=== PATIENT | female | born 1935 | race Caucasian/White ===

== ENCOUNTER → 2017-03-19 | Outpatient (CLI) | payer OTHER, MEDICARE ==
[~2017-03-19] MED LIST: AMOX500C3 PO; CALC12502 PO; CHOL100027 PO; CMD2 PO; DRON400T PO; FURO20TA PO; HYDR12.55 PO; LISI10TA PO; METH10TA6; METO50TA7 PO; MULT-506 PO; NITR0.4S UT; WARF1TAB PO
== END | disposition home or self-care (01) ==
LOC: C.LABBC 13:13
PROVIDERS: ATTEND Internal Medicine Endocrinology, Diabetes & Metabolism
DX: E05.90 Thyrotoxicosis, unspecified without thyrotoxic crisis or storm (principal)

== ENCOUNTER 2017-08-06 06:01 | Day surgery (SDC) | payer OTHER, MEDICARE ==
[2017-07-23 16:18] LABS: HEMATOCRIT 39.1 % (37-47); MEAN CELL VOLUME 93.1 fL (80-100); MEAN CORPUSCULAR HEMOGLOBIN 29.5 pg (25-34); MEAN CORPUSCULAR HGB CONC 31.7 g/dl (32-36); MEAN PLATELET VOLUME 9.6 fL (7.4-10.4); PLATELET COUNT 167 K/uL (130-400); WHITE BLOOD COUNT 5.07 K/uL (4.8-10.8)
[2017-07-23 16:33] LABS: INR 1.7 (0.9-1.1); PARTIAL THROMBOPLASTIN RATIO 1.3; PROTHROMBIN TIME (PATIENT) 18.4 SECONDS (9.0-12.0)
[2017-07-23 16:52] LABS: BLOOD UREA NITROGEN 14 mg/dl (7-18); BUN/CREATININE RATIO 16.4 (10-20); CARBON DIOXIDE 29 mmol/L (21-32); CHLORIDE 104 mmol/L (98-107); CREATININE 0.85 mg/dl (0.60-1.20); GLUCOSE 138 mg/dl (70-99); POTASSIUM 3.9 mmol/L (3.5-5.1); SODIUM 140 mmol/L (136-145)
[~2017-08-06] VITALS: Ht 170.2 cm; Wt 82.0 kg
[~2017-08-06 06:01] MED LIST changes: -AMOX500C3 PO; -FURO20TA PO; -METH10TA6
[2017-08-06 06:26] VITALS: BP 156/69; PULSE 67; TEMP 36.6; O2SAT 97; Ht 170.2 cm; Wt 82.0 kg
[2017-08-06] MEDS ORDERED: NURSING VERBAL MED ORDER ONE (07:02)
[2017-08-06] MEDS ORDERED: SODIUM CHLORIDE 0.9% 1000ML 1,000 ML IV SCH (07:15)
[2017-08-06 07:29] LABS: INR 1.4 (0.9-1.1); PARTIAL THROMBOPLASTIN RATIO 1.2; PROTHROMBIN TIME (PATIENT) 15.3 SECONDS (9.0-12.0)
[2017-08-06] MEDS ORDERED: LIDOCAINE HCL 1% 20 ML VIAL ONE (07:47)
[2017-08-06] MEDS ORDERED: MIDAZOLAM HCL 1 MG/ML 2ML VIAL ONE (07:49)
[2017-08-06] MEDS ORDERED: FENTANYL CITRATE INJ 50 MCG/1 ML 2 ML VIAL ONE (07:49)
[2017-08-06] MEDS ORDERED: SODIUM BICARB 8.4% INJ 50 MEQ/50 ML SYR IV ONE (07:50)
[2017-08-06] MEDS ORDERED: LIDOCAINE/EPINEPHRINE 1% INJ 50 ML VIAL ONE (07:50)
[2017-08-06 07:54] VITALS: BP 156/69; PULSE 67; TEMP 36.6; O2SAT 97
--- NOTE | 2017-08-06 08:03 | History & Physical Bridge Note ---
H&P Re-Evaluation Bridge Note: I have examined the patient, reviewed the History & Physical and in the interval since the performance of the History & Physical I have noted the following changes of clinical significance: No changes noted
--- NOTE | 2017-08-06 08:04 | Procedure Note ---
Pre-Mod Sedation Assessment General Date of Moderate Sedation: Aug 06, 2017. Vital Signs: Vital Signs Past 12 Hours Date Time Temp Pulse Resp B/P (MAP) Pulse Ox O2 Delivery O2 Flow Rate FiO2 08/06/17 07:54 36.6 67 20 156/69 97 Room Air 08/06/17 06:26 36.6 67 20 156/69 (98) 97 Room Air Review Cardiovascular: regular rate, rhythm, no edema Abdomen: normal bowel sounds, non tender Lungs: chest non-tender, lungs clear Airway Class: III Pre-Sedation Airway Assessment Oral Cavity: Dentures Able to Visualize Vocal Cords: No Short Thick Neck: No Hx of Sleep Apnea: No Smoking Status: Never Smoker Mallampati Classification: Class III ASA Classification: Class II Procedure Planning Contraindications-for Mod Sed: None Yes Notes The planned sedation has been discussed with the patient and consent obtained. I have identified the patient, determined the appropriateness of sedation and have assessed the patient immediately prior to the procedure. All medicine(s) and interventions are by my order.
[2017-08-06] MEDS ORDERED: LIDOCAINE HCL 1% 20 ML VIAL INJ ONE ×2 (08:37→08:47)
[2017-08-06] MEDS ORDERED: ORM MISCELLANEOUS MED XX ONE (09:00)
--- NOTE | 2017-08-06 09:14 | Procedure Note ---
Post-Mod Sedation Assessment General Date of Moderate Sedation Aug 06, 2017. Vital Signs: Vital Signs Past 12 Hours Date Time Temp Pulse Resp B/P (MAP) Pulse Ox O2 Delivery O2 Flow Rate FiO2 08/06/17 07:54 36.6 67 20 156/69 97 Room Air 08/06/17 06:26 36.6 67 20 156/69 (98) 97 Room Air Review - Discharge Criteria Vital Signs Stable: Yes Alert/Oriented/Conversant: Yes Returned to Baseline Mental St: Yes Nausea Absent/Minimal: Yes Pain/Discomfort/Absent/Minimal: Yes Normal/Baseline Respirations: Yes Active Bleeding?: No Pt Received D/C Instructions: Yes Prescriptions Given: None Specific Proced. D/C Criteria Distal Pulses Present (Cardiac: N/A Groin site assessed-Card Cath: N/A Voided Prior To Discharge: N/A Discharged Patients Adult Escort/Transportation: Yes
--- NOTE | 2017-08-06 09:15 | [facility] Operative Report ---
Operative Report Operative Date Aug 06, 2017. Pre-Operative Diagnosis Chronic venous insufficiency Post-Operative Diagnosis Chronic venous Insufficiency Procedure(s) Performed Left GSV RFA Surgeon [employer] Surgeon(s) None Estimated Blood Loss 5 Findings Dilated left GSV Specimens None Drains None Anesthesia Local Complication(s) None Disposition Recovery Room / PACU Indications Venous ulcerations Description of Procedure US guided access Left GSV below the knee. Catheter inserted, 3cm from SFJ. Tumescent injected. US confirmed not in deep system. 3:20, 10 cycles of RFA left GSV. No complications. Patient tolerated well. US confirmed no DVT post procedure. I attest to the content of the Intraoperative Record and any orders documented therein. Any exceptions are noted below.
--- NOTE | 2017-08-06 09:16 | Discharge Instructions ---
Discharge Instructions Procedure Procedure Date: Aug 06, 2017. Reason for Visit: Chronic Venous Insufficiency,Z01.818. Discharge Discharge Date: Aug 06, 2017. Discharge Diagnosis: Chronic venous insufficiency Last Recorded Wt (Kilograms): 82 Anesthesia Post Anesthesia Instructions: * Call surgeon for: 1. Temperature elevations greater than 101 degrees F. 2. Uncontrollable pain. 3. Excessive bleeding. 4. Persistent nausea and vomiting. 5. Medication intolerance (nausea, vomiting or rash). * For nausea and vomiting use only clear liquids such as: tea, soda, bouillon until nausea subsides, then gradually increase diet as tolerated. * If you have any concerns or questions, call your surgeon's office. If physician is unavailable and it is an emergency, call 911 or go to the nearest emergency room. Instructions Activity Recommendations: limitations (Can resume normal activities today) Recommended Home Diet: resume previous diet Allergies: Coded Allergies: Sulfa Antibiotics (Verified Allergy, Severe, rash, 08/06/17) Latex1 -Allergic Contact Dermititis (Verified Allergy, Unknown, UNKNOWN, 08/06/17) Follow Up Additional Instructions: Follow instructions as outlined in paperwork from Dr. Garibay' office. Up walking today. Follow up Ultrasound as scheduled. IGOR wrap until scheduled ultrasound Post ultrasound wear compression stockings indefinitely. Any severe pain, present to the emergency room for evaluation for DVT. Follow-up with: As scheduled Shelly Orellana Recommendations: Call your doctor if: * Temperature above 101 degrees * Pain not relieved by pain medicine ordered * There is increased drainage or redness from any incision * You have any unanswered questions or concerns. Your Doctors Instructions noted above were prepared by provider Jose David Garibay. Patient Signature Section: Patient Instructions Signature Page Radha Everett Patient (or Guardian) Signature/Date: I have read and understand the instructions given to me by my caregivers. Caregiver/RN/Doctor Signature/Date: The above-named patient and/or guardian has received patient instructions on this date. + Original Patient Signature Page (only) stays with chart. Please make copy for patient.
[2017-08-06 09:35] VITALS: BP 137/53; PULSE 61; TEMP 36.7; O2SAT 94
[2017-08-06 10:05] VITALS: BP 129/45; PULSE 61; O2SAT 94
== END 2017-08-06 10:15 | disposition home or self-care (01) ==
LOC: C.ACU 06:01
PROVIDERS: ATTEND Internal Medicine Interventional Cardiology
DX: I87.2 Venous insufficiency (chronic) (peripheral) (principal); I48.91 Unspecified atrial fibrillation; I10 Essential (primary) hypertension; E03.9 Hypothyroidism, unspecified; M19.90 Unspecified osteoarthritis, unspecified site; F17.200 Nicotine dependence, unspecified, uncomplicated; Z88.2 Allergy status to sulfonamides; Z91.040 Latex allergy status; Z79.01 Long term (current) use of anticoagulants

== ENCOUNTER → 2017-11-21 | Outpatient (CLI) | payer OTHER, MEDICARE ==
[2017-11-21 19:29] LABS: BLOOD UREA NITROGEN 24 mg/dl (7-18); CALCIUM 8.9 mg/dl (8.5-10.1); CARBON DIOXIDE 28 mmol/L (21-32); CREATININE 0.95 mg/dl (0.60-1.20); GLUCOSE 89 mg/dl (70-99); POTASSIUM 3.9 mmol/L (3.5-5.1); SODIUM 139 mmol/L (136-145)
== END | disposition home or self-care (01) ==
LOC: C.LAB 18:10
PROVIDERS: ATTEND Nurse Practitioner Family
DX: E05.90 Thyrotoxicosis, unspecified without thyrotoxic crisis or storm (principal)

== ENCOUNTER 2018-06-01 19:30 | Emergency (ER) | payer OTHER, MEDICARE ==
[~2018-06-01] VITALS: Ht 170.2 cm; Wt 84.7 kg
[~2018-06-01 19:30] MED LIST changes: -METO50TA7 PO; +METO50TA8 PO
[2018-06-01 19:37] VITALS: TEMP 36.3; Ht 170.2 cm; Wt 84.7 kg
[2018-06-01] MEDS ORDERED: CEFTRIAXONE SOD INJ 1 GM ADDVIAL IV STA (20:02)
[2018-06-01 20:35] LABS: BASO % 0.8 %; BASO ABS # 0.04 K/uL (0-0.2); EOS % 6.8 %; EOS ABS # 0.34 K/uL (0-0.5); HEMATOCRIT 38.1 % (37-47); HEMOGLOBIN 12.5 g/dL (12.0-16.0); IG# 0.01 K/uL (0.00-0.02); LYMPH % 30.3 %; LYMPH ABS # 1.52 K/uL (1.2-3.4); MEAN CELL VOLUME 92.3 fL (80-100); MEAN CORPUSCULAR HEMOGLOBIN 30.3 pg (25-34); MEAN CORPUSCULAR HGB CONC 32.8 g/dl (32-36); MEAN PLATELET VOLUME 9.9 fL (7.4-10.4); MONO % 12.8 %; MONO ABS # 0.64 K/uL (0.11-0.59); NEUT % 49.1 %; NEUT ABS # 2.46 K/uL (1.4-6.5); PLATELET COUNT 174 K/uL (130-400); RED CELL DISTRIBUTION WIDTH CV 13.9 % (11.5-14.5); RED CELL DISTRIBUTION WIDTH SD 46.9 fL (36.4-46.3); WHITE BLOOD COUNT 5.01 K/uL (4.8-10.8)
[2018-06-01] MEDS ORDERED: CEPH500C PO (20:40)
[2018-06-01 20:53] LABS: CALCIUM 8.8 mg/dl (8.5-10.1); CREATININE 0.94 mg/dl (0.60-1.20)
[2018-06-01 21:05] LABS: INR 1.6 (0.9-1.1)
[2018-06-01 21:27] VITALS: BP 151/76; PULSE 62; O2SAT 98
--- NOTE | 2018-06-01 22:04 | EMERGENCY ROOM VISIT NOTE ---
History Report prepared by Gregorio: Alondra Saunders Under the Supervision of: Dr. Eagle Luna M.D. First contact with patient: 19:42 Chief Complaint: SKIN PROBLEM Stated Complaint: SKIN INFECTION ON LEFT ACEVEDO/ANKLE History of Present Illness The patient is an 83 year old female who presents to the Emergency Room with complaints of a persistent skin problem on her left lower leg for the past 3 weeks. She rates her discomfort as an 8/10 in severity. She states she experiences the same issue every summer and her left leg is "draining and hall and stings". She was placed on Augmentin by [facility] recently and states "a report came back that I have a staph infection, and the Augmentin may not help" . She believes she was treated for similar symptoms with Rocephin in the past. She notes [facility] told her "I don't have MRSA". Last night her pain worsened , so she tried to make an appointment with [facility], but was unable to get in until next Friday, which prompted her coming to the ED. The patient denies any recent falls, trauma or fever. She does take daily Coumadin and states her INR's have been good recently. Source of History: patient Onset: 3 weeks ALIGNING CHECKER Position: leg (left) Symptom Intensity: 8/10 Timing: other (persistent) Modifying Factors (Relieving): other (Augmentin) Associated Symptoms: No fevers Review of Systems See HPI for pertinent positives and negatives. A total of ten systems were reviewed and were otherwise negative. Past Medical & Surgical Medical Problems: (1) Atrial fibrillation (2) Benign hypertension (3) Cellulitis and abscess of leg (4) Heart disease (5) Implantation of cardiac pacemaker Family History FH: cancer FH: heart disease Hypertension Social History Smoking Status: Never Smoker Alcohol Use: none Drug Use: none Marital Status: single Housing Status: lives alone Occupation Status: employed Current/Historical Medications Scheduled Calcium Carbonate (Os-Chema 500), 500 MG PO DAILY Cephalexin Monohydrate (Keflex), 500 MG PO QID Cholecalciferol (Vitamin D 1000 Unit), 3,000 INTER.UNIT PO DAILY Dronedarone Hcl (Multaq), 400 MG PO BID Hydrochlorothiazide (Hydrochlorothiazide), 12.5 MG PO DAILY Lisinopril (Prinivil), 10 MG PO DAILY Metoprolol Succ (Toprol Xl) (Toprol-Xl), 50 MG PO DAILY Multivitamin (Multivitamin), 1 TAB PO DAILY Nitroglycerin (Nitrostat), 0.4 MG UT PRN Warfarin Sod (Coumadin), 2 MG PO 6XWK Warfarin Sodium (Coumadin), 1 MG PO THURSDAYS Allergies Coded Allergies: Sulfa Antibiotics (Verified Allergy, Severe, rash, 08/06/17) Latex1 -Allergic Contact Dermititis (Verified Allergy, Unknown, UNKNOWN, 08/06/17) Physical Exam Vital Signs Date Time Temp Pulse Resp B/P (MAP) Pulse Ox O2 Delivery O2 Flow Rate FiO2 06/01/18 21:27 62 151/76 98 06/01/18 19:37 36.3 78 18 177/79 97 Room Air Physical Exam GENERAL: Awake, alert, well-appearing, in no distress HENT: Normocephalic, atraumatic. Oropharynx unremarkable. EYES: Normal conjunctiva. Sclera non-icteric. NECK: Supple. No nuchal rigidity. RESPIRATORY: Clear to auscultation. No wheezes. Normal respiratory effort. CARDIAC: Normal rate. Normal rhythm. Extremities warm and well perfused. GI: Soft, non-distended. No tenderness to palpation. No rebound or guarding. No masses. RECTAL: Deferred. MUSCULOSKELETAL: Atraumatic. Chest examination reveals no tenderness. There is no CVA tenderness to palpation. LOWER EXTREMITIES: Lower extremities with chronic stasis changes, left calf and ankle swelling, some clear serous drainage, mild diffuse erythema without fluctuance or crepitus, intact ROM of left ankle. Calves are equal size bilaterally and non-tender. NEURO: Normal sensorium. No sensory or motor deficits noted. No facial droop. SKIN: Warm and dry. No rash or jaundice noted. Medical Decision & Procedures Laboratory Results 06/01/18 20:25 Red Blood Count 4.13, Mean Corpuscular Volume 92.3, Mean Corpuscular Hemoglobin 30.3, Mean Corpuscular Hemoglobin Concent 32.8, Mean Platelet Volume 9.9, Neutrophils (%) (Auto) 49.1, Lymphocytes (%) (Auto) 30.3, Monocytes (%) (Auto) 12.8, Eosinophils (%) (Auto) 6.8, Basophils (%) (Auto) 0.8, Neutrophils # (Auto ) 2.46, Lymphocytes # (Auto) 1.52, Monocytes # (Auto) 0.64, Eosinophils # (Auto ) 0.34, Basophils # (Auto) 0.04 06/01/18 20:25 Test 06/01/18 20:25 White Blood Count 5.01 K/uL (4.8-10.8) Red Blood Count 4.13 M/uL (4.2-5.4) Hemoglobin 12.5 g/dL (12.0-16.0) Hematocrit 38.1 % (37-47) Mean Corpuscular Volume 92.3 fL (80-100) Mean Corpuscular Hemoglobin 30.3 pg (25-34) Mean Corpuscular Hemoglobin Concent 32.8 g/dl (32-36) Platelet Count 174 K/uL (130-400) Mean Platelet Volume 9.9 fL (7.4-10.4) Neutrophils (%) (Auto) 49.1 % Lymphocytes (%) (Auto) 30.3 % Monocytes (%) (Auto) 12.8 % Eosinophils (%) (Auto) 6.8 % Basophils (%) (Auto) 0.8 % Neutrophils # (Auto) 2.46 K/uL (1.4-6.5) Lymphocytes # (Auto) 1.52 K/uL (1.2-3.4) Monocytes # (Auto) 0.64 K/uL (0.11-0.59) Eosinophils # (Auto) 0.34 K/uL (0-0.5) Basophils # (Auto) 0.04 K/uL (0-0.2) RDW Standard Deviation 46.9 fL (36.4-46.3) RDW Coefficient of Variation 13.9 % (11.5-14.5) Immature Granulocyte % (Auto) 0.2 % Immature Granulocyte # (Auto) 0.01 K/uL (0.00-0.02) Prothrombin Time 16.2 SECONDS (9.0-12.0) Prothromb Time International Ratio 1.6 (0.9-1.1) Anion Gap 6.0 mmol/L (3-11) Est Creatinine Clear Calc Drug Dose 51.6 ml/min Estimated GFR () 65.5 Estimated GFR (Non- 56.5 BUN/Creatinine Ratio 25.3 (10-20) Calcium Level 8.8 mg/dl (8.5-10.1) Laboratory results reviewed by me Medications Administered Medications (Trade) Dose Ordered Sig/Cynthia Route Start Time Stop Time Status Last Admin Dose Admin Ceftriaxone Sodium (Rocephin Inj) 1 gm NOW STAT IV 06/01/18 20:02 06/01/18 20:03 DC 06/01/18 20:32 1 GM ED Course 1943: The patient was evaluated in room B9. A complete history and physical exam was performed. 2001: Rocephin 1 gm IV. 2109: I reevaluated the patient. She is feeling well and is ready to go home. I discussed her results and discharge instructions and she verbalized complete understanding and agreement. Medical Decision Triage Nursing notes reviewed. The patient's presentation and history were concerning for swelling and redness of the skin. Differential diagnosis: Etiologies such as cellulitis, abscess, MRSA infection, DVT, necrotizing fasciitis, dermatitis, drug eruption, as well as others were entertained. Patient presents complaining of approximately 2 weeks of swelling of her left leg with some weeping clearish kind of drainage. No fevers. No trauma reported. Some burning and difficulty moving her foot. Seen in urgent care and on a course of Augmentin. Wound culture from there was reportedly staph but not MRSA. States that antibiotic has helped a little bit but still having issues. Normally gets this every year states she normally responds to a dose of ceftriaxone. Has a wound clinic appointment established for next week. On Coumadin and doubt acute DVT. No evidence of necrotizing fasciitis. Renal lateral and doubt this is CHF exacerbation. His evidence of chronic stasis here likely chronic edema component to it. Do not believe x-rays be helpful. Doubt gout. Does have some cellulitic changes but no evidence of abscess. We will give a dose of ceftriaxone and the patient home on Keflex for the next week ; she states that this has been very helpful in the past. Discussed return precautions which she is agreeable with. Will follow up with wound care. INR is low and advised to take 3 mg of Coumadin tonight and discuss with her doctor further testing by the end of the week and Coumadin dosing. Medication Reconcilliation Current Medication List: was personally reviewed by me Blood Pressure Screening Patient's blood pressure: Elevated blood pressure Blood pressure disposition: Referred to PCP Impression Primary Impression: Cellulitis of leg, left Additional Impressions: Leg edema, left Subtherapeutic international normalized ratio (INR) Scribe Attestation The scribe's documentation has been prepared under my direction and personally reviewed by me in its entirety. I confirm that the note above accurately reflects all work, treatment, procedures, and medical decision making performed by me. Departure Information Dispostion Home / Self-Care Prescriptions Cephalexin Monohydrate (Keflex) 500 Mg Cap 500 MG PO QID for 7 Days, #28 CAP Prov: Eagle Luna M.D. 06/01/18 Referrals No Doctor, Assigned (PCP) Patient Instructions My [facility] Additional Instructions Please utilize the prescribed antibiotic to help with your symptoms. Elevate yourr legs as possible. Change your bandages at least twice a day to help keep the area dry. If worsening of your symptoms or new symptoms occur please feel free to return here at any time. Follow-up with wound care as scheduled. Take 3mg of warfarin tonight and talk to your doctors office tomorrow for repetat INR testing in next 3-5 days and further coumadin instructions. Problem Qualifiers
== END 2018-06-01 21:27 | disposition home or self-care (01) ==
LOC: C.EDB 19:32
DX: L03.116 Cellulitis of left lower limb (principal); R60.0 Localized edema; R79.1 Abnormal coagulation profile; I48.91 Unspecified atrial fibrillation; I11.9 Hypertensive heart disease without heart failure; Z79.01 Long term (current) use of anticoagulants; Z79.899 Other long term (current) drug therapy; Z88.2 Allergy status to sulfonamides; Z91.040 Latex allergy status; Z82.49 Family history of ischemic heart disease and other diseases of the circulatory system

== ENCOUNTER 2020-06-24 08:03 | Inpatient (IN) ==
[2020-06-24] MEDS ORDERED: cefTRIAXone SODIUM 2,000 MG/70 ML BAG IV STA (08:31)
[2020-06-24 09:06] LABS: Basophils # (auto) 0.01 K/uL (0-0.2); Basophils % (auto) 0.1 %; Eosinophils # (auto) 0.04 K/uL (0-0.5); Eosinophils % (auto) 0.4 %; Hematocrit (blood only) 34.2 % (37-47); Hemoglobin 11.4 g/dL (12.0-16.0); Immature Granulocytes # (auto) 0.06 K/uL (0.00-0.02); Immature Granulocytes % (auto) 0.5 %; Lymphocytes # (auto) 0.48 K/uL (1.2-3.4); Lymphocytes % (auto) 4.3 %; Mean Corpuscular Hemoglobin 30.7 pg (25-34); Mean Corpuscular Hgb Conc 33.3 g/dL (32-36); Mean Corpuscular Volume 92.2 fL (80-100); Mean Platelet Volume 9.9 fL (7.4-10.4); Monocytes # (auto) 0.67 K/uL (0.11-0.59); Monocytes % (auto) 5.9 %; Neutrophils # (auto) 10.01 K/uL (1.4-6.5); Neutrophils % (auto) 88.8 %; Platelet Count 120 K/uL (130-400); RDW Coefficient of Variation 14.8 % (11.5-14.5); RDW Standard Deviation 50.1 fL (36.4-46.3); Red Blood Count 3.71 M/uL (4.2-5.4); White Blood Count 11.27 K/uL (4.8-10.8)
--- NOTE | 2020-06-24 09:11 | Emergency Department Note ---
History of Present Illness General Chief complaint: Leg Injury/Pain Stated complaint: CELLULITIS - LEFT LEG Time Seen by Provider: 06/24/20 08:15 Source: patient Mode of arrival: ambulatory Limitations: no limitations History of Present Illness Provider complaint: Cellulitis Maximum Pain Intensity: 3 This is an 85-year-old female who presents to the ED with a chief complaint of cellulitis of the left leg. The patient states that she noticed some redness in her left ankle a few days ago. She was seen at [facility] 2 days ago on . She started Keflex evening. The patient states that she has had increased swelling and redness to her leg despite the Keflex. She also reports that the Keflex is causing her significant diarrhea. She denies any fevers. No nausea or vomiting. Denies any other complaints. Nothing makes her symptoms better. Home Medications Home Medications Medication Instructions Recorded Confirmed Type calcium carbonate 500 mg calcium 500 mg PO BID tab 06/19/18 06/24/20 History (1,250 mg) tablet cholecalciferol (vitamin D3) 25 3,000 units PO DAILY cap 06/19/18 06/24/20 History mcg (1,000 unit) capsule dronedarone 400 mg tablet 400 mg PO BID 06/19/18 06/24/20 History metoprolol succinate 50 mg 50 mg PO DAILY 06/19/18 06/24/20 History tablet,extended release 24 hr multivitamin 1 tab PO DAILY 06/19/18 06/24/20 History nitroglycerin 0.4 mg sublingual 0.4 mg SL Q5M PRN 06/19/18 06/24/20 History tablet warfarin 1 mg tablet 1 mg PO UD 06/19/18 06/24/20 History biotin 10 mg tablet 10 mg PO DAILY tab 04/05/19 06/24/20 History hydrochlorothiazide 12.5 mg tablet 12.5 mg PO DAILY #90 tab 05/23/20 06/24/20 Rx lisinopril 10 mg tablet 10 mg PO DAILY #90 tab 05/23/20 06/24/20 Rx warfarin [Jantoven] 2 mg PO UD 06/24/20 06/24/20 History Allergies Allergy/AdvReac Type Severity Reaction Status Date / Time Sulfa (Sulfonamide Allergy Severe rash Verified 06/24/20 08:47 Antibiotics) latex Allergy Unknown UNKNOWN Verified 06/24/20 08:47 cephalexin Allergy Diarrhea Unverified 06/24/20 08:48 Past Med/Surg History Medical History Arthritis Atrial fibrillation Atrial fibrillation, chronic Benign hypertension Cellulitis of left lower extremity without foot Cellulitis of leg, except foot Cellulitis of right lower extremity Chronic venous insufficiency Edema of left lower extremity Heart disease 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 Hypertension Hyperthyroidism Multinodular goiter Osteomyelitis of toe of right foot Osteopenia Pacemaker (~09/2015) Venous ulcer Vitamin D deficiency Surgical History History of arthroscopy of knee History of cataract surgery History of tonsillectomy and adenoidectomy Family History Mother Cardiac disorder Father Hypertension Denies family history of Ovarian cancer Prostate cancer Myocardial infarction Breast cancer Colorectal cancer Social History Smoking Status: Never smoker Hx Alcohol Use: No Hx Substance Use: No Preferred Language: Urdu Visual Impairment: No Limitations Hearing Ability: Normal Cook Seafood Required: No Beliefs That Will Affect Care: None marital status: Single Current Living Situation: Alone current occupational status: employed current occupation: [employer] Feels Safe at Home: Yes Childhood Exposure to Second-Hand Smoke: No Physical Activity Frequency: Does not Exercise Seatbelt Use: always Review of Systems A total of 10 systems reviewed and were otherwise negative Physical Exam Vital Signs Vital Signs - 24 hr 06/24/20 08:08 Temperature 37.0 C Temperature Source Oral Pulse Rate 87 Respiratory Rate 16 Respiratory Effort / Characteristics Non-Labored Spontaneous Respiratory Depth Normal Blood Pressure 154/75 H Blood Pressure Mean 101 Blood Pressure Position Sitting Pulse Oximetry 96 Oxygen Delivery Method Room Air Sepsis Recent Fever Within 48 Hours No Sepsis New/Unexplained Change in Mental Status No Sepsis Action Taken by Nursing No Action Required CONSTITUTIONAL/VITAL SIGNS: Reviewed / noted above. GENERAL: Non-toxic in appearance. INTEGUMENTARY: Warm, dry, and [place]. HEAD: Normocephalic. EYES: without scleral icterus or trauma. ENT/OROPHARYNX: clear and moist. LYMPHADENOPATHY/NECK: Is supple without lymphadenopathy or meningismus. RESPIRATORY: Lungs clear and equal. CARDIOVASCULAR: Regular rate and rhythm. GI/ABDOMEN: Soft and nontender. No organomegaly or pulsatile mass. No rebound or guarding. Normal bowel sounds. EXTREMITIES: Warm and well perfused. There is erythema as well as edema to the left leg compared to the right. There are chronic venous stasis changes of both legs. There is also noted to be an ulcer on the lateral aspect of the leg near the lateral malleolus with no significant drainage. This is from an injury that occurred a couple weeks ago. BACK: No CVA tenderness. NEUROLOGICAL: Intact without focal deficits. PSYCHIATRIC: normal affect. MUSCULOSKELETAL: Normally developed with good muscle tone. TRIAGE NURSING DOCUMENTATION REVIEWED. Course Administered Medications Discontinued Medications Ceftriaxone Sodium (Rocephin) 2,000 mg in 70 mls @ 140 mls/hr IV NOW STA Stop: 06/24/20 09:00 Last Admin: 06/24/20 09:02 Dose: 140 mls/hr Documented by: [id number] Medical Decision Making Differential Diagnosis Cellulitis, abscess, MRSA infection, DVT, necrotizing fasciitis, dermatitis, drug eruption, allergic reaction, as well as other pathologies. Medical Records Attestation: I reviewed the patient's medical records. Home Medications Current Medication List: was personally reviewed by me Laboratory Data Attestation: I reviewed the patient's lab results. Result diagrams: 06/24/20 08:57 06/24/20 08:57 Lab Results 06/24/20 06/24/20 06/24/20 Range/Units 08:57 08:57 08:57 WBC 11.27 H (4.8-10.8) K/uL RBC 3.71 L (4.2-5.4) M/uL Hgb 11.4 L (12.0-16.0) g/dL Hct 34.2 L (37-47) % MCV 92.2 (80-100) fL MCH 30.7 (25-34) pg MCHC 33.3 (32-36) g/dL RDW Std Deviation 50.1 H (36.4-46.3) fL RDW Coeff of Caterina 14.8 H (11.5-14.5) % Plt Count 120 L (130-400) K/uL MPV 9.9 (7.4-10.4) fL Immature Gran % (Auto) 0.5 % Neut % (Auto) 88.8 % Lymph % (Auto) 4.3 % [place] % (Auto) 5.9 % Eos % (Auto) 0.4 % Baso % (Auto) 0.1 % Neut # (Auto) 10.01 H (1.4-6.5) K/uL Lymph # (Auto) 0.48 L (1.2-3.4) K/uL [place] # (Auto) 0.67 H (0.11-0.59) K/uL Eos # (Auto) 0.04 (0-0.5) K/uL Baso # (Auto) 0.01 (0-0.2) K/uL Immature Gran # (Auto) 0.06 H (0.00-0.02) K/uL PT 18.6 H (9.0-12.0) Seconds INR 1.8 H (0.9-1.1) Sodium 134 L (136-145) mmol/L Potassium 3.9 (3.5-5.1) mmol/L Chloride 102 (98-107) mmol/L Carbon Dioxide 24 (21-32) mmol/L Anion Gap 8.0 (3-11) BUN 43 H (7-18) mg/dl Creatinine 1.28 H (0.6-1.2) mg/dl Est Cr Clr Drug Dosing Not Reportable Est GFR ( Amer) 44.5 Est GFR (Non-Af Amer) 38.4 BUN/Creatinine Ratio 33.2 H (10-20) Glucose 147 H (70-99) mg/dl Calcium 9.2 (8.5-10.1) mg/dl MDM Narrative Patient presents with a left leg cellulitis and edema. She is not tolerating Keflex well and has been on the Keflex since with worsening. Her vital signs reveal hypertension. The patient blood work reveals a white blood cell count of 11.2. Her INR is 1.8. BUN is 43 and creatinine is 1.28. Glucose is 147. The patient was told the results of the test. She was given IV Rocephin 2 g. She will be seen by the hospitalist for further inpatient evaluation and care Impression & Plan Cellulitis of left leg Discharge Plan Visit Data Chief Complaint: Leg Injury/Pain Stated Complaint: CELLULITIS - LEFT LEG ED Provider: Hayden Moncada Discharge Problem: Cellulitis of left leg Patient Disposition: Being Evaluated by Hospitalist Forms Stand Alone Forms: My [facility] Prescriptions Prescriptions: No Action calcium carbonate 500 mg calcium (1,250 mg) tablet 500 mg PO BID RF: 0 cholecalciferol (vitamin D3) 1,000 unit capsule 3,000 units PO DAILY RF: 0 dronedarone [Multaq] 400 mg tablet 400 mg PO BID RF: 0 metoprolol succinate [Toprol XL] 50 mg tablet extended release 24 hr 50 mg PO DAILY RF: 0 multivitamin tablet 1 tab PO DAILY RF: 0 nitroglycerin [Nitrostat] 0.4 mg tablet, sublingual 0.4 mg SL Q5M PRN (Reason: Chest Pain) RF: 0 warfarin [Coumadin] 1 mg tablet 1 mg PO UD RF: 0 hydrochlorothiazide 12.5 mg tablet 12.5 mg PO DAILY Qty: 90 RF: 1 lisinopril [Prinivil] 10 mg tablet 10 mg PO DAILY Qty: 90 RF: 1 biotin 10 mg tablet 10 mg PO DAILY RF: 0 warfarin [Jantoven] 1 mg tablet 2 mg PO UD RF: 0 Referrals Referrals: Kelvin Vee DO [Primary Care Provider] -
[2020-06-24 09:16] LABS: INR 1.8 (0.9-1.1); Prothrombin Time 18.6 Seconds (9.0-12.0)
[2020-06-24 09:24] LABS: BUN Creatinine Ratio 33.2 (10-20); Blood Urea Nitrogen 43 mg/dl (7-18); Calcium 9.2 mg/dl (8.5-10.1); Carbon Dioxide 24 mmol/L (21-32); Chloride 102 mmol/L (98-107); Est GFR (African American) 44.5; Est GFR (Non-African American) 38.4; Glucose 147 mg/dl (70-99); Potassium 3.9 mmol/L (3.5-5.1); Sodium 134 mmol/L (136-145)
--- NOTE | 2020-06-24 10:54 | History & Physical Report ---
Date of Service June 24, 2020 Assessment & Plan (1) Cellulitis of left leg: Prior keflex use but caused diarrhea - cellulitis did not clearly fail to clear with cephalosporins Ceftriaxone 2g IV daily started on admission and with noted improvement (2) Venous ulcer: Wound nurse consult (3) Hypertension: Continue lisinopril 10mg PO daily, metoprolol succinate 50mg PO daily (4) Atrial fibrillation: Continue metoprolol for rate control, Multaq for rhythm control. Currently with RRR. Continue usual warfarin dosing Monitor INR with abx use (5) DVT prophylaxis: Coumadin Admission and Anticipated Discharge Date Admission Date: 06/23/2020 History of Present Illness Chief Complaint: Cellulitis Primary Care Provider: DO Radha Leggett is an 85 MWF 1mg, 2mg the rest of the time. Allergies Allergy/AdvReac Type Severity Reaction Status Date / Time Sulfa (Sulfonamide Allergy Severe rash Verified 06/24/20 08:47 Antibiotics) latex Allergy Unknown UNKNOWN Verified 06/24/20 08:47 cephalexin Allergy Diarrhea Unverified 06/24/20 08:48 Home Medications Home Medications Medication Instructions Recorded Confirmed Type calcium carbonate 500 mg calcium 500 mg PO BID tab 06/19/18 06/24/20 History (1,250 mg) tablet cholecalciferol (vitamin D3) 25 3,000 units PO DAILY cap 06/19/18 06/24/20 History mcg (1,000 unit) capsule dronedarone 400 mg tablet 400 mg PO BID 06/19/18 06/24/20 History metoprolol succinate 50 mg 50 mg PO DAILY 06/19/18 06/24/20 History tablet,extended release 24 hr multivitamin 1 tab PO DAILY 06/19/18 06/24/20 History nitroglycerin 0.4 mg sublingual 0.4 mg SL Q5M PRN 06/19/18 06/24/20 History tablet warfarin 1 mg tablet 1 mg PO UD 06/19/18 06/24/20 History biotin 10 mg tablet 10 mg PO DAILY tab 04/05/19 06/24/20 History hydrochlorothiazide 12.5 mg tablet 12.5 mg PO DAILY #90 tab 05/23/20 06/24/20 Rx lisinopril 10 mg tablet 10 mg PO DAILY #90 tab 05/23/20 06/24/20 Rx warfarin [Jantoven] 2 mg PO UD 06/24/20 06/24/20 History Past Med/Surg History Medical History Arthritis Atrial fibrillation Atrial fibrillation, chronic Benign hypertension Cellulitis of left lower extremity without foot Cellulitis of leg, except foot Cellulitis of right lower extremity Chronic venous insufficiency Edema of left lower extremity Heart disease 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 Hypertension Hyperthyroidism Multinodular goiter Osteomyelitis of toe of right foot Osteopenia Pacemaker (~09/2015) Venous ulcer Vitamin D deficiency Surgical History History of arthroscopy of knee History of cataract surgery History of tonsillectomy and adenoidectomy Family History Mother Cardiac disorder Father Hypertension Denies family history of Ovarian cancer Prostate cancer Myocardial infarction Breast cancer Colorectal cancer Social History Smoking Status: Never smoker Hx Alcohol Use: No Hx Substance Use: No Preferred Language: Thai Communication Ability: Effective Visual Impairment: No Limitations Hearing Ability: Normal 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 Beliefs That Will Affect Care: None marital status: / Current Living Situation: Alone current occupational status: employed 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 [employer] Other Information That Helps Us Care for You: No Feels Safe at Home: Yes Safety Concerns: Feels Safe At This Time Childhood Exposure to Second-Hand Smoke: No Physical Activity Frequency: Does not Exercise Seatbelt Use: always Physical Exam Constitutional: well developed and well nourished; no acute distress Eyes: + anicteric sclerae; normal pupil size Respiratory: normal respiratory effort, lungs clear to auscultation Cardiovascular: Rate/Rhythm: regular rate and regular rhythm Heart Sounds: no murmur Extremities: normal capillary refill Gastrointestinal (Abdomen): normal bowel sounds, soft, nontender, no hepatosplenomegaly Musculoskeletal: no cyanosis or clubbing, extremities motor strength 5/5 Skin: Erythema, swelling and warmth of LLE from ankle to knee, consistent with cellulitis. Neurologic: moves all extremities and awake; not confused Results & Data Results & Data ([facility]) Vital Signs (Past 12 Hours) Vital Signs Temp Pulse Pulse Resp BP BP Pulse Ox 06/24/20 10:00 78 20 146/70 H 99 06/24/20 08:08 37.0 C 87 16 154/75 H 96 Code Status & VTE Plan Code Status Full VTE Prophylaxis Plan VTE Prophylaxis will be ordered: Yes PG Care Time/CCT Total # of Minutes Spent Total Time Spent with Patient: Total time spent is greater than 50% in coordination of care (as documented) at patient's floor/unit and/or counseling patient: Coding Level of Care Code 59649 OBS Care - Level 2 Diagnoses Cellulitis of left leg L03.116 Venous ulcer I83.009; L97.909 Hypertension I10 Atrial fibrillation I48.91 DVT prophylaxis Z29.9
[2020-06-24] MEDS ORDERED: ALUMINUM/MAGNESIUM SUSP 30 ML UDC PO PRN (12:12)
[2020-06-24] MEDS ORDERED: ONDANSETRON INJ 2 MG/ML 2 ML VIAL IV PRN (12:12)
[2020-06-24] MEDS ORDERED: NITROGLYCERIN SL 0.4 MG/TAB TAB SL PRN (12:12)
[2020-06-24] MEDS ORDERED: POLYETHYLENE (MIRALAX) 17 GM PACK PO PRN (12:12)
[2020-06-24] MEDS: NSS + 20MEQ KCL 20 MEQ/1,000 ML BAG IV SCH ×2 (13:49→22:16)
[2020-06-24 15:05] LABS: Appearance Urine Cloudy (Clear); Bacteria Urine Automated Negative (Negative); Bilirubin Urine Negative (Negative); Blood Urine Trace (Negative); Color Urine Yellow; Epithelial Cell Urine Auto 20-30 /lpf (0-5); Glucose Urine UA Negative (Negative); Ketones Urine Negative (Negative); Leukocyte Esterase Urine Negative (Negative); Nitrite Urine Negative (Negative); Protein Urine Trace (Negative); RBC Urine Automated 0-4 /hpf (0-4); Urobilinogen Urine Negative (Negative)
[2020-06-24] MEDS: WARFARIN SOD 2 MG TAB PO SCH (17:13)
[2020-06-24] MEDS ORDERED: COUGH DROP (SUGAR FREE) LOZ 24 LOZ/1 BOX BUCCAL ONE (21:15)
[2020-06-24] MEDS: CALCIUM CARBONATE 1250MG TAB PO SCH (21:18)
[2020-06-24] MEDS: DRONEDARONE HCL 400 MG TAB PO SCH (21:19)
[2020-06-25] MEDS: ACETAMINOPHEN 325 MG TAB PO PRN ×3 (01:42→22:28)
[2020-06-25 05:47] LABS: Basophils # (auto) 0.01 K/uL (0-0.2); Basophils % (auto) 0.1 %; Eosinophils # (auto) 0.18 K/uL (0-0.5); Eosinophils % (auto) 2.4 %; Hemoglobin 9.3 g/dL (12.0-16.0); Immature Granulocytes # (auto) 0.03 K/uL (0.00-0.02); Immature Granulocytes % (auto) 0.4 %; Lymphocytes # (auto) 1.05 K/uL (1.2-3.4); Lymphocytes % (auto) 14.1 %; Mean Corpuscular Hemoglobin 30.1 pg (25-34); Mean Corpuscular Hgb Conc 32.1 g/dL (32-36); Mean Corpuscular Volume 93.9 fL (80-100); Mean Platelet Volume 9.8 fL (7.4-10.4); Monocytes # (auto) 0.74 K/uL (0.11-0.59); Monocytes % (auto) 9.9 %; Neutrophils # (auto) 5.46 K/uL (1.4-6.5); Neutrophils % (auto) 73.1 %; Platelet Count 110 K/uL (130-400); RDW Coefficient of Variation 14.9 % (11.5-14.5); RDW Standard Deviation 50.5 fL (36.4-46.3); Red Blood Count 3.09 M/uL (4.2-5.4); White Blood Count 7.47 K/uL (4.8-10.8)
[2020-06-25] MEDS: NSS + 20MEQ KCL 20 MEQ/1,000 ML BAG IV SCH ×3 (06:17→22:02)
[2020-06-25 06:22] LABS: INR 1.7 (0.9-1.1); Prothrombin Time 17.9 Seconds (9.0-12.0)
[2020-06-25 06:39] LABS: BUN Creatinine Ratio 32.3 (10-20); Calcium 8.2 mg/dl (8.5-10.1); Creatinine Clr Calc Pharmacy 55.8 ml/min; Est GFR (African American) 72.9; Est GFR (Non-African American) 62.9; Potassium 3.8 mmol/L (3.5-5.1)
[2020-06-25] MEDS: DRONEDARONE HCL 400 MG TAB PO SCH ×2 (08:06→20:21)
[2020-06-25] MEDS: CALCIUM CARBONATE 1250MG TAB PO SCH ×2 (08:06→20:21)
[2020-06-25] MEDS: CHOLECALCIFEROL 1,000 UNITS 25 MCG TAB PO SCH (08:07)
[2020-06-25] MEDS: METOPROLOL SUCC 50MG EXT REL TAB PO SCH (08:07)
[2020-06-25] MEDS: MULTIVITAMIN TAB PO SCH (08:07)
[2020-06-25] MEDS: lisinopriL 10 MG TAB PO SCH (08:07)
[2020-06-25] MEDS: cefTRIAXone SODIUM 2,000 MG in DEXTROSE 5% 50 ML IV SCH (08:13)
[2020-06-25] MEDS ORDERED: NON-FORMULARY MEDICATION (Biotin 10 MG) PO SCH (09:00)
--- NOTE | 2020-06-25 16:19 | Hospitalist Progress Note ---
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 2g IV daily started on admission and with noted improvement Transition to PO tomorrow if ongoing improvment WBC elevated on admission, WNL now Wound cx done on the RLE in the past show MDR staph, enterobacter No cx on the LLE done prior Loose stools, add probiotic (2) Venous ulcer: Wound nurse consult (3) Hyperthyroidism: (4) Hypertension: (5) Atrial fibrillation: continue home meds Coumadin as at home Monitor INR with abx use (6) Scalp lesion: Pt states hx of some sort of atypical scalp lesion findings in the past, but denies melanoma Has been putting off derm appt Advised to be seen ANISHA given concerning appearance on several lesions noted (7) Pacemaker: Noted, 09/2015 (8) DVT prophylaxis: Coumadin Admission and Anticipated Discharge Date Admission Date: June 24, 2020 Subjective Pt states she is feeling overall improved. She states her LLE is still tight, but the swelling is much better. No pain. Still with discoloration, but she states that she has baseline discoloration "so it always takes a while to look better". Tolerating PO without issue. Pt denies fever, SOB, chest pain, abd pain, n/v. No denia diarrhea, but did note loose stools starting today. Review of Systems Review of Systems: Pertinent positives and negatives reviewed in HPI--all others negative Physical Exam Constitutional: WD/WN, vitals as above Eyes: normal visual vicente by confrontation and + anicteric sclerae Neck: normal visual inspection and trachea midline Respiratory: normal respiratory effort, lungs clear to auscultation Cardiovascular: Rate/Rhythm: regular rate and regular rhythm Gastrointestinal (Abdomen): Inspection/Auscultation: abdomen not distended Percussion/Palpation: abdomen soft; abdomen nontender Musculoskeletal: Head/Neck/Chest: normocephalic and head atraumatic negative for edema, peripheral pulses intact Skin: no rashes, warm and dry + lesion (multiple lesions noted on scalp) and + erythema (regressing from marker lines, also noted for chronic discoloration) Neurologic: awake; not confused Speech / Cognition: normal speech Psychiatric: A+Ox3, euthymic affect Results & Data Results & Data ([facility]) Vital Signs (Past 12 Hours) Vital Signs Temp Pulse Resp BP Pulse Ox 06/25/20 15:32 36.6 C 75 17 138/77 95 06/25/20 07:22 36.5 C 64 16 108/61 95 PG Care Time/CCT Total # of Minutes Spent Total Time Spent with Patient: Total time spent is greater than 50% in coordination of care (as documented) at patient's floor/unit and/or counseling patient: Coding Level of Care Code 13913 Subseq Hosp Care Lvl 3 Diagnoses Cellulitis of left leg L03.116 Venous ulcer I83.009; L97.909 Hyperthyroidism E05.90 Hypertension I10 Atrial fibrillation I48.91 Scalp lesion L98.9 Pacemaker Z95.0 DVT prophylaxis Z29.9
[2020-06-25] MEDS: WARFARIN SOD 2 MG TAB PO SCH (17:02)
[2020-06-25] MEDS: LACTOBACILLUS ACIDOPHILUS (FLORANEX) TAB PO SCH ×2 (17:59→20:21)
[2020-06-26] MEDS: NSS + 20MEQ KCL 20 MEQ/1,000 ML BAG IV SCH ×3 (05:19→21:27)
[2020-06-26] MEDS: ACETAMINOPHEN 325 MG TAB PO PRN ×3 (06:04→21:44)
[2020-06-26 08:46] LABS: INR 1.8 (0.9-1.1); Prothrombin Time 18.7 Seconds (9.0-12.0)
[2020-06-26] MEDS: DRONEDARONE HCL 400 MG TAB PO SCH ×2 (09:07→20:30)
[2020-06-26] MEDS: LACTOBACILLUS ACIDOPHILUS (FLORANEX) TAB PO SCH ×4 (09:07→20:29)
[2020-06-26] MEDS: CALCIUM CARBONATE 1250MG TAB PO SCH ×2 (09:08→20:30)
[2020-06-26] MEDS: METOPROLOL SUCC 50MG EXT REL TAB PO SCH (09:08)
[2020-06-26] MEDS: lisinopriL 10 MG TAB PO SCH (09:08)
[2020-06-26] MEDS: CHOLECALCIFEROL 1,000 UNITS 25 MCG TAB PO SCH (09:09)
[2020-06-26] MEDS: MULTIVITAMIN TAB PO SCH (09:09)
[2020-06-26] MEDS: cefTRIAXone SODIUM 2,000 MG in DEXTROSE 5% 50 ML IV SCH (09:19)
--- NOTE | 2020-06-26 14:37 | Hospitalist Progress Note ---
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 Given that pt felt sx were worsening when she started keflex 500mg TID but much improved on ceftriaxone, will switch to cefdinir 300mg Q12 x 7 days total from 06/24 Pt already had today's dose of ceftriaxone, will switch to PO tomorrow Wound cx done on the RLE in the past show MDR staph, enterobacter No cx on the LLE done prior Loose stools resolved with probiotic (2) Venous ulcer: Wound nurse consult (3) Hyperthyroidism: (4) Hypertension: (5) Atrial fibrillation: continue home meds Coumadin as at home Monitor INR with abx use (6) Scalp lesion: Pt states hx of some sort of atypical scalp lesion findings in the past, but denies melanoma Has been putting off derm appt Advised to be seen ANISHA given concerning appearance on several lesions noted (7) Pacemaker: Noted, 09/2015 (8) DVT prophylaxis: Coumadin Admission and Anticipated Discharge Date Admission Date: June 26, 2020 Subjective Pt again notes feeling overall improved. She states her LLE is still tight, mostly around the ankle, but the swelling continues to improve. No pain. Still with discoloration, but she states that she has baseline discoloration "so it always takes a while to look better". Tolerating PO without issue. Pt denies fever, SOB, chest pain, abd pain, n/v. Pt started a probiotic yesterday and feels that the loose stools are resolved now. She did have a bowel movement that was formed today. Nursing addressed L lateral malleolus that appears to have become ulcerated. [facility] has not seen pt yet. Review of Systems Review of Systems: Pertinent positives and negatives reviewed in HPI--all others negative Physical Exam Constitutional: WD/WN, vitals as above Eyes: normal visual vicente by confrontation and + anicteric sclerae Neck: normal visual inspection and trachea midline Respiratory: normal respiratory effort, lungs clear to auscultation Cardiovascular: Rate/Rhythm: regular rate and regular rhythm Gastrointestinal (Abdomen): Inspection/Auscultation: abdomen not distended Percussion/Palpation: abdomen soft; abdomen nontender Musculoskeletal: Head/Neck/Chest: normocephalic and head atraumatic Skin: no rashes, warm and dry + lesion (multiple lesions noted on scalp), + erythema (regressing from marker lines, also noted for chronic discoloration) and + excoriations (clear yellow fluid drainage from multiple regions around ankle) Neurologic: awake; not confused Speech / Cognition: normal speech Psychiatric: A+Ox3, euthymic affect Results & Data Results & Data ([facility]) Vital Signs (Past 12 Hours) Vital Signs Temp Pulse Resp BP Pulse Ox 06/26/20 07:04 36.7 C 65 20 113/68 97 PG Care Time/CCT Total # of Minutes Spent Total Time Spent with Patient: Total time spent is greater than 50% in coordination of care (as documented) at patient's floor/unit and/or counseling patient: Coding Level of Care Code 01792 Subseq Hosp Care Lvl 2 Diagnoses Cellulitis of left leg L03.116 Venous ulcer I83.009; L97.909 Hyperthyroidism E05.90 Hypertension I10 Atrial fibrillation I48.91 Scalp lesion L98.9 Pacemaker Z95.0 DVT prophylaxis Z29.9
[2020-06-26] MEDS: WARFARIN SOD 1 MG TAB PO SCH (16:20)
[2020-06-26] MEDS: SIMETHICONE 80 MG CHEW PO PRN (21:26)
[2020-06-27] MEDS: NSS + 20MEQ KCL 20 MEQ/1,000 ML BAG IV SCH (04:13)
[2020-06-27 05:54] LABS: INR 2.2 (0.9-1.1); Prothrombin Time 21.9 Seconds (9.0-12.0)
[2020-06-27] MEDS: LACTOBACILLUS ACIDOPHILUS (FLORANEX) TAB PO SCH ×4 (08:42→20:44)
[2020-06-27] MEDS: CALCIUM CARBONATE 1250MG TAB PO SCH ×2 (08:42→20:44)
[2020-06-27] MEDS: DRONEDARONE HCL 400 MG TAB PO SCH ×2 (08:43→20:44)
[2020-06-27] MEDS: MULTIVITAMIN TAB PO SCH (08:43)
[2020-06-27] MEDS: lisinopriL 10 MG TAB PO SCH (08:43)
[2020-06-27] MEDS: CHOLECALCIFEROL 1,000 UNITS 25 MCG TAB PO SCH (08:43)
[2020-06-27] MEDS: ACETAMINOPHEN 325 MG TAB PO PRN ×2 (08:44→16:45)
[2020-06-27] MEDS: METOPROLOL SUCC 50MG EXT REL TAB PO SCH (08:44)
[2020-06-27] MEDS: CEFDINIR 300 MG CAP PO SCH ×2 (08:44→20:44)
--- NOTE | 2020-06-27 10:15 | Hospitalist Progress Note ---
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 Given that pt felt sx were worsening when she started keflex 500mg TID but much improved on ceftriaxone, change to cefdinir 300mg Q12 x 7 days total from 06/24 Cefdinir started 06/27 Wound cx done on the RLE in the past show MDR staph, enterobacter No cx on the LLE done prior Loose stools resolved with probiotic Add voltaren gel for ankle pain (2) Venous ulcer: Wound nurse consult (3) Hypertension: Continue lisinopril 10mg PO daily, metoprolol succinate 50mg PO daily (4) Atrial fibrillation: Continue metoprolol for rate control, Multaq for rhythm control. Currently with RRR. Continue usual warfarin dosing Monitor INR with abx use (5) Scalp lesion: Pt states hx of some sort of atypical scalp lesion findings in the past, but denies melanoma Has been putting off derm appt Advised to be seen ANISHA given concerning appearance on several lesions noted (6) Pacemaker: Noted, 09/2015 (7) DVT prophylaxis: Coumadin Admission and Anticipated Discharge Date Admission Date: June 26, 2020 Subjective Pt still feels that her LLE is tight around the ankle and is having difficulty ambulating due to this. She has pain due to the tightness. She does think that overall swelling continues to improve. Still with discoloration, but more to the chronic coloring that she usually has. Tolerating PO without issue. Pt denies fever, SOB, chest pain, abd pain, n/v. No diarrhea. Review of Systems Review of Systems: Pertinent positives and negatives reviewed in HPI--all others negative Physical Exam Constitutional: WD/WN, vitals as above Eyes: normal visual vicente by confrontation and + anicteric sclerae Neck: normal visual inspection and trachea midline Respiratory: normal respiratory effort, lungs clear to auscultation Cardiovascular: Rate/Rhythm: regular rate and regular rhythm Gastrointestinal (Abdomen): Inspection/Auscultation: abdomen not distended Percussion/Palpation: abdomen soft; abdomen nontender Musculoskeletal: Head/Neck/Chest: normocephalic and head atraumatic Skin: no rashes, warm and dry + lesion (multiple lesions noted on scalp), + erythema (regressing from marker lines, also noted for chronic discoloration) and + excoriations (clear yellow fluid drainage from multiple regions around an kle) Neurologic: awake; not confused Speech / Cognition: normal speech Psychiatric: A+Ox3, euthymic affect Results & Data Results & Data ([facility]) Vital Signs (Past 12 Hours) Vital Signs Temp Pulse Resp BP BP Pulse Ox 06/27/20 09:52 131/77 06/27/20 07:24 36.8 C 78 18 160/75 H 96 06/26/20 23:15 37.4 C 69 18 118/51 L 95 PG Care Time/CCT Total # of Minutes Spent Total Time Spent with Patient: Total time spent is greater than 50% in coordination of care (as documented) at patient's floor/unit and/or counseling patient: Coding Level of Care Code 21717 Subseq Hosp Care Lvl 3 Diagnoses Cellulitis of left leg L03.116 Venous ulcer I83.009; L97.909 Hypertension I10 Atrial fibrillation I48.91 Scalp lesion L98.9 Pacemaker Z95.0 DVT prophylaxis Z29.9
[2020-06-27] MEDS: DICLOFENAC SOD 1% GEL 100 GM TUBE EXT PRN (11:58)
[2020-06-27] MEDS: WARFARIN SOD 2 MG TAB PO SCH (16:47)
[2020-06-28] MEDS: ACETAMINOPHEN 325 MG TAB PO PRN ×4 (00:55→22:26)
[2020-06-28] MEDS: CEFDINIR 300 MG CAP PO SCH ×2 (08:00→20:49)
[2020-06-28] MEDS: CALCIUM CARBONATE 1250MG TAB PO SCH ×2 (08:00→20:49)
[2020-06-28] MEDS: MULTIVITAMIN TAB PO SCH (08:00)
[2020-06-28] MEDS: LACTOBACILLUS ACIDOPHILUS (FLORANEX) TAB PO SCH ×4 (08:00→20:49)
[2020-06-28] MEDS: METOPROLOL SUCC 50MG EXT REL TAB PO SCH (08:00)
[2020-06-28] MEDS: DRONEDARONE HCL 400 MG TAB PO SCH ×2 (08:00→20:49)
[2020-06-28] MEDS: lisinopriL 10 MG TAB PO SCH (08:00)
[2020-06-28] MEDS: CHOLECALCIFEROL 1,000 UNITS 25 MCG TAB PO SCH (08:00)
[2020-06-28 08:59] LABS: Basophils # (auto) 0.03 K/uL (0-0.2); Basophils % (auto) 0.4 %; Eosinophils # (auto) 0.23 K/uL (0-0.5); Eosinophils % (auto) 3.4 %; Hematocrit (blood only) 28.1 % (37-47); Hemoglobin 9.5 g/dL (12.0-16.0); Immature Granulocytes # (auto) 0.03 K/uL (0.00-0.02); Immature Granulocytes % (auto) 0.4 %; Lymphocytes # (auto) 0.94 K/uL (1.2-3.4); Lymphocytes % (auto) 13.8 %; Mean Corpuscular Hemoglobin 31.4 pg (25-34); Mean Corpuscular Hgb Conc 33.8 g/dL (32-36); Mean Corpuscular Volume 92.7 fL (80-100); Mean Platelet Volume 9.7 fL (7.4-10.4); Monocytes # (auto) 1.03 K/uL (0.11-0.59); Monocytes % (auto) 15.1 %; Neutrophils # (auto) 4.54 K/uL (1.4-6.5); Neutrophils % (auto) 66.9 %; Platelet Count 138 K/uL (130-400); RDW Coefficient of Variation 14.9 % (11.5-14.5); RDW Standard Deviation 50.4 fL (36.4-46.3); Red Blood Count 3.03 M/uL (4.2-5.4)
[2020-06-28 09:10] LABS: INR 2.4 (0.9-1.1); Prothrombin Time 23.7 Seconds (9.0-12.0)
[2020-06-28 09:32] LABS: BUN Creatinine Ratio 16.8 (10-20); Calcium 9.1 mg/dl (8.5-10.1); Creatinine Clr Calc Pharmacy 70.8 ml/min; Est GFR (African American) 93.6; Est GFR (Non-African American) 80.7; Potassium 3.8 mmol/L (3.5-5.1)
[2020-06-28 09:37] LABS: Folate (Folic Acid) > 24.00 ng/ml (>5.38); Vitamin B12 1045 pg/ml (211-911)
[2020-06-28] MEDS: DICLOFENAC SOD 1% GEL 100 GM TUBE EXT PRN (10:23)
[2020-06-28] MEDS ORDERED: VANCOMYCIN CONSULT ACTIVE PRN (13:04)
--- NOTE | 2020-06-28 13:05 | Hospitalist Progress Note ---
Date of Service June 28, 2020 Assessment & Plan (1) Cellulitis of left lend to venous ulcer, lateral aspect left distal leg. overall has improved per the patient but the distal portion near the foot/ankle is extending beyond the demarkation line in that region. will add MRSA coverage with vancomycin. cont omnicef; if any worsening overnight change back to rocephin. cont local wound care. (2) Venous ulcer: left distal leg - wound care nursing recs appreciated. consider lasix and mild compression (tubigrip). (3) Hyperthyroidism: no TSH since 2018 - check TSH am. (4) Hypertension: cont home meds (5) Pacemaker: noted (6) Chronic venous insufficiency: would benefit from chronic compression after infection is resolved (7) Atrial fibrillation: cont toprol xl cont dronedarone BID cont warfarin with daily INR Admission and Anticipated Discharge Date Admission Date: June 26, 2020 Subjective patient c/o mild left ankle pain overall feeling better than in comparison to admission mild erythema persists over LLE no diarrhea - had had such but now resolved no new complaints Review of Systems Constitutional: no fever and no chills Respiratory: no cough and no dyspnea Cardiovascular: no chest pain Gastrointestinal: no abdominal pain Physical Exam Constitutional: well developed and well nourished; no acute distress and no altered mental status ENMT: external ear and nose normal, oropharynx normal Respiratory: normal respiratory effort, lungs clear to auscultation Cardiovascular: Rate/Rhythm: regular rate and + irregularly irregular Heart Sounds: normal S1 and normal S2; no murmur Vessels: posterior tibial pulses present and dorsalis pedis pulses present; no JVD Extremities: + edema (1-2+ LLE; none on right ) Gastrointestinal (Abdomen): normal bowel sounds, soft, nontender, no hepatospl enomegaly Skin: severe venous stasis changes LLE with dry skin from foot to knee; hyperpigmentation; mild warm erythema extending from below the left knee down to just below ankle; the erythema now extends modestly beyond the demarkation line near the ankle; generalized edema about the ankle/foot. venous stasis ulcer lateral malleolar region. Psychiatric: A+Ox3, euthymic affect Results & Data Results & Data ([facility]) Vital Signs (Past 12 Hours) Vital Signs Temp Pulse Resp BP Pulse Ox 06/28/20 08:32 37.2 C 70 18 136/58 L 97 Laboratory Results Laboratory Results - last 24 hr 06/28/20 06/28/20 06/28/20 08:46 08:46 08:46 WBC 6.80 RBC 3.03 L Hgb 9.5 L Hct 28.1 L MCV 92.7 MCH 31.4 MCHC 33.8 RDW Std Deviation 50.4 H RDW Coeff of Caterina 14.9 H Plt Count 138 MPV 9.7 Immature Gran % (Auto) 0.4 Neut % (Auto) 66.9 Lymph % (Auto) 13.8 [place] % (Auto) 15.1 Eos % (Auto) 3.4 Baso % (Auto) 0.4 Neut # (Auto) 4.54 Lymph # (Auto) 0.94 L [place] # (Auto) 1.03 H Eos # (Auto) 0.23 Baso # (Auto) 0.03 Immature Gran # (Auto) 0.03 H PT 23.7 H INR 2.4 H Sodium 138 Potassium 3.8 Chloride 107 Carbon Dioxide 25 Anion Gap 6.0 BUN 11 Creatinine 0.67 Est Cr Clr Drug Dosing 70.8 Est GFR ( Amer) 93.6 Est GFR (Non-Af Amer) 80.7 BUN/Creatinine Ratio 16.8 Glucose 115 H Calcium 9.1 Vitamin B12 Folate 06/28/20 08:46 WBC RBC Hgb Hct MCV MCH MCHC RDW Std Deviation RDW Coeff of Caterina Plt Count MPV Immature Gran % (Auto) Neut % (Auto) Lymph % (Auto) [place] % (Auto) Eos % (Auto) Baso % (Auto) Neut # (Auto) Lymph # (Auto) [place] # (Auto) Eos # (Auto) Baso # (Auto) Immature Gran # (Auto) PT INR Sodium Potassium Chloride Carbon Dioxide Anion Gap BUN Creatinine Est Cr Clr Drug Dosing Est GFR ( Amer) Est GFR (Non-Af Amer) BUN/Creatinine Ratio Glucose Calcium Vitamin B12 1045 H Folate > 24.00 PG Care Time/CCT Total # of Minutes Spent Total Time Spent with Patient: Total time spent is greater than 50% in coordination of care (as documented) at patient's floor/unit and/or counseling patient: Coding Level of Care Code 86578 Subseq Hosp Care Lvl 2 Diagnoses Cellulitis of left leg L03.116 Venous ulcer I83.009; L97.909 Hyperthyroidism E05.90 Hypertension I10 Hypertension type: essential hypertension Pacemaker Z95.0 Chronic venous insufficiency I87.2 Atrial fibrillation I48.91 Atrial fibrillation type: unspecified (1) Hypertension Hypertension type: essential hypertension Qualified Code(s): I10 - Essential (primary) hypertension (2) Atrial fibrillation Atrial fibrillation type: unspecified Qualified Code(s): I48.91 - Unspecified atrial fibrillation
[2020-06-28] MEDS ORDERED: VANCOMYCIN HCL 2,250 MG in SODIUM CHLORIDE 0.9% 500 ML IV ONE (13:30)
--- NOTE | 2020-06-28 14:44 | Pharmacy Report ---
Pharmacy Abx Initial Consult - Date of Service June 28, 2020 - Pharmacy Dosing Scope Date of Consult: 06/28/20 Consultation requested by: Dr. Meléndez Pharmacy is consulted to initiate vancomycin IV dosing therapy, order appropriate labs and adjust drug dose/frequency. - Subjective The patient is a 85 year old F admitted on 06/26/20 11:53. - Objective Height: 5 ft 7 in Weight: 87 kg Vital Signs (Past 12hrs): Vital Signs Temp Pulse Resp BP Pulse Ox 06/28/20 08:32 37.2 C 70 18 136/58 L 97 Lab Results (24hrs): Laboratory Tests (24 Hours) 06/28/20 06/28/20 08:46 08:46 WBC 6.80 Neut # (Auto) 4.54 Creatinine 0.67 Est Cr Clr Drug Dosing 70.8 Micro Results: 06/24/20 Unknown Urine Culture - Final Urine,Clean Catch Three types of organisms present, all low counts probable skin sara. No further identifications or sensitivities to follow. - Assessment & Plan Assessment 85 year old F ordered empiric vancomycin for treatment of left leg cellulitis. Patient previously receiving ceftriaxone 2 g IV q24h, which was changed to cefdinir 300 mg PO BID yesterday. Multiple cultures available from [id number] of the right lower extremity (growing S. aureus and enterobacter cloacae). SCr has improved significantly since 06/24 (1.28 -> 0.85 -> 0.67 mg/dL), leukocytosis has improved as well (11 -> 7 -> 6.8K). Patient has been afebrile for duration of admission. Only available culture from this admission is a urine culture from growing likely skin sara. MRSA nasal swab ordered and pending. Plan Vancomycin IV * Estimated PK Parameters: Vd 0.6 L/kg, Bud 0.0625 hr-1, t1/2 11 hr * Loading dose: 2250 mg (26 mg/kg) * Maintenance dose: 1250 mg IV (14 mg/kg) every 14 hours * Goal trough level for cellulitis : 10 to 20 mcg/mL * Trough level ordered for 06/30/20 Cefdinir PO * 300 mg PO BID - appropriate Pharmacy will continue to follow and will adjust dose/frequency as necessary. Thank you.
[2020-06-28] MEDS: WARFARIN SOD 1 MG TAB PO SCH (15:43)
[2020-06-29] MEDS: DICLOFENAC SOD 1% GEL 100 GM TUBE EXT PRN ×3 (00:12→15:22)
[2020-06-29] MEDS: VANCOMYCIN HCL 1,250 MG in SODIUM CHLORIDE 0.9% 250 ML IV SCH ×2 (04:01→18:09)
[2020-06-29 06:22] LABS: INR 2.5 (0.9-1.1); Prothrombin Time 24.9 Seconds (9.0-12.0)
[2020-06-29 06:53] LABS: BUN Creatinine Ratio 17.4 (10-20); Calcium 8.3 mg/dl (8.5-10.1); Creatinine Clr Calc Pharmacy 77.8 ml/min; Est GFR (African American) 96.5; Est GFR (Non-African American) 83.2; Potassium 3.7 mmol/L (3.5-5.1)
[2020-06-29] MEDS: LACTOBACILLUS ACIDOPHILUS (FLORANEX) TAB PO SCH ×4 (09:19→20:40)
[2020-06-29] MEDS: CALCIUM CARBONATE 1250MG TAB PO SCH ×2 (09:20→20:41)
[2020-06-29] MEDS: lisinopriL 10 MG TAB PO SCH (09:20)
[2020-06-29] MEDS: METOPROLOL SUCC 50MG EXT REL TAB PO SCH (09:20)
[2020-06-29] MEDS: CEFDINIR 300 MG CAP PO SCH (09:20)
[2020-06-29] MEDS: MULTIVITAMIN TAB PO SCH (09:20)
[2020-06-29] MEDS: DRONEDARONE HCL 400 MG TAB PO SCH ×2 (09:20→20:42)
[2020-06-29] MEDS: CHOLECALCIFEROL 1,000 UNITS 25 MCG TAB PO SCH (09:20)
[2020-06-29 14:15] LABS: C Reactive Protein 16.9 mg/dl (0-0.29); Uric Acid 4.1 mg/dl (2.6-7.2)
--- NOTE | 2020-06-29 14:19 | XRay Report ---
XR ankle LT min 3V routine CLINICAL HISTORY: severe left medial ankle pain; eval CPPD, etc COMPARISON: Left ankle radiographs and CT of the left lower leg August 31, 2012. FINDINGS: Soft tissue calcifications within the left lower leg are incidentally noted. There is mode rate ankle and midfoot soft tissue swelling. No acute fracture is noted. There is no suspicious osseo us lesion. Talar dome is intact. There is extensive posterior and plantar calcaneal spurring. There i s mild osteoarthritis of the tibiotalar joint. IMPRESSION: 1. No acute fracture or dislocation within the left ankle. 2. Mild tibiotalar joint osteoarthritis. 3. Left ankle and hindfoot soft tissue swelling. ACT 112: Negative or not required by law. Electronically signed by: Coleman Gonzalez M.D. 06/29/2020 2:18 PM
[2020-06-29] MEDS: WARFARIN SOD 2 MG TAB PO SCH (15:20)
[2020-06-29] MEDS: ACETAMINOPHEN 325 MG TAB PO PRN (15:21)
[2020-06-29] MEDS ORDERED: KETOROLAC TROMETHAMINE 15 MG/ML VIAL IV ONE (15:22)
--- NOTE | 2020-06-29 17:22 | CT Scan Report ---
CT ankle LT wo con HISTORY: 85 years-old Female severe pain, cellulitis L ankle; eval joint etc acute severe left ankle pain with reported cellulitis COMPARISON: Left ankle radiographs of same day TECHNIQUE: Multiple axial CT images of the left ankle were obtained without the use of IV contrast. A dose lowering technique was used consistent with the principals of JESSIE. FINDINGS: Demineralized appearance of the bones limits evaluation for subtle acute nondisplaced fractures. Mild to moderate tibiotalar and subtalar osteoarthritis. Large enthesophyte of the calcaneus. Additional mild to moderate osteoarthritis is noted involving the imaged mid foot. No acute fracture, dislocatio n, osteochondral defect or osseous erosion. No intra-articular loose body. Moderate skin thickening with diffuse subcutaneous edema. Arterial calcifications. Moderate muscular atrophy. Tendons and ligaments are not well evaluated by CT technique. Moderate thickening of the dis keara Achilles tendon is suggestive of tendinosis. Thickening of the plantar fascia with adjacent calci fications suggest chronic plantar fasciitis. No drainable fluid collection. IMPRESSION: 1. Osteoarthritis as above without acute fracture, dislocation, osteochondral defect or intra-articul ar loose body. 2. Moderate diffuse subcutaneous edema and skin thickening is nonspecific. Differential consideration s would include cellulitis, venous stasis or lymphedema. 3. No drainable fluid collection. 4. Moderate tendinosis of the Achilles tendon with evidence of chronic plantar fasciitis. ACT 112: Negative or not required by law. The above report was generated using voice recognition software. It may contain grammatical, syntax o r spelling errors. Electronically signed by: He Meza M.D. 06/29/2020 5:20 PM
[2020-06-29] MEDS: CEFEPIME 2,000 MG in SYRINGE 7.5 ML IV SCH (18:09)
[2020-06-29] MEDS: ACETAMINOPHEN 500 MG TAB PO SCH (20:41)
--- NOTE | 2020-06-29 21:07 | Hospitalist Progress Note ---
Date of Service June 29, 2020 Assessment & Plan (1) Left ankle pain: the pt's main complaint is that of the L ankle, medial aspect. x-rays obtained -- no obvious effusion, CPPD changes, or bony changes. achilles tendonosis seen. uric acid level 4. sed rate and crp markedly elevated. elected to obtain left ankle CT. this did NOT show osteomyelitis, fracture, joint effusion, abscess, or any deeper infection. infection limited to skin and soft tissues only. pain could simply be from the cellulitis itself. cannot rule out inflammatory arthropathy (gout, etc) of ankle but less likely. will broaden IV abx. give toradol IV x [address] on tylenol 1gm TID for pain. follow. (2) Cellulitis of left lend to venous ulcer, lateral aspect left distal leg, in the setting of severe venous stasis. overall the top-most portion of the cellulitis is improved but the distal leg and ankle are still quite inflamed. day #2 of vanco for MRSA coverage. will stop omnicef and change to cefepime to add more gram neg coverage including pseudomonas. cont local wound care. (3) Venous ulcer: left distal leg - wound care nursing recs appreciated. consider lasix and mild compression (tubigrip). (4) Hyperthyroidism: TSH wnl today on no meds at this time (5) Hypertension: cont home meds (6) Pacemaker: noted (7) Chronic venous insufficiency: would benefit from chronic compression after infection is resolved (8) Atrial fibrillation: cont toprol xl cont dronedarone BID cont warfarin with daily INR INR therapeutic today (9) DVT prophylaxis: coumadin left message for daughter, Isabela, today on voicemail cont PT/OT Admission and Anticipated Discharge Date Admission Date: June 26, 2020 Subjective patient reports that her ambulation is limited due to left ankle pain. has mild pain with resting in bed but it gets much worse with weight bearing. hurts on medial aspect of left ankle the most. no calf pain. eating well. no new complaints. denies h/o gout or pseudogout. Review of Systems Constitutional: no chills and no fatigue Respiratory: no dyspnea Cardiovascular: no chest pain Gastrointestinal: no diarrhea/loose stools Physical Exam Constitutional: well developed and well nourished; no acute distress and no altered mental status ENMT: external ear and nose normal, oropharynx normal Respiratory: normal respiratory effort, lungs clear to auscultation Cardiovascular: Rate/Rhythm: regular rate and + irregularly irregular Heart Sounds: normal S1 and normal S2; no murmur Vessels: posterior tibial pulses present and dorsalis pedis pulses present; no JVD Extremities: + edema (1+ LLE jimenez, 2+ left ankle; none on right ) Gastrointestinal (Abdomen): normal bowel sounds, soft, nontender, no hepatosplenomegaly Skin: warm erythema much improved starting at superior most portion of jimenez and extending about 2/[address] down the jimenez. Above the ankle and over the ankle itself she has more significant erythema with warmth and swelling. There is severe venous stasis changes of the jimenez and also new blistering over the medial aspect of the distal jimenez - new from yesterday. the venous ulcer on the lateral aspect of distal leg is stable and not draining. left ankle, medial aspect, continues to have tenderness to minimal palpation. the erythema still extends BEYOND the distal most demarkation line extending onto dorsum of proximal foot. cap refill brisk , <2 sec Psychiatric: A+Ox3, euthymic affect Results & Data Results & Data ([facility]) Vital Signs (Past 12 Hours) Vital Signs Temp Pulse Resp BP Pulse Ox 06/29/20 14:54 37.5 C 73 17 137/79 96 Laboratory Results Laboratory Results - last 24 hr 06/29/20 06/29/20 06/29/20 05:01 05:04 05:04 ESR > 90 H PT 24.9 H INR 2.5 H Sodium 140 Potassium 3.7 Chloride 109 H Carbon Dioxide 24 Anion Gap 7.0 BUN 11 Creatinine 0.61 Est Cr Clr Drug Dosing 77.8 Est GFR ( Amer) 96.5 Est GFR (Non-Af Amer) 83.2 BUN/Creatinine Ratio 17.4 Glucose 92 Uric Acid Calcium 8.3 L C-Reactive Protein TSH 06/29/20 06/29/20 05:04 13:37 ESR PT INR Sodium Potassium Chloride Carbon Dioxide Anion Gap BUN Creatinine Est Cr Clr Drug Dosing Est GFR ( Amer) Est GFR (Non-Af Amer) BUN/Creatinine Ratio Glucose Uric Acid 4.1 Calcium C-Reactive Protein 16.90 H TSH 0.725 PG Care Time/CCT Total # of Minutes Spent Total Time Spent with Patient: Total time spent is greater than 50% in coordination of care (as documented) at patient's floor/unit and/or counseling patient: Coding Level of Care Code 85352 Subseq Hosp Care Lvl 3 Diagnoses Left ankle pain M25.572 Chronicity: acute Cellulitis of left leg L03.116 Venous ulcer I83.009; L97.909 Hyperthyroidism E05.90 Hypertension I10 Hypertension type: essential hypertension Pacemaker Z95.0 Chronic venous insufficiency I87.2 Atrial fibrillation I48.91 Atrial fibrillation type: unspecified DVT prophylaxis Z29.9 (1) Hypertension Hypertension type: essential hypertension Qualified Code(s): I10 - Essential (primary) hypertension (2) Atrial fibrillation Atrial fibrillation type: unspecified Qualified Code(s): I48.91 - Unspecified atrial fibrillation (3) Left ankle pain Chronicity: acute Qualified Code(s): M25.572 - Pain in left ankle and joints of left foot
[2020-06-30] MEDS: CEFEPIME 2,000 MG in SYRINGE 7.5 ML IV SCH ×3 (02:59→17:36)
[2020-06-30] MEDS ORDERED: VANCOMYCIN TROUGH ONE (07:30)
[2020-06-30 07:54] LABS: INR 2.3 (0.9-1.1); Prothrombin Time 23.6 Seconds (9.0-12.0)
[2020-06-30 08:17] LABS: BUN Creatinine Ratio 19.9 (10-20); Calcium 9.2 mg/dl (8.5-10.1); Creatinine Clr Calc Pharmacy 59.3 ml/min; Est GFR (African American) 78.5; Est GFR (Non-African American) 67.7
[2020-06-30] MEDS: MULTIVITAMIN TAB PO SCH (08:55)
[2020-06-30] MEDS: ACETAMINOPHEN 500 MG TAB PO SCH ×3 (08:55→21:57)
[2020-06-30] MEDS: lisinopriL 10 MG TAB PO SCH (08:55)
[2020-06-30] MEDS: CHOLECALCIFEROL 1,000 UNITS 25 MCG TAB PO SCH (08:55)
[2020-06-30] MEDS: METOPROLOL SUCC 50MG EXT REL TAB PO SCH (08:55)
[2020-06-30] MEDS: LACTOBACILLUS ACIDOPHILUS (FLORANEX) TAB PO SCH ×4 (08:56→21:57)
[2020-06-30] MEDS: CALCIUM CARBONATE 1250MG TAB PO SCH ×2 (08:56→21:56)
[2020-06-30] MEDS: DRONEDARONE HCL 400 MG TAB PO SCH ×2 (08:56→21:57)
[2020-06-30] MEDS: VANCOMYCIN HCL 1,250 MG in SODIUM CHLORIDE 0.9% 250 ML IV SCH ×2 (08:56→21:58)
[2020-06-30] MEDS ORDERED: FUROSEMIDE 20 MG TAB PO ONE (09:03)
--- NOTE | 2020-06-30 10:17 | Pharmacy Report ---
Pharmacy Abx Dose Short Note - Date of Service June 30, 2020 - Assessment & Plan Assessment 85 year old F receiving Vancomycin for treatment of left lower extremity cellulitis * Day #3 of antimicrobial therapy * Afebrile since admission. No leukocytosis. * Previously receiving ceftriaxone which was transitioned to cefdinir on 06/28. Therapy was escalated to cefepime on the evening of 06/29. * Urine culture from this admission grew skin sara and MRSA nasal swab was negative. Previous culture data from [id number] shows a history of E. cloacae and MSSA. * Renal function has worsened slightly today with SCr increasing from 0.61 to 0.80 mg/dL * Therapy was escalated secondary to worsening of cellulitis and pt's complaint of left ankle pain. Left ankle XR and CT showed skin and soft tissue swelling only. ESR and CRP were markedly elevated yesterday. Plan Vancomycin * Trough level of 14.5 mcg/mL is therapeutic (given cellulitis and no history of MRSA - if pt worsens, may need to target higher trough) * Continue dose of 1250 mg IV every 14 hours * Goal trough level: ~ 15 mcg/mL (given cellulitis and no history of MRSA - if pt worsens, may need to target higher trough) * Trough level ordered for 07/02/2020 @ 1530 Pharmacy will continue to follow and will adjust dose/frequency as necessary. Thank you.
[2020-06-30] MEDS ORDERED: KETOROLAC TROMETHAMINE 15 MG/ML VIAL IV ONE (12:40)
[2020-06-30] MEDS: WARFARIN SOD 1 MG TAB PO SCH (15:10)
--- NOTE | 2020-06-30 20:53 | Hospitalist Progress Note ---
Date of Service June 30, 2020 Assessment & Plan (1) Left ankle pain: medial malleolus. x-rays obtained -- no obvious effusion, CPPD changes, or bony changes. CT obtained - no joint fluid, no osteo, no fracture -- cellulitis only. achilles tendonosis seen. uric acid level 4. sed rate and crp markedly elevated. pain could simply be from the cellulitis itself. cannot rule out inflammatory arthropathy (gout, etc) of ankle but less likely. either way pain and swelling much improved today with toradol x 1 yesterday, scheduled tylenol TID, and ongoing IV abx. will give toradol 10mg IV again today. (2) Cellulitis of left lend to venous ulcer, lateral aspect left distal leg, in the setting of severe venous stasis. MUCH IMPROVED TODAY. day #3 of vanco for MRSA coverage. day #2 of cefepime (added for more gram neg coverage including pseudomonas - was not improving on rocephin/omnicef). cont local wound care. I think applying compression at this point will hasten recovery. Spoke with wound care - to apply 1 layer tubigrip stocking. (3) Venous ulcer: left distal leg - wound care nursing recs appreciated. lasix 20mg x 1 given today; mild compression (tubigrip) to be started today. (4) Hyperthyroidism: TSH wnl on no meds at this time (5) Hypertension: cont home meds (6) Pacemaker: noted (7) Chronic venous insufficiency: would benefit from chronic compression stockings defer to wound care center after discharge (8) Atrial fibrillation: cont toprol xl cont dronedarone BID cont warfarin with daily INR INR again therapeutic today (9) DVT prophylaxis: coumadin left message for daughter, Isabela - 06/29 cont PT/OT home this weekend? Admission and Anticipated Discharge Date Admission Date: June 26, 2020 Subjective patient's left ankle feels much better today. can weight-bear and ambulate much more comfortably today. she feels good overall. denies diarrhea. eating decently. no dyspnea. Review of Systems Constitutional: no fever and no chills Respiratory: no cough and no dyspnea Cardiovascular: no chest pain Gastrointestinal: no abdominal pain Physical Exam Constitutional: well developed and well nourished; no acute distress and no altered mental status ENMT: external ear and nose normal, oropharynx normal Respiratory: normal respiratory effort, lungs clear to auscultation Cardiovascular: Rate/Rhythm: regular rate and + irregularly irregular Heart Sounds: normal S1 and normal S2; no murmur Vessels: posterior tibial pulses present and dorsalis pedis pulses present; no JVD Extremities: + edema (none on right; trace left jimenez; 1+ ankle ) Gastrointestinal (Abdomen): normal bowel sounds, soft, nontender, no hepatosplenomegaly Musculoskeletal: left ankle - much less swelling today especially medially; much less tenderness to palpation over medial malleolus today Skin: left leg: erythema of left ankle much improved today; erythema is receding from the demarkation line over proximal foot; erythema is less intensely red today around the ankle; this region is NOT tender to palpation like yesterday; severe hyperpigmentation and stasis changes from tibial plateau area to the ankle; the previous erythema and warmth from cellulitis is markedly improved over the jimenez; she has numerous areas of blistering with serous fluid - especially medially - on the jimenez Psychiatric: A+Ox3, euthymic affect Results & Data Results & Data ([facility]) Vital Signs (Past 12 Hours) Vital Signs Temp Pulse Resp BP Pulse Ox 06/30/20 15:00 36.6 C 65 17 116/64 97 Laboratory Results Laboratory Results - last 24 hr 06/30/20 06/30/20 06/30/20 07:32 07:32 07:32 PT 23.6 H INR 2.3 H Sodium 140 Potassium 4.0 Chloride 107 Carbon Dioxide 26 Anion Gap 8.0 BUN 16 Creatinine 0.80 Est Cr Clr Drug Dosing 59.3 Est GFR ( Amer) 78.5 Est GFR (Non-Af Amer) 67.7 BUN/Creatinine Ratio 19.9 Glucose 99 Calcium 9.2 Vancomycin Trough 14.5 PG Care Time/CCT Total # of Minutes Spent Total Time Spent with Patient: Total time spent is greater than 50% in coordination of care (as documented) at patient's floor/unit and/or counseling patient: Coding Level of Care Code 53553 Subseq Hosp Care Lvl 3 Diagnoses Left ankle pain M25.572 Chronicity: acute Cellulitis of left leg L03.116 Venous ulcer I83.009; L97.909 Hyperthyroidism E05.90 Hypertension I10 Hypertension type: essential hypertension Pacemaker Z95.0 Chronic venous insufficiency I87.2 Atrial fibrillation I48.91 Atrial fibrillation type: unspecified DVT prophylaxis Z29.9 (1) Atrial fibrillation Atrial fibrillation type: unspecified Qualified Code(s): I48.91 - Unspecified atrial fibrillation (2) Left ankle pain Chronicity: acute Qualified Code(s): M25.572 - Pain in left ankle and joints of left foot (3) Hypertension Hypertension type: essential hypertension Qualified Code(s): I10 - Essential (primary) hypertension
[2020-06-30] MEDS: SIMETHICONE 80 MG CHEW PO PRN (22:50)
[2020-07-01] MEDS: CEFEPIME 2,000 MG in SYRINGE 7.5 ML IV SCH ×3 (02:26→18:51)
[2020-07-01 06:26] LABS: INR 2.5 (0.9-1.1); Prothrombin Time 25.1 Seconds (9.0-12.0)
[2020-07-01 06:44] LABS: Calcium 8.8 mg/dl (8.5-10.1); Creatinine Clr Calc Pharmacy 60.8 ml/min; Est GFR (African American) 80.9; Est GFR (Non-African American) 69.8; Potassium 3.7 mmol/L (3.5-5.1)
[2020-07-01] MEDS: ACETAMINOPHEN 500 MG TAB PO SCH ×3 (07:37→21:05)
[2020-07-01] MEDS: LACTOBACILLUS ACIDOPHILUS (FLORANEX) TAB PO SCH ×4 (08:51→21:03)
[2020-07-01] MEDS: CALCIUM CARBONATE 1250MG TAB PO SCH ×2 (08:51→21:05)
[2020-07-01] MEDS: CHOLECALCIFEROL 1,000 UNITS 25 MCG TAB PO SCH (08:51)
[2020-07-01] MEDS: METOPROLOL SUCC 50MG EXT REL TAB PO SCH (08:51)
[2020-07-01] MEDS: lisinopriL 10 MG TAB PO SCH (08:51)
[2020-07-01] MEDS: MULTIVITAMIN TAB PO SCH (08:51)
[2020-07-01] MEDS: KETOROLAC TROMETHAMINE 15 MG/ML VIAL IV PRN (08:52)
[2020-07-01] MEDS: DRONEDARONE HCL 400 MG TAB PO SCH ×2 (08:52→21:04)
[2020-07-01] MEDS: VANCOMYCIN HCL 1,250 MG in SODIUM CHLORIDE 0.9% 250 ML IV SCH (12:52)
[2020-07-01] MEDS: DICLOFENAC SOD 1% GEL 100 GM TUBE EXT PRN ×3 (12:55→23:41)
--- NOTE | 2020-07-01 14:09 | Hospitalist Progress Note ---
Date of Service July 01, 2020 Assessment & Plan (1) Cellulitis of left lend to venous ulcer, lateral aspect left distal leg, in the setting of severe venous stasis. - Waxing and waning course. Initially improved on just ceftriaxone, then prior provider felt it was worsening. - Presently on vanc/cefepime - Will consider switch to doxycycline/ciprofloxacin to try to cover MRSA & Psuedomonas - Continue local wound care both inpatient and outpatient. (2) Left ankle pain: Medial malleolus. CT ankle obtained on 06/29 showed no obvious effusion, CPPD changes, or bony changes. - Achilles tendonosis seen. (3) Venous ulcer: Left distal leg - wound care nursing recs appreciated. - Mild compression (tubigrip) started on 06/30; definitely improving the swelling; however, patient has tough time tolerating them. (4) Hyperthyroidism: TSH wnl. - On no meds at this time (5) Hypertension: BP is 150/70 today. - Continue home meds (6) Pacemaker: Noted. (7) Atrial fibrillation: Permenant. - Cont Toprol XL, dronedarone BID - Continue warfarin with daily INR (8) DVT prophylaxis: On warfarin Admission and Anticipated Discharge Date Admission Date: June 26, 2020 Subjective Doing better today. Left leg is much less sore with the compression wrap off. Reports no fevers/chills, chest pain, shortness of breath, abdominal pain, nausea, or vomiting. Physical Exam Constitutional: WD/WN, vitals as above Eyes: EOM intact bilaterally; no conjunctival abnormality ENMT: external ear and nose normal, oropharynx normal Neck: trachea midline, no thyromegaly normal visual inspection Respiratory: normal respiratory effort, lungs clear to auscultation no respiratory distress Cardiovascular: RRR, no murmur, no edema Gastrointestinal (Abdomen): Inspection/Auscultation: abdomen normal to inspec tion; abdomen not distended Musculoskeletal: no cyanosis or clubbing, extremities motor strength 5/5 Skin: + skin hypertrophy (Bilateral, but blisters on the left leg open.) Neurologic: moves all extremities and awake Psychiatric: Orientation: alert, oriented to person and cooperative Results & Data Results & Data ([facility]) Vital Signs (Past 12 Hours) Vital Signs Temp Pulse Resp BP Pulse Ox 07/01/20 07:41 36.8 C 75 18 151/72 H 95 PG Care Time/CCT Total # of Minutes Spent Total Time Spent with Patient: Total time spent is greater than 50% in coordination of care (as documented) at patient's floor/unit and/or counseling patient: Coding Level of Care Code 74366 Subseq Hosp Care Lvl 2 Diagnoses Cellulitis of left leg L03.116 Left ankle pain M25.572 Chronicity: acute Venous ulcer I83.009; L97.909 Hyperthyroidism E05.90 Hypertension I10 Hypertension type: essential hypertension Pacemaker Z95.0 Atrial fibrillation I48.91 Atrial fibrillation type: unspecified DVT prophylaxis Z29.9 (1) Left ankle pain Chronicity: acute Qualified Code(s): M25.572 - Pain in left ankle and joints of left foot (2) Hypertension Hypertension type: essential hypertension Qualified Code(s): I10 - Essential (primary) hypertension (3) Atrial fibrillation Atrial fibrillation type: unspecified Qualified Code(s): I48.91 - Unspecified atrial fibrillation
[2020-07-01] MEDS: WARFARIN SOD 2 MG TAB PO SCH (15:29)
[2020-07-02] MEDS: VANCOMYCIN HCL 1,250 MG in SODIUM CHLORIDE 0.9% 250 ML IV SCH ×2 (02:38→16:59)
[2020-07-02] MEDS: CEFEPIME 2,000 MG in SYRINGE 7.5 ML IV SCH ×3 (02:38→18:04)
[2020-07-02 07:06] LABS: Hematocrit (blood only) 30.3 % (37-47); Hemoglobin 9.6 g/dL (12.0-16.0); Mean Corpuscular Hemoglobin 29.4 pg (25-34); Mean Corpuscular Hgb Conc 31.7 g/dL (32-36); Mean Corpuscular Volume 92.9 fL (80-100); Mean Platelet Volume 9.5 fL (7.4-10.4); Platelet Count 228 K/uL (130-400); RDW Coefficient of Variation 14.6 % (11.5-14.5); RDW Standard Deviation 49.8 fL (36.4-46.3); Red Blood Count 3.26 M/uL (4.2-5.4); White Blood Count 9.04 K/uL (4.8-10.8)
[2020-07-02 07:28] LABS: INR 2.6 (0.9-1.1); Prothrombin Time 25.8 Seconds (9.0-12.0)
[2020-07-02 07:39] LABS: BUN Creatinine Ratio 18.6 (10-20); Calcium 9.2 mg/dl (8.5-10.1); Creatinine Clr Calc Pharmacy 58.6 ml/min; Est GFR (African American) 77.3; Est GFR (Non-African American) 66.7; Magnesium 2.1 mg/dl (1.8-2.4); Phosphorus 2.9 mg/dl (2.5-4.9); Potassium 3.8 mmol/L (3.5-5.1)
[2020-07-02] MEDS: lisinopriL 10 MG TAB PO SCH (08:34)
[2020-07-02] MEDS: DRONEDARONE HCL 400 MG TAB PO SCH ×2 (08:34→21:00)
[2020-07-02] MEDS: METOPROLOL SUCC 50MG EXT REL TAB PO SCH (08:34)
[2020-07-02] MEDS: LACTOBACILLUS ACIDOPHILUS (FLORANEX) TAB PO SCH ×4 (08:34→20:57)
[2020-07-02] MEDS: CHOLECALCIFEROL 1,000 UNITS 25 MCG TAB PO SCH (08:34)
[2020-07-02] MEDS: CALCIUM CARBONATE 1250MG TAB PO SCH ×2 (08:35→20:58)
[2020-07-02] MEDS: ACETAMINOPHEN 500 MG TAB PO SCH ×3 (08:35→20:58)
[2020-07-02] MEDS: MULTIVITAMIN TAB PO SCH (08:35)
[2020-07-02] MEDS: DICLOFENAC SOD 1% GEL 100 GM TUBE EXT PRN ×2 (11:36→21:03)
[2020-07-02] MEDS: KETOROLAC TROMETHAMINE 15 MG/ML VIAL IV PRN (11:42)
[2020-07-02] MEDS ORDERED: VANCOMYCIN TROUGH ONE (15:30)
[2020-07-02] MEDS: WARFARIN SOD 2 MG TAB PO SCH (16:17)
--- NOTE | 2020-07-02 16:22 | Hospitalist Progress Note ---
Date of Service July 02, 2020 Assessment & Plan (1) Cellulitis of left lend to venous ulcer, lateral aspect left distal leg, in the setting of severe venous stasis. - Waxing and waning course. Initially improved on just ceftriaxone, then prior provider felt it was worsening. - Presently on vanc/cefepime - Will consider switch to doxycycline/ciprofloxacin to try to cover MRSA & Psuedomonas. - Continue local wound care both inpatient and outpatient. - For left knee effusion, will get a few things done to ensure no issues. Will get Dopplers of left leg and also have orthopedics see her. (2) Left ankle pain: Medial malleolus. CT ankle obtained on 06/29 showed no obvious effusion, CPPD changes, or bony changes. - Achilles tendonosis seen. (3) Venous ulcer: Left distal leg - wound care nursing recs appreciated. - Mild compression (Tubigrip) started on 06/30; definitely improving the swelling; however, patient has tough time tolerating them. (4) Hyperthyroidism: TSH wnl. - On no meds at this time (5) Hypertension: BP is 150/70 today. - Continue home meds (6) Pacemaker: Noted. (7) Atrial fibrillation: Permenant. - Cont Toprol XL, dronedarone BID - Continue warfarin with daily INR (8) DVT prophylaxis: On warfarin Admission and Anticipated Discharge Date Admission Date: June 26, 2020 Subjective Feeling stable today. No major issues. Reports no fevers/chills, chest pain, shortness of breath, abdominal pain, nausea, or vomiting. Physical Exam Constitutional: WD/WN, vitals as above Eyes: EOM intact bilaterally; no conjunctival abnormality ENMT: external ear and nose normal, oropharynx normal Neck: trachea midline, no thyromegaly normal visual inspection Respiratory: normal respiratory effort, lungs clear to auscultation no respiratory distress Cardiovascular: RRR, no murmur, no edema Gastrointestinal (Abdomen): Inspection/Auscultation: abdomen normal to inspection; abdomen not distended Musculoskeletal: no cyanosis or clubbing, extremities motor strength 5/5 Skin: no rashes, warm and dry + skin hypertrophy (Bilateral, but blisters on the left leg open.) Neurologic: moves all extremities and awake Psychiatric: Orientation: alert, oriented to person and cooperative Results & Data Results & Data ([facility]) Vital Signs (Past 12 Hours) Vital Signs Temp Pulse Resp BP Pulse Ox 07/02/20 15:18 36.7 C 65 24 146/70 H 96 07/02/20 06:48 36.7 C 84 20 166/65 H 96 PG Care Time/CCT Total # of Minutes Spent Total Time Spent with Patient: Total time spent is greater than 50% in coordination of care (as documented) at patient's floor/unit and/or counseling patient: Coding Level of Care Code 88416 Subseq Hosp Care Lvl 2 Diagnoses Cellulitis of left leg L03.116 Left ankle pain M25.572 Chronicity: acute Venous ulcer I83.009; L97.909 Hyperthyroidism E05.90 Hypertension I10 Hypertension type: essential hypertension Pacemaker Z95.0 Atrial fibrillation I48.91 Atrial fibrillation type: unspecified DVT prophylaxis Z29.9 (1) Left ankle pain Chronicity: acute Qualified Code(s): M25.572 - Pain in left ankle and joints of left foot (2) Hypertension Hypertension type: essential hypertension Qualified Code(s): I10 - Essential (primary) hypertension (3) Atrial fibrillation Atrial fibrillation type: unspecified Qualified Code(s): I48.91 - Unspecified atrial fibrillation
--- NOTE | 2020-07-02 18:59 | Pharmacy Report ---
Pharmacy Abx Dose Short Note - Date of Service July 02, 2020 - Assessment & Plan Assessment 85 year old F receiving Vancomycin 1250 mg IV q14h for treatment of Cellulitis of L leg. Day #5 of antimicrobial therapy. Trough level obtained today to confirm adequate dosing. Laboratory Tests 07/02/20 15:29 Vancomycin Trough 17.1 Plan Vancomycin * Trough level of 17.1 mcg/mL is therapeutic. * Continue dose of Vancomycin 1250 mg IV every 14 hours. * Goal trough level for Cellulitis: ~15 mcg/mL * May re-check trough in around 5 days if patient continues on Vancomycin. Pharmacy will continue to follow and will adjust dose/frequency as necessary. Thank you.
--- NOTE | 2020-07-02 19:51 | Consultation Report ---
DATE OF CONSULTATION: 07/02/2020 Radha is known to me from outpatient treatment of her arthritis. She was admitted to the hospital for left lower extremity venous stasis ulcer. I was consulted to see her about left knee swelling. She notes that her knee does not hurt her at rest. She has increased stiffness in the knee over the past several days. She has been in the hospital since last week.. She is afebrile. White count normal. She is on cefepime and vancomycin. She is also on Coumadin. Her past medical history and medications are noted on her chart. She is able to stand with minimal difficulty. She has a pretty extensive swelling in the subcutaneous tissues more so to the back and sides of the thigh and knee. Previously, her wrap had ended just below her knee. She can do a straight leg raise and bend her knee from about 0-60 degrees. There is 1+ dorsalis pedis pulse. She has decreased dorsiflexion range of motion but intact strength and intact plantar flexion strength. I do not detect any significant fluid within her knee. I think what she has is a lot of subcutaneous swelling. There is no erythema around the front of her knee and her knee itself is not significantly tender. She is able to extend the knee against gravity. There are no current radiographs; however, previous radiographs demonstrated arthritis. I do not think that she has a knee effusion that would need to be aspirated and/or analyzed. I think that she has a lot of subcutaneous swelling related to her venous stasis disease, which has made her knee stiff and tight. This may have been brought on by the wrap ending just below her knee causing the fluid accumulation around the knee itself. She has told me that there were thoughts of switching her to an above-knee wrap, which I think is worth a try. Continue to elevate and continue to treatment for her venous stasis disease. We can follow up with her as an outpatient for her knee as necessary. At this time, I do not think there is any need for further intervention for her left knee. Thank you for the consultation. IAN
[2020-07-03] MEDS: CEFEPIME 2,000 MG in SYRINGE 7.5 ML IV SCH (02:17)
[2020-07-03] MEDS: ACETAMINOPHEN 325 MG TAB PO PRN (03:36)
[2020-07-03] MEDS: VANCOMYCIN HCL 1,250 MG in SODIUM CHLORIDE 0.9% 250 ML IV SCH (05:27)
[2020-07-03 06:13] LABS: Hematocrit (blood only) 26.1 % (37-47); Hemoglobin 8.9 g/dL (12.0-16.0); Mean Corpuscular Hemoglobin 31.9 pg (25-34); Mean Corpuscular Hgb Conc 34.1 g/dL (32-36); Mean Corpuscular Volume 93.5 fL (80-100); Mean Platelet Volume 9.7 fL (7.4-10.4); Platelet Count 212 K/uL (130-400); RDW Coefficient of Variation 14.6 % (11.5-14.5); Red Blood Count 2.79 M/uL (4.2-5.4); White Blood Count 8.61 K/uL (4.8-10.8)
[2020-07-03 06:26] LABS: INR 3.1 (0.9-1.1); Prothrombin Time 30.8 Seconds (9.0-12.0)
[2020-07-03 06:45] LABS: BUN Creatinine Ratio 20.5 (10-20); Creatinine Clr Calc Pharmacy 55.2 ml/min; Est GFR (African American) 71.9; Magnesium 2.1 mg/dl (1.8-2.4)
[2020-07-03] MEDS: CHOLECALCIFEROL 1,000 UNITS 25 MCG TAB PO SCH (09:08)
[2020-07-03] MEDS: ACETAMINOPHEN 500 MG TAB PO SCH ×2 (09:09→14:57)
[2020-07-03] MEDS: lisinopriL 10 MG TAB PO SCH (09:09)
[2020-07-03] MEDS: LACTOBACILLUS ACIDOPHILUS (FLORANEX) TAB PO SCH ×2 (09:10→13:42)
[2020-07-03] MEDS: MULTIVITAMIN TAB PO SCH (09:10)
[2020-07-03] MEDS: METOPROLOL SUCC 50MG EXT REL TAB PO SCH (09:10)
[2020-07-03] MEDS: DRONEDARONE HCL 400 MG TAB PO SCH (09:10)
[2020-07-03] MEDS: CALCIUM CARBONATE 1250MG TAB PO SCH (09:10)
[2020-07-03] MEDS ORDERED: CIPROFLOXACIN 500 MG TAB PO STA (11:31)
[2020-07-03] MEDS ORDERED: SULFAMETHOXAZOLE/TRIMETHOPRIM DS 800/160MG TAB PO ONE (11:31)
[2020-07-03] MEDS ORDERED: CEFDINIR 300 MG CAP PO SCH (12:00)
[2020-07-03] MEDS ORDERED: CEFEPIME 2,000 MG in SYRINGE 7.5 ML IV SCH (14:00)
[2020-07-03] MEDS: DICLOFENAC SOD 1% GEL 100 GM TUBE EXT PRN (14:58)
--- NOTE | 2020-07-03 18:42 | Discharge Summary ---
Date of Service July 03, 2020 Admission HPI Per Admitting Provider Radha Floyd is an 85 MWF 1mg, 2mg the rest of the time. Principal Diagnosis Cellulitis of the left leg Discharge Exam Constitutional WD/WN, vitals as above Eyes EOM intact bilaterally; no conjunctival abnormality ENMT external ear and nose normal, oropharynx normal Neck trachea midline, no thyromegaly normal visual inspection Respiratory normal respiratory effort, lungs clear to auscultation no respiratory distress Cardiovascular RRR, no murmur, no edema Gastrointestinal (Abdomen) Inspection/Auscultation: abdomen normal to inspection; abdomen not distended Musculoskeletal no cyanosis or clubbing, extremities motor strength 5/5 Skin no rashes, warm and dry + skin hypertrophy (Bilateral, but blisters on the left leg open.) Neurologic moves all extremities and awake Psychiatric Orientation: alert, oriented to person and cooperative Discharge Data Allergies Allergy/AdvReac Type Severity Reaction Status Date / Time Sulfa (Sulfonamide Allergy Severe rash Verified 06/24/20 08:47 Antibiotics) latex Allergy Unknown UNKNOWN Verified 06/24/20 08:47 cephalexin Allergy Diarrhea Unverified 06/24/20 08:48 Consultations 06/24/20 10:29 ED Decision to Admit Stat 07/02/20 16:22 Consult Orthopedic Surgery Routine Ordered Studies 06/29/20 15:22 CT ankle LT wo con Urgent Hospital Course (1) Cellulitis of left lend to venous ulcer, lateral aspect left distal leg, in the setting of severe venous stasis. - Waxing and waning course. Initially improved on just ceftriaxone, then prior provider felt it was worsening. - Presently on vanc/cefepime - Switched to doxycycline/cefdinir x 1 week each to cover most likely pathogens and in keeping with her prior cultures. Would have liked to use Bactrim for MRSA coverage, but she has allergy. Cipro contraindicated for QTc with her dronedarone, but she has no hx of Pseudomonas, so possibly less important. - Continue local wound care both inpatient and outpatient. - For left knee effusion, seen by Dr. Aguirre who didn't feel it was infected. Will follow with [facility] as outpatient. Anticoagulated with therapeutic INR, so DVT unlikely. (2) Left ankle pain: Medial malleolus. CT ankle obtained on 06/29 showed no obvious effusion, CPPD changes, or bony changes. - Achilles tendonosis seen. Mild off/on pain. Conservative care. Outpatient follow up. (3) Venous ulcer: Left distal leg - wound care nursing recs appreciated. - Mild compression (Tubigrip) started on 06/30; definitely improving the swelling; however, patient has tough time tolerating them. Was doing better by discharge. (4) Hyperthyroidism: TSH wnl. - On no meds at this time (5) Hypertension: BP is 150/70 today. - Continue home meds (6) Pacemaker: Noted. (7) Atrial fibrillation: Permenant. - Cont Toprol XL, dronedarone BID - Continue warfarin with daily INR -> INR was 3.1 today. Skipped today's dose. Will contact her AC providers tomorrow for INR check. (8) DVT prophylaxis: On warfarin Total Time Total Time Spent Total Time Spent (In Minutes): 35 Discharge Plan Discharge Items Patient Disposition: Home - Home Health Services Reason For Visit: CELLULITIS Discharge Diagnosis: Cellulitis Activity: Resume your previous activity Non-emergency contact: Primary Care Provider Call non-emergency contact if: your symptoms worsen and your temperature is above 101 Follow-up/Referrals: Kelvin Vee DO [Primary Care Provider] - Diet: Heart Healthy Addtl Attending Provider Instructions: Ms. Floyd, You were admitted to the hospital with leg cellulitis. We have treated you with a variety of medications, and the cellulitis has improved. We are sending you out on a pair of antibiotics to try to keep the leg healing appropriately. Please [facility] with the next scheduled appointment. We are sending you out on two antibiotics. You will take 1 tablet of each, 2 times per day for the next week, then stop. Because antibiotics can interact with your warfarin, please contact your Anticoagulation Clinic providers tomorrow to set up an INR check when they would like you to next. Pending Studies at Discharge: No Stand-Alone Forms: My [facility] [employer], Smoking Cessation Medications and DC Order Prescriptions: New cefdinir 300 mg Capsule 300 mg PO BID Qty: 14 RF: 0 doxycycline hyclate 100 mg tablet 100 mg PO BID 7 Days Qty: 14 RF: 0 Continued calcium carbonate 500 mg calcium (1,250 mg) tablet 500 mg PO BID RF: 0 cholecalciferol (vitamin D3) 1,000 unit capsule 3,000 units PO DAILY RF: 0 dronedarone [Multaq] 400 mg tablet 400 mg PO BID RF: 0 metoprolol succinate [Toprol XL] 50 mg tablet extended release 24 hr 50 mg PO DAILY RF: 0 multivitamin tablet 1 tab PO DAILY RF: 0 nitroglycerin [Nitrostat] 0.4 mg tablet, sublingual 0.4 mg SL Q5M PRN (Reason: Chest Pain) RF: 0 warfarin [Coumadin] 1 mg tablet 1 mg PO UD RF: 0 hydrochlorothiazide 12.5 mg tablet 12.5 mg PO DAILY Qty: 90 RF: 1 lisinopril [Prinivil] 10 mg tablet 10 mg PO DAILY Qty: 90 RF: 1 biotin 10 mg tablet 10 mg PO DAILY RF: 0 warfarin [Jantoven] 1 mg tablet 2 mg PO UD RF: 0 Discharge Orders: Discharge Order (Routine); Ordered 07/03/20 Ordered By: Erwin Tuttle/Other Patient Handouts: Discharge Instructions for Cellulitis Admission Data Admit Date/Time: 06/26/20 11:53 Attending Provider: Erwin Vee Admit Provider: Dandy Nava Primary Care Provider: Kelvin Vee Other Providers: [facility],Home Healthcare ; Erwin Vee ; Misha Aguirre Other Interventions: Discharge Summary Assessment (RN) Last Done: 07/03/20 15:36 Coding Level of Care Code D/C Day Management >30 mins Diagnoses Cellulitis of left leg L03.116 Left ankle pain M25.572 Chronicity: acute Venous ulcer I83.009; L97.909 Hyperthyroidism E05.90 Hypertension I10 Hypertension type: essential hypertension Pacemaker Z95.0 Atrial fibrillation I48.91 Atrial fibrillation type: unspecified DVT prophylaxis Z29.9
== END 2020-07-03 17:00 | disposition home health service (06) | DRG 300 ==
LOC: ED 08:03 → 3N 08:03 → SUATTDRO 10:33 → 3N 11:20 → SUATTDRO 06-26 11:53

== ENCOUNTER 2022-08-31 12:32 | Inpatient (IN) ==
--- NOTE | 2022-08-31 13:23 | Emergency Department Note ---
Impression & Plan Respiratory failure with hypoxia, COVID-19 ED Provider Note NAME: JOSE RAFAEL MEJIA AGE: 87 SEX: F : 1935 ARRIVES VIA: Walk-In INFORMANT: Patient ED PROVIDER(S): Anjel Gresham DO CHIEF COMPLAINT: SOB HPI: Patient is an 87-year-old female with a past medical history of cellulitis, venous stasis, osteomyelitis who presents to the ER for shortness of breath and a cough. Symptoms have been present for the past 2 weeks. She notes her shortness of breath has been getting worse. Is worse with up moving around. Denies any chest pain or belly pain. No nausea, vomiting, or diarrhea. She notes that she has 2 open wounds on her bilateral shins. She also notes that she has wounds on her buttocks is. She has follow-up with her PCP in regards to these wounds. She has recently lost her sense of taste and smell. ROS: See above HPI for pertinent positives & negatives. A total of 10 systems reviewed and were otherwise negative. PAST MEDICAL HISTORY:See Below PAST SURGICAL HISTORY:See Below FAMILY HISTORY:See Below SOCIAL HISTORY:See Below HOME MEDICATIONS:See Below ALLERGIES:See Below VITALS:See Below PHYSICAL EXAMINATION: GENERAL: Sitting up in bed, alert, slightly ill-appearing, persistent cough EYE EXAM: normal conjunctiva. OROPHARYNX: Dry mucous membrane NECK: supple, no nuchal rigidity, no adenopathy, non-tender LUNGS: Diminished bilaterally with wheezing. normal chest wall mechanics HEART: no murmurs, S1 normal and S2 normal ABDOMEN: abdomen soft, non-tender, normo-active bowel sounds, no masses, no rebound or guarding. UPPER EXTREMITIES: upper extremities are grossly normal. LOWER EXTREMITIES: No pitting edema. Ulcers on bilateral anterior shins without surrounding cellulitis. Calves are equal bilateral. NEURO EXAM: Normal sensorium, cranial nerves II-XII grossly intact, normal speech, no gross weakness of arms, no gross weakness of legs. MEDICAL DECISION MAKING: Patient is a 87-year-old female who presents ER for the above-stated complaint. Patient notes she is short of breath. IV was established and blood work was obtained. Labs show no significant leukocytosis or anemia. INR was therapeutic at 2.4. BMP along with LFTs bilirubin was unremarkable. Troponin was negative. Lipase was normal. COVID was positive. Chest x-ray with bilateral infiltrates. With walking pulse ox dropped to 73%. At rest patient still hypoxic in the mid 80s. Patient was given Decadron and remained on nasal cannula. Updated bedside and discussed with Dr. Culp for further evaluation Triage Nursing notes reviewed. Limited review of prior medical records performed Vital Signs: reviewed and remarkable for tachy Differential diagnosis: Differential diagnoses includes but is not limited to pneumonia, bronchitis, COPD/Asthma exacerbation, pneumothorax, pulmonary embolism, congestive heart failure, acute coronary syndrome ER treatment provided: See below Diagnostics interpreted by me: ECG: Sinus rhythm rate 78 Normal axis T wave inversion in the inferior leads QTC 435 Cardiac Monitoring: An order was placed for continuous cardiac monitoring. The monitor shows a rate of 80 with sinus rhythm. Laboratory studies: As stated above and show below. Imaging studies: Portable AP upright 1 view the chest shows bilateral infiltrate Consultation(s): Discussed with [facility] as described above Procedures: none Critical Care: I have personally spent 33 minutes of critical care time in the direct management of this patient. This includes bedside care, interpretation of diagnostic studies, and testing, discussion with consultants, patient, and family members, and other required patient management activities. This 33 minutes is in excess of all separately billable procedures. Past Med/Surg History Medical History Arthritis Atrial fibrillation Atrial fibrillation, chronic Benign hypertension Cellulitis of left lower extremity without foot Cellulitis of leg, except foot Cellulitis of right lower extremity Chronic venous insufficiency Edema of left lower extremity Heart disease 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 Hypertension Hyperthyroidism Multinodular goiter Osteomyelitis of toe of right foot Osteopenia Pacemaker (~09/2015) Venous ulcer Vitamin D deficiency Surgical History History of arthroscopy of knee History of cataract surgery History of tonsillectomy and adenoidectomy S/P Mohs surgery for basal cell carcinoma Family History Mother Cardiac disorder Father Hypertension Denies family history of Ovarian cancer Prostate cancer Myocardial infarction Breast cancer Colorectal cancer Social History Smoking Status: Never smoker Second Hand Exposure: No; Hx Alcohol Use: No Hx Substance Use: No Preferred Language: Norwegian Communication Ability: Effective Visual Impairment: No Limitations Hearing Ability: Normal Access Clinician Required: No Beliefs That Will Affect Care: None marital status: / Current Living Situation: Alone current occupational status: employed current occupation: [employer] Feels Safe at Home: Yes Childhood Exposure to Second-Hand Smoke: No Dental Care, Regularly: Yes Physical Activity Frequency: Does not Exercise Seatbelt Use: always Sunscreen Use: Yes Assistive Devices: Walker Allergies Allergies Allergy/AdvReac Type Severity Reaction Status Date / Time Sulfa (Sulfonamide Allergy Severe rash Verified 08/21/22 10:07 Antibiotics) latex Allergy Unknown UNKNOWN Verified 08/21/22 10:07 cephalexin Allergy Diarrhea Verified 08/21/22 10:07 Home Meds Home Medications Medication Instructions Recorded Confirmed calcium carbonate 500 mg calcium 500 mg PO BID 06/19/18 08/21/22 (1,250 mg) tablet cholecalciferol (vitamin D3) 25 3,000 units PO DAILY 06/19/18 08/21/22 mcg (1,000 unit) capsule dronedarone 400 mg tablet (Multaq) 400 mg PO BID 06/19/18 08/21/22 metoprolol succinate 50 mg 50 mg PO DAILY 06/19/18 08/21/22 tablet,extended release 24 hr (Toprol XL) multivitamin 1 tab PO DAILY 06/19/18 08/21/22 nitroglycerin 0.4 mg sublingual 0.4 mg sublingual Q5M PRN Chest 06/19/18 08/21/22 tablet (Nitrostat) Pain biotin 10 mg tablet 10 mg PO DAILY 04/05/19 08/21/22 warfarin 1 mg tablet (Jantoven) 2 mg PO UD 06/24/20 08/21/22 warfarin 1 mg tablet (Coumadin) 1 mg PO UD 07/10/20 08/21/22 Previous Rx's Medication Instructions Recorded ammonium lactate 5 % lotion 1 applic topical DAILY PRN dry 07/24/20 (Lac-Hydrin Five) skin #226 grams silver sulfadiazine 1 % topical 1 applic topical BID #50 grams 08/07/22 cream (Silvadene) hydrochlorothiazide 12.5 mg tablet See Rx Instructions .Route 08/14/22 .COMPLEX #90 tabs lisinopril 10 mg tablet See Rx Instructions .Route 08/14/22 .COMPLEX #90 tabs Results & Data (ED) Vital Signs Vital Signs - 24 hr 08/31/22 12:35 08/31/22 12:55 08/31/22 13:14 Temperature 36.6 C Temperature Source Temporal Artery Scan Pulse Rate 91 H Pulse Rate [Apical] 74 Pulse Rate [Recovery] 100 H Pulse Rhythm Pulse Rhythm [Apical] Regular Respiratory Rate 20 24 Respiratory Rate [Recovery] 24 Respiratory Effort / Characteristics Non-Labored Non-Labored Spontaneous Respiratory Depth Normal Normal Respiratory Pattern Regular Blood Pressure 159/68 H Blood Pressure [Right Arm] 164/73 H Blood Pressure Mean 98 Blood Pressure Mean [Right Arm] 103 Blood Pressure Position [Right Arm] Semi-fowlers Pulse Oximetry 87 L 97 Pulse Oximetry [Recovery] 75 L Oxygen Delivery Method Room Air Nasal Cannula Room Air Oxygen Flow Rate 4 Sepsis Recent Fever Within 48 Hours No Sepsis New/Unexplained Change in Mental Status N/A Sepsis Action Taken by Nursing No Action Required 08/31/22 13:15 Temperature Temperature Source Pulse Rate 73 Pulse Rate [Apical] Pulse Rate [Recovery] Pulse Rhythm Regular Pulse Rhythm [Apical] Respiratory Rate 20 Respiratory Rate [Recovery] Respiratory Effort / Characteristics Respiratory Depth Respiratory Pattern Blood Pressure Blood Pressure [Right Arm] Blood Pressure Mean Blood Pressure Mean [Right Arm] Blood Pressure Position [Right Arm] Pulse Oximetry 96 Pulse Oximetry [Recovery] Oxygen Delivery Method Nasal Cannula Oxygen Flow Rate 3 Sepsis Recent Fever Within 48 Hours Sepsis New/Unexplained Change in Mental Status Sepsis Action Taken by Nursing Laboratory Data Result diagrams: 08/31/22 13:26 08/31/22 13:26 Lab Results 08/31/22 08/31/22 08/31/22 Range/Units 13:15 13:26 13:26 WBC 4.82 (4.8-10.8) K/ul RBC 3.98 (3.93-5.22) M/uL Hgb 11.8 L (12.0-16.0) g/dl Hct 36.5 (34.1-44.9) % MCV 91.7 (80.0-100.0) fL MCH 29.6 (25.0-34.0) pg MCHC 32.3 (32.0-36.0) g/dL RDW Std Deviation 45.5 (36.4-46.3) fL RDW Coeff of Caterina 13.4 (11.5-14.5) % Plt Count 147 (130-400) K/uL MPV 10.0 (9.4-12.3) fL Immature Gran % (Auto) 0.6 % Neut % (Auto) 69.5 % Lymph % (Auto) 15.4 % [place] % (Auto) 13.7 % Eos % (Auto) 0.4 % Baso % (Auto) 0.4 % Neut # (Auto) 3.35 (1.4-6.5) K/uL Lymph # (Auto) 0.74 L (1.2-3.4) K/uL [place] # (Auto) 0.66 (0.24-0.82) K/uL Eos # (Auto) 0.02 (0-0.50) K/uL Baso # (Auto) 0.02 (0-0.2) K/uL Immature Gran # (Auto) 0.03 H (0.00-0.02) K/uL ESR 127 H (0-30) mm/hr PT (9.0-12.0) Seconds INR (0.9-1.1) Sodium 137 (136-145) mmol/L Potassium 3.7 (3.5-5.1) mmol/L Chloride 100 (98-107) mmol/L Carbon Dioxide 26 (21-32) mmol/L Anion Gap 11 (3-11) BUN 18 (6-23) mg/dl Creatinine 0.81 (0.6-1.2) mg/dl Est Cr Clr Drug Dosing 56.4 ml/min Est GFR ( Amer) 76.2 ml/min Est GFR (Non-Af Amer) 65.8 ml/min BUN/Creatinine Ratio 22.2 H (10-20) Glucose 127 H (70-99(Fasting)) mg/dl Calcium 8.7 (8.5-10.1) mg/dl Total Bilirubin 0.6 (0.2-1.0) mg/dl AST 19 (13-39) U/L ALT 13 (7-52) U/L Alkaline Phosphatase 62 (34-104) U/L Troponin I High Sens 9.0 (0-14) pg/ml C-Reactive Protein (0-0.5) mg/dl Total Protein 7.4 (6.0-8.3) gm/dl Albumin 3.6 (3.4-5.0) gm/dl Globulin 3.8 (2.5-4.0) gm/dl Albumin/Globulin Ratio 0.9 (0.9-2) Lipase 29 (11-82) U/L SARS-CoV-2 (PCR) (Negative) Influenza Type A (PCR) (Neg) Influenza Type B (PCR) (Neg) RSV (RT-PCR) (Neg) 08/31/22 08/31/22 08/31/22 Range/Units 13:26 13:26 13:39 WBC (4.8-10.8) K/ul RBC (3.93-5.22) M/uL Hgb (12.0-16.0) g/dl Hct (34.1-44.9) % MCV (80.0-100.0) fL MCH (25.0-34.0) pg MCHC (32.0-36.0) g/dL RDW Std Deviation (36.4-46.3) fL RDW Coeff of Caterina (11.5-14.5) % Plt Count (130-400) K/uL MPV (9.4-12.3) fL Immature Gran % (Auto) % Neut % (Auto) % Lymph % (Auto) % [place] % (Auto) % Eos % (Auto) % Baso % (Auto) % Neut # (Auto) (1.4-6.5) K/uL Lymph # (Auto) (1.2-3.4) K/uL [place] # (Auto) (0.24-0.82) K/uL Eos # (Auto) (0-0.50) K/uL Baso # (Auto) (0-0.2) K/uL Immature Gran # (Auto) (0.00-0.02) K/uL ESR (0-30) mm/hr PT 27.5 H (9.0-12.0) Seconds INR 2.7 H (0.9-1.1) Sodium (136-145) mmol/L Potassium (3.5-5.1) mmol/L Chloride (98-107) mmol/L Carbon Dioxide (21-32) mmol/L Anion Gap (3-11) BUN (6-23) mg/dl Creatinine (0.6-1.2) mg/dl Est Cr Clr Drug Dosing ml/min Est GFR ( Amer) ml/min Est GFR (Non-Af Amer) ml/min BUN/Creatinine Ratio (10-20) Glucose (70-99(Fasting)) mg/dl Calcium (8.5-10.1) mg/dl Total Bilirubin (0.2-1.0) mg/dl AST (13-39) U/L ALT (7-52) U/L Alkaline Phosphatase (34-104) U/L Troponin I High Sens (0-14) pg/ml C-Reactive Protein 15.92 H (0-0.5) mg/dl Total Protein (6.0-8.3) gm/dl Albumin (3.4-5.0) gm/dl Globulin (2.5-4.0) gm/dl Albumin/Globulin Ratio (0.9-2) Lipase (11-82) U/L SARS-CoV-2 (PCR) POSITIVE A* (Negative) Influenza Type A (PCR) Negative (Neg) Influenza Type B (PCR) Negative (Neg) RSV (RT-PCR) Negative (Neg) Administered Medications Discontinued Medications Levofloxacin/Dextrose (Levaquin/D5w) 750 mg in 150 mls @ 100 mls/hr IV NOW STA Stop: 08/31/22 15:24 Last Admin: 08/31/22 14:05 Dose: 100 mls/hr Documented By: NYDIA Dexamethasone 6 mg/ Syringe 1.5 mls @ 1 mls/min IV ONE ONE Stop: 08/31/22 14:46 Last Admin: 08/31/22 14:59 Dose: 1 mls/min Documented By: NYDIA Imaging Data Radiologist's Impression: Chest X-Ray 08/31/22 13:15 XR chest 1V portable HISTORY: Cough with atypical Chest Pain COMPARISON: Chest 02/06/2019. FINDINGS: No pneumothorax. No pleural effusions. Left-sided dual-chamber pacemaker. The heart is mildly enlarged. There are patchy bibasilar airspace opacities. No evidence for pulmonary edema. IMPRESSION: Interval development of patchy bibasilar airspace opacities consistent with a pneumonia. This may be secondary to a viral process. ACT 112: Negative or not required by law. Electronically signed by: Suman Balbuena M.D. 08/31/2022 1:37 PM Discharge Plan Visit Data Chief Complaint: Cough Stated Complaint: COUGH, SORES ON LEGS ED Provider: Anjel Gresham Discharge Problem: Respiratory failure with hypoxia, COVID-19 Forms Stand Alone Forms: My [facility] Prescriptions Prescriptions: No Action calcium carbonate 500 mg calcium (1,250 mg) tablet 500 mg PO BID cholecalciferol (vitamin D3) 1,000 unit capsule 3,000 units PO DAILY dronedarone [Multaq] 400 mg tablet 400 mg PO BID metoprolol succinate [Toprol XL] 50 mg tablet extended release 24 hr 50 mg PO DAILY multivitamin tablet 1 tab PO DAILY nitroglycerin [Nitrostat] 0.4 mg tablet, sublingual 0.4 mg SL Q5M PRN (Reason: Chest Pain) warfarin [Coumadin] 1 mg tablet 1 mg PO UD Label Comments: 1 mg PO ; Rx Instructions: PT TAKE Fri AND FRI Lac-Hydrin Five 5 % lotion 1 applic topical DAILY PRN (Reason: dry skin) Qty: 226 1RF hydrochlorothiazide 12.5 mg tablet See Rx Instructions .ROUTE .COMPLEX Qty: 90 3RF Dose Instruction: TAKE ONE TABLET BY MOUTH DAILY Rx Instructions: TAKE ONE TABLET BY MOUTH DAILY lisinopril 10 mg tablet See Rx Instructions .ROUTE .COMPLEX Qty: 90 3RF Dose Instruction: TAKE ONE TABLET BY MOUTH DAILY Rx Instructions: TAKE ONE TABLET BY MOUTH DAILY silver sulfadiazine [Silvadene] 1 % cream 1 applic topical BID Qty: 50 0RF Rx Instructions: apply a 1.5 mm thickness biotin 10 mg tablet 10 mg PO DAILY warfarin [Jantoven] 1 mg tablet 2 mg PO UD Rx Instructions: PT TAKE ON SAT AND SUN Referrals Referrals: Kelvin Vee DO [Primary Care Provider] -
--- NOTE | 2022-08-31 13:38 | XRay Report ---
XR chest 1V portable HISTORY: Cough with atypical Chest Pain COMPARISON: Chest 02/06/2019. FINDINGS: No pneumothorax. No pleural effusions. Left-sided dual-chamber pacemaker. The heart is mild ly enlarged. There are patchy bibasilar airspace opacities. No evidence for pulmonary edema. IMPRESSION: Interval development of patchy bibasilar airspace opacities consistent with a pneumonia. This may be secondary to a viral process. ACT 112: Negative or not required by law. Electronically signed by: Suman Balbuena M.D. 08/31/2022 1:37 PM
[2022-08-31 13:45] LABS: Basophils # (auto) 0.02 K/uL (0-0.2); Basophils % (auto) 0.4 %; Eosinophils # (auto) 0.02 K/uL (0-0.50); Eosinophils % (auto) 0.4 %; Hematocrit (blood only) 36.5 % (34.1-44.9); Hemoglobin 11.8 g/dl (12.0-16.0); Immature Granulocytes # (auto) 0.03 K/uL (0.00-0.02); Immature Granulocytes % (auto) 0.6 %; Lymphocytes # (auto) 0.74 K/uL (1.2-3.4); Lymphocytes % (auto) 15.4 %; Mean Corpuscular Hemoglobin 29.6 pg (25.0-34.0); Mean Corpuscular Hgb Conc 32.3 g/dL (32.0-36.0); Mean Corpuscular Volume 91.7 fL (80.0-100.0); Monocytes # (auto) 0.66 K/uL (0.24-0.82); Monocytes % (auto) 13.7 %; Neutrophils # (auto) 3.35 K/uL (1.4-6.5); Neutrophils % (auto) 69.5 %; Platelet Count 147 K/uL (130-400); RDW Coefficient of Variation 13.4 % (11.5-14.5); RDW Standard Deviation 45.5 fL (36.4-46.3); Red Blood Count 3.98 M/uL (3.93-5.22); White Blood Count 4.82 K/ul (4.8-10.8)
[2022-08-31] MEDS ORDERED: levoFLOXacin/D5W 750 MG/150 ML BAG IV STA (13:55)
[2022-08-31 14:07] LABS: Albumin Globulin Ratio 0.9 (0.9-2); Albumin Level 3.6 gm/dl (3.4-5.0); BUN Creatinine Ratio 22.2 (10-20); Bilirubin,Total 0.6 mg/dl (0.2-1.0); Calcium 8.7 mg/dl (8.5-10.1); Creatinine Clr Calc Pharmacy 56.4 ml/min; Est GFR (African American) 76.2 ml/min; Est GFR (Non-African American) 65.8 ml/min; Globulin 3.8 gm/dl (2.5-4.0); Potassium 3.7 mmol/L (3.5-5.1); Total Protein 7.4 gm/dl (6.0-8.3)
--- NOTE | 2022-08-31 14:09 | History & Physical Report ---
Date of Service August 31, 2022 Assessment & Plan (1) Pneumonia: Plan: - COVID-positive, CXR with bibasilar opacities, suspect COVID-pneumonia. - Did receive 1 dose of Levaquin in ED for atypical coverage. - As she is requiring oxygen, she does qualify for IV steroids. Since symptoms have been present for 2 weeks now, would not benefit for remdesivir. - Isolation precautions. - Supportive care. - ESR, CRP added onto labs. (2) Atrial fibrillation: Plan: - History of, NSR today. - Continue drain at her own, metoprolol, warfarin - Takes warfarin 1 mg , 2 mg all other days, . - INR pending. (3) Venous ulcer: Plan: - History of bilateral venous stasis, dorsalis pedis pulses strong bilaterally. - She does have 2 open wounds on her jimenez, has followed up with dermatology and wound care previously. Has been instructed to soak legs in Clorox/water mix daily for 30 minutes. - We will have wound care see her for this, as well as buttocks wound while she is here. (4) Hypertension: Plan: - Continue metoprolol, lisinopril, hydrochlorothiazide. (5) Pressure sore on buttocks: Plan: - Early stage, wound care consulted as above. - Reposition patient every 2 hours, offset pressure. (6) Pacemaker: Plan: - Pacemaker place s/p tachybradycardia syndrome. - Follows with [facility] cardiology. Plan - Admit to [facility] telemetry. - SCDs, continue warfarin. - Full code. History of Present Illness Chief Complaint: cough and SOB x 2 weeks Primary Care Provider: Kelvin Vee DO Radha Floyd is an 87-year-old female with past medical history significant for A. fib, hyperthyroidism, hypertension, tachybradycardia syndrome s/p pacemaker placement, CAD, osteoporosis, and venous stasis who presents today with URI symptoms. For 2 weeks she has had a cough sometimes productive of sputum and worsening shortness of breath with activities she could previously tolerate like walk around her home and daily chores. He has not had any fever chills or body aches. She did lose her taste and smell over the past 2 weeks, but has regained it back in the past day. He has not had any chest pain or palpitations. One of her children are sick, unknown if they are positive for COVID, she denies other known sick contacts. She is not vaccinated for COVID. Upon presentation to the ED, O2 saturations are above 90% at rest, however desat to 87% and below when walking around the room, now on 3 L NC. She is COVID- positive. Labs otherwise unrevealing, stable Hgb, no electrode abnormalities, renal function at baseline, without transaminitis, initial troponin checked, is 9.0. CXR shows patchy bibasilar airspace opacities consistent with a pneumonia, likely viral process. Allergies Allergy/AdvReac Type Severity Reaction Status Date / Time Sulfa (Sulfonamide Allergy Severe rash Verified 08/31/22 16:15 Antibiotics) latex Allergy Unknown UNKNOWN Verified 08/31/22 16:15 cephalexin Allergy Diarrhea Verified 08/31/22 16:15 Home Medications Medication Instructions Recorded Confirmed Type calcium carbonate 500 mg calcium 500 mg PO QAM 06/19/18 08/31/22 History (1,250 mg) tablet dronedarone 400 mg tablet (Multaq) 400 mg PO BID 06/19/18 08/31/22 History metoprolol succinate 50 mg 50 mg PO DAILY 06/19/18 08/31/22 History tablet,extended release 24 hr (Toprol XL) multivitamin 1 tab PO DAILY 06/19/18 08/31/22 History nitroglycerin 0.4 mg sublingual 0.4 mg sublingual Q5M PRN Chest 06/19/18 08/31/22 History tablet (Nitrostat) Pain biotin 10 mg tablet 10 mg PO DAILY 04/05/19 08/31/22 History warfarin 1 mg tablet (Jantoven) 2 mg PO UD 06/24/20 08/31/22 History warfarin 1 mg tablet (Coumadin) 1 mg PO UD 07/10/20 08/31/22 History ammonium lactate 5 % lotion 1 applic topical DAILY PRN dry 07/24/20 08/31/22 Rx (Lac-Hydrin Five) skin #226 grams silver sulfadiazine 1 % topical 1 applic topical BID #50 grams 08/07/22 08/31/22 Rx cream (Silvadene) acetaminophen 500 mg tablet 1,000 mg PO Q6H PRN Pain 08/31/22 08/31/22 History (Tylenol Extra Strength) cholecalciferol (vitamin D3) 125 125 mcg PO DAILY 08/31/22 08/31/22 History mcg (5,000 unit) tablet (Vitamin D3) hydrochlorothiazide 12.5 mg tablet 12.5 mg PO DAILY 08/31/22 08/31/22 History lisinopril 10 mg tablet 10 mg PO DAILY 08/31/22 08/31/22 History mupirocin 2 % topical ointment 1 applic topical DIRECTED 08/31/22 08/31/22 History Past Med/Surg History Medical History Arthritis Atrial fibrillation Atrial fibrillation, chronic Benign hypertension Cellulitis of left lower extremity without foot Cellulitis of leg, except foot Cellulitis of right lower extremity Chronic venous insufficiency Edema of left lower extremity Heart disease 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 Hypertension Hyperthyroidism Multinodular goiter Osteomyelitis of toe of right foot Osteopenia Pacemaker (~09/2015) Venous ulcer Vitamin D deficiency Surgical History History of arthroscopy of knee History of cataract surgery History of tonsillectomy and adenoidectomy S/P Mohs surgery for basal cell carcinoma Family History Mother Cardiac disorder Father Hypertension Denies family history of Ovarian cancer Prostate cancer Myocardial infarction Breast cancer Colorectal cancer Social History Smoking Status: Never smoker Second Hand Exposure: No; Hx Alcohol Use: No Hx Substance Use: No Preferred Language: Citizen Of [place] Communication Ability: Effective Visual Impairment: No Limitations Hearing Ability: Normal Director New Product Required: No Beliefs That Will Affect Care: None marital status: / Current Living Situation: Alone current occupational status: employed current occupation: [employer] Feels Safe at Home: Yes Childhood Exposure to Second-Hand Smoke: No Dental Care, Regularly: Yes Physical Activity Frequency: Does not Exercise Seatbelt Use: always Sunscreen Use: Yes Assistive Devices: Walker Review of Systems Review of Systems: Constitutional: No fever/chills, weakness, fatigue, myalgias, anorexia, night sweats Eyes: No diplopia, no worsening or blurred vision ENT: normal hearing, no trouble swallowing Respiratory: Progressive cough and shortness of breath x2 weeks Cardiovascular: No chest pain, tightness or palpitations Abdomen: No pain, nausea, vomiting, diarrhea or constipation : Denies dysuria, hematuria, increased urgency/frequency, urinary retention Musculoskeletal: No joint pain, calf pain, swelling Neurologic: No weakness, numbness/tingling, or balance problems Psychiatric: No anxiety or depression Skin: No rash or itch Physical Exam Physical Exam: General: awake, alert, no apparent distress Head: Normocephalic, atraumatic ENT: PERRL, EOMI, no pharyngeal exudate, mucous membranes moist Chest: Crackles heard at bilateral lung bases posteriorly, otherwise clear to auscultation, no adventitious breath sounds Cardiac: Regular rate and rhythm, no murmur, no JVD, normal peripheral pulses, good capillary refill Abdominal: NABS x 4 quadrants, soft, nontender to palpation, no rebound, guarding or tenderness Extremities: Normal inspection, no peripheral edema or erythema, calfs nontender to palpation Psych: Normal mood and affect Neuro: AAO x 3, strength intact bilaterally and rated 5/5, no motor deficits, speech is clear, no peripheral sensory deficits Skin: no rash or erythema Results & Data Results & Data ([facility]) Vital Signs (Past 12 Hours) Vital Signs Temp Pulse Pulse Pulse Resp Resp BP 08/31/22 13:15 73 20 08/31/22 13:14 100 H 24 08/31/22 12:55 74 24 08/31/22 12:35 36.6 C 91 H 20 159/68 H BP Pulse Ox Pulse Ox O2 Del Method O2 Flow Rate 08/31/22 13:15 96 Nasal Cannula 3 08/31/22 13:14 75 L Room Air 08/31/22 12:55 164/73 H 97 Nasal Cannula 4 08/31/22 12:35 87 L Room Air Laboratory Results Abnormal lab results 08/31/22 08/31/22 Range/Units 13:26 13:26 Hgb 11.8 L (12.0-16.0) g/dl Lymph # (Auto) 0.74 L (1.2-3.4) K/uL Immature Gran # (Auto) 0.03 H (0.00-0.02) K/uL BUN/Creatinine Ratio 22.2 H (10-20) Glucose 127 H (70-99(Fasting)) mg/dl Diagnostic Findings Chest X-Ray 08/31/22 13:15 XR chest 1V portable HISTORY: Cough with atypical Chest Pain COMPARISON: Chest 02/06/2019. FINDINGS: No pneumothorax. No pleural effusions. Left-sided dual-chamber pacemaker. The heart is mildly enlarged. There are patchy bibasilar airspace opacities. No evidence for pulmonary edema. IMPRESSION: Interval development of patchy bibasilar airspace opacities consistent with a pneumonia. This may be secondary to a viral process. ACT 112: Negative or not required by law. Electronically signed by: Suman Balbuena M.D. 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 Code Status & VTE Plan Code Status Full Code. Supervising Physician Co-Signing Physician Notes Patient seen and examined, chart reviewed, case discussed with Viktoria Amos PA-C and I agree with the assessment and plan as above except as otherwise noted Labs and images reviewed 87-year-old female with a past medical history of atrial fibrillation, pacemaker placement, hypothyroidism, osteomyelitis, chronic venous stasis who presents with shortness of breath and a cough over the prior 2 weeks and with progressive shortness of breath over that time. She does not have associated chest pain. Dyspnea is worse with exertion. Admitting EKG is NSR without ST segment changes, QTC 435, no T wave inversions. No leukocytosis, hemoglobin 11.8 with MCV of 91. Potassium 3.7, sodium 137. Creatinine is with normal baseline of less than 1, admitting creatinine 0.81. No transaminitis. CXR shows interval development of patchy bibasilar airspace opacity consistent with pneumonia. At bedside patient is no acute distress, he is on 3 L of oxygen and reports no home requirement. No fevers, chills, sweats, chest pain but had has a dry cough which started about 14 days ago. No abdominal pain. Does endorse a buttock pressure ulcer sore that she cannot see, and chronic jimenez venous stasis ulcers which are known to wound care but which she has not had follow-up for recently. Notes that she has chronic venous stasis and has had ablations before, and knows that is likely from bad circulation. On exam heart rate is irregularly irregular, breathing is unlabored. Dorsalis pedis pulses are intact and palpable bilaterally, somewhat delayed cap refill in the toes. Anterior stasis ulcers are present bilaterally Acute hypoxic respiratory failure 2/2 COVID-pneumonia: COVID-positive. Symptoms of approximately 2 weeks, CRP is elevated to 15.92. Received an empiric dose of Levaquin for atypical coverage, suspect symptoms are likely due to COVID. Patient is not vaccinated. Steroids started. Does not meet criteria for baricitinib at this time as is not on high flow oxygen. Does not meet criteria for remdesivir as is more than 10 days out from onset of symptoms. Continue management above. Lower extremity chronic venous stasis wounds: DP pulses are intact with somewhat sluggish cap refill 2-3 seconds. Anterior thighs with stasis wounds, wound care consulted. Patient also with buttock pressure ulcer. No surrounding warmth/erythema consistent with cellulitis PG Care Time/CCT Total # of Minutes Spent Total Time Spent with Patient: Total time spent is greater than 50% in coordination of care (as documented) at patient's floor/unit and/or counseling patient: Coding Level of Care Code 29861 Initial Inpt Care Lvl 3 Diagnoses Pneumonia J18.9 Atrial fibrillation I48.91 Atrial fibrillation type: unspecified Venous ulcer I83.009; L97.909 Hypertension I10 Hypertension type: essential hypertension Pressure sore on buttocks L89.309 Pacemaker Z95.0 (1) Atrial fibrillation Atrial fibrillation type: unspecified Qualified Code(s): I48.91 - Unspecified atrial fibrillation (2) Hypertension Hypertension type: essential hypertension Qualified Code(s): I10 - Essential (primary) hypertension
[2022-08-31 14:27] LABS: Influenza A virus by PCR Negative (Neg); Influenza B virus by PCR Negative (Neg); RSV by PCR Negative (Neg)
[2022-08-31 14:36] LABS: SARS CoV2 RNA(COVID-19)Cepheid POSITIVE (Negative)
[2022-08-31] MEDS ORDERED: dexAMETHasone 6 MG in SYRINGE 0 ML IV ONE (14:45)
[2022-08-31 15:28] LABS: INR 2.7 (0.9-1.1); Prothrombin Time 27.5 Seconds (9.0-12.0)
[2022-08-31] MEDS ORDERED: ONDANSETRON INJ 2 MG/ML 2 ML VIAL IV PRN (17:05)
[2022-08-31] MEDS ORDERED: AMMONIUM LACTATE 12% LOTION 225 GM BTL EXT PRN (17:05)
[2022-08-31] MEDS ORDERED: NITROGLYCERIN SL 0.4 MG/TAB TAB SL PRN (17:05)
[2022-08-31] MEDS ORDERED: WARFARIN SOD 1 MG TAB PO SCH (17:05)
[2022-08-31] MEDS ORDERED: POLYETHYLENE (MIRALAX) 17 GM PACK PO PRN (17:05)
[2022-08-31] MEDS ORDERED: ACETAMINOPHEN 325 MG TAB PO PRN (17:05)
[2022-08-31] MEDS ORDERED: ALUMINUM/MAGNESIUM SUSP 30 ML UDC PO PRN (17:05)
[2022-08-31] MEDS ORDERED: WARFARIN SOD 2 MG TAB PO SCH (18:00)
[2022-08-31] MEDS ORDERED: ALBUT/IPRATROP 3MG/0.5MG NEB 3 ML VIAL NEB PRN (20:01)
[2022-08-31] MEDS: WARFARIN SOD 2 MG TAB PO SCH (23:29)
[2022-08-31] MEDS: lisinopril 10 MG TAB PO SCH (23:31)
[2022-08-31] MEDS: hydroCHLOROthiazide 25 MG TAB PO SCH (23:31)
[2022-08-31] MEDS: CALCIUM CARBONATE 500 MG CHEWABLE TAB PO SCH (23:32)
[2022-08-31] MEDS: guaiFENesin 600 MG TABCR PO SCH (23:32)
[2022-08-31] MEDS: DRONEDARONE HCL 400 MG TAB PO SCH (23:33)
[2022-08-31] MEDS: SILVER SULFADIAZINE 1% CR 50 GM JAR TOP SCH (23:33)
[2022-09-01] MEDS: ALBUT/IPRATROP 3MG/0.5MG NEB 3 ML VIAL INH SCH ×2 (00:23→07:23)
[2022-09-01 06:36] LABS: Hematocrit (blood only) 34.4 % (34.1-44.9); Hemoglobin 11.4 g/dl (12.0-16.0); Mean Corpuscular Hemoglobin 29.9 pg (25.0-34.0); Mean Corpuscular Hgb Conc 33.1 g/dL (32.0-36.0); Mean Corpuscular Volume 90.3 fL (80.0-100.0); Mean Platelet Volume 9.8 fL (9.4-12.3); Platelet Count 144 K/uL (130-400); RDW Coefficient of Variation 13.2 % (11.5-14.5); RDW Standard Deviation 43.8 fL (36.4-46.3); Red Blood Count 3.81 M/uL (3.93-5.22); White Blood Count 1.83 K/ul (4.8-10.8)
[2022-09-01 07:02] LABS: Immature Granulocytes # (auto) 0.01 K/uL (0.00-0.02); Immature Granulocytes % (auto) 0.5 %; Lymphocytes % (auto) 21.9 %; Monocytes # (auto) 0.21 K/uL (0.24-0.82); Monocytes % (auto) 11.5 %; Neutrophils # (auto) 1.21 K/uL (1.4-6.5); Neutrophils % (auto) 66.1 %
[2022-09-01 07:36] LABS: BUN Creatinine Ratio 31.3 (10-20); C Reactive Protein 12.82 mg/dl (0-0.5); Calcium 8.7 mg/dl (8.5-10.1); Creatinine Clr Calc Pharmacy 69.9 ml/min; Est GFR (African American) 93.6 ml/min; Est GFR (Non-African American) 80.8 ml/min; Potassium 4.1 mmol/L (3.5-5.1)
[2022-09-01] MEDS: SILVER SULFADIAZINE 1% CR 50 GM JAR TOP SCH ×2 (08:00→21:13)
[2022-09-01] MEDS: METOPROLOL SUCC 50MG EXT REL TAB PO SCH (08:00)
[2022-09-01] MEDS: CHOLECALCIFEROL 1,000 UNITS 25 MCG TAB PO SCH (08:00)
[2022-09-01] MEDS: CALCIUM CARBONATE 500 MG CHEWABLE TAB PO SCH ×2 (08:01→21:13)
[2022-09-01] MEDS: DRONEDARONE HCL 400 MG TAB PO SCH ×2 (08:01→21:12)
[2022-09-01] MEDS: hydroCHLOROthiazide 25 MG TAB PO SCH (08:02)
[2022-09-01] MEDS: lisinopril 10 MG TAB PO SCH (08:02)
[2022-09-01] MEDS: guaiFENesin 600 MG TABCR PO SCH ×2 (08:03→21:13)
[2022-09-01] MEDS: dexAMETHasone 6 MG in SYRINGE 0 ML IV SCH (09:01)
--- NOTE | 2022-09-01 11:09 | Electrocardiogram Report ---
Test Reason : Blood Pressure : / mmHG Vent. 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
--- NOTE | 2022-09-01 13:03 | Hospitalist Progress Note ---
Date of Service September 01, 2022 Assessment & Plan (1) Pneumonia due to COVID-19 virus: Plan: 2+ weeks of COVID symptoms. Severe hypoxia at time of admission with documented sats in the 70s. Sats remain low 90s on 2 L NC O2. CXR with classic COVID pneumonia. No complicating acute CHF. Procal negative; doubt bacterial superinfection. Cont dexamethasone 6mg IV daily - day #2 today. Add incentive colt to her flutter valve. Cont mucinex. Side positioning discussed with patient. (2) Atrial fibrillation: Plan: Remains in NSR. Cont warfarin. Home regimen - warfarin 1 mg , 2 mg all other days, . INR daily. Cont dronedarone BID. (3) Venous ulcer: Plan: Venous insufficiency with b/l venous ulcers. Wound care consult placed. (4) Hypertension: Plan: Hold HCTZ. Cont IGOR Cont BB Controlled (5) Pressure sore on buttocks: Plan: Early stage, wound care consulted as above. Reposition patient every 2 hours, offset pressure. 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 Follows with [facility] cardiology. (7) Chronic venous insufficiency: (8) Hyperthyroidism: Plan: TSH 06/2022 wnl Not on meds for such (9) DVT prophylaxis: Plan: coumadin INR today at goal INR daily while here (10) Chronic renal failure, stage 3a: Plan: Creatinine stable today BMP am Plan PT, OT luis felipe requested daughter extensively updated at bedside Admission and Anticipated Discharge Date Admission Date: August 31, 2022 Subjective patient eating her lunch during the visit daughter at bedside visiting patient states "I feel much better than yesterday" still coughing still with NICHOLAS but no dyspnea at rest no chest pain or tightness continues with mild diarrhea but no N/V has been sick for 2+ weeks Review of Systems Review of Systems: gen - no fevers or chills, decent energy today cv - no orthopnea pulm - no wheezing; nurses report that with walking she will desat to low 80s GI - no pain Physical Exam Physical Exam: gen - looks good, NAD, no respiratory distress mouth - MMM neck - no JVD heart - RRR, s1 s2 lungs - diffuse crackles b/l extending 1/[address] up back, no wheeze, no increased work of breathing abd - soft NT ND BS+ ext - mild 1+ edema b/l, pulses 2+ b/l skin - dressings intact b/l shins (not removed - they were just placed in the last hour) psych - a/o x 3 Results & Data Results & Data ([facility]) Vital Signs (Past 12 Hours) Vital Signs Temp Pulse Pulse Resp BP Pulse Ox O2 Del Method 09/01/22 11:58 36.4 C L 66 14 123/68 92 Nasal Cannula 09/01/22 10:28 Nasal Cannula 09/01/22 07:58 36.2 C L 84 16 121/62 92 Nasal Cannula 09/01/22 07:32 66 09/01/22 07:23 79 18 91 Nasal Cannula 09/01/22 03:07 36.9 C 73 18 138/69 93 Nasal Cannula O2 Flow Rate 09/01/22 11:58 2 09/01/22 10:28 2 09/01/22 07:58 2 09/01/22 07:32 09/01/22 07:23 2 09/01/22 03:07 2 Laboratory Results Laboratory Results - last 24 hr 08/31/22 08/31/22 08/31/22 13:15 13:26 13:26 WBC 4.82 RBC 3.98 Hgb 11.8 L Hct 36.5 MCV 91.7 MCH 29.6 MCHC 32.3 RDW Std Deviation 45.5 RDW Coeff of Caterina 13.4 Plt Count 147 MPV 10.0 Immature Gran % (Auto) 0.6 Neut % (Auto) 69.5 Lymph % (Auto) 15.4 [place] % (Auto) 13.7 Eos % (Auto) 0.4 Baso % (Auto) 0.4 Neut # (Auto) 3.35 Lymph # (Auto) 0.74 L [place] # (Auto) 0.66 Eos # (Auto) 0.02 Baso # (Auto) 0.02 Immature Gran # (Auto) 0.03 H ESR 127 H PT INR Sodium 137 Potassium 3.7 Chloride 100 Carbon Dioxide 26 Anion Gap 11 BUN 18 Creatinine 0.81 Est Cr Clr Drug Dosing 56.4 Est GFR ( Amer) 76.2 Est GFR (Non-Af Amer) 65.8 BUN/Creatinine Ratio 22.2 H Glucose 127 H Calcium 8.7 Total Bilirubin 0.6 AST 19 ALT 13 Alkaline Phosphatase 62 Troponin I High Sens 9.0 C-Reactive Protein Total Protein 7.4 Albumin 3.6 Globulin 3.8 Albumin/Globulin Ratio 0.9 Lipase 29 Procalcitonin SARS-CoV-2 (PCR) Influenza Type A (PCR) Influenza Type B (PCR) RSV (RT-PCR) 08/31/22 08/31/22 08/31/22 13:26 13:26 13:39 WBC RBC Hgb Hct MCV MCH MCHC RDW Std Deviation RDW Coeff of Caterina Plt Count MPV Immature Gran % (Auto) Neut % (Auto) Lymph % (Auto) [place] % (Auto) Eos % (Auto) Baso % (Auto) Neut # (Auto) Lymph # (Auto) [place] # (Auto) Eos # (Auto) Baso # (Auto) Immature Gran # (Auto) ESR PT 27.5 H INR 2.7 H Sodium Potassium Chloride Carbon Dioxide Anion Gap BUN Creatinine Est Cr Clr Drug Dosing Est GFR ( Amer) Est GFR (Non-Af Amer) BUN/Creatinine Ratio Glucose Calcium Total Bilirubin AST ALT Alkaline Phosphatase Troponin I High Sens C-Reactive Protein 15.92 H Total Protein Albumin Globulin Albumin/Globulin Ratio Lipase Procalcitonin SARS-CoV-2 (PCR) POSITIVE A* Influenza Type A (PCR) Negative Influenza Type B (PCR) Negative RSV (RT-PCR) Negative 09/01/22 09/01/22 09/01/22 06:14 06:14 06:14 WBC 1.83 L RBC 3.81 L Hgb 11.4 L Hct 34.4 MCV 90.3 MCH 29.9 MCHC 33.1 RDW Std Deviation 43.8 RDW Coeff of Caterina 13.2 Plt Count 144 MPV 9.8 Immature Gran % (Auto) 0.5 Neut % (Auto) 66.1 Lymph % (Auto) 21.9 [place] % (Auto) 11.5 Eos % (Auto) 0.0 Baso % (Auto) 0.0 Neut # (Auto) 1.21 L Lymph # (Auto) 0.40 L [place] # (Auto) 0.21 L Eos # (Auto) 0.00 Baso # (Auto) 0.00 Immature Gran # (Auto) 0.01 ESR 122 H PT INR Sodium 134 L Potassium 4.1 Chloride 100 Carbon Dioxide 25 Anion Gap 9 BUN 20 Creatinine 0.64 Est Cr Clr Drug Dosing 69.9 Est GFR ( Amer) 93.6 Est GFR (Non-Af Amer) 80.8 BUN/Creatinine Ratio 31.3 H Glucose 157 H Calcium 8.7 Total Bilirubin AST ALT Alkaline Phosphatase Troponin I High Sens C-Reactive Protein 12.82 H Total Protein Albumin Globulin Albumin/Globulin Ratio Lipase Procalcitonin SARS-CoV-2 (PCR) Influenza Type A (PCR) Influenza Type B (PCR) RSV (RT-PCR) 09/01/22 08:27 WBC RBC Hgb Hct MCV MCH MCHC RDW Std Deviation RDW Coeff of Caterina Plt Count MPV Immature Gran % (Auto) Neut % (Auto) Lymph % (Auto) [place] % (Auto) Eos % (Auto) Baso % (Auto) Neut # (Auto) Lymph # (Auto) [place] # (Auto) Eos # (Auto) Baso # (Auto) Immature Gran # (Auto) ESR PT INR Sodium Potassium Chloride Carbon Dioxide Anion Gap BUN Creatinine Est Cr Clr Drug Dosing Est GFR ( Amer) Est GFR (Non-Af Amer) BUN/Creatinine Ratio Glucose Calcium Total Bilirubin AST ALT Alkaline Phosphatase Troponin I High Sens C-Reactive Protein Total Protein Albumin Globulin Albumin/Globulin Ratio Lipase Procalcitonin < 0.05 SARS-CoV-2 (PCR) Influenza Type A (PCR) Influenza Type B (PCR) RSV (RT-PCR) PG Care Time/CCT Total # of Minutes Spent Total Time Spent with Patient: Total time spent is greater than 50% in coordination of care (as documented) at patient's floor/unit and/or counseling patient: Coding Level of Care Code 54357 Subseq Hosp Care Lvl 2 Diagnoses Pneumonia due to COVID-19 virus U07.1; J12.82 Atrial fibrillation I48.91 Atrial fibrillation type: unspecified Venous ulcer I83.009; L97.909 Hypertension I10 Hypertension type: essential hypertension Pressure sore on buttocks L89.309 Pacemaker Z95.0 Chronic venous insufficiency I87.2 Hyperthyroidism E05.90 DVT prophylaxis Z29.9 Chronic renal failure, stage 3a N18.31 (1) Atrial fibrillation Atrial fibrillation type: unspecified Qualified Code(s): I48.91 - Unspecified atrial fibrillation (2) Hypertension Hypertension type: essential hypertension Qualified Code(s): I10 - Essential (primary) hypertension
[2022-09-01] MEDS: WARFARIN SOD 2 MG TAB PO SCH (17:29)
[2022-09-02] MEDS: CHOLECALCIFEROL 1,000 UNITS 25 MCG TAB PO SCH (08:30)
[2022-09-02] MEDS: lisinopril 10 MG TAB PO SCH (08:30)
[2022-09-02] MEDS: guaiFENesin 600 MG TABCR PO SCH ×2 (08:30→20:01)
[2022-09-02] MEDS: SILVER SULFADIAZINE 1% CR 50 GM JAR TOP SCH ×2 (08:31→20:03)
[2022-09-02] MEDS: DRONEDARONE HCL 400 MG TAB PO SCH ×2 (08:31→20:02)
[2022-09-02] MEDS: CALCIUM CARBONATE 500 MG CHEWABLE TAB PO SCH ×2 (08:31→20:01)
[2022-09-02] MEDS: METOPROLOL SUCC 50MG EXT REL TAB PO SCH (08:31)
[2022-09-02] MEDS: dexAMETHasone 6 MG in SYRINGE 0 ML IV SCH (08:31)
[2022-09-02 09:21] LABS: Hematocrit (blood only) 38.8 % (34.1-44.9); Hemoglobin 12.6 g/dl (12.0-16.0); Immature Granulocytes # (auto) 0.03 K/uL (0.00-0.02); Immature Granulocytes % (auto) 0.6 %; Mean Corpuscular Hemoglobin 29.5 pg (25.0-34.0); Mean Corpuscular Hgb Conc 32.5 g/dL (32.0-36.0); Mean Corpuscular Volume 90.9 fL (80.0-100.0); Mean Platelet Volume 9.6 fL (9.4-12.3); Monocytes # (auto) 0.74 K/uL (0.24-0.82); Monocytes % (auto) 13.7 %; Neutrophils # (auto) 3.92 K/uL (1.4-6.5); Neutrophils % (auto) 72.7 %; Platelet Count 199 K/uL (130-400); RDW Coefficient of Variation 13.4 % (11.5-14.5); RDW Standard Deviation 44.5 fL (36.4-46.3); Red Blood Count 4.27 M/uL (3.93-5.22); White Blood Count 5.39 K/ul (4.8-10.8)
[2022-09-02 09:40] LABS: INR 4.2 (0.9-1.1); Prothrombin Time 41.4 Seconds (9.0-12.0)
[2022-09-02 09:41] LABS: BUN Creatinine Ratio 42.5 (10-20); Calcium 9.3 mg/dl (8.5-10.1); Creatinine Clr Calc Pharmacy 51.4 ml/min; Est GFR (African American) 69.9 ml/min; Est GFR (Non-African American) 60.3 ml/min; Potassium 4.2 mmol/L (3.5-5.1)
[2022-09-02] MEDS ORDERED: FUROSEMIDE 20 MG TAB PO ONE (11:19)
--- NOTE | 2022-09-02 11:19 | Hospitalist Progress Note ---
Date of Service September 02, 2022 Assessment & Plan (1) Pneumonia due to COVID-19 virus: Plan: 2+ weeks of COVID symptoms. Severe hypoxia at time of admission with documented sats in the 70s. Sats remain low 90s on 2 L NC O2. CXR with classic COVID pneumonia. No complicating acute CHF but will give lasix 20mg po x 1 to keep I/O balance slightly negative. Procal negative; doubt bacterial superinfection. Cont dexamethasone 6mg IV daily - day #3 today. Cont incentive colt with flutter valve. Cont mucinex. She is overall very clinically stable. Given where she is in her illness course the worst is likely behind her. May be able to d/c tomorrow -- will need 2-step. PT, OT, however, recommending rehab or 24/7 supervision (currently lives alone). Will address with family. (2) Atrial fibrillation: Plan: Remains in NSR/pacing on tele. INR 4.2 today - hold coumadin today. Usual Home regimen - warfarin 1 mg , 2 mg all other days, . INR daily. Cont dronedarone BID. (3) Venous ulcer: Plan: Venous insufficiency with b/l venous ulcers. Wound care consult placed. (4) Hypertension: Plan: Hold HCTZ - lasix 20mg po x 1 in adelaida today. Cont IGOR Cont BB Controlled (5) Pressure sore on buttocks: Plan: Early stage, wound care consulted as above. Reposition patient every 2 hours, offset pressure. 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 Follows with [facility] cardiology. Pacing on monitor. (7) Chronic venous insufficiency: (8) Hyperthyroidism: Plan: TSH 06/2022 wnl Not on meds for such (9) DVT prophylaxis: Plan: coumadin INR today >4 - hold coumadin today INR daily while here (10) Chronic renal failure, stage 3a: Plan: Creatinine stable once again BMP am Plan PT, OT both suggest acute rehab vs 24/7 supervision at home patient adamantly opposed to rehab by report this will need to be discussed with patient directly daughter extensively updated at bedside yesterday called daughter this evening - was not home, but spoke to son-in-law, gave extensive update to him including recs from PT/OT - he will pass message on to progressing nicely Admission and Anticipated Discharge Date Admission Date: August 31, 2022 Subjective patient feeling good cough much improved denies dyspnea at rest minimal NICHOLAS staff cont to report desats to low 80s with walking in room eating well energy improved no new complaints tele - pacing Review of Systems Review of Systems: gen - no fevers or chills cv - no chest pain pulm - no sputum, no wheezing GI - no nausea or emesis; diarrhea improved Physical Exam Physical Exam: gen - looks good, NAD, no respiratory distress; sitting in chair comfortably mouth - MMM neck - no JVD heart - RRR, s1 s2, no murmur lungs - diffuse crackles b/l extending 1/[address] up back - perhaps mildly improved today, no wheeze, no increased work of breathing abd - soft NT ND BS+ ext - trace edema b/l, pulses 2+ b/l skin - dressings intact b/l shins; these were removed; venous stasis ulcer R jimenez - 3cm in diameter, 2mm deep down to adipose tissue; left jimenez - superficial venous ulcer, about 1mm in depth, about 1.5-2cm in diameter; significant venous stasis changes b/l legs psych - a/o x 3 Results & Data Results & Data ([facility]) Vital Signs (Past 12 Hours) Vital Signs Temp Pulse Pulse Resp BP Pulse Ox O2 Del Method 09/02/22 09:26 Nasal Cannula 09/02/22 07:17 61 09/02/22 03:55 36.6 C 62 18 137/70 91 Nasal Cannula 09/02/22 02:26 67 09/02/22 02:03 Nasal Cannula O2 Flow Rate 09/02/22 09:26 2 09/02/22 07:17 09/02/22 03:55 2 09/02/22 02:26 09/02/22 02:03 2 Laboratory Results Laboratory Results - last 24 hr 09/02/22 09/02/22 09/02/22 08:59 08:59 08:59 WBC 5.39 RBC 4.27 Hgb 12.6 Hct 38.8 MCV 90.9 MCH 29.5 MCHC 32.5 RDW Std Deviation 44.5 RDW Coeff of Caterina 13.4 Plt Count 199 MPV 9.6 Immature Gran % (Auto) 0.6 Neut % (Auto) 72.7 Lymph % (Auto) 13.0 [place] % (Auto) 13.7 Eos % (Auto) 0.0 Baso % (Auto) 0.0 Neut # (Auto) 3.92 Lymph # (Auto) 0.70 L [place] # (Auto) 0.74 Eos # (Auto) 0.00 Baso # (Auto) 0.00 Immature Gran # (Auto) 0.03 H PT 41.4 H INR 4.2 H Sodium 137 Potassium 4.2 Chloride 101 Carbon Dioxide 27 Anion Gap 9 BUN 37 H Creatinine 0.87 Est Cr Clr Drug Dosing 51.4 Est GFR ( Amer) 69.9 Est GFR (Non-Af Amer) 60.3 BUN/Creatinine Ratio 42.5 H Glucose 110 H Calcium 9.3 PG Care Time/CCT Total # of Minutes Spent Total Time Spent with Patient: Total time spent is greater than 50% in coordination of care (as documented) at patient's floor/unit and/or counseling patient: Coding Level of Care Code 34409 Subseq Hosp Care Lvl 2 Diagnoses Pneumonia due to COVID-19 virus U07.1; J12.82 Atrial fibrillation I48.91 Atrial fibrillation type: unspecified Venous ulcer I83.009; L97.909 Hypertension I10 Hypertension type: essential hypertension Pressure sore on buttocks L89.309 Pacemaker Z95.0 Chronic venous insufficiency I87.2 Hyperthyroidism E05.90 DVT prophylaxis Z29.9 Chronic renal failure, stage 3a N18.31 (1) Atrial fibrillation Atrial fibrillation type: unspecified Qualified Code(s): I48.91 - Unspecified atrial fibrillation (2) Hypertension Hypertension type: essential hypertension Qualified Code(s): I10 - Essential (primary) hypertension
[2022-09-02] MEDS ORDERED: WARFARIN SOD 1 MG TAB PO SCH (16:00)
[2022-09-03 07:14] LABS: Calcium 8.8 mg/dl (8.5-10.1); Creatinine Clr Calc Pharmacy 46.7 ml/min; Est GFR (African American) 62.1 ml/min; Est GFR (Non-African American) 53.6 ml/min
[2022-09-03 07:15] LABS: Prothrombin Time 57.1 Seconds (9.0-12.0)
[2022-09-03 07:30] LABS: INR 5.9 (0.9-1.1)
[2022-09-03] MEDS: guaiFENesin 600 MG TABCR PO SCH ×2 (08:07→20:59)
[2022-09-03] MEDS: CALCIUM CARBONATE 500 MG CHEWABLE TAB PO SCH ×2 (08:08→20:59)
[2022-09-03] MEDS: DRONEDARONE HCL 400 MG TAB PO SCH ×2 (08:08→20:59)
[2022-09-03] MEDS: CHOLECALCIFEROL 1,000 UNITS 25 MCG TAB PO SCH (08:09)
[2022-09-03] MEDS: METOPROLOL SUCC 50MG EXT REL TAB PO SCH (08:09)
[2022-09-03] MEDS: dexAMETHasone 6 MG in SYRINGE 0 ML IV SCH (08:09)
[2022-09-03] MEDS: lisinopril 10 MG TAB PO SCH (08:09)
[2022-09-03] MEDS: SILVER SULFADIAZINE 1% CR 50 GM JAR TOP SCH ×2 (08:10→20:59)
--- NOTE | 2022-09-03 18:34 | Hospitalist Progress Note ---
Date of Service September 03, 2022 Assessment & Plan (1) Pneumonia due to COVID-19 virus: Plan: 2+ weeks of COVID symptoms prior to arrival Severe hypoxia at time of admission with documented sats in the 70s. CXR with classic COVID pneumonia. No complicating acute CHF but ws given lasix 20mg po x 1 to keep I/O balance slightly negative. Procal negative; doubt bacterial superinfection. Cont dexamethasone 6mg IV daily - last day of tx will be 09/09 Cont incentive colt with flutter valve. Cont mucinex. She is overall much improved Passed a 2-step walk test today, not needing supplemental O2 If continues to do well, can dc to home tomorrow as she is now much stronger and doing better with PT, does not joshua erehab Needs f/u CXR in 4-6 weeks to ensure resolution of PNA (2) Atrial fibrillation: Plan: Remains in NSR/pacing on tele. INR up further to 5.9, no bleeding - continue to hold coumadin today. Usual Home regimen - warfarin 1 mg , 2 mg all other days, . INR daily. Cont dronedarone BID. (3) Venous ulcer: Plan: Venous insufficiency with b/l venous ulcers. Wound care consult placed. Desires outpt wound care clinic follow up (4) Hypertension: Plan: Hold HCTZ and was given lasix po x 1 on 09/02 Cont IGOR Cont BB Controlled (5) Pressure sore on buttocks: Plan: Early stage, wound care consulted as above. Reposition patient every 2 hours, offset pressure. 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 Follows with [facility] cardiology. Pacing on monitor. (7) Chronic venous insufficiency: (8) Hyperthyroidism: Plan: TSH 06/2022 wnl Not on meds for such (9) Chronic renal failure, stage 3a: Plan: renal function stable -Avoid nephrotoxins -renally dose meds when appropriate Plan DVT prophylaxis-coumadin Dispo-dc to home tomorrow possibly w/ HH, much improved Admission and Anticipated Discharge Date Admission Date: August 31, 2022 Subjective Pt feeling much better and stronger today. Is weaned off O2 and reports doing much better w/ PT today. Minimal cough, no SOB. No nausea, is eating well, moving bowels. No bleeding from anywhere Tele with paced rhythm in the 60s Review of Systems Review of Systems: All systems reviewed & are unremarkable except as noted in HPI & below Physical Exam Physical Exam: gen - looks good, NAD, no respiratory distress; sitting in chair comfortably mouth - MMM neck - no JVD heart - RRR, s1 s2, no murmur lungs -+crackles R>L in lower and middle lung vicente, no wheezing, breathing unlabored abd - soft NT ND BS+ ext - trace edema b/l, pulses 2+ b/l skin - dressings intact b/l shins not removed, pictures reviewed psych - a/o x 3 Results & Data Results & Data ([facility]) Vital Signs (Past 12 Hours) Vital Signs Temp Pulse Pulse Pulse Pulse Pulse Resp 09/03/22 15:23 60 09/03/22 11:42 36.3 C L 64 20 09/03/22 10:48 88 68 76 09/03/22 08:45 09/03/22 08:11 36.3 C L 64 16 09/03/22 07:09 60 Resp Resp Resp BP Pulse Ox Pulse Ox Pulse Ox 09/03/22 15:23 09/03/22 11:42 175/78 H 94 09/03/22 10:48 20 18 18 90 94 09/03/22 08:45 09/03/22 08:11 150/72 H 95 09/03/22 07:09 Pulse Ox O2 Del Method O2 Flow Rate 09/03/22 15:23 09/03/22 11:42 Room Air 09/03/22 10:48 92 09/03/22 08:45 Nasal Cannula 2 09/03/22 08:11 Nasal Cannula 2 09/03/22 07:09 Laboratory Results 09/03/22 09/03/22 Range/Units 06:11 06:11 PT 57.1 H (9.0-12.0) Seconds INR 5.9 H* (0.9-1.1) Sodium 137 (136-145) mmol/L Potassium 4.0 (3.5-5.1) mmol/L Chloride 103 (98-107) mmol/L Carbon Dioxide 27 (21-32) mmol/L Anion Gap 7 (3-11) BUN 49 H (6-23) mg/dl Creatinine 0.96 (0.6-1.2) mg/dl Est Cr Clr Drug Dosing 46.7 ml/min Est GFR ( Amer) 62.1 ml/min Est GFR (Non-Af Amer) 53.6 ml/min BUN/Creatinine Ratio 51.0 H (10-20) Glucose 121 H (70-99(Fasting)) mg/dl Calcium 8.8 (8.5-10.1) mg/dl PG Care Time/CCT Total # of Minutes Spent Total Time Spent with Patient: Total time spent is greater than 50% in coordination of care (as documented) at patient's floor/unit and/or counseling patient: Coding Level of Care Code 87805 Subseq Hosp Care Lvl 2 Diagnoses Pneumonia due to COVID-19 virus U07.1; J12.82 Atrial fibrillation I48.91 Atrial fibrillation type: unspecified Venous ulcer I83.009; L97.909 Hypertension I10 Hypertension type: essential hypertension Pressure sore on buttocks L89.309 Pacemaker Z95.0 Chronic venous insufficiency I87.2 Hyperthyroidism E05.90 Chronic renal failure, stage 3a N18.31 (1) Atrial fibrillation Atrial fibrillation type: unspecified Qualified Code(s): I48.91 - Unspecified atrial fibrillation (2) Hypertension Hypertension type: essential hypertension Qualified Code(s): I10 - Essential (primary) hypertension
[2022-09-04 06:49] LABS: Prothrombin Time 68.5 Seconds (9.0-12.0)
[2022-09-04 06:57] LABS: BUN Creatinine Ratio 61.7 (10-20); Calcium 8.6 mg/dl (8.5-10.1); Creatinine Clr Calc Pharmacy 55.3 ml/min; Est GFR (African American) 76.2 ml/min; Est GFR (Non-African American) 65.8 ml/min; Potassium 4.1 mmol/L (3.5-5.1)
[2022-09-04 07:02] LABS: INR 7.2 (0.9-1.1)
[2022-09-04] MEDS: CHOLECALCIFEROL 1,000 UNITS 25 MCG TAB PO SCH (08:32)
[2022-09-04] MEDS: lisinopril 10 MG TAB PO SCH (08:32)
[2022-09-04] MEDS: guaiFENesin 600 MG TABCR PO SCH ×2 (08:33→19:52)
[2022-09-04] MEDS: CALCIUM CARBONATE 500 MG CHEWABLE TAB PO SCH ×2 (08:34→19:50)
[2022-09-04] MEDS: METOPROLOL SUCC 50MG EXT REL TAB PO SCH (08:34)
[2022-09-04] MEDS: SILVER SULFADIAZINE 1% CR 50 GM JAR TOP SCH ×2 (08:35→19:52)
[2022-09-04] MEDS: DRONEDARONE HCL 400 MG TAB PO SCH ×2 (08:36→19:50)
[2022-09-04] MEDS: dexAMETHasone 6 MG in SYRINGE 0 ML IV SCH (08:46)
[2022-09-04] MEDS ORDERED: PHYTONADIONE 5 MG TAB PO STA (09:08)
--- NOTE | 2022-09-04 15:37 | Hospitalist Progress Note ---
Date of Service September 04, 2022 Assessment & Plan (1) Pneumonia due to COVID-19 virus: Plan: 2+ weeks of COVID symptoms prior to arrival Severe hypoxia at time of admission with documented sats in the 70s. CXR with classic COVID pneumonia. No complicating acute CHF but was given lasix 20mg po x 1 to keep I/O balance slightly negative. Procal negative; doubt bacterial superinfection. Cont dexamethasone 6mg IV daily - last day of tx will be 09/09 Cont incentive colt with flutter valve. Cont mucinex. She is overall much improved Passed a 2-step walk test, not needing supplemental O2 Needs f/u CXR in 4-6 weeks to ensure resolution of PNA -awaiting rehab placement due to general weakness (2) Atrial fibrillation: Plan: Remains in NSR/pacing on tele. INR up yet again today to 7.2 likely 2/2 steroid use-- no bleeding Usual Home regimen - warfarin 1 mg , 2 mg all other days, . - - continue to hold coumadin today -give vitamin K 1.25mg po x 1, repeat INR later down to 6.7 -check INR daily. -Cont dronedarone BID (3) Venous ulcer: Plan: Venous insufficiency with b/l venous ulcers. Wound care consult placed. Desires outpt wound care clinic follow up (4) Hypertension: Plan: restart HCTZ in the AM Cont ACEi Cont BB Controlled to mildly elevated BPs (5) Pressure sore on buttocks: Plan: Early stage, wound care consulted as above. Reposition patient every 2 hours, offset pressure. 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 Follows with [facility] cardiology. Pacing on monitor. (7) Chronic venous insufficiency: Plan: as above, with ulcers (8) Hyperthyroidism: Plan: TSH 06/2022 wnl Not on meds for such (9) Chronic renal failure, stage 3a: Plan: renal function stable -Avoid nephrotoxins -renally dose meds when appropriate Plan DVT prophylaxis-coumadin Dispo-dc to rehab at [facility] tomorrow Admission and Anticipated Discharge Date Admission Date: August 31, 2022 Subjective Denies SOB, CP. Had a normal BM today. No bleeding from anywhere despite INR continuing to rise. She feels she is a bit weak still and now is willing to go to rehab. Tele with NSR rate in the 70s Review of Systems Review of Systems: All systems reviewed & are unremarkable except as noted in HPI & below Physical Exam Physical Exam: gen - AAOx3, NAD, no respiratory distress heart - RRR, s1 s2, no murmur lungs -+crackles R>L in lower and middle lung vicente, no wheezing, breathing unlabored abd - soft NT ND BS+ ext - trace edema b/l, pulses 2+ b/l skin - dressings intact b/l shins not removed, pictures reviewed; with chronic venous stasis changes psych - a/o x 3 Results & Data Results & Data ([facility]) Vital Signs (Past 12 Hours) Vital Signs Temp Pulse Pulse Resp BP Pulse Ox O2 Del Method 09/04/22 15:20 61 09/04/22 12:05 36.7 C 62 20 163/74 H 95 Room Air 09/04/22 08:14 36.4 C L 64 20 171/73 H 93 Room Air 09/04/22 07:23 63 09/04/22 04:01 36.4 C L 63 20 150/78 H 91 Room Air Laboratory Results 09/04/22 09/04/22 09/04/22 Range/Units 15:34 05:36 05:36 PT 64.3 H 68.5 H (9.0-12.0) Seconds INR 6.7 H* 7.2 H* (0.9-1.1) Sodium 140 (136-145) mmol/L Potassium 4.1 (3.5-5.1) mmol/L Chloride 106 (98-107) mmol/L Carbon Dioxide 26 (21-32) mmol/L Anion Gap 8 (3-11) BUN 50 H (6-23) mg/dl Creatinine 0.81 (0.6-1.2) mg/dl Est Cr Clr Drug Dosing 55.3 ml/min Est GFR ( Amer) 76.2 ml/min Est GFR (Non-Af Amer) 65.8 ml/min BUN/Creatinine Ratio 61.7 H (10-20) Glucose 137 H (70-99(Fasting)) mg/dl Calcium 8.6 (8.5-10.1) mg/dl Magnesium 2.0 (1.7-2.4) mg/dl PG Care Time/CCT Total # of Minutes Spent Total Time Spent with Patient: Total time spent is greater than 50% in coordination of care (as documented) at patient's floor/unit and/or counseling patient: Coding Level of Care Code 73607 Subseq Hosp Care Lvl 2 Diagnoses Pneumonia due to COVID-19 virus U07.1; J12.82 Atrial fibrillation I48.91 Atrial fibrillation type: unspecified Venous ulcer I83.009; L97.909 Hypertension I10 Hypertension type: essential hypertension Pressure sore on buttocks L89.309 Pacemaker Z95.0 Chronic venous insufficiency I87.2 Hyperthyroidism E05.90 Chronic renal failure, stage 3a N18.31 (1) Atrial fibrillation Atrial fibrillation type: unspecified Qualified Code(s): I48.91 - Unspecified atrial fibrillation (2) Hypertension Hypertension type: essential hypertension Qualified Code(s): I10 - Essential (primary) hypertension
[2022-09-04 16:11] LABS: Prothrombin Time 64.3 Seconds (9.0-12.0)
[2022-09-04 16:20] LABS: INR 6.7 (0.9-1.1)
[2022-09-05 06:37] LABS: Basophils # (auto) 0.01 K/uL (0-0.2); Basophils % (auto) 0.2 %; Hematocrit (blood only) 37.3 % (34.1-44.9); Hemoglobin 12.1 g/dl (12.0-16.0); Immature Granulocytes # (auto) 0.04 K/uL (0.00-0.02); Immature Granulocytes % (auto) 0.7 %; Lymphocytes # (auto) 0.73 K/uL (1.2-3.4); Lymphocytes % (auto) 12.4 %; Mean Corpuscular Hemoglobin 29.7 pg (25.0-34.0); Mean Corpuscular Hgb Conc 32.4 g/dL (32.0-36.0); Mean Corpuscular Volume 91.4 fL (80.0-100.0); Mean Platelet Volume 9.3 fL (9.4-12.3); Monocytes # (auto) 0.84 K/uL (0.24-0.82); Monocytes % (auto) 14.2 %; Neutrophils # (auto) 4.28 K/uL (1.4-6.5); Neutrophils % (auto) 72.5 %; Platelet Count 187 K/uL (130-400); RDW Coefficient of Variation 13.4 % (11.5-14.5); RDW Standard Deviation 45.3 fL (36.4-46.3); Red Blood Count 4.08 M/uL (3.93-5.22)
[2022-09-05 07:05] LABS: BUN Creatinine Ratio 60.3 (10-20); Calcium 8.7 mg/dl (8.5-10.1); Creatinine Clr Calc Pharmacy 61.2 ml/min; Est GFR (African American) 86.4 ml/min; Est GFR (Non-African American) 74.6 ml/min; Potassium 4.4 mmol/L (3.5-5.1)
[2022-09-05 07:24] LABS: INR 3.4 (0.9-1.1)
[2022-09-05] MEDS: dexAMETHasone 6 MG in SYRINGE 0 ML IV SCH (08:48)
[2022-09-05] MEDS: lisinopril 10 MG TAB PO SCH (08:49)
[2022-09-05] MEDS: DRONEDARONE HCL 400 MG TAB PO SCH (08:49)
[2022-09-05] MEDS: CALCIUM CARBONATE 500 MG CHEWABLE TAB PO SCH (08:49)
[2022-09-05] MEDS: guaiFENesin 600 MG TABCR PO SCH (08:49)
[2022-09-05] MEDS: METOPROLOL SUCC 50MG EXT REL TAB PO SCH (08:49)
[2022-09-05] MEDS: CHOLECALCIFEROL 1,000 UNITS 25 MCG TAB PO SCH (08:49)
[2022-09-05] MEDS: SILVER SULFADIAZINE 1% CR 50 GM JAR TOP SCH (08:50)
[2022-09-05] MEDS ORDERED: MULTIVITAMIN TAB PO SCH (09:00)
[2022-09-05] MEDS: hydroCHLOROthiazide 25 MG TAB PO SCH (10:00)
--- NOTE | 2022-09-05 11:58 | Discharge Summary ---
Date of Service September 05, 2022 Admission HPI Per Admitting Provider Radha Floyd is an 87-year-old female with past medical history significant for A. fib, hyperthyroidism, hypertension, tachybradycardia syndrome s/p pacemaker placement, CAD, osteoporosis, and venous stasis who presents today with URI symptoms. For 2 weeks she has had a cough sometimes productive of sputum and worsening shortness of breath with activities she could previously tolerate like walk around her home and daily chores. He has not had any fever chills or body aches. She did lose her taste and smell over the past 2 weeks, but has regained it back in the past day. He has not had any chest pain or palpitations. One of her children are sick, unknown if they are positive for COVID, she denies other known sick contacts. She is not vaccinated for COVID. Upon presentation to the ED, O2 saturations are above 90% at rest, however desat to 87% and below when walking around the room, now on 3 L NC. She is COVID- positive. Labs otherwise unrevealing, stable Hgb, no electrode abnormalities, renal function at baseline, without transaminitis, initial troponin checked, is 9.0. CXR shows patchy bibasilar airspace opacities consistent with a pneumonia, likely viral process. Principal Diagnosis COVID-19, Pneumonia, Acute respiratory failure with hypoxia Discharge Exam gen - AAOx3, NAD, no respiratory distress heart - RRR, s1 s2, no murmur lungs -+crackles R>L in lower and middle lung vicente, no wheezing, breathing unlabored abd - soft NT ND BS+ ext - trace edema b/l, pulses 2+ b/l skin - dressings intact b/l shins not removed, pictures reviewed; with chronic venous stasis changes psych - a/o x 3 Discharge Data Allergies Allergy/AdvReac Type Severity Reaction Status Date / Time Sulfa (Sulfonamide Allergy Severe rash Verified 08/31/22 16:15 Antibiotics) latex Allergy Unknown UNKNOWN Verified 08/31/22 16:15 cephalexin Allergy Diarrhea Verified 08/31/22 16:15 Consultations 08/31/22 13:55 ED Decision to Admit Stat Hospital Course (1) Pneumonia due to COVID-19 virus: 2+ weeks of COVID symptoms prior to arrival Severe hypoxia at time of admission with documented sats in the 70s. CXR with classic COVID pneumonia. No complicating acute CHF but was given lasix 20mg po x 1 to keep I/O balance slightly negative. Procal negative; doubt bacterial superinfection. Cont dexamethasone 6mg daily - last day of tx will be 09/09 Cont incentive colt with flutter valve. Cont mucinex. She is overall much improved Passed a 2-step walk test, not needing supplemental O2 Needs f/u CXR in 4-6 weeks to ensure resolution of PNA (2) Atrial fibrillation: Remains in NSR/pacing on tele. INR up to 7.2 during hospitalization likely 2/2 steroid use-- no bleeding Was given 1.25mg po Vitamin K on 09/04 and coumadin was held for several days. INR on day of discharge down to 3.4 Usual Home regimen - warfarin 1 mg , 2 mg all other days, . -ok to restart coumadin at lower dose of 1 mg daily -repeat PT/INR with home health in 2 days -Cont dronedarone BID (3) Venous ulcer: Venous insufficiency with b/l venous ulcers. Wound care consult placed. Desires outpt wound care clinic follow up but can also get home health wound care initially while home bound (4) Hypertension: continue HCTZ Cont ACEi Cont BB (5) Pressure sore on buttocks: Early stage, wound care consulted as above. offset pressure. (6) Pacemaker: Pacemaker placed 2nd to tachybradycardia syndrome. Follows with [facility] cardiology. Pacing on monitor. (7) Chronic venous insufficiency: as above, with ulcers (8) Hyperthyroidism: TSH 06/2022 wnl Not on meds for such (9) Chronic renal failure, stage 3a: renal function stable -Avoid nephrotoxins -renally dose meds when appropriate Plan DVT prophylaxis-coumadin Dispo-dc to home with home health today. No bed available at acute rehab for last 2 days and patient does not want to wait. Medically stable for discharge to home Discussed her care with daughter on phone on day of discharge Total Time Total Time Spent Total Time Spent (In Minutes): 40 min Discharge Plan Discharge Items Patient Disposition: Home - Home Health Services Reason For Visit: COVID PNEUMONIA Discharge Diagnosis: COVID-19, Pneumonia, Acute respiratory failure with hypoxia Condition on Discharge: Good Activity: As commented below Bathing: No limitations Exercise/Sports: Gradually increase as tolerated Non-emergency contact: Primary Care Provider Call non-emergency contact if: you have any medication questions and your symptoms worsen Follow-up/Referrals: Kelvin Vee DO [Primary Care Provider] - 09/16/22 9:20 am Diet: Heart Healthy Ambulatory Orders: Prothrombin Time INR (Routine) Timeframe: 2 Days Location: Determined by Patient Ordered By: Liz Garcia Attending Provider Instructions: Please finish out 4 more days of dexamethasone. You will need to have a PT/INR drawn in 2 days as your INR was quite high and you were given vitamin K to lower it. Your coumadin was restarted on 09/05 at a lower dose of 1 mg daily. This was likely due to an interaction with the dexamethasone. Please have the home health nurse draw the blood work and send the results to your Coumadin Clinic at [facility]. You should have a chest xray in 4-6 weeks to ensure your pneumonia is completely resolved. Pending Studies at Discharge: No Stand-Alone Forms: My [facility], Smoking Cessation Medications and DC Order Prescriptions: New dexamethasone 6 mg tablet 6 mg PO DAILY Qty: 4 0RF Continued calcium carbonate 500 mg calcium (1,250 mg) tablet 500 mg PO QAM dronedarone [Multaq] 400 mg tablet 400 mg PO BID metoprolol succinate [Toprol XL] 50 mg tablet extended release 24 hr 50 mg PO DAILY multivitamin tablet 1 tab PO DAILY nitroglycerin [Nitrostat] 0.4 mg tablet, sublingual 0.4 mg SL Q5M PRN (Reason: Chest Pain) Lac-Hydrin Five 5 % lotion 1 applic topical DAILY PRN (Reason: dry skin) Qty: 226 1RF silver sulfadiazine [Silvadene] 1 % cream 1 applic topical BID Qty: 50 0RF Rx Instructions: apply a 1.5 mm thickness biotin 10 mg tablet 10 mg PO DAILY acetaminophen [Tylenol Extra Strength] 500 mg Tablet 1,000 mg PO Q6H PRN (Reason: Pain) mupirocin 2 % ointment 1 applic TOPICAL DIRECTED cholecalciferol (vitamin D3) [Vitamin D3] 125 mcg (5,000 unit) Tablet 125 mcg PO DAILY lisinopril 10 mg tablet 10 mg PO DAILY Rx Instructions: TAKE ONE TABLET BY MOUTH DAILY hydrochlorothiazide 12.5 mg tablet 12.5 mg PO DAILY Rx Instructions: TAKE ONE TABLET BY MOUTH DAILY Changed warfarin [Jantoven] 1 mg tablet 1 mg PO DAILY Qty: 30 0RF Rx Instructions: PT TAKE ON SAT AND SUN Discontinued warfarin [Coumadin] 1 mg tablet 1 mg PO UD Label Comments: 1 mg PO ; Rx Instructions: PT TAKE Fri AND FRI Discharge Orders: Discharge Order (Routine); Ordered 09/05/22 Ordered By: Liz Moreira Admission Data Admit Date/Time: 08/31/22 14:52 Attending Provider: Liz Moreira Admit Provider: Misha Ford Primary Care Provider: Kelvin Vee Other Providers: Misha Ford ; [facility] Coding Level of Care Code D/C DAY MANAGEMENT >30 MINS Diagnoses Pneumonia due to COVID-19 virus U07.1; J12.82 Atrial fibrillation I48.91 Atrial fibrillation type: unspecified Venous ulcer I83.009; L97.909 Hypertension I10 Hypertension type: essential hypertension Pressure sore on buttocks L89.309 Pacemaker Z95.0 Chronic venous insufficiency I87.2 Hyperthyroidism E05.90 Chronic renal failure, stage 3a N18.31
[2022-09-05] MEDS ORDERED: WARFARIN SOD 1 MG TAB PO SCH (16:00)
== END 2022-09-05 18:07 | disposition home health service (06) | DRG 177 ==
LOC: ED 12:32 → SUATTDRO 14:52 → 2W 14:52 → 2N 09-04 06:15

== ENCOUNTER 2023-12-01 17:59 | Inpatient (IN) ==
[2023-12-01] MEDS: SODIUM CHLORIDE 0.9% 1,000 ML IV ONE (19:12)
[2023-12-01 19:30] LABS: iSTAT Creatinine 1.2 mg/dl (0.6-1.3); iSTAT Hemoglobin 7.5 g/dl (12.0-16.0); iSTAT Ionized Calcium 1.18 mmol/l (1.12-1.32); iSTAT Potassium 5.8 mmol/L (3.3-5.0)
[2023-12-01 19:32] LABS: Basophils # (auto) 0.05 K/uL (0.00-0.20); Basophils % (auto) 0.7 %; Eosinophils # (auto) 0.06 K/uL (0.00-0.50); Eosinophils % (auto) 0.9 %; Hematocrit (blood only) 24.4 % (37.0-47.0); Hemoglobin 8.1 g/dl (12.0-16.0); Immature Granulocytes # (auto) 0.04 K/uL (0.01-0.20); Immature Granulocytes % (auto) 0.6 %; Lymphocytes # (auto) 1.06 K/uL (1.20-3.40); Lymphocytes % (auto) 15.6 %; Mean Corpuscular Hemoglobin 31.6 pg (25.0-34.0); Mean Corpuscular Hgb Conc 33.2 g/dL (32.0-36.0); Mean Corpuscular Volume 95.3 fL (80.0-100.0); Mean Platelet Volume 10.2 fL (9.4-12.4); Monocytes # (auto) 0.82 K/uL (0.11-0.59); Neutrophils # (auto) 4.78 K/uL (1.40-6.50); Neutrophils % (auto) 70.2 %; Platelet Count 168 K/uL (130-400); RDW Coefficient of Variation 15.3 % (11.5-14.5); RDW Standard Deviation 53.6 fL (36.4-46.3); Red Blood Count 2.56 M/uL (4.20-5.40); White Blood Count 6.81 K/ul (4.8-10.8)
[2023-12-01 19:39] LABS: Albumin Globulin Ratio 1.3 (0.9-2); Albumin Level 3.1 gm/dl (3.4-5.0); BUN Creatinine Ratio 86.7 (10-20); Bilirubin,Total 0.6 mg/dl (0.2-1.0); Calcium 8.1 mg/dl (8.6-10.3); Creatinine Clr Calc Pharmacy 40.4 ml/min; Est GFR (African American) 50.6 ml/min; Est GFR (Non-African American) 43.7 ml/min; Globulin 2.4 gm/dl (2.5-4.0); Magnesium 1.9 mg/dl (1.7-2.4); Potassium 5.7 mmol/L (3.5-5.1); Total Protein 5.5 gm/dl (6.0-8.3)
[2023-12-01 19:45] LABS: Troponin I High Sensitivity 5.1 pg/ml (0-14)
--- NOTE | 2023-12-01 19:54 | Emergency Department Note ---
Impression & Plan Generalized weakness, Anemia, Acute GI bleeding, Hypotension ED Provider Note ED Provider Note NAME: JOSE RAFAEL MEJIA AGE:88 SEX: Female : 1935 ARRIVES VIA: EMS INFORMANT: Patient ED PROVIDER(s): Isabela Latif DO CHIEF COMPLAINT: Black stools, fatigue HPI: This is an 88-year-old female presents emergency room due to concern for increased weakness and fatigue today as well as noting several episodes of black stools. Patient states her stools were loose but not fulminant diarrhea. She states stools yesterday were formed and regular. She denies any coming abdominal pain. She denies any history of stomach ulcers or increased reflux. She denies fevers, chills, or URI symptoms. She states she has been more fatigued and winded with any exertion but otherwise denies any chest pain or shortness of breath when at rest. No vomiting or nausea. Patient does have a history of atrial fibrillation and takes Coumadin daily. Patient has never had a prior colonoscopy. No prior history of GI bleed. Patient seen in conjunction with FP resident, Dr. Prakash. Patient found to be hypotensive on arrival here. Nursing staff started IV fluids when labs obtained and IV started. Patient's blood pressure did slowly improve with IV fluids. PAST MEDICAL HISTORY:See Below PAST SURGICAL HISTORY:See Below FAMILY HISTORY:See Below SOCIAL HISTORY:See Below HOME MEDICATIONS:See Below ALLERGIES:See Below VITALS:See Below PHYSICAL EXAMINATION: GENERAL: alert, well appearing, well nourished, no distress, non-toxic EYE EXAM: normal conjunctiva, PERRL and EOM's grossly intact OROPHARYNX: no exudate, no erythema, lips, buccal mucosa, and tongue normal and mucous membranes are moist NECK: supple, no nuchal rigidity, no adenopathy, non-tender LUNGS: Clear to auscultation. Normal chest wall mechanics, no w/r/r HEART: no murmurs, S1 normal and S2 normal ABDOMEN: abdomen soft, non-tender, normo-active bowel sounds, no masses, no rebound or guarding. RECTAL: Performed at bedside with FP resident accompanying, no obvious hemorrhoids or anal fissure, melanotic/maroon stools noted which were heme positive on guaiac test BACK: Back is symmetrical on inspection and there is no deformity, no midline tenderness, no CVA tenderness. SKIN: no rashes, petechiae, orbruising UPPER EXTREMITIES: upper extremities are grossly normal. FROM, nml pulses b/l. LOWER EXTREMITIES: No pitting edema. FROM, nml pulses b/l. NEURO EXAM: Normal sensorium, cranial nerves II-XII grossly intact, normal speech, no facial droop,nogross weakness of arms, no gross weakness of legs. Gross sensation intact. No ataxia. Vital Signs: reviewed and remarkable Differential Diagnosis: diverticulosis, AVM, coagulopathy, colitis, inflammatory bowel disease, malignancy, Nara-Crawley tear, esophagitis, peptic ulcer disease, variceal bleed, gastritis, epistaxis, fissure, hemorrhoids, as well as others were entertained. MEDICAL DECISION MAKING: This is an 88-year-old female who presents to the emergency room due to concern for weakness, fatigue, and melanotic stools at home. Patient noted to be hypotensive on arrival. Labs drawn and sent, IV established, EKG and chest ray performed bedside interpreted me and patient monitored in telemetry. She was started on IV fluids while being interviewed by the family practice resident at bedside. Patient denied any abdominal pain, chest pain, or palpitations. Her blood pressure did respond to IV fluid bolus and she was transition to maintenance fluids. After my evaluation we discussed additional CT imaging. Rectal exam at bedside was heme positive on guaiac testing. Patient noted to have significant drop in her H&H compared to prior. She does use Coumadin due to history of A-fib, and due to persistent episodes of intermittent hypotension, was given IV vitamin K for reversal. She was given IV Protonix additionally as a precaution. She was typed and crossed initially and after further intermittent episodes of hypotension I discussed with the hospitalist initiating a blood transfusion. While I was discussing this with the patient and family, the hospitalist did place this order. Patient continued to have slight episodes and was given an additional bolus of IV fluids while awaiting blood for transfusion. Patient did have a further episode of melanotic stool while in the emergency room. I did discuss all results with patient and family at bedside as well as possible differential diagnosis. CT did not reveal any additional acute pathology. Consultation(s): 2113: Discussed with Dr. Luu, [place] hospitalist team, for additional evaluation and management. ER Treatment Provided: See below 2034: Patient's blood pressure now downtrending again since she has returned to the room from CAT scan and has been off IV fluids. 2143: Patient's blood pressure dropping again. Patient had another BM. Hospitalist contacted and they had already obtained blood consent and will order 1 unit of packed RBCs. Additional IV fluids opened as a bolus in the interim due to the hypotension. Diagnostics Interpreted By Me: -ECG: Paced at 67, normal axis, normal intervals, nonspecific ST/T wave changes -Cardiac Monitoring: An order was placed for continuous cardiac monitoring. The monitor shows a rate of 64 with normal sinus rhythm. -Laboratory studies: As stated above and show below. -Imaging studies: X-ray Chest: A single view study of the chest was reviewed and was negative for cardiomegaly, focal infiltrate, effusion, pulmonary edema, or wide mediastinum. Pacer present. Triage Nursing Note Reviewed Prior/Outside Records Reviewed Critical Care: Critical care of 44 min performed to assess and manage high likelihood of life- threatening anemia and hypotension, involving labs and imaging performed with assessment to evaluate anemia and hypotension diagnosis with frequent reassessment. This time includes bedside time, treatment discussions with patient/family/consultants, documentation time and excludes procedure time. Past Med/Surg History Medical History (Updated 12/02/23 @ 19:17 by Dandy Meléndez MD) Pressure ulcer of left foot, stage 3 Encounter for pre-operative examination Venous stasis ulcer chronic BLLE. dressing changes at wound clinich on Tuesdays and home nursing on Fridays History of basal cell carcinoma HTN (hypertension) Pacemaker placed 2006 - .fib -- [employer] -- last check 10/2022 History of myocardial infarction 1990s Slow to wake up after anesthesia Osteoarthritis Osteopenia Multinodular goiter Hyperthyroidism Hypertension Atrial fibrillation, chronic on warfarin. Follows with René Block PA-C. 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 Dr. Farfan S/P Mohs surgery for basal cell carcinoma History of tonsillectomy and adenoidectomy History of arthroscopy of knee History of cataract surgery Family History Mother Cardiac disorder Father Hypertension Denies family history of Ovarian cancer Prostate cancer Myocardial infarction Breast cancer Colorectal cancer Social History Smoking Status: Never smoker Tobacco Type: Cigarettes Second Hand Exposure: No; Do You Dip or Chew Tobacco: No; Hx Alcohol Use: No Hx Substance Use: No Preferred Language: Japanese Communication Ability: Effective Visual Impairment: No Limitations Hearing Ability: Normal 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: No Beliefs That Will Affect Care: None marital status: / Current Living Situation: Alone current occupational status: employed current occupation: [id number] How many Children do You have: 3 Feels Safe at Home: Yes Childhood Exposure to Second-Hand Smoke: No Diet: regular Diet Comment: regular Dental Care, Regularly: Yes Physical Activity Frequency: Does not Exercise Seatbelt Use: always Sunscreen Use: Yes Assistive Devices: Walker Allergies Allergies Allergy/AdvReac Type Severity Reaction Status Date / Time Sulfa (Sulfonamide Allergy Severe rash Verified 12/01/23 21:29 Antibiotics) latex Allergy Intermediate Rash Verified 12/01/23 21:29 Penicillins Allergy Intermediate Rash, Verified 12/01/23 21:29 heart palpitations cephalexin AdvReac Intermediate Diarrhea Verified 12/01/23 21:29 Home Meds Home Medications Medication Instructions Recorded Confirmed dronedarone 400 mg tablet (Multaq) 400 mg PO BID 06/19/18 12/01/23 metoprolol succinate 50 mg 50 mg PO QAM 06/19/18 12/01/23 tablet,extended release 24 hr (Toprol XL) multivitamin 1 tab PO QAM 06/19/18 12/01/23 nitroglycerin 0.4 mg sublingual 0.4 mg sublingual Q5M PRN Chest 06/19/18 12/01/23 tablet (Nitrostat) Pain biotin 10 mg tablet 10 mg PO QAM 04/05/19 12/01/23 acetaminophen 500 mg tablet 1,000 mg PO Q6H PRN Pain 11/12/22 02/12/24 (Tylenol Extra Strength) cholecalciferol (vitamin D3) 125 125 mcg PO QAM 08/31/22 12/01/23 mcg (5,000 unit) tablet (Vitamin D3) iron,carbonyl 65 mg-vitamin C 125 1 tab PO QAM 05/05/23 12/01/23 mg tablet,delayed release (Vitron-C) warfarin 1 mg tablet (Jantoven) See Rx Instructions .Route .COMPLEX 05/05/23 12/01/23 Previous Rx's Medication Instructions Recorded Lift Chair #1 ea 09/27/22 furosemide 20 mg tablet 20 mg PO DAILY PRN edema #90 tabs 04/07/23 hydrochlorothiazide 12.5 mg tablet 12.5 mg PO QAM #90 tabs 06/16/23 lisinopril 10 mg tablet 10 mg PO QAM #90 tabs 08/14/23 Results & Data (ED) Vital Signs Vital Signs - 24 hr 12/01/23 18:29 12/01/23 18:57 12/01/23 18:57 Temperature 36.3 C L Temperature Source Oral Pulse Rate 68 60 61 Pulse Rate from SpO2 Sensor 60 Respiratory Rate 18 23 Respiratory Effort / Characteristics Non-Labored Spontaneous Respiratory Depth Normal Respiratory Pattern Regular Blood Pressure 115/56 L Blood Pressure Mean 75 Blood Pressure Position Lying Pulse Oximetry 98 98 Oxygen Delivery Method Room Air Sepsis Recent Fever Within 48 Hours No Sepsis New/Unexplained Change in Mental Status No Sepsis Action Taken by Nursing No Action Required 12/01/23 19:00 12/01/23 19:02 12/01/23 19:02 Temperature Temperature Source Pulse Rate 61 61 Pulse Rate from SpO2 Sensor 61 Respiratory Rate 24 24 Respiratory Effort / Characteristics Respiratory Depth Respiratory Pattern Blood Pressure 71/38 L Blood Pressure Mean 48 Blood Pressure Position Pulse Oximetry 91 Oxygen Delivery Method Sepsis Recent Fever Within 48 Hours Sepsis New/Unexplained Change in Mental Status Sepsis Action Taken by Nursing 12/01/23 19:05 12/01/23 19:05 12/01/23 19:07 Temperature Temperature Source Pulse Rate 60 Pulse Rate from SpO2 Sensor 60 Respiratory Rate 21 Respiratory Effort / Characteristics Respiratory Depth Respiratory Pattern Blood Pressure 70/39 L 87/39 L Blood Pressure Mean 45 50 Blood Pressure Position Pulse Oximetry 82 L Oxygen Delivery Method Sepsis Recent Fever Within 48 Hours Sepsis New/Unexplained Change in Mental Status Sepsis Action Taken by Nursing 12/01/23 19:07 12/01/23 19:08 12/01/23 19:08 Temperature Temperature Source Pulse Rate 60 60 Pulse Rate from SpO2 Sensor 60 60 Respiratory Rate 22 21 Respiratory Effort / Characteristics Respiratory Depth Respiratory Pattern Blood Pressure 74/46 L Blood Pressure Mean 51 Blood Pressure Position Pulse Oximetry 100 99 Oxygen Delivery Method Sepsis Recent Fever Within 48 Hours Sepsis New/Unexplained Change in Mental Status Sepsis Action Taken by Nursing 12/01/23 19:10 12/01/23 19:11 12/01/23 19:11 Temperature Temperature Source Pulse Rate 60 60 Pulse Rate from SpO2 Sensor 60 60 Respiratory Rate 22 22 Respiratory Effort / Characteristics Respiratory Depth Respiratory Pattern Blood Pressure 86/40 L Blood Pressure Mean 58 Blood Pressure Position Pulse Oximetry 100 97 Oxygen Delivery Method Sepsis Recent Fever Within 48 Hours Sepsis New/Unexplained Change in Mental Status Sepsis Action Taken by Nursing 12/01/23 19:15 12/01/23 19:15 12/01/23 19:17 Temperature Temperature Source Pulse Rate 60 60 Pulse Rate from SpO2 Sensor 60 60 Respiratory Rate 18 21 Respiratory Effort / Characteristics Respiratory Depth Respiratory Pattern Blood Pressure 80/39 L Blood Pressure Mean 50 Blood Pressure Position Pulse Oximetry 99 99 Oxygen Delivery Method Sepsis Recent Fever Within 48 Hours Sepsis New/Unexplained Change in Mental Status Sepsis Action Taken by Nursing 12/01/23 19:17 12/01/23 19:20 12/01/23 19:20 Temperature Temperature Source Pulse Rate 60 Pulse Rate from SpO2 Sensor 61 Respiratory Rate 26 H Respiratory Effort / Characteristics Respiratory Depth Respiratory Pattern Blood Pressure 99/45 L 93/45 L Blood Pressure Mean 56 67 Blood Pressure Position Pulse Oximetry 99 Oxygen Delivery Method Sepsis Recent Fever Within 48 Hours Sepsis New/Unexplained Change in Mental Status Sepsis Action Taken by Nursing 12/01/23 19:21 12/01/23 19:21 12/01/23 19:25 Temperature Temperature Source Pulse Rate 60 Pulse Rate from SpO2 Sensor 60 Respiratory Rate 20 Respiratory Effort / Characteristics Respiratory Depth Respiratory Pattern Blood Pressure 100/53 L 103/52 L Blood Pressure Mean 66 66 Blood Pressure Position Pulse Oximetry 98 Oxygen Delivery Method Sepsis Recent Fever Within 48 Hours Sepsis New/Unexplained Change in Mental Status Sepsis Action Taken by Nursing 12/01/23 19:25 12/01/23 19:30 12/01/23 19:30 Temperature Temperature Source Pulse Rate 60 66 Pulse Rate from SpO2 Sensor 60 63 Respiratory Rate 21 18 Respiratory Effort / Characteristics Respiratory Depth Respiratory Pattern Blood Pressure 106/68 Blood Pressure Mean 86 Blood Pressure Position Pulse Oximetry 99 99 Oxygen Delivery Method Sepsis Recent Fever Within 48 Hours Sepsis New/Unexplained Change in Mental Status Sepsis Action Taken by Nursing 12/01/23 19:35 12/01/23 19:35 12/01/23 19:50 Temperature Temperature Source Pulse Rate 66 Pulse Rate from SpO2 Sensor 64 Respiratory Rate 18 Respiratory Effort / Characteristics Respiratory Depth Respiratory Pattern Blood Pressure 117/56 L 110/48 L Blood Pressure Mean 84 88 Blood Pressure Position Pulse Oximetry 97 Oxygen Delivery Method Sepsis Recent Fever Within 48 Hours Sepsis New/Unexplained Change in Mental Status Sepsis Action Taken by Nursing 12/01/23 19:50 12/01/23 19:54 12/01/23 19:55 Temperature Temperature Source Pulse Rate 66 67 Pulse Rate from SpO2 Sensor 66 Respiratory Rate 20 20 Respiratory Effort / Characteristics Respiratory Depth Respiratory Pattern Blood Pressure 112/61 Blood Pressure Mean 95 Blood Pressure Position Pulse Oximetry 98 Oxygen Delivery Method Sepsis Recent Fever Within 48 Hours Sepsis New/Unexplained Change in Mental Status Sepsis Action Taken by Nursing 12/01/23 20:07 12/01/23 20:10 12/01/23 20:10 Temperature Temperature Source Pulse Rate 61 Pulse Rate from SpO2 Sensor 61 Respiratory Rate 18 Respiratory Effort / Characteristics Respiratory Depth Respiratory Pattern Blood Pressure 121/50 L 118/60 Blood Pressure Mean 85 80 Blood Pressure Position Pulse Oximetry 99 Oxygen Delivery Method Sepsis Recent Fever Within 48 Hours Sepsis New/Unexplained Change in Mental Status Sepsis Action Taken by Nursing 12/01/23 20:15 12/01/23 20:15 12/01/23 20:20 Temperature Temperature Source Pulse Rate 60 Pulse Rate from SpO2 Sensor 60 Respiratory Rate 18 Respiratory Effort / Characteristics Respiratory Depth Respiratory Pattern Blood Pressure 114/50 L 107/51 L Blood Pressure Mean 79 76 Blood Pressure Position Pulse Oximetry 98 Oxygen Delivery Method Sepsis Recent Fever Within 48 Hours Sepsis New/Unexplained Change in Mental Status Sepsis Action Taken by Nursing 12/01/23 20:20 12/01/23 20:25 12/01/23 20:25 Temperature Temperature Source Pulse Rate 61 62 Pulse Rate from SpO2 Sensor 63 62 Respiratory Rate 19 23 Respiratory Effort / Characteristics Respiratory Depth Respiratory Pattern Blood Pressure 106/52 L Blood Pressure Mean 71 Blood Pressure Position Pulse Oximetry 99 99 Oxygen Delivery Method Sepsis Recent Fever Within 48 Hours Sepsis New/Unexplained Change in Mental Status Sepsis Action Taken by Nursing 12/01/23 20:30 12/01/23 20:30 12/01/23 20:35 Temperature Temperature Source Pulse Rate 62 71 Pulse Rate from SpO2 Sensor 62 71 Respiratory Rate 24 20 Respiratory Effort / Characteristics Respiratory Depth Respiratory Pattern Blood Pressure 96/58 L Blood Pressure Mean 62 Blood Pressure Position Pulse Oximetry 99 99 Oxygen Delivery Method Sepsis Recent Fever Within 48 Hours Sepsis New/Unexplained Change in Mental Status Sepsis Action Taken by Nursing 12/01/23 20:35 12/01/23 20:40 12/01/23 20:40 Temperature Temperature Source Pulse Rate 68 Pulse Rate from SpO2 Sensor 71 Respiratory Rate 25 H Respiratory Effort / Characteristics Respiratory Depth Respiratory Pattern Blood Pressure 127/52 L 125/75 Blood Pressure Mean 84 88 Blood Pressure Position Pulse Oximetry 98 Oxygen Delivery Method Sepsis Recent Fever Within 48 Hours Sepsis New/Unexplained Change in Mental Status Sepsis Action Taken by Nursing 12/01/23 20:45 12/01/23 20:45 12/01/23 20:50 Temperature Temperature Source Pulse Rate 71 71 Pulse Rate from SpO2 Sensor 72 66 Respiratory Rate 21 16 Respiratory Effort / Characteristics Respiratory Depth Respiratory Pattern Blood Pressure 123/64 Blood Pressure Mean 90 Blood Pressure Position Pulse Oximetry 100 99 Oxygen Delivery Method Sepsis Recent Fever Within 48 Hours Sepsis New/Unexplained Change in Mental Status Sepsis Action Taken by Nursing 12/01/23 20:50 12/01/23 20:55 12/01/23 20:55 Temperature Temperature Source Pulse Rate 65 Pulse Rate from SpO2 Sensor 67 Respiratory Rate 27 H Respiratory Effort / Characteristics Respiratory Depth Respiratory Pattern Blood Pressure 118/49 L 99/56 L Blood Pressure Mean 72 67 Blood Pressure Position Pulse Oximetry 99 Oxygen Delivery Method Sepsis Recent Fever Within 48 Hours Sepsis New/Unexplained Change in Mental Status Sepsis Action Taken by Nursing 12/01/23 21:00 12/01/23 21:00 12/01/23 21:05 Temperature Temperature Source Pulse Rate 67 Pulse Rate from SpO2 Sensor 63 Respiratory Rate 9 L Respiratory Effort / Characteristics Respiratory Depth Respiratory Pattern Blood Pressure 110/50 L 105/47 L Blood Pressure Mean 69 62 Blood Pressure Position Pulse Oximetry 97 Oxygen Delivery Method Sepsis Recent Fever Within 48 Hours Sepsis New/Unexplained Change in Mental Status Sepsis Action Taken by Nursing 12/01/23 21:05 12/01/23 21:10 12/01/23 21:10 Temperature Temperature Source Pulse Rate 61 70 Pulse Rate from SpO2 Sensor 61 73 Respiratory Rate 19 19 Respiratory Effort / Characteristics Respiratory Depth Respiratory Pattern Blood Pressure 120/58 L Blood Pressure Mean 77 Blood Pressure Position Pulse Oximetry 100 100 Oxygen Delivery Method Sepsis Recent Fever Within 48 Hours Sepsis New/Unexplained Change in Mental Status Sepsis Action Taken by Nursing 12/01/23 21:15 12/01/23 21:15 12/01/23 21:20 Temperature Temperature Source Pulse Rate 73 Pulse Rate from SpO2 Sensor 74 Respiratory Rate 22 Respiratory Effort / Characteristics Respiratory Depth Respiratory Pattern Blood Pressure 112/60 101/66 Blood Pressure Mean 90 88 Blood Pressure Position Pulse Oximetry 97 Oxygen Delivery Method Sepsis Recent Fever Within 48 Hours Sepsis New/Unexplained Change in Mental Status Sepsis Action Taken by Nursing 12/01/23 21:20 12/01/23 21:25 12/01/23 21:25 Temperature Temperature Source Pulse Rate 75 73 Pulse Rate from SpO2 Sensor 74 74 Respiratory Rate 24 20 Respiratory Effort / Characteristics Respiratory Depth Respiratory Pattern Blood Pressure 127/70 Blood Pressure Mean 88 Blood Pressure Position Pulse Oximetry 99 99 Oxygen Delivery Method Sepsis Recent Fever Within 48 Hours Sepsis New/Unexplained Change in Mental Status Sepsis Action Taken by Nursing 12/01/23 21:30 12/01/23 21:30 12/01/23 21:35 Temperature Temperature Source Pulse Rate 67 Pulse Rate from SpO2 Sensor 73 Respiratory Rate 17 Respiratory Effort / Characteristics Respiratory Depth Respiratory Pattern Blood Pressure 115/52 L 104/49 L Blood Pressure Mean 67 60 Blood Pressure Position Pulse Oximetry 99 Oxygen Delivery Method Sepsis Recent Fever Within 48 Hours Sepsis New/Unexplained Change in Mental Status Sepsis Action Taken by Nursing 12/01/23 21:35 12/01/23 21:39 12/01/23 21:39 Temperature Temperature Source Pulse Rate 70 60 Pulse Rate from SpO2 Sensor 65 60 Respiratory Rate 17 18 Respiratory Effort / Characteristics Respiratory Depth Respiratory Pattern Blood Pressure 82/43 L Blood Pressure Mean 63 Blood Pressure Position Pulse Oximetry 99 100 Oxygen Delivery Method Sepsis Recent Fever Within 48 Hours Sepsis New/Unexplained Change in Mental Status Sepsis Action Taken by Nursing 12/01/23 21:40 12/01/23 21:40 12/01/23 21:45 Temperature Temperature Source Pulse Rate 60 Pulse Rate from SpO2 Sensor 60 Respiratory Rate 20 Respiratory Effort / Characteristics Respiratory Depth Respiratory Pattern Blood Pressure 97/43 L 86/41 L Blood Pressure Mean 71 61 Blood Pressure Position Pulse Oximetry 98 Oxygen Delivery Method Sepsis Recent Fever Within 48 Hours Sepsis New/Unexplained Change in Mental Status Sepsis Action Taken by Nursing 12/01/23 21:45 12/01/23 21:49 12/01/23 21:49 Temperature Temperature Source Pulse Rate 60 60 Pulse Rate from SpO2 Sensor 60 61 Respiratory Rate 24 19 Respiratory Effort / Characteristics Respiratory Depth Respiratory Pattern Blood Pressure 85/46 L Blood Pressure Mean 52 Blood Pressure Position Pulse Oximetry 99 99 Oxygen Delivery Method Sepsis Recent Fever Within 48 Hours Sepsis New/Unexplained Change in Mental Status Sepsis Action Taken by Nursing Laboratory Data 12/02/23 16:34 12/02/23 03:10 Lab Results 12/01/23 12/01/23 12/01/23 Range/Units 18:59 19:18 20:42 WBC 6.81 (4.8-10.8) K/ul RBC 2.56 L (4.20-5.40) M/uL Hgb 8.1 L (12.0-16.0) g/dl POC Hgb 7.5 L (12.0-16.0) g/dl Hct 24.4 L (37.0-47.0) % POC Hct 22 L (37-47) % MCV 95.3 (80.0-100.0) fL MCH 31.6 (25.0-34.0) pg MCHC 33.2 (32.0-36.0) g/dL RDW Std Deviation 53.6 H (36.4-46.3) fL RDW Coeff of Caterina 15.3 H (11.5-14.5) % Plt Count 168 (130-400) K/uL MPV 10.2 (9.4-12.4) fL Immature Gran % (Auto) 0.6 % Neut % (Auto) 70.2 % Lymph % (Auto) 15.6 % [place] % (Auto) 12.0 % Eos % (Auto) 0.9 % Baso % (Auto) 0.7 % Neut # (Auto) 4.78 (1.40-6.50) K/uL Lymph # (Auto) 1.06 L (1.20-3.40) K/uL [place] # (Auto) 0.82 H (0.11-0.59) K/uL Eos # (Auto) 0.06 (0.00-0.50) K/uL Baso # (Auto) 0.05 (0.00-0.20) K/uL Immature Gran # (Auto) 0.04 (0.01-0.20) K/uL PT 25.1 H (9.0-12.0) Seconds INR 2.4 H (0.9-1.1) POC Sodium 138 (135-144) mmol/L Sodium 137 (136-145) mmol/L POC Potassium 5.8 H (3.3-5.0) mmol/L Potassium 5.7 H (3.5-5.1) mmol/L POC Chloride 108 (101-112) mmol/L Chloride 110 H (98-107) mmol/L Carbon Dioxide 21 (21-32) mmol/L POC Total CO2 20 L (24-31) mmol/L Anion Gap 6 (3-11) POC Anion Gap 17.0 (16-25) mmol/L POC BUN 107 H* (7-18) mg/dl BUN 98 H (6-23) mg/dl Creatinine 1.13 (0.6-1.2) mg/dl POC Creatinine 1.2 (0.6-1.3) mg/dl Est Cr Clr Drug Dosing 40.4 ml/min Est GFR ( Amer) 50.6 ml/min Est GFR (Non-Af Amer) 43.7 ml/min BUN/Creatinine Ratio 86.7 H (10-20) Glucose 116 H (70-99(Fasting)) mg/dl POC Glucose (other) 117 H (70-99) mg/dl Calcium 8.1 L (8.6-10.3) mg/dl POC Ioniz Calcium Mary Grace 1.18 (1.12-1.32) mmol/l Magnesium 1.9 (1.7-2.4) mg/dl Total Bilirubin 0.6 (0.2-1.0) mg/dl AST 13 (13-39) U/L ALT 14 (7-52) U/L Alkaline Phosphatase 64 (34-104) U/L Troponin I High Sens 5.1 (0-14) pg/ml Total Protein 5.5 L (6.0-8.3) gm/dl Albumin 3.1 L (3.4-5.0) gm/dl Globulin 2.4 L (2.5-4.0) gm/dl Albumin/Globulin Ratio 1.3 (0.9-2) Lipase 26 (11-82) U/L TSH 0.918 (0.300-4.500) uIu/ml Blood Type O Positive Blood Type Recheck Antibody Screen NEGATIVE Crossmatch See Detail 12/01/23 Range/Units 20:55 WBC (4.8-10.8) K/ul RBC (4.20-5.40) M/uL Hgb (12.0-16.0) g/dl POC Hgb (12.0-16.0) g/dl Hct (37.0-47.0) % POC Hct (37-47) % MCV (80.0-100.0) fL MCH (25.0-34.0) pg MCHC (32.0-36.0) g/dL RDW Std Deviation (36.4-46.3) fL RDW Coeff of Caterina (11.5-14.5) % Plt Count (130-400) K/uL MPV (9.4-12.4) fL Immature Gran % (Auto) % Neut % (Auto) % Lymph % (Auto) % [place] % (Auto) % Eos % (Auto) % Baso % (Auto) % Neut # (Auto) (1.40-6.50) K/uL Lymph # (Auto) (1.20-3.40) K/uL [place] # (Auto) (0.11-0.59) K/uL Eos # (Auto) (0.00-0.50) K/uL Baso # (Auto) (0.00-0.20) K/uL Immature Gran # (Auto) (0.01-0.20) K/uL PT (9.0-12.0) Seconds INR (0.9-1.1) POC Sodium (135-144) mmol/L Sodium (136-145) mmol/L POC Potassium (3.3-5.0) mmol/L Potassium (3.5-5.1) mmol/L POC Chloride (101-112) mmol/L Chloride (98-107) mmol/L Carbon Dioxide (21-32) mmol/L POC Total CO2 (24-31) mmol/L Anion Gap (3-11) POC Anion Gap (16-25) mmol/L POC BUN (7-18) mg/dl BUN (6-23) mg/dl Creatinine (0.6-1.2) mg/dl POC Creatinine (0.6-1.3) mg/dl Est Cr Clr Drug Dosing ml/min Est GFR ( Amer) ml/min Est GFR (Non-Af Amer) ml/min BUN/Creatinine Ratio (10-20) Glucose (70-99(Fasting)) mg/dl POC Glucose (other) (70-99) mg/dl Calcium (8.6-10.3) mg/dl POC Ioniz Calcium Mary Grace (1.12-1.32) mmol/l Magnesium (1.7-2.4) mg/dl Total Bilirubin (0.2-1.0) mg/dl AST (13-39) U/L ALT (7-52) U/L Alkaline Phosphatase (34-104) U/L Troponin I High Sens (0-14) pg/ml Total Protein (6.0-8.3) gm/dl Albumin (3.4-5.0) gm/dl Globulin (2.5-4.0) gm/dl Albumin/Globulin Ratio (0.9-2) Lipase (11-82) U/L TSH (0.300-4.500) uIu/ml Blood Type Blood Type Recheck O Positive Antibody Screen Crossmatch Administered Medications Dronedarone (Dronedarone Hcl 400 Mg Tab) 400 mg PO BID [facility] Stop: 01/01/24 08:59 Last Admin: 12/02/23 19:48 Dose: 400 mg Documented By: Admin: 12/02/23 08:50 Dose: 400 mg Documented By: DORCAS Pantoprazole Sodium 40 mg/ (Dextrose) 100 mls @ 20 mls/hr IV Q5H SHAHENE Stop: 12/31/23 23:16 Last Admin: 12/02/23 22:17 Dose: 8 mg/hr, 20 mls/hr Documented By: Infusion: 12/02/23 19:04 Dose: Infused Documented By: Admin: 12/02/23 14:04 Dose: 8 mg/hr, 20 mls/hr Documented By: Infusion: 12/02/23 13:51 Dose: Infused Documented By: Admin: 12/02/23 08:51 Dose: 8 mg/hr, 20 mls/hr Documented By: Infusion: 12/02/23 08:51 Dose: Infused Documented By: Admin: 12/02/23 05:36 Dose: 8 mg/hr, 20 mls/hr Documented By: [id number] Infusion: 12/02/23 05:36 Dose: Infused Documented By: [id number] Admin: 12/02/23 01:36 Dose: 8 mg/hr, 20 mls/hr Documented By: TU Acetaminophen (Ofirmev) 1,000 mg in 100 mls @ 400 mls/hr IV Q8H PRN PRN Reason: Pain Stop: 12/05/23 03:19 Last Infusion: 12/02/23 22:49 Dose: Infused Documented By: Admin: 12/02/23 22:16 Dose: 400 mls/hr Documented By: Infusion: 12/02/23 04:26 Dose: Infused Documented By: [id number] Admin: 12/02/23 04:10 Dose: 400 mls/hr Documented By: [id number] Parenteral Electrolytes (Plasma-Lyte A Ph 7.4) 1,000 mls @ 80 mls/hr IV .[id number] SHAHEEN Stop: 01/01/24 05:14 Last Admin: 12/02/23 18:46 Dose: 80 mls/hr Documented By: Infusion: 12/02/23 18:46 Dose: Infused Documented By: Admin: 12/02/23 06:35 Dose: 80 mls/hr Documented By: [id number] Discontinued Medications Ephedrine Sulfate (Ephedrine Sulfate 50 Mg/5 Ml Syr) Confirm Administered Dose 50 mg .ROUTE .STK-MED ONE Stop: 12/02/23 13:35 Last Admin: 12/02/23 14:06 Dose: Not Given Documented By: DORCAS Glycopyrrolate (Glycopyrrolate 0.2 Mg/Ml Vial) Confirm Administered Dose 0.4 mg .ROUTE .STK-MED ONE Stop: 12/02/23 12:56 Last Admin: 12/02/23 14:05 Dose: Not Given Documented By: DORCAS Sodium Chloride (Nss) 1,000 mls @ 999 mls/hr IV .Q1H1M ONE Stop: 12/01/23 20:15 Last Infusion: 12/01/23 21:30 Dose: Infused Documented By: Admin: 12/01/23 19:12 Dose: 999 mls/hr Documented By: EMILIANO Pantoprazole Sodium 40 mg/ (Syringe) 10 mls @ 5 mls/min IV NOW ONE Stop: 12/01/23 19:51 Last Admin: 12/01/23 20:44 Dose: 5 mls/min Documented By: JOSIE Sodium Chloride (Nss) 1,000 mls @ 125 mls/hr IV .Q8H SHAHEEN Stop: 12/31/23 20:29 Last Infusion: 12/01/23 22:48 Dose: Infused Documented By: Admin: 12/01/23 20:48 Dose: 125 mls/hr Documented By: JOSIE Phytonadione 5 mg/ Dextrose 50.5 mls @ 101 mls/hr IV ONE ONE Stop: 12/01/23 20:48 Last Infusion: 12/01/23 21:30 Dose: Infused Documented By: Admin: 12/01/23 20:48 Dose: 101 mls/hr Documented By: JOSIE Pantoprazole Sodium 80 mg/ (Dextrose) 120 mls @ 480 mls/hr IV NOW ONE Stop: 12/01/23 23:31 Last Infusion: 12/02/23 01:46 Dose: Infused Documented By: Admin: 12/02/23 00:42 Dose: 480 mls/hr Documented By: TU Octreotide Acetate 50 mcg/ (Syringe) 10 mls @ 3 mls/min IV ONE STA Stop: 12/01/23 23:20 Last Admin: 12/02/23 01:37 Dose: 3 mls/min Documented By: TU Octreotide Acetate 500 mcg/ (Sodium Chloride) 100.5 mls @ 10.05 mls/hr IV .Q10H SHAHEEN Stop: 12/31/23 23:16 Last Infusion: 12/02/23 03:11 Dose: Infused Documented By: [id number] Infusion: 12/02/23 02:30 Dose: 0 mcg/hr, 0 mls/hr Documented By: [id number] Admin: 12/02/23 01:37 Dose: 50 mcg/hr, 10.1 mls/hr Documented By: TU Ioversol (Optiray 320 500ml) 85 ml IV ONCE ONE Stop: 12/01/23 20:03 Last Admin: 12/01/23 20:02 Dose: 85 ml Documented By: DARIEL Lidocaine HCl (Lidocaine 2% 2 Ml Vial/Amp(20mg/Ml)) Confirm Administered Dose 4 ml INFIL .STK-MED ONE Stop: 12/02/23 12:56 Last Admin: 12/02/23 14:05 Dose: Not Given Documented By: DORCAS Ondansetron HCl (Ondansetron Inj 2 Mg/Ml 2 Ml Vial) Confirm Administered Dose 4 mg .ROUTE .Electronic Brailler-JRapid ONE Stop: 12/02/23 12:56 Last Admin: 12/02/23 14:05 Dose: Not Given Documented By: DORCAS Propofol (Propofol Iv Emulsion 10 Mg/Ml 20 Ml Vial) Confirm Administered Dose 200 mg IV .STK-MED ONE Stop: 12/02/23 12:56 Last Admin: 12/02/23 14:05 Dose: Not Given Documented By: DORCAS Imaging Data Radiologist's Impression: Abdomen/Pelvis CT 12/01/23 19:41 Exam(s): CT ABDOMEN + PELVIS With Contrast IV Amt: cc EXAM: CT Abdomen and Pelvis With Intravenous Contrast CLINICAL HISTORY: Reason for exam: gi bleed. TECHNIQUE: Axial computed tomography images of the abdomen and pelvis with intravenous contrast. CTDI is 27.65 mGy and DLP is 1259.84 mGy-cm. Automated exposure control was utilized for the study. A dose lowering technique was utilized adhering to the principles of ALARA. CONTRAST: Patient received cc of IV contrast COMPARISON: No relevant prior studies available. FINDINGS: Lung bases: Unremarkable. No mass. No consolidation. ABDOMEN: Liver: Hepatic steatosis. Gallbladder and bile ducts: Cholecystectomy. No ductal dilation. Pancreas: Unremarkable. No mass. No ductal dilation. Spleen: Unremarkable. No splenomegaly. Adrenals: Unremarkable. No mass. Kidneys and ureters: Multiple stones in the RIGHT renal pelvis, which measure approximately 2.3 x 1.0 cm in aggregate size. No hydronephrosis. Stomach and bowel: Diverticulosis, without acute diverticulitis. No small bowel obstruction. No free intraperitoneal air. PELVIS: Appendix: No findings to suggest acute appendicitis. Bladder: Unremarkable. Normal urinary bladder. Reproductive: Unremarkable as visualized. ABDOMEN and PELVIS: Intraperitoneal space: Unremarkable. No free air. No significant fluid collection. Bones/joints: Degenerative changes of the spine. No acute fracture. No dislocation. Soft tissues: Unremarkable. Vasculature: Atherosclerotic changes of the aorta. No abdominal aortic aneurysm. Lymph nodes: Unremarkable. No enlarged lymph nodes. IMPRESSION: 1. Hepatic steatosis. 2. Cholecystectomy. 3. Multiple stones in the RIGHT renal pelvis, which measure approximately 2.3 x 1.0 cm in aggregate size. 4. Diverticulosis, without acute diverticulitis. No small bowel obstruction. No free intraperitoneal air. Electronically signed by: Homar Pereira MD 12/01/23 20:27 PM Discharge Plan Visit Data Chief Complaint: Weakness Stated Complaint: WEAKNESS/BLOODY STOOL ED Provider: Isabela Latif Discharge Problem: Generalized weakness, Anemia, Acute GI bleeding, Hypotension Patient Disposition: Admitted As Inpatient Discharge Instructions Interventions: ED Discharge Assessment Last Done: 12/01/23 23:17
[2023-12-01 19:55] LABS: Thyroid Stimulating Hormone 0.918 uIu/ml (0.300-4.500)
[2023-12-01 20:01] LABS: INR 2.4 (0.9-1.1); Prothrombin Time 25.1 Seconds (9.0-12.0)
[2023-12-01] MEDS: OPTIRAY 320 500ml IV ONE (20:02)
--- NOTE | 2023-12-01 20:23 | Communication Note ---
Date of Service: December 01, 2023 I personally obtained a history from and examined the patient. Refer to Dr. Latif's note for further details. Resident Activity Tracking Resident Involvement: Resident Care Provided Care Provided: Adult ED
--- NOTE | 2023-12-01 20:28 | CT Scan Report ---
Exam(s): CT ABDOMEN + PELVIS With Contrast IV Amt: cc EXAM: CT Abdomen and Pelvis With Intravenous Contrast CLINICAL HISTORY: Reason for exam: gi bleed. TECHNIQUE: Axial computed tomography images of the abdomen and pelvis with intravenous contrast. CTDI is 27.65 mGy and DLP is 1259.84 mGy-cm. Automated exposure control was utilized for the study. A dose lowering technique was utilized adhering to the principles of ALARA. CONTRAST: Patient received cc of IV contrast COMPARISON: No relevant prior studies available. FINDINGS: Lung bases: Unremarkable. No mass. No consolidation. ABDOMEN: Liver: Hepatic steatosis. Gallbladder and bile ducts: Cholecystectomy. No ductal dilation. Pancreas: Unremarkable. No mass. No ductal dilation. Spleen: Unremarkable. No splenomegaly. Adrenals: Unremarkable. No mass. Kidneys and ureters: Multiple stones in the RIGHT renal pelvis, which measure approximately 2.3 x 1.0 cm in aggregate size. No hydronephrosis. Stomach and bowel: Diverticulosis, without acute diverticulitis. No small bowel obstruction. No free intraperitoneal air. PELVIS: Appendix: No findings to suggest acute appendicitis. Bladder: Unremarkable. Normal urinary bladder. Reproductive: Unremarkable as visualized. ABDOMEN and PELVIS: Intraperitoneal space: Unremarkable. No free air. No significant fluid collection. Bones/joints: Degenerative changes of the spine. No acute fracture. No dislocation. Soft tissues: Unremarkable. Vasculature: Atherosclerotic changes of the aorta. No abdominal aortic aneurysm. Lymph nodes: Unremarkable. No enlarged lymph nodes. IMPRESSION: 1. Hepatic steatosis. 2. Cholecystectomy. 3. Multiple stones in the RIGHT renal pelvis, which measure approximately 2.3 x 1.0 cm in aggregate size. 4. Diverticulosis, without acute diverticulitis. No small bowel obstruction. No free intraperitoneal air. Electronically signed by: Homar Pereira MD 12/01/23 20:27 PM
[2023-12-01] MEDS: PANTOprazole 40 MG in SYRINGE 0 ML IV ONE (20:44)
[2023-12-01] MEDS: PHYTONADIONE 5 MG in DEXTROSE 5% 50 ML IV ONE (20:48)
[2023-12-01] MEDS: SODIUM CHLORIDE 0.9% 1,000 ML IV SCH (20:48)
[2023-12-01] MEDS ORDERED: SODIUM CHLORIDE 0.9% 250 ML IV PRN (21:48)
--- NOTE | 2023-12-01 21:58 | History & Physical Report ---
Date of Service December 01, 2023 Assessment & Plan (1) Acute GI bleeding: Plan: 88yo female with atrial fibrillation on Coumadin anticoagulation presenting with multiple episodes of melena starting this AM 12/01/23. Patient with hypotension in the ER, improved briefly with IV NSS. Continue to have melena with drops in blood pressure to the 70's and near syncope. Suspect UGI source given elevation in BUN, presence of melena. Also with diverticulosis noted on CT imaging. Patient reassessed multiple times during her time in the ER. -Admit to MICU -Keep NPO -Maintain 2 large bore PIVs -Protonix bolus and gtt -Octreotide bolus and gtt for now/short term - patient with no underlying liver disease known -CBC q 6 hours - transfuse for ongoing blood loss, symptomatic anemia or Hgb <7 -Zofran PRN nausea -Vitamin K 5mg IV given in ER -Will give FFP x 1u -Continue to hold Coumadin -Hold home antihypertensives - HCTZ, Lisinopril, Metoprolol and Nitro -GI consult appreciated (2) Atrial fibrillation: Plan: Patient with pacer in place. Anticoagulated on Coumadin - INR=2.4. Vitamin K 5mg IV given in setting of acute GIB -Hold Coumadin -Continue Dronedarone -FFP x 1u -Repeat INR in AM (3) Hypertension: Plan: Hypotensive in setting of acute GIB, hemorrhagic shock. Improving with administration of IVF and PRBcs -Hold antihypertensives -Continue resuscitation with blood products, crystalloid as needed -Monitor BP F/E/N - Transfusion as needed. Electrolytes WNL. NPO for now Ppx - SCDs Code- Full code per discussion with patient and daughter Dispo - Admit to MICU POC - Isabela Floyd - daughter - [phone] History of Present Illness Chief Complaint: melena Primary Care Provider: Kelvin Vee DO Radha Floyd is a pleasant 88yo female with history of atrial fibrillation with pacer in place, anticoagulated on Coumadin (INR=2.4), HTN presenting with melena. Patient was in her usual state of health yesterday. This AM 12/01/23 she woke up with a tingling sensation in her legs. She then proceeded to have 4 loose, black bowel movements throughout the day. Her daughter reports that the BM was black and maroon in color and possibly with some clots in the bowl. Patient hypotensive on arrival with BP of 80/39. She was given NSS with improvement. She had several episodes of melena in the ER accompanied by drop in BP to the 70's, pallor, near syncope. ER Course: NSS x 2L Vitamin K 5mg IV Protonix 40mg IV PRBC x 1u Allergies Allergy/AdvReac Type Severity Reaction Status Date / Time Sulfa (Sulfonamide Allergy Severe rash Verified 12/01/23 21:29 Antibiotics) latex Allergy Intermediate Rash Verified 12/01/23 21:29 Penicillins Allergy Intermediate Rash, Verified 12/01/23 21:29 heart palpitations cephalexin AdvReac Intermediate Diarrhea Verified 12/01/23 21:29 Home Medications Medication Instructions Recorded Confirmed Type dronedarone 400 mg tablet (Multaq) 400 mg PO BID 06/19/18 12/01/23 History metoprolol succinate 50 mg 50 mg PO QAM 06/19/18 12/01/23 History tablet,extended release 24 hr (Toprol XL) multivitamin 1 tab PO QAM 06/19/18 12/01/23 History nitroglycerin 0.4 mg sublingual 0.4 mg sublingual Q5M PRN Chest 06/19/18 12/01/23 History tablet (Nitrostat) Pain biotin 10 mg tablet 10 mg PO QAM 04/05/19 12/01/23 History acetaminophen 500 mg tablet 1,000 mg PO Q6H PRN Pain 08/31/22 12/01/23 History (Tylenol Extra Strength) cholecalciferol (vitamin D3) 125 125 mcg PO QAM 08/31/22 12/01/23 History mcg (5,000 unit) tablet (Vitamin D3) Lift Chair #1 ea 09/27/22 12/01/23 Rx furosemide 20 mg tablet 20 mg PO DAILY PRN edema #90 tabs 04/07/23 12/01/23 Rx iron,carbonyl 65 mg-vitamin C 125 1 tab PO QAM 05/05/23 12/01/23 History mg tablet,delayed release (Vitron-C) warfarin 1 mg tablet (Jantoven) See Rx Instructions .Route .COMPLEX 05/05/23 12/01/23 History hydrochlorothiazide 12.5 mg tablet 12.5 mg PO QAM #90 tabs 06/16/23 12/01/23 Rx lisinopril 10 mg tablet 10 mg PO QAM #90 tabs 08/14/23 12/01/23 Rx Past Med/Surg History Medical History Pressure ulcer of left foot, stage 3 Encounter for pre-operative examination Venous stasis ulcer chronic BLLE. 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 Follows with René Bolck PA-C. Chronic venous insufficiency Surgical History H/O excision of mass (01/29/23) Scalp Mass Excision(Right) - Red Farfan MD, FACS Status post ablation of incompetent vein using laser History of excision of lesion (01/23/11) Wide excision lesion left lower extremity with full thickness skin graft. Dr. Farfan S/P Mohs surgery for basal cell carcinoma History of tonsillectomy and adenoidectomy History of arthroscopy of knee History of cataract surgery Family History Mother Cardiac disorder Father Hypertension Denies family history of Ovarian cancer Prostate cancer Myocardial infarction Breast cancer Colorectal cancer Social History Smoking Status: Never smoker Tobacco Type: Cigarettes Second Hand Exposure: No; Do You Dip or Chew Tobacco: No; Hx Alcohol Use: No Hx Substance Use: No Preferred Language: Mosotho Communication Ability: Effective Visual Impairment: No Limitations Hearing Ability: Normal Environmental Lead Required: No Beliefs That Will Affect Care: None marital status: / Current Living Situation: Alone current occupational status: employed current occupation: [employer] How many Children do You have: 3 Feels Safe at Home: Yes Childhood Exposure to Second-Hand Smoke: No Diet: regular Diet Comment: regular Dental Care, Regularly: Yes Physical Activity Frequency: Does not Exercise Seatbelt Use: always Sunscreen Use: Yes Assistive Devices: Denture - Upper and Walker Review of Systems Review of Systems: All systems reviewed & are unremarkable except as noted in HPI & below Physical Exam Physical Exam: General: patient resting comfortably, NAD, non-toxic in appearance, AA&O x 4 Skin: warm, dry, intact, no rashes or lesions HEENT: NC/AT, PERRL, EOMI, anicteric sclera, conjunctiva without injection, external ear normal to inspection and nontender, nares patent, moist mucus membranes, dentition intact, no oropharyngeal lesions, neck supple, trachea midline, no LAD, no thyromegaly, no JVD Heart: +S1/S2, regular, no m/r/g Lungs: equal air entry bilaterally, no rales/rhonchi/wheezes Abd: +BS, soft, NT/ND, no masses/organomegaly/ascites Ext: warm, 2+ pulses in UE/LE bilaterally, no clubbing/cyanosis or edema Neuro: nonfocal, patient AA&O x 4, speech intact, no facial droop, moving all extremities on command with equal strength 5/5 Results & Data Results & Data Vital Signs (Past 12 Hours) Vital Signs Temp Pulse Resp BP Pulse Ox O2 Del Method 12/01/23 21:49 60 19 99 12/01/23 21:49 85/46 L 12/01/23 21:45 60 24 99 12/01/23 21:45 86/41 L 12/01/23 21:40 60 20 98 12/01/23 21:40 97/43 L 12/01/23 21:39 82/43 L 12/01/23 21:39 60 18 100 12/01/23 21:35 70 17 99 12/01/23 21:35 104/49 L 12/01/23 21:30 67 17 99 12/01/23 21:30 115/52 L 12/01/23 21:25 73 20 99 12/01/23 21:25 127/70 12/01/23 21:20 75 24 99 12/01/23 21:20 101/66 12/01/23 21:15 73 22 97 02/12/24 21:15 112/60 12/01/23 21:10 70 19 100 12/01/23 21:10 120/58 L 12/01/23 21:05 61 19 100 12/01/23 21:05 105/47 L 12/01/23 21:00 67 9 L 97 12/01/23 21:00 110/50 L 12/01/23 20:55 99/56 L 12/01/23 20:55 65 27 H 99 12/01/23 20:50 118/49 L 12/01/23 20:50 71 16 99 12/01/23 20:45 71 21 100 12/01/23 20:45 123/64 12/01/23 20:40 68 25 H 98 12/01/23 20:40 125/75 12/01/23 20:35 127/52 L 12/01/23 20:35 71 20 99 12/01/23 20:30 62 24 99 12/01/23 20:30 96/58 L 12/01/23 20:25 62 23 99 12/01/23 20:25 106/52 L 12/01/23 20:20 61 19 99 12/01/23 20:20 107/51 L 12/01/23 20:15 60 18 98 12/01/23 20:15 114/50 L 12/01/23 20:10 118/60 12/01/23 20:10 61 18 99 12/01/23 20:07 121/50 L 12/01/23 19:55 112/61 12/01/23 19:54 67 20 12/01/23 19:50 66 20 98 12/01/23 19:50 110/48 L 12/01/23 19:35 117/56 L 12/01/23 19:35 66 18 97 12/01/23 19:30 66 18 99 12/01/23 19:30 106/68 12/01/23 19:25 60 21 99 12/01/23 19:25 103/52 L 12/01/23 19:21 60 20 98 12/01/23 19:21 100/53 L 12/01/23 19:20 60 26 H 99 12/01/23 19:20 93/45 L 12/01/23 19:17 99/45 L 12/01/23 19:17 60 21 99 12/01/23 19:15 60 18 99 12/01/23 19:15 80/39 L 12/01/23 19:11 86/40 L 12/01/23 19:11 60 22 97 12/01/23 19:10 60 22 100 12/01/23 19:08 74/46 L 12/01/23 19:08 60 21 99 12/01/23 19:07 60 22 100 12/01/23 19:07 87/39 L 12/01/23 19:05 60 21 82 L 12/01/23 19:05 70/39 L 12/01/23 19:02 61 24 91 12/01/23 19:02 71/38 L 12/01/23 19:00 61 24 12/01/23 18:57 61 12/01/23 18:57 60 23 98 12/01/23 18:29 36.3 C L 68 18 115/56 L 98 Room Air Laboratory Results Laboratory Results WBC 6.81 K/ul (4.8-10.8) 12/01/23 18:59 RBC 2.56 M/uL (4.20-5.40) L 12/01/23 18:59 Hgb 8.1 g/dl (12.0-16.0) L 12/01/23 18:59 POC Hgb 7.5 g/dl (12.0-16.0) L 12/01/23 19:18 Hct 24.4 % (37.0-47.0) L 12/01/23 18:59 POC Hct 22 % (37-47) L 12/01/23 19:18 MCV 95.3 fL (80.0-100.0) 12/01/23 18:59 MCH 31.6 pg (25.0-34.0) 12/01/23 18:59 MCHC 33.2 g/dL (32.0-36.0) 12/01/23 18:59 RDW Std Deviation 53.6 fL (36.4-46.3) H 12/01/23 18:59 RDW Coeff of Caterina 15.3 % (11.5-14.5) H 12/01/23 18:59 Plt Count 168 K/uL (130-400) 12/01/23 18:59 MPV 10.2 fL (9.4-12.4) 12/01/23 18:59 Immature Gran % (Auto) 0.6 % 12/01/23 18:59 Neut % (Auto) 70.2 % 12/01/23 18:59 Lymph % (Auto) 15.6 % 12/01/23 18:59 Nuckolls % (Auto) 12.0 % 12/01/23 18:59 Eos % (Auto) 0.9 % 12/01/23 18:59 Baso % (Auto) 0.7 % 12/01/23 18:59 Neut # (Auto) 4.78 K/uL (1.40-6.50) 12/01/23 18:59 Lymph # (Auto) 1.06 K/uL (1.20-3.40) L 12/01/23 18:59 Nuckolls # (Auto) 0.82 K/uL (0.11-0.59) H 12/01/23 18:59 Eos # (Auto) 0.06 K/uL (0.00-0.50) 12/01/23 18:59 Baso # (Auto) 0.05 K/uL (0.00-0.20) 12/01/23 18:59 Immature Gran # (Auto) 0.04 K/uL (0.01-0.20) 12/01/23 18:59 PT 25.1 Seconds (9.0-12.0) H 12/01/23 18:59 INR 2.4 (0.9-1.1) H 12/01/23 18:59 POC Sodium 138 mmol/L (135-144) 12/01/23 19:18 Sodium 137 mmol/L (136-145) 12/01/23 18:59 POC Potassium 5.8 mmol/L (3.3-5.0) H 12/01/23 19:18 Potassium 5.7 mmol/L (3.5-5.1) H 12/01/23 18:59 POC Chloride 108 mmol/L (101-112) 12/01/23 19:18 Chloride 110 mmol/L (98-107) H 12/01/23 18:59 Carbon Dioxide 21 mmol/L (21-32) 12/01/23 18:59 POC Total CO2 20 mmol/L (24-31) L 12/01/23 19:18 Anion Gap 6 (3-11) 02/12/24 18:59 POC Anion Gap 17.0 mmol/L (16-25) 12/01/23 19:18 POC BUN 107 mg/dl (7-18) H* 12/01/23 19:18 BUN 98 mg/dl (6-23) H 12/01/23 18:59 Creatinine 1.13 mg/dl (0.6-1.2) 12/01/23 18:59 POC Creatinine 1.2 mg/dl (0.6-1.3) 12/01/23 19:18 Est Cr Clr Drug Dosing 40.4 ml/min 12/01/23 18:59 Est GFR ( Amer) 50.6 ml/min 12/01/23 18:59 Est GFR (Non-Af Amer) 43.7 ml/min 12/01/23 18:59 BUN/Creatinine Ratio 86.7 (10-20) H 12/01/23 18:59 Glucose 116 mg/dl (70-99(Fasting)) H 12/01/23 18:59 POC Glucose (other) 117 mg/dl (70-99) H 12/01/23 19:18 Calcium 8.1 mg/dl (8.6-10.3) L 12/01/23 18:59 POC Ioniz Calcium Mary Grace 1.18 mmol/l (1.12-1.32) 12/01/23 19:18 Magnesium 1.9 mg/dl (1.7-2.4) 12/01/23 18:59 Total Bilirubin 0.6 mg/dl (0.2-1.0) 12/01/23 18:59 AST 13 U/L (13-39) 12/01/23 18:59 ALT 14 U/L (7-52) 12/01/23 18:59 Alkaline Phosphatase 64 U/L (34-104) 12/01/23 18:59 Troponin I High Sens 5.1 pg/ml (0-14) 12/01/23 18:59 Total Protein 5.5 gm/dl (6.0-8.3) L 12/01/23 18:59 Albumin 3.1 gm/dl (3.4-5.0) L 12/01/23 18:59 Globulin 2.4 gm/dl (2.5-4.0) L 12/01/23 18:59 Albumin/Globulin Ratio 1.3 (0.9-2) 12/01/23 18:59 Lipase 26 U/L (11-82) 12/01/23 18:59 TSH 0.918 uIu/ml (0.300-4.500) 12/01/23 18:59 Blood Type O Positive 12/01/23 20:42 Blood Type Recheck O Positive 12/01/23 20:55 Antibody Screen NEGATIVE 12/01/23 20:42 Crossmatch See Detail 12/01/23 20:42 Impressions Abdomen/Pelvis CT 12/01/23 19:41 Exam(s): CT ABDOMEN + PELVIS With Contrast IV Amt: cc EXAM: CT Abdomen and Pelvis With Intravenous Contrast CLINICAL HISTORY: Reason for exam: gi bleed. TECHNIQUE: Axial computed tomography images of the abdomen and pelvis with intravenous contrast. CTDI is 27.65 mGy and DLP is 1259.84 mGy-cm. Automated exposure control was utilized for the study. A dose lowering technique was utilized adhering to the principles of ALARA. CONTRAST: Patient received cc of IV contrast COMPARISON: No relevant prior studies available. FINDINGS: Lung bases: Unremarkable. No mass. No consolidation. ABDOMEN: Liver: Hepatic steatosis. Gallbladder and bile ducts: Cholecystectomy. No ductal dilation. Pancreas: Unremarkable. No mass. No ductal dilation. Spleen: Unremarkable. No splenomegaly. Adrenals: Unremarkable. No mass. Kidneys and ureters: Multiple stones in the RIGHT renal pelvis, which measure approximately 2.3 x 1.0 cm in aggregate size. No hydronephrosis. Stomach and bowel: Diverticulosis, without acute diverticulitis. No small bowel obstruction. No free intraperitoneal air. PELVIS: Appendix: No findings to suggest acute appendicitis. Bladder: Unremarkable. Normal urinary bladder. Reproductive: Unremarkable as visualized. ABDOMEN and PELVIS: Intraperitoneal space: Unremarkable. No free air. No significant fluid collection. Bones/joints: Degenerative changes of the spine. No acute fracture. No dislocation. Soft tissues: Unremarkable. Vasculature: Atherosclerotic changes of the aorta. No abdominal aortic aneurysm. Lymph nodes: Unremarkable. No enlarged lymph nodes. IMPRESSION: 1. Hepatic steatosis. 2. Cholecystectomy. 3. Multiple stones in the RIGHT renal pelvis, which measure approximately 2.3 x 1.0 cm in aggregate size. 4. Diverticulosis, without acute diverticulitis. No small bowel obstruction. No free intraperitoneal air. Electronically signed by: Homar Pereira MD 12/01/23 20:27 PM PG Care Time/CCT Total # of Minutes Spent Total Time Spent with Patient: Total time spent is greater than 50% in coordination of care (as documented) at patient's floor/unit and/or counseling patient: Coding Level of Care Code 34531 INT INP/OBS CARE 3/75MIN Diagnoses Acute GI bleeding K92.2 Atrial fibrillation, unspecified type I48.91 Atrial fibrillation type: unspecified Essential hypertension I10 Hypertension type: essential hypertension (2) Atrial fibrillation Atrial fibrillation type: unspecified Qualified Code(s): I48.91 - Unspecified atrial fibrillation (3) Hypertension Hypertension type: essential hypertension Qualified Code(s): I10 - Essential (primary) hypertension
[2023-12-01] MEDS ORDERED: ONDANSETRON INJ 2 MG/ML 2 ML VIAL IV PRN (23:17)
[2023-12-01] MEDS ORDERED: PANTOPRAZOLE BOLUS/DRIP IV STA (23:17)
[2023-12-01] MEDS ORDERED: STAT IV/IM STA (23:17)
[2023-12-02] MEDS: PANTOprazole 80 MG in DEXTROSE 5% 100 ML IV ONE (00:42)
[2023-12-02] MEDS: PANTOprazole 40 MG in DEXTROSE 5% MINI-B 100 ML IV SCH (01:36)
[2023-12-02] MEDS: OCTREOTIDE ACETATE 500 MCG in 0.9 % SODIUM CHLORIDE 100 ML IV SCH (01:37)
[2023-12-02] MEDS: OCTREOTIDE ACETATE 50 MCG in SYRINGE 9.5 ML IV STA (01:37)
[2023-12-02] MEDS ORDERED: SODIUM CHLORIDE 0.9% 250 ML IV PRN ×2 (01:49→04:09)
--- NOTE | 2023-12-02 03:05 | Critical Care Consultation ---
Date of Consultation December 02, 2023 Assessment & Plan (1) Acute GI bleeding: Impression: 88-year-old female presents to the ICU with acute GI bleed, was previously having hypotensive episodes in the emergency department with large amounts of melena. Currently she appears hemodynamically stable and is currently on Protonix drip, received 1 unit RBCs, and IV vitamin K. Plan for scope in a.m. per GI. Neuro - [facility] ICU: Negative Cardiac - Hypotensionsecondary to acute blood loss anemia. Appears to be improved following blood transfusion. No indication for vasopressor administration at this time. Will continue to hold antihypertensives and transfuse as indicated. Proximal A-fibgiven on hold due to GI bleeding. Currently sinus rhythm on monitor. She does have history of SSS status post pacemaker. Continuous monitor on telemetry for now Respiratory - No history of pulmonary disease, currently maintaining oxygen saturations on room air without respiratory distress. Will continue to monitor on pulse ox. GI - Acute GI bleedpatient with multiple episodes of melena, anticoagulation on Coumadin likely contributing. Patient did receive IV vitamin K in the emergency department. -Repeat CBC, INR and fibrinogen currently pending following 1 unit RBC transfusion. Previous hemoglobin 8.5. -Consider FFP, cryo pending result - GI consulted and plan to undergo scope this a.m. -N.p.o. - Continue Protonix drip RENAL/LYTES - Creatinine within normal limits, monitor routine BMPs and replete electrolytes as indicated - Strict I's and O's ENDO - No history of diabetes, ICU hyperglycemic protocol HEME - Acute blood loss anemiasee treatment above ID - No indication for infectious process at this time Bilateral lower extremity woundswound consult pending LINES/IV ACCESS - Bilateral large-bore peripheral IVs DVT PROPHYLAXIS - SCDs, hold anticoagulation in the setting of GI bleed Thank you for allowing us to participate in the care of this patient. Please refer to my attending physician's documentation for any further recommendations. (2) Hypotension: (3) Anemia: (4) Traumatic open wound of great toe with delayed healing: (5) Pressure ulcer of left foot, stage 3: (6) Venous ulcer of left leg: (7) Venous ulcer of right leg: (8) Hypertension: (9) Atrial fibrillation: (10) Hyperthyroidism: (11) Squamous cell carcinoma of right lower leg: Supervising Physician Co-Signing Physician Notes I saw and evaluated the patient with LORNA Jett, and agree with findings and plan as documented in the note. 88-year-old female on warfarin for A-fib who presented to hospital with hypotension and melanotic stools. Admitted to the ICU for monitoring. At the time of examination patient's map was in the 73. She was not on any vasopressors She denied any chest pain, no nausea, no vomiting, no abdominal discomfort. Last bowel movement was melanotic approximately 2-3 hours prior to me seeing her She was on pantoprazole drip Denies taking any NSAIDs. The only medication she takes for pain is Tylenol Constitutional: No acute distress HEENT: EOMI, PERRLA Respiratory system: Good air entry bilaterally, no wheeze, no rhonchi, mild crackles bilateral lower lobes CVS: S1-S2 positive, no murmurs or gallops Abdomen: Soft, nontender, nondistended, positive bowel sounds x4, obese Extremities: +2 pulses bilaterally radialis/ dorsalis pedis, no cyanosis, +1 ed abner bilateral lower extremity Neuro: Awake alert oriented x3 Psych: Normal mood and affect G/U: Positive Capone --Prophylaxis VTE: IPC GI: Protonix drip Lines: Peripheral Diet: N.p.o. Plan: In/out: +2.5 L, urine output 102 mL. Patient BUN is 102 most likely from upper GI bleed. Potassium is mildly elevated at 5.3 likely from the metabolic acidosis that she has. Will continue to monitor. She has finished 2 units of PRBC. Will repeat H&H around noon time. GI has been consulted for EGD Please note the above document was generated using voice recognition software. It may contain grammatical, syntax or spelling errors.Any formal questions or concerns about the content, text or information contained within the body of this dictation should be directly addressed to the provider for clarification. History of Present Illness Attending Physician: Alicia Luu DO History of Present Illness Patient is a 88-year-old female with past medical history of atrial fibrillation (on Eliquis), HTN, sick sinus syndrome (s/p pacemaker), venous stasis ulcers, hypothyroidism, osteomyelitis of right toe, squamous cell carcinoma, who presented to the emergency department earlier this evening with complaints of dark tarry stools at home, and tingling sensation in her legs. Patient states that prior to this she was in her usual state of health. In the emergency department she was found to be hypotensive with blood pressure 80/39 and had several episodes of melena. She was noted to be pallor with near syncope. She was given 5 mg IV vitamin K and 1 unit RBCs. Patient's INR was 2.3 and hemoglobin of 8.5. Patient now being transferred to ICU for further management at this time. Plan to undergo scope this a.m. On arrival to the ICU the patient is alert and oriented without acute distress. She appears to be hemodynamically stable following blood transfusion, and is mildly pallor. She denies any dizziness, fainting, changes in vision. She does report some tingling in her legs earlier this evening. She denies recent illnes s or fevers, cough or congestion, shortness of breath, chest pain or palpitations, abdominal pain, nausea or vomiting, changes in gait. She does ambulate with walker at home. She is seen in wound clinic for venous stasis ulcer of the lower extremities which currently have Rodolfo wrap's and compression stocking. She was started on Protonix drip and is currently n.p.o. She reports last episode of melena was in the emergency department just prior to transfer to the ICU. Allergies Allergy/AdvReac Type Severity Reaction Status Date / Time Sulfa (Sulfonamide Allergy Severe rash Verified 12/01/23 21:29 Antibiotics) latex Allergy Intermediate Rash Verified 12/01/23 21:29 Penicillins Allergy Intermediate Rash, Verified 12/01/23 21:29 heart palpitations cephalexin AdvReac Intermediate Diarrhea Verified 12/01/23 21:29 Home Medications Medication Instructions Recorded Confirmed Type dronedarone 400 mg tablet (Multaq) 400 mg PO BID 06/19/18 12/01/23 History metoprolol succinate 50 mg 50 mg PO QAM 06/19/18 12/01/23 History tablet,extended release 24 hr (Toprol XL) multivitamin 1 tab PO QAM 06/19/18 12/01/23 History nitroglycerin 0.4 mg sublingual 0.4 mg sublingual Q5M PRN Chest 06/19/18 12/01/23 History tablet (Nitrostat) Pain biotin 10 mg tablet 10 mg PO QAM 04/05/19 12/01/23 History acetaminophen 500 mg tablet 1,000 mg PO Q6H PRN Pain 08/31/22 12/01/23 History (Tylenol Extra Strength) cholecalciferol (vitamin D3) 125 125 mcg PO QAM 08/31/22 12/01/23 History mcg (5,000 unit) tablet (Vitamin D3) Lift Chair #1 ea 09/27/22 12/01/23 Rx furosemide 20 mg tablet 20 mg PO DAILY PRN edema #90 tabs 04/07/23 12/01/23 Rx iron,carbonyl 65 mg-vitamin C 125 1 tab PO QAM 05/05/23 12/01/23 History mg tablet,delayed release (Vitron-C) warfarin 1 mg tablet (Jantoven) See Rx Instructions .Route .COMPLEX 05/05/23 12/01/23 History hydrochlorothiazide 12.5 mg tablet 12.5 mg PO QAM #90 tabs 06/16/23 12/01/23 Rx lisinopril 10 mg tablet 10 mg PO QAM #90 tabs 08/14/23 12/01/23 Rx Patient History Medical History Pressure ulcer of left foot, stage 3 Encounter for pre-operative examination Venous stasis ulcer chronic BLLE. 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 Follows with René Block PA-C. Chronic venous insufficiency Surgical History H/O excision of mass (01/29/23) Scalp Mass Excision(Right) - Red Farfan MD, FACS Status post ablation of incompetent vein using laser History of excision of lesion (01/23/11) Wide excision lesion left lower extremity with full thickness skin graft. Dr. Farfan S/P Mohs surgery for basal cell carcinoma History of tonsillectomy and adenoidectomy History of arthroscopy of knee History of cataract surgery Family History Mother Cardiac disorder Father Hypertension Denies family history of Ovarian cancer Prostate cancer Myocardial infarction Breast cancer Colorectal cancer Social History Smoking Status: Never smoker Tobacco Type: Cigarettes Second Hand Exposure: No; Do You Dip or Chew Tobacco: No; Hx Alcohol Use: No Hx Substance Use: No Preferred Language: [place] Communication Ability: Effective Visual Impairment: No Limitations Hearing Ability: Normal [employer] Project Manager Required: No Beliefs That Will Affect Care: None marital status: / Current Living Situation: Alone current occupational status: employed current occupation: [employer] How many Children do You have: 3 Feels Safe at Home: Yes Childhood Exposure to Second-Hand Smoke: No Diet: regular Diet Comment: regular Dental Care, Regularly: Yes Physical Activity Frequency: Does not Exercise Seatbelt Use: always Sunscreen Use: Yes Assistive Devices: Denture - Upper and Walker Review of Systems Review of Systems: All systems reviewed & are unremarkable except as noted in HPI & below Physical Exam Constitutional: cooperative and comfortable; no acute distress Eyes: PERRL, conjunctivae normal, anicteric sclerae ENMT: external ear and nose normal, oropharynx normal Neck: trachea midline, no thyromegaly Respiratory: normal respiratory effort, lungs clear to auscultation Cardiovascular: Rate/Rhythm: regular rate and regular rhythm Heart Sounds: normal S1 and normal S2 Extremities: + edema (Bilateral lower extremity) Gastrointestinal (Abdomen): normal bowel sounds, soft, nontender, no hepatosplenomegaly melena Musculoskeletal: no cyanosis or clubbing, extremities motor strength 5/5 Skin: no rashes, warm and dry Neurologic: PERRL, EOMI, accommodation nl, no face palsy, no dysarthria Psychiatric: A+Ox3, euthymic affect Results & Data Results & Data Vital Signs (Past 12 Hours) Vital Signs Temp Pulse Resp BP Pulse Ox Pulse Ox O2 Del Method 12/02/23 02:33 95 12/02/23 02:30 65 31 H 98 12/02/23 02:29 101/39 L 12/02/23 02:29 65 26 H 99 12/02/23 02:15 62 24 99 12/02/23 02:04 70 23 97 12/02/23 02:04 125/57 L 12/02/23 02:00 68 18 98 12/02/23 01:57 66 27 H 100 12/02/23 01:40 61 21 102/50 L 100 Room Air 12/02/23 01:36 68 20 92/35 L 99 Room Air 12/02/23 01:32 78 17 77/65 L 12/02/23 01:26 68 16 88/52 L 99 Room Air 12/02/23 01:20 61 18 81/36 L 100 Room Air 12/02/23 01:15 62 16 75/37 L 99 Room Air 12/02/23 01:10 63 20 83/48 L 98 Room Air 12/02/23 01:05 65 21 93/44 L 94 Room Air 12/02/23 01:00 64 12 78/46 L 100 Room Air 12/02/23 00:55 60 20 83/45 L 99 Room Air 12/02/23 00:50 61 17 90/60 L 99 Room Air 12/02/23 00:46 36.7 C 65 22 81/36 L 97 12/02/23 00:45 64 22 94/58 L 99 Room Air 12/02/23 00:40 65 22 90/45 L 99 Room Air 12/02/23 00:35 64 24 92/48 L 99 Room Air 12/02/23 00:30 62 24 87/43 L 98 Room Air 12/02/23 00:26 36.6 C 60 19 99/49 L 99 12/02/23 00:25 60 20 87/47 L 98 Room Air 12/02/23 00:20 62 19 98/46 L 98 Room Air 12/02/23 00:15 60 20 99/49 L 99 Room Air 12/02/23 00:12 61 20 80/46 L 99 Room Air 12/02/23 00:10 63 15 71/53 L 99 Room Air 12/02/23 00:05 60 24 96/48 L 100 Room Air 12/02/23 00:00 61 21 103/45 L 98 12/02/23 00:00 61 21 103/45 L 98 Room Air 12/01/23 23:55 60 17 100/41 L 99 Room Air 12/01/23 23:50 60 19 107/47 L 99 Room Air 12/01/23 23:45 36.7 C 60 24 109/61 98 12/01/23 23:45 60 24 109/61 98 Room Air 12/01/23 23:40 61 23 95/42 L 99 Room Air 12/01/23 23:35 66 22 90/39 L 100 Room Air 12/01/23 23:30 36.5 C 66 22 90/39 L 100 12/01/23 23:30 62 23 97 Room Air 12/01/23 23:10 99/42 L 12/01/23 23:10 60 22 97 12/01/23 23:09 60 19 96 12/01/23 23:09 96/36 L 12/01/23 23:06 60 27 H 97 12/01/23 23:06 79/35 L 12/01/23 23:01 36.4 C 60 18 95/38 L 98 12/01/23 23:00 60 24 93 12/01/23 23:00 95/38 L 12/01/23 22:59 88/47 L 12/01/23 22:59 60 24 97 12/01/23 22:55 99/41 L 12/01/23 22:55 60 22 97 12/01/23 22:50 60 21 95 12/01/23 22:50 87/41 L 12/01/23 22:48 90/40 L 12/01/23 22:48 60 23 97 12/01/23 22:45 94/42 L 12/01/23 22:45 60 20 100 12/01/23 22:43 36.9 C 61 18 100/44 L 100 12/01/23 22:40 60 23 100 12/01/23 22:40 100/44 L 12/01/23 22:35 60 23 98 12/01/23 22:35 97/37 L 12/01/23 22:30 60 20 97 12/01/23 22:30 110/49 L 12/01/23 22:25 106/50 L 12/01/23 22:25 60 20 98 12/01/23 22:20 63 26 H 98 12/01/23 22:20 97/74 L 12/01/23 22:15 66 22 99 12/01/23 22:15 106/42 L 12/01/23 22:11 111/38 L 12/01/23 22:11 60 21 98 12/01/23 22:10 65 18 98 12/01/23 22:05 104/44 L 12/01/23 22:05 71 25 H 99 12/01/23 22:00 61 23 97 12/01/23 22:00 110/61 12/01/23 21:55 60 20 99 12/01/23 21:55 83/44 L 12/01/23 21:51 99/44 L 12/01/23 21:51 64 20 98 12/01/23 21:50 78/42 L 12/01/23 21:50 60 21 100 12/01/23 21:49 60 19 99 12/01/23 21:49 85/46 L 12/01/23 21:45 60 24 99 12/01/23 21:45 86/41 L 12/01/23 21:40 60 20 98 12/01/23 21:40 97/43 L 12/01/23 21:39 82/43 L 12/01/23 21:39 60 18 100 12/01/23 21:35 70 17 99 12/01/23 21:35 104/49 L 12/01/23 21:30 67 17 99 12/01/23 21:30 115/52 L 12/01/23 21:25 73 20 99 12/01/23 21:25 127/70 12/01/23 21:20 75 24 99 12/01/23 21:20 101/66 12/01/23 21:15 73 22 97 12/01/23 21:15 112/60 12/01/23 21:10 70 19 100 12/01/23 21:10 120/58 L 12/01/23 21:05 61 19 100 12/01/23 21:05 105/47 L 12/01/23 21:00 67 9 L 97 12/01/23 21:00 110/50 L 12/01/23 20:55 99/56 L 12/01/23 20:55 65 27 H 99 12/01/23 20:50 118/49 L 12/01/23 20:50 71 16 99 12/01/23 20:45 71 21 100 12/01/23 20:45 123/64 12/01/23 20:40 68 25 H 98 12/01/23 20:40 125/75 12/01/23 20:35 127/52 L 12/01/23 20:35 71 20 99 12/01/23 20:30 62 24 99 12/01/23 20:30 96/58 L 12/01/23 20:25 62 23 99 12/01/23 20:25 106/52 L 12/01/23 20:20 61 19 99 12/01/23 20:20 107/51 L 12/01/23 20:15 60 18 98 12/01/23 20:15 114/50 L 12/01/23 20:10 118/60 12/01/23 20:10 61 18 99 12/01/23 20:07 121/50 L 12/01/23 19:55 112/61 12/01/23 19:54 67 20 12/01/23 19:50 66 20 98 12/01/23 19:50 110/48 L 12/01/23 19:35 117/56 L 12/01/23 19:35 66 18 97 12/01/23 19:30 66 18 99 12/01/23 19:30 106/68 12/01/23 19:25 60 21 99 12/01/23 19:25 103/52 L 12/01/23 19:21 60 20 98 12/01/23 19:21 100/53 L 12/01/23 19:20 60 26 H 99 12/01/23 19:20 93/45 L 12/01/23 19:17 99/45 L 12/01/23 19:17 60 21 99 12/01/23 19:15 60 18 99 12/01/23 19:15 80/39 L 12/01/23 19:11 86/40 L 12/01/23 19:11 60 22 97 12/01/23 19:10 60 22 100 12/01/23 19:08 74/46 L 12/01/23 19:08 60 21 99 12/01/23 19:07 60 22 100 12/01/23 19:07 87/39 L 12/01/23 19:05 60 21 82 L 12/01/23 19:05 70/39 L 12/01/23 19:02 61 24 91 12/01/23 19:02 71/38 L 12/01/23 19:00 61 24 12/01/23 18:57 61 12/01/23 18:57 60 23 98 12/01/23 18:29 36.3 C L 68 18 115/56 L 98 Room Air O2 Del Method 12/02/23 02:33 Room Air 12/02/23 02:30 12/02/23 02:29 12/02/23 02:29 12/02/23 02:15 12/02/23 02:04 12/02/23 02:04 12/02/23 02:00 12/02/23 01:57 12/02/23 01:40 12/02/23 01:36 12/02/23 01:32 12/02/23 01:26 12/02/23 01:20 12/02/23 01:15 12/02/23 01:10 12/02/23 01:05 12/02/23 01:00 12/02/23 00:55 12/02/23 00:50 12/02/23 00:46 12/02/23 00:45 12/02/23 00:40 12/02/23 00:35 12/02/23 00:30 12/02/23 00:26 12/02/23 00:25 12/02/23 00:20 12/02/23 00:15 12/02/23 00:12 12/02/23 00:10 12/02/23 00:05 12/02/23 00:00 12/02/23 00:00 12/01/23 23:55 12/01/23 23:50 12/01/23 23:45 12/01/23 23:45 12/01/23 23:40 12/01/23 23:35 12/01/23 23:30 12/01/23 23:30 12/01/23 23:10 12/01/23 23:10 12/01/23 23:09 12/01/23 23:09 12/01/23 23:06 12/01/23 23:06 12/01/23 23:01 12/01/23 23:00 12/01/23 23:00 12/01/23 22:59 12/01/23 22:59 12/01/23 22:55 12/01/23 22:55 12/01/23 22:50 12/01/23 22:50 12/01/23 22:48 12/01/23 22:48 12/01/23 22:45 12/01/23 22:45 12/01/23 22:43 12/01/23 22:40 12/01/23 22:40 12/01/23 22:35 12/01/23 22:35 12/01/23 22:30 12/01/23 22:30 12/01/23 22:25 12/01/23 22:25 12/01/23 22:20 12/01/23 22:20 12/01/23 22:15 12/01/23 22:15 12/01/23 22:11 12/01/23 22:11 12/01/23 22:10 12/01/23 22:05 12/01/23 22:05 12/01/23 22:00 12/01/23 22:00 12/01/23 21:55 12/01/23 21:55 12/01/23 21:51 12/01/23 21:51 12/01/23 21:50 12/01/23 21:50 12/01/23 21:49 12/01/23 21:49 12/01/23 21:45 12/01/23 21:45 12/01/23 21:40 12/01/23 21:40 12/01/23 21:39 12/01/23 21:39 12/01/23 21:35 12/01/23 21:35 12/01/23 21:30 12/01/23 21:30 12/01/23 21:25 12/01/23 21:25 12/01/23 21:20 12/01/23 21:20 12/01/23 21:15 12/01/23 21:15 12/01/23 21:10 12/01/23 21:10 12/01/23 21:05 12/01/23 21:05 12/01/23 21:00 12/01/23 21:00 12/01/23 20:55 12/01/23 20:55 12/01/23 20:50 12/01/23 20:50 12/01/23 20:45 12/01/23 20:45 12/01/23 20:40 12/01/23 20:40 12/01/23 20:35 12/01/23 20:35 12/01/23 20:30 12/01/23 20:30 12/01/23 20:25 12/01/23 20:25 12/01/23 20:20 12/01/23 20:20 12/01/23 20:15 12/01/23 20:15 12/01/23 20:10 12/01/23 20:10 12/01/23 20:07 12/01/23 19:55 12/01/23 19:54 12/01/23 19:50 12/01/23 19:50 12/01/23 19:35 12/01/23 19:35 12/01/23 19:30 12/01/23 19:30 12/01/23 19:25 12/01/23 19:25 12/01/23 19:21 12/01/23 19:21 12/01/23 19:20 12/01/23 19:20 12/01/23 19:17 12/01/23 19:17 12/01/23 19:15 12/01/23 19:15 12/01/23 19:11 12/01/23 19:11 12/01/23 19:10 12/01/23 19:08 12/01/23 19:08 12/01/23 19:07 12/01/23 19:07 12/01/23 19:05 12/01/23 19:05 12/01/23 19:02 12/01/23 19:02 12/01/23 19:00 12/01/23 18:57 12/01/23 18:57 12/01/23 18:29 Coding Level of Care Code 66450 IN/OBS CONSULT LVL 4,60M Diagnoses Acute GI bleeding K92.2 Hypotension I95.9 Anemia D64.9 Traumatic open wound of great toe with delayed healing S91.103D Pressure ulcer of left foot, stage 3 L89.893 Venous ulcer of left leg I83.029; L97.929 Venous ulcer of right leg I83.019; L97.919 Essential hypertension I10 Hypertension type: essential hypertension Atrial fibrillation, unspecified type I48.91 Atrial fibrillation type: unspecified Hyperthyroidism E05.90 Squamous cell carcinoma of right lower leg C44.722 Time Spent (min) 62 (8) Hypertension Hypertension type: essential hypertension Qualified Code(s): I10 - Essential (primary) hypertension (9) Atrial fibrillation Atrial fibrillation type: unspecified Qualified Code(s): I48.91 - Unspecified atrial fibrillation
--- OUTSIDE RECORDS SUMMARY | 2023-12-02 03:43 | External Medical Summary | Continuity of Care Document ---
Author Name Unknown Organization [facility] [address] [place], [place] [address] Address [address] [place], [place] [id number] Care Team Providers Care Case Sealer Name Role Phone Kelvin Vee Primary Care Physician [phone] Encounter [facility] [id number] Date(s): 11/05/23 - 11/05/23 [facility] [address] [place] [id number] [facility] Medicine [address] [address] Encounter Diagnosis Bilateral primary osteoarthritis of knee(Discharge Diagnosis) - 11/05/23 Discharge Disposition: Home or Self Care Attending Physician: EVELIA Winkler Dennis Allergies, Adverse Reactions, Alerts Substance Reaction Severity Status sulfa drugs rash Active Assessment and Plan Extracted from: Title:Clinical Document Author:EVELIA Winkler Denn is Date:11/05/23 OUTPATIENT NOTE Name: JOSE RAFAEL MEJIA Patient Number:[id number] : 1935 Date of Service: 11/05/2023 HPI: This 88-year-old female presents to the clinic today for bilateral knee Euflexxa injection #3. She has only experienced mild pain relief after the initial two injections. Currently she denies signs or symptoms of infection and has no complaint of numbness or tingling in either lower extremity. Physical examination: Bilateral knees, patient is able to extend to 2 degrees and flex to 98 degrees. There is audible crepitation with active and passive range of motion. Medial joint line tenderness when the knee is palpated in the flexed position. A visible valgus deformity in both knee joints. Both patellae are nonmobile due to arthritic changes within the patellofemoral joint. Patient has no varus or valgus laxity. Negative AP drawer sign. Negative Richard test. No edema, erythema, ecchymosis, warmth, or palpable bony deformity. Both calves are soft and supple, nontender to palpation. Patient does have significant venous stasis dermatitis in both lower extremities. The patient is neurovascularly intact in both lower extremities. Impression: Bilateral knee degenerative joint disease Procedure: Patient was seated on the edge of the table with her knees placed in the flexed position. Using the cap of the needle the lateral joint space of each knee was marked. A timeout was performed with the patient she verbalizes we will proceed with bilateral knee Euflexxa injection #3. René sites were cleansed with Betadine swab, anesthetized with ethyl chloride spray, likely with alcohol soaked 4 x 4. A 22- gauge needle connected to prefilled syringe of Euflexxa was easily passed through the lateral joint space of each knee injected free-flowing without any resistance. Upon removal of the needles patient had no bleeding. Sites were again cleansed with alcohol soaked 4 x 4, wiped dry with a sterile 4 x 4 and covered with a Band- Aid. Patient tolerated procedure very well. DESTINEE Estrada served as a witness for this procedure Plan: I like the patient to have bilateral knee x-rays before doing her injections next week. Patient was advised to watch for signs symptoms of infection if any should occur she was advised to either contact the clinic or go to the emergency department immediately. Patient verbalized understanding of all information provided during today's visit. She thanks for the care that she received. She has questions or concerns should arise prior to her 3 month follow up, she will contact clinic. This chart was completed utilizing [employer] voice recognition software. Grammatical errors, random word insertions, pronoun errors, and in complete sentences are an occasional consequence of the system. Any questions or concerns about the content, text, or information contained within the body of this dictation should be addressed directly to the physician for clarification. Medications Coumadin 1 mg oral tablet Start: 09/01/13 10:19:00, See Instructions, 2 tabs Sun,mon,tues Wed, Fri, Sat 1 tab on Start Date: 09/01/13 Status: Ordered Euflexxa 10 mg/mL intra-articular solution Start: 05/08/22 10:04:00 EDT, 20 mg =, intra-articular, q7days, Disp# 12 mL, bilateral knee injections Start Date: 05/08/22 Status: Ordered Glucosamine & Chondroitin with MSM oral tablet Start: 06/29/13 10:30:00, 1 tab/dose unknown, PO, Daily Start Date: 06/29/13 Status: Ordered hydrochlorothiazide 25 mg oral tablet Start: 06/23/13 10:30:00, 0.5 tab, PO, Daily Start Date: 06/23/13 Status: Ordered lisinopril 10 mg oral tablet Start: 06/23/13 10:31:00, 1 tab, PO, Daily Start Date: 06/23/13 Status: Ordered metoprolol tartrate 50 mg oral tablet Start: 06/23/13 10:30:00, 1 tab, PO, Daily Start Date: 06/23/13 Status: Ordered Multaq 400 mg oral tablet Start: 09/01/13 10:19:00, 1 tab, PO, bid Start Date: 09/01/13 Status: Ordered multivitamin Start: 06/23/13 10:32:00, 1 tab, PO, Daily Start Date: 06/23/13 Status: Ordered triamcinolone/Aveeno cmpd Start: 03/20/16 8:22:00, triamcinolone/Aveeno cmpd, eRx Product Type: Compound, 1 appl, topical, bid, Disp# 120 g, Refills: 3, PRN: Itching, apply to chest dermatitis until clear, Note to Pharmacy: mix equal parts triamcinolone 0.1% cream and Aveeno a... Start Date: 03/20/16 Status: Ordered Vitamin D3 Start: 06/29/13 10:30:00, 3000 IU, PO, Daily Start Date: 06/29/13 Status: Ordered Mental Status 11/05/23 Barriers to Learning one year None evide nt Mandatory Health Literacy Documentation Yes Health Literacy Communication Barriers N ever Primary Language Luxembourgish Problem List Condition Confirmation Course Effective Dates Status Health St atus Informant AK (actinic keratosis) Confirmed Active Atrial fibrillation Confirmed Active Basal cell carcinoma of skin Confirmed Active DJD (degenerative joint disease) 1 Confirmed Active HTN (hypertension) Confirmed Active Knee pain, bilateral Confirmed Active Left knee pain Confirmed Active DJD (degenerative joint disease) of knee Confirmed Active Pacemaker Confirmed Active DJD (degenerative joint disease) of knee Confirmed Active Squamous cell skin cancer Confirmed Active 1B/L Knees Diagnosis Diagnosis Type Effective Dates Health Status Clinical Service Informant Bilateral primary osteoarthritis of knee Discharge Diagnosis 11/05/23 Procedures Procedure Date Related Diagnosis Body Site Status Ablation 2016 Completed Shave biopsy and cauterizati on of skin 2 04/26/15 Completed Shave biopsy and cauterizati on of skin 3 09/28/14 Completed Shave biopsy of skin 06/22/14 Comp leted Shave biopsy of skin 11/02/13 Comp leted Electrodesiccation with curettage 09/29/13 Completed Shave biopsy of skin 09/29/13 Comp leted Shave biopsy of skin 09/01/13 Comp leted Pacemaker 2006 Completed Ankle fusion 1959 Completed Removal of ankle lesion 5 Completed 1left leg 2with curettage 3with curettage 4Right ankle 5of ankle lesion Social History Social History Type Response Smoking Status Never smoked cigaret sujit Sex Female Outpatient Note * EVELIA Winkler, Mike: PERFORM Event Display: .Outpt Note Authored Date: [id number] OUTPATIENT NOTE Name: JOSE RAFAEL MEJIA Patient Number:1 [id number] : 1935 Date of Service: 11/05/2023 HPI: This 88-year-old female presents to the clinic today for bilateral knee Euflexxa injection #3.She has only experienced mild pain relief after the initial two injections. Currently she denies signs or symptoms of infection and has no complaint of numbness or tingling in either lower extremity. Physical examination: Bilateral knees, patient is able to extend to 2 degrees and flex to 98 degrees. There is audible crepitation with active and passive range of motion. Medial joint line tenderness when the knee is palpated in the flexed position. A visible valgus deformity in both knee joints. Both patellae are nonmobile due to arthritic changes within the patellofemoral joint. Patient has novarus or valgus laxity. Negative AP drawer sign. Negative Richard test. No edema, erythema, ecchymosis, warmth, or palpable bony deformity. Both calves are soft and supple, nontender to palpation. Patient does have significant venous stasis dermatitis in both lower extremities. The patient is neurovascularly intact in both lower extremities. Impression: Bilateral knee degenerative joint disease Procedure: Patient was seated on the edge of the table with her knees placed in the flexed position. Using the cap of the needle the lateral joint space of each knee was marked. A timeout was performed with the patient she verbalizes we will proceed with bilateral knee Euflexxa injection #3. René sites were cleansed with Betadine swab, anesthetized with ethyl chloride spray, likely with alcohol so aked 4 x 4. A 22-gauge needle connected to prefilled syringe of Euflexxa was easily passed through the lateral joint space of each knee injected free-flowing without any resistance. Upon removal of the needles patient had no bleeding. Sites were again cleansed with alcohol soaked 4 x 4, wiped dry with a sterile 4 x 4 and covered with a Band-Aid. Patient tolerated procedure very well. DESTINEE Estrada served as a witness for this procedure Plan: I like the patient to have bilateral knee x-rays before doing her injections next week. Patient was advised to watch for signs symptoms of infection if any should occur she was advised to either contact the clinic or go to the emergency department immediately. Patient verbalized understandingof all information provided during today's visit. She thanks for the care that she received. She has questions or concerns should arise prior to her 3 month follow up, she will contact clinic. This chart was completed utilizing Ed4U voice recognition software. Grammatical errors,random word insertions, pronoun errors, and in complete sentences are an occasional consequence of the system. Any questions or concerns about the content, text, or information contained within the body of this dictation should be addressed directly to the physician for clarification. Electronic Signature on File Electronically Reviewed/Signed by: Mike Winkler PA-C Author Signature Dt/Tm:11/05/2023 08:58 AM Division of Sports Medicine Electronically Reviewed/Signed by: MD Raul Stoneigner Signature Dt/Tm: 11/05/2023 11:19 AM Division of Sports Medicine [place] Patient Care team information Care Team Personnel Name: DO Vee Philip A Position: Referring Member Role: Primary Care Provider Address: Address: [address] [place] [id number] [place] Care Team Related Persons Name: BAM MEJIA Address: home [address] [place] [address]
--- OUTSIDE RECORDS SUMMARY | 2023-12-02 03:43 | External Medical Summary | Continuity of Care Document ---
Author Name Unknown Organization [place] [id number] Address [address] [place], [place] [id number] Care Team Providers Care Manager Rn Name Role Phone Kelvin Vee Primary Care Physician [phone] Encounter [facility] [id number] Date(s): 10/29/23 - 10/29/23 [facility] [employer] [address] [place] [id number] [facility] Medicine [address] [address] Encounter Diagnosis DJD (degenerative joint disease) of knee(Discharge Diagnosis) - 10/29/23 Discharge Disposition: Home or Self Care Attending Physician: EVELIA Winkler Dennis Allergies, Adverse Reactions, Alerts Substance Reaction Severity Status sulfa drugs rash Active Assessment and Plan Extracted from: Title:Clinical Document Author:EVELIA Winkler Denn is Date:10/29/23 OUTPATIENT NOTE Name: JOSE RAFAEL MEJIA Patient Number:1 [id number] : 1935 Date of Service: 10/29/2023 HPI: This 88-year-old female presents to the clinic today for bilateral knee Euflexxa injection #2. She has only experienced mild pain relief after the initial injections last week. Currently she denies signs or symptoms of [...] extremities. Impression: Bilateral knee degenerative joint disease Radiographic imaging: X-rays the patient's knees performed in our clinic today were reviewed and they show end-stage degenerative arthritis affecting both knees with significant malalignment of the left knee joint. Procedure: Patient was seated on the edge of the table with her knees placed in the flexed position. Using the cap of the needle the lateral joint space of each knee was marked. A timeout was performed with the patient she verbalizes we will proceed with bilateral knee Euflexxa injection #2. René sites were cleansed with Betadine swab, [...] Aid. Patient tolerated procedure very well. DESTINEE Marks served as a witness for this procedure [...] or concerns should arise prior to her next injection in 1 week, she will contact clinic. This chart was completed utilizing [employer] voice recognition software. Grammatical errors, random word [...] Start Date: 06/29/13 Status: Ordered Mental Status 10/29/23 Barriers to Learning one year None evide nt Mandatory Health Literacy Documentation Yes Health Literacy Communication Barriers N ever Primary Language Slovak Problem List Condition Confirmation Course Effective Dates [...] Diagnosis Diagnosis Type Effective Dates Health Status Cl inical Service Informant DJD (degenerative joint disease) of knee Discharge Diagnosis 10/29/23 Procedures Procedure Date Related Diagnosis Body Site [...] PERFORM Event Display: .Outpt Note Authored Date: [id number] OUTPATIENT NOTE Name: JOSE RAFAEL MEJIA Patient Number:1 [id number] : 1935 Date of Service: 10/29/2023 HPI: This 88-year-old female presents to the clinic today for bilateral knee Euflexxa injection #2.She has only experienced mild pain relief after the initial injections last week. Currently she denies signs or symptoms of infection and has no complaint of numbness or tingling in either lower extre mity. Physical examination: Bilateral knees, patient is able [...] extremities. Impression: Bilateral knee degenerative joint disease Radiographic imaging: X-rays the patient's knees performed in our clinic today were reviewed and they show end-stage degenerative arthritis affecting both knees with significant malalignment of the left knee joint. Procedure: Patient was seated on the edge of the table with her knees placed in the flexed position. Using the cap of the needle the lateral joint space of each knee was marked. A timeout was performed with the patient she verbalizes we will proceed with bilateral knee Euflexxa injection #2. René sites were cleansed with Betadine swab, [...] Band-Aid. Patient tolerated procedure very well. DESTINEE Marks served as a witness for this procedure [...] or concerns should arise prior to her next injection in 1 week, she will contact clinic. This chart was completed utilizing [employer] voice recognition software. Grammatical errors,random word insertions, pronoun errors, and in complete sentences are an occasional consequence of the system. Any questions or concerns about the content, text, or information contained within the body of this dictation should be addressed directly to the physician for clarification. Electronic Signature on File Electronically Reviewed/Signed by: Mike Winkler PA-C Author Signature Dt/Tm:10/29/2023 10:00 AM Division of Sports Medicine Electronically Reviewed/Signed by: MD Raul Stoneigner Signature Dt/Tm: 10/29/2023 10:37 AM Division of Sports Medicine [facility] Patient Care team information Care Team Personnel Name: DO Vee Philip A Position: Referring Member Role: Primary Care Provider Address: Address: [address] [place] [address], [place] [address] Care Team Related Persons Name: BAM MEJIA Address: home [address] [place], [place]
--- OUTSIDE RECORDS SUMMARY | 2023-12-02 03:43 | External Medical Summary | Summary of Care ---
Author Name Unknown Organization [facility] Address [address] [facility] [place] [address] Phone [phone] Care Team Providers Care Bee Tender Name Role Phone Kelvin Vee Attjosafat DO Primary Care Provider Reason for Visit * Reason Comments Dosage Adjustment In Person (Anticoag Cl inic) Encounter Details Date Type Department Care Team (Latest Contact Info) Description 11/18/2023 10:20 AM EST Anticoagulation Pharmacy, 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 Allergies Active Allergy Reactions Criticality Noted Date Comments Ciprofloxacin High 10/19/2013 States she cant take with Multaq Sulfa Antibiotics Rash 08/04/2013 Pt gets "warm and red" documented as of this encounter (statuses as of 11/18/2023) Medications Medication Sig Dispensed Refills Start Date End Date Status CALCIUM CAPS 500 MG OR one cap by mouth daily 0 Active MULTIVITAMINS OR TABS daily 0 05/08/2004 Active BIOTIN 1000 MCG PO TABS daily 0 11/21/2008 Active HYDROCHLOROTHIAZIDE 25 MG PO TABSIndications:HTN , goal to be determined 1/2 tab po daily 30 6 12/16/2008 Active lisinopril (PRINIVIL) 10 MG Tablet Take 1 Tablet by mouth in the morning. As directed.. 3 11/10/2017 Active Glucosamine Chondroitin Adv Oral Tablet Take 1 Tablet by mouth in the morning. 0 Active Vitamin D 50 MCG (2000 UT) Oral Tablet Take 5,000 Units by mouth daily. 0 06/29/2021 Active Fluorouracil 5 % External Cream (Efudex)Indications :Actinic keratosis Apply to left cheek twice daily x 2 weeks and to nose twice daily x 6 weeks 40 g 5 11/23/2021 Active Nitroglycerin 0.4 MG Sublingual Tablet Sublingual (Nitrostat) Place under the tongue 1 Tablet every 5 minutes as needed for Pain, Chest. up to 3 doses in 15 minutes 25 Tablet 11 05/31/2022 Active Additional Information Patient not taking.Reported on 02/12/2023 Mupirocin 2 % External Ointment (Bactroban) Apply to wound on legs twice daily under telfa pad and katerina wrap 60 g 2 08/23/2022 Active Warfarin Sodium 1 MG Oral Tablet (Jantoven)Indicatio ns:Atrial fibrillation (HCC) Take 1mg Mon,Fri & Fri; 2mg all other days or as directed 145 Tablet 3 10/16/2022 Active Vitron-C 65-125 MG Oral Tablet (Iron-Vitamin C 65-125 mg per tab)Indications:Ane jamie, unspecified type Take 1 Tablet by mouth in the morning. 90 Tablet 3 02/12/2023 Active Dronedarone HCl 400 MG Oral Tablet (Multaq)Indications :Paroxysmal atrial fibrillation (HCC) TAKE ONE TABLET BY MOUTH WITH EVERY MORNING AND EVENING MEAL 60 Tablet 5 04/29/2023 Active Metoprolol Succinate ER 50 MG Oral Tablet Extended Release 24 Hour (toPROL XL)Indications:Paro xysmal atrial fibrillation (HCC) Take 1 Tablet by mouth in the morning. 90 Tablet 3 05/14/2023 Active Dronedarone HCl 400 MG Oral Tablet (Multaq)Indications :Paroxysmal atrial fibrillation (HCC) TAKE ONE TABLET BY MOUTH WITH EVERY MORNING AND EVENING MEAL 180 Tablet 3 10/23/2023 Active documented as of this encounter (statuses as of 11/18/2023) Active Problems Problem Noted Date Diagnosed Date History of nonmelanoma skin cancer 08/22/2021 Chronic kidney disease, stage 3a 07/02/2021 Overview: Per CKD protocol Sinus node dysfunction 01/17/2016 Abscess of leg 09/16/2012 HTN, GOAL BELOW 140/80 06/08/2012 Overview: Per HTN Protocol #27. Cardiac pacemaker in situ 07/05/2011 Type 2 diabetes mellitus wit h hemoglobin A1c goal of less than 7.0% 08/17/2009 Overview: Per Diabetes Taxonomy. ICD-10 update of inactive term Atrial fibrillation 05/05/2007 Anticoagulation management encounter 05/05/2007 alf current use of anticoagulant therapy 0 05/05/2007 Overview: ICD-10 update of inactive term ADVANCE DIRECTIVE INFORMATION 06/05/2005 Overview: No, Advance Directive brochure given to pt CHR ISCHEMIC HRT DIS NOS documented as of this encounter (statuses as of 11/18/2023) Resolved Problems Problem Noted Date Diagnosed Date Resolved Date Other specified malignant ne oplasm of skin of lower limb, including hip 08/15/2011 08/22/2021 Other malignant neoplasm of skin of lower limb, including hip 01/28/2011 08/22/2021 HTN, GOAL BELOW 130/80 09/12/200906/11 Overview: Modified per HTN protocol #16. Type 2 diabetes mellitus wit h hemoglobin A1c goal of less than 7.0% 08/17/2009 Overview: Per Diabetes Taxonomy. ICD-10 update of inactive term HYPERTENSION NOS 09/12/2009 Overview: Modified per HTN protocol #16. documented as of this encounter (statuses as of 11/18/2023) Immunizations Name Administration Dates Next Due TDAP (age 10 and older)(Boostrix) 01/23/2021 documented as of this encounter Social History Tobacco Use Types Packs/Day Years Used Date Smoking Tobacco: Never Smokeless Tobacco: Never Alcohol Use Standard Drinks/Week Comments No 0 (1 standard drink = 0.6 oz pur e alcohol) Sex and Gender Information Value Date Recorded Sex Assigned at Not on file Gender Identity Not on file Sexual Orientation Not on file Job Start Date Occupation Industry Not on file Not on file Not on file documented as of this encounter Progress Notes * Robert V, Glenn, RPh - 11/18/2023 10:42 AM EST Images from the original note were not included. Medication Therapy Disease Management - Anticoagulation Radha Floyd 1935 Patient Findings Negatives: Signs/symptoms of thrombosis, Signs/symptoms of bleeding, Change in health, Change in alcohol use, Change in activity, Upcoming invasive procedure, Missed doses, Extra doses, Change in medications, Change in diet/appetite, Bruising INR Result As of 11/18/2023 INR goal: 2.0-3.0 INR used for dosin.4 (11/18/2023) Warfarin Plan As of 11/18/2023 Full warfarin instructions: 11/18: 4 mg; Otherwise 1 mg every Mon; 2 mg all other days Next INR check: 12/16/2023 Repeat PT/INR in 4 week(s) Weekly dose: increased Glenn Jones RPh, CACP, CDE Clinical Pharmacist Medication Therapy Management Clinic 11/18/2023 10:49 AM documented in this encounter Plan of Treatment Upcoming Encounters Date Type Department Care Team (Late st Contact Info) Description 12/16/2023 10:30 AM EST Anticoagulation Pharmacy, [facility] [address] [facility] [address] Pharmacist1, [facility] [address] [facility] [address] 01/16/2024 9:00 AM EDT Cardiac Studies Cardiology, [facility] [address] [place] [address] [place], Pacer Clinic [facility] [address] [place] [address] 03/24/2024 9:00 AM EDT Office Visit Cardiology, [facility] [address] [place] [address] René Block PA-C [address] [place] [address] Health Maintenance Due Date Last Done Comments COVID-19 Vaccine (#1) 1935 Depression Screening 1947 CKD PHOS USE SMARTSET 58467 01/18/1954 Diabetic Foot Exam 01/18/1954 Zoster Vaccines (1 of 2) 01/18/1986 Hepatitis B (1 of 3 - Risk 3-dose series) 1996 Pneumococcal Vaccine: 65+ Years (2 - PCV) 06/05/2006 06/05/2005 Albumin/Creatinine Ratio 12/27/2006 006, 04/18/2005, 08/03/2003, Additional history exists HbA1c 11/05/2007 05/05/2007, 12/18, 04/18/2005, Additional history exists DXA Scan 08/13/2017 08/13/2016 Diabetic Eye Exam 10/25/2021 10/25/2020, , 10/09/2018, Additional history exists Influenza Vaccine (FLU shot) (#1) 2023 CKD HGB USE SMARTSET 29993 10/21/202410/21, 04/15/2023, 04/15/2023, Additional history exists DTaP,Tdap,and Td Vaccines (2 - Td or Tdap) 01/23/2031 01/23/2021, 08/05/2000 GARDASIL-HPV IMMUNIZATION SERIES Aged Out No longer eligible based on patient's age to complete this topic MENINGOCOCCAL (MENACTRA/MENVEO) Aged Out No longer eligible based on patient's age to complete this topic documented as of this encounter Medical Devices Not on filedocumented as of this encounter Procedures Procedure Name Priority Date/Time Associated Diagnosis Comments INR FINGERSTICK, POINT OF CARE STAT 11/18/2023 10:46 AM EST Atrial fibrillation, unspecified type (HCC) Anticoagulation management encounter alf current use of anticoagulant therapy documented in this encounter Results * INR FINGERSTICK, POINT OF CARE (11/18/2023 10:46 AM EST) Fingerstick INR 1.4 INR 01/30/202 4 10:48 AM EST [facility] Blood 11/18/2023 10:4 6 AM EST 11/18/2023 10:48 AM EST Narrative [facility] 56- - 11/18/2023 10:48 AM EST Therapeutic ranges for non-operative patients: Prophylaxsis/treatment of DVT: (Range:2.0-3.0) Treatment of pulmonary embolism:(Range:2.0-3.0) Prevention of systemic embolism from: -tissue heart valves -acute myocardial infarction -valvular heart disease -atrial fibrillation (Range: 2.0-3.0) Mechanical prosthetic valves: (Range: 2.5-3.5) Glenn Jones V, [facility] POINT OF CARE TE ST DOCKED DEVICE UNSOLICITED RESULTS [facility] [address] [place] [address] documented in this encounter Visit Diagnoses Diagnosis Longstanding persistent atrial fibrillation (HCC)- Primary Atrial fibrillation, unspecified type (HCC) Anticoagulation management encounter Encounter for therapeutic drug monitoring alf current use of anticoagulant therapy documented in this encounter Care Teams Bee Tender Relationship Specialty Start Date End Date Kevlin Vee DO [address] [facility] [address] [place] [address] PCP - General Family Medicine 08/14/22 documented as of this encounter
--- OUTSIDE RECORDS SUMMARY | 2023-12-02 03:43 | External Medical Summary | Summary of Care ---
Author Name Unknown Organization [facility] Address [address] [facility] [place] [address] Phone [phone] Care Team Providers Care Public Relations Officer Name Role Phone Kelvin Vee Attjosafat DO Primary Care Provider Reason for Visit * Reason Comments Pacemaker Clinic Encounter Details Date Type Department Care Team (Latest Contact Info) Description 11/14/2023 9:00 AM EST Cardiac Studies Cardiology, [facility] [address] [facility] [address] [place], Pacer Clinic [facility] [address] [place] [address] Cardiac pacemaker in situ*; Sinus node dysfunction (HCC); Paroxysmal atrial fibrillation (HCC) Allergies Active Allergy Reactions Criticality Noted Date Comments Ciprofloxacin High 10/19/2013 States she cant take with Multaq Sulfa Antibiotics Rash 08/04/2013 Pt gets "warm and red" documented as of this encounter (statuses as of 11/14/2023) Medications Medication Sig Dispensed Refills Start Date [...] morning. 0 Active Vitamin D 50 MCG (1999 UT) Oral Tablet Take 5,000 Units by [...] as of this encounter (statuses as of 11/14/2023) Active Problems Problem Noted Date Diagnosed Date [...] Atrial fibrillation 05/05/2007 Anticoagulation management encounter 05/05/2007 assisted current use of anticoagulant therapy 0 05/05/2007 Overview: ICD-10 update of inactive term ADVANCE DIRECTIVE INFORMATION 06/05/2005 Overview: No, Advance Directive brochure given to pt CHR ISCHEMIC HRT DIS NOS documented as of this encounter (statuses as of 11/14/2023) Resolved Problems Problem Noted Date Diagnosed Date [...] as of this encounter (statuses as of 11/14/2023) Immunizations Name Administration Dates Next Due TDAP [...] on file documented as of this encounter Nursing Notes * Lila Gutierrez LPN - 11/14/2023 9:24 AM EST Patient and implanted device were evaluated today in the [facility]. Providers please see scanned report in the Scans tab. Left pectoral device pocket is healthy without erythema, swelling, pain, or drainage. Interrogation by Jay Hallman of [employer] and Lila Gutierrez LPN documented in this encounter Plan of Treatment Upcoming Encounters Date Type Department Care Team (Late st Contact Info) Description 11/18/2023 10:20 AM EST Anticoagulation Pharmacy, [facility] [address] [facility] [place] [address] Pharmacist1, [facility] [address] [facility] [place] [address] 01/16/2024 9:00 AM EDT Cardiac Studies Cardiology, [facility] [address] [facility] [place] [address] [place], Pacer Clinic [facility] [address] [place] [place] [address] 03/24/2024 9:00 AM EDT Office Visit Cardiology, [facility] [address] [facility] [place] [address] René Block PA-C [address] [place] [facility] [address] Scheduled Orders Name Type Priority Associated Diagnoses Orde r Schedule DUAL-LEAD PACEMAKER + REPROGRAM Procedures Routine Cardiac pacemaker in situ Sinus node dysfunction (HCC) Paroxysmal atrial fibrillation (HCC) Ordered: 11/14/2023 Health Maintenance Due Date Last Done Comments COVID-19 Vaccine (#1) 1935 Depression Screening 1947 CKD PHOS USE SMARTSET 69182 01/18/1954 Diabetic Foot Exam 01/18/1954 Zoster Vaccines [...] shot) (#1) 2023 CKD HGB USE SMARTSET 52474 10/21/202410/21, 04/15/2023, 04/15/2023, Additional history exists DTaP,Tdap,and Td Vaccines (2 - Td or Tdap) 01/23/2031 01/23/2021, 08/05/2000 GARDASIL-HPV IMMUNIZATION SERIES Aged Out No longer eligible based on patient's age to complete this topic MENINGOCOCCAL (MENACTRA/MENVEO) Aged Out No longer eligible based on patient's age to complete this topic documented as of this encounter Medical Devices Not on filedocumented as of this encounter Visit Diagnoses Diagnosis Cardiac pacemaker in situ- Primary Sinus node dysfunction (HCC) Sinoatrial node dysfunction Paroxysmal atrial fibrillation (HCC) Atrial fibrillation documented in this encounter Care Teams Public Relations Officer Relationship Specialty Start Date End Date Kelvin Vee DO [address] [facility] [place] [address] PCP - General Family Medicine 08/14/22 documented as of this encounter
--- OUTSIDE RECORDS SUMMARY | 2023-12-02 03:43 | External Medical Summary | Summary of Care ---
Author Name Unknown Organization [facility] Address [address] [facility] [place] [address] Phone [phone] Care Team Providers Care Earthmoving Labourer Name Role Phone Kelvin Vee Attilio DO Primary Care Provider Encounter Details Date Type Department Care Team (Late st Contact Info) Description 11/27/2023 Result Scan Unspecified Department Marty Vargas DO [address] [place] [address] <No scans attached> Allergies Active Allergy Reactions Criticality Noted Date Comments Ciprofloxacin High 10/19/2013 States she cant take with Multaq Sulfa Antibiotics Rash 08/04/2013 Pt gets "warm and red" documented as of this encounter (statuses as of 11/27/2023) Medications Medication Sig Dispensed Refills Start Date [...] Tablet (Jantoven)Indicatio ns:Atrial fibrillation (HCC) Take 1mg Mon,Wed & Fri; 2mg all other days or [...] as of this encounter (statuses as of 11/27/2023) Active Problems Problem Noted Date Diagnosed Date [...] as of this encounter (statuses as of 11/27/2023) Resolved Problems Problem Noted Date Diagnosed Date [...] as of this encounter (statuses as of 11/27/2023) Immunizations Name Administration Dates Next Due TDAP [...] on file documented as of this encounter Plan of Treatment Upcoming Encounters Date Type Department Care Team (Late st Contact Info) Description 12/16/2023 10:30 AM EST Anticoagulation Pharmacy, [facility] [place] [address] [place], [place] [address] Pharmacist1, [facility] [address] [place] [address] 01/16/2024 9:00 AM EDT Cardiac Studies Cardiology, [facility] [address] [place] [address] [place] [facility]er [facility] [address] [facility] [place] [address] 03/24/2024 9:00 AM EDT Office Visit Cardiology, [facility] [address] [place] [address] René Block PA-C [address] [place] [address] Health Maintenance Due Date Last Done Comments COVID-19 Vaccine (#1) 1935 Depression Screening 1947 CKD PHOS USE SMARTSET 52614 01/18/1954 Diabetic Foot Exam 01/18/1954 Zoster Vaccines [...] shot) (#1) 2023 CKD HGB USE SMARTSET 42352 10/21/202410/21, 04/15/2023, 04/15/2023, Additional history exists DTaP,Tdap,and [...] Procedure Name Priority Date/Time Associated Diagnosis Comments CARDIOLOGY SCANNED RESULT 11/27/2023 documented in this encounter Results * CARDIOLOGY SCANNED RESULT (11/27/2023) 11/27/2023 Marty Vargas DO OTHER documented in this encounter Care Teams Earthmoving Labourer Relationship Specialty Start Date End Date Kelvin Vee DO [address] [facility] [place] [address] PCP - General Family Medicine 08/14/22 documented as of this encounter
--- OUTSIDE RECORDS SUMMARY | 2023-12-02 03:43 | External Medical Summary ---
Author Name Unknown Address Unknown Organization K09:[facility] [place] [address] Laboratory Report Ordering Provider Test Date Status RACHANA CERRATO V 11/18/2023 10:46:00 Final Therapeutic ranges for non-o perative patients:
Prophylaxsis/treatment of DVT: (Range:2.0-3.0)
Treatment of pulmonary embolism:(Range:2.0-3.0)
Prevention of systemic embolism from:
-tissue heart valves
-acute myocardial infarction
-valvular heart disease
-atrial fibrillation
(Range: 2.0-3.0)
Mechanical prosthetic valves: (Range: 2.5-3.5) Observation Date Value Abnormality Reference (Units ) Status INR in Capillary blood by Coagulation assay 11/18/2023 10:46:00 1.4 (INR) Final Performing Location [facility] [place] [address]
[2023-12-02 03:44] LABS: Hematocrit (blood only) 22.3 % (37.0-47.0); Hemoglobin 7.1 g/dl (12.0-16.0); Mean Corpuscular Hemoglobin 29.5 pg (25.0-34.0); Mean Corpuscular Hgb Conc 31.8 g/dL (32.0-36.0); Mean Corpuscular Volume 92.5 fL (80.0-100.0); Mean Platelet Volume 10.1 fL (9.4-12.4); Platelet Count 127 K/uL (130-400); RDW Standard Deviation 53.7 fL (36.4-46.3); Red Blood Count 2.41 M/uL (4.20-5.40); White Blood Count 6.46 K/ul (4.8-10.8)
[2023-12-02 04:03] LABS: BUN Creatinine Ratio 87.2 (10-20); Calcium 7.7 mg/dl (8.6-10.3); Est GFR (African American) 48.5 ml/min; Est GFR (Non-African American) 41.9 ml/min; Potassium 5.3 mmol/L (3.5-5.1)
[2023-12-02] MEDS: ACETAMINOPHEN 1,000 MG/100 ML VIAL IV PRN (04:10)
[2023-12-02 04:13] LABS: Fibrinogen 227 mg/dl (184-400); INR 1.5 (0.9-1.1); Prothrombin Time 15.9 Seconds (9.0-12.0)
[2023-12-02] MEDS: PLASMA-LYTE A 1,000 ML IV SCH (06:35)
--- NOTE | 2023-12-02 07:20 | XRay Report ---
XR chest 1V portable HISTORY: weakness COMPARISON: Chest 10/02/2022. FINDINGS: Slightly rotated study. No pneumothorax. No pleural effusions. The heart remains mildly enl arged. Left basilar linear densities favor subsegmental atelectasis or scarring. Otherwise, no new fo jose miguel lung consolidations to suggest a pneumonia. No evidence for pulmonary edema. Left-sided dual-damari pebbles pacemaker again noted. No acute fractures identified. IMPRESSION: Mild cardiomegaly. Otherwise, no acute process within the chest. ACT 112: Negative or not required by law. Electronically signed by: Suman Balbuena M.D. 12/02/2023 7:18 AM
[2023-12-02] MEDS: DRONEDARONE HCL 400 MG TAB PO SCH (08:50)
--- NOTE | 2023-12-02 11:08 | Hospitalist Progress Note ---
Date of Service December 02, 2023 Assessment & Plan (1) Hemorrhagic shock: Plan: 2nd to #2 improved BP overnight with IV fluids & PRBCs low BP necessitated the transfer to the ICU appreciate ICU assistance (2) Acute GI bleeding: Plan: UGI in origin likely given the melena stools and markedly elevated BUN GI consult placed, to have EGD today to check etiology Acute GI bleed led to #1 and #3 s/p PRBCs overnight - 2 units Coumadin reversed All antihypertensives - HCTZ, Lisinopril, Metoprolol - are on hold Serial CBCs Cont IV PPI (3) Acute blood loss anemia: Plan: 2nd to #2 s/p 2 units PRBCs with improved H/H BPs improved with PRBCs consider IV venofer while here serial CBCs (4) Atrial fibrillation: Plan: Coumadin reversed with vitamin K Continue Dronedarone INR today noted (1.5) (5) Hypertension: Plan: all anti-hypertensives are on hold due to #1 (6) Thrombocytopenia: Plan: likely consumptive in the setting of acute upper GI bleeding daily CBC (7) Venous stasis ulcer: Plan: b/l shins wound care consult placed & appreciated defer Rx to them chronic issue - [facility] Plan appreciate assembler show motor support and GI support Admission and Anticipated Discharge Date Admission Date: December 01, 2023 Subjective patient resting comfortably in bed BPs improved this am s/p PRBCs no further over GI bleeding -- no hematemesis, coffee-ground emesis or melena no abd pain denies any dyspnea denies orthopnea Review of Systems Review of Systems: cv - no chest pain pulm - no cough or chest congestion; no dyspnea at rest GI - no vomiting Physical Exam Physical Exam: gen - NAD, resting comfortably in bed skin - generalized pallor mouth - MMM neck - no JVD heart - RRR, s1 s2 lungs - CTA b/l abd - soft NT ND BS+ ext - dressings in place b/l legs from feet to just below both knees; <1+ edema b/l; pulses 2+ b/l psych - a/o x 3 Results & Data Results & Data Vital Signs (Past 12 Hours) Vital Signs Temp Pulse Resp BP Pulse Ox Pulse Ox O2 Del Method 12/02/23 09:00 63 17 98 12/02/23 09:00 97/43 L 12/02/23 08:45 66 22 100 12/02/23 08:45 116/49 L 12/02/23 08:44 67 16 99 12/02/23 08:44 107/57 L 12/02/23 08:30 105/44 L 12/02/23 08:30 60 18 95 12/02/23 08:15 99/43 L 12/02/23 08:15 64 20 97 12/02/23 08:00 88/43 L 12/02/23 08:00 62 21 97 Room Air 12/02/23 07:45 63 19 97 Room Air 12/02/23 07:45 104/45 L 12/02/23 07:30 96/37 L 12/02/23 07:30 60 18 98 Room Air 12/02/23 07:19 60 12/02/23 07:15 97/41 L 12/02/23 07:15 64 20 96 Room Air 12/02/23 07:00 65 16 100 Room Air 12/02/23 07:00 87/47 L 12/02/23 06:52 62 16 96/49 L 98 12/02/23 06:22 36.6 C 64 12 86/52 L 98 12/02/23 06:07 36.7 C 64 20 101/35 L 98 12/02/23 05:47 36.5 C 67 18 95/38 L 99 12/02/23 04:45 65 20 98 12/02/23 04:30 97/39 L 12/02/23 04:30 60 19 95 12/02/23 04:15 65 20 99 12/02/23 04:13 93/40 L 12/02/23 04:13 62 19 97 12/02/23 04:00 81/37 L 12/02/23 04:00 72 23 100 12/02/23 03:45 69 16 100 12/02/23 03:30 62 19 98 12/02/23 03:30 97/43 L 12/02/23 03:15 68 15 100 12/02/23 03:01 67 15 95 12/02/23 03:01 114/35 L 12/02/23 03:00 67 20 99 12/02/23 02:46 112/45 L 12/02/23 02:46 69 26 H 12/02/23 02:45 68 21 100 12/02/23 02:33 95 12/02/23 02:30 85/37 L 12/02/23 02:30 65 31 H 98 12/02/23 02:29 101/39 L 12/02/23 02:29 65 26 H 99 12/02/23 02:15 62 24 99 12/02/23 02:04 70 23 97 12/02/23 02:04 125/57 L 12/02/23 02:00 36.3 C L 68 18 125/57 L 98 12/02/23 02:00 68 18 98 12/02/23 01:59 68 12/02/23 01:57 66 27 H 100 12/02/23 01:40 61 21 102/50 L 100 Room Air 12/02/23 01:36 68 20 92/35 L 99 Room Air 12/02/23 01:32 78 17 77/65 L 12/02/23 01:26 68 16 88/52 L 99 Room Air 12/02/23 01:20 61 18 81/36 L 100 Room Air 12/02/23 01:15 62 16 75/37 L 99 Room Air 12/02/23 01:10 63 20 83/48 L 98 Room Air 12/02/23 01:05 65 21 93/44 L 94 Room Air 12/02/23 01:00 64 12 78/46 L 100 Room Air 12/02/23 00:55 60 20 83/45 L 99 Room Air 12/02/23 00:50 61 17 90/60 L 99 Room Air 12/02/23 00:46 36.7 C 65 22 81/36 L 97 12/02/23 00:45 64 22 94/58 L 99 Room Air 12/02/23 00:40 65 22 90/45 L 99 Room Air 12/02/23 00:35 64 24 92/48 L 99 Room Air 12/02/23 00:30 62 24 87/43 L 98 Room Air 12/02/23 00:26 36.6 C 60 19 99/49 L 99 12/02/23 00:25 60 20 87/47 L 98 Room Air 12/02/23 00:20 62 19 98/46 L 98 Room Air 12/02/23 00:15 60 20 99/49 L 99 Room Air 12/02/23 00:12 61 20 80/46 L 99 Room Air 12/02/23 00:10 63 15 71/53 L 99 Room Air 12/02/23 00:05 60 24 96/48 L 100 Room Air 12/02/23 00:00 61 21 103/45 L 98 12/02/23 00:00 61 21 103/45 L 98 Room Air 12/01/23 23:55 60 17 100/41 L 99 Room Air 12/01/23 23:50 60 19 107/47 L 99 Room Air 12/01/23 23:45 36.7 C 60 24 109/61 98 12/01/23 23:45 60 24 109/61 98 Room Air 12/01/23 23:40 61 23 95/42 L 99 Room Air 12/01/23 23:35 66 22 90/39 L 100 Room Air 12/01/23 23:30 36.5 C 66 22 90/39 L 100 12/01/23 23:30 62 23 97 Room Air 12/01/23 23:10 99/42 L 12/01/23 23:10 60 22 97 12/01/23 23:09 60 19 96 12/01/23 23:09 96/36 L Laboratory Results Laboratory Results - last 24 hr 12/01/23 12/01/23 12/01/23 18:59 19:18 20:42 WBC 6.81 RBC 2.56 L Hgb 8.1 L POC Hgb 7.5 L Hct 24.4 L POC Hct 22 L MCV 95.3 MCH 31.6 MCHC 33.2 RDW Std Deviation 53.6 H RDW Coeff of Caterina 15.3 H Plt Count 168 MPV 10.2 Immature Gran % (Auto) 0.6 Neut % (Auto) 70.2 Lymph % (Auto) 15.6 [place] % (Auto) 12.0 Eos % (Auto) 0.9 Baso % (Auto) 0.7 Neut # (Auto) 4.78 Lymph # (Auto) 1.06 L [place] # (Auto) 0.82 H Eos # (Auto) 0.06 Baso # (Auto) 0.05 Immature Gran # (Auto) 0.04 PT 25.1 H INR 2.4 H Fibrinogen POC Sodium 138 Sodium 137 POC Potassium 5.8 H Potassium 5.7 H POC Chloride 108 Chloride 110 H Carbon Dioxide 21 POC Total CO2 20 L Anion Gap 6 POC Anion Gap 17.0 POC BUN 107 H* BUN 98 H Creatinine 1.13 POC Creatinine 1.2 Est Cr Clr Drug Dosing 40.4 Est GFR ( Amer) 50.6 Est GFR (Non-Af Amer) 43.7 BUN/Creatinine Ratio 86.7 H Glucose 116 H POC Glucose (other) 117 H Lactate Calcium 8.1 L POC Ioniz Calcium Mary Grace 1.18 Magnesium 1.9 Total Bilirubin 0.6 AST 13 ALT 14 Alkaline Phosphatase 64 Troponin I High Sens 5.1 Total Protein 5.5 L Albumin 3.1 L Globulin 2.4 L Albumin/Globulin Ratio 1.3 Lipase 26 TSH 0.918 Nasal Screen MRSA (PCR) Blood Type O Positive Blood Type Recheck Antibody Screen NEGATIVE Crossmatch See Detail 12/01/23 12/02/23 12/02/23 20:55 01:57 03:10 WBC 6.46 RBC 2.41 L Hgb 7.1 L POC Hgb Hct 22.3 L POC Hct MCV 92.5 MCH 29.5 MCHC 31.8 L RDW Std Deviation 53.7 H RDW Coeff of Caterina 16.0 H Plt Count 127 L MPV 10.1 Immature Gran % (Auto) Neut % (Auto) Lymph % (Auto) [place] % (Auto) Eos % (Auto) Baso % (Auto) Neut # (Auto) Lymph # (Auto) [place] # (Auto) Eos # (Auto) Baso # (Auto) Immature Gran # (Auto) PT 15.9 H INR 1.5 H Fibrinogen 227 POC Sodium Sodium 137 POC Potassium Potassium 5.3 H POC Chloride Chloride 113 H Carbon Dioxide 17 L POC Total CO2 Anion Gap 7 POC Anion Gap POC BUN BUN 102 H Creatinine 1.17 POC Creatinine Est Cr Clr Drug Dosing 39.0 Est GFR ( Amer) 48.5 Est GFR (Non-Af Amer) 41.9 BUN/Creatinine Ratio 87.2 H Glucose 152 H POC Glucose (other) Lactate 1.5 Calcium 7.7 L POC Ioniz Calcium Mary Grace Magnesium Total Bilirubin AST ALT Alkaline Phosphatase Troponin I High Sens Total Protein Albumin Globulin Albumin/Globulin Ratio Lipase TSH Nasal Screen MRSA (PCR) Negative Blood Type Blood Type Recheck O Positive Antibody Screen Crossmatch 12/02/23 12/02/23 11:10 16:34 WBC 7.82 8.01 RBC 2.69 L 2.71 L Hgb 8.0 L 8.0 L POC Hgb Hct 24.5 L 24.7 L POC Hct MCV 91.1 91.1 MCH 29.7 29.5 MCHC 32.7 32.4 RDW Std Deviation 51.1 H 51.8 H RDW Coeff of Caterina 15.7 H 15.9 H Plt Count 124 L 122 L MPV 10.4 10.3 Immature Gran % (Auto) Neut % (Auto) Lymph % (Auto) [place] % (Auto) Eos % (Auto) Baso % (Auto) Neut # (Auto) Lymph # (Auto) [place] # (Auto) Eos # (Auto) Baso # (Auto) Immature Gran # (Auto) PT INR Fibrinogen POC Sodium Sodium POC Potassium Potassium POC Chloride Chloride Carbon Dioxide POC Total CO2 Anion Gap POC Anion Gap POC BUN BUN Creatinine POC Creatinine Est Cr Clr Drug Dosing Est GFR ( Amer) Est GFR (Non-Af Amer) BUN/Creatinine Ratio Glucose POC Glucose (other) Lactate Calcium POC Ioniz Calcium Mary Grace Magnesium Total Bilirubin AST ALT Alkaline Phosphatase Troponin I High Sens Total Protein Albumin Globulin Albumin/Globulin Ratio Lipase TSH Nasal Screen MRSA (PCR) Blood Type Blood Type Recheck Antibody Screen Crossmatch PG Care Time/CCT Total # of Minutes Spent Total Time Spent with Patient: Total time spent is greater than 50% in coordination of care (as documented) at patient's floor/unit and/or counseling patient: Coding Level of Care Code 21598 SUB INP/OBS CARE 11/13MIN Diagnoses Hemorrhagic shock R57.8 Acute GI bleeding K92.2 Acute blood loss anemia D62 Atrial fibrillation, unspecified type I48.91 Atrial fibrillation type: unspecified Essential hypertension I10 Hypertension type: essential hypertension Thrombocytopenia D69.6 Venous stasis ulcer I83.009; L97.909 (4) Atrial fibrillation Atrial fibrillation type: unspecified Qualified Code(s): I48.91 - Unspecified atrial fibrillation (5) Hypertension Hypertension type: essential hypertension Qualified Code(s): I10 - Essential (primary) hypertension
[2023-12-02 11:30] LABS: Hematocrit (blood only) 24.5 % (37.0-47.0); Mean Corpuscular Hemoglobin 29.7 pg (25.0-34.0); Mean Corpuscular Hgb Conc 32.7 g/dL (32.0-36.0); Mean Corpuscular Volume 91.1 fL (80.0-100.0); Mean Platelet Volume 10.4 fL (9.4-12.4); Platelet Count 124 K/uL (130-400); RDW Coefficient of Variation 15.7 % (11.5-14.5); RDW Standard Deviation 51.1 fL (36.4-46.3); Red Blood Count 2.69 M/uL (4.20-5.40); White Blood Count 7.82 K/ul (4.8-10.8)
--- NOTE | 2023-12-02 11:55 | Gastrointestinal Consultation ---
Date of Consultation December 02, 2023 Assessment & Plan (1) Acute blood loss anemia: Very pleasant woman with melena and anemia. She is on warfarin and her admit INR was about 2.5, now it is 1.5. She needs EGD. I have discussed the procedure and risks with her. She agrees History of Present Illness Reason for Consultation: GI bleeding Attending Physician: Dandy Meléndez MD History of Present Illness 88 year old female who started passing black stools yesterday and started feeling weak. She denies upper abdominal symptoms. She denies NSAID use. She actually feels well now. She had her last melenic stool at 4:30 this morning. She has never had EGD or colonoscopy. She still is employed Allergies Allergy/AdvReac Type Severity Reaction Status Date / Time Sulfa (Sulfonamide Allergy Severe rash Verified 12/01/23 21:29 Antibiotics) latex Allergy Intermediate Rash Verified 12/01/23 21:29 Penicillins Allergy Intermediate Rash, Verified 12/01/23 21:29 heart palpitations cephalexin AdvReac Intermediate Diarrhea Verified 12/01/23 21:29 Home Medications Medication Instructions Recorded Confirmed Type dronedarone 400 mg tablet (Multaq) 400 mg PO BID 06/19/18 12/01/23 History metoprolol succinate 50 mg 50 mg PO QAM 06/19/18 12/01/23 History tablet,extended release 24 hr (Toprol XL) multivitamin 1 tab PO QAM 06/19/18 12/01/23 History nitroglycerin 0.4 mg sublingual 0.4 mg sublingual Q5M PRN Chest 06/19/18 12/01/23 History tablet (Nitrostat) Pain biotin 10 mg tablet 10 mg PO QAM 04/05/19 12/01/23 History acetaminophen 500 mg tablet 1,000 mg PO Q6H PRN Pain 08/31/22 12/01/23 History (Tylenol Extra Strength) cholecalciferol (vitamin D3) 125 125 mcg PO QAM 08/31/22 12/01/23 History mcg (5,000 unit) tablet (Vitamin D3) Lift Chair #1 ea 09/27/22 12/01/23 Rx furosemide 20 mg tablet 20 mg PO DAILY PRN edema #90 tabs 04/07/23 12/01/23 Rx iron,carbonyl 65 mg-vitamin C 125 1 tab PO QAM 05/05/23 12/01/23 History mg tablet,delayed release (Vitron-C) warfarin 1 mg tablet (Dennytoven) See Rx Instructions .Route .COMPLEX 05/05/23 12/01/23 History hydrochlorothiazide 12.5 mg tablet 12.5 mg PO QAM #90 tabs 06/16/23 12/01/23 Rx lisinopril 10 mg tablet 10 mg PO QAM #90 tabs 08/14/23 12/01/23 Rx Patient History Medical History Pressure ulcer of left foot, stage 3 Encounter for pre-operative examination Venous stasis ulcer chronic BLLE. 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 Follows with René Block PA-C. 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 Dr. Farfan S/P Mohs surgery for basal cell carcinoma History of tonsillectomy and adenoidectomy History of arthroscopy of knee History of cataract surgery Family History Mother Cardiac disorder Father Hypertension Denies family history of Ovarian cancer Prostate cancer Myocardial infarction Breast cancer Colorectal cancer Social History Smoking Status: Never smoker Tobacco Type: Cigarettes Second Hand Exposure: No; Do You Dip or Chew Tobacco: No; Hx Alcohol Use: No Hx Substance Use: No Preferred Language: Uzbek Communication Ability: Effective Visual Impairment: No Limitations Hearing Ability: Normal Rooter Operator Required: No Beliefs That Will Affect Care: None marital status: / Current Living Situation: Alone current occupational status: employed current occupation: [employer] How many Children do You have: 3 Feels Safe at Home: Yes Childhood Exposure to Second-Hand Smoke: No Diet: regular Diet Comment: regular Dental Care, Regularly: Yes Physical Activity Frequency: Does not Exercise Seatbelt Use: always Sunscreen Use: Yes Assistive Devices: Denture - Upper and Walker Review of Systems Review of Systems: All systems reviewed & are unremarkable except as noted in HPI & below Physical Exam Constitutional: WD/WN, vitals as above Neck: trachea midline, no thyromegaly Respiratory: normal respiratory effort, lungs clear to auscultation Cardiovascular: RRR, no murmur, no edema Gastrointestinal (Abdomen): normal bowel sounds, soft, nontender, no hepatos plenomegaly Results & Data Vital Signs (Past 12 Hours) Vital Signs Temp Pulse Resp BP Pulse Ox Pulse Ox O2 Del Method 12/02/23 09:00 63 17 98 12/02/23 09:00 97/43 L 12/02/23 08:45 66 22 100 12/02/23 08:45 116/49 L 12/02/23 08:44 67 16 99 12/02/23 08:44 107/57 L 12/02/23 08:30 105/44 L 12/02/23 08:30 60 18 95 12/02/23 08:15 99/43 L 12/02/23 08:15 64 20 97 12/02/23 08:00 88/43 L 12/02/23 08:00 62 21 97 Room Air 12/02/23 07:45 63 19 97 Room Air 12/02/23 07:45 104/45 L 12/02/23 07:30 96/37 L 12/02/23 07:30 60 18 98 Room Air 12/02/23 07:19 60 12/02/23 07:15 97/41 L 12/02/23 07:15 64 20 96 Room Air 12/02/23 07:00 65 16 100 Room Air 12/02/23 07:00 87/47 L 12/02/23 06:52 62 16 96/49 L 98 12/02/23 06:22 36.6 C 64 12 86/52 L 98 12/02/23 06:07 36.7 C 64 20 101/35 L 98 12/02/23 05:47 36.5 C 67 18 95/38 L 99 12/02/23 04:45 65 20 98 12/02/23 04:30 97/39 L 12/02/23 04:30 60 19 95 12/02/23 04:15 65 20 99 12/02/23 04:13 93/40 L 12/02/23 04:13 62 19 97 12/02/23 04:00 81/37 L 12/02/23 04:00 72 23 100 12/02/23 03:45 69 16 100 12/02/23 03:30 62 19 98 12/02/23 03:30 97/43 L 12/02/23 03:15 68 15 100 12/02/23 03:01 67 15 95 12/02/23 03:01 114/35 L 12/02/23 03:00 67 20 99 12/02/23 02:46 112/45 L 12/02/23 02:46 69 26 H 12/02/23 02:45 68 21 100 12/02/23 02:33 95 12/02/23 02:30 85/37 L 12/02/23 02:30 65 31 H 98 12/02/23 02:29 101/39 L 12/02/23 02:29 65 26 H 99 12/02/23 02:15 62 24 99 12/02/23 02:04 70 23 97 12/02/23 02:04 125/57 L 12/02/23 02:00 36.3 C L 68 18 125/57 L 98 12/02/23 02:00 68 18 98 12/02/23 01:59 68 12/02/23 01:57 66 27 H 100 12/02/23 01:40 61 21 102/50 L 100 Room Air 12/02/23 01:36 68 20 92/35 L 99 Room Air 12/02/23 01:32 78 17 77/65 L 12/02/23 01:26 68 16 88/52 L 99 Room Air 12/02/23 01:20 61 18 81/36 L 100 Room Air 12/02/23 01:15 62 16 75/37 L 99 Room Air 12/02/23 01:10 63 20 83/48 L 98 Room Air 12/02/23 01:05 65 21 93/44 L 94 Room Air 12/02/23 01:00 64 12 78/46 L 100 Room Air 12/02/23 00:55 60 20 83/45 L 99 Room Air 12/02/23 00:50 61 17 90/60 L 99 Room Air 12/02/23 00:46 36.7 C 65 22 81/36 L 97 12/02/23 00:45 64 22 94/58 L 99 Room Air 12/02/23 00:40 65 22 90/45 L 99 Room Air 12/02/23 00:35 64 24 92/48 L 99 Room Air 12/02/23 00:30 62 24 87/43 L 98 Room Air 12/02/23 00:26 36.6 C 60 19 99/49 L 99 12/02/23 00:25 60 20 87/47 L 98 Room Air 12/02/23 00:20 62 19 98/46 L 98 Room Air 12/02/23 00:15 60 20 99/49 L 99 Room Air 12/02/23 00:12 61 20 80/46 L 99 Room Air 12/02/23 00:10 63 15 71/53 L 99 Room Air 12/02/23 00:05 60 24 96/48 L 100 Room Air 12/02/23 00:00 61 21 103/45 L 98 12/02/23 00:00 61 21 103/45 L 98 Room Air 12/01/23 23:55 60 17 100/41 L 99 Room Air O2 Del Method 12/02/23 09:00 12/02/23 09:00 12/02/23 08:45 12/02/23 08:45 12/02/23 08:44 12/02/23 08:44 12/02/23 08:30 12/02/23 08:30 12/02/23 08:15 12/02/23 08:15 12/02/23 08:00 12/02/23 08:00 12/02/23 07:45 12/02/23 07:45 12/02/23 07:30 12/02/23 07:30 12/02/23 07:19 12/02/23 07:15 12/02/23 07:15 12/02/23 07:00 12/02/23 07:00 12/02/23 06:52 12/02/23 06:22 12/02/23 06:07 12/02/23 05:47 12/02/23 04:45 12/02/23 04:30 12/02/23 04:30 12/02/23 04:15 12/02/23 04:13 12/02/23 04:13 12/02/23 04:00 12/02/23 04:00 12/02/23 03:45 12/02/23 03:30 12/02/23 03:30 12/02/23 03:15 12/02/23 03:01 12/02/23 03:01 12/02/23 03:00 12/02/23 02:46 12/02/23 02:46 12/02/23 02:45 12/02/23 02:33 Room Air 12/02/23 02:30 12/02/23 02:30 12/02/23 02:29 12/02/23 02:29 12/02/23 02:15 12/02/23 02:04 12/02/23 02:04 12/02/23 02:00 12/02/23 02:00 12/02/23 01:59 12/02/23 01:57 12/02/23 01:40 12/02/23 01:36 12/02/23 01:32 12/02/23 01:26 12/02/23 01:20 12/02/23 01:15 12/02/23 01:10 12/02/23 01:05 12/02/23 01:00 12/02/23 00:55 12/02/23 00:50 12/02/23 00:46 12/02/23 00:45 12/02/23 00:40 12/02/23 00:35 12/02/23 00:30 12/02/23 00:26 12/02/23 00:25 12/02/23 00:20 12/02/23 00:15 12/02/23 00:12 12/02/23 00:10 12/02/23 00:05 12/02/23 00:00 12/02/23 00:00 12/01/23 23:55 Laboratory Results Laboratory Results WBC 7.82 K/ul (4.8-10.8) 02/13/24 11:10 RBC 2.69 M/uL (4.20-5.40) L 12/02/23 11:10 Hgb 8.0 g/dl (12.0-16.0) L 12/02/23 11:10 POC Hgb 7.5 g/dl (12.0-16.0) L 12/01/23 19:18 Hct 24.5 % (37.0-47.0) L 12/02/23 11:10 POC Hct 22 % (37-47) L 12/01/23 19:18 MCV 91.1 fL (80.0-100.0) 12/02/23 11:10 MCH 29.7 pg (25.0-34.0) 12/02/23 11:10 MCHC 32.7 g/dL (32.0-36.0) 12/02/23 11:10 RDW Std Deviation 51.1 fL (36.4-46.3) H 12/02/23 11:10 RDW Coeff of Caterina 15.7 % (11.5-14.5) H 12/02/23 11:10 Plt Count 124 K/uL (130-400) L 12/02/23 11:10 MPV 10.4 fL (9.4-12.4) 12/02/23 11:10 Immature Gran % (Auto) 0.6 % 12/01/23 18:59 Neut % (Auto) 70.2 % 12/01/23 18:59 Lymph % (Auto) 15.6 % 12/01/23 18:59 [place] % (Auto) 12.0 % 12/01/23 18:59 Eos % (Auto) 0.9 % 12/01/23 18:59 Baso % (Auto) 0.7 % 12/01/23 18:59 Neut # (Auto) 4.78 K/uL (1.40-6.50) 12/01/23 18:59 Lymph # (Auto) 1.06 K/uL (1.20-3.40) L 12/01/23 18:59 [place] # (Auto) 0.82 K/uL (0.11-0.59) H 12/01/23 18:59 Eos # (Auto) 0.06 K/uL (0.00-0.50) 12/01/23 18:59 Baso # (Auto) 0.05 K/uL (0.00-0.20) 12/01/23 18:59 Immature Gran # (Auto) 0.04 K/uL (0.01-0.20) 12/01/23 18:59 PT 15.9 Seconds (9.0-12.0) H 12/02/23 03:10 INR 1.5 (0.9-1.1) H 12/02/23 03:10 Fibrinogen 227 mg/dl (184-400) 12/02/23 03:10 POC Sodium 138 mmol/L (135-144) 12/01/23 19:18 Sodium 137 mmol/L (136-145) 12/02/23 03:10 POC Potassium 5.8 mmol/L (3.3-5.0) H 12/01/23 19:18 Potassium 5.3 mmol/L (3.5-5.1) H 12/02/23 03:10 POC Chloride 108 mmol/L (101-112) 12/01/23 19:18 Chloride 113 mmol/L (98-107) H 12/02/23 03:10 Carbon Dioxide 17 mmol/L (21-32) L 12/02/23 03:10 POC Total CO2 20 mmol/L (24-31) L 12/01/23 19:18 Anion Gap 7 (3-11) 12/02/23 03:10 POC Anion Gap 17.0 mmol/L (16-25) 12/01/23 19:18 POC BUN 107 mg/dl (7-18) H* 12/01/23 19:18 BUN 102 mg/dl (6-23) H 12/02/23 03:10 Creatinine 1.17 mg/dl (0.6-1.2) 12/02/23 03:10 POC Creatinine 1.2 mg/dl (0.6-1.3) 12/01/23 19:18 Est Cr Clr Drug Dosing 39.0 ml/min 12/02/23 03:10 Est GFR ( Amer) 48.5 ml/min 12/02/23 03:10 Est GFR (Non-Af Amer) 41.9 ml/min 12/02/23 03:10 BUN/Creatinine Ratio 87.2 (10-20) H 12/02/23 03:10 Glucose 152 mg/dl (70-99(Fasting)) H 12/02/23 03:10 POC Glucose (other) 117 mg/dl (70-99) H 12/01/23 19:18 Lactate 1.5 mmol/L (0.4-2.0) 12/02/23 03:10 Calcium 7.7 mg/dl (8.6-10.3) L 12/02/23 03:10 POC Ioniz Calcium Mary Grace 1.18 mmol/l (1.12-1.32) 12/01/23 19:18 Magnesium 1.9 mg/dl (1.7-2.4) 12/01/23 18:59 Total Bilirubin 0.6 mg/dl (0.2-1.0) 12/01/23 18:59 AST 13 U/L (13-39) 12/01/23 18:59 ALT 14 U/L (7-52) 12/01/23 18:59 Alkaline Phosphatase 64 U/L (34-104) 12/01/23 18:59 Troponin I High Sens 5.1 pg/ml (0-14) 12/01/23 18:59 Total Protein 5.5 gm/dl (6.0-8.3) L 12/01/23 18:59 Albumin 3.1 gm/dl (3.4-5.0) L 12/01/23 18:59 Globulin 2.4 gm/dl (2.5-4.0) L 12/01/23 18:59 Albumin/Globulin Ratio 1.3 (0.9-2) 12/01/23 18:59 Lipase 26 U/L (11-82) 12/01/23 18:59 TSH 0.918 uIu/ml (0.300-4.500) 12/01/23 18:59 Nasal Screen MRSA (PCR) Negative (Negative) 12/02/23 01:57 Blood Type O Positive 12/01/23 20:42 Blood Type Recheck O Positive 12/01/23 20:55 Antibody Screen NEGATIVE 12/01/23 20:42 Crossmatch See Detail 12/01/23 20:42 Impressions Chest X-Ray 12/01/23 18:10 XR chest 1V portable HISTORY: weakness COMPARISON: Chest 10/02/2022. FINDINGS: Slightly rotated study. No pneumothorax. No pleural effusions. The heart remains mildly enlarged. Left basilar linear densities favor subsegmental atelectasis or scarring. Otherwise, no new focal lung consolidations to suggest a pneumonia. No evidence for pulmonary edema. Left-sided dual-chamber pacemaker again noted. No acute fractures identified. IMPRESSION: Mild cardiomegaly. Otherwise, no acute process within the chest. ACT 112: Negative or not required by law. Electronically signed by: Suman Balbuena M.D. 12/02/2023 7:18 AM Abdomen/Pelvis CT 12/01/23 19:41 Exam(s): CT ABDOMEN + PELVIS With Contrast IV Amt: cc EXAM: CT Abdomen and Pelvis With Intravenous Contrast CLINICAL HISTORY: Reason for exam: gi bleed. TECHNIQUE: Axial computed tomography images of the abdomen and pelvis with intravenous contrast. CTDI is 27.65 mGy and DLP is 1259.84 mGy-cm. Automated exposure control was utilized for the study. A dose lowering technique was utilized adhering to the principles of ALARA. CONTRAST: Patient received cc of IV contrast COMPARISON: No relevant prior studies available. FINDINGS: Lung bases: Unremarkable. No mass. No consolidation. ABDOMEN: Liver: Hepatic steatosis. Gallbladder and bile ducts: Cholecystectomy. No ductal dilation. Pancreas: Unremarkable. No mass. No ductal dilation. Spleen: Unremarkable. No splenomegaly. Adrenals: Unremarkable. No mass. Kidneys and ureters: Multiple stones in the RIGHT renal pelvis, which measure approximately 2.3 x 1.0 cm in aggregate size. No hydronephrosis. Stomach and bowel: Diverticulosis, without acute diverticulitis. No small bowel obstruction. No free intraperitoneal air. PELVIS: Appendix: No findings to suggest acute appendicitis. Bladder: Unremarkable. Normal urinary bladder. Reproductive: Unremarkable as visualized. ABDOMEN and PELVIS: Intraperitoneal space: Unremarkable. No free air. No significant fluid collection. Bones/joints: Degenerative changes of the spine. No acute fracture. No dislocation. Soft tissues: Unremarkable. Vasculature: Atherosclerotic changes of the aorta. No abdominal aortic aneurysm. Lymph nodes: Unremarkable. No enlarged lymph nodes. IMPRESSION: 1. Hepatic steatosis. 2. Cholecystectomy. 3. Multiple stones in the RIGHT renal pelvis, which measure approximately 2.3 x 1.0 cm in aggregate size. 4. Diverticulosis, without acute diverticulitis. No small bowel obstruction. No free intraperitoneal air. Electronically signed by: Homar Pereira MD 12/01/23 20:27 PM
--- NOTE | 2023-12-02 12:48 | Anesthesiology Consultation ---
Date of Service December 02, 2023 Assessment & Plan Consults Requested medical & cardiac Pulmonary History Surgery Operation Date: 12/02/23 17:00 Proposed Procedures p Esophagogastroduodenoscopy Dr. Anabel Little Jr, MD Height/Weight Height: 5 ft 7 in Weight: 89.4 kg Allergies Allergy/AdvReac Type Severity Reaction Status Date / Time Sulfa (Sulfonamide Allergy Severe rash Verified 12/01/23 21:29 Antibiotics) latex Allergy Intermediate Rash Verified 12/01/23 21:29 Penicillins Allergy Intermediate Rash, Verified 12/01/23 21:29 heart palpitations cephalexin AdvReac Intermediate Diarrhea Verified 12/01/23 21:29 Medications Home Medications Medication Instructions Recorded Confirmed Last Taken dronedarone 400 mg tablet (Multaq) 400 mg PO BID 06/19/18 12/01/23 12/01/23 08:00 metoprolol succinate 50 mg 50 mg PO QAM 06/19/18 12/01/23 12/01/23 tablet,extended release 24 hr (Toprol XL) multivitamin 1 tab PO QAM 06/19/18 12/01/23 12/01/23 nitroglycerin 0.4 mg sublingual 0.4 mg sublingual Q5M PRN Chest 06/19/18 12/01/23 06/23/20 tablet (Nitrostat) Pain biotin 10 mg tablet 10 mg PO QAM 04/05/19 12/01/23 12/01/23 acetaminophen 500 mg tablet 1,000 mg PO Q6H PRN Pain 08/31/22 12/01/23 05/04/23 (Tylenol Extra Strength) cholecalciferol (vitamin D3) 125 125 mcg PO QAM 08/31/22 12/01/23 12/01/23 mcg (5,000 unit) tablet (Vitamin D3) Lift Chair #1 ea 09/27/22 12/01/23 Unknown furosemide 20 mg tablet 20 mg PO DAILY PRN edema #90 tabs 04/07/23 12/01/23 Unknown iron,carbonyl 65 mg-vitamin C 125 1 tab PO QAM 05/05/23 12/01/23 12/01/23 mg tablet,delayed release (Vitron-C) warfarin 1 mg tablet (Jantoven) See Rx Instructions .Route .COMPLEX 05/05/23 12/01/23 11/30/23 hydrochlorothiazide 12.5 mg tablet 12.5 mg PO QAM #90 tabs 06/16/23 12/01/23 12/01/23 lisinopril 10 mg tablet 10 mg PO QAM #90 tabs 08/14/23 12/01/23 12/01/23 Active Medications Generic Name Dose Route Start Last Admin Trade Name Freq PRN Reason Stop Dose Admin Dronedarone 400 mg 12/02/23 09:00 12/02/23 08:50 Dronedarone Hcl 400 Mg Tab PO 01/01/24 08:59 400 mg BID SHAHEEN Administration Pantoprazole Sodium 40 mg/ 100 mls @ 20 mls/hr 12/01/23 23:17 12/02/23 08:51 Dextrose IV 12/31/23 23:16 8 mg/hr Q5H SHAHEEN 20 mls/hr Administration 8 MG/HR Acetaminophen 1,000 mg in 100 mls @ 400 mls/hr 12/02/23 03:20 12/02/23 04:26 Ofirmev IV 12/05/23 03:19 Infused Q8H PRN Infusion Pain Parenteral Electrolytes 1,000 mls @ 80 mls/hr 12/02/23 05:15 12/02/23 06:35 Plasma-Lyte A Ph 7.4 IV 01/01/24 05:14 80 mls/hr .[id number] SHAHEEN Administration NPO Date Last Intake of Fluids: 12/02/23 Time Last Intake of Fluids: 08:50 Date Last Intake of Solids: 12/01/23 Time Last Intake of Solids: 16:45 Past Medical History Medical History Pressure ulcer of left foot, stage 3 Encounter for pre-operative examination Venous stasis ulcer chronic BLLE. dressing changes at wound clinich on Tuesdays and home nursing on Fridays History of basal cell carcinoma HTN (hypertension) Pacemaker placed 2006 - .fib -- [employer] -- last check 10/2022 History of myocardial infarction 1990s Slow to wake up after anesthesia Osteoarthritis Osteopenia Multinodular goiter Hyperthyroidism Hypertension Atrial fibrillation, chronic on warfarin. Follows with René Block PA-C. 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 Dr. Farfan S/P Mohs surgery for basal cell carcinoma History of tonsillectomy and adenoidectomy History of arthroscopy of knee History of cataract surgery Social History Smoking Status: Never smoker Do You Dip or Chew Tobacco: No Hx Alcohol Use: No Hx Substance Use: No substance use type: does not use Physical Exam Vital Signs Last Vital Signs Temp 36.6 C 12/02/23 06:22 Pulse 63 12/02/23 09:00 Resp 17 12/02/23 09:00 BP 97/43 L 12/02/23 09:00 Pulse Ox 98 12/02/23 09:00 O2 Del Method Room Air 12/02/23 08:00 Testing Laboratory Results 12/02/23 11:10 12/02/23 03:10 PT 15.9 Seconds (9.0-12.0) H 12/02/23 03:10 INR 1.5 (0.9-1.1) H 12/02/23 03:10 Blood Type O Positive 12/01/23 20:42 Antibody Screen NEGATIVE 12/01/23 20:42
--- NOTE | 2023-12-02 13:04 | GI REPORT ---
Patient Name: Radha Floyd Procedure Date: 12/02/2023 12:32 PM Date of : 1935 Admit Type: Inpatient Age: 88 Gender: Female Attending MD: Megan Little MD, Procedure: Upper GI endoscopy Providers: Megan Little MD Referring MD: Dandy Meléndez Indications: Melena Medicines: Propofol per Anesthesia Complications: No immediate complications. Estimated Blood Loss: Estimated blood loss: none. Procedure: Pre-Anesthesia Assessment: - Prior to the procedure, a History and Physical was performed, and patient medications and allergies were reviewed. The patient's tolerance of previous anesthesia was also reviewed. The risks and benefits of the procedure and the sedation options and risks were discussed with the patient. All questions were answered, and informed consent was obtained. Prior Anticoagulants: The patient has taken Coumadin (warfarin), last dose was 1 day prior to procedure. ASA Grade Assessment: III - A patient with severe systemic disease. After reviewing the risks and benefits, the patient was deemed in satisfactory condition to undergo the procedure. After obtaining informed consent, the endoscope was passed under direct vision. Throughout the procedure, the patient's blood pressure, pulse, and oxygen saturations were monitored continuously. The Endoscope was introduced through the mouth, and advanced to the second part of duodenum. The upper GI endoscopy was accomplished without difficulty. The patient tolerated the procedure well. Findings: The esophagus was normal. One non-bleeding cratered gastric ulcer with pigmented material was found in the cardia. The lesion was 10 mm in largest dimension. Under normal circumstances I would probably inject or cauterize this lesion however the position of the ulcer makes treatment risky and likely to cause trouble as not able to approach the ulcer directly--only on retroflexed view. Diffuse moderately erythematous mucosa without bleeding was found in the prepyloric region of the stomach. The exam of the stomach was otherwise normal. The examined duodenum was normal. Impression: - Normal esophagus. - Non-bleeding gastric ulcer with pigmented material. - Erythematous mucosa in the prepyloric region of the stomach. - Normal examined duodenum. - No specimens collected. Recommendation: - Return patient to ICU for ongoing care. Megan Little MD 12/02/2023 1:04:12 PM Note Initiated On: 12/02/2023 12:32 PM Number of Addenda: 0 I attest to the content of the Intraoperative Record and orders documented therein, exceptions below {[id number]}
--- NOTE | 2023-12-02 13:31 | Anesthesiology Progress Note ---
Date of Service December 02, 2023 Anesthesia Post Procedure Vital Signs Vital Signs: Temp Pulse Resp BP Pulse Ox Pulse Ox O2 Del Method 12/02/23 09:00 63 17 98 12/02/23 09:00 97/43 L 12/02/23 08:45 66 22 100 12/02/23 08:45 116/49 L 12/02/23 08:44 67 16 99 12/02/23 08:44 107/57 L 12/02/23 08:30 105/44 L 12/02/23 08:30 60 18 95 12/02/23 08:15 99/43 L 12/02/23 08:15 64 20 97 12/02/23 08:00 88/43 L 12/02/23 08:00 62 21 97 Room Air 12/02/23 07:45 63 19 97 Room Air 12/02/23 07:45 104/45 L 12/02/23 07:30 96/37 L 12/02/23 07:30 60 18 98 Room Air 12/02/23 07:19 60 12/02/23 07:15 97/41 L 12/02/23 07:15 64 20 96 Room Air 12/02/23 07:00 65 16 100 Room Air 12/02/23 07:00 87/47 L 12/02/23 06:52 62 16 96/49 L 98 12/02/23 06:22 36.6 C 64 12 86/52 L 98 12/02/23 06:07 36.7 C 64 20 101/35 L 98 12/02/23 05:47 36.5 C 67 18 95/38 L 99 12/02/23 04:45 65 20 98 12/02/23 04:30 97/39 L 12/02/23 04:30 60 19 95 12/02/23 04:15 65 20 99 12/02/23 04:13 93/40 L 12/02/23 04:13 62 19 97 12/02/23 04:00 81/37 L 12/02/23 04:00 72 23 100 12/02/23 03:45 69 16 100 12/02/23 03:30 62 19 98 12/02/23 03:30 97/43 L 12/02/23 03:15 68 15 100 12/02/23 03:01 67 15 95 12/02/23 03:01 114/35 L 0213/24 03:00 67 20 99 12/02/23 02:46 112/45 L 12/02/23 02:46 69 26 H 12/02/23 02:45 68 21 100 12/02/23 02:33 95 12/02/23 02:30 85/37 L 12/02/23 02:30 65 31 H 98 12/02/23 02:29 101/39 L 12/02/23 02:29 65 26 H 99 12/02/23 02:15 62 24 99 12/02/23 02:04 70 23 97 12/02/23 02:04 125/57 L 12/02/23 02:00 36.3 C L 68 18 125/57 L 98 12/02/23 02:00 68 18 98 12/02/23 01:59 68 12/02/23 01:57 66 27 H 100 12/02/23 01:40 61 21 102/50 L 100 Room Air 12/02/23 01:36 68 20 92/35 L 99 Room Air 12/02/23 01:32 78 17 77/65 L 12/02/23 01:26 68 16 88/52 L 99 Room Air 12/02/23 01:20 61 18 81/36 L 100 Room Air 12/02/23 01:15 62 16 75/37 L 99 Room Air 12/02/23 01:10 63 20 83/48 L 98 Room Air 12/02/23 01:05 65 21 93/44 L 94 Room Air 12/02/23 01:00 64 12 78/46 L 100 Room Air 12/02/23 00:55 60 20 83/45 L 99 Room Air 12/02/23 00:50 61 17 90/60 L 99 Room Air 12/02/23 00:46 36.7 C 65 22 81/36 L 97 12/02/23 00:45 64 22 94/58 L 99 Room Air 12/02/23 00:40 65 22 90/45 L 99 Room Air 12/02/23 00:35 64 24 92/48 L 99 Room Air 12/02/23 00:30 62 24 87/43 L 98 Room Air 12/02/23 00:26 36.6 C 60 19 99/49 L 99 12/02/23 00:25 60 20 87/47 L 98 Room Air 12/02/23 00:20 62 19 98/46 L 98 Room Air 12/02/23 00:15 60 20 99/49 L 99 Room Air 12/02/23 00:12 61 20 80/46 L 99 Room Air 12/02/23 00:10 63 15 71/53 L 99 Room Air 12/02/23 00:05 60 24 96/48 L 100 Room Air 12/02/23 00:00 61 21 103/45 L 98 12/02/23 00:00 61 21 103/45 L 98 Room Air 12/01/23 23:55 60 17 100/41 L 99 Room Air 12/01/23 23:50 60 19 107/47 L 99 Room Air 12/01/23 23:45 36.7 C 60 24 109/61 98 12/01/23 23:45 60 24 109/61 98 Room Air 12/01/23 23:40 61 23 95/42 L 99 Room Air 12/01/23 23:35 66 22 90/39 L 100 Room Air 12/01/23 23:30 36.5 C 66 22 90/39 L 100 12/01/23 23:30 62 23 97 Room Air 12/01/23 23:10 99/42 L 12/01/23 23:10 60 22 97 12/01/23 23:09 60 19 96 12/01/23 23:09 96/36 L 12/01/23 23:06 60 27 H 97 12/01/23 23:06 79/35 L 12/01/23 23:01 36.4 C 60 18 95/38 L 98 12/01/23 23:00 60 24 93 12/01/23 23:00 95/38 L 12/01/23 22:59 88/47 L 12/01/23 22:59 60 24 97 12/01/23 22:55 99/41 L 12/01/23 22:55 60 22 97 12/01/23 22:50 60 21 95 12/01/23 22:50 87/41 L 12/01/23 22:48 90/40 L 12/01/23 22:48 60 23 97 12/01/23 22:45 94/42 L 12/01/23 22:45 60 20 100 12/01/23 22:43 36.9 C 61 18 100/44 L 100 12/01/23 22:40 60 23 100 12/01/23 22:40 100/44 L 12/01/23 22:35 60 23 98 12/01/23 22:35 97/37 L 12/01/23 22:30 60 20 97 12/01/23 22:30 110/49 L 12/01/23 22:25 106/50 L 12/01/23 22:25 60 20 98 12/01/23 22:20 63 26 H 98 12/01/23 22:20 97/74 L 12/01/23 22:15 66 22 99 12/01/23 22:15 106/42 L 12/01/23 22:11 111/38 L 12/01/23 22:11 60 21 98 12/01/23 22:10 65 18 98 12/01/23 22:05 104/44 L 12/01/23 22:05 71 25 H 99 12/01/23 22:00 61 23 97 12/01/23 22:00 110/61 12/01/23 21:55 60 20 99 12/01/23 21:55 83/44 L 12/01/23 21:51 99/44 L 12/01/23 21:51 64 20 98 12/01/23 21:50 78/42 L 12/01/23 21:50 60 21 100 12/01/23 21:49 60 19 99 12/01/23 21:49 85/46 L 12/01/23 21:45 60 24 99 12/01/23 21:45 86/41 L 12/01/23 21:40 60 20 98 12/01/23 21:40 97/43 L 12/01/23 21:39 82/43 L 12/01/23 21:39 60 18 100 12/01/23 21:35 70 17 99 12/01/23 21:35 104/49 L 12/01/23 21:30 67 17 99 12/01/23 21:30 115/52 L 12/01/23 21:25 73 20 99 12/01/23 21:25 127/70 12/01/23 21:20 75 24 99 12/01/23 21:20 101/66 12/01/23 21:15 73 22 97 12/01/23 21:15 112/60 12/01/23 21:10 70 19 100 12/01/23 21:10 120/58 L 12/01/23 21:05 61 19 100 12/01/23 21:05 105/47 L 12/01/23 21:00 67 9 L 97 12/01/23 21:00 110/50 L 12/01/23 20:55 99/56 L 12/01/23 20:55 65 27 H 99 12/01/23 20:50 118/49 L 12/01/23 20:50 71 16 99 12/01/23 20:45 71 21 100 12/01/23 20:45 123/64 12/01/23 20:40 68 25 H 98 12/01/23 20:40 125/75 12/01/23 20:35 127/52 L 12/01/23 20:35 71 20 99 12/01/23 20:30 62 24 99 12/01/23 20:30 96/58 L 12/01/23 20:25 62 23 99 12/01/23 20:25 106/52 L 12/01/23 20:20 61 19 99 12/01/23 20:20 107/51 L 12/01/23 20:15 60 18 98 12/01/23 20:15 114/50 L 12/01/23 20:10 118/60 12/01/23 20:10 61 18 99 12/01/23 20:07 121/50 L 12/01/23 19:55 112/61 12/01/23 19:54 67 20 12/01/23 19:50 66 20 98 12/01/23 19:50 110/48 L 12/01/23 19:35 117/56 L 12/01/23 19:35 66 18 97 12/01/23 19:30 66 18 99 12/01/23 19:30 106/68 12/01/23 19:25 60 21 99 12/01/23 19:25 103/52 L 12/01/23 19:21 60 20 98 12/01/23 19:21 100/53 L 12/01/23 19:20 60 26 H 99 12/01/23 19:20 93/45 L 12/01/23 19:17 99/45 L 12/01/23 19:17 60 21 99 12/01/23 19:15 60 18 99 12/01/23 19:15 80/39 L 12/01/23 19:11 86/40 L 12/01/23 19:11 60 22 97 12/01/23 19:10 60 22 100 12/01/23 19:08 74/46 L 12/01/23 19:08 60 21 99 12/01/23 19:07 60 22 100 12/01/23 19:07 87/39 L 12/01/23 19:05 60 21 82 L 12/01/23 19:05 70/39 L 12/01/23 19:02 61 24 91 12/01/23 19:02 71/38 L 12/01/23 19:00 61 24 12/01/23 18:57 61 12/01/23 18:57 60 23 98 12/01/23 18:29 36.3 C L 68 18 115/56 L 98 Room Air O2 Del Method 12/02/23 09:00 12/02/23 09:00 12/02/23 08:45 12/02/23 08:45 12/02/23 08:44 12/02/23 08:44 12/02/23 08:30 12/02/23 08:30 12/02/23 08:15 12/02/23 08:15 12/02/23 08:00 12/02/23 08:00 12/02/23 07:45 12/02/23 07:45 12/02/23 07:30 12/02/23 07:30 12/02/23 07:19 12/02/23 07:15 12/02/23 07:15 12/02/23 07:00 12/02/23 07:00 12/02/23 06:52 12/02/23 06:22 12/02/23 06:07 12/02/23 05:47 12/02/23 04:45 12/02/23 04:30 12/02/23 04:30 12/02/23 04:15 12/02/23 04:13 12/02/23 04:13 12/02/23 04:00 12/02/23 04:00 12/02/23 03:45 12/02/23 03:30 12/02/23 03:30 12/02/23 03:15 12/02/23 03:01 12/02/23 03:01 12/02/23 03:00 12/02/23 02:46 12/02/23 02:46 12/02/23 02:45 12/02/23 02:33 Room Air 12/02/23 02:30 12/02/23 02:30 12/02/23 02:29 12/02/23 02:29 12/02/23 02:15 12/02/23 02:04 12/02/23 02:04 12/02/23 02:00 12/02/23 02:00 12/02/23 01:59 12/02/23 01:57 12/02/23 01:40 12/02/23 01:36 12/02/23 01:32 12/02/23 01:26 12/02/23 01:20 12/02/23 01:15 12/02/23 01:10 12/02/23 01:05 12/02/23 01:00 12/02/23 00:55 12/02/23 00:50 12/02/23 00:46 12/02/23 00:45 12/02/23 00:40 12/02/23 00:35 12/02/23 00:30 12/02/23 00:26 12/02/23 00:25 12/02/23 00:20 12/02/23 00:15 12/02/23 00:12 12/02/23 00:10 12/02/23 00:05 12/02/23 00:00 12/02/23 00:00 12/01/23 23:55 12/01/23 23:50 12/01/23 23:45 12/01/23 23:45 12/01/23 23:40 12/01/23 23:35 12/01/23 23:30 12/01/23 23:30 12/01/23 23:10 12/01/23 23:10 12/01/23 23:09 12/01/23 23:09 12/01/23 23:06 12/01/23 23:06 12/01/23 23:01 12/01/23 23:00 12/01/23 23:00 12/01/23 22:59 12/01/23 22:59 12/01/23 22:55 12/01/23 22:55 12/01/23 22:50 12/01/23 22:50 12/01/23 22:48 12/01/23 22:48 12/01/23 22:45 12/01/23 22:45 12/01/23 22:43 12/01/23 22:40 12/01/23 22:40 12/01/23 22:35 12/01/23 22:35 12/01/23 22:30 12/01/23 22:30 12/01/23 22:25 12/01/23 22:25 12/01/23 22:20 12/01/23 22:20 12/01/23 22:15 12/01/23 22:15 12/01/23 22:11 12/01/23 22:11 12/01/23 22:10 12/01/23 22:05 12/01/23 22:05 12/01/23 22:00 12/01/23 22:00 12/01/23 21:55 12/01/23 21:55 12/01/23 21:51 12/01/23 21:51 12/01/23 21:50 12/01/23 21:50 12/01/23 21:49 12/01/23 21:49 12/01/23 21:45 12/01/23 21:45 12/01/23 21:40 12/01/23 21:40 12/01/23 21:39 12/01/23 21:39 12/01/23 21:35 12/01/23 21:35 12/01/23 21:30 12/01/23 21:30 12/01/23 21:25 12/01/23 21:25 12/01/23 21:20 12/01/23 21:20 12/01/23 21:15 12/01/23 21:15 12/01/23 21:10 12/01/23 21:10 12/01/23 21:05 12/01/23 21:05 12/01/23 21:00 12/01/23 21:00 12/01/23 20:55 12/01/23 20:55 12/01/23 20:50 12/01/23 20:50 12/01/23 20:45 12/01/23 20:45 12/01/23 20:40 12/01/23 20:40 12/01/23 20:35 12/01/23 20:35 12/01/23 20:30 12/01/23 20:30 12/01/23 20:25 12/01/23 20:25 12/01/23 20:20 12/01/23 20:20 12/01/23 20:15 12/01/23 20:15 12/01/23 20:10 12/01/23 20:10 12/01/23 20:07 12/01/23 19:55 12/01/23 19:54 12/01/23 19:50 12/01/23 19:50 12/01/23 19:35 12/01/23 19:35 12/01/23 19:30 12/01/23 19:30 12/01/23 19:25 12/01/23 19:25 12/01/23 19:21 12/01/23 19:21 12/01/23 19:20 12/01/23 19:20 12/01/23 19:17 12/01/23 19:17 12/01/23 19:15 12/01/23 19:15 12/01/23 19:11 12/01/23 19:11 12/01/23 19:10 12/01/23 19:08 12/01/23 19:08 12/01/23 19:07 12/01/23 19:07 12/01/23 19:05 12/01/23 19:05 12/01/23 19:02 12/01/23 19:02 12/01/23 19:00 12/01/23 18:57 12/01/23 18:57 12/01/23 18:29 Pain Intensity Left Shoulder: Pain Intensity: 5 Transfer of Care Handoff Completed per policy Notes Mental Status: alert / awake / arousable and participated in evaluation Nausea / Vomiting: adequately controlled Pain: adequately controlled Airway Patency, RR, SpO2: stable & adequate BP & HR: stable & adequate Hydration State: stable & adequate Anesthetic Complications: no major complications apparent and Pt Satisfied with anesthetic care
[2023-12-02] MEDS: ONDANSETRON INJ 2 MG/ML 2 ML VIAL ONE (14:05)
[2023-12-02] MEDS: GLYCOPYRROLATE 0.2 MG/ML VIAL ONE (14:05)
[2023-12-02] MEDS: LIDOCAINE 2% 2 ML VIAL/AMP(20MG/ML) INFIL ONE (14:05)
[2023-12-02] MEDS: PROPOFOL IV EMULSION 10 MG/ML 20 ML VIAL IV ONE (14:05)
[2023-12-02] MEDS: ePHEDrine sulfate 50 MG/5 ML SYR ONE (14:06)
[2023-12-02 16:59] LABS: Hematocrit (blood only) 24.7 % (37.0-47.0); Mean Corpuscular Hemoglobin 29.5 pg (25.0-34.0); Mean Corpuscular Hgb Conc 32.4 g/dL (32.0-36.0); Mean Corpuscular Volume 91.1 fL (80.0-100.0); Mean Platelet Volume 10.3 fL (9.4-12.4); Platelet Count 122 K/uL (130-400); RDW Coefficient of Variation 15.9 % (11.5-14.5); RDW Standard Deviation 51.8 fL (36.4-46.3); Red Blood Count 2.71 M/uL (4.20-5.40); White Blood Count 8.01 K/ul (4.8-10.8)
[2023-12-03 05:36] LABS: Calcium 7.8 mg/dl (8.6-10.3); Creatinine Clr Calc Pharmacy 42.1 ml/min; Est GFR (African American) 53.5 ml/min; Est GFR (Non-African American) 46.1 ml/min; Potassium 4.7 mmol/L (3.5-5.1)
[2023-12-03 05:42] LABS: Hematocrit (blood only) 20.8 % (37.0-47.0); Hemoglobin 6.8 g/dl (12.0-16.0); Mean Corpuscular Hemoglobin 29.8 pg (25.0-34.0); Mean Corpuscular Hgb Conc 32.7 g/dL (32.0-36.0); Mean Corpuscular Volume 91.2 fL (80.0-100.0); Mean Platelet Volume 10.3 fL (9.4-12.4); Platelet Count 115 K/uL (130-400); RDW Coefficient of Variation 16.2 % (11.5-14.5); RDW Standard Deviation 53.3 fL (36.4-46.3); Red Blood Count 2.28 M/uL (4.20-5.40); White Blood Count 6.63 K/ul (4.8-10.8)
--- NOTE | 2023-12-03 05:50 | Electrocardiogram Report ---
Test Reason : Blood Pressure : / mmHG Vent. Rate : 067 BPM Atrial Rate : 067 BPM P-R Int : 190 ms QRS Dur : 092 ms QT Int : 390 ms P-R-T Axes : 010 -07 003 degrees QTc Int : 412 ms Atrial-paced rhythm with intermittent sinus Minimal voltage criteria for LVH, may be normal variant ( R in aVL ) Inferior infarct (cited on or before 07-JUN-2007) Anterior infarct , age undetermined Abnormal ECG When compared with ECG of 31-AUG-2022 12:50, Atrial pacing is now present Confirmed by Carlos Perera ([id number]) on 12/03/2023 5:50:05 AM Referred By: REFERRED SELF Confirmed By:Carlos Perera
[2023-12-03] MEDS ORDERED: SODIUM CHLORIDE 0.9% 250 ML IV PRN ×3 (05:54→21:13)
--- NOTE | 2023-12-03 07:49 | Hospitalist Progress Note ---
Date of Service December 03, 2023 Assessment & Plan (1) Hemorrhagic shock: Plan: 2nd to #2 resolved low BP necessitated the transfer to the ICU but fortunately hypotension has not recurred (2) Acute GI bleeding: Plan: upper GI bleed 2nd to gastric ulcer appreciate GI assistance remains on PPI drip s/p 3 units in total of PRBCs since admission Coumadin reversed All antihypertensives - HCTZ, Lisinopril, Metoprolol - remain on hold Serial H/H's She passed a large amount of blood with clots this afternoon but thus far vitals remain stable and H/H are stable [id number] she was made NPO as a precautionary measure and GI was made aware of the above (3) Acute blood loss anemia: Plan: 2nd to #2 from a gastric ulcer s/p 3 units PRBCs since admission consider IV venofer while here serial CBCs (4) Gastric ulcer: Plan: as seen on EGD by Dr Little visible vessel present this was the cause of her UGI bleeding unfortunately the ulcer was in a location making treatments (injection, clips, etc) difficult thus none pursued remains on PPI drip needs screening for H pylori (5) Atrial fibrillation: Plan: Coumadin reversed with vitamin K Continue Dronedarone (6) Hypertension: Plan: all anti-hypertensives are on hold (7) Thrombocytopenia: Plan: likely consumptive in the setting of acute upper GI bleeding daily CBC platelet level remains acceptable (8) Venous stasis ulcer: Plan: b/l shins wound care consult placed & appreciated defer Rx to them chronic issue - [facility] (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: Plan: coumadin use contributing to upper GI bleeding coumadin reversed (10) Gastritis: Plan: PPI as seen on EGD 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 updated at bedside Admission and Anticipated Discharge Date Admission Date: December 01, 2023 Subjective Hb dropped to <7 this am requiring 1 unit of PRBCs despite such she had not had any stools overnight or signs of overt bleeding this afternoon, however, she did pass stool with dark-colored clots and some bright red blood made NPO when this occurred despite the above she denies any abd pain, hematemesis, coffee-ground emesis, or nausea denies chest pain or dyspnea Review of Systems Review of Systems: gen - "I don't feel bad" cv - no chest pain or orthopnea pulm - no cough or congestion Physical Exam Physical Exam: gen - NAD, resting comfortably in bed, looks similar to yesterday skin - generalized pallor mouth - MMM neck - no JVD heart - RRR, s1 s2, no murmur lungs - CTA b/l abd - soft NT ND BS+ ext - dressings in place b/l legs from feet to just below both knees; <1+ edema b/l; pulses 2+ b/l psych - a/o x 3 Results & Data Results & Data Vital Signs (Past 12 Hours) Vital Signs Temp Pulse Pulse Resp BP BP Pulse Ox 12/03/23 07:30 154/51 H 12/03/23 07:30 62 18 98 12/03/23 07:22 60 12/03/23 07:21 60 17 93 12/03/23 07:15 60 20 95 12/03/23 07:13 36.7 C 60 12/03/23 07:11 181/66 H 12/03/23 07:11 60 18 92 12/03/23 07:00 176/71 H 12/03/23 07:00 63 23 97 12/03/23 06:57 36.8 C 61 178/57 H 96 12/03/23 06:37 36.7 C 60 16 158/48 H 95 12/03/23 03:46 36.8 C 62 18 138/47 L 97 12/03/23 00:00 66 12/02/23 23:20 36.8 C 73 22 90/68 L 98 12/02/23 23:01 99/37 L 12/02/23 23:01 68 18 95 12/02/23 23:00 71 18 95 12/02/23 22:00 148/46 H 12/02/23 22:00 73 18 93 12/02/23 21:16 78 18 96 12/02/23 21:16 137/53 L 12/02/23 21:01 81 20 96 12/02/23 21:00 79 15 95 12/02/23 20:00 119/53 L 12/02/23 20:00 75 26 H 98 O2 Del Method 12/03/23 07:30 12/03/23 07:30 12/03/23 07:22 12/03/23 07:21 12/03/23 07:15 12/03/23 07:13 12/03/23 07:11 12/03/23 07:11 12/03/23 07:00 12/03/23 07:00 12/03/23 06:57 12/03/23 06:37 12/03/23 03:46 Room Air 12/03/23 00:00 12/02/23 23:20 Room Air 12/02/23 23:01 12/02/23 23:01 12/02/23 23:00 12/02/23 22:00 12/02/23 22:00 12/02/23 21:16 12/02/23 21:16 12/02/23 21:01 12/02/23 21:00 12/02/23 20:00 12/02/23 20:00 Laboratory Results Laboratory Results - last 24 hr 12/01/23 12/03/23 12/03/23 20:42 04:23 12:21 WBC 6.63 RBC 2.28 L Hgb 6.8 L* 8.0 L Hct 20.8 L* 24.8 L MCV 91.2 MCH 29.8 MCHC 32.7 RDW Std Deviation 53.3 H RDW Coeff of Caterina 16.2 H Plt Count 115 L MPV 10.3 Sodium 138 Potassium 4.7 Chloride 113 H Carbon Dioxide 20 L Anion Gap 5 BUN 68 H D Creatinine 1.08 Est Cr Clr Drug Dosing 42.1 Est GFR ( Amer) 53.5 Est GFR (Non-Af Amer) 46.1 BUN/Creatinine Ratio 63.0 H Glucose 105 H Calcium 7.8 L Magnesium 2.0 Blood Type O Positive Antibody Screen NEGATIVE Crossmatch See Detail 12/03/23 17:59 WBC RBC Hgb 8.3 L Hct 25.3 L MCV MCH MCHC RDW Std Deviation RDW Coeff of Caterina Plt Count MPV Sodium Potassium Chloride Carbon Dioxide Anion Gap BUN Creatinine Est Cr Clr Drug Dosing Est GFR ( Amer) Est GFR (Non-Af Amer) BUN/Creatinine Ratio Glucose Calcium Magnesium Blood Type Antibody Screen Crossmatch PG Care Time/CCT Total # of Minutes Spent Total Time Spent with Patient: Total time spent is greater than 50% in coordination of care (as documented) at patient's floor/unit and/or counseling patient: Coding Level of Care Code 74994 SUB INP/OBS CARE MIN Diagnoses Hemorrhagic shock R57.8 Acute GI bleeding K92.2 Acute blood loss anemia D62 Gastric ulcer K25.9 Atrial fibrillation, unspecified type I48.91 Atrial fibrillation type: unspecified Essential hypertension I10 Hypertension type: essential hypertension Thrombocytopenia D69.6 Venous stasis ulcer I83.009; L97.909 Hemorrhagic disorder due to extrinsic circulating anticoagulants D68.32 Gastritis K29.70 (5) Atrial fibrillation Atrial fibrillation type: unspecified Qualified Code(s): I48.91 - Unspecified atrial fibrillation (6) Hypertension Hypertension type: essential hypertension Qualified Code(s): I10 - Essential (primary) hypertension
[2023-12-03 12:56] LABS: Hematocrit (blood only) 24.8 % (37.0-47.0)
--- NOTE | 2023-12-03 13:04 | Gastroenterology Progress Note ---
Date of Service December 03, 2023 Assessment & Plan (1) Acute GI bleeding: Plan: I think the drop in her H/H was related to equilibration. She has manifested no bleeding. Will continue to follow. Would keep on clear liquids one more day Admission and Anticipated Discharge Date Admission Date: December 01, 2023 Subjective She looks well. Her hemoglobin fell to 6.8 overnight but she has not had any melena nor any stools. Hemoglobin corrected to 8 with only one unit Physical Exam Physical Exam: she looks comfortable Constitutional: WD/WN, vitals as above Results & Data Vital Signs (Past 12 Hours) Vital Signs Temp Pulse Pulse Resp BP BP Pulse Ox 12/03/23 12:24 68 12/03/23 12:01 18 97 12/03/23 12:01 149/60 H 12/03/23 12:00 60 24 96 12/03/23 11:30 67 20 97 12/03/23 11:01 151/55 H 12/03/23 11:01 60 17 93 12/03/23 11:00 61 18 94 12/03/23 10:30 60 16 93 12/03/23 10:01 60 17 96 12/03/23 10:01 169/56 H 12/03/23 10:00 68 23 96 12/03/23 09:51 70 27 H 98 12/03/23 09:51 162/70 H 12/03/23 09:41 198/52 H 12/03/23 09:41 64 32 H 95 12/03/23 09:30 169/60 H 12/03/23 09:30 61 15 99 12/03/23 09:21 62 19 98 12/03/23 09:21 145/70 H 12/03/23 09:10 155/60 H 12/03/23 09:10 60 19 95 12/03/23 09:00 150/54 H 12/03/23 09:00 60 17 95 12/03/23 08:50 149/58 H 12/03/23 08:50 60 18 95 12/03/23 08:40 152/56 H 12/03/23 08:40 60 18 94 12/03/23 08:31 164/55 H 12/03/23 08:31 60 16 97 12/03/23 08:30 60 20 98 12/03/23 08:21 60 16 93 12/03/23 08:21 152/51 H 12/03/23 08:10 164/52 H 12/03/23 08:10 60 18 94 12/03/23 08:00 147/52 H 12/03/23 08:00 60 15 95 12/03/23 07:50 134/60 12/03/23 07:50 60 17 93 12/03/23 07:41 60 18 94 12/03/23 07:41 143/52 H 12/03/23 07:30 154/51 H 12/03/23 07:30 62 18 98 12/03/23 07:28 36.6 C 12/03/23 07:22 60 12/03/23 07:21 60 17 93 12/03/23 07:15 60 20 95 12/03/23 07:13 36.7 C 60 12/03/23 07:11 181/66 H 12/03/23 07:11 60 18 92 12/03/23 07:00 176/71 H 12/03/23 07:00 63 23 97 12/03/23 06:57 36.8 C 61 178/57 H 96 12/03/23 06:37 36.7 C 60 16 158/48 H 95 12/03/23 03:46 36.8 C 62 18 138/47 L 97 O2 Del Method 12/03/23 12:24 12/03/23 12:01 12/03/23 12:01 12/03/23 12:00 12/03/23 11:30 12/03/23 11:01 12/03/23 11:01 12/03/23 11:00 12/03/23 10:30 12/03/23 10:01 12/03/23 10:01 12/03/23 10:00 12/03/23 09:51 12/03/23 09:51 12/03/23 09:41 12/03/23 09:41 12/03/23 09:30 12/03/23 09:30 12/03/23 09:21 12/03/23 09:21 12/03/23 09:10 12/03/23 09:10 12/03/23 09:00 12/03/23 09:00 12/03/23 08:50 12/03/23 08:50 12/03/23 08:40 12/03/23 08:40 12/03/23 08:31 12/03/23 08:31 12/03/23 08:30 12/03/23 08:21 12/03/23 08:21 12/03/23 08:10 12/03/23 08:10 12/03/23 08:00 12/03/23 08:00 12/03/23 07:50 12/03/23 07:50 12/03/23 07:41 12/03/23 07:41 12/03/23 07:30 12/03/23 07:30 12/03/23 07:28 12/03/23 07:22 12/03/23 07:21 12/03/23 07:15 12/03/23 07:13 12/03/23 07:11 12/03/23 07:11 12/03/23 07:00 12/03/23 07:00 12/03/23 06:57 12/03/23 06:37 12/03/23 03:46 Room Air
[2023-12-03 18:34] LABS: Hematocrit (blood only) 25.3 % (37.0-47.0); Hemoglobin 8.3 g/dl (12.0-16.0)
[2023-12-03] MEDS: ACETAMINOPHEN 1,000 MG/100 ML VIAL IV SCH (20:59)
[2023-12-04 01:16] LABS: Hematocrit (blood only) 24.8 % (37.0-47.0); Hemoglobin 7.8 g/dl (12.0-16.0)
[2023-12-04 06:56] LABS: Hematocrit (blood only) 23.7 % (37.0-47.0); Hemoglobin 7.7 g/dl (12.0-16.0); Mean Corpuscular Hemoglobin 29.3 pg (25.0-34.0); Mean Corpuscular Hgb Conc 32.5 g/dL (32.0-36.0); Mean Corpuscular Volume 90.1 fL (80.0-100.0); Platelet Count 116 K/uL (130-400); RDW Coefficient of Variation 17.4 % (11.5-14.5); RDW Standard Deviation 56.2 fL (36.4-46.3); Red Blood Count 2.63 M/uL (4.20-5.40); White Blood Count 5.21 K/ul (4.8-10.8)
[2023-12-04 07:32] LABS: BUN Creatinine Ratio 36.5 (10-20); Calcium 8.2 mg/dl (8.6-10.3); Creatinine Clr Calc Pharmacy 52.4 ml/min; Est GFR (African American) 71.4 ml/min; Est GFR (Non-African American) 61.6 ml/min; Potassium 4.2 mmol/L (3.5-5.1)
[2023-12-04 12:11] LABS: Hematocrit (blood only) 25.2 % (37.0-47.0)
--- NOTE | 2023-12-04 14:04 | Hospitalist Progress Note ---
Date of Service December 04, 2023 Assessment & Plan (1) Hemorrhagic shock: Plan: 2nd to #2 resolved low BP necessitated the transfer to the ICU earlier this week (2) Acute GI bleeding: Plan: upper GI bleed 2nd to gastric ulcer appreciate GI assistance remains on PPI drip s/p 3 units in total of PRBCs since admission Coumadin reversed HCTZ, Lisinopril, Metoprolol - remain on hold Serial H/H's today acceptable I corresponded with GI - ok to resume clears again (3) Acute blood loss anemia: Plan: 2nd to #2 from a gastric ulcer s/p 3 units PRBCs since admission plan 3 doses of IV venofer 300mg, first dose today CBC am (4) Gastric ulcer: Plan: as seen on EGD by Dr Little visible vessel present this was the cause of her UGI bleeding unfortunately the ulcer was in a location making treatments (injection, clips, etc) difficult thus none pursued remains on PPI drip needs screening for H pylori (5) Atrial fibrillation: Plan: Coumadin reversed with vitamin K Continue Dronedarone (6) Hypertension: Plan: all anti-hypertensives are on hold Bps acceptable (7) Thrombocytopenia: Plan: likely consumptive in the setting of acute upper GI bleeding daily CBC platelet level remains acceptable (8) Venous stasis ulcer: Plan: b/l shins wound care following for dressings this is a chronic issue - [facility] in [place] (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: Plan: coumadin use contributing to upper GI bleeding coumadin reversed (10) Gastritis: Plan: PPI as seen on EGD Plan PT, OT hopefully can advance diet again tomorrow if H/H remain stable Admission and Anticipated Discharge Date Admission Date: December 01, 2023 Subjective no events overnight since I saw her yesterday she has had no melena stools or BRBPR no coffee-ground emesis no abd pain no dizziness or lightheadedness no hematemesis only complaint is that of knee pain b/l (chronic) she is hungry Review of Systems Review of Systems: cv - no chest pain pulm - no dyspnea or NICHOLAS Physical Exam Physical Exam: gen - NAD, sitting in chair, looks good skin - generalized pallor mouth - MMM neck - no JVD heart - RRR, s1 s2, no murmur lungs - CTA b/l abd - soft NT ND BS+ ext - dressings in place b/l legs; <1+ edema b/l; pulses 2+ b/l psych - a/o x 3 Results & Data Results & Data Vital Signs (Past 12 Hours) Vital Signs Temp Pulse Resp BP Pulse Ox 12/04/23 13:17 36.8 C 12/04/23 12:00 62 24 12/04/23 11:54 125/61 12/04/23 11:54 61 16 12/04/23 11:30 60 19 12/04/23 11:00 61 15 12/04/23 10:30 62 17 12/04/23 10:00 64 23 12/04/23 09:30 60 17 12/04/23 09:00 60 18 95 12/04/23 08:40 36.4 C L 12/04/23 08:30 60 15 96 12/04/23 08:00 60 12/04/23 08:00 60 12 97 12/04/23 08:00 114/53 L 12/04/23 07:30 60 15 93 12/04/23 07:00 60 14 94 12/04/23 06:46 60 17 97 12/04/23 06:46 108/49 L 12/04/23 06:30 60 15 97 12/04/23 06:00 60 14 94 12/04/23 05:30 60 17 95 12/04/23 05:00 60 15 97 12/04/23 04:30 60 17 98 12/04/23 04:01 128/55 L 12/04/23 04:01 60 17 95 12/04/23 04:00 60 17 93 12/04/23 04:00 36.7 C 12/04/23 03:00 60 17 92 Laboratory Results Laboratory Results - last 24 hr 12/03/23 12/04/23 12/04/23 17:59 00:19 06:31 WBC 5.21 RBC 2.63 L Hgb 8.3 L 7.8 L 7.7 L Hct 25.3 L 24.8 L 23.7 L MCV 90.1 MCH 29.3 MCHC 32.5 RDW Std Deviation 56.2 H RDW Coeff of Caterina 17.4 H Plt Count 116 L MPV 10.0 Sodium 139 Potassium 4.2 Chloride 111 H Carbon Dioxide 23 Anion Gap 5 BUN 31 H D Creatinine 0.85 Est Cr Clr Drug Dosing 52.4 Est GFR ( Amer) 71.4 Est GFR (Non-Af Amer) 61.6 BUN/Creatinine Ratio 36.5 H Glucose 101 H POC Glucose Calcium 8.2 L 12/04/23 12/04/23 11:47 12:12 WBC RBC Hgb 8.0 L Hct 25.2 L MCV MCH MCHC RDW Std Deviation RDW Coeff of Caterina Plt Count MPV Sodium Potassium Chloride Carbon Dioxide Anion Gap BUN Creatinine Est Cr Clr Drug Dosing Est GFR ( Amer) Est GFR (Non-Af Amer) BUN/Creatinine Ratio Glucose POC Glucose 116 H Calcium PG Care Time/CCT Total # of Minutes Spent Total Time Spent with Patient: Total time spent is greater than 50% in coordination of care (as documented) at patient's floor/unit and/or counseling patient: Coding Level of Care Code 91226 SUB INP/OBS CARE 2/35MIN Diagnoses Hemorrhagic shock R57.8 Acute GI bleeding K92.2 Acute blood loss anemia D62 Gastric ulcer K25.9 Atrial fibrillation, unspecified type I48.91 Atrial fibrillation type: unspecified Essential hypertension I10 Hypertension type: essential hypertension Thrombocytopenia D69.6 Venous stasis ulcer I83.009; L97.909 Hemorrhagic disorder due to extrinsic circulating anticoagulants D68.32 Gastritis K29.70 (5) Atrial fibrillation Atrial fibrillation type: unspecified Qualified Code(s): I48.91 - Unspecified atrial fibrillation (6) Hypertension Hypertension type: essential hypertension Qualified Code(s): I10 - Essential (primary) hypertension
--- NOTE | 2023-12-04 14:28 | Gastroenterology Progress Note ---
Date of Service December 04, 2023 Assessment & Plan (1) Acute GI bleeding: Plan: I think the blood she passed yesterday was the blood that caused the fall in her H/H the other day. She is no longer passing blood. Would continue IV PPI one more day and then switch to oral meds. Advance diet if she remains stable. I go off service after today so if GI needed please call GI strike on machine operator. Admission and Anticipated Discharge Date Admission Date: December 01, 2023 Subjective Passed blood yesterday but stable now. H/H have remained stable. Feels good Physical Exam Physical Exam: She looks well Results & Data Vital Signs (Past 12 Hours) Vital Signs Temp Pulse Resp BP Pulse Ox 12/04/23 13:17 36.8 C 12/04/23 12:00 62 24 12/04/23 11:54 125/61 12/04/23 11:54 61 16 12/04/23 11:30 60 19 12/04/23 11:00 61 15 12/04/23 10:30 62 17 12/04/23 10:00 64 23 12/04/23 09:30 60 17 12/04/23 09:00 60 18 95 12/04/23 08:40 36.4 C L 12/04/23 08:30 60 15 96 12/04/23 08:00 60 12/04/23 08:00 60 12 97 12/04/23 08:00 114/53 L 12/04/23 07:30 60 15 93 12/04/23 07:00 60 14 94 12/04/23 06:46 60 17 97 12/04/23 06:46 108/49 L 12/04/23 06:30 60 15 97 12/04/23 06:00 60 14 94 12/04/23 05:30 60 17 95 12/04/23 05:00 60 15 97 12/04/23 04:30 60 17 98 12/04/23 04:01 128/55 L 12/04/23 04:01 60 17 95 12/04/23 04:00 60 17 93 12/04/23 04:00 36.7 C 12/04/23 03:00 60 17 92
[2023-12-04] MEDS: IRON SUCROSE 300 MG in SODIUM CHLORIDE 0.9% 250 ML IV ONE (15:31)
[2023-12-04 18:58] LABS: Hematocrit (blood only) 24.5 % (37.0-47.0); Hemoglobin 7.9 g/dl (12.0-16.0)
[2023-12-04 19:21] LABS: INR 1.1 (0.9-1.1); Prothrombin Time 12.2 Seconds (9.0-12.0)
[2023-12-04] MEDS: lisinopril 10 MG TAB PO ONE (20:45)
[2023-12-04] MEDS: METOPROLOL SUCC 50MG EXT REL TAB PO STA (20:45)
[2023-12-05 04:47] LABS: Hematocrit (blood only) 23.3 % (37.0-47.0); Hemoglobin 7.5 g/dl (12.0-16.0); Mean Corpuscular Hemoglobin 29.2 pg (25.0-34.0); Mean Corpuscular Hgb Conc 32.2 g/dL (32.0-36.0); Mean Corpuscular Volume 90.7 fL (80.0-100.0); Nucleated RBC # (auto) 0.03 K/uL (0.00-0.12); Nucleated RBC % (auto) 0.6 %; Platelet Count 114 K/uL (130-400); RDW Coefficient of Variation 17.2 % (11.5-14.5); RDW Standard Deviation 54.9 fL (36.4-46.3); Red Blood Count 2.57 M/uL (4.20-5.40)
[2023-12-05 05:03] LABS: BUN Creatinine Ratio 22.7 (10-20); Calcium 8.1 mg/dl (8.6-10.3); Creatinine Clr Calc Pharmacy 50.7 ml/min; Est GFR (African American) 68.5 ml/min; Est GFR (Non-African American) 59.1 ml/min; Potassium 4.1 mmol/L (3.5-5.1)
[2023-12-05] MEDS: IRON SUCROSE 300 MG in SODIUM CHLORIDE 0.9% 250 ML IV ONE (10:09)
[2023-12-05 12:10] LABS: Hemoglobin 8.3 g/dl (12.0-16.0)
--- NOTE | 2023-12-05 17:13 | Hospitalist Progress Note ---
Date of Service December 05, 2023 Assessment & Plan (1) Hemorrhagic shock: Plan: 2nd to #2 resolved (2) Acute GI bleeding: Plan: upper GI bleed 2nd to gastric ulcer s/p 3 units in total of PRBCs since admission Coumadin reversed Serial H/H's remain acceptable with no evidence of recurrent bleeding stop PPI drip convert to protonix 40mg BID advance to full liquids if doing well overnight advance to regular diet tomorrow (3) Acute blood loss anemia: Plan: 2nd to #2 from a gastric ulcer s/p 3 units PRBCs since admission plan 3 doses of IV venofer 300mg, 2nd dose today H/H remain stable x 48 hours CBC am (4) Gastric ulcer: Plan: as seen on EGD by Dr Little visible vessel present this was the cause of her UGI bleeding unfortunately the ulcer was in a location making treatments (injection, clips, etc) difficult thus none pursued remains on PPI drip --> convert to protonix 40mg BID needs screening for H pylori appreciate GI assistance (5) Atrial fibrillation: Plan: Coumadin reversed with vitamin K Continue Dronedarone (6) Hypertension: Plan: will likely need to resume 1 or more of her BP meds did receive her lisinopril overnight due to high BPs (7) Thrombocytopenia: Plan: likely consumptive in the setting of acute upper GI bleeding daily CBC platelet level remains acceptable (8) Venous stasis ulcer: Plan: b/l shins wound care following for dressings this is a chronic issue - follows with [facility] in [place] she now has new lesions on her ankles wound care is changing the type of dressings today (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: Plan: coumadin use contributing to upper GI bleeding coumadin reversed (10) Gastritis: Plan: PPI as seen on EGD Plan cont PT, OT family updated at bedside home this weekend if she remains stable Admission and Anticipated Discharge Date Admission Date: December 01, 2023 Subjective tele overnight wnl pt's daughter/son at bedside during the visit pt feeling well no abd pain, nausea, emesis no stools since yesterday no coffee ground emesis tolerating full liquids without GI symptoms no dyspnea no NICHOLAS no dizziness Review of Systems Review of Systems: cv - no cp, no orthopnea psych - slept poorly last pm; was restless pulm - no cough or dyspnea GI - no abd pain Physical Exam Physical Exam: gen - NAD, sitting in chair comfortably skin - generalized pallor mouth - MMM neck - no JVD heart - irregular, s1 s2, no murmur lungs - CTA b/l abd - soft NT ND BS+ ext - dressings in place b/l legs; pulses 2+ b/l psych - a/o x 3 Results & Data Results & Data Vital Signs (Past 12 Hours) Vital Signs Temp Pulse Resp BP Pulse Ox O2 Del Method 12/05/23 17:12 36.7 C 60 18 136/84 95 Room Air 12/05/23 12:00 36.7 C 64 16 128/59 L 95 Room Air 12/05/23 08:00 36.7 C 95 H 16 132/77 95 Room Air Laboratory Results Laboratory Results 12/04/23 12/04/23 06:31 11:47 WBC 5.21 RBC 2.63 L Hgb 7.7 L 8.0 L Hct 23.7 L 25.2 L MCV 90.1 MCH 29.3 MCHC 32.5 RDW Std Deviation 56.2 H RDW Coeff of Caterina 17.4 H Plt Count 116 L MPV 10.0 Absolute Nucleated RBC Nucleated RBC % (auto) PT INR Sodium 139 Potassium 4.2 Chloride 111 H Carbon Dioxide 23 Anion Gap 5 BUN 31 H D Creatinine 0.85 Est Cr Clr Drug Dosing 52.4 Est GFR ( Amer) 71.4 Est GFR (Non-Af Amer) 61.6 BUN/Creatinine Ratio 36.5 H Glucose 101 H POC Glucose Calcium 8.2 L Crossmatch 12/04/23 12/04/23 12/05/23 12:12 18:22 04:19 WBC 5.40 RBC 2.57 L Hgb 7.9 L 7.5 L Hct 24.5 L 23.3 L MCV 90.7 MCH 29.2 MCHC 32.2 RDW Std Deviation 54.9 H RDW Coeff of Caterina 17.2 H Plt Count 114 L MPV 10.0 Absolute Nucleated RBC 0.03 Nucleated RBC % (auto) 0.6 PT 12.2 H INR 1.1 Sodium 139 Potassium 4.1 Chloride 110 H Carbon Dioxide 24 Anion Gap 5 BUN 20 Creatinine 0.88 Est Cr Clr Drug Dosing 50.7 Est GFR ( Amer) 68.5 Est GFR (Non-Af Amer) 59.1 BUN/Creatinine Ratio 22.7 H Glucose 103 H POC Glucose 116 H Calcium 8.1 L Crossmatch 12/05/23 11:53 WBC RBC Hgb 8.3 L Hct 26.0 L MCV MCH MCHC RDW Std Deviation RDW Coeff of Caterina Plt Count MPV Absolute Nucleated RBC Nucleated RBC % (auto) PT INR Sodium Potassium Chloride Carbon Dioxide Anion Gap BUN Creatinine Est Cr Clr Drug Dosing Est GFR ( Amer) Est GFR (Non-Af Amer) BUN/Creatinine Ratio Glucose POC Glucose Calcium Crossmatch PG Care Time/CCT Total # of Minutes Spent Total Time Spent with Patient: Total time spent is greater than 50% in coordination of care (as documented) at patient's floor/unit and/or counseling patient: Coding Level of Care Code 04254 SUB INP/OBS CARE 2MIN Diagnoses Hemorrhagic shock R57.8 Acute GI bleeding K92.2 Acute blood loss anemia D62 Gastric ulcer K25.9 Atrial fibrillation, unspecified type I48.91 Atrial fibrillation type: unspecified Essential hypertension I10 Hypertension type: essential hypertension Thrombocytopenia D69.6 Venous stasis ulcer I83.009; L97.909 Hemorrhagic disorder due to extrinsic circulating anticoagulants D68.32 Gastritis K29.70 (5) Atrial fibrillation Atrial fibrillation type: unspecified Qualified Code(s): I48.91 - Unspecified atrial fibrillation (6) Hypertension Hypertension type: essential hypertension Qualified Code(s): I10 - Essential (primary) hypertension
[2023-12-05] MEDS: MELATONIN 3 MG TAB PO SCH (21:58)
[2023-12-05] MEDS: PANTOprazole 40 MG in SYRINGE 0 ML IV SCH (21:58)
[2023-12-05] MEDS: ACETAMINOPHEN 500 MG TAB PO SCH (21:58)
[2023-12-06 08:04] LABS: Hematocrit (blood only) 23.8 % (37.0-47.0); Hemoglobin 7.7 g/dl (12.0-16.0); Mean Corpuscular Hemoglobin 29.7 pg (25.0-34.0); Mean Corpuscular Hgb Conc 32.4 g/dL (32.0-36.0); Mean Corpuscular Volume 91.9 fL (80.0-100.0); Mean Platelet Volume 10.4 fL (9.4-12.4); Nucleated RBC # (auto) 0.02 K/uL (0.00-0.12); Nucleated RBC % (auto) 0.5 %; Platelet Count 128 K/uL (130-400); RDW Coefficient of Variation 17.4 % (11.5-14.5); RDW Standard Deviation 55.2 fL (36.4-46.3); Red Blood Count 2.59 M/uL (4.20-5.40); White Blood Count 4.36 K/ul (4.8-10.8)
[2023-12-06 08:07] LABS: BUN Creatinine Ratio 19.3 (10-20); Calcium 8.3 mg/dl (8.6-10.3); Creatinine Clr Calc Pharmacy 50.7 ml/min; Est GFR (African American) 68.5 ml/min; Est GFR (Non-African American) 59.1 ml/min; Potassium 3.9 mmol/L (3.5-5.1)
[2023-12-06] MEDS: IRON SUCROSE 300 MG in SODIUM CHLORIDE 0.9% 250 ML IV ONE (09:27)
[2023-12-06] MEDS: lisinopril 10 MG TAB PO SCH (09:33)
[2023-12-06 14:55] LABS: Hematocrit (blood only) 27.6 % (37.0-47.0); Hemoglobin 8.5 g/dl (12.0-16.0)
--- NOTE | 2023-12-06 19:30 | Hospitalist Progress Note ---
Date of Service December 06, 2023 Assessment & Plan (1) Hemorrhagic shock: Plan: 2nd to #2 resolved (2) Acute GI bleeding: Plan: upper GI bleed 2nd to gastric ulcer s/p 3 units in total of PRBCs since admission Coumadin reversed Serial H/H's remain acceptable with no evidence of recurrent bleeding cont protonix 40mg BID advance to regular diet if doing well overnight can d/c home tomorrow will reach out to GI to see when coumadin can be resume - 1-2 weeks if H/H stable? (3) Acute blood loss anemia: Plan: 2nd to #2 from a gastric ulcer s/p 3 units PRBCs since admission plan 3 doses of IV venofer 300mg, 3rd dose today H/H remain stable x 72 hours CBC am (4) Gastric ulcer: Plan: as seen on EGD by Dr Little this was the cause of her UGI bleeding unfortunately the ulcer was in a location making treatments (injection, clips, etc) difficult thus none pursued cont protonix 40mg BID needs screening for H pylori - stool ag pending appreciate GI assistance (5) Atrial fibrillation: Plan: Coumadin reversed with vitamin K Continue Dronedarone Hold on resuming BB due to current BPs need to check with GI about when to resume coumadin - 1-2 weeks? other? 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: Plan: coumadin use contributing to upper GI bleeding coumadin reversed (10) Gastritis: Plan: PPI as seen on EGD Plan cont PT, OT family updated at bedside home tomorrow if H/H in am are stable ?small/tiny area of phlebitis left antecubital region -- elevation, warm pack Admission and Anticipated Discharge Date Admission Date: December 01, 2023 Subjective feeling very well only concern is mild left arm swelling but no pain had 1 stool today - dark in color, no maroon color or BRB tolerating regular diet w/o N/V/Abd pain no dizziness or lightheadedness feeling good on her feet daughter at bedside Review of Systems Review of Systems: cv - no cp pulm - no dyspnea Gi - no coffee ground emesis Physical Exam Physical Exam: gen - NAD, sitting in chair comfortably, looks well skin - generalized pallor mouth - MMM neck - no JVD heart - RRR, s1 s2, no murmur lungs - CTA b/l abd - soft NT ND BS+ ext - dressings in place b/l legs; pulses 2+ b/l psych - a/o x 3 left arm - ?small area of superficial phlebitis L antecubital region with gross swelling above the elbow and below the elbow; distal swelling in hand resolved Results & Data Results & Data Vital Signs (Past 12 Hours) Vital Signs Temp Pulse Pulse Resp BP Pulse Ox O2 Del Method 12/06/23 16:00 60 12/06/23 15:47 36.3 C L 60 16 130/69 97 Room Air 12/06/23 10:36 36.3 C L 61 18 126/73 97 Room Air 12/06/23 08:00 60 12/06/23 08:00 Room Air Laboratory Results Laboratory Results - last 24 hr 12/06/23 12/06/23 12/06/23 07:00 09:25 14:04 WBC 4.36 L RBC 2.59 L Hgb 7.7 L 8.5 L Hct 23.8 L 27.6 L MCV 91.9 MCH 29.7 MCHC 32.4 RDW Std Deviation 55.2 H RDW Coeff of Caterina 17.4 H Plt Count 128 L MPV 10.4 Absolute Nucleated RBC 0.02 Nucleated RBC % (auto) 0.5 Sodium 139 Potassium 3.9 Chloride 109 H Carbon Dioxide 26 Anion Gap 4 BUN 17 Creatinine 0.88 Est Cr Clr Drug Dosing 50.7 Est GFR ( Amer) 68.5 Est GFR (Non-Af Amer) 59.1 BUN/Creatinine Ratio 19.3 Glucose 89 Calcium 8.3 L Stool H. pylori Ag Pending PG Care Time/CCT Total # of Minutes Spent Total Time Spent with Patient: Total time spent is greater than 50% in coordination of care (as documented) at patient's floor/unit and/or counseling patient: Coding Level of Care Code 98041 SUB INP/OBS CARE 2/35MIN Diagnoses Hemorrhagic shock R57.8 Acute GI bleeding K92.2 Acute blood loss anemia D62 Gastric ulcer K25.9 Atrial fibrillation, unspecified type I48.91 Atrial fibrillation type: unspecified Essential hypertension I10 Hypertension type: essential hypertension Thrombocytopenia D69.6 Venous stasis ulcer I83.009; L97.909 Hemorrhagic disorder due to extrinsic circulating anticoagulants D68.32 Gastritis K29.70 (5) Atrial fibrillation Atrial fibrillation type: unspecified Qualified Code(s): I48.91 - Unspecified atrial fibrillation (6) Hypertension Hypertension type: essential hypertension Qualified Code(s): I10 - Essential (primary) hypertension
[2023-12-07 07:27] LABS: Hematocrit (blood only) 25.2 % (37.0-47.0); Hemoglobin 7.9 g/dl (12.0-16.0); Mean Corpuscular Hemoglobin 28.9 pg (25.0-34.0); Mean Corpuscular Hgb Conc 31.3 g/dL (32.0-36.0); Mean Corpuscular Volume 92.3 fL (80.0-100.0); Nucleated RBC # (auto) 0.05 K/uL (0.00-0.12); Nucleated RBC % (auto) 0.9 %; Platelet Count 144 K/uL (130-400); RDW Coefficient of Variation 17.8 % (11.5-14.5); RDW Standard Deviation 54.6 fL (36.4-46.3); Red Blood Count 2.73 M/uL (4.20-5.40); White Blood Count 5.34 K/ul (4.8-10.8)
--- NOTE | 2023-12-07 12:02 | Ultrasound Report ---
LEFT UPPER EXTREMITY VENOUS DOPPLER ULTRASOUND CLINICAL HISTORY: edema, phlebitis? DVT? COMPARISON STUDY: No previous studies for comparison. TECHNIQUE: Sonography of the venous system of the left upper extremity was performed. FINDINGS: Left internal jugular, subclavian, axillary, brachial, radial, ulnar, cephalic and basilic veins were patent. No venous thrombus was identified within the left upper extremity. Left wrist tulio a is present. IMPRESSION: No venous thrombus within the left upper extremity. ACT 112: Negative or not required by law. Electronically signed by: Coleman Gonzalez M.D. 12/07/2023 12:00 PM
--- NOTE | 2023-12-07 13:45 | Discharge Summary ---
Date of Service December 07, 2023 Admission HPI Per Admitting Provider Radha Floyd is a pleasant 88yo female with history of atrial fibrillation with pacer in place, anticoagulated on Coumadin (INR=2.4), HTN presenting with melena. Patient was in her usual state of health yesterday. This AM 12/01/23 she woke up with a tingling sensation in her legs. She then proceeded to have 4 loose, black bowel movements throughout the day. Her daughter reports that the BM was black and maroon in color and possibly with some clots in the bowl. Patient hypotensive on arrival with BP of 80/39. She was given NSS with improvement. She had several episodes of melena in the ER accompanied by drop in BP to the 70's, pallor, near syncope. ER Course: NSS x 2L Vitamin K 5mg IV Protonix 40mg IV PRBC x 1u Discharge Exam gen - NAD, sitting in chair comfortably, looks well skin - generalized pallor mouth - MMM neck - no JVD heart - RRR, s1 s2, no murmur lungs - CTA b/l abd - soft NT ND BS+ ext - dressings in place b/l legs; pulses 2+ b/l psych - a/o x 3 left arm - ?small area of superficial phlebitis L antecubital region with gross swelling above the elbow and below the elbow; distal swelling in hand resolved Discharge Data Allergies Allergy/AdvReac Type Severity Reaction Status Date / Time Sulfa (Sulfonamide Allergy Severe rash Verified 12/01/23 21:29 Antibiotics) latex Allergy Intermediate Rash Verified 12/01/23 21:29 Penicillins Allergy Intermediate Rash, Verified 12/01/23 21:29 heart palpitations cephalexin AdvReac Intermediate Diarrhea Verified 12/01/23 21:29 Consultations 12/01/23 21:16 ED Decision to Admit Stat 12/01/23 23:17 Consult Gastroenterology Routine 12/02/23 01:49 Consult Vp & General Counsel Routine Procedures Performed Operation Date: 12/02/23 17:00 Actual Procedures p Esophagogastroduodenoscopy - Megan Little Jr, MD Ordered Studies 12/01/23 19:41 CT abd pelvis IV con only Stat 12/07/23 10:59 US venous doppler UE LT Urgent Hospital Course (1) Hemorrhagic shock: 2nd to #2 resolved (2) Acute GI bleeding: upper GI bleed 2nd to gastric ulcer s/p 3 units in total of PRBCs since admission Coumadin reversed Serial H/H's remain acceptable with no evidence of recurrent bleeding cont protonix 40mg BID advance to regular diet if doing well overnight can d/c home tomorrow will reach out to GI to see when coumadin can be resume - 1-2 weeks if H/H stable? (3) Acute blood loss anemia: 2nd to #2 from a gastric ulcer s/p 3 units PRBCs since admission plan 3 doses of IV venofer 300mg, 3rd dose today H/H remain stable x 72 hours CBC am (4) Gastric ulcer: as seen on EGD by Dr Little this was the cause of her UGI bleeding unfortunately the ulcer was in a location making treatments (injection, clips, etc) difficult thus none pursued cont protonix 40mg BID needs screening for H pylori - stool ag pending appreciate GI assistance (5) Atrial fibrillation: Coumadin reversed with vitamin K Continue Dronedarone Hold on resuming BB due to current BPs need to check with GI about when to resume coumadin - 1-2 weeks? other? (6) Hypertension: resume lisinopril hold HCTZ & BB for now (7) Thrombocytopenia: likely consumptive in the setting of acute upper GI bleeding daily CBC platelet level remains acceptable (8) Venous stasis ulcer: b/l shins wound care following for dressings this is a chronic issue - follows with the [facility] in [place] she now has new lesions on her ankles wound care is changing the type of dressings today (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: coumadin use contributing to upper GI bleeding coumadin reversed (10) Gastritis: PPI as seen on EGD Plan cont PT, OT family updated at bedside home tomorrow if H/H in am are stable ?small/tiny area of phlebitis left antecubital region -- elevation, warm pack Home Health Attestation I certify that this patient is under my care and that I, or a physicians assistant dean of students working with me, had a face to-face encounter that meets the home health [id number] encounter requirements with this patient. The encounter with the patient was in whole, or in part, for the following medical condition, which is the primary reason for home health care (list medical condition): GIB I certify that, based on my findings, the following services are medically necessary home health services: My clinical findings support the need for the above services because: Home Safety Assessment Hydration / Nutrition Medication Compliance and Monitoring Effective of New Medications Skilled Nsg Assessment Surgical Incision / Wound Skilled Nsg Assess Pt Illness, Disease and Sx Monitoring Skilled Nsg to Assess, Perform and Teach Wound Care S/S to Report to Provider Teach on Disease Management and Interventions Vital Signs Further, I certify that my clinical findings support that this patient is homebound (i.e. absences from home require considerable and taxing effort and are for medical reasons or taoism services or infrequently or of short duration when for other reasons) because: Supportive Aid - Walker Certification for Home Health Services: Based on the above findings, I certify that this patient is confined to the home and needs intermittent correction care, physical therapy and/or speech therapy or continues to need occupational therapy. The patient is under my care, and I have initiated the establishment of the plan of care. This patient will be followed by a physician who will periodically review the plan of care. Discharge Plan Discharge Items Patient Disposition: Home - Home Health Services Reason For Visit: WEAKNESS/BLOODY STOOL Discharge Diagnosis: 1. gastric ulcer 2. gastritis 3. upper gastrointestinal bleeding due to #1 4. acute blood loss anemia due to #1/#3 -- 3 units of blood given, 3 iron infusions given 5. history of atrial fibrillation 6. high blood pressure 7. hemorrhagic shock (low blood pressure due to gastrointestinal bleeding) 8. ulcers of the legs 9. swelling of left arm - likely due to recent IV infiltration; no blood clot found Activity: As commented below Activity Comment: gradually increase activities over the next 1-2 weeks Driving/Machine Use: Would not drive until you see your family doctor later this week Non-emergency contact: Primary Care Provider and Optometry Doctor Call non-emergency contact if: you have any medication questions and your symptoms worsen Follow-up/Referrals: Kenisha Mccullough DO, FACEP [Physician] - 12/09/23 9:00 am Kelvin Vee DO [Primary Care Provider] - 12/12/23 4:00 pm ( or Friday of this week; you will need a repeat CBC (blood counts) at that time with LORNA Colon. ) Megan Little Jr, MD [Physician] - (2-3 weeks ) Diet: Heart Healthy Ambulatory Orders: Complete Blood Count no Diff (Timed) Timeframe: 20231211 Location: Determined by Patient Ordered By: Dandy Garcia Attending Provider Instructions: Mrs Floyd, Al were hospitalized due to upper gastrointestinal bleeding from a gastric ulcer. This was discovered on upper endoscopy (EGD) as performed by Dr Megan Little, [facility]. You also had mild gastritis (irritation of the stomach lining). Your blood pressure was low due to the bleeding and you needed ICU care for a short period of time. The blood pressure improved with blood transfusions. You received in total 3 units of blood. Three iron infusions were also given. Over the last 4 days your hemoglobin level has been about 8. There have not been any signs of recurrent bleeding in the days leading up to discharge. You are tolerating a diet without problem. Your ulcer was treated with an acid head baker called pantoprazole. You are being prescribed this medication for home use. In addition, the wound care team saw you in consult for your leg wounds. Home health will see you regularly to help with your wound care. You also have routine follow-up with the wound care clinic in [place]. Recommendations - 1. Take PANTOPRAZOLE 40mg twice daily, first dose TONIGHT 12/07/23. This is your acid head baker to heal the ulcer (and gastritis). 2. For about 1 week please follow a bland diet. Avoid spicy foods, fried foods, excessive amounts of caffeinated beverages, alcohol, etc. 3. AVOID ALL ANTI-INFLAMMATORY PILLS including but not limited to - * aspirin * motrin / ibuprofen * naprosyn / aleve * voltaren (diclofenac) topical gel 4. PLEASE HOLD YOUR COUMADIN for at least 1 week as directed by gastroenterology. Later this week have a CBC blood count. If your count is stable you will be allowed to resume your coumadin next weekend. 5. Blood pressure pills - * continue your lisinopril * CUT IN HALF your metoprolol succinate; take 25mg once daily only * STOP your hydrochlorothiazide 6. Swelling of left arm - your doppler ultrasound was normal; we did not see any deep or superficial blood clots. You can continue to elevate the left arm for the next few days as desired. You can also use warm packs on the front of the elbow area a few times a day for the next few days, as desired. 7. When you get home today you can take a dose of your furosemide water pill for swelling. 8. TYLENOL IS OK to take for aches & pains. Tylenol does NOT cause or contribute to gastrointestinal bleeding. 9. Have a repeat CBC blood count later this week, preferably on 12/11/23. I placed a lab order for you. Follow-up - see separate section Return to [facility] if - * you see recurrent dark/tarry/black stool in the future (of note -- you may see dark material for another 1-2 days - this is old blood. The stools will return to normal brown color very soon) * you see bright red blood in your stools * you feel faint, dizzy or lightheaded * you have abdominal pains * you have shortness of breath * any other concerns It was our pleasure to care for you! -Dr Meléndez Pending Studies at Discharge: Yes Studies:: H pylori stool test (bacterium that can cause stomach ulcers) Stand-Alone Forms: My [facility], Smoking Cessation Medications and DC Order Prescriptions: New pantoprazole [Protonix] 40 mg tablet,delayed release (DR/EC) 40 mg PO BID Qty: 60 5RF Continued dronedarone [Multaq] 400 mg tablet 400 mg PO BID multivitamin tablet 1 tab PO QAM nitroglycerin [Nitrostat] 0.4 mg tablet, sublingual 0.4 mg SL Q5M PRN (Reason: Chest Pain) (DME) [facility] See Rx Instructions .Route Qty: 1 0RF Rx Instructions: As directed furosemide 20 mg tablet 20 mg PO DAILY PRN (Reason: edema) Qty: 90 3RF lisinopril 10 mg tablet 10 mg PO QAM Qty: 90 1RF Rx Instructions: TAKE ONE TABLET BY MOUTH DAILY biotin 10 mg tablet 10 mg PO QAM acetaminophen [Tylenol Extra Strength] 500 mg Tablet 1,000 mg PO Q6H PRN (Reason: Pain) cholecalciferol (vitamin D3) [Vitamin D3] 125 mcg (5,000 unit) Tablet 125 mcg PO QAM Changed metoprolol succinate [Toprol XL] 50 mg tablet extended release 24 hr 25 mg PO QAM Qty: 1 0RF Held warfarin [Jantoven] 1 mg tablet See Rx Instructions .ROUTE .COMPLEX Hold Instructions: hold AT LEAST 1 week; Dr Vee can tell you when to resu me (likely to resume on 12/14/23) Rx Instructions: TAKES 1 MG MON, WED, & FRI EVENINGS, THEN 2 MG ON SUN, TU, THURS, & SAT. EVENINGS. Discontinued hydrochlorothiazide 12.5 mg tablet 12.5 mg PO QAM Qty: 90 3RF Rx Instructions: TAKE ONE TABLET BY MOUTH DAILY Vitron-C 65 mg iron- 125 mg tablet,delayed release (/EC) 1 tab PO QAM Discharge Orders: Discharge Order (Routine); Ordered 12/07/23 Ordered By: Dandy Tuttle/Other Patient Handouts: Understanding Gastritis, Understanding Gastric Ulcers Admission Data Admit Date/Time: 12/01/23 21:57 Attending Provider: Dandy Meléndez Admit Provider: Alicia Luu Primary Care Provider: Kelvin Vee Other Providers: Alicia Luu; Megan Little Jr; Marcos Valdez; [facility] F[facility] Other Interventions: Discharge Summary Assessment (RN) Last Done: 12/07/23 10:52 Coding Diagnoses Hemorrhagic shock R57.8 Acute GI bleeding K92.2 Acute blood loss anemia D62 Gastric ulcer K25.9 Atrial fibrillation, unspecified type I48.91 Atrial fibrillation type: unspecified Essential hypertension I10 Hypertension type: essential hypertension Thrombocytopenia D69.6 Venous stasis ulcer I83.009; L97.909 Hemorrhagic disorder due to extrinsic circulating anticoagulants D68.32 Gastritis K29.70
== END 2023-12-07 14:49 | disposition home health service (06) | DRG 377 ==
LOC: ED 17:59 → SUATTDRO 21:57 → EDINP 21:57 → 1E 23:17 → 2S 12-05 17:03
DX: T45.515A Adverse effect of anticoagulants, initial encounter; D68.32 Hemorrhagic disorder due to extrinsic circulating anticoagulants; R57.8 Other shock; E87.20 Acidosis, unspecified; Z88.1 Allergy status to other antibiotic agents; M79.89 Other specified soft tissue disorders; D62 Acute posthemorrhagic anemia; I87.2 Venous insufficiency (chronic) (peripheral); Z88.2 Allergy status to sulfonamides; Z91.040 Latex allergy status; Y84.8 Other medical procedures as the cause of abnormal reaction of the patient, or of later complication, without mention of misadventure at the time of the procedure; Y92.230 Patient room in hospital as the place of occurrence of the external cause; K25.4 Chronic or unspecified gastric ulcer with hemorrhage; I25.2 Old myocardial infarction; Y92.009 Unspecified place in unspecified non-institutional (private) residence as the place of occurrence of the external cause; Z95.0 Presence of cardiac pacemaker; Z88.0 Allergy status to penicillin; I48.20 Chronic atrial fibrillation, unspecified; I10 Essential (primary) hypertension

== ENCOUNTER 2024-12-06 10:40 | Inpatient (IN) ==
[~2024-12-06 10:40] MED LIST changes: -CALC12502 PO; -CHOL100027 PO; -CMD2 PO; -DRON400T PO; +ETOMIDATE 2 MG/ML 20 ML VIAL IV ONE; -HYDR12.55 PO; -LISI10TA PO; -METO50TA8 PO; -MULT-506 PO; -NITR0.4S UT; +ROCURONIUM BROMIDE 10 MG/ML 5 ML VIAL IV ONE; -WARF1TAB PO; +fentaNYL citrate PF 100 MCG/2 ML VIAL IV ONE
[2024-12-06] MEDS: SODIUM CHLORIDE 0.9% 1,000 ML IV SCH ×2 (10:50→20:13)
[2024-12-06] MEDS: NOREPINEPHRINE/D5W 4 MG/250 ML PLCT IV SCH (11:02)
--- NOTE | 2024-12-06 11:03 | Emergency Department Note ---
Impression & Plan Unresponsive, Generalized weakness, Hypotension, Respiratory failure, Kidney stone on right side ED Provider Note Provider: Eagle Luna MD CHIEF COMPLAINT: Weakness, respiratory arrest HISTORY OF PRESENT ILLNESS: Patient is a 89-year-old female history of CKD, gastric ulcers, and atrial fibrillation with pacemaker by report presenting here today via ambulance from home. Patient was at home with home health per EMS report and had called due to a week of some slowness and generalized weakness. And route of the ambulance the patient became unresponsive and went into respiratory arrest. EMS initiated bagging the patient the patient did resume breathing but was not following commands or truly waking up with an oral airway in place. Upon arrival patient with a moan but not following commands and eyes closed. Was hypotensive for EMS and received some push dose epinephrine prior to arrival. Patient I will provide significant history. PAST MEDICAL HISTORY: As noted above MEDICATIONS: Reviewed home medication list SOCIAL HISTORY: Lives at home with son, works at [employer] PHYSICAL EXAM: GENERAL: Unresponsive to painful or verbal stimuli some shallow breathing Head: normocephalic and atraumatic EYES: No injection, discharge or icterus. PERRL, EOMI. NECK: Trachea midline. Supple. ENT: Mucous membranes pink and moist. Loose upper dentures with a trace amount of blood on the tongue. LUNGS: Airway patent. No retractions. Breath sounds clear HEART: Regular rate and rhythm. No chest wall tenderness ABDOMEN: Soft and non-tender, without guarding or rebound. SKIN: Acyanotic, warm, dry, without rashes EXTREMITIES: Without swelling, tenderness or deformity NEUROLOGICAL: No response to painful stimuli. Slight cough. Some tongue movements but no opening the eyes to verbal or painful stimuli. EK bpm ventricular paced rhythm occasionally AV paced with some artifact. Intraventricular conduction delay consistent with pacing without clear acute ST segment elevation and a QTc of 558. CONTINUOUS CARDIAC MONITORING: was ordered and showed a heart rate of 40s to 80s bpm in sinus rhythm at a ventricular/atrially paced rhythm Patient's laboratory studies and imaging reviewed. Differential includes Infection, dehydration, metabolic abnormality, hypo/hyperglycemia, electrolyte disturbance, anemia, hypoxia, cardiac sources, gastrointestinal, sepsis, neurologic, as well as other pathologies. IMPRESSION/MEDICAL DECISION MAKING: Patient upon arrival is altered and not really responsive with some shallow breathing. Respiratory at bedside and breathing assisted. Given her critical status emergent RSI intubation performed without apparent complication. Just prior to this with some hypotension blood pressure in the 70s received some push dose epinephrine. There is a trace amount of blood in the oropharynx upon intubation but no large gush of blood. Morning care blood work without severe abnormalities other than potassium of 5.6. X-ray postintubation obtained appropriate ET tube placement. CT of the head, chest, abdomen pelvis obtained although there is no trauma history unclear what caused her generalized weakness and then respiratory arrest. Patient is given some fentanyl postintubation. Did have some high and low blood pressures and eventually stabilized on a Levophed drip. Given a one-time bolus of Protonix although no evidence of significant GI bleed at this time given the history and the trace blood in the oropharynx upon intubation and her use of Eliquis. Will cover empirically with cefepime. Propofol drip to be used for postintubation sedation once blood pressure stabilized. Daughter later arrives and was updated. Evidently has been slow and maybe with some slurred speech over the last day or so. Here blood work shows significant acidosis but oxygenating well. Given an amp of bicarb here. No significant leukocytosis or severe anemia noted. [id number] blood work with creatinine 1.[address] of the head, chest, abdomen pelvis per radiology reports without findings of intracranial bleed, pneumothorax with little bit of atelectasis finding not clearly pneumonia, and a CT showing some haziness at the root of the mesentery and peripancreatic fat questions pancreatitis as well as a displaced kidney stone into the right ureter with moderate right hydronephrosis. Urine culture from last week with mixed sara. Daughter reports patient has been having some right back type pain. Cool here and warming initiated. Capone placed and urine sample sent. Hospitalist and critical care team alerted to the patient and evaluated here. Urinalysis sent but do question if this distended kidney stone hydronephrosis could be at play for her today and causing possible sepsis. 2 and half liters of IV fluid ordered. Urinalysis with few white blood cells and bacteria from Capone placement. Procalcitonin not severely elevated. Did reach out discussed with urology patient's presentation and findings with a kidney stone. They evaluated here here in the emergency department plan for emergent stent in case the infected kidney stone is the primary etiology. Daughters are at bedside. DIAGNOSIS: Altered mental status, hypotension, right-sided kidney stone, respiratory failure DISPOSITION: Evaluated by the hospitalist for further care here. Critical Care I have personally spent 60 minutes of critical care time in the direct management of this patient. This includes bedside care, interpretation of diagnostic studies, and testing, discussion with consultants, patient, and family members, and other required patient management activities. These 60 minutes is in excess of all separately billable procedures. ED Intubation Indication respiratory failure, altered mental status. The patient was on 100% oxygen via NRB prior to the procedure. Suction, airway equipment, RSI drugs, respiratory equipment, and appropriate personnel were prepared prior to the initiation of the procedure. A time out was taken. Induction was performed with 20 mg of etomidate and milligrams rocuronium. After observing the clinical benefit of the medications, the airway was easily visualized utilizing a 3S glidescope. A 7.5 size ETT tube was placed atraumatically to 21 cm using standard technique. The cuff inflated without signs of malfunction. There were bilateral breath sounds, positive colormetric change, no gastric sounds, a good capnography waveform, and post procedure pulse oximetry was 90%. Post intubation sedation with initially some fentanyl and propofol drip. There were no complications. Past Med/Surg History Problem List Kidney stone on right side (Acute) Respiratory failure (Acute) Unresponsive (Acute) Encephalopathy acute Venous stasis dermatitis (Acute) PJ (acute kidney injury) (Acute) Cellulitis (Acute) 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 Venous ulcer of right leg (Acute) Venous ulcer of left leg Acute kidney injury CKD (chronic kidney disease) stage 4, GFR 15-29 ml/min Encounter for pre-operative examination Fatigue Left arm swelling Open wound of ankle (Acute) Gastritis Gastric ulcer Hemorrhagic disorder due to extrinsic circulating anticoagulants Thrombocytopenia Hemorrhagic shock Acute blood loss anemia Hypotension (Acute) Acute GI bleeding (Acute) Anemia (Acute) Generalized weakness (Acute) Traumatic open wound of great toe with delayed healing Traumatic open wound of right lower leg (Acute) Traumatic open wound of left lower leg (Acute) Mass of scalp Pressure ulcer of dorsum of left foot, stage 3 (Acute) Pressure ulcer of toe of right foot, stage 3 (Acute) Pressure ulcer of right foot, stage 2 Pressure ulcer of left foot, stage 2 Degenerative arthritis of knee, bilateral Chronic renal failure, stage 3a Pressure sore on buttocks Cellulitis of left leg (Acute) Vitamin D deficiency (Acute) Hypertension (Acute) Atrial fibrillation (Acute) Arthritis (Acute) Non-pressure chronic ulcer of calf, 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) Edema of left lower extremity (Chronic) Chronic venous insufficiency (Chronic) Cellulitis of right lower extremity (Acute) Pacemaker (Acute) Medical History History of blood transfusion 11/2023 Osteomyelitis of toe of right foot hx / sx intervention Gastric ulcer reason for upcoming procedure / follow up History of recent hospitalization 11/2023 kyrie garcia - stomach ulcer 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 dressing changes at wound clinic on Tuesdays and home nursing on Fridays History of basal cell carcinoma HTN (hypertension) Pacemaker placed 2006 - fabiola -- Fly6 -- last check 10/2022 - upcoming 01/16/24 History of myocardial infarction 1990s Slow to wake up after anesthesia denies trouble coming out of /pt reports "just no strong dosages, minimal always works" Osteoarthritis Osteopenia Multinodular goiter denies Hyperthyroidism hx Atrial fibrillation, chronic on warfarin. Follows with René Block PA-C. no hx cardioversion. Chronic venous insufficiency Surgical History History of endoscopy 11/2023 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 H/O excision of mass (01/29/23) Scalp Mass Excision(Right) - Red Farfan MD, FACS Status post ablation of incompetent vein using laser hx 2 ablations History of excision of lesion (01/23/11) Wide excision lesion left lower extremity with full thickness skin graft. Dr. Farfan S/P Mohs surgery for basal cell carcinoma History of tonsillectomy and adenoidectomy History of arthroscopy of knee History of cataract surgery Family History Mother Cardiac disorder Father Hypertension Denies family history of Ovarian cancer Prostate cancer Myocardial infarction Breast cancer Colorectal cancer Social History Smoking Status: Never smoker Tobacco Type: Cigarettes Second Hand Exposure: No; Do You Dip or Chew Tobacco: No; Hx Alcohol Use: No Hx Substance Use: No Preferred Language: Kazakh Communication Ability: Effective Visual Impairment: No Limitations Hearing Ability: Normal Display Fabricator Required: No Beliefs That Will Affect Care: None marital status: / Current Living Situation: Alone Current Living Situation Comment: live by myself but son has stayed with me since d/c from hospital 11/2023 current occupational status: employed current occupation: [employer] How many Children do You have: 3 Feels Safe at Home: Yes Childhood Exposure to Second-Hand Smoke: No Diet: regular Diet Comment: regular caffeine: No during the past year weight has: remained stable Dental Care, Regularly: Yes Physical Activity Frequency: Does not Exercise Seatbelt Use: always Sunscreen Use: Yes Assistive Devices: Cane, Denture - Upper, Walker and Other Allergies Allergies Allergy/AdvReac Type Severity Reaction Status Date / Time latex Allergy Unknown Rash Verified 11/30/24 08:54 Penicillins Allergy Unknown Rash, Verified 11/30/24 08:54 heart palpitations Sulfa (Sulfonamide Allergy Unknown rash Verified 11/30/24 08:54 Antibiotics) cephalexin AdvReac Unknown Diarrhea Verified 11/30/24 08:54 Home Meds Home Medications Medication Instructions Recorded Confirmed dronedarone 400 mg tablet (Multaq) 400 mg PO BID 06/19/18 12/06/24 multivitamin 1 tab PO QAM 06/19/18 12/06/24 nitroglycerin 0.4 mg sublingual 0.4 mg sublingual Q5M PRN Chest 06/19/18 12/06/24 tablet (Nitrostat) Pain biotin 10 mg tablet 10 mg PO QAM 04/05/19 12/06/24 acetaminophen 500 mg tablet 1,000 mg PO Q6H PRN Pain 08/31/22 12/06/24 (Tylenol Extra Strength) cholecalciferol (vitamin D3) 125 125 mcg PO QAM 08/31/22 12/06/24 mcg (5,000 unit) tablet (Vitamin D3) bromelains 500 mg tablet 500 mg PO DAILY 03/10/24 12/06/24 apixaban 2.5 mg tablet (Eliquis) 2.5 mg PO BID 06/01/24 12/06/24 gentamicin 0.1 % topical ointment 1 applic topical UD 12/06/24 12/06/24 hydrochlorothiazide 12.5 mg tablet 12.5 mg PO UD 12/06/24 12/06/24 metoprolol succinate 50 mg 50 mg PO QAM 12/06/24 12/06/24 tablet,extended release 24 hr (Toprol XL) Previous Rx's Medication Instructions Recorded Lift Chair #1 ea 09/27/22 lisinopril 5 mg tablet 5 mg PO DAILY #90 tabs 10/06/24 Results & Data (ED) Vital Signs Vital Signs - 24 hr 12/06/24 10:32 12/06/24 10:32 12/06/24 10:32 Temperature 32.3 C L Temperature Source Rectal Pulse Rate 75 Pulse Rate from SpO2 Sensor Pulse Rhythm Respiratory Rate 18 Respiratory Depth Normal Blood Pressure 121/79 Blood Pressure Mean 93 Pulse Oximetry 97 Oxygen Delivery Method Non-rebreather Mechanical Vent Sepsis New/Unexplained Change in Mental Status N/A Sepsis Action Taken by Nursing No Action Required End-Tidal CO2 12/06/24 10:45 12/06/24 10:54 12/06/24 10:54 Temperature Temperature Source Pulse Rate 60 80 Pulse Rate from SpO2 Sensor 81 Pulse Rhythm Regular Respiratory Rate 18 19 Respiratory Depth Blood Pressure 121/79 Blood Pressure Mean 101 Pulse Oximetry 93 Oxygen Delivery Method Mechanical Vent Sepsis New/Unexplained Change in Mental Status Sepsis Action Taken by Nursing End-Tidal CO2 12/06/24 10:54 12/06/24 10:55 12/06/24 10:56 Temperature Temperature Source Pulse Rate 79 Pulse Rate from SpO2 Sensor Pulse Rhythm Respiratory Rate Respiratory Depth Blood Pressure 218/107 H 181/86 H Blood Pressure Mean 155 90 Pulse Oximetry Oxygen Delivery Method Sepsis New/Unexplained Change in Mental Status Sepsis Action Taken by Nursing End-Tidal CO2 12/06/24 11:00 12/06/24 11:02 12/06/24 11:02 Temperature Temperature Source Pulse Rate 78 Pulse Rate from SpO2 Sensor 77 Pulse Rhythm Respiratory Rate 18 Respiratory Depth Blood Pressure 50/37 L 50/37 L Blood Pressure Mean 39 39 Pulse Oximetry 97 Oxygen Delivery Method Sepsis New/Unexplained Change in Mental Status Sepsis Action Taken by Nursing End-Tidal CO2 12/06/24 11:11 12/06/24 11:16 12/06/24 11:18 Temperature Temperature Source Pulse Rate Pulse Rate from SpO2 Sensor Pulse Rhythm Respiratory Rate Respiratory Depth Blood Pressure 143/84 H 131/79 129/77 Blood Pressure Mean 118 94 97 Pulse Oximetry Oxygen Delivery Method Sepsis New/Unexplained Change in Mental Status Sepsis Action Taken by Nursing End-Tidal CO2 12/06/24 11:18 12/06/24 11:20 12/06/24 11:20 Temperature Temperature Source Pulse Rate 60 Pulse Rate from SpO2 Sensor 60 Pulse Rhythm Respiratory Rate 18 Respiratory Depth Blood Pressure 108/71 108/71 Blood Pressure Mean 78 78 Pulse Oximetry 92 Oxygen Delivery Method Sepsis New/Unexplained Change in Mental Status Sepsis Action Taken by Nursing End-Tidal CO2 12/06/24 11:46 12/06/24 11:48 12/06/24 11:52 Temperature Temperature Source Pulse Rate Pulse Rate from SpO2 Sensor Pulse Rhythm Respiratory Rate Respiratory Depth Blood Pressure 113/70 104/65 117/66 Blood Pressure Mean 81 72 82 Pulse Oximetry Oxygen Delivery Method Sepsis New/Unexplained Change in Mental Status Sepsis Action Taken by Nursing End-Tidal CO2 12/06/24 12:00 12/06/24 12:01 12/06/24 12:04 Temperature 32.3 C L Temperature Source Rectal Pulse Rate Pulse Rate from SpO2 Sensor Pulse Rhythm Respiratory Rate Respiratory Depth Blood Pressure 185/95 H 187/95 H Blood Pressure Mean 124 136 Pulse Oximetry Oxygen Delivery Method Sepsis New/Unexplained Change in Mental Status Sepsis Action Taken by Nursing End-Tidal CO2 12/06/24 12:06 12/06/24 12:06 12/06/24 12:12 Temperature Temperature Source Pulse Rate 60 Pulse Rate from SpO2 Sensor 60 Pulse Rhythm Respiratory Rate 18 Respiratory Depth Blood Pressure 187/92 H 183/92 H Blood Pressure Mean 137 129 Pulse Oximetry 98 Oxygen Delivery Method Mechanical Vent Sepsis New/Unexplained Change in Mental Status Sepsis Action Taken by Nursing End-Tidal CO2 12/06/24 12:18 12/06/24 12:20 12/06/24 12:21 Temperature Temperature Source Pulse Rate 61 Pulse Rate from SpO2 Sensor 60 Pulse Rhythm Respiratory Rate 18 Respiratory Depth Blood Pressure 180/92 H 143/73 H Blood Pressure Mean 120 121 Pulse Oximetry 99 Oxygen Delivery Method Sepsis New/Unexplained Change in Mental Status Sepsis Action Taken by Nursing End-Tidal CO2 12/06/24 12:22 12/06/24 12:26 12/06/24 12:26 Temperature Temperature Source Pulse Rate Pulse Rate from SpO2 Sensor Pulse Rhythm Respiratory Rate Respiratory Depth Blood Pressure 121/70 163/84 H 163/84 H Blood Pressure Mean 81 113 113 Pulse Oximetry Oxygen Delivery Method Sepsis New/Unexplained Change in Mental Status Sepsis Action Taken by Nursing End-Tidal CO2 12/06/24 12:27 12/06/24 12:28 12/06/24 12:30 Temperature Temperature Source Pulse Rate 60 60 Pulse Rate from SpO2 Sensor 60 60 Pulse Rhythm Respiratory Rate 18 18 Respiratory Depth Blood Pressure 173/92 H Blood Pressure Mean 131 Pulse Oximetry 99 98 Oxygen Delivery Method Mechanical Vent Sepsis New/Unexplained Change in Mental Status Sepsis Action Taken by Nursing End-Tidal CO2 24 12/06/24 12:30 12/06/24 12:38 12/06/24 12:44 Temperature Temperature Source Pulse Rate Pulse Rate from SpO2 Sensor Pulse Rhythm Respiratory Rate Respiratory Depth Blood Pressure 174/90 H 177/91 H 165/86 H Blood Pressure Mean 119 131 122 Pulse Oximetry Oxygen Delivery Method Sepsis New/Unexplained Change in Mental Status Sepsis Action Taken by Nursing End-Tidal CO2 12/06/24 12:52 12/06/24 12:54 12/06/24 12:56 Temperature Temperature Source Pulse Rate Pulse Rate from SpO2 Sensor Pulse Rhythm Respiratory Rate Respiratory Depth Blood Pressure 127/71 126/79 120/72 Blood Pressure Mean 97 101 92 Pulse Oximetry Oxygen Delivery Method Sepsis New/Unexplained Change in Mental Status Sepsis Action Taken by Nursing End-Tidal CO2 12/06/24 12:57 12/06/24 13:02 12/06/24 13:02 Temperature Temperature Source Pulse Rate 60 Pulse Rate from SpO2 Sensor 60 Pulse Rhythm Respiratory Rate 18 Respiratory Depth Blood Pressure 128/73 128/73 Blood Pressure Mean 102 102 Pulse Oximetry 98 Oxygen Delivery Method Sepsis New/Unexplained Change in Mental Status Sepsis Action Taken by Nursing End-Tidal CO2 12/06/24 13:03 12/06/24 13:06 12/06/24 13:06 Temperature Temperature Source Pulse Rate 61 Pulse Rate from SpO2 Sensor 61 Pulse Rhythm Respiratory Rate 18 Respiratory Depth Blood Pressure 121/68 121/68 Blood Pressure Mean 97 97 Pulse Oximetry 97 Oxygen Delivery Method Sepsis New/Unexplained Change in Mental Status Sepsis Action Taken by Nursing End-Tidal CO2 12/06/24 13:06 12/06/24 13:08 12/06/24 13:09 Temperature Temperature Source Pulse Rate 60 60 Pulse Rate from SpO2 Sensor 60 59 L Pulse Rhythm Respiratory Rate 18 18 Respiratory Depth Blood Pressure 101/78 Blood Pressure Mean 86 Pulse Oximetry 96 98 Oxygen Delivery Method Sepsis New/Unexplained Change in Mental Status Sepsis Action Taken by Nursing End-Tidal CO2 23 24 12/06/24 13:10 12/06/24 13:10 12/06/24 13:12 Temperature Temperature Source Pulse Rate Pulse Rate from SpO2 Sensor Pulse Rhythm Respiratory Rate Respiratory Depth Blood Pressure 123/75 123/75 124/72 Blood Pressure Mean 81 81 80 Pulse Oximetry Oxygen Delivery Method Sepsis New/Unexplained Change in Mental Status Sepsis Action Taken by Nursing End-Tidal CO2 12/06/24 13:14 12/06/24 13:15 12/06/24 13:18 Temperature Temperature Source Pulse Rate 59 L 60 Pulse Rate from SpO2 Sensor 60 60 Pulse Rhythm Respiratory Rate 19 18 Respiratory Depth Blood Pressure 122/71 Blood Pressure Mean 88 Pulse Oximetry 97 98 Oxygen Delivery Method Sepsis New/Unexplained Change in Mental Status Sepsis Action Taken by Nursing End-Tidal CO2 24 24 12/06/24 13:18 12/06/24 13:20 12/06/24 13:20 Temperature Temperature Source Pulse Rate Pulse Rate from SpO2 Sensor Pulse Rhythm Respiratory Rate Respiratory Depth Blood Pressure 116/68 120/69 120/69 Blood Pressure Mean 83 85 85 Pulse Oximetry Oxygen Delivery Method Sepsis New/Unexplained Change in Mental Status Sepsis Action Taken by Nursing End-Tidal CO2 12/06/24 13:21 12/06/24 13:22 12/06/24 13:28 Temperature Temperature Source Pulse Rate 60 Pulse Rate from SpO2 Sensor 60 Pulse Rhythm Respiratory Rate 18 Respiratory Depth Blood Pressure 137/68 112/65 Blood Pressure Mean 82 79 Pulse Oximetry 98 Oxygen Delivery Method Sepsis New/Unexplained Change in Mental Status Sepsis Action Taken by Nursing End-Tidal CO2 24 12/06/24 13:28 12/06/24 13:30 12/06/24 13:30 Temperature Temperature Source Pulse Rate Pulse Rate from SpO2 Sensor Pulse Rhythm Respiratory Rate Respiratory Depth Blood Pressure 112/65 112/67 112/67 Blood Pressure Mean 79 79 79 Pulse Oximetry Oxygen Delivery Method Sepsis New/Unexplained Change in Mental Status Sepsis Action Taken by Nursing End-Tidal CO2 12/06/24 13:30 12/06/24 13:32 12/06/24 13:32 Temperature 32.7 C L 32.7 C L Temperature Source Rectal Pulse Rate 60 Pulse Rate from SpO2 Sensor 60 Pulse Rhythm Respiratory Rate 18 Respiratory Depth Blood Pressure 111/65 Blood Pressure Mean 81 Pulse Oximetry 97 Oxygen Delivery Method Sepsis New/Unexplained Change in Mental Status Sepsis Action Taken by Nursing End-Tidal CO2 24 Laboratory Data 12/06/24 10:49 12/06/24 12:17 Lab Results 12/06/24 12/06/24 12/06/24 Range/Units 10:49 10:52 11:14 WBC 6.56 (4.8-10.8) K/ul RBC 3.43 L (4.20-5.40) M/uL Hgb 10.2 L (12.0-16.0) g/dl POC Hgb 10.9 L 10.2 L (12.0-16.0) g/dl Hct 31.4 L (37.0-47.0) % POC Hct 32 L 30 L (37-47) % MCV 91.5 (80.0-100.0) fL MCH 29.7 (25.0-34.0) pg MCHC 32.5 (32.0-36.0) g/dL RDW Std Deviation 53.4 H (36.4-46.3) fL RDW Coeff of [place] 15.8 H (11.5-14.5) % Plt Count 46 L (130-400) K/uL MPV 13.8 H (9.4-12.4) fL Immature Gran % (Auto) 0.5 % Neut % (Auto) 67.4 % Lymph % (Auto) 16.8 % [place] % (Auto) 13.9 % Eos % (Auto) 1.2 % Baso % (Auto) 0.2 % Neut # (Auto) 4.43 (1.40-6.50) K/uL Lymph # (Auto) 1.10 L (1.20-3.40) K/uL [place] # (Auto) 0.91 H (0.11-0.59) K/uL Eos # (Auto) 0.08 (0.00-0.50) K/uL Baso # (Auto) 0.01 (0.00-0.20) K/uL Immature Gran # (Auto) 0.03 (0.01-0.20) K/uL PT Cancelled INR Cancelled APTT (21-31) Seconds PTT Ratio POC pH 7.23 L (7.35-7.45) POC pCO2 34 L (35-46) mmHg POC pO2 458 H (80-95) mmHg POC HCO3 15 L (19-24) rico/L POC Base Excess -13.0 L (-9-1.8) rico/L POC ABG O2 Sat 100.0 H (90-95) % POC Sodium 138 139 (135-144) mmol/L Sodium Cancelled POC Potassium 5.6 H 3.8 (3.3-5.0) mmol/L Potassium Cancelled POC Chloride 113 H (101-112) mmol/L Chloride Cancelled Carbon Dioxide Cancelled POC Total CO2 18 L 16 L (24-31) mmol/L Anion Gap Cancelled POC Anion Gap 13.0 L (16-25) mmol/L POC BUN 88 H (7-18) mg/dl BUN Cancelled Creatinine Cancelled POC Creatinine 1.9 H (0.6-1.3) mg/dl Est Cr Clr Drug Dosing Cancelled eGFR Cancelled BUN/Creatinine Ratio Cancelled Glucose Cancelled POC Glucose (other) 93 (70-99) mg/dl Lactate 1.7 (0.4-2.0) mmol/L Calcium Cancelled POC Ioniz Calcium [place] 1.17 (1.12-1.32) mmol/l Magnesium Cancelled Total Bilirubin Cancelled AST Cancelled ALT Cancelled Alkaline Phosphatase Cancelled Total Creatine Kinase Cancelled Troponin I High Sens Cancelled Total Protein Cancelled Albumin Cancelled Globulin Cancelled Albumin/Globulin Ratio Cancelled Procalcitonin Cancelled TSH Cancelled Urine Color Urine Appearance (Clear) Urine pH (4.5-7.5) Ur Specific [place] (1.000-1.030) Urine Protein (Negative) Urine Glucose (UA) (Negative) Urine Ketones (Negative) Urine Blood (Negative) Urine Nitrite (Negative) Urine Bilirubin (Negative) Urine Urobilinogen (Negative) Ur Leukocyte Esterase (Negative) Urine WBC (Auto) (0-5) /hpf Urine RBC (Auto) (0-2) /hpf U Hyaline Cast (Auto) (0-2) /lpf U Epithel Cells (Auto) (0-2) /hpf Urine Bacteria (Auto) (None Seen) Hyaline Casts (None Presnt) /lpf Urine Opiates Screen (Neg) Ur Methadone, Qual (Neg) Urine Fentanyl Screen (Neg) Urine Barbiturates (Neg) Ur Phencyclidine (PCP) (Neg) U Amphetamin/Meth Scrn (Neg) MDMA (Ecstasy) Screen (Neg) U Benzodiazepines Scrn (Neg) Ur Cocaine Metabolite (Neg) U Marijuana (THC) Screen (Neg) Adenovirus (PCR) (NotDetected) B. pertussis DNA (PCR) (NotDetected) B.parapertussis DNA PCR (NotDetected) C. pneumoniae DNA (PCR) (NotDetected) Coronavirus OC43 (PCR) (NotDetected) Coronavirus HKU1 (PCR) (NotDetected) Coronavirus 229E (PCR) (NotDetected) SARS-CoV-2 (PCR) (NotDetected) Coronavirus NL63 (PCR) (NotDetected) Human Metapneumovir PCR (NotDetected) Influenza Type A (PCR) (NotDetected) Influenza Type B (PCR) (NotDetected) M. pneumoniae (PCR) (NotDetected) Parainfluenza 1 (PCR) (NotDetected) Parainfluenza 2 (PCR) (NotDetected) Parainfluenza 3 (PCR) (NotDetected) Parainfluenza 4 (PCR) (NotDetected) RSV (PCR) (NotDetected) Entero/Rhino (PCR) (NotDetected) 12/06/24 12/06/24 12/06/24 Range/Units 11:49 11:59 12:01 WBC (4.8-10.8) K/ul RBC (4.20-5.40) M/uL Hgb (12.0-16.0) g/dl POC Hgb (12.0-16.0) g/dl Hct (37.0-47.0) % POC Hct (37-47) % MCV (80.0-100.0) fL MCH (25.0-34.0) pg MCHC (32.0-36.0) g/dL RDW Std Deviation (36.4-46.3) fL RDW Coeff of Caterina (11.5-14.5) % Plt Count (130-400) K/uL MPV (9.4-12.4) fL Immature Gran % (Auto) % Neut % (Auto) % Lymph % (Auto) % Franklin % (Auto) % Eos % (Auto) % Baso % (Auto) % Neut # (Auto) (1.40-6.50) K/uL Lymph # (Auto) (1.20-3.40) K/uL Franklin # (Auto) (0.11-0.59) K/uL Eos # (Auto) (0.00-0.50) K/uL Baso # (Auto) (0.00-0.20) K/uL Immature Gran # (Auto) (0.01-0.20) K/uL PT 12.1 H INR 1.1 APTT 37 H (21-31) Seconds PTT Ratio 1.4 POC pH (7.35-7.45) POC pCO2 (35-46) mmHg POC pO2 (80-95) mmHg POC HCO3 (19-24) rico/L POC Base Excess (-9-1.8) rico/L POC ABG O2 Sat (90-95) % POC Sodium (135-144) mmol/L Sodium POC Potassium (3.3-5.0) mmol/L Potassium POC Chloride (101-112) mmol/L Chloride Carbon Dioxide POC Total CO2 (24-31) mmol/L Anion Gap POC Anion Gap (16-25) mmol/L POC BUN (7-18) mg/dl BUN Creatinine POC Creatinine (0.6-1.3) mg/dl Est Cr Clr Drug Dosing eGFR BUN/Creatinine Ratio Glucose POC Glucose (other) (70-99) mg/dl Lactate (0.4-2.0) mmol/L Calcium POC Ioniz Calcium Mary Grace (1.12-1.32) mmol/l Magnesium Total Bilirubin AST ALT Alkaline Phosphatase Total Creatine Kinase Troponin I High Sens Total Protein Albumin Globulin Albumin/Globulin Ratio Procalcitonin 0.14 TSH Urine Color Yellow Urine Appearance Cloudy A (Clear) Urine pH 5.0 (4.5-7.5) Ur Specific [place] 1.017 (1.000-1.030) Urine Protein 2+ H (Negative) Urine Glucose (UA) Negative (Negative) Urine Ketones Negative (Negative) Urine Blood 1+ H (Negative) Urine Nitrite Negative (Negative) Urine Bilirubin Negative (Negative) Urine Urobilinogen Negative (Negative) Ur Leukocyte Esterase Trace H (Negative) Urine WBC (Auto) 6-10 H (0-5) /hpf Urine RBC (Auto) 3-5 H (0-2) /hpf U Hyaline Cast (Auto) >20 H (0-2) /lpf U Epithel Cells (Auto) 6-10 H (0-2) /hpf Urine Bacteria (Auto) 1+ H (None Seen) Hyaline Casts Present A (None Presnt) /lpf Urine Opiates Screen Pos H (Neg) Ur Methadone, Qual Neg (Neg) Urine Fentanyl Screen Pos H (Neg) Urine Barbiturates Neg (Neg) Ur Phencyclidine (PCP) Neg (Neg) U Amphetamin/Meth Scrn Neg (Neg) MDMA (Ecstasy) Screen Neg (Neg) U Benzodiazepines Scrn Neg (Neg) Ur Cocaine Metabolite Neg (Neg) U Marijuana (THC) Screen Neg (Neg) Adenovirus (PCR) Not Detected (NotDetected) B. pertussis DNA (PCR) Not Detected (NotDetected) B.parapertussis DNA PCR Not Detected (NotDetected) C. pneumoniae DNA (PCR) Not Detected (NotDetected) Coronavirus OC43 (PCR) Not Detected (NotDetected) Coronavirus HKU1 (PCR) Not Detected (NotDetected) Coronavirus 229E (PCR) Not Detected (NotDetected) SARS-CoV-2 (PCR) Not Detected (NotDetected) Coronavirus NL63 (PCR) Not Detected (NotDetected) Human Metapneumovir PCR Not Detected (NotDetected) Influenza Type A (PCR) Not Detected (NotDetected) Influenza Type B (PCR) Not Detected (NotDetected) M. pneumoniae (PCR) Not Detected (NotDetected) Parainfluenza 1 (PCR) Not Detected (NotDetected) Parainfluenza 2 (PCR) Not Detected (NotDetected) Parainfluenza 3 (PCR) Not Detected (NotDetected) Parainfluenza 4 (PCR) Not Detected (NotDetected) RSV (PCR) Not Detected (NotDetected) Entero/Rhino (PCR) Not Detected (NotDetected) 12/06/24 12/06/24 Range/Units 12:17 12:27 WBC (4.8-10.8) K/ul RBC (4.20-5.40) M/uL Hgb (12.0-16.0) g/dl POC Hgb (12.0-16.0) g/dl Hct (37.0-47.0) % POC Hct (37-47) % MCV (80.0-100.0) fL MCH (25.0-34.0) pg MCHC (32.0-36.0) g/dL RDW Std Deviation (36.4-46.3) fL RDW Coeff of Caterina (11.5-14.5) % Plt Count (130-400) K/uL MPV (9.4-12.4) fL Immature Gran % (Auto) % Neut % (Auto) % Lymph % (Auto) % Franklin % (Auto) % Eos % (Auto) % Baso % (Auto) % Neut # (Auto) (1.40-6.50) K/uL Lymph # (Auto) (1.20-3.40) K/uL [place] # (Auto) (0.11-0.59) K/uL Eos # (Auto) (0.00-0.50) K/uL Baso # (Auto) (0.00-0.20) K/uL Immature Gran # (Auto) (0.01-0.20) K/uL PT INR APTT (21-31) Seconds PTT Ratio POC pH (7.35-7.45) POC pCO2 (35-46) mmHg POC pO2 (80-95) mmHg POC HCO3 (19-24) rico/L POC Base Excess (-9-1.8) rico/L POC ABG O2 Sat (90-95) % POC Sodium (135-144) mmol/L Sodium 137 POC Potassium (3.3-5.0) mmol/L Potassium 4.1 POC Chloride (101-112) mmol/L Chloride 112 H Carbon Dioxide 18 L POC Total CO2 (24-31) mmol/L Anion Gap 7 POC Anion Gap (16-25) mmol/L POC BUN (7-18) mg/dl BUN 67 H Creatinine 1.60 H POC Creatinine (0.6-1.3) mg/dl Est Cr Clr Drug Dosing 25.8 eGFR 30.83 BUN/Creatinine Ratio 41.9 H Glucose 161 H POC Glucose (other) (70-99) mg/dl Lactate 1.2 (0.4-2.0) mmol/L Calcium 8.1 L POC Ioniz Calcium Mary Grace (1.12-1.32) mmol/l Magnesium 1.9 Total Bilirubin 0.7 AST 57 H ALT 49 Alkaline Phosphatase 119 H Total Creatine Kinase 66 Troponin I High Sens 8.4 Total Protein 5.7 L Albumin 3.0 L Globulin 2.7 Albumin/Globulin Ratio 1.1 Procalcitonin TSH 2.172 Urine Color Urine Appearance (Clear) Urine pH (4.5-7.5) Ur Specific [place] (1.000-1.030) Urine Protein (Negative) Urine Glucose (UA) (Negative) Urine Ketones (Negative) Urine Blood (Negative) Urine Nitrite (Negative) Urine Bilirubin (Negative) Urine Urobilinogen (Negative) Ur Leukocyte Esterase (Negative) Urine WBC (Auto) (0-5) /hpf Urine RBC (Auto) (0-2) /hpf U Hyaline Cast (Auto) (0-2) /lpf U Epithel Cells (Auto) (0-2) /hpf Urine Bacteria (Auto) (None Seen) Hyaline Casts (None Presnt) /lpf Urine Opiates Screen (Neg) Ur Methadone, Qual (Neg) Urine Fentanyl Screen (Neg) Urine Barbiturates (Neg) Ur Phencyclidine (PCP) (Neg) U Amphetamin/Meth Scrn (Neg) MDMA (Ecstasy) Screen (Neg) U Benzodiazepines Scrn (Neg) Ur Cocaine Metabolite (Neg) U Marijuana (THC) Screen (Neg) Adenovirus (PCR) (NotDetected) B. pertussis DNA (PCR) (NotDetected) B.parapertussis DNA PCR (NotDetected) C. pneumoniae DNA (PCR) (NotDetected) Coronavirus OC43 (PCR) (NotDetected) Coronavirus HKU1 (PCR) (NotDetected) Coronavirus 229E (PCR) (NotDetected) SARS-CoV-2 (PCR) (NotDetected) Coronavirus NL63 (PCR) (NotDetected) Human Metapneumovir PCR (NotDetected) Influenza Type A (PCR) (NotDetected) Influenza Type B (PCR) (NotDetected) M. pneumoniae (PCR) (NotDetected) Parainfluenza 1 (PCR) (NotDetected) Parainfluenza 2 (PCR) (NotDetected) Parainfluenza 3 (PCR) (NotDetected) Parainfluenza 4 (PCR) (NotDetected) RSV (PCR) (NotDetected) Entero/Rhino (PCR) (NotDetected) Administered Medications Propofol (Diprivan) 1,000 mg in 100 mls @ 9.492 mls/hr IV .[id number] SHAHEEN; Protocol Stop: 12/09/24 10:59 Last Titration: 12/06/24 13:35 Dose: 25 mcg/kg/min, 11.9 mls/hr Documented By: Titration: 12/06/24 13:17 Dose: 20 mcg/kg/min, 9.5 mls/hr Documented By: Admin: 12/06/24 12:08 Dose: 15 mcg/kg/min, 7.1 mls/hr Documented By: IGOR Co-signed By: MNE Norepinephrine Bitartrate (Levophed/D5w) 4 mg in 250 mls @ 17.798 mls/hr IV .[id number] SHAHEEN; Protocol Stop: 01/05/25 11:44 Last Titration: 12/06/24 12:44 Dose: 0.06 mcg/kg/min, 17.8 mls/hr Documented By: IGOR Co-signed By: MNE Titration: 12/06/24 11:23 Dose: 0.12 mcg/kg/min, 35.6 mls/hr Documented By: IGOR Co-signed By: MNE Admin: 12/06/24 11:02 Dose: 0.1 mcg/kg/min, 29.7 mls/hr Documented By: IGOR Co-signed By: MNE Sodium Chloride (Nss) 1,000 mls @ 999 mls/hr IV .Q1H1M SHAHEEN Stop: 12/06/24 14:00 Last Infusion: 12/06/24 12:10 Dose: Infused Documented By: Admin: 12/06/24 10:50 Dose: 999 mls/hr Documented By: IGOR Discontinued Medications Pantoprazole Sodium 80 mg/ (Dextrose) 120 mls @ 480 mls/hr IV ONE STA Stop: 12/06/24 11:10 Last Infusion: 12/06/24 12:00 Dose: Infused Documented By: Admin: 12/06/24 11:35 Dose: 480 mls/hr Documented By: IGOR Cefepime HCl (Maxipime 2000mg) 2,000 mg in 20 mls @ 5 mls/min IV NOW STA; Protocol Stop: 12/06/24 12:14 Last Admin: 12/06/24 12:51 Dose: 5 mls/min Documented By: IGOR Sodium Chloride (Nss) 500 mls @ 999 mls/hr IV .Q31M ONE Stop: 12/06/24 12:50 Last Infusion: 12/06/24 12:50 Dose: 0 mls/hr Documented By: Admin: 12/06/24 12:20 Dose: 999 mls/hr Documented By: IGOR Miscellaneous (Stat Iv Infusion Titration Per Protocol) 1 each N/A NOW STA Stop: 12/06/24 10:57 Last Admin: 12/06/24 12:11 Dose: Not Given Documented By: IGOR Norepinephrine Bitartrate (Norepinephrine/D5w 4 Mg/250 Ml) Confirm Administered Dose 4 mg IV .STK-MED ONE Stop: 12/06/24 10:52 Last Admin: 12/06/24 12:11 Dose: Not Given Documented By: IGOR Propofol (Propofol Iv Emulsion 10 Mg/Ml 100 Ml Vial) Confirm Administered Dose 1,000 mg IV .STK-MED ONE Stop: 12/06/24 10:59 Last Admin: 12/06/24 12:08 Dose: Not Given Documented By: IGOR Imaging Data Radiologist's Impression: Chest CT 12/06/24 10:54 CT OF THE CHEST WITHOUT IV CONTRAST CLINICAL HISTORY: Respiratory failure. COMPARISON STUDY: Chest radiograph December 01, 2023. Chest radiograph performed earlier today. TECHNIQUE: Axial images of the chest were obtained without IV contrast. Images were reviewed in the axial, sagittal, and coronal planes. IV contrast was not administered for this examination. Automated exposure control was utilized for the study. A dose lowering technique was utilized adhering to the principles of ALARA. FINDINGS: The endotracheal tube is well positioned, 2.3 cm above the rylie. A left subclavian pacer is in place. Multifocal venous gas is related to the IV. Moderate to marked cardiomegaly is noted. There is moderate coronary artery calcification. No pericardial effusion is present. A left lobe goiter measures 6.5 x 5.8 cm. This has mildly increased in size since CT of May 28, 2007. There is rightward displacement of trachea without compression. Lungs are suboptimally assessed due to respiratory motion. Lower lobe linear densities and groundglass opacities favor atelectasis. There are are mild secretions within the airways. There is no consolidation to suggest pneumonia. Mild interlobular septal thickening is present. There is no pneumothorax or pleural effusion. Extensive anterior osteophytosis of the thoracic spine is incidentally noted. A right lower cervical nodule is partially imaged on this exam. This measures at least 1.9 cm. This favors an enlarged lymph node. Abdomen and pelvis CT will be reported separately. Tip of nasogastric tube is within the body of the stomach. IMPRESSION: 1. Well-positioned endotracheal and nasogastric tubes. 2. Cardiomegaly. Mild interstitial thickening. This favors mild pulmonary edema. 3. Lower lung densities and groundglass opacities which favor atelectasis. No definite consolidation to suggest pneumonia. Mild secretions within the airways. 4. 1.9 cm right lower neck nodule, partially imaged on this exam. This favors an enlarged lymph node. Outpatient CT of the neck with contrast is recommended. 5. Left lobe thyroid goiter. ACT 112: Negative or not required by law. Electronically signed by: Coleman Gonzalez M.D. 12/06/2024 11:56 AM Chest X-Ray 12/06/24 10:54 XR chest 1V portable CLINICAL HISTORY: weakness postintubation COMPARISON STUDY: 08/31/2022 FINDINGS: Single view chest demonstrates an endotracheal tube tip 2.5 cm above the rylie. Bibasilar reticular densities are once again noted to most likely representing a component of fibrosis. An early superimposed left basilar infiltrate cannot be excluded. Dual-lead pacemaker electrode leads are in place. The nasogastric tube tip identified consistent with a mid gastric tip placement. IMPRESSION: Endotracheal tube tip 2.5 cm above the rylie. ACT 112: Negative or not required by law. Electronically signed by: Jana Schumacher M.D. 12/06/2024 11:[address] 12/06/24 10:54 CT OF THE HEAD WITHOUT CONTRAST CLINICAL HISTORY: Altered mental status. COMPARISON STUDY: MRI of the brain April 30, 2007. Head CT September 08, 2019. TECHNIQUE: Helical axial images of the head were obtained without IV contrast. Automated exposure control was utilized for the study. A dose lowering technique was utilized adhering to the principles of ALARA. FINDINGS: No acute intracranial hemorrhage, midline shift or mass effect is present. The ventricular system is stable. The basal cisterns are patent. No extra-axial collections are present. There are no findings to suggest acute dural sinus thrombosis or acute territorial infarct. No significant calvarial abnormalities are present. Visualized portions of the sinuses and mastoid air cells are clear. Secretions within the nasopharynx are related to intubation. Multifocal venous gas is incidentally noted. This is related to IV placement. IMPRESSION: No acute intracranial findings. ACT 112: Negative or not required by law. Electronically signed by: Coleman Gonzalez M.D. 12/06/2024 11:45 AM Abdomen/Pelvis CT 12/06/24 10:[address] WITHOUT CONTRAST CT DOSE: 2663.67 mGy.cm HISTORY: eweak, resp failure, hx gibleed TECHNIQUE: Multiaxial CT images of the abdomen and pelvis were performed without contrast. Sagittal and coronal reconstructions were done. A dose lowering technique was utilized adhering to the principles of ALARA. COMPARISON STUDY: 12/01/2023 FINDINGS: Since the prior examination, the heart size is increased. Bibasilar linear opacities have developed in the dependent portions of both lower lobes. Mild generalized haziness in the subcutaneous fat has developed as well as haziness at the root of the mesentery and in the peripancreatic fat. There is no ascites. Since the prior study, the right renal calculi have moved into the proximal right ureter causing moderate right pyelocaliectasis. The liver and spleen demonstrate no focal lesions. No adrenal gland abnormality identified. There is no aortic aneurysm or periaortic adenopathy. There is no bowel obstruction or free air. There is no evidence of colitis or diverticulitis. Numerous colonic diverticuli are once again noted. In the pelvis, there is a small fat-containing umbilical hernia. The uterus is midline. Is a Capone catheter in a collapsed bladder. Sigmoid diverticula are noted. There is no fluid or blood in the cul-de-sac. IMPRESSION: Right renal stones that were previously in the renal pelvis have moved into the proximal right ureter and are associated with moderate proximal right hydronephrosis. Mild haziness in the subcutaneous fat and root of the mesentery in conjunction with mild cardiomegaly raise the possibility of CHF versus fluid overload. Haziness in the peripancreatic fat. Cannot exclude acute pancreatitis. Bibasilar airspace opacities most likely dependent discoid atelectasis. Pulmonary edema or developing infiltrate cannot be excluded. No intra-abdominal hemorrhage identified. ACT 112: Negative or not required by law. The above report was generated using voice recognition software. It may contain grammatical, syntax or spelling errors. Electronically signed by: Jana Schumacher M.D. 12/06/2024 12:10 PM Discharge Plan Visit Data Chief Complaint: Respiratory Arrest ED Provider: [facility] Discharge Problem: Unresponsive, Generalized weakness, Hypotension, Respiratory failure, Kidney stone on right side Patient Disposition: Being Evaluated by Hospitalist Forms Stand Alone Forms: My [facility] Prescriptions Prescriptions: No Action dronedarone [Multaq] 400 mg tablet 400 mg PO BID multivitamin tablet 1 tab PO QAM Rx Instructions: otc unable to verify nitroglycerin [Nitrostat] 0.4 mg tablet, sublingual 0.4 mg SL Q5M PRN (Reason: Chest Pain) Patient Comments: never had to use Rx Instructions: not on file with pharmacy. Eliquis 2.5 mg tablet 2.5 mg PO BID (DME) Lift Chair Misc See Rx Instructions .Route Qty: 1 0RF Rx Instructions: As directed biotin 10 mg tablet 10 mg PO QAM Rx Instructions: otc unable to verify bromelains 500 mg tablet 500 mg PO DAILY Rx Instructions: otc unable to verify administer after a meal lisinopril 5 mg tablet 5 mg PO DAILY Qty: 90 3RF acetaminophen [Tylenol Extra Strength] 500 mg Tablet 1,000 mg PO Q6H PRN (Reason: Pain) Rx Instructions: otc unable to verify cholecalciferol (vitamin D3) [Vitamin D3] 125 mcg (5,000 unit) Tablet 125 mcg PO QAM Rx Instructions: otc unable to verify metoprolol succinate [Toprol XL] 50 mg tablet extended release 24 hr 50 mg PO QAM Rx Instructions: 50 mg po qam per pharmacy gentamicin 0.1 % ointment 1 applic topical UD Rx Instructions: filled in back in oct 20 applic topically as directed -with dressing changes hydrochlorothiazide 12.5 mg tablet 12.5 mg PO UD Rx Instructions: Friday Referrals Referrals: Kelvin Vee DO [Primary Care Provider] - Discharge Problem: Hypotension Qualifiers: Hypotension type: unspecified hypotension type Qualified Code(s): I95.9 - Hypotension, unspecified Respiratory failure Qualifiers: Chronicity: acute Respiratory failure complication: unspecified whether with hypoxia or hypercapnia Qualified Code(s): J96.00 - Acute respiratory failure, unspecified whether with hypoxia or hypercapnia
[2024-12-06 11:05] LABS: iSTAT Creatinine 1.9 mg/dl (0.6-1.3); iSTAT Hemoglobin 10.9 g/dl (12.0-16.0); iSTAT Ionized Calcium 1.17 mmol/l (1.12-1.32); iSTAT Potassium 5.6 mmol/L (3.3-5.0)
[2024-12-06 11:15] LABS: Basophils # (auto) 0.01 K/uL (0.00-0.20); Basophils % (auto) 0.2 %; Eosinophils # (auto) 0.08 K/uL (0.00-0.50); Eosinophils % (auto) 1.2 %; Hematocrit (blood only) 31.4 % (37.0-47.0); Hemoglobin 10.2 g/dl (12.0-16.0); Immature Granulocytes # (auto) 0.03 K/uL (0.01-0.20); Immature Granulocytes % (auto) 0.5 %; Lymphocytes % (auto) 16.8 %; Mean Corpuscular Hemoglobin 29.7 pg (25.0-34.0); Mean Corpuscular Hgb Conc 32.5 g/dL (32.0-36.0); Mean Corpuscular Volume 91.5 fL (80.0-100.0); Mean Platelet Volume 13.8 fL (9.4-12.4); Monocytes # (auto) 0.91 K/uL (0.11-0.59); Monocytes % (auto) 13.9 %; Neutrophils # (auto) 4.43 K/uL (1.40-6.50); Neutrophils % (auto) 67.4 %; Platelet Count 46 K/uL (130-400); RDW Coefficient of Variation 15.8 % (11.5-14.5); RDW Standard Deviation 53.4 fL (36.4-46.3); Red Blood Count 3.43 M/uL (4.20-5.40); White Blood Count 6.56 K/ul (4.8-10.8)
--- NOTE | 2024-12-06 11:24 | XRay Report ---
XR chest 1V portable CLINICAL HISTORY: weakness postintubation COMPARISON STUDY: 08/31/2022 FINDINGS: Single view chest demonstrates an endotracheal tube tip 2.5 cm above the rylie. Bibasilar reticular densities are once again noted to most likely representing a component of fibrosis. An dat y superimposed left basilar infiltrate cannot be excluded. Dual-lead pacemaker electrode leads are in place. The nasogastric tube tip identified consistent with a mid gastric tip placement. IMPRESSION: Endotracheal tube tip 2.5 cm above the rylie. ACT 112: Negative or not required by law. Electronically signed by: Jana Schumacher M.D. 12/06/2024 11:22 AM
[2024-12-06 11:28] LABS: iSTAT Arterial Blood Gas HCO3 15 meg/L (19-24); iSTAT Arterial Blood Gas pCO2 34 mmHg (35-46); iSTAT Arterial Blood Gas pH 7.23 (7.35-7.45); iSTAT Arterial Blood Gas pO2 458 mmHg (80-95); iSTAT Carbon Dioxide 16 mmol/L (24-31); iSTAT Hematocrit 30 % (37-47); iSTAT Hemoglobin 10.2 g/dl (12.0-16.0); iSTAT Potassium 3.8 mmol/L (3.3-5.0); iSTAT Sodium 139 mmol/L (135-144)
[2024-12-06] MEDS: PANTOprazole 80 MG in DEXTROSE 5% 100 ML IV STA (11:35)
[2024-12-06] MEDS ORDERED: STAT IV Infusion **Titration per Protocol STA (11:41)
--- NOTE | 2024-12-06 11:48 | CT Scan Report ---
CT OF THE HEAD WITHOUT CONTRAST CLINICAL HISTORY: Altered mental status. COMPARISON STUDY: MRI of the brain April 30, 2007. Head CT September 08, 2019. TECHNIQUE: Helical axial images of the head were obtained without IV contrast. Automated exposure con trol was utilized for the study. A dose lowering technique was utilized adhering to the principles o f ALARA. FINDINGS: No acute intracranial hemorrhage, midline shift or mass effect is present. The ventricular system is stable. The basal cisterns are patent. No extra-axial collections are present. There are no findings to suggest acute dural sinus thrombosis or acute territorial infarct. No significant calvar ial abnormalities are present. Visualized portions of the sinuses and mastoid air cells are clear. Se cretions within the nasopharynx are related to intubation. Multifocal venous gas is incidentally note d. This is related to IV placement. IMPRESSION: No acute intracranial findings. ACT 112: Negative or not required by law. Electronically signed by: Coleman Gonzalez M.D. 12/06/2024 11:45 AM
--- NOTE | 2024-12-06 11:57 | CT Scan Report ---
CT OF THE CHEST WITHOUT IV CONTRAST CLINICAL HISTORY: Respiratory failure. COMPARISON STUDY: Chest radiograph December 01, 2023. Chest radiograph performed earlier today. TECHNIQUE: Axial images of the chest were obtained without IV contrast. Images were reviewed in the axial, sagittal, and coronal planes. IV contrast was not administered for this examination. Automat ed exposure control was utilized for the study. A dose lowering technique was utilized adhering to t he principles of ALARA. FINDINGS: The endotracheal tube is well positioned, 2.3 cm above the rylie. A left subclavian pacer is in place. Multifocal venous gas is related to the IV. Moderate to marked cardiomegaly is noted. T here is moderate coronary artery calcification. No pericardial effusion is present. A left lobe goite r measures 6.5 x 5.8 cm. This has mildly increased in size since CT of May 28, 2007. There is right corona displacement of trachea without compression. Lungs are suboptimally assessed due to respiratory motion. Lower lobe linear densities and groundglass opacities favor atelectasis. There are are mild s ecretions within the airways. There is no consolidation to suggest pneumonia. Mild interlobular septa l thickening is present. There is no pneumothorax or pleural effusion. Extensive anterior osteophytos is of the thoracic spine is incidentally noted. A right lower cervical nodule is partially imaged on this exam. This measures at least 1.9 cm. This favors an enlarged lymph node. Abdomen and pelvis CT w ill be reported separately. Tip of nasogastric tube is within the body of the stomach. IMPRESSION: 1. Well-positioned endotracheal and nasogastric tubes. 2. Cardiomegaly. Mild interstitial thickening. This favors mild pulmonary edema. 3. Lower lung densities and groundglass opacities which favor atelectasis. No definite consolidation to suggest pneumonia. Mild secretions within the airways. 4. 1.9 cm right lower neck nodule, partially imaged on this exam. This favors an enlarged lymph node. Outpatient CT of the neck with contrast is recommended. 5. Left lobe thyroid goiter. ACT 112: Negative or not required by law. Electronically signed by: Coleman Gonzalez M.D. 12/06/2024 11:56 AM
--- NOTE | 2024-12-06 12:06 | Critical Care Consultation ---
Date of Consultation December 06, 2024 Assessment & Plan (1) PJ (acute kidney injury): Reason Critically Ill: 81-year-old female with acute encephalopathy and respiratory insufficiency requiring evaluation. PLAN: Neuro: Acute encephalopathy: Suspect metabolic Resp: Respiratory insufficiency: Hypercapnic respiratory failure -Mechanical ventilation CV: Atrial fibrillation Pacemaker dependence Fluids/Renal: Acute kidney. 7 chronic kidney disease stage III Right-sided hydronephrosis with ID: Sepsis: Cannot exclude right-sided pyelonephritis -Urology placed ureteral stent GI/Nutrition: N.p.o. Heme: anemia: At baseline Long-term systemic anticoagulation secondary to atrial fibrillation DVT prophylaxis: SCD Endocrine: ICU hyperglycemia protocol Vascular access: Peripheral IV Code Status: DO NOT RESUSCITATE in event of cardiac arrest -Discussed extensively with patient's family, she has made multiple mentions of she is not afraid of as the Lord has a pillow prepared for her in [facility]. Family also reports that she had previously filled out a DO NOT RESUSCITATE order. At this point patient would not want to undergo procedures or treatments which would prohibit her from returning to living semiindependently (she lives with a developmentally delayed son who she provides significant care for) Disposition: ICU (2) Stage 3b chronic kidney disease: (3) CKD (chronic kidney disease) stage 4, GFR 15-29 ml/min: (4) Atrial fibrillation: (5) Encephalopathy acute: Supervising Physician Co-Signing Physician Notes I have personally spent 70 minutes of critical care time in the direct management of this patient. This is a life/limb threatening event. This includes time spent evaluating patient, direct bedside care, chart review, placing orders, interpretation of diagnostic studies, discussion with consultants, patient, and/or family members regarding treatment decisions, as well as other required patient management activities. This time is exclusive of all separately billable procedures, and teaching time and separate from and in addition to any other critical care service time. History of Present Illness Reason for Consultation: Respiratory arrest Requesting Physician: Dr. Pa History of Present Illness Patient is 89-year-old female who was recently in the emergency department on November 26 for bilateral lower extremity drainage, she was diagnosed with cellulitis and started on Levaquin. Reviewed notes. Demonstrated creatinine 1.61 BUN 76 reported near her baseline.She subsequently returned to the ED on after having obtained outpatient lab work which demonstrated worsening renal function and elevated potassium. During her evaluation the during contact with nephrology felt she was a candidate for outpatient therapy. She underwent imaging of a renal ultrasound. I am going [place] time of today [place] patient will sign increasingly slowly experiencing to her regarding her wrist, she resides so I am home with home health. Occasionally. She endorses her evaluation of her Panel was negative brought to the emergency department by EMS. Per EMS patient was initially responsive and then became apneic and hypotensive. She received push dose of vasoactive medications and was intubated in the emergency department. Allergies Allergy/AdvReac Type Severity Reaction Status Date / Time latex Allergy Unknown Rash Verified 11/30/24 08:54 Penicillins Allergy Unknown Rash, Verified 11/30/24 08:54 heart palpitations Sulfa (Sulfonamide Allergy Unknown rash Verified 11/30/24 08:54 Antibiotics) cephalexin AdvReac Unknown Diarrhea Verified 11/30/24 08:54 Home Medications Medication Instructions Recorded Confirmed Type dronedarone 400 mg tablet (Multaq) 400 mg PO BID 06/19/18 12/06/24 History multivitamin 1 tab PO QAM 06/19/18 12/06/24 History nitroglycerin 0.4 mg sublingual 0.4 mg sublingual Q5M PRN Chest 06/19/18 12/06/24 History tablet (Nitrostat) Pain biotin 10 mg tablet 10 mg PO QAM 04/05/19 12/06/24 History acetaminophen 500 mg tablet 1,000 mg PO Q6H PRN Pain 08/31/22 12/06/24 History (Tylenol Extra Strength) cholecalciferol (vitamin D3) 125 125 mcg PO QAM 08/31/22 12/06/24 History mcg (5,000 unit) tablet (Vitamin D3) Lift Chair #1 ea 09/27/22 11/23/24 Rx bromelains 500 mg tablet 500 mg PO DAILY 03/10/24 12/06/24 History apixaban 2.5 mg tablet (Eliquis) 2.5 mg PO BID 06/01/24 12/06/24 History lisinopril 5 mg tablet 5 mg PO DAILY #90 tabs 10/06/24 12/06/24 Rx gentamicin 0.1 % topical ointment 1 applic topical UD 12/06/24 12/06/24 History hydrochlorothiazide 12.5 mg tablet 12.5 mg PO UD 12/06/24 12/06/24 History metoprolol succinate 50 mg 50 mg PO QAM 12/06/24 12/06/24 History tablet,extended release 24 hr (Toprol XL) Patient History Medical History History of blood transfusion 11/2023 Osteomyelitis of toe of right foot hx / sx intervention Gastric ulcer reason for upcoming procedure / follow up History of recent hospitalization 11/2023 kyrie garcia - stomach ulcer 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 dressing changes at wound clinich on Tuesdays and home nursing on Fridays History of basal cell carcinoma HTN (hypertension) Pacemaker placed 2006 - shauna -- [employer] -- last check 10/2022 - upcoming 01/16/24 History of myocardial infarction 1990s Slow to wake up after anesthesia denies trouble coming out of /pt reports "just no strong dosages, minimal always works" Osteoarthritis Osteopenia Multinodular goiter denies Hyperthyroidism hx Atrial fibrillation, chronic on warfarin. Follows with René Block PA-C. no hx cardioversion. Chronic venous insufficiency Surgical History History of endoscopy 11/2023 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 H/O excision of mass (01/29/23) Scalp Mass Excision(Right) - Red Farfan MD, FACS Status post ablation of incompetent vein using laser hx 2 ablations History of excision of lesion (01/23/11) Wide excision lesion left lower extremity with full thickness skin graft. Dr. Farfan S/P Mohs surgery for basal cell carcinoma History of tonsillectomy and adenoidectomy History of arthroscopy of knee History of cataract surgery Family History Mother Cardiac disorder Father Hypertension Denies family history of Ovarian cancer Prostate cancer Myocardial infarction Breast cancer Colorectal cancer Social History (Reviewed 12/06/24 @ 13:20 by ZULEYKA Lawler Smoking Status: Never smoker Tobacco Type: Cigarettes Second Hand Exposure: No; Do You Dip or Chew Tobacco: No; Hx Alcohol Use: No Hx Substance Use: No Preferred Language: Bel[place]an Communication Ability: Effective Visual Impairment: No Limitations Hearing Ability: Normal Electroplater Automatic Required: No Beliefs That Will Affect Care: None marital status: / Current Living Situation: Alone Current Living Situation Comment: live by myself but son has stayed with me since d/c from hospital 11/2023 current occupational status: employed current occupation: [employer] STAFF How many Children do You have: 3 Feels Safe at Home: Yes Childhood Exposure to Second-Hand Smoke: No Diet: regular Diet Comment: regular caffeine: No during the past year weight has: remained stable Dental Care, Regularly: Yes Physical Activity Frequency: Does not Exercise Seatbelt Use: always Sunscreen Use: Yes Assistive Devices: Cane, Denture - Upper, Walker and Other Physical Exam Physical Exam: General: Glascow Coma Scale: Eyes: 1, Verbal 1t, Motor 1, Total 3T. nontoxic. Skin: Cool, dry, Head: Atraumatic Ears, nose, mouth and throat: airway patent Cardiovascular: decreased capillary refill Respiratory: ventilator settings review Gastrointestinal: Non distended Musculoskeletal: No deformity Results & Data Results & Data Vital Signs (Past 12 Hours) Vital Signs Temp Pulse Resp BP Pulse Ox O2 Del Method 12/06/24 10:55 79 12/06/24 10:32 32.3 C L 12/06/24 10:32 75 18 121/79 97 Non-rebreather Critical Care Results & Data Vital Signs (Past 12 Hours) Vital Signs Temp Pulse Resp BP Pulse Ox O2 Del Method 12/06/24 12:01 32.3 C L 12/06/24 10:55 79 12/06/24 10:32 32.3 C L 12/06/24 10:32 75 18 121/79 97 Non-rebreather Lab & Micro Results (Past 24 Hours) RBC 3.43 M/uL (4.20-5.40) L 12/06/24 WBC 6.56 K/ul (4.8-10.8) 12/06/24 Hgb 10.2 g/dl (12.0-16.0) L 12/06/24 Hct 31.4 % (37.0-47.0) L 12/06/24 MCV 91.5 fL (80.0-100.0) 12/06/24 MCH 29.7 pg (25.0-34.0) 12/06/24 MCHC 32.5 g/dL (32.0-36.0) 12/06/24 RDW Standard Deviation 53.4 fL (36.4-46.3) H 12/06/24 RDW Coefficient of Variation 15.8 % (11.5-14.5) H 12/06/24 Plt Count 46 K/uL (130-400) L 12/06/24 MPV 13.8 fL (9.4-12.4) H 12/06/24 Neutrophils (%) (Auto) 67.4 % 12/06/24 Lymphocytes (%) (Auto) 16.8 % 12/06/24 Monocytes # (Auto) 0.91 K/uL (0.11-0.59) H 12/06/24 Eosinophils # (Auto) 0.08 K/uL (0.00-0.50) 12/06/24 Immature Granulocyte % (Auto) 0.5 % 12/06/24 Neutrophils # (Auto) 4.43 K/uL (1.40-6.50) 12/06/24 Lymphocytes # (Auto) 1.10 K/uL (1.20-3.40) L 12/06/24 Monocytes # (Auto) 0.91 K/uL (0.11-0.59) H 12/06/24 Eosinophils # (Auto) 0.08 K/uL (0.00-0.50) 12/06/24 Basophils # (Auto) 0.01 K/uL (0.00-0.20) 12/06/24 Immature Granulocyte # (Auto) 0.03 K/uL (0.01-0.20) 5 Na 137 mmol/L (136-145) 12/06/24 K 4.1 mmol/L (3.5-5.1) 12/06/24 Cl 112 mmol/L (98-107) H 12/06/24 CO2 18 mmol/L (21-32) L 12/06/24 Anion Gap 7 (3-11) 12/06/24 BUN 67 mg/dl (6-23) H 12/06/24 Creatinine 1.60 mg/dl (0.6-1.2) H 12/06/24 BUN/Creatinine Ratio 41.9 (10-20) H 12/06/24 Glu 161 mg/dl (70-99(Fasting)) H 12/06/24 Ca 8.1 mg/dl (8.6-10.3) L 12/06/24 Total Bilirubin 0.7 mg/dl (0.2-1.0) 12/06/24 AST 57 U/L (13-39) H 12/06/24 ALT 49 U/L (7-52) 12/06/24 Alkaline Phosphatase 119 U/L (34-104) H 12/06/24 TP 5.7 gm/dl (6.0-8.3) L 12/06/24 Albumin 3.0 gm/dl (3.4-5.0) L 12/06/24 Globulin 2.7 gm/dl (2.5-4.0) 12/06/24 Albumin/Globulin Ratio 1.1 (0.9-2) 12/06/24 Mg 1.9 mg/dl (1.7-2.4) 12/06/24 12:17 Calcium Level 8.1 mg/dl (8.6-10.3) L 12/06/24 12:17 Prothromb Time International Ratio 1.1 (0.9-1.1) 12/06/24 12:0 1 Diagnostic Findings (Past 24 Hours) Chest CT 12/06/24 10:54 CT OF THE CHEST WITHOUT IV CONTRAST CLINICAL HISTORY: Respiratory failure. COMPARISON STUDY: Chest radiograph December 01, 2023. Chest radiograph performed earlier today. TECHNIQUE: Axial images of the chest were obtained without IV contrast. Images were reviewed in the axial, sagittal, and coronal planes. IV contrast was not administered for this examination. Automated exposure control was utilized for the study. A dose lowering technique was utilized adhering to the principles of ALARA. FINDINGS: The endotracheal tube is well positioned, 2.3 cm above the rylie. A left subclavian pacer is in place. Multifocal venous gas is related to the IV. Moderate to marked cardiomegaly is noted. There is moderate coronary artery calcification. No pericardial effusion is present. A left lobe goiter measures 6.5 x 5.8 cm. This has mildly increased in size since CT of May 28, 2007. There is rightward displacement of trachea without compression. Lungs are suboptimally assessed due to respiratory motion. Lower lobe linear densities and groundglass opacities favor atelectasis. There are are mild secretions within the airways. There is no consolidation to suggest pneumonia. Mild interlobular septal thickening is present. There is no pneumothorax or pleural effusion. Extensive anterior osteophytosis of the thoracic spine is incidentally noted. A right lower cervical nodule is partially imaged on this exam. This measures at least 1.9 cm. This favors an enlarged lymph node. Abdomen and pelvis CT will be reported separately. Tip of nasogastric tube is within the body of the stomach. IMPRESSION: 1. Well-positioned endotracheal and nasogastric tubes. 2. Cardiomegaly. Mild interstitial thickening. This favors mild pulmonary edema. 3. Lower lung densities and groundglass opacities which favor atelectasis. No definite consolidation to suggest pneumonia. Mild secretions within the airways. 4. 1.9 cm right lower neck nodule, partially imaged on this exam. This favors an enlarged lymph node. Outpatient CT of the neck with contrast is recommended. 5. Left lobe thyroid goiter. ACT 112: Negative or not required by law. Electronically signed by: Coleman Gonzalez M.D. 12/06/2024 11:56 AM Chest X-Ray 12/06/24 10:54 XR chest 1V portable CLINICAL HISTORY: weakness postintubation COMPARISON STUDY: 08/31/2022 FINDINGS: Single view chest demonstrates an endotracheal tube tip 2.5 cm above the rylie. Bibasilar reticular densities are once again noted to most likely representing a component of fibrosis. An early superimposed left basilar infiltrate cannot be excluded. Dual-lead pacemaker electrode leads are in place. The nasogastric tube tip identified consistent with a mid gastric tip placement. IMPRESSION: Endotracheal tube tip 2.5 cm above the rylie. ACT 112: Negative or not required by law. Electronically signed by: Jana Schumacher M.D. 12/06/2024 11:[address] 12/06/24 10:54 CT OF THE HEAD WITHOUT CONTRAST CLINICAL HISTORY: Altered mental status. COMPARISON STUDY: MRI of the brain April 30, 2007. Head CT September 08, 2019. TECHNIQUE: Helical axial images of the head were obtained without IV contrast. Automated exposure control was utilized for the study. A dose lowering technique was utilized adhering to the principles of ALARA. FINDINGS: No acute intracranial hemorrhage, midline shift or mass effect is present. The ventricular system is stable. The basal cisterns are patent. No extra-axial collections are present. There are no findings to suggest acute dural sinus thrombosis or acute territorial infarct. No significant calvarial abnormalities are present. Visualized portions of the sinuses and mastoid air cells are clear. Secretions within the nasopharynx are related to intubation. Multifocal venous gas is incidentally noted. This is related to IV placement. IMPRESSION: No acute intracranial findings. ACT 112: Negative or not required by law. Electronically signed by: Coleman Gonzalez M.D. 12/06/2024 11:45 AM Abdomen/Pelvis CT 12/06/24 10:[address] WITHOUT CONTRAST CT DOSE: 2663.67 mGy.cm HISTORY: eweak, resp failure, hx gibleed TECHNIQUE: Multiaxial CT images of the abdomen and pelvis were performed without contrast. Sagittal and coronal reconstructions were done. A dose lowering technique was utilized adhering to the principles of ALARA. COMPARISON STUDY: 12/01/2023 FINDINGS: Since the prior examination, the heart size is increased. Bibasilar linear opacities have developed in the dependent portions of both lower lobes. Mild generalized haziness in the subcutaneous fat has developed as well as haziness at the root of the mesentery and in the peripancreatic fat. There is no ascites. Since the prior study, the right renal calculi have moved into the proximal right ureter causing moderate right pyelocaliectasis. The liver and spleen demonstrate no focal lesions. No adrenal gland abnormality identified. There is no aortic aneurysm or periaortic adenopathy. There is no bowel obstruction or free air. There is no evidence of colitis or diverticulitis. Numerous colonic diverticuli are once again noted. In the pelvis, there is a small fat-containing umbilical hernia. The uterus is midline. Is a Capone catheter in a collapsed bladder. Sigmoid diverticula are noted. There is no fluid or blood in the cul-de-sac. IMPRESSION: Right renal stones that were previously in the renal pelvis have moved into the proximal right ureter and are associated with moderate proximal right hydronephrosis. Mild haziness in the subcutaneous fat and root of the mesentery in conjunction with mild cardiomegaly raise the possibility of CHF versus fluid overload. Haziness in the peripancreatic fat. Cannot exclude acute pancreatitis. Bibasilar airspace opacities most likely dependent discoid atelectasis. Pulmonary edema or developing infiltrate cannot be excluded. No intra-abdominal hemorrhage identified. ACT 112: Negative or not required by law. The above report was generated using voice recognition software. It may contain grammatical, syntax or spelling errors. Electronically signed by: Jana Schumacher M.D. 12/06/2024 12:10 PM I & O Totals 24 Hours 12/05/24 12/06/24 12/07/24 06:59 06:59 06:59 Intake Total 1010.395 / 1010.395 Balance 1010.395 / 1010.395 Cumulative 12/06/24 10:32 thru 12/06/24 12:10 Intake Total 1010.395 Balance 1010.395 RT Ventilator Mngmt (Last Documented) Ventilator Ordered Settings Respiratory Rate 18 12/06/24 10:32 Ventilator - PT Measurements Respiratory Rate 18 Coding Level of Care Code 56209 CRITICAL CARE 1ST 30-74M Diagnoses PJ (acute kidney injury) N17.9 Stage 3b chronic kidney disease N18.32 CKD (chronic kidney disease) stage 4, GFR 15-29 ml/min N18.4 Atrial fibrillation, unspecified type I48.91 Atrial fibrillation type: unspecified Encephalopathy acute G93.40 (4) Atrial fibrillation Atrial fibrillation type: unspecified Qualified Code(s): I48.91 - Unspecified atrial fibrillation
[2024-12-06] MEDS: PROPOFOL IV EMULSION 10 MG/ML 100 ML VIAL IV ONE (12:08)
[2024-12-06] MEDS: propofoL 1,000 MG/100 ML VIAL IV SCH (12:08)
[2024-12-06] MEDS: NOREPINEPHRINE/D5W 4 MG/250 ML IV ONE (12:11)
[2024-12-06] MEDS: STAT IV Infusion **Titration per Protocol STA (12:11)
--- NOTE | 2024-12-06 12:13 | CT Scan Report ---
ABDOMEN AND PELVIS CT WITHOUT CONTRAST CT DOSE: 2663.67 mGy.cm HISTORY: eweak, resp failure, hx gibleed TECHNIQUE: Multiaxial CT images of the abdomen and pelvis were performed without contrast. Sagittal and coronal reconstructions were done. A dose lowering technique was utilized adhering to the princip les of JESSIE. COMPARISON STUDY: 12/01/2023 FINDINGS: Since the prior examination, the heart size is increased. Bibasilar linear opacities have d eveloped in the dependent portions of both lower lobes. Mild generalized haziness in the subcutaneous fat has developed as well as haziness at the root of the mesentery and in the peripancreatic fat. Th ere is no ascites. Since the prior study, the right renal calculi have moved into the proximal right ureter causing mode rate right pyelocaliectasis. The liver and spleen demonstrate no focal lesions. No adrenal gland abnormality identified. There is no aortic aneurysm or periaortic adenopathy. There is no bowel obstruction or free air. There is no evidence of colitis or diverticulitis. Numerou s colonic diverticuli are once again noted. In the pelvis, there is a small fat-containing umbilical hernia. The uterus is midline. Is a Capone ca theter in a collapsed bladder. Sigmoid diverticula are noted. There is no fluid or blood in the cul-d e-sac. IMPRESSION: Right renal stones that were previously in the renal pelvis have moved into the proximal right ureter and are associated with moderate proximal right hydronephrosis. Mild haziness in the subcutaneous fat and root of the mesentery in conjunction with mild cardiomegaly raise the possibility of CHF versus fluid overload. Haziness in the peripancreatic fat. Cannot exclude acute pancreatitis. Bibasilar airspace opacities most likely dependent discoid atelectasis. Pulmonary edema or developing infiltrate cannot be excluded. No intra-abdominal hemorrhage identified. ACT 112: Negative or not required by law. The above report was generated using voice recognition software. It may contain grammatical, syntax o r spelling errors. Electronically signed by: Jana Schumacher M.D. 12/06/2024 12:10 PM
[2024-12-06] MEDS: SODIUM CHLORIDE 0.9% 500 ML IV ONE (12:20)
[2024-12-06 12:30] LABS: Appearance Urine Cloudy (Clear); Bacteria Urine Automated 1+ (None Seen); Bilirubin Urine Negative (Negative); Blood Urine 1+ (Negative); Cast Urine Automated >20 /lpf (0-2); Color Urine Yellow; Glucose Urine UA Negative (Negative); Hyaline Casts Urine Present /lpf (None Presnt); Ketones Urine Negative (Negative); Leukocyte Esterase Urine Trace (Negative); Nitrite Urine Negative (Negative); Protein Urine 2+ (Negative); Specific Gravity Urine 1.017 (1.000-1.030); Urobilinogen Urine Negative (Negative)
[2024-12-06] MEDS: CEFEPIME 2000MG 2,000 MG/20 ML SYR IV STA (12:51)
[2024-12-06 13:04] LABS: Adenovirus PCR Not Detected (NotDetected); Bordetella parapertussis PCR Not Detected (NotDetected); Bordetella pertussis PCR Not Detected (NotDetected); Chlamydia pneumoniae PCR Not Detected (NotDetected); Coronavirus 229E PCR Not Detected (NotDetected); Coronavirus CoV-2 (COVID19)PCR Not Detected (NotDetected); Coronavirus HKU1 PCR Not Detected (NotDetected); Coronavirus NL63 PCR Not Detected (NotDetected); Coronavirus OC43PCR Not Detected (NotDetected); Human Metapneumovirus PCR Not Detected (NotDetected); Influenza A PCR Not Detected (NotDetected); Influenza B PCR Not Detected (NotDetected); Mycoplasma pneumoniae PCR Not Detected (NotDetected); Parainfluenza Virus 1 PCR Not Detected (NotDetected); Parainfluenza Virus 2 PCR Not Detected (NotDetected); Parainfluenza Virus 3 PCR Not Detected (NotDetected); Parainfluenza Virus 4 PCR Not Detected (NotDetected); Respiratory Syncytial VirusPCR Not Detected (NotDetected); Rhinovirus/Enterovirus PCR Not Detected (NotDetected)
--- NOTE | 2024-12-06 13:10 | Electrocardiogram Report ---
Test Reason : Blood Pressure : */* mmHG Vent. Rate : 78 BPM Atrial Rate : 357 BPM P-R Int : * ms QRS Dur : 208 ms QT Int : 490 ms P-R-T Axes : * -76 95 degrees QTcB Int : 558 ms Ventricular-paced rhythm with occasional AV dual-paced complexes Abnormal ECG When compared with ECG of 01-Dec-2024 10:55, Electronic ventricular pacemaker has replaced Electronic atrial pacemaker Confirmed by Toño Gale ([id number]) on 12/06/2024 1:09:57 PM Referred By: REFERRED SELF Confirmed By: Toño Gale
--- NOTE | 2024-12-06 13:22 | Urology Consultation ---
Date of Consultation December 06, 2024 Assessment & Plan (1) Kidney stone on right side: (2) Respiratory failure: (3) Unresponsive: (4) Encephalopathy acute: (5) PJ (acute kidney injury): (6) Stage 3b chronic kidney disease: Plan Severe acute sepsis with obstructing right ureteral stone causing severe hydronephrosis and perinephric stranding. Patient presented unresponsive with severe hypotension hypothermia severe illness altered mental status and encephalopathy. Patient underwent emergent evaluation and resuscitation and is actively undergoing resuscitation and tight monitoring by the ER. He is going to be admitted to the ICU. Patient's imaging was reviewed interpreted by myself all labs and vitals were reviewed interpreted by myself please see the full reports from the medical records. Of note patient's creatinine was 2.10. White count 6.56. Hemoglobin 10.2. Patient CT examination was thoroughly reviewed interpreted by myself with severe signs of obstruction secondary to stones within the mid/proximal ureter causing severe hydronephrosis. Previous imaging was also reviewed. Extensive conversation with patient's family. Patient was intubated and sedated due to unresponsive presentation. Patient's family was agreeable for urgent/emergent intervention. Discussed need for emergent intervention due to severity of disease. Extensive conversation review of risk and benefits and discussion of options moving forward. Emergent consent was received through the patient's family. Consent will be signed by them. Risks and benefits discussed at length for procedure. These include bleeding, infection, injury to surrounding tissues or organs, and risks associated with anesthesia. Patient states understanding and agrees to proceed. Will sign consent and schedule. Coordinated specifically with the emergency department, the ICU team, the anesthesiologist, and the practice support specialist. Will plan to move forward with emergent intervention in the OR for placement of stent and catheter. Plan for cystoscopy with possible right stent placement. Greater than 95 minutes in evaluation, assessment, imaging review, workup, and evaluation with plans for emergent surgical intervention secondary to acute illness and severe sepsis with multi organ failure History of Present Illness History of Present Illness Urgent/emergent consultation from ER for acutely ill and septic patient with UTI/Pyelo, discomfort, and ill feelings. Found unresponsive in respiratory failure. Found to have signficant hypothermia and severe hypotension with pressure of 50/37. Patient had been dealing with worsening illness. Found severely ill by family and brought for emergent assessment. Patient had stones in past and previously developed sudden onset of pain into flank going down and radiating into groin and back in waves comes and goes. Altered mental status due to acute illness. Delirium with unresponsive. Severe issues. Patient's family was bedside. Patient already intubated and sedated. Discussed and reviewed patient's personal medical, surgical, social, and family history for any history of issues, infections, and disease. Also, discussed p katarzyna's medical/surgery history especially related to any history of urinary issues or stone disease. Patient is undergoing intense/critical management for acute illness and is going to be admitted to undergo critical care. Hospitalist/ICU team will be admitting and is undergoing observation with broad spectrum IV antibiotics. Allergies Allergy/AdvReac Type Severity Reaction Status Date / Time latex Allergy Unknown Rash Verified 11/30/24 08:54 Penicillins Allergy Unknown Rash, Verified 11/30/24 08:54 heart palpitations Sulfa (Sulfonamide Allergy Unknown rash Verified 11/30/24 08:54 Antibiotics) cephalexin AdvReac Unknown Diarrhea Verified 11/30/24 08:54 Home Medications Medication Instructions Recorded Confirmed Type dronedarone 400 mg tablet (Multaq) 400 mg PO BID 06/19/18 12/06/24 History multivitamin 1 tab PO QAM 06/19/18 12/06/24 History nitroglycerin 0.4 mg sublingual 0.4 mg sublingual Q5M PRN Chest 06/19/18 12/06/24 History tablet (Nitrostat) Pain biotin 10 mg tablet 10 mg PO QAM 04/05/19 12/06/24 History acetaminophen 500 mg tablet 1,000 mg PO Q6H PRN Pain 08/31/22 12/06/24 History (Tylenol Extra Strength) cholecalciferol (vitamin D3) 125 125 mcg PO QAM 08/31/22 12/06/24 History mcg (5,000 unit) tablet (Vitamin D3) Lift Chair #1 ea 09/27/22 11/23/24 Rx bromelains 500 mg tablet 500 mg PO DAILY 03/10/24 12/06/24 History apixaban 2.5 mg tablet (Eliquis) 2.5 mg PO BID 06/01/24 12/06/24 History lisinopril 5 mg tablet 5 mg PO DAILY #90 tabs 10/06/24 12/06/24 Rx gentamicin 0.1 % topical ointment 1 applic topical UD 12/06/24 12/06/24 History hydrochlorothiazide 12.5 mg tablet 12.5 mg PO UD 12/06/24 12/06/24 History metoprolol succinate 50 mg 50 mg PO QAM 12/06/24 12/06/24 History tablet,extended release 24 hr (Toprol XL) Patient History Medical History History of blood transfusion 11/2023 Osteomyelitis of toe of right foot hx / sx intervention Gastric ulcer reason for upcoming procedure / follow up History of recent hospitalization 11/2023 [facility] - stomach ulcer 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 dressing changes at wound clinich on Tuesdays and home nursing on Fridays History of basal cell carcinoma HTN (hypertension) Pacemaker placed 2006 - .fabiola -- [employer] -- last check 10/2022 - upcoming 01/16/24 History of myocardial infarction 1990s Slow to wake up after anesthesia denies trouble coming out of /pt reports "just no strong dosages, minimal always works" Osteoarthritis Osteopenia Multinodular goiter denies Hyperthyroidism hx Atrial fibrillation, chronic on warfarin. Follows with René Block PA-C. no hx cardioversion. Chronic venous insufficiency Surgical History History of endoscopy 11/2023 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 H/O excision of mass (01/29/23) Scalp Mass Excision(Right) - Red Farfan MD, FACS Status post ablation of incompetent vein using laser hx 2 ablations History of excision of lesion (01/23/11) Wide excision lesion left lower extremity with full thickness skin graft. Dr. Farfan S/P Mohs surgery for basal cell carcinoma History of tonsillectomy and adenoidectomy History of arthroscopy of knee History of cataract surgery Family History Mother Cardiac disorder Father Hypertension Denies family history of Ovarian cancer Prostate cancer Myocardial infarction Breast cancer Colorectal cancer Social History Smoking Status: Never smoker Tobacco Type: Cigarettes Second Hand Exposure: No; Do You Dip or Chew Tobacco: No; Hx Alcohol Use: No Hx Substance Use: No Preferred Language: Thai Communication Ability: Effective Visual Impairment: No Limitations Hearing Ability: Normal Master Yacht Required: No Beliefs That Will Affect Care: None marital status: / Current Living Situation: Alone Current Living Situation Comment: live by myself but son has stayed with me since d/c from hospital 11/2023 current occupational status: employed current occupation: [employer] How many Children do You have: 3 Feels Safe at Home: Yes Childhood Exposure to Second-Hand Smoke: No Diet: regular Diet Comment: regular caffeine: No during the past year weight has: remained stable Dental Care, Regularly: Yes Physical Activity Frequency: Does not Exercise Seatbelt Use: always Sunscreen Use: Yes Assistive Devices: Cane, Denture - Upper, Walker and Other Review of Systems Review of Systems: All systems reviewed & are unremarkable except as noted in HPI & below, Unobtainable due to cognitive status, Unobtainable due to endotracheal tube and Unobtainable due to reduced consciousness Limited due to patient illness Physical Exam Physical Exam: General: Acutely ill. Undergoing critical care management for acute severe infection. Intubated and sedated. HEENT: Normocephalic Atraumatic. Inspection normal. Cranial Nerves 2-12 Grossly intact. Nares are clear. Neck is supple. Normal inspection of face. Normal inspection of neck. Neurologic: No deficits on inspection. Baseline for motor function and sensory. Psychologic: Sedated. acute delirium secondary to illness Respiratory: Mild labored. Intubated. No use of accessory muscles. No severe dyspnea. Cardiovascular: No tachycardia Skin: [place] and Dry. No rashes or visible lesions. Febrile Extremities: Moving without issues. No motor deficits on inspection Lymphatics: Mild edema Abdomen: Mildly distended. No rebound or guarding. Results & Data Vital Signs (Past 12 Hours) Vital Signs Temp Pulse Resp BP Pulse Ox O2 Del Method 12/06/24 12:52 127/71 12/06/24 12:44 165/86 H 12/06/24 12:38 177/91 H 12/06/24 12:30 174/90 H 12/06/24 12:30 60 18 98 12/06/24 12:28 173/92 H Mechanical Vent 12/06/24 12:27 60 18 99 12/06/24 12:26 163/84 H 12/06/24 12:26 163/84 H 12/06/24 12:22 121/70 12/06/24 12:21 61 18 99 12/06/24 12:20 143/73 H 12/06/24 12:18 180/92 H 12/06/24 12:12 183/92 H 12/06/24 12:06 187/92 H 12/06/24 12:06 60 18 98 Mechanical Vent 12/06/24 12:04 187/95 H 12/06/24 12:01 32.3 C L 12/06/24 12:00 185/95 H 12/06/24 11:52 117/66 12/06/24 11:48 104/65 12/06/24 11:46 113/70 12/06/24 11:20 108/71 12/06/24 11:20 108/71 12/06/24 11:18 60 18 92 12/06/24 11:18 129/77 12/06/24 11:16 131/79 12/06/24 11:11 143/84 H 12/06/24 11:02 50/37 L 12/06/24 11:02 50/37 L 12/06/24 11:00 78 18 97 12/06/24 10:56 181/86 H 12/06/24 10:55 79 12/06/24 10:54 218/107 H 12/06/24 10:54 80 19 93 12/06/24 10:54 60 18 Mechanical Vent 12/06/24 10:45 121/79 12/06/24 10:32 Mechanical Vent 12/06/24 10:32 32.3 C L 12/06/24 10:32 75 18 121/79 97 Non-rebreather PG Care Time/CCT Total # of Minutes Spent Total Time Spent with Patient: Total time spent is greater than 50% in coordination of care (as documented) at patient's floor/unit and/or counseling patient: Coding Level of Care Code 02531 INT INP/OBS CARE 3/75MIN Diagnoses Kidney stone on right side N20.0 Respiratory failure J96.00 Chronicity: acute Respiratory failure complication: unspecified whether with hypoxia or hypercapnia Unresponsive R41.89 Encephalopathy acute G93.40 PJ (acute kidney injury) N17.9 Stage 3b chronic kidney disease N18.32 (2) Respiratory failure Chronicity: acute Respiratory failure complication: unspecified whether with hypoxia or hypercapnia Qualified Code(s): J96.00 - Acute respiratory failure, unspecified whether with hypoxia or hypercapnia
[2024-12-06 13:26] LABS: Albumin Globulin Ratio 1.1 (0.9-2); BUN Creatinine Ratio 41.9 (10-20); Bilirubin,Total 0.7 mg/dl (0.2-1.0); Calcium 8.1 mg/dl (8.6-10.3); Creatinine Clr Calc Pharmacy 25.8 ml/min; Globulin 2.7 gm/dl (2.5-4.0); Magnesium 1.9 mg/dl (1.7-2.4); Potassium 4.1 mmol/L (3.5-5.1); Total Protein 5.7 gm/dl (6.0-8.3)
[2024-12-06 13:26] LABS: Amphetamines+Metham, Urine Neg (Neg); Barbiturates, Urine Neg (Neg); Benzodiazepine, Urine Neg (Neg); Cocaine, Urine Neg (Neg); Fentanyl, Urine Pos (Neg); MDMA (Ecstacy), Urine Neg (Neg); Marijuana, Urine Neg (Neg); Methadone, Urine Neg (Neg); Opiate, Urine Pos (Neg); Phencyclidine, Urine Neg (Neg)
[2024-12-06 13:30] LABS: Troponin I High Sensitivity 8.4 pg/ml (0-14)
[2024-12-06 13:37] LABS: INR 1.1 (0.9-1.1); Partial Thromboplastin Ratio 1.4; Partial Thromboplastin Time 37 Seconds (21-31); Prothrombin Time 12.1 Seconds (9.0-12.0)
[2024-12-06 13:39] LABS: Thyroid Stimulating Hormone 2.172 uIu/ml (0.300-4.500)
--- NOTE | 2024-12-06 13:52 | Anesthesiology Consultation ---
Date of Service December 06, 2024 Assessment & Plan ASA [id number] Proposed Anesthesia Anesthesia Type: General Risk / Benefits Reviewed With: PT / POA / Parent / Guardian, Accepts Plan and Informed Consent Obtained History Surgery Operation Date: 12/06/24 09:55 Proposed Procedures p Cystoscopy, Right Stent Placement - Chalino Cruz, DO Height/Weight Height: 5 ft 6 in Weight: 79.1 kg Allergies Allergy/AdvReac Type Severity Reaction Status Date / Time latex Allergy Unknown Rash Verified 11/30/24 08:54 Penicillins Allergy Unknown Rash, Verified 11/30/24 08:54 heart palpitations Sulfa (Sulfonamide Allergy Unknown rash Verified 11/30/24 08:54 Antibiotics) cephalexin AdvReac Unknown Diarrhea Verified 11/30/24 08:54 Medications Home Medications Medication Instructions Recorded Confirmed Last Taken dronedarone 400 mg tablet (Multaq) 400 mg PO BID 06/19/18 12/06/24 01/28/24 11:00 multivitamin 1 tab PO QAM 06/19/18 12/06/24 01/27/24 nitroglycerin 0.4 mg sublingual 0.4 mg sublingual Q5M PRN Chest 06/19/18 12/06/24 06/23/20 tablet (Nitrostat) Pain biotin 10 mg tablet 10 mg PO QAM 04/05/19 12/06/24 01/27/24 acetaminophen 500 mg tablet 1,000 mg PO Q6H PRN Pain 08/31/22 12/06/24 01/27/24 (Tylenol Extra Strength) cholecalciferol (vitamin D3) 125 125 mcg PO QAM 08/31/22 12/06/24 01/27/24 mcg (5,000 unit) tablet (Vitamin D3) Lift Chair #1 ea 09/27/22 11/23/24 Unknown bromelains 500 mg tablet 500 mg PO DAILY 03/10/24 12/06/24 Unknown apixaban 2.5 mg tablet (Eliquis) 2.5 mg PO BID 06/01/24 12/06/24 Unknown lisinopril 5 mg tablet 5 mg PO DAILY #90 tabs 10/06/24 12/06/24 Unknown gentamicin 0.1 % topical ointment 1 applic topical UD 12/06/24 12/06/24 Unknown hydrochlorothiazide 12.5 mg tablet 12.5 mg PO UD 12/06/24 12/06/24 Unknown metoprolol succinate 50 mg 50 mg PO QAM 12/06/24 12/06/24 Unknown tablet,extended release 24 hr (Toprol XL) Active Medications Generic Name Dose Route Start Last Admin Trade Name Freq PRN Reason Stop Dose Admin Propofol 1,000 mg in 100 mls @ 9.492 mls/hr 12/06/24 11:00 12/06/24 13:35 Diprivan IV 12/09/24 10:59 25 mcg/kg/min .[id number] SHAHEEN 11.9 mls/hr Titration Protocol 20 MCG/KG/MIN Norepinephrine Bitartrate 4 mg in 250 mls @ 17.798 mls/hr 12/06/24 11:45 12/06/24 12:44 Levophed/D5w IV 01/05/25 11:44 0.06 mcg/kg/min .Q14H3M SHAHEEN 17.8 mls/hr Titration Protocol 0.06 MCG/KG/MIN Sodium Chloride 1,000 mls @ 999 mls/hr 12/06/24 12:00 12/06/24 12:10 Nss IV 12/06/24 14:00 Infused .Q1H1M SHAHEEN Infusion Past Medical History Medical History History of blood transfusion 11/2023 Osteomyelitis of toe of right foot hx / sx intervention Gastric ulcer reason for upcoming procedure / follow up History of recent hospitalization 11/2023 [facility] [place] - stomach ulcer 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 dressing changes at wound clinich on Tuesdays and home nursing on Fridays History of basal cell carcinoma HTN (hypertension) Pacemaker placed 2006 - .fabiola -- [employer] -- last check 10/2022 - upcoming 01/16/24 History of myocardial infarction 1990s Slow to wake up after anesthesia denies trouble coming out of /pt reports "just no strong dosages, minimal always works" Osteoarthritis Osteopenia Multinodular goiter denies Hyperthyroidism hx Atrial fibrillation, chronic on warfarin. Follows with René Block PA-C. no hx cardioversion. Chronic venous insufficiency Exercise / Class Metabolic Activity II 4-5 Yardwork/Stairs/Walk up hill Past Family History Family History Mother Cardiac disorder Father Hypertension Denies family history of Ovarian cancer Prostate cancer Myocardial infarction Breast cancer Colorectal cancer Past Surgical History Surgical History History of endoscopy 11/2023 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 H/O excision of mass (01/29/23) Scalp Mass Excision(Right) - Red Farfan MD, FACS Status post ablation of incompetent vein using laser hx 2 ablations History of excision of lesion (01/23/11) Wide excision lesion left lower extremity with full thickness skin graft. Dr. Farfan S/P Mohs surgery for basal cell carcinoma History of tonsillectomy and adenoidectomy History of arthroscopy of knee History of cataract surgery Past Anesthesia History No Hx of Anesthesia Complications and No Family Hx of Anesthesia Complications History of PONV No Hx of PONV and No Hx of Motion Sickness Social History Smoking Status: Never smoker Do You Dip or Chew Tobacco: No Hx Alcohol Use: No Hx Substance Use: No substance use type: does not use Review of Systems denies fever/cough/ colds/ chest pain/ SOB/ MIKAYLA denies MIKAYLA Physical Exam Vital Signs Last Vital Signs Temp 32.7 C L 12/06/24 13:32 Pulse 60 12/06/24 13:30 Resp 18 12/06/24 13:30 BP 111/65 12/06/24 13:32 Pulse Ox 97 12/06/24 13:30 O2 Del Method Mechanical Vent 12/06/24 12:28 Constitutional + altered mental status and + mechanically ventilated ENMT Mouth: no TMJ abnormality and no dentition abnormality Thyromental Distance: > or= 3.5 Finger Breadths Mallampati Class: Other (unable to assess) Neck + limited neck extension Respiratory normal respiratory effort; no respiratory distress Auscultation: lungs clear to auscultation bilaterally Cardiovascular Rate/Rhythm: regular rate and regular rhythm Psychiatric Orientation: + not alert and + not oriented x 3 Testing Laboratory Results 12/06/24 10:49 12/06/24 12:17 PT 12.1 Seconds (9.0-12.0) H 12/06/24 12:01 INR 1.1 (0.9-1.1) 12/06/24 12:01 APTT 37 Seconds (21-31) H 12/06/24 12:01 Urine Color Yellow 12/06/24 11:59 Urine Appearance Cloudy (Clear) A 12/06/24 11:59 Urine pH 5.0 (4.5-7.5) 12/06/24 11:59 Ur Specific [place] 1.017 (1.000-1.030) 12/06/24 11:59 Urine Protein 2+ (Negative) H 12/06/24 11:59 Urine Glucose (UA) Negative (Negative) 12/06/24 11:59 Urine Ketones Negative (Negative) 12/06/24 11:59 Urine Nitrite Negative (Negative) 12/06/24 11:59 Ur Leukocyte Esterase Trace (Negative) H 12/06/24 11:59 Urine WBC (Auto) 6-10 /hpf (0-5) H 12/06/24 11:59 Urine RBC (Auto) 3-5 /hpf (0-2) H 12/06/24 11:59 U Hyaline Cast (Auto) >20 /lpf (0-2) H 12/06/24 11:59 U Epithel Cells (Auto) 6-10 /hpf (0-2) H 12/06/24 11:59 Urine Bacteria (Auto) 1+ (None Seen) H 12/06/24 11:59 12/06/24 10:52 POC Glucose (other) 93
--- NOTE | 2024-12-06 14:02 | History & Physical Report ---
Date of Service December 06, 2024 Assessment & Plan (1) Respiratory failure: Plan: Acute hypoxemic respiratory failure with unclear etiology - Status post intubation and placement on mechanical ventilation - Continue vent support with current settings - Admit to ICU with vitals per unit protocol - NPO, drop NGT if not already done - Hold home medications - Maintain meza catheter, strict I/O monitoring q shift - STAT ABG, wean FiO2 as able to keep sat >90% - Resp BioFire negative - Received dose of cefepime 2g in ER, will continue with 2g IV q24 based on creatinine clearance (cover for respiratory infection + infected kidney stone), carries h/o pseudomonal infection - No further IVF given concern for volume overload, may benefit from dose of IV diuresis if BP will tolerate - Currently requiring vasopressor support - continue Levophed to maintain MAP of 65 (2) Encephalopathy acute: Plan: Unclear etiology - CTH negative - Urine appears infected, but again has epithelial cells noted, could be contaminated but has a known renal stone in R ureter - PCT 0.14 and lactate WNL - Hypothermic but no leukocytosis or shift - Urine and blood cultures ordered, pending - Continue empiric Cefepime as noted above - Trend HS trop (3) Kidney stone on right side: Plan: Acute resulting in moderate R-sided hydronephrosis - Urology consulted, appreciate assistance - For OR this afternoon for cystoscopy with stent placement (4) Thrombocytopenia: Plan: New onset - Unclear etiology - Defer pharmacologic ppx for VTE, hold Eliquis - Consider peripheral smear - Trend in AM w/ CBC Plan Above plan of care has been d/w Dr. Ford who will also see and evaluate this patient. Plan also discussed with Dr. Patel, ICU senior oracle pl sql developer. AM labs have been ordered including cbc, bmp, and mag. Further orders will be implemented as clinically warranted by attending and ICU provider. History of Present Illness Chief Complaint: Respiratory arrest Primary Care Provider: Kelvin Vee DO Radha is an 89 yo F with a pmhx of HTN, GI bleeding, afib, CAD w/ h/o [place], hyperthyroidism, CKD stage IIIa, chronic venous insufficiency who presents to the ER initially for increased generalized weakness since an ER visit last Friday. She summoned EMS services d/t complaints of generalized weakness, increased confusion (per family) and home health nurse had reported concerns due to hypotension as well. In route to the hospital in the ambulance, pt became unresponsive and went into respiratory arrest. She was bagged and the patient did resume spontaneous breathing on her own but was not able to follow commands or protect her airway. She was medicated with a dose of epinephrine prior to arrival due to hypotension. She was intubated in the ER upon arrival. CT head, chest and abdomen obtained, concerns for pulmonary edema noted on chest imaging and she was also found to have a right sided ureteral stone with subsequent moderate right hydronephrosis. A meza catheter has been placed. Her urine does appear infected, however, epithelial cells noted on UA and subsequently may represent contamination. She is afebrile w/o leukocytosis or shift, a normal PCT and lactate level. She was bolused with 2L of NSS in the ER and has been placed on a levophed gtt to stabilize BP. She received a dose of IV Cefepime 2g, she does have a h/o pseudomonal infection. Plan of care d/w Dr. Patel, senior oracle pl sql developer, who has seen and evaluated the patient. She has also been seen by Dr. Cruz who plans to perform cystoscopy with right stent placement. Pt agreeable. Her creatinine came back at 1.60 which has trended down from last creatinine of 2.10 on 12/01. Her last ABG was obtained at time of intubation with a pH of 7.23, pCO2 34, and pO2 458 w/ sat of 100%. She is currently on assist control mode. She is hypothermic with a bear hugger in place. She also is noted to have an acute drop in her platelets at 46, was 75 on 12/01, 102 on 11/26 and last normal at 133 on 10/12/2024. Family is agreeable to proceed with attempt at treatment but do not want pt to be dependent on mechanical ventilation and are agreeable to palliative extubation if she fails to improve following stone treatment. Allergies Allergy/AdvReac Type Severity Reaction Status Date / Time latex Allergy Unknown Rash Verified 11/30/24 08:54 Penicillins Allergy Unknown Rash, Verified 11/30/24 08:54 heart palpitations Sulfa (Sulfonamide Allergy Unknown rash Verified 11/30/24 08:54 Antibiotics) cephalexin AdvReac Unknown Diarrhea Verified 11/30/24 08:54 Home Medications Medication Instructions Recorded Confirmed Type dronedarone 400 mg tablet (Multaq) 400 mg PO BID 06/19/18 12/06/24 History multivitamin 1 tab PO QAM 06/19/18 12/06/24 History nitroglycerin 0.4 mg sublingual 0.4 mg sublingual Q5M PRN Chest 06/19/18 12/06/24 History tablet (Nitrostat) Pain biotin 10 mg tablet 10 mg PO QAM 04/05/19 12/06/24 History acetaminophen 500 mg tablet 1,000 mg PO Q6H PRN Pain 08/31/22 12/06/24 History (Tylenol Extra Strength) cholecalciferol (vitamin D3) 125 125 mcg PO QAM 08/31/22 12/06/24 History mcg (5,000 unit) tablet (Vitamin D3) Lift Chair #1 ea 09/27/22 11/23/24 Rx bromelains 500 mg tablet 500 mg PO DAILY 03/10/24 12/06/24 History apixaban 2.5 mg tablet (Eliquis) 2.5 mg PO BID 06/01/24 12/06/24 History lisinopril 5 mg tablet 5 mg PO DAILY #90 tabs 10/06/24 12/06/24 Rx gentamicin 0.1 % topical ointment 1 applic topical UD 12/06/24 12/06/24 History hydrochlorothiazide 12.5 mg tablet 12.5 mg PO UD 12/06/24 12/06/24 History metoprolol succinate 50 mg 50 mg PO QAM 12/06/24 12/06/24 History tablet,extended release 24 hr (Toprol XL) Past Med/Surg History Problem List Kidney stone on right side (Acute) Respiratory failure (Acute) Unresponsive (Acute) Encephalopathy acute Venous stasis dermatitis (Acute) PJ (acute kidney injury) (Acute) Cellulitis (Acute) 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 Venous ulcer of right leg (Acute) Venous ulcer of left leg Acute kidney injury CKD (chronic kidney disease) stage 4, GFR 15-29 ml/min Encounter for pre-operative examination Fatigue Left arm swelling Open wound of ankle (Acute) Gastritis Gastric ulcer Hemorrhagic disorder due to extrinsic circulating anticoagulants Thrombocytopenia Hemorrhagic shock Acute blood loss anemia Hypotension (Acute) Acute GI bleeding (Acute) Anemia (Acute) Generalized weakness (Acute) Traumatic open wound of great toe with delayed healing Traumatic open wound of right lower leg (Acute) Traumatic open wound of left lower leg (Acute) Mass of scalp Pressure ulcer of dorsum of left foot, stage 3 (Acute) Pressure ulcer of toe of right foot, stage 3 (Acute) Pressure ulcer of right foot, stage 2 Pressure ulcer of left foot, stage 2 Degenerative arthritis of knee, bilateral Chronic renal failure, stage 3a Pressure sore on buttocks Cellulitis of left leg (Acute) Vitamin D deficiency (Acute) Hypertension (Acute) Atrial fibrillation (Acute) Arthritis (Acute) Non-pressure chronic ulcer of calf, 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) Edema of left lower extremity (Chronic) Chronic venous insufficiency (Chronic) Cellulitis of right lower extremity (Acute) Pacemaker (Acute) Medical History History of blood transfusion 11/2023 Osteomyelitis of toe of right foot hx / sx intervention Gastric ulcer reason for upcoming procedure / follow up History of recent hospitalization 11/2023 [facility] - stomach ulcer 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 dressing changes at wound clinich on Tuesdays and home nursing on Fridays History of basal cell carcinoma HTN (hypertension) Pacemaker placed 2006 - shauna -- [employer] -- last check 10/2022 - upcoming 01/16/24 History of myocardial infarction 1990s Slow to wake up after anesthesia denies trouble coming out of /pt reports "just no strong dosages, minimal always works" Osteoarthritis Osteopenia Multinodular goiter denies Hyperthyroidism hx Atrial fibrillation, chronic on warfarin. Follows with René Block PA-C. no hx cardioversion. Chronic venous insufficiency Surgical History History of endoscopy 11/2023 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 H/O excision of mass (01/29/23) Scalp Mass Excision(Right) - Red Farfan MD, FACS Status post ablation of incompetent vein using laser hx 2 ablations History of excision of lesion (01/23/11) Wide excision lesion left lower extremity with full thickness skin graft. Dr. Farfan S/P Mohs surgery for basal cell carcinoma History of tonsillectomy and adenoidectomy History of arthroscopy of knee History of cataract surgery Family History Mother Cardiac disorder Father Hypertension Denies family history of Ovarian cancer Prostate cancer Myocardial infarction Breast cancer Colorectal cancer Social History Smoking Status: Never smoker Tobacco Type: Cigarettes Second Hand Exposure: No; Do You Dip or Chew Tobacco: No; Hx Alcohol Use: No Hx Substance Use: No Preferred Language: Armenian Communication Ability: Effective Visual Impairment: No Limitations Hearing Ability: Normal Healthcare Interpreter Required: No Beliefs That Will Affect Care: None marital status: / Current Living Situation: Alone Current Living Situation Comment: live by myself but son has stayed with me since d/c from hospital 11/2023 current occupational status: employed current occupation: [employer] STAFF How many Children do You have: 3 Feels Safe at Home: Yes Childhood Exposure to Second-Hand Smoke: No Diet: regular Diet Comment: regular caffeine: No during the past year weight has: remained stable Dental Care, Regularly: Yes Physical Activity Frequency: Does not Exercise Seatbelt Use: always Sunscreen Use: Yes Assistive Devices: Cane, Denture - Upper, Walker and Other Review of Systems 2 Review of Systems: Unable to obtain from pt as she is intubated and sedated on mechanical ventilation Physical Exam 2 Physical Exam: GENERAL: 89 yo elderly overweight WF. Intubated and sedated. LUNGS: On mechanical vent. Clear in upper airways. Unable to fully examine all lung vicente d/t positioning. CARDIOVASCULAR: Regular rate and rhythm. ABDOMEN: Soft, non-tender and non-distended. No palpable masses. Bowel sounds normoactive x 4 quad. EXTREMITIES: Chronic venous stasis with trace b/l LE edema. Peripheral pulses +2/4. NEUROLOGIC: Sedated PSYCHIATRIC: Cooperative. Appropriate mood and affect. SKIN: Warm, dry, intact. No rashes or lesions. Results & Data Results & Data Vital Signs (Past 12 Hours) Vital Signs Temp Pulse Resp BP Pulse Ox O2 Del Method 12/06/24 13:32 32.7 C L 111/65 12/06/24 13:32 32.7 C L 12/06/24 13:30 60 18 97 12/06/24 13:30 112/67 12/06/24 13:30 112/67 12/06/24 13:28 112/65 12/06/24 13:28 112/65 12/06/24 13:22 137/68 12/06/24 13:21 60 18 98 12/06/24 13:20 120/69 12/06/24 13:20 120/69 12/06/24 13:18 116/68 12/06/24 13:18 60 18 98 12/06/24 13:15 59 L 19 97 12/06/24 13:14 122/71 12/06/24 13:12 124/72 12/06/24 13:10 123/75 12/06/24 13:10 123/75 12/06/24 13:09 60 18 98 12/06/24 13:08 101/78 12/06/24 13:06 60 18 96 12/06/24 13:06 121/68 12/06/24 13:06 121/68 12/06/24 13:03 61 18 97 12/06/24 13:02 128/73 12/06/24 13:02 128/73 12/06/24 12:57 60 18 98 12/06/24 12:56 120/72 12/06/24 12:54 126/79 12/06/24 12:52 127/71 12/06/24 12:44 165/86 H 12/06/24 12:38 177/91 H 12/06/24 12:30 174/90 H 12/06/24 12:30 60 18 98 12/06/24 12:28 173/92 H Mechanical Vent 12/06/24 12:27 60 18 99 12/06/24 12:26 163/84 H 12/06/24 12:26 163/84 H 12/06/24 12:22 121/70 12/06/24 12:21 61 18 99 12/06/24 12:20 143/73 H 12/06/24 12:18 180/92 H 12/06/24 12:12 183/92 H 12/06/24 12:06 187/92 H 12/06/24 12:06 60 18 98 Mechanical Vent 12/06/24 12:04 187/95 H 12/06/24 12:01 32.3 C L 12/06/24 12:00 185/95 H 12/06/24 11:52 117/66 12/06/24 11:48 104/65 12/06/24 11:46 113/70 12/06/24 11:20 108/71 12/06/24 11:20 108/71 12/06/24 11:18 60 18 92 12/06/24 11:18 129/77 12/06/24 11:16 131/79 12/06/24 11:11 143/84 H 12/06/24 11:02 50/37 L 12/06/24 11:02 50/37 L 12/06/24 11:00 78 18 97 12/06/24 10:56 181/86 H 12/06/24 10:55 79 12/06/24 10:54 218/107 H 12/06/24 10:54 80 19 93 12/06/24 10:54 60 18 Mechanical Vent 12/06/24 10:45 121/79 12/06/24 10:32 Mechanical Vent 12/06/24 10:32 32.3 C L 12/06/24 10:32 75 18 121/79 97 Non-rebreather Laboratory Results 12/06/24 10:49 12/06/24 12:[address] 12/06/24 10:54 CT OF THE CHEST WITHOUT IV CONTRAST CLINICAL HISTORY: Respiratory failure. COMPARISON STUDY: Chest radiograph December 01, 2023. Chest radiograph performed earlier today. TECHNIQUE: Axial images of the chest were obtained without IV contrast. Images were reviewed in the axial, sagittal, and coronal planes. IV contrast was not administered for this examination. Automated exposure control was utilized for the study. A dose lowering technique was utilized adhering to the principles of ALARA. FINDINGS: The endotracheal tube is well positioned, 2.3 cm above the rylie. A left subclavian pacer is in place. Multifocal venous gas is related to the IV. Moderate to marked cardiomegaly is noted. There is moderate coronary artery calcification. No pericardial effusion is present. A left lobe goiter measures 6.5 x 5.8 cm. This has mildly increased in size since CT of May 28, 2007. There is rightward displacement of trachea without compression. Lungs are suboptimally assessed due to respiratory motion. Lower lobe linear densities and groundglass opacities favor atelectasis. There are are mild secretions within the airways. There is no consolidation to suggest pneumonia. Mild interlobular septal thickening is present. There is no pneumothorax or pleural effusion. Extensive anterior osteophytosis of the thoracic spine is incidentally noted. A right lower cervical nodule is partially imaged on this exam. This measures at least 1.9 cm. This favors an enlarged lymph node. Abdomen and pelvis CT will be reported separately. Tip of nasogastric tube is within the body of the stomach. IMPRESSION: 1. Well-positioned endotracheal and nasogastric tubes. 2. Cardiomegaly. Mild interstitial thickening. This favors mild pulmonary edema. 3. Lower lung densities and groundglass opacities which favor atelectasis. No definite consolidation to suggest pneumonia. Mild secretions within the airways. 4. 1.9 cm right lower neck nodule, partially imaged on this exam. This favors an enlarged lymph node. Outpatient CT of the neck with contrast is recommended. 5. Left lobe thyroid goiter. ACT 112: Negative or not required by law. Electronically signed by: Coleman Gonzalez M.D. 12/06/2024 11:56 AM Chest X-Ray 12/06/24 10:54 XR chest 1V portable CLINICAL HISTORY: weakness postintubation COMPARISON STUDY: 08/31/2022 FINDINGS: Single view chest demonstrates an endotracheal tube tip 2.5 cm above the rylie. Bibasilar reticular densities are once again noted to most likely representing a component of fibrosis. An early superimposed left basilar infiltrate cannot be excluded. Dual-lead pacemaker electrode leads are in place. The nasogastric tube tip identified consistent with a mid gastric tip placement. IMPRESSION: Endotracheal tube tip 2.5 cm above the rylie. ACT 112: Negative or not required by law. Electronically signed by: Jana Schumacher M.D. 12/06/2024 11:[address] 12/06/24 10:54 CT OF THE HEAD WITHOUT CONTRAST CLINICAL HISTORY: Altered mental status. COMPARISON STUDY: MRI of the brain April 30, 2007. Head CT September 08, 2019. TECHNIQUE: Helical axial images of the head were obtained without IV contrast. Automated exposure control was utilized for the study. A dose lowering technique was utilized adhering to the principles of ALARA. FINDINGS: No acute intracranial hemorrhage, midline shift or mass effect is present. The ventricular system is stable. The basal cisterns are patent. No extra-axial collections are present. There are no findings to suggest acute dural sinus thrombosis or acute territorial infarct. No significant calvarial abnormalities are present. Visualized portions of the sinuses and mastoid air cells are clear. Secretions within the nasopharynx are related to intubation. Multifocal venous gas is incidentally noted. This is related to IV placement. IMPRESSION: No acute intracranial findings. ACT 112: Negative or not required by law. Electronically signed by: Coleman Gonzalez M.D. 12/06/2024 11:45 AM Abdomen/Pelvis CT 12/06/24 10:[address] WITHOUT CONTRAST CT DOSE: 2663.67 mGy.cm HISTORY: eweak, resp failure, hx gibleed TECHNIQUE: Multiaxial CT images of the abdomen and pelvis were performed without contrast. Sagittal and coronal reconstructions were done. A dose lowering technique was utilized adhering to the principles of ALARA. COMPARISON STUDY: 12/01/2023 FINDINGS: Since the prior examination, the heart size is increased. Bibasilar linear opacities have developed in the dependent portions of both lower lobes. Mild generalized haziness in the subcutaneous fat has developed as well as haziness at the root of the mesentery and in the peripancreatic fat. There is no ascites. Since the prior study, the right renal calculi have moved into the proximal right ureter causing moderate right pyelocaliectasis. The liver and spleen demonstrate no focal lesions. No adrenal gland abnormality identified. There is no aortic aneurysm or periaortic adenopathy. There is no bowel obstruction or free air. There is no evidence of colitis or diverticulitis. Numerous colonic diverticuli are once again noted. In the pelvis, there is a small fat-containing umbilical hernia. The uterus is midline. Is a Meza catheter in a collapsed bladder. Sigmoid diverticula are noted. There is no fluid or blood in the cul-de-sac. IMPRESSION: Right renal stones that were previously in the renal pelvis have moved into the proximal right ureter and are associated with moderate proximal right hydronephrosis. Mild haziness in the subcutaneous fat and root of the mesentery in conjunction with mild cardiomegaly raise the possibility of CHF versus fluid overload. Haziness in the peripancreatic fat. Cannot exclude acute pancreatitis. Bibasilar airspace opacities most likely dependent discoid atelectasis. Pulmonary edema or developing infiltrate cannot be excluded. No intra-abdominal hemorrhage identified. ACT 112: Negative or not required by law. The above report was generated using voice recognition software. It may contain grammatical, syntax or spelling errors. Electronically signed by: Jana Schumacher M.D. 12/06/2024 12:10 PM Code Status & VTE Plan Code Status DNR/DNI d/w family at bedside Supervising Physician Co-Signing Physician Notes Patient seen and examined, chart reviewed, case discussed with Joyce Bishop PA-C and I agree with the assessment and plan as above except as otherwise noted Labs and images reviewed 89-year-old female with history of atrial fibrillation, pacemaker placement, CKD, gastric ulcers who presents with approximately right ureteral stone with severe hydronephrosis and perinephric stranding, presented to the ER unresponsive, with respiratory compromise requiring intubation, and hypothermia requiring Sujey hugger. . Patient was emergently intubated in the ER for respiratory compromise subsequently received epinephrine for hypotension. Started on Levophed running at 0.06 at time of attending assessment, continued on cefepime for complicated UTI. Patient be taken to the OR for stent placement for mid to proximal stone with severe hydro and PJ. Will be transferred in the ICU subsequently for further care and recovery. History limited by ETT. Good air movement bilaterally. Appears ill, on ventilator. Abdomen is soft. At time of assessment cap refill of extremities is less than 2 seconds. Agree with assessment management above PG Care Time/CCT Total # of Minutes Spent Total Time Spent with Patient: Total time spent is greater than 50% in coordination of care (as documented) at patient's floor/unit and/or counseling patient: 85 minutes Coding Level of Care Code 00705 INT INP/OBS CARE 3MIN Diagnoses Respiratory failure J96.00 Chronicity: acute Respiratory failure complication: unspecified whether with hypoxia or hypercapnia Encephalopathy acute G93.40 Kidney stone on right side N20.0 Thrombocytopenia D69.6 (1) Respiratory failure Chronicity: acute Respiratory failure complication: unspecified whether with hypoxia or hypercapnia Qualified Code(s): J96.00 - Acute respiratory failure, unspecified whether with hypoxia or hypercapnia
--- NOTE | 2024-12-06 15:06 | Operative Report ---
PG Post Operative Report Pre & Post Diagnosis Operation Date: 12/06/24 09:55 Pre-Op Diagnosis: Obstructing right ureteral stone Post-Op Diagnosis: Obstructing right ureteral stone I identified the patient and participated in the time-out.: Yes Procedure Operation Date: 12/06/24 09:55 Actual Procedures p Cystoscopy with Right Ureteroscopy, Laser Lithotripsy, Stone Extraction, Retrograde Pyelogram, Urine Aspiration, Dilation of Ureter, and Stent Placement(Right) - Chalino Cruz, Surgeon Chalino Cruz, II, DO Editorial Director None Estimated Blood Loss 1 Findings Consistent with Post-Op Diagnosis Severely impacted stones at the Mid ureter with Steinstrasse of numerous stones proximal to the leading stone. Unable to bypass with wire due to Steinstrasse. Ureteroscopy with placement of wire. Leading Stone destroyed to dust and small fragments and larger fragments removed. Cloudy urine from right renal pelvis. 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 Specimens Stone Fragments - Right Ureter Urine Right Renal Pelvis Drains 6 Fr Multilength 18 Fr Silicone Catheter Anesthesia Type General Complications none Disposition Disposition: Recovery Room Indications Patient with Severe sepsis and significant obstruction secondary to bothersome stones. Risks and benefits discussed at length. Description of Procedure Patient was consented and brought back to the operating room. Patient was septic with obstructing stones. Was undergoing volume support and resuscitation including pressors secondary to severe hypotension and acute illness. Patient was transferred directly from the ER under anesthesia in the supine position and moved to the dorsal lithotomy position. Patient was prepped and draped in the regular sterile fashion. A time out was completed identifying the correct patient and procedure. A 30degree Cystoscope was placed into the bladder and the entire bladder was examined. The UO's were identified. The UO was cannulized with a catheter and a retrograde pyelogram was completed. The ureter was found to be severely obstructed in the mid ureter. Contrast was not passing past this area. An attempt to pass the wall either also failed to advance the wire much past the area of severe obstruction. Appeared to have numerous stones piled up in the mid ureter going back into the proximal ureter. A severe obstruction was noted. Little to no contrast was bypassing the area. A catheter was then advanced to the area right before the stone. Another attempt to pass the wire also was unable to move the wire forward. The retrograde pyelogram showed severe obstruction. The first wire was able to be placed just distal to the severe obstruction. A second wire was then placed. A ureteral access sheath and second safety wire was placed. The flexible ureteroscope was taken into the ureter. The scope was able to advance right to the area of severe obstruction. A significant stricture was noted with a very large obstructing stone and edematous area of inflammation throughout the ureter. Under direct visualization a wire was able to be placed past the severe obstruction and appeared to be going into the renal pelvis. Neither the scope Nor the 5 Hebrew catheter however past this area and the stone was found to be severely impacted. A laser fiber was selected and the stones were pulverized to dust and small fragments. This opened the channel which allowed the scope to then advanced past the innumerable stones in the proximal ureter. The scope was able to advance all the way to the renal pelvis. A urine culture was aspirated from the renal pelvis. A number of stone pieces started to drain from the ureteral access sheath as soon as the larger leading stone was removed. Larger fragments were grasped and removed and sent for analysis. Due to the patient's severe sepsis and major illness it was decided not to treat all of the visible stones the only stones that were removed were ones that were causing severe obstruction and were unable to be but otherwise bypassed. A number of large fragments were displaced back up into the renal pelvis. The entire area was once again examined. The scope was slowly removed with the wire left in place. Contrast was placed through the scope for a pyelogram to assist in stent placement. The entire ureter was examined as the scope was slowly removed. No obstructions or other areas of concern were noted. With the wire in place, a 6 Fr Double J stent was placed. It was confirmed with fluoroscopy. With the stent in place, the bladder was emptied. The scope was removed. A 18 Hebrew silicone catheter was placed. The patient was cleaned. Anesthesia was maintained and the patient was transferred urgently from the OR to the intensive care unit for continued critical management. Patient had tolerated the procedure well and had been in a stable condition natty godfrey tolerated the procedure well with no complications from the procedure. I was present and participated in all aspects of the procedure. The patient will be monitored in the intensive care unit for close monitoring with acute illness. Will undergo resuscitation and support. Will need to maintain broad-spectrum antibiotics will await patient's recovery and decide on neck steps for stone management. Will plan to maintain stent and catheter I attest to the content of the Intraoperative Record and any orders documented therein. Any exceptions are noted below.
--- NOTE | 2024-12-06 15:11 | Fluoroscopy Report ---
FL retrograde includes kub CLINICAL HISTORY: ADD ON RIGHT STENT COMPARISON STUDY: CT of the abdomen and pelvis performed earlier today. FLUOROSCOPY TIME: 46 seconds. Ka,r: 14.07 mGy FLUOROSCOPIC IMAGES: 5 FINDINGS: Fluoroscopy was provided during right retrograde pyelogram, lithotripsy, stone extraction, ureteral dilatation and right ureteral stent placement. There may be a small amount of extraluminal c ontrast adjacent to the mid ureter. IMPRESSION: Fluoroscopy provided during right retrograde pyelogram, lithotripsy, stone extraction, u reteral dilatation and right ureteral stent placement. ACT 112: Negative or not required by law. Electronically signed by: Coleman Gonzalez M.D. 12/06/2024 3:10 PM
[2024-12-06] MEDS: DIATRIZOATE MEGLUMINE 30% 100ML VIAL INSTIL ONE (15:14)
--- NOTE | 2024-12-06 16:44 | Anesthesiology Progress Note ---
Date of Service December 06, 2024 Anesthesia Post Procedure Vital Signs Vital Signs: Temp Pulse Pulse Resp BP BP Pulse Ox 12/06/24 15:29 32.7 C L 60 12 108/60 100 12/06/24 15:24 60 15 100 12/06/24 15:19 32.7 C L 60 12 109/63 100 12/06/24 15:09 32.8 C L 60 12 110/66 99 12/06/24 14:15 12/06/24 14:11 108/64 12/06/24 14:10 111/64 12/06/24 14:06 60 10 L 98 12/06/24 14:06 114/68 12/06/24 14:04 115/65 12/06/24 14:03 33.2 C L 12/06/24 14:02 115/69 12/06/24 13:58 115/68 12/06/24 13:58 115/68 12/06/24 13:54 108/65 12/06/24 13:51 60 18 97 12/06/24 13:50 60 18 116/68 97 12/06/24 13:46 115/67 12/06/24 13:44 115/69 12/06/24 13:42 117/68 12/06/24 13:40 123/71 12/06/24 13:38 60 14 114/64 98 12/06/24 13:36 60 18 113/67 98 12/06/24 13:34 112/68 12/06/24 13:32 32.7 C L 111/65 12/06/24 13:32 32.7 C L 12/06/24 13:30 60 18 97 12/06/24 13:30 112/67 12/06/24 13:30 112/67 12/06/24 13:28 112/65 12/06/24 13:28 112/65 12/06/24 13:22 137/68 12/06/24 13:21 60 18 98 12/06/24 13:20 120/69 12/06/24 13:20 120/69 12/06/24 13:18 116/68 12/06/24 13:18 60 18 98 12/06/24 13:15 59 L 19 97 12/06/24 13:14 122/71 12/06/24 13:12 124/72 12/06/24 13:10 123/75 12/06/24 13:10 123/75 12/06/24 13:09 60 18 98 12/06/24 13:08 101/78 12/06/24 13:06 60 18 96 12/06/24 13:06 121/68 12/06/24 13:06 121/68 12/06/24 13:03 61 18 97 12/06/24 13:02 128/73 12/06/24 13:02 128/73 12/06/24 12:57 60 18 98 12/06/24 12:56 120/72 12/06/24 12:54 126/79 12/06/24 12:52 127/71 12/06/24 12:44 165/86 H 12/06/24 12:38 177/91 H 12/06/24 12:30 174/90 H 12/06/24 12:30 60 18 98 12/06/24 12:28 173/92 H 12/06/24 12:27 60 18 99 12/06/24 12:26 163/84 H 12/06/24 12:26 163/84 H 12/06/24 12:22 121/70 12/06/24 12:21 61 18 99 12/06/24 12:20 143/73 H 12/06/24 12:18 180/92 H 12/06/24 12:12 183/92 H 12/06/24 12:06 187/92 H 12/06/24 12:06 60 18 98 12/06/24 12:04 187/95 H 12/06/24 12:01 32.3 C L 12/06/24 12:00 185/95 H 12/06/24 11:52 117/66 12/06/24 11:48 104/65 12/06/24 11:47 65 18 98 12/06/24 11:46 113/70 12/06/24 11:20 108/71 12/06/24 11:20 108/71 12/06/24 11:18 60 18 92 12/06/24 11:18 129/77 12/06/24 11:16 12/06/24 11:16 131/79 12/06/24 11:11 143/84 H 12/06/24 11:02 50/37 L 12/06/24 11:02 50/37 L 12/06/24 11:00 78 18 97 12/06/24 10:56 181/86 H 12/06/24 10:55 79 12/06/24 10:54 218/107 H 12/06/24 10:54 80 19 93 12/06/24 10:54 60 18 12/06/24 10:53 79 18 99 12/06/24 10:45 121/79 12/06/24 10:32 12/06/24 10:32 32.3 C L 12/06/24 10:32 12/06/24 10:32 75 18 121/79 97 O2 Del Method FiO2 12/06/24 15:29 Mechanical Vent 12/06/24 15:24 12/06/24 15:19 Mechanical Vent 12/06/24 15:09 Mechanical Vent 12/06/24 14:15 Mechanical Vent 12/06/24 14:11 12/06/24 14:10 12/06/24 14:06 12/06/24 14:06 12/06/24 14:04 12/06/24 14:03 12/06/24 14:02 12/06/24 13:58 12/06/24 13:58 12/06/24 13:54 12/06/24 13:51 12/06/24 13:50 Mechanical Vent 12/06/24 13:46 12/06/24 13:44 12/06/24 13:42 12/06/24 13:40 12/06/24 13:38 12/06/24 13:36 12/06/24 13:34 12/06/24 13:32 12/06/24 13:32 12/06/24 13:30 12/06/24 13:30 12/06/24 13:30 12/06/24 13:28 12/06/24 13:28 12/06/24 13:22 12/06/24 13:21 12/06/24 13:20 12/06/24 13:20 12/06/24 13:18 12/06/24 13:18 12/06/24 13:15 12/06/24 13:14 12/06/24 13:12 12/06/24 13:10 12/06/24 13:10 12/06/24 13:09 12/06/24 13:08 12/06/24 13:06 12/06/24 13:06 12/06/24 13:06 12/06/24 13:03 12/06/24 13:02 12/06/24 13:02 12/06/24 12:57 12/06/24 12:56 12/06/24 12:54 12/06/24 12:52 12/06/24 12:44 12/06/24 12:38 12/06/24 12:30 12/06/24 12:30 12/06/24 12:28 Mechanical Vent 12/06/24 12:27 12/06/24 12:26 12/06/24 12:26 12/06/24 12:22 12/06/24 12:21 12/06/24 12:20 12/06/24 12:18 12/06/24 12:12 12/06/24 12:06 12/06/24 12:06 Mechanical Vent 12/06/24 12:04 12/06/24 12:01 12/06/24 12:00 12/06/24 11:52 12/06/24 11:48 12/06/24 11:47 40 12/06/24 11:46 12/06/24 11:20 12/06/24 11:20 12/06/24 11:18 12/06/24 11:18 12/06/24 11:16 50 12/06/24 11:16 12/06/24 11:11 12/06/24 11:02 12/06/24 11:02 12/06/24 11:00 12/06/24 10:56 12/06/24 10:55 12/06/24 10:54 12/06/24 10:54 12/06/24 10:54 Mechanical Vent 12/06/24 10:53 100 12/06/24 10:45 12/06/24 10:32 Mechanical Vent 12/06/24 10:32 12/06/24 10:32 Mechanical Vent 12/06/24 10:32 Non-rebreather Transfer of Care Handoff Completed per policy Notes Patient Amnestic to Procedure: Yes Nausea / Vomiting: adequately controlled Pain: adequately controlled Airway Patency, RR, SpO2: see Notes below BP & HR: stable & adequate Hydration State: stable & adequate Anesthetic Complications: no major complications apparent Notes: Patient came to OR already intubated. Case went without incident and patient brought to ICU intubated and sedated. Respiratory on hand and patient connected to ventilator.
[2024-12-06] MEDS: ICU Protocol for HYPERglycemia SCH (17:47)
[2024-12-06] MEDS: PROPOFOL BOLUS FROM BAG IV PRN (17:57)
[2024-12-07] MEDS: CEFEPIME 1000MG 1,000 MG/10 ML SYR IV SCH (00:04)
[2024-12-07 05:12] LABS: Eosinophils # (auto) 0.04 K/uL (0.00-0.50); Eosinophils % (auto) 0.7 %; Hematocrit (blood only) 30.2 % (37.0-47.0); Hemoglobin 9.9 g/dl (12.0-16.0); Immature Granulocytes # (auto) 0.03 K/uL (0.01-0.20); Immature Granulocytes % (auto) 0.5 %; Lymphocytes # (auto) 0.38 K/uL (1.20-3.40); Lymphocytes % (auto) 6.5 %; Mean Corpuscular Hemoglobin 29.9 pg (25.0-34.0); Mean Corpuscular Hgb Conc 32.8 g/dL (32.0-36.0); Mean Corpuscular Volume 91.2 fL (80.0-100.0); Mean Platelet Volume 12.9 fL (9.4-12.4); Monocytes # (auto) 1.06 K/uL (0.11-0.59); Monocytes % (auto) 18.1 %; Neutrophils # (auto) 4.34 K/uL (1.40-6.50); Neutrophils % (auto) 74.2 %; Nucleated RBC # (auto) 0.03 K/uL (0.00-0.12); Nucleated RBC % (auto) 0.5 %; Platelet Count 50 K/uL (130-400); RDW Coefficient of Variation 15.6 % (11.5-14.5); RDW Standard Deviation 51.4 fL (36.4-46.3); Red Blood Count 3.31 M/uL (4.20-5.40); White Blood Count 5.85 K/ul (4.8-10.8)
[2024-12-07 05:33] LABS: BUN Creatinine Ratio 35.1 (10-20); Calcium 7.7 mg/dl (8.6-10.3); Creatinine Clr Calc Pharmacy 24.8 ml/min; Magnesium 1.7 mg/dl (1.7-2.4); Potassium 4.2 mmol/L (3.5-5.1)
[2024-12-07] MEDS: MAGNESIUM SULFATE / D5W 1 GM/100 ML BAG IV SCH (05:43)
--- NOTE | 2024-12-07 06:29 | Communication Note ---
Date of Service: December 07, 2024
--- NOTE | 2024-12-07 08:20 | Urology Progress Note ---
Date of Service December 07, 2024 Assessment & Plan (1) Right ureteral calculus: Plan: POD #1 s/p emergent cystoscopy and right ureteral stent Patient remains critically ill in ICU, mechanically ventilated, on Levophed Hypothermia resolved Labs reviewedcreatinine 1.68, WBC 5.5, hemoglobin 9.9 Urine and blood cultures are pending, continue with broad-spectrum antibiotics and narrow per sensitivity data when available Ureteral stent now in position for adequate source control, no additional intervention at this time Stone treatment to be discussed at a later date after treatment of infection/appropriate recovery Capone patent and draining light steele red urine Maintain Capone catheter, okay to gently hand irrigate catheter if it becomes obstructed Continue medical management per hospital and steel heater teams will follow peripherally, please contact our service with any additional questions or concerns Admission and Anticipated Discharge Date Admission Date: December 06, 2024 Subjective Patient seen and examined at bedside this morning, RN in room. Patient s/p emergent right ureteral stent yesterday. Remains critically ill in ICU. Hypothermia resolved. Patient mechanically ventilated. On Levophed. Review of Systems Review of Systems: Unobtainable due to cognitive status Physical Exam Constitutional: + ill appearing and + mechanically venti lated Respiratory: mechanically ventilated Cardiovascular: Rate/Rhythm: regular rate Gastrointestinal (Abdomen): Inspection/Auscultation: abdomen normal to inspection Neurologic: sedated Genitourinary: Capone draining light steele red Results & Data Vital Signs (Past 12 Hours) Vital Signs Temp Pulse Resp BP Pulse Ox FiO2 12/07/24 08:00 60 12/07/24 07:18 65 14 97 25 12/07/24 06:33 36.9 C 60 15 98 12/07/24 06:30 123/53 L 12/07/24 06:30 123/53 L 12/07/24 06:15 127/58 L 12/07/24 06:15 127/58 L 12/07/24 06:12 36.9 C 60 13 98 12/07/24 06:09 36.9 C 60 14 98 12/07/24 05:45 127/55 L 12/07/24 05:45 36.9 C 61 16 98 12/07/24 05:42 36.9 C 62 19 98 12/07/24 05:30 121/54 L 12/07/24 05:30 121/54 L 12/07/24 05:30 121/54 L 12/07/24 05:27 37.0 C 62 15 98 12/07/24 05:15 37.0 C 62 17 98 12/07/24 05:15 123/58 L 12/07/24 05:15 123/58 L 12/07/24 05:15 123/58 L 12/07/24 04:51 37.0 C 61 15 99 12/07/24 04:48 37.0 C 62 15 99 12/07/24 04:45 124/56 L 12/07/24 04:45 124/56 L 12/07/24 04:45 124/56 L 12/07/24 04:24 37.1 C 61 16 99 12/07/24 04:21 37.1 C 60 15 99 12/07/24 04:15 124/54 L 12/07/24 04:15 124/54 L 12/07/24 04:15 37.1 C 61 15 99 12/07/24 04:00 25 12/07/24 04:00 37.1 C 61 19 99 12/07/24 04:00 115/55 L 12/07/24 04:00 115/55 L 12/07/24 03:45 125/51 L 12/07/24 03:45 125/51 L 12/07/24 03:45 125/51 L 12/07/24 03:45 37.1 C 61 18 99 12/07/24 03:30 122/63 12/07/24 03:30 37.1 C 68 16 99 12/07/24 03:27 61 15 99 25 12/07/24 03:18 37.1 C 62 17 98 12/07/24 03:15 118/54 L 12/07/24 03:15 118/54 L 12/07/24 03:15 118/54 L 12/07/24 02:54 37.1 C 60 17 98 12/07/24 02:45 124/52 L 12/07/24 02:45 37.1 C 63 16 99 12/07/24 02:42 37.1 C 83 19 99 12/07/24 02:36 37.1 C 60 18 99 12/07/24 02:30 120/53 L 12/07/24 02:30 120/53 L 12/07/24 02:15 115/51 L 12/07/24 02:15 115/51 L 12/07/24 02:15 115/51 L 12/07/24 01:57 37.2 C 60 13 99 12/07/24 01:51 37.2 C 60 14 98 12/07/24 01:42 37.2 C 61 16 99 12/07/24 01:30 115/53 L 12/07/24 01:30 115/53 L 12/07/24 01:30 115/53 L 12/07/24 01:18 37.2 C 60 19 99 12/07/24 01:15 115/50 L 12/07/24 01:15 115/50 L 12/07/24 01:15 115/50 L 12/07/24 01:12 37.2 C 59 L 20 99 12/07/24 01:00 111/50 L 12/07/24 01:00 37.3 C 60 23 98 12/07/24 00:45 110/51 L 12/07/24 00:42 37.3 C 60 20 99 12/07/24 00:33 37.3 C 60 22 99 12/07/24 00:30 106/48 L 12/07/24 00:26 61 16 99 25 12/07/24 00:00 25 12/06/24 22:40 60 17 98 25 PG Care Time/CCT Total # of Minutes Spent Total Time Spent with Patient: Total time spent is greater than 50% in coordination of care (as documented) at patient's floor/unit and/or counseling patient: Coding Level of Care Code 40694 SUB INP/OBS CARE 11/13MIN Diagnoses Right ureteral calculus N20.1
[2024-12-07] MEDS ORDERED: CEFEPIME 2000MG 2,000 MG/20 ML SYR IV SCH (09:00)
--- NOTE | 2024-12-07 09:42 | Critical Care Progress Note ---
Date of Service December 07, 2024 Assessment & Plan (1) PJ (acute kidney injury): Plan: Reason Critically Ill: 81-year-old female with presumptive sepsis/pyelonephritis requiring vasoactive medication administration PLAN: Neuro: Acute encephalopathy: Suspect metabolic -Improved Resp: Respiratory insufficiency: Hypercapnic respiratory failure -On minimal vent settings had discussion with daughter at bedside will proceed with extubation CV: Atrial fibrillation Pacemaker dependence Hypotension -Wean vasoactive's as tolerated Fluids/Renal: Acute kidney injury on chronic kidney disease stage III: Improved (near presumptive baseline) Right-sided hydronephrosis, postop day 1From right ureteral stent Nongap metabolic acidosis: Hyperchloremia ID: Sepsis: No leukocytosis; however, hypothermia and vasoactive dependence -Urology placed ureteral stent -Continue broad-spectrum antibiotics awaiting culture data GI/Nutrition: N.p.o. Heme: anemia: At baseline Thrombocytopenia: No obvious bleeding suspect related to underlying disease process Long-term systemic anticoagulation secondary to atrial fibrillation DVT prophylaxis: SCDs Endocrine: ICU hyperglycemia protocol -Adequate cortisol response Vascular access: Peripheral IV Code Status: DO NOT RESUSCITATE in event of cardiac arrest -Discussed with family at bedside and included patient in discussions would proceed with extubation and not reintubate in event of respiratory insufficiency. Family also reports that she had previously filled out a DO NOT RESUSCITATE order. At this point patient would not want to undergo procedures o r treatments which would prohibit her from returning to living semiindependently (she lives with a developmentally delayed son who she provides significant care for) Disposition: ICU (2) Stage 3b chronic kidney disease: (3) CKD (chronic kidney disease) stage 4, GFR 15-29 ml/min: (4) Atrial fibrillation: (5) Encephalopathy acute: Admission and Anticipated Discharge Date Admission Date: December 06, 2024 Supervising Physician Co-Signing Physician Notes I have personally spent 45 minutes of critical care time in the direct management of this patient. This is a life/limb threatening event. This includes time spent evaluating patient, direct bedside care, chart review, placing orders, interpretation of diagnostic studies, discussion with consultants, patient, and/or family members regarding treatment decisions, as well as other required patient management activities. This time is exclusive of all separately billable procedures, and teaching time and separate from and in addition to any other critical care service time. Subjective Overnight patient's temperature improved was able to discontinue rewarming measures, subsequently patient's core temp did decrease again and rewarming me asures reinitiated Physical Exam Physical Exam: General: Sedated. nontoxic. With decreasing sedation patient is able to follow simple two-step commands Skin: Warm, dry, Head: Atraumatic Ears, nose, mouth and throat: airway obscured by endotracheal tube Cardiovascular: Normal peripheral perfusion Respiratory: Ventilator settings reviewed Gastrointestinal: Non distended Musculoskeletal: No deformity Results & Data Results & Data Vital Signs (Past 12 Hours) Vital Signs Temp Pulse Resp BP Pulse Ox O2 Del Method FiO2 12/07/24 09:07 Mechanical Vent 12/07/24 08:00 25 12/07/24 08:00 60 12/07/24 07:18 65 14 97 12/07/24 06:33 36.9 C 60 15 98 12/07/24 06:30 123/53 L 12/07/24 06:30 123/53 L 12/07/24 06:15 127/58 L 12/07/24 06:15 127/58 L 12/07/24 06:12 36.9 C 60 13 98 12/07/24 06:09 36.9 C 60 14 98 12/07/24 05:45 127/55 L 12/07/24 05:45 36.9 C 61 16 98 12/07/24 05:42 36.9 C 62 19 98 12/07/24 05:30 121/54 L 12/07/24 05:30 121/54 L 12/07/24 05:30 121/54 L 12/07/24 05:27 37.0 C 62 15 98 12/07/24 05:15 37.0 C 62 17 98 12/07/24 05:15 123/58 L 12/07/24 05:15 123/58 L 12/07/24 05:15 123/58 L 12/07/24 04:51 37.0 C 61 15 99 12/07/24 04:48 37.0 C 62 15 99 12/07/24 04:45 124/56 L 12/07/24 04:45 124/56 L 12/07/24 04:45 124/56 L 12/07/24 04:24 37.1 C 61 16 99 12/07/24 04:21 37.1 C 60 15 99 12/07/24 04:15 124/54 L 12/07/24 04:15 124/54 L 12/07/24 04:15 37.1 C 61 15 99 12/07/24 04:00 25 12/07/24 04:00 37.1 C 61 19 99 12/07/24 04:00 115/55 L 12/07/24 04:00 115/55 L 12/07/24 03:45 125/51 L 12/07/24 03:45 125/51 L 12/07/24 03:45 125/51 L 12/07/24 03:45 37.1 C 61 18 99 12/07/24 03:30 122/63 12/07/24 03:30 37.1 C 68 16 99 12/07/24 03:27 61 15 99 25 12/07/24 03:18 37.1 C 62 17 98 12/07/24 03:15 118/54 L 12/07/24 03:15 118/54 L 12/07/24 03:15 118/54 L 12/07/24 02:54 37.1 C 60 17 98 12/07/24 02:45 124/52 L 12/07/24 02:45 37.1 C 63 16 99 12/07/24 02:42 37.1 C 83 19 99 12/07/24 02:36 37.1 C 60 18 99 12/07/24 02:30 120/53 L 12/07/24 02:30 120/53 L 12/07/24 02:15 115/51 L 12/07/24 02:15 115/51 L 12/07/24 02:15 115/51 L 12/07/24 01:57 37.2 C 60 13 99 12/07/24 01:51 37.2 C 60 14 98 12/07/24 01:42 37.2 C 61 16 99 12/07/24 01:30 115/53 L 12/07/24 01:30 115/53 L 12/07/24 01:30 115/53 L 12/07/24 01:18 37.2 C 60 19 99 12/07/24 01:15 115/50 L 12/07/24 01:15 115/50 L 12/07/24 01:15 115/50 L 12/07/24 01:12 37.2 C 59 L 20 99 12/07/24 01:00 111/50 L 12/07/24 01:00 37.3 C 60 23 98 12/07/24 00:45 110/51 L 12/07/24 00:42 37.3 C 60 20 99 12/07/24 00:33 37.3 C 60 22 99 12/07/24 00:30 106/48 L 12/07/24 00:26 61 16 99 25 12/07/24 00:00 25 12/06/24 22:40 60 17 98 25 Critical Care Results & Data Vital Signs (Past 12 Hours) Vital Signs Temp Pulse Resp BP Pulse Ox O2 Del Method O2 Flow Rate 12/07/24 12:59 81 12/07/24 12:45 119/60 97 Oxymask 2 12/07/24 12:39 37.2 C 91 H 25 H 96 Oxymask 4 12/07/24 12:30 124/67 12/07/24 12:30 37.2 C 98 H 28 H 97 12/07/24 12:24 105/61 12/07/24 12:24 105/61 12/07/24 12:15 76/43 L 12/07/24 12:00 37.2 C 108 H 21 97 12/07/24 11:30 108/49 L 12/07/24 11:30 108/49 L 12/07/24 11:30 37.1 C 68 17 97 Mechanical Vent 12/07/24 11:16 102/51 L 12/07/24 11:15 37.0 C 67 20 97 Mechanical Vent 12/07/24 11:12 37.0 C 66 19 97 Mechanical Vent 12/07/24 11:00 120/54 L 12/07/24 10:54 36.8 C 62 22 96 Mechanical Vent 12/07/24 10:45 119/54 L 12/07/24 10:39 36.6 C 66 21 96 Mechanical Vent 12/07/24 10:36 36.6 C 60 17 96 Mechanical Vent 12/07/24 10:30 128/54 L 12/07/24 10:27 36.5 C 62 20 96 Mechanical Vent 12/07/24 10:18 36.3 C L 64 18 96 Mechanical Vent 12/07/24 10:16 62 21 97 12/07/24 10:15 117/54 L 12/07/24 10:00 125/57 L 12/07/24 09:57 36.0 C L 60 25 H 97 Mechanical Vent 12/07/24 09:48 35.9 C L 60 21 97 Mechanical Vent 12/07/24 09:45 117/53 L 12/07/24 09:30 123/54 L 12/07/24 09:15 117/53 L 12/07/24 09:12 35.9 C L 60 18 97 Mechanical Vent 12/07/24 09:07 Mechanical Vent 12/07/24 09:00 118/53 L 12/07/24 09:00 118/53 L 12/07/24 08:56 120/53 L 12/07/24 08:54 36.0 C L 60 18 97 Mechanical Vent 12/07/24 08:45 133/59 L 12/07/24 08:45 36.0 C L 60 19 97 Mechanical Vent 12/07/24 08:33 36.0 C L 60 18 97 Mechanical Vent 12/07/24 08:30 134/60 12/07/24 08:15 126/60 12/07/24 08:15 36.2 C L 60 18 97 Mechanical Vent 12/07/24 08:00 12/07/24 08:00 60 12/07/24 07:45 36.6 C 64 20 92 Mechanical Vent 12/07/24 07:45 106/57 L 12/07/24 07:30 132/60 12/07/24 07:30 36.7 C 61 18 98 Mechanical Vent 12/07/24 07:18 65 14 97 12/07/24 07:15 124/58 L 12/07/24 07:15 36.8 C 60 15 98 Mechanical Vent 12/07/24 07:03 36.8 C 63 20 98 Mechanical Vent 12/07/24 07:00 129/60 12/07/24 06:57 36.8 C 61 15 98 Mechanical Vent 12/07/24 06:45 121/52 L 12/07/24 06:39 36.9 C 62 15 98 Mechanical Vent 12/07/24 06:33 36.9 C 60 15 98 12/07/24 06:30 123/53 L 12/07/24 06:30 123/53 L 12/07/24 06:15 127/58 L 12/07/24 06:15 127/58 L 12/07/24 06:12 36.9 C 60 13 98 12/07/24 06:09 36.9 C 60 14 98 12/07/24 05:45 127/55 L 12/07/24 05:45 36.9 C 61 16 98 12/07/24 05:42 36.9 C 62 19 98 12/07/24 05:30 121/54 L 12/07/24 05:30 121/54 L 12/07/24 05:30 121/54 L 12/07/24 05:27 37.0 C 62 15 98 12/07/24 05:15 37.0 C 62 17 98 12/07/24 05:15 123/58 L 12/07/24 05:15 123/58 L 12/07/24 05:15 123/58 L 12/07/24 04:51 37.0 C 61 15 99 12/07/24 04:48 37.0 C 62 15 99 12/07/24 04:45 124/56 L 12/07/24 04:45 124/56 L 12/07/24 04:45 124/56 L 12/07/24 04:24 37.1 C 61 16 99 12/07/24 04:21 37.1 C 60 15 99 12/07/24 04:15 124/54 L 12/07/24 04:15 124/54 L 12/07/24 04:15 37.1 C 61 15 99 12/07/24 04:00 12/07/24 04:00 37.1 C 61 19 99 12/07/24 04:00 115/55 L 12/07/24 04:00 115/55 L 12/07/24 03:45 125/51 L 12/07/24 03:45 125/51 L 12/07/24 03:45 125/51 L 12/07/24 03:45 37.1 C 61 18 99 12/07/24 03:30 122/63 12/07/24 03:30 37.1 C 68 16 99 12/07/24 03:27 61 15 99 12/07/24 03:18 37.1 C 62 17 98 12/07/24 03:15 118/54 L 12/07/24 03:15 118/54 L 12/07/24 03:15 118/54 L 12/07/24 02:54 37.1 C 60 17 98 12/07/24 02:45 124/52 L 12/07/24 02:45 37.1 C 63 16 99 12/07/24 02:42 37.1 C 83 19 99 12/07/24 02:36 37.1 C 60 18 99 12/07/24 02:30 120/53 L 12/07/24 02:30 120/53 L 12/07/24 02:15 115/51 L 12/07/24 02:15 115/51 L 12/07/24 02:15 115/51 L 12/07/24 01:57 37.2 C 60 13 99 12/07/24 01:51 37.2 C 60 14 98 12/07/24 01:42 37.2 C 61 16 99 12/07/24 01:30 115/53 L 12/07/24 01:30 115/53 L 12/07/24 01:30 115/53 L FiO2 12/07/24 12:59 12/07/24 12:45 12/07/24 12:39 12/07/24 12:30 12/07/24 12:30 12/07/24 12:24 12/07/24 12:24 12/07/24 12:15 12/07/24 12:00 12/07/24 11:30 12/07/24 11:30 12/07/24 11:30 12/07/24 11:16 12/07/24 11:15 12/07/24 11:12 12/07/24 11:00 12/07/24 10:54 12/07/24 10:45 12/07/24 10:39 12/07/24 10:36 12/07/24 10:30 12/07/24 10:27 12/07/24 10:18 12/07/24 10:16 25 12/07/24 10:15 12/07/24 10:00 12/07/24 09:57 12/07/24 09:48 12/07/24 09:45 12/07/24 09:30 12/07/24 09:15 12/07/24 09:12 12/07/24 09:07 25 12/07/24 09:00 12/07/24 09:00 12/07/24 08:56 12/07/24 08:54 12/07/24 08:45 12/07/24 08:45 12/07/24 08:33 12/07/24 08:30 12/07/24 08:15 12/07/24 08:15 12/07/24 08:00 12/07/24 08:00 12/07/24 07:45 12/07/24 07:45 12/07/24 07:30 12/07/24 07:30 12/07/24 07:18 12/07/24 07:15 12/07/24 07:15 12/07/24 07:03 12/07/24 07:00 12/07/24 06:57 12/07/24 06:45 12/07/24 06:39 12/07/24 06:33 12/07/24 06:30 12/07/24 06:30 12/07/24 06:15 12/07/24 06:15 12/07/24 06:12 12/07/24 06:09 12/07/24 05:45 12/07/24 05:45 12/07/24 05:42 12/07/24 05:30 12/07/24 05:30 12/07/24 05:30 12/07/24 05:27 12/07/24 05:15 12/07/24 05:15 12/07/24 05:15 12/07/24 05:15 12/07/24 04:51 12/07/24 04:48 12/07/24 04:45 12/07/24 04:45 12/07/24 04:45 12/07/24 04:24 12/07/24 04:21 12/07/24 04:15 12/07/24 04:15 12/07/24 04:15 12/07/24 04:00 12/07/24 04:00 12/07/24 04:00 12/07/24 04:00 12/07/24 03:45 12/07/24 03:45 12/07/24 03:45 12/07/24 03:45 12/07/24 03:30 12/07/24 03:30 12/07/24 03:27 12/07/24 03:18 12/07/24 03:15 12/07/24 03:15 12/07/24 03:15 12/07/24 02:54 12/07/24 02:45 12/07/24 02:45 12/07/24 02:42 12/07/24 02:36 12/07/24 02:30 12/07/24 02:30 12/07/24 02:15 12/07/24 02:15 12/07/24 02:15 12/07/24 01:57 12/07/24 01:51 12/07/24 01:42 12/07/24 01:30 12/07/24 01:30 12/07/24 01:30 Lab & Micro Results (Past 24 Hours) RBC 3.31 M/uL (4.20-5.40) L 12/07/24 WBC 5.85 K/ul (4.8-10.8) 12/07/24 Hgb 9.9 g/dl (12.0-16.0) L 12/07/24 Hct 30.2 % (37.0-47.0) L 12/07/24 MCV 91.2 fL (80.0-100.0) 12/07/24 MCH 29.9 pg (25.0-34.0) 12/07/24 MCHC 32.8 g/dL (32.0-36.0) 12/07/24 RDW Standard Deviation 51.4 fL (36.4-46.3) H 12/07/24 RDW Coefficient of Variation 15.6 % (11.5-14.5) H 12/07/24 Plt Count 50 K/uL (130-400) L 12/07/24 MPV 12.9 fL (9.4-12.4) H 12/07/24 Nucleated Red Blood Cells % (auto) 0.5 % 12/07 Nucleated RBC Absolute Count (auto) 0.03 K/uL (0.00-0.12) 0 12/07/24 Neutrophils (%) (Auto) 74.2 % 12/07/24 Lymphocytes (%) (Auto) 6.5 % 12/07/24 Monocytes # (Auto) 1.06 K/uL (0.11-0.59) H 12/07/24 Eosinophils # (Auto) 0.04 K/uL (0.00-0.50) 12/07/24 Immature Granulocyte % (Auto) 0.5 % 12/07/24 Neutrophils # (Auto) 4.34 K/uL (1.40-6.50) 12/07/24 Lymphocytes # (Auto) 0.38 K/uL (1.20-3.40) L 12/07/24 Monocytes # (Auto) 1.06 K/uL (0.11-0.59) H 12/07/24 Eosinophils # (Auto) 0.04 K/uL (0.00-0.50) 12/07/24 Basophils # (Auto) 0.00 K/uL (0.00-0.20) 12/07/24 Immature Granulocyte # (Auto) 0.03 K/uL (0.01-0.20) 5 Na 138 mmol/L (136-145) 12/07/24 K 4.2 mmol/L (3.5-5.1) 12/07/24 Cl 117 mmol/L (98-107) H 12/07/24 CO2 15 mmol/L (21-32) L 12/07/24 Anion Gap 6 (3-11) 12/07/24 BUN 59 mg/dl (6-23) H 12/07/24 Creatinine 1.68 mg/dl (0.6-1.2) H 12/07/24 BUN/Creatinine Ratio 35.1 (10-20) H 12/07/24 Glu 104 mg/dl (70-99(Fasting)) H 12/07/24 Ca 7.7 mg/dl (8.6-10.3) L 12/07/24 Mg 1.7 mg/dl (1.7-2.4) 12/07/24 04:37 Calcium Level 7.7 mg/dl (8.6-10.3) L 12/07/24 04:37 Prothromb Time International Ratio 1.1 (0.9-1.1) 12/07/24 09:5 9 Microbiology 12/06/24 12:01 Aerobic Blood Culture - Preliminary Blood No growth in Aerobic bottle after 24 hours. Anaerobic Blood Culture - Preliminary No growth in Anaerobic bottle after 24 hours. 12/06/24 11:50 Aerobic Blood Culture - Preliminary Blood No growth in Aerobic bottle after 24 hours. Anaerobic Blood Culture - Preliminary No growth in Anaerobic bottle after 24 hours. 12/06/24 14:47 Urine Culture - Preliminary Urine,Kidney No growth - Less than 1,000 colonies/mL, Final report to follow. 12/06/24 11:59 Urine Culture - Preliminary Urine,Indwelling Cath No growth - Less than 1,000 colonies/mL, Final report to follow. Diagnostic Findings (Past 24 Hours) Retrograde Pyelogram 12/06/24 00:00 FL retrograde includes kub CLINICAL HISTORY: ADD ON RIGHT STENT COMPARISON STUDY: CT of the abdomen and pelvis performed earlier today. FLUOROSCOPY TIME: 46 seconds. Ka,r: 14.07 mGy FLUOROSCOPIC IMAGES: 5 FINDINGS: Fluoroscopy was provided during right retrograde pyelogram, lithotripsy, stone extraction, ureteral dilatation and right ureteral stent placement. There may be a small amount of extraluminal contrast adjacent to the mid ureter. IMPRESSION: Fluoroscopy provided during right retrograde pyelogram, lithotripsy, stone extraction, ureteral dilatation and right ureteral stent placement. ACT 112: Negative or not required by law. Electronically signed by: Coleman Gonzalez M.D. 12/06/2024 3:10 PM I & O Totals 24 Hours 12/06/24 12/07/24 12/08/24 06:59 06:59 06:59 Intake Total 4445.311 / 4445.311 407.648 / 407.648 Output Total 690 / 690 475 / 475 Balance 3755.311 / 3755.311 -67.352 / -67.352 Cumulative 12/06/24 09:55 thru 12/07/24 12:45 Intake Total 4852.959 Output Total 1165 Balance 3687.959 RT Ventilator Mngmt (Last Documented) Ventilator Ordered Settings Ventilator Support Mode CPAP 12/07/24 10:16 Respiratory Rate 12/07/24 12:39 Ventilator Tidal Volume 400 12/07/24 08:00 Setting Minute Ventilation 8 12/07/24 10:16 Ventilator Positive Pressure 12/07/24 10:16 Support Setting Positive End Expiratory 5 12/07/24 10:16 Pressure Fraction of Inspired Oxygen 12/07/24 10:16 Machine Comment Patient arrived from OR and was 12/06/24 15:24 placed on vent with settings as above Ventilator - PT Measurements Respiratory Rate 25 Exhaled Tidal Volume 332 Minute Ventilation 8 Peak Inspiratory Airway 17 Pressure Plateau Pressure 22 Respiratory Cycle Inspiratory: 1:2.5 Expiratory Ratio Inspiratory Phase Time 0.80 End-Tidal CO2 24 Static Lung Compliance 23.47 Dynamic Lung Compliance 27.67 Normal Static Lung Compliance 47.00 Patient Measurements Comment Back from CT scan at this time. Coding Level of Care Code 52502 CRITICAL CARE 1ST 30-74M Diagnoses PJ (acute kidney injury) N17.9 Stage 3b chronic kidney disease N18.32 CKD (chronic kidney disease) stage 4, GFR 15-29 ml/min N18.4 Atrial fibrillation, unspecified type I48.91 Atrial fibrillation type: unspecified Encephalopathy acute G93.40 (4) Atrial fibrillation Atrial fibrillation type: unspecified Qualified Code(s): I48.91 - Unspecified atrial fibrillation
[2024-12-07 11:06] LABS: Fibrinogen 460 mg/dl (184-400); INR 1.1 (0.9-1.1); Partial Thromboplastin Ratio 1.4; Partial Thromboplastin Time 37 Seconds (21-31); Prothrombin Time 11.4 Seconds (9.0-12.0)
[2024-12-07] MEDS: PANTOprazole 40 MG/10 ML SYR IV SCH (11:11)
[2024-12-07] MEDS: THIAMINE HCL 100 MG in SYRINGE 9 ML IV SCH (11:14)
--- NOTE | 2024-12-07 11:23 | Hospitalist Progress Note ---
Date of Service December 07, 2024 Assessment & Plan (1) Respiratory failure: Plan: Acute hypoxemic respiratory failure present on admission. She is receiving ventilator support. Hopefully she can be weaned from the ventilator later today or tomorrow. (2) Septic shock: Plan: Present on admission. She remains on pressor support at this time. Continue IV fluids. Wean off pressors as tolerated (3) Hypothermia: Plan: Currently under a warming blanket. Check thyroid profile. (4) Encephalopathy acute: Plan: Acute metabolic encephalopathy present on admission. Treat underlying infectious process and septic shock. Supportive care (5) Kidney stone on right side: Plan: Acute resulting in moderate R-sided hydronephrosis. Urology consultation and recommendations appreciated. On December 06, she underwent cystoscopy with laser lithotripsy of the obstructing stone and placement of a right ureter stent. (6) Thrombocytopenia: Plan: New onset. Appears to be due to sepsis. Serial labs (7) Atrial fibrillation: Plan: Chronic. PPM in place with paced cardiac rhythm currently. Telemetry Plan To be determined Admission and Anticipated Discharge Date Admission Date: December 06, 2024 Subjective The patient is currently sedated on ventilator assistance. Yesterday, December 06, she underwent cystoscopy with laser lithotripsy and ureteral stent placement on the right side. She remains on cefepime, day 2. Urine culture and blood culture results are pending. Creatinine is down to 1.6 which appears to be around her baseline. Review of Systems 2 Review of Systems: The patient is intubated and sedated and cannot answer any questions regarding review of systems at this time Physical Exam 2 Physical Exam: General-intubated and sedated HEENT-head atraumatic and normocephalic, ETT in place Neck-no lymphadenopathy or thyromegaly, trachea midline Chest-clear to auscultation anteriorly. No rales, wheezing or rhonchi Cardiac-regular rate and rhythm, normal S1 and S2 Abdomen-normal bowel sounds, no hepatosplenomegaly Extremities-no cyanosis, clubbing, or edema Neuro-cannot assess Psych-cannot assess Results & Data Results & Data Vital Signs (Past 12 Hours) Vital Signs Temp Pulse Resp BP Pulse Ox O2 Del Method FiO2 12/07/24 10:16 62 21 97 25 12/07/24 10:00 125/57 L 12/07/24 09:57 36.0 C L 60 25 H 97 Mechanical Vent 12/07/24 09:48 35.9 C L 60 21 97 Mechanical Vent 12/07/24 09:45 117/53 L 12/07/24 09:30 123/54 L 12/07/24 09:15 117/53 L 12/07/24 09:12 35.9 C L 60 18 97 Mechanical Vent 12/07/24 09:07 Mechanical Vent 25 12/07/24 09:00 118/53 L 12/07/24 09:00 118/53 L 12/07/24 08:56 120/53 L 12/07/24 08:54 36.0 C L 60 18 97 Mechanical Vent 12/07/24 08:45 133/59 L 12/07/24 08:45 36.0 C L 60 19 97 Mechanical Vent 12/07/24 08:33 36.0 C L 60 18 97 Mechanical Vent 12/07/24 08:30 134/60 12/07/24 08:15 126/60 12/07/24 08:15 36.2 C L 60 18 97 Mechanical Vent 12/07/24 08:00 25 12/07/24 08:00 60 12/07/24 07:45 36.6 C 64 20 92 Mechanical Vent 12/07/24 07:45 106/57 L 12/07/24 07:30 132/60 12/07/24 07:30 36.7 C 61 18 98 Mechanical Vent 12/07/24 07:18 65 14 97 25 12/07/24 07:15 124/58 L 12/07/24 07:15 36.8 C 60 15 98 Mechanical Vent 12/07/24 07:03 36.8 C 63 20 98 Mechanical Vent 12/07/24 07:00 129/60 12/07/24 06:57 36.8 C 61 15 98 Mechanical Vent 12/07/24 06:45 121/52 L 12/07/24 06:39 36.9 C 62 15 98 Mechanical Vent 12/07/24 06:33 36.9 C 60 15 98 12/07/24 06:30 123/53 L 12/07/24 06:30 123/53 L 12/07/24 06:15 127/58 L 12/07/24 06:15 127/58 L 12/07/24 06:12 36.9 C 60 13 98 12/07/24 06:09 36.9 C 60 14 98 12/07/24 05:45 127/55 L 12/07/24 05:45 36.9 C 61 16 98 12/07/24 05:42 36.9 C 62 19 98 12/07/24 05:30 121/54 L 12/07/24 05:30 121/54 L 12/07/24 05:30 121/54 L 12/07/24 05:27 37.0 C 62 15 98 12/07/24 05:15 37.0 C 62 17 98 12/07/24 05:15 123/58 L 12/07/24 05:15 123/58 L 12/07/24 05:15 123/58 L 12/07/24 04:51 37.0 C 61 15 99 12/07/24 04:48 37.0 C 62 15 99 12/07/24 04:45 124/56 L 12/07/24 04:45 124/56 L 12/07/24 04:45 124/56 L 12/07/24 04:24 37.1 C 61 16 99 12/07/24 04:21 37.1 C 60 15 99 12/07/24 04:15 124/54 L 12/07/24 04:15 124/54 L 12/07/24 04:15 37.1 C 61 15 99 12/07/24 04:00 25 12/07/24 04:00 37.1 C 61 19 99 12/07/24 04:00 115/55 L 12/07/24 04:00 115/55 L 12/07/24 03:45 125/51 L 12/07/24 03:45 125/51 L 12/07/24 03:45 125/51 L 12/07/24 03:45 37.1 C 61 18 99 12/07/24 03:30 122/63 12/07/24 03:30 37.1 C 68 16 99 12/07/24 03:27 61 15 99 25 12/07/24 03:18 37.1 C 62 17 98 12/07/24 03:15 118/54 L 12/07/24 03:15 118/54 L 12/07/24 03:15 118/54 L 12/07/24 02:54 37.1 C 60 17 98 12/07/24 02:45 124/52 L 12/07/24 02:45 37.1 C 63 16 99 12/07/24 02:42 37.1 C 83 19 99 12/07/24 02:36 37.1 C 60 18 99 12/07/24 02:30 120/53 L 12/07/24 02:30 120/53 L 12/07/24 02:15 115/51 L 12/07/24 02:15 115/51 L 12/07/24 02:15 115/51 L 12/07/24 01:57 37.2 C 60 13 99 12/07/24 01:51 37.2 C 60 14 98 12/07/24 01:42 37.2 C 61 16 99 12/07/24 01:30 115/53 L 12/07/24 01:30 115/53 L 12/07/24 01:30 115/53 L 12/07/24 01:18 37.2 C 60 19 99 12/07/24 01:15 115/50 L 12/07/24 01:15 115/50 L 12/07/24 01:15 115/50 L 12/07/24 01:12 37.2 C 59 L 20 99 12/07/24 01:00 111/50 L 12/07/24 01:00 37.3 C 60 23 98 12/07/24 00:45 110/51 L 12/07/24 00:42 37.3 C 60 20 99 12/07/24 00:33 37.3 C 60 22 99 12/07/24 00:30 106/48 L 12/07/24 00:26 61 16 99 25 12/07/24 00:00 25 Laboratory Results 12/07/24 04:37 12/07/24 04:37 PG Care Time/CCT Total # of Minutes Spent Total Time Spent with Patient: Total time spent is greater than 50% in coordination of care (as documented) at patient's floor/unit and/or counseling patient: Coding Level of Care Code 41285 SUB INP/OBS CARE 2/35MIN Diagnoses Respiratory failure J96.00 Chronicity: acute Respiratory failure complication: unspecified whether with hypoxia or hypercapnia Septic shock A41.9; R65.21 Hypothermia T68.XXXA Encephalopathy acute G93.40 Kidney stone on right side N20.0 Thrombocytopenia D69.6 Atrial fibrillation, unspecified type I48.91 Atrial fibrillation type: unspecified (1) Respiratory failure Chronicity: acute Respiratory failure complication: unspecified whether with hypoxia or hypercapnia Qualified Code(s): J96.00 - Acute respiratory failure, unspecified whether with hypoxia or hypercapnia (7) Atrial fibrillation Atrial fibrillation type: unspecified Qualified Code(s): I48.91 - Unspecified atrial fibrillation
[2024-12-08 04:29] LABS: Basophils # (auto) 0.02 K/uL (0.00-0.20); Basophils % (auto) 0.2 %; Eosinophils # (auto) 0.03 K/uL (0.00-0.50); Eosinophils % (auto) 0.3 %; Hematocrit (blood only) 28.1 % (37.0-47.0); Hemoglobin 9.4 g/dl (12.0-16.0); Immature Granulocytes # (auto) 0.05 K/uL (0.01-0.20); Immature Granulocytes % (auto) 0.5 %; Lymphocytes # (auto) 0.65 K/uL (1.20-3.40); Lymphocytes % (auto) 6.4 %; Mean Corpuscular Hemoglobin 29.8 pg (25.0-34.0); Mean Corpuscular Hgb Conc 33.5 g/dL (32.0-36.0); Mean Corpuscular Volume 89.2 fL (80.0-100.0); Mean Platelet Volume 12.5 fL (9.4-12.4); Monocytes # (auto) 1.72 K/uL (0.11-0.59); Monocytes % (auto) 16.9 %; Neutrophils # (auto) 7.71 K/uL (1.40-6.50); Neutrophils % (auto) 75.7 %; Nucleated RBC # (auto) 0.02 K/uL (0.00-0.12); Nucleated RBC % (auto) 0.2 %; Platelet Count 47 K/uL (130-400); RDW Coefficient of Variation 15.5 % (11.5-14.5); RDW Standard Deviation 50.4 fL (36.4-46.3); Red Blood Count 3.15 M/uL (4.20-5.40); White Blood Count 10.18 K/ul (4.8-10.8)
[2024-12-08 04:56] LABS: Calcium 8.2 mg/dl (8.6-10.3); Creatinine Clr Calc Pharmacy 24.6 ml/min
[2024-12-08] MEDS: PANTOprazole 40 MG/10 ML SYR IV ONE (07:19)
[2024-12-08] MEDS: HYDROCORTISONE SOD 200 MG in SYRINGE 0 ML IV STA (07:20)
--- NOTE | 2024-12-08 08:27 | Critical Care Progress Note ---
Date of Service December 08, 2024 Assessment & Plan (1) JP (acute kidney injury): Plan: Reason Critically Ill: 81-year-old female with presumptive sepsis/pyelonephritis requiring vasoactive medication administration PLAN: Neuro: Acute encephalopathy: Suspect metabolic -Improved, redirectable Resp: Respiratory insufficiency: Hypercapnic respiratory failure: Resolved -Extubated 12/07 CV: Atrial fibrillation Pacemaker dependence Hypotension -Wean vasoactive's as tolerated -Given 200 mg hydrocortisone x 1 adding midodrine 10 mg 3 times daily Fluids/Renal: Acute kidney injury on chronic kidney disease stage III: Resolved (at presumptive baseline) Right-sided hydronephrosis, postop day 1From right ureteral stent [place] metabolic acidosis: Hyperchloremia: Improving ID: Sepsis: No leukocytosis; however, hypothermia and vasoactive dependence -Urology placed ureteral stent -History of pseudomonal wound infections and MRSA. Initial urine culture from [facility] contained 3 types of organism present no further data to follow, culture obtained with ureteral stent placement reports less than 1000 CFU -Patient's clinical constellation of symptoms most consistent with sepsis, instrumentation and hardware in ureter I feel patient high risk for complicated infection -Continue broad-spectrum antibiotics and infectious disease consultation -Family reports patient was to see infectious disease in outpatient setting this week for recurrent skin and soft tissue/wound infections GI/Nutrition: Full liquids advance diet as tolerated Heme: anemia: At baseline Thrombocytopenia: No obvious bleeding suspect related to underlying disease process Long-term systemic anticoagulation secondary to atrial fibrillation -Restart apixaban DVT prophylaxis: SCDs, apixaban Endocrine: ICU hyperglycemia protocol -Adequate cortisol response Vascular access: Peripheral IV Code Status: DO NOT RESUSCITATE in event of cardiac arrest -Discussed with family at bedside and included patient in discussions would proceed with extubation and not reintubate in event of respiratory insufficiency. Family also reports that she had previously filled out a DO NOT RESUSCITATE order. At this point patient would not want to undergo procedures or treatments which would prohibit her from returning to living semiindepend ently (she lives with a developmentally delayed son who she provides significant care for) Disposition: ICU until able to wean off vasoactive medication (2) Stage 3b chronic kidney disease: (3) CKD (chronic kidney disease) stage 4, GFR 15-29 ml/min: (4) Atrial fibrillation: (5) Encephalopathy acute: Admission and Anticipated Discharge Date Admission Date: December 06, 2024 Supervising Physician Co-Signing Physician Notes I have personally spent 55 minutes of critical care time in the direct management of this patient. This is a life/limb threatening event. This includes time spent evaluating patient, direct bedside care, chart review, pl acing orders, interpretation of diagnostic studies, discussion with consultants, patient, and/or family members regarding treatment decisions, as well as other required patient management activities. This time is exclusive of all separately billable procedures, and teaching time and separate from and in addition to any other critical care service time. Subjective No overnight events. Patient reports feeling okay. Redirectable reports patient was standing in corner room, there was no person in the corner of the room nursing reports occasional hallucinations but redirectable. Physical Exam Physical Exam: General: Alert. nontoxic. Skin: Warm, dry, Head: Atraumatic Ears, nose, mouth and throat: airway patent Cardiovascular: Normal peripheral perfusion Respiratory: no respiratory distress Gastrointestinal: Non distended Musculoskeletal: No deformity Results & Data Results & Data Vital Signs (Past 12 Hours) Vital Signs Temp Pulse Resp BP Pulse Ox O2 Del Method 12/08/24 08:00 101/63 12/08/24 08:00 101 H 12/08/24 07:51 36.7 C 93 H 20 96 Room Air 12/08/24 07:48 36.7 C 93 H 21 96 Room Air 12/08/24 07:48 107/59 L 12/08/24 07:48 107/59 L 12/08/24 07:42 Room Air 12/08/24 07:36 36.7 C 91 H 21 96 Room Air 12/08/24 07:16 103/58 L 12/08/24 07:13 151/73 H 12/08/24 07:03 36.6 C 20 67/37 L 96 Room Air 12/08/24 06:42 36.7 C 106 H 21 96 12/08/24 06:33 36.8 C 105 H 23 96 12/08/24 06:30 115/60 12/08/24 06:30 115/60 12/08/24 06:30 115/60 12/08/24 06:30 115/60 12/08/24 06:21 36.8 C 100 H 17 96 12/08/24 06:12 36.8 C 101 H 23 96 12/08/24 06:03 36.8 C 109 H 22 97 12/08/24 06:00 109/69 12/08/24 06:00 109/69 12/08/24 06:00 109/69 12/08/24 05:57 36.8 C 106 H 22 97 12/08/24 05:39 36.8 C 98 H 21 96 12/08/24 05:30 96/60 L 12/08/24 05:27 36.8 C 100 H 21 97 12/08/24 05:24 36.8 C 99 H 22 97 12/08/24 05:12 36.9 C 76 21 97 12/08/24 05:00 104/60 12/08/24 04:48 36.9 C 73 22 97 12/08/24 04:45 37.0 C 77 22 97 12/08/24 04:36 37.0 C 75 22 96 12/08/24 04:24 37.0 C 76 19 97 12/08/24 04:12 37.0 C 75 18 97 12/08/24 04:00 37.1 C 71 20 96 12/08/24 03:48 37.1 C 74 18 96 12/08/24 03:30 37.1 C 78 23 97 12/08/24 03:30 122/56 L 12/08/24 03:30 122/56 L 12/08/24 03:01 147/59 H 12/08/24 03:00 37.2 C 78 17 97 12/08/24 02:42 37.2 C 73 23 97 12/08/24 02:33 37.3 C 75 21 96 12/08/24 02:30 105/56 L 12/08/24 02:30 105/56 L 12/08/24 02:30 105/56 L 12/08/24 02:00 119/65 12/08/24 01:30 37.5 C 76 30 H 97 12/08/24 01:21 37.5 C 71 22 96 12/08/24 01:15 37.5 C 71 23 97 12/08/24 00:51 37.6 C H 78 26 H 97 12/08/24 00:39 37.6 C H 75 19 97 12/08/24 00:30 100/49 L 12/08/24 00:30 100/49 L 12/08/24 00:30 100/49 L 12/08/24 00:18 37.7 C H 75 22 96 12/08/24 00:00 109/50 L 12/08/24 00:00 109/50 L 12/08/24 00:00 109/50 L 12/08/24 00:00 109/50 L 12/08/24 00:00 37.7 C H 77 24 96 12/07/24 23:30 102/61 12/07/24 23:21 37.8 C H 82 22 97 12/07/24 23:12 37.8 C H 75 26 H 97 12/07/24 23:00 110/52 L 12/07/24 23:00 37.9 C H 73 27 H 96 12/07/24 22:51 37.9 C H 116 H 26 H 96 12/07/24 22:45 37.9 C H 119 H 24 95 12/07/24 22:33 37.9 C H 119 H 27 H 96 12/07/24 22:30 102/58 L 12/07/24 22:30 102/58 L 12/07/24 22:24 37.9 C H 131 H 28 H 97 12/07/24 22:00 96/56 L 12/07/24 22:00 96/56 L 12/07/24 22:00 96/56 L 12/07/24 22:00 37.8 C H 113 H 24 96 12/07/24 21:30 37.6 C H 98 H 25 H 95 12/07/24 21:30 91/48 L 12/07/24 21:30 91/48 L 12/07/24 21:30 91/48 L 12/07/24 21:30 91/48 L 12/07/24 21:15 37.5 C 109 H 21 96 12/07/24 21:06 37.4 C 109 H 20 96 12/07/24 21:00 94/66 L 12/07/24 20:54 37.3 C 87 25 H 96 12/07/24 20:51 37.2 C 94 H 23 96 12/07/24 20:45 37.2 C 108 H 24 96 12/07/24 20:30 97/62 L 12/07/24 20:30 97/62 L 12/07/24 20:30 37.1 C 97 H 27 H 96 Critical Care Results & Data Vital Signs (Past 12 Hours) Vital Signs Temp Pulse Resp BP Pulse Ox O2 Del Method 12/08/24 08:00 101/63 12/08/24 08:00 101 H 12/08/24 07:51 36.7 C 93 H 20 96 Room Air 12/08/24 07:48 36.7 C 93 H 21 96 Room Air 12/08/24 07:48 107/59 L 12/08/24 07:48 107/59 L 12/08/24 07:42 Room Air 12/08/24 07:36 36.7 C 91 H 21 96 Room Air 12/08/24 07:16 103/58 L 12/08/24 07:13 151/73 H 12/08/24 07:03 36.6 C 20 67/37 L 96 Room Air 12/08/24 06:42 36.7 C 106 H 21 96 12/08/24 06:33 36.8 C 105 H 23 96 12/08/24 06:30 115/60 12/08/24 06:30 115/60 12/08/24 06:30 115/60 12/08/24 06:30 115/60 12/08/24 06:21 36.8 C 100 H 17 96 12/08/24 06:12 36.8 C 101 H 23 96 12/08/24 06:03 36.8 C 109 H 22 97 12/08/24 06:00 109/69 12/08/24 06:00 109/69 12/08/24 06:00 109/69 12/08/24 05:57 36.8 C 106 H 22 97 12/08/24 05:39 36.8 C 98 H 21 96 12/08/24 05:30 96/60 L 12/08/24 05:27 36.8 C 100 H 21 97 12/08/24 05:24 36.8 C 99 H 22 97 12/08/24 05:12 36.9 C 76 21 97 12/08/24 05:00 104/60 12/08/24 04:48 36.9 C 73 22 97 12/08/24 04:45 37.0 C 77 22 97 12/08/24 04:36 37.0 C 75 22 96 12/08/24 04:24 37.0 C 76 19 97 12/08/24 04:12 37.0 C 75 18 97 12/08/24 04:00 37.1 C 71 20 96 12/08/24 03:48 37.1 C 74 18 96 12/08/24 03:30 37.1 C 78 23 97 12/08/24 03:30 122/56 L 12/08/24 03:30 122/56 L 12/08/24 03:01 147/59 H 12/08/24 03:00 37.2 C 78 17 97 12/08/24 02:42 37.2 C 73 23 97 12/08/24 02:33 37.3 C 75 21 96 12/08/24 02:30 105/56 L 12/08/24 02:30 105/56 L 12/08/24 02:30 105/56 L 12/08/24 02:00 119/65 12/08/24 01:30 37.5 C 76 30 H 97 12/08/24 01:21 37.5 C 71 22 96 12/08/24 01:15 37.5 C 71 23 97 12/08/24 00:51 37.6 C H 78 26 H 97 12/08/24 00:39 37.6 C H 75 19 97 12/08/24 00:30 100/49 L 12/08/24 00:30 100/49 L 12/08/24 00:30 100/49 L 12/08/24 00:18 37.7 C H 75 22 96 12/08/24 00:00 109/50 L 12/08/24 00:00 109/50 L 12/08/24 00:00 109/50 L 12/08/24 00:00 109/50 L 12/08/24 00:00 37.7 C H 77 24 96 12/07/24 23:30 102/61 12/07/24 23:21 37.8 C H 82 22 97 12/07/24 23:12 37.8 C H 75 26 H 97 12/07/24 23:00 110/52 L 12/07/24 23:00 37.9 C H 73 27 H 96 12/07/24 22:51 37.9 C H 116 H 26 H 96 12/07/24 22:45 37.9 C H 119 H 24 95 12/07/24 22:33 37.9 C H 119 H 27 H 96 12/07/24 22:30 102/58 L 12/07/24 22:30 102/58 L 12/07/24 22:24 37.9 C H 131 H 28 H 97 12/07/24 22:00 96/56 L 12/07/24 22:00 96/56 L 12/07/24 22:00 96/56 L 12/07/24 22:00 37.8 C H 113 H 24 96 12/07/24 21:30 37.6 C H 98 H 25 H 95 12/07/24 21:30 91/48 L 12/07/24 21:30 91/48 L 12/07/24 21:30 91/48 L 12/07/24 21:30 91/48 L 12/07/24 21:15 37.5 C 109 H 21 96 12/07/24 21:06 37.4 C 109 H 20 96 12/07/24 21:00 94/66 L 12/07/24 20:54 37.3 C 87 25 H 96 12/07/24 20:51 37.2 C 94 H 23 96 12/07/24 20:45 37.2 C 108 H 24 96 12/07/24 20:30 97/62 L 12/07/24 20:30 97/62 L 12/07/24 20:30 37.1 C 97 H 27 H 96 Lab & Micro Results (Past 24 Hours) RBC 3.15 M/uL (4.20-5.40) L 12/08/24 WBC 10.18 K/ul (4.8-10.8) 12/08/24 Hgb 9.4 g/dl (12.0-16.0) L 12/08/24 Hct 28.1 % (37.0-47.0) L 12/08/24 MCV 89.2 fL (80.0-100.0) 12/08/24 MCH 29.8 pg (25.0-34.0) 12/08/24 MCHC 33.5 g/dL (32.0-36.0) 12/08/24 RDW Standard Deviation 50.4 fL (36.4-46.3) H 12/08/24 RDW Coefficient of Variation 15.5 % (11.5-14.5) H 12/08/24 Plt Count 47 K/uL (130-400) L 12/08/24 MPV 12.5 fL (9.4-12.4) H 12/08/24 Nucleated Red Blood Cells % (auto) 0.2 % 12/08 Nucleated RBC Absolute Count (auto) 0.02 K/uL (0.00-0.12) 0 12/08/24 Neutrophils (%) (Auto) 75.7 % 12/08/24 Lymphocytes (%) (Auto) 6.4 % 12/08/24 Monocytes # (Auto) 1.72 K/uL (0.11-0.59) H 12/08/24 Eosinophils # (Auto) 0.03 K/uL (0.00-0.50) 12/08/24 Immature Granulocyte % (Auto) 0.5 % 12/08/24 Neutrophils # (Auto) 7.71 K/uL (1.40-6.50) H 12/08/24 Lymphocytes # (Auto) 0.65 K/uL (1.20-3.40) L 12/08/24 Monocytes # (Auto) 1.72 K/uL (0.11-0.59) H 12/08/24 Eosinophils # (Auto) 0.03 K/uL (0.00-0.50) 12/08/24 Basophils # (Auto) 0.02 K/uL (0.00-0.20) 12/08/24 Immature Granulocyte # (Auto) 0.05 K/uL (0.01-0.20) 5 Na 142 mmol/L (136-145) 12/08/24 K 4.0 mmol/L (3.5-5.1) 12/08/24 Cl 120 mmol/L (98-107) H 12/08/24 CO2 17 mmol/L (21-32) L 12/08/24 Anion Gap 5 (3-11) 12/08/24 BUN 52 mg/dl (6-23) H 12/08/24 Creatinine 1.68 mg/dl (0.6-1.2) H 12/08/24 BUN/Creatinine Ratio 31.0 (10-20) H 12/08/24 Glu 83 mg/dl (70-99(Fasting)) 12/08/24 Ca 8.2 mg/dl (8.6-10.3) L 12/08/24 Calcium Level 8.2 mg/dl (8.6-10.3) L 12/08/24 04:01 Prothromb Time International Ratio 1.1 (0.9-1.1) 12/07/24 09:5 9 Microbiology 12/06/24 12:01 Aerobic Blood Culture - Preliminary Blood No growth in Aerobic bottle after 24 hours. Anaerobic Blood Culture - Preliminary No growth in Anaerobic bottle after 24 hours. 12/06/24 11:50 Aerobic Blood Culture - Preliminary Blood No growth in Aerobic bottle after 24 hours. Anaerobic Blood Culture - Preliminary No growth in Anaerobic bottle after 24 hours. 12/06/24 14:47 Urine Culture - Preliminary Urine,Kidney No growth - Less than 1,000 colonies/mL, Final report to follow. 12/06/24 11:59 Urine Culture - Preliminary Urine,Indwelling Cath No growth - Less than 1,000 colonies/mL, Final report to follow. I & O Totals 24 Hours 12/07/24 12/08/24 12/09/24 06:59 06:59 06:59 Intake Total 4445.311 / 4445.311 813.703 / 813.703 Output Total 690 / 690 1465 / 1465 175 / 175 Balance 3755.311 / 3755.311 -651.297 / -651.297 -175 / -175 Cumulative 12/06/24 09:55 thru 12/08/24 07:38 Intake Total 5259.014 Output Total 2330 Balance 2929.014 RT Ventilator Mngmt (Last Documented) Ventilator Ordered Settings Ventilator Support Mode CPAP 12/07/24 10:16 Respiratory Rate 20 12/08/24 07:51 Ventilator Tidal Volume 400 12/07/24 08:00 Setting Minute Ventilation 8 12/07/24 10:16 Ventilator Positive Pressure 10 12/07/24 10:16 Support Setting Positive End Expiratory 5 12/07/24 10:16 Pressure Fraction of Inspired Oxygen 12/07/24 10:16 Machine Comment Patient arrived from OR and was 12/06/24 15:24 placed on vent with settings as above Ventilator - PT Measurements Respiratory Rate 20 Exhaled Tidal Volume 332 Minute Ventilation 8 Peak Inspiratory Airway 17 Pressure Plateau Pressure 22 Respiratory Cycle Inspiratory: 1:2.5 Expiratory Ratio Inspiratory Phase Time 0.80 End-Tidal CO2 24 Static Lung Compliance 23.47 Dynamic Lung Compliance 27.67 Normal Static Lung Compliance 47.00 Patient Measurements Comment Back from CT scan at this time. Coding Level of Care Code 92879 CRITICAL CARE 1ST 30-74M Diagnoses PJ (acute kidney injury) N17.9 Stage 3b chronic kidney disease N18.32 CKD (chronic kidney disease) stage 4, GFR 15-29 ml/min N18.4 Atrial fibrillation, unspecified type I48.91 Atrial fibrillation type: unspecified Encephalopathy acute G93.40 (4) Atrial fibrillation Atrial fibrillation type: unspecified Qualified Code(s): I48.91 - Unspecified atrial fibrillation
[2024-12-08] MEDS: MIDODRINE HCL 10 MG TAB PO SCH (09:08)
[2024-12-08] MEDS: APIXABAN 2.5 MG TAB PO SCH (09:35)
[2024-12-08] MEDS: MIDODRINE HCL 10 MG TAB PO STA (11:39)
--- NOTE | 2024-12-08 11:41 | Hospitalist Progress Note ---
Date of Service December 08, 2024 Assessment & Plan (1) Respiratory failure: Plan: Acute hypoxemic respiratory failure present on admission. Now resolved. She has been extubated yesterday, December 07, and no longer requires ventilator support (2) Septic shock: Plan: Present on admission. She remains on low-dose pressor support at this time. Midodrine has been started by the critical care team. She will be moved out of the ICU once off pressor support (3) Hypothermia: Plan: Resolved. (4) Encephalopathy acute: Plan: Acute metabolic encephalopathy present on admission. Now resolved. Supportive care (5) Kidney stone on right side: Plan: Acute, resulting in moderate R-sided hydronephrosis. Urology consultation and recommendations appreciated. On December 06, she underwent cystoscopy with laser lithotripsy of the obstructing stone and placement of a right ureter stent. The patient denies any pain (6) Thrombocytopenia: Plan: New onset. Appears to be due to sepsis. Serial labs (7) Atrial fibrillation: Plan: Chronic. PPM in place with paced cardiac rhythm currently. Telemetry Plan Will transfer out of ICU once she is off pressor support. OT and PT evaluations will be requested. I spoke to her about the probable need for short-term rehab placement before she can return home. Admission and Anticipated Discharge Date Admission Date: December 06, 2024 Subjective The patient was extubated yesterday, December 07. She is now alert and oriented and very pleasant in no acute distress. However, she remains on low-dose pressor support. Midodrine has been added by the technical specialist cytology. Urine cultures and blood cultures are negative to date. She remains on cefepime, day 3. She will be moved out of the ICU when she is off pressor support. Review of Systems 2 Review of Systems: Constitutionalno fever or chills ENTno blurred vision, no double vision, no epistaxis, no sore throat Respiratoryno cough, no wheezing, no shortness of breath Cardiacno palpitations, no chest pain, no syncope Charanjit nausea, vomiting, diarrhea, melena, hematochezia GUno urinary retention, no urinary incontinence, no dysuria, no hematuria Musculoskeletalno joint pain, no muscle tenderness Skinno bruising, no rashes, no pruritus Neurono isolated weakness, no paresthesia, no weakness Psychno depression, no anxiety Physical Exam 2 Physical Exam: General-alert and oriented x3, no fever, no chills HEENT-head atraumatic and normocephalic, pupils equal and reactive to light, extraocular muscles intact Neck-no lymphadenopathy or thyromegaly, trachea midline Chest-clear to auscultation. No rales, wheezing or rhonchi Cardiac-regular rate and rhythm, normal S1 and S2 Abdomen-normal bowel sounds, no hepatosplenomegaly Extremities-no cyanosis, clubbing, or edema Neuro-cranial nerves II through XII intact, motor and sensory function within normal limits, strength symmetrical, no focal deficits Psych-normal affect, normal mood Results & Data Results & Data Vital Signs (Past 12 Hours) Vital Signs Temp Pulse Resp BP Pulse Ox O2 Del Method 12/08/24 11:30 103/59 L 12/08/24 11:24 36.6 C 89 19 96 Room Air 12/08/24 11:15 105/56 L 12/08/24 11:11 96/51 L 12/08/24 11:09 36.6 C 75 19 95 Room Air 12/08/24 11:00 118/60 12/08/24 10:57 36.6 C 86 25 H 96 Room Air 12/08/24 10:45 36.7 C 93 H 20 94 Room Air 12/08/24 10:45 102/50 L 12/08/24 10:33 36.7 C 88 19 93 Room Air 12/08/24 10:30 91/49 L 12/08/24 10:27 36.7 C 84 22 94 Room Air 12/08/24 10:15 77/39 L 12/08/24 10:15 36.7 C 84 22 94 Room Air 12/08/24 09:57 36.7 C 88 21 95 Room Air 12/08/24 09:30 36.7 C 118 H 20 96 Room Air 12/08/24 09:15 36.7 C 100 H 24 96 Room Air 12/08/24 09:15 104/58 L 12/08/24 09:15 104/58 L 12/08/24 09:06 36.7 C 105 H 20 96 Room Air 12/08/24 09:00 109/64 12/08/24 08:57 36.6 C 102 H 21 96 Room Air 12/08/24 08:45 103/63 12/08/24 08:45 103/63 12/08/24 08:30 36.7 C 91 H 21 97 Room Air 12/08/24 08:30 109/64 12/08/24 08:15 109/59 L 94 Room Air 12/08/24 08:15 36.6 C 90 20 97 12/08/24 08:00 101/63 12/08/24 08:00 101 H 12/08/24 07:51 36.7 C 93 H 20 96 Room Air 12/08/24 07:48 36.7 C 93 H 21 96 Room Air 12/08/24 07:48 107/59 L 12/08/24 07:48 107/59 L 12/08/24 07:42 Room Air 12/08/24 07:36 36.7 C 91 H 21 96 Room Air 12/08/24 07:16 103/58 L 12/08/24 07:13 151/73 H 12/08/24 07:03 36.6 C 20 67/37 L 96 Room Air 12/08/24 06:42 36.7 C 106 H 21 96 12/08/24 06:33 36.8 C 105 H 23 96 12/08/24 06:30 115/60 12/08/24 06:30 115/60 12/08/24 06:30 115/60 12/08/24 06:30 115/60 12/08/24 06:21 36.8 C 100 H 17 96 12/08/24 06:12 36.8 C 101 H 23 96 12/08/24 06:03 36.8 C 109 H 22 97 12/08/24 06:00 109/69 12/08/24 06:00 109/69 12/08/24 06:00 109/69 12/08/24 05:57 36.8 C 106 H 22 97 12/08/24 05:39 36.8 C 98 H 21 96 12/08/24 05:30 96/60 L 12/08/24 05:27 36.8 C 100 H 21 97 12/08/24 05:24 36.8 C 99 H 22 97 12/08/24 05:12 36.9 C 76 21 97 12/08/24 05:00 104/60 12/08/24 04:48 36.9 C 73 22 97 12/08/24 04:45 37.0 C 77 22 97 12/08/24 04:36 37.0 C 75 22 96 12/08/24 04:24 37.0 C 76 19 97 12/08/24 04:12 37.0 C 75 18 97 12/08/24 04:00 37.1 C 71 20 96 12/08/24 03:48 37.1 C 74 18 96 12/08/24 03:30 37.1 C 78 23 97 12/08/24 03:30 122/56 L 12/08/24 03:30 122/56 L 12/08/24 03:01 147/59 H 12/08/24 03:00 37.2 C 78 17 97 12/08/24 02:42 37.2 C 73 23 97 12/08/24 02:33 37.3 C 75 21 96 12/08/24 02:30 105/56 L 12/08/24 02:30 105/56 L 12/08/24 02:30 105/56 L 12/08/24 02:00 119/65 12/08/24 01:30 37.5 C 76 30 H 97 12/08/24 01:21 37.5 C 71 22 96 12/08/24 01:15 37.5 C 71 23 97 12/08/24 00:51 37.6 C H 78 26 H 97 12/08/24 00:39 37.6 C H 75 19 97 12/08/24 00:30 100/49 L 12/08/24 00:30 100/49 L 12/08/24 00:30 100/49 L 12/08/24 00:18 37.7 C H 75 22 96 12/08/24 00:00 109/50 L 12/08/24 00:00 109/50 L 12/08/24 00:00 109/50 L 12/08/24 00:00 109/50 L 12/08/24 00:00 37.7 C H 77 24 96 Laboratory Results 12/08/24 04:01 12/08/24 04:01 PG Care Time/CCT Total # of Minutes Spent Total Time Spent with Patient: Total time spent is greater than 50% in coordination of care (as documented) at patient's floor/unit and/or counseling patient: Coding Level of Care Code 83374 SUB INP/OBS CARE 2/35MIN Diagnoses Respiratory failure J96.00 Chronicity: acute Respiratory failure complication: unspecified whether with hypoxia or hypercapnia Septic shock A41.9; R65.21 Hypothermia T68.XXXA Encephalopathy acute G93.40 Kidney stone on right side N20.0 Thrombocytopenia D69.6 Atrial fibrillation, unspecified type I48.91 Atrial fibrillation type: unspecified (1) Respiratory failure Chronicity: acute Respiratory failure complication: unspecified whether with hypoxia or hypercapnia Qualified Code(s): J96.00 - Acute respiratory failure, unspecified whether with hypoxia or hypercapnia (7) Atrial fibrillation Atrial fibrillation type: unspecified Qualified Code(s): I48.91 - Unspecified atrial fibrillation
--- NOTE | 2024-12-08 11:57 | Infectious Disease Consult ---
Date of Consultation December 08, 2024 Assessment & Plan (1) Septic shock: (2) Kidney stone on right side: (3) Right ureteral calculus: (4) PJ (acute kidney injury): Plan 89yo F with h/o CAD w/ prior ID, CKD III, chronic venous insufficiency, afib, s/p PPM, HTN, hypothyroidism who presented on 12/06 with increased generalized weakness. She was seen in the ED on 11/26 with RLE cellulitis and prescribed levofloxacin x 7 days. She was seen in ED again on 12/01 for abnormal renal func tion on outpatient labs, abx adjusted and planned outpatient follow up. She called EMS on 12/06 due to a week of generalized weakness. En route in the ambulance, patient became unresponsive and went into respiratory arrest. In the ED, she was intubated, started on pressors and admitted to the ICU. She was found to have a right ureteral stone and some c/f perinephric stranding per urology. S/p emergent right cystoscopy with laser lithotripsy, stone extraction, stent placement on 12/06. She has been receiving cefepime. Extubated on 12/07. She has been afebrile (hypothermic on admission), currently on RA. Initial labs with WBC wnl, Cr 1.60, lactate 1.7. AST 57. Elevated troponin. PCT 0.14. UA 6-10 WBC. MRSA screen neg. Blood and urine cx are no growth. RPP negative. CT chest with mild interstitial thickening favoring mild pulmonary edema, lower lung densities and GGO which favor atelectasis. CTH neg. CTAP with right renal stones previously present in renal pelvis have moved into proximal right ureter a/w moderate hydronephrosis, haziness in peripancreatic fat cannot exclude acute pancreatitis; bibasilar opacities likely atelectasis. ID consulted 12/08. I was not able to see patient since telepresenter is not available for the remainder of the day. Per chart, it seems she would have been on levofloxacin until at least the 14 or 15th outpatient at a lower dose due to her renal function. Unclear if this may could have altered urine studies and culture results. Unfortunately, there are no current or prior growth on urine cultures to help direct antibiotics for a presumptive pyelonephritis in setting of stone. Shes been afebrile though hypothermic initially, no leukocytosis, but is currently on pressors. Im going to continue on cefepime for now while inpatient with outpatient plan to place her back on levofloxacin however making sure that the QTC is not prolonged with a repeat EKG. Duration for a pyelonephritis in this setting, would favor 10-14 days. # Shock on pressors # C/f right pyelonephritis (recent abx use) # Right ureteral calculus s/p lithotripsy and ureteral stent on 12/06 # Hypercapnic respiratory failure # PJ on CKD improved - continue on cefepime 1g IV q12h (renally dosed) - will favor duration of abx 10-14 days for presumed pyelonephritis (start 12/06) - on discharge could use renally dosed levofloxacin however would repeat EKG to ensure she does not still have a prolonged QTC ID will continue to follow. If questions or concerns, contact via [employer] or Infectious Disease Call Center . Sarah Massey MD [facility], Division of Infectious Diseases IDConnect: [phone] Consultation Information This patient recommendation is based on a telemedicine consult request which was completed asynchronously through chart review and information provided by the primary physician. The patient was not seen or examined today. The evaluation is consultative in nature and all patient care and treatment decisions can either be accepted or rejected by the patient's primary hospital-based treating physician using their own independent medical judgment for their patient. [employer] Tender contact information: Please call ID Connect Call Center . (Phone Number For Physician Use Only) Time Spent Reviewing Chart: 31+ minutes History of Present Illness Reason for Consultation: antibiotic treatment duration Attending Physician: Vinay Penny MD History of Present Illness 89yo F with h/o CAD w/ prior ID, CKD III, chronic venous insufficiency, afib, s/ p PPM, HTN, hypothyroidism who presented on 12/06 with increased generalized weakness. She was seen in the ED on 11/26 with RLE cellulitis and prescribed levofloxacin x 7 days. She was seen in ED again on 12/01 for abnormal renal function on outpatient labs, abx adjusted and planned outpatient follow up. She called EMS on 12/06 due to a week of generalized weakness. En route in the ambulance, patient became unresponsive and went into respiratory arrest, underwent bagging with resumption of breathing. She had received epinephrine prior to arrival and was noted to be hypotensive in the ED. She was intubated, started on pressors and admitted to the ICU. She was found to have a right ureteral stone and some c/f perinephric stranding per urology. S/p emergent right cystoscopy with laser lithotripsy, stone extraction, stent placement. She has been receiving cefepime. Extubated on 12/07. She has been afebrile (hypothermic on admission), currently on RA. Initial labs with WBC wnl, Cr 1.60, lactate 1.7. AST 57. Elevated troponin. PCT 0.14. UA 6-10 WBC. MRSA screen neg. Blood and urine cx are no growth. RPP negative. CT chest with mild interstitial thickening favoring mild pulmonary edema, lower lung densities and GGO which favor atelectasis. CTH neg. CTAP with right renal stones previously present in renal pelvis have moved into proximal right ureter a/w moderate hydronephrosis, haziness in peripancreatic fat cannot exclude acute pancreatitis; bibasilar opacities likely atelectasis. ID consulted 12/08. Please note, patient not seen since teleperesnters are unavailable for the remainder of the day Allergies Allergy/AdvReac Type Severity Reaction Status Date / Time latex Allergy Unknown Rash Verified 11/30/24 08:54 Penicillins Allergy Unknown Rash, Verified 11/30/24 08:54 heart palpitations Sulfa (Sulfonamide Allergy Unknown rash Verified 11/30/24 08:54 Antibiotics) cephalexin AdvReac Unknown Diarrhea Verified 11/30/24 08:54 Home Medications Medication Instructions Recorded Confirmed Type dronedarone 400 mg tablet (Multaq) 400 mg PO BID 06/19/18 12/06/24 History multivitamin 1 tab PO QAM 06/19/18 12/06/24 History nitroglycerin 0.4 mg sublingual 0.4 mg sublingual Q5M PRN Chest 06/19/18 12/06/24 History tablet (Nitrostat) Pain biotin 10 mg tablet 10 mg PO QAM 04/05/19 12/06/24 History acetaminophen 500 mg tablet 1,000 mg PO Q6H PRN Pain 08/31/22 12/06/24 History (Tylenol Extra Strength) cholecalciferol (vitamin D3) 125 125 mcg PO QAM 08/31/22 12/06/24 History mcg (5,000 unit) tablet (Vitamin D3) Lift Chair #1 ea 09/27/22 11/23/24 Rx bromelains 500 mg tablet 500 mg PO DAILY 03/10/24 12/06/24 History apixaban 2.5 mg tablet (Eliquis) 2.5 mg PO BID 06/01/24 12/06/24 History lisinopril 5 mg tablet 5 mg PO DAILY #90 tabs 10/06/24 12/06/24 Rx gentamicin 0.1 % topical ointment 1 applic topical UD 12/06/24 12/06/24 History hydrochlorothiazide 12.5 mg tablet 12.5 mg PO UD 12/06/24 12/06/24 History metoprolol succinate 50 mg 50 mg PO QAM 12/06/24 12/06/24 History tablet,extended release 24 hr (Toprol XL) Patient History Medical History History of blood transfusion 11/2023 Osteomyelitis of toe of right foot hx / sx intervention Gastric ulcer reason for upcoming procedure / follow up History of recent hospitalization 11/2023 [facility] - stomach ulcer 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 dressing changes at wound clinic on Tuesdays and home nursing on Fridays History of basal cell carcinoma HTN (hypertension) Pacemaker placed 2006fib -- [employer] -- last check 10/2022 - upcoming 01/16/24 History of myocardial infarction 1990s Slow to wake up after anesthesia denies trouble coming out of /pt reports "just no strong dosages, minimal always works" Osteoarthritis Osteopenia Multinodular goiter denies Hyperthyroidism hx Atrial fibrillation, chronic on warfarin. Follows with René Block PA-C. no hx cardioversion. Chronic venous insufficiency Surgical History History of endoscopy 11/2023 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 H/O excision of mass (01/29/23) Scalp Mass Excision(Right) - Red Farfan MD, FACS Status post ablation of incompetent vein using laser hx 2 ablations History of excision of lesion (01/23/11) Wide excision lesion left lower extremity with full thickness skin graft. Dr. Farfan S/P Mohs surgery for basal cell carcinoma History of tonsillectomy and adenoidectomy History of arthroscopy of knee History of cataract surgery Family History Mother Cardiac disorder Father Hypertension Denies family history of Ovarian cancer Prostate cancer Myocardial infarction Breast cancer Colorectal cancer Social History Smoking Status: Never smoker Second Hand Exposure: No; Hx Alcohol Use: No Hx Substance Use: No Preferred Language: Slovak Communication Ability: Effective Visual Impairment: No Limitations Hearing Ability: Normal Round Kiln Drawer Required: No Beliefs That Will Affect Care: None marital status: / Current Living Situation: Alone current occupational status: employed current occupation: [employer] How many Children do You have: 3 Feels Safe at Home: Yes Safety Concerns: Feels Safe At This Time Childhood Exposure to Second-Hand Smoke: No Diet: regular Diet Comment: regular caffeine: No during the past year weight has: remained stable Dental Care, Regularly: Yes Physical Activity Frequency: Does not Exercise Seatbelt Use: always Sunscreen Use: Yes Assistive Devices: Walker Results & Data Vital Signs (Past 12 Hours) Vital Signs Temp Pulse Resp BP Pulse Ox O2 Del Method 12/08/24 11:30 103/59 L 12/08/24 11:24 36.6 C 89 19 96 Room Air 12/08/24 11:15 105/56 L 12/08/24 11:11 96/51 L 12/08/24 11:09 36.6 C 75 19 95 Room Air 12/08/24 11:00 118/60 12/08/24 10:57 36.6 C 86 25 H 96 Room Air 12/08/24 10:45 36.7 C 93 H 20 94 Room Air 12/08/24 10:45 102/50 L 12/08/24 10:33 36.7 C 88 19 93 Room Air 12/08/24 10:30 91/49 L 12/08/24 10:27 36.7 C 84 22 94 Room Air 12/08/24 10:15 77/39 L 12/08/24 10:15 36.7 C 84 22 94 Room Air 12/08/24 09:57 36.7 C 88 21 95 Room Air 12/08/24 09:30 36.7 C 118 H 20 96 Room Air 12/08/24 09:15 36.7 C 100 H 24 96 Room Air 12/08/24 09:15 104/58 L 12/08/24 09:15 104/58 L 12/08/24 09:06 36.7 C 105 H 20 96 Room Air 12/08/24 09:00 109/64 12/08/24 08:57 36.6 C 102 H 21 96 Room Air 12/08/24 08:45 103/63 12/08/24 08:45 103/63 12/08/24 08:30 36.7 C 91 H 21 97 Room Air 12/08/24 08:30 109/64 12/08/24 08:15 109/59 L 94 Room Air 12/08/24 08:15 36.6 C 90 20 97 12/08/24 08:00 101/63 12/08/24 08:00 101 H 12/08/24 07:51 36.7 C 93 H 20 96 Room Air 12/08/24 07:48 36.7 C 93 H 21 96 Room Air 12/08/24 07:48 107/59 L 12/08/24 07:48 107/59 L 12/08/24 07:42 Room Air 12/08/24 07:36 36.7 C 91 H 21 96 Room Air 12/08/24 07:16 103/58 L 12/08/24 07:13 151/73 H 12/08/24 07:03 36.6 C 20 67/37 L 96 Room Air 12/08/24 06:42 36.7 C 106 H 21 96 12/08/24 06:33 36.8 C 105 H 23 96 12/08/24 06:30 115/60 12/08/24 06:30 115/60 12/08/24 06:30 115/60 12/08/24 06:30 115/60 12/08/24 06:21 36.8 C 100 H 17 96 12/08/24 06:12 36.8 C 101 H 23 96 12/08/24 06:03 36.8 C 109 H 22 97 12/08/24 06:00 109/69 12/08/24 06:00 109/69 12/08/24 06:00 109/69 12/08/24 05:57 36.8 C 106 H 22 97 12/08/24 05:39 36.8 C 98 H 21 96 12/08/24 05:30 96/60 L 12/08/24 05:27 36.8 C 100 H 21 97 12/08/24 05:24 36.8 C 99 H 22 97 12/08/24 05:12 36.9 C 76 21 97 12/08/24 05:00 104/60 12/08/24 04:48 36.9 C 73 22 97 12/08/24 04:45 37.0 C 77 22 97 12/08/24 04:36 37.0 C 75 22 96 12/08/24 04:24 37.0 C 76 19 97 12/08/24 04:12 37.0 C 75 18 97 12/08/24 04:00 37.1 C 71 20 96 12/08/24 03:48 37.1 C 74 18 96 12/08/24 03:30 37.1 C 78 23 97 12/08/24 03:30 122/56 L 12/08/24 03:30 122/56 L 12/08/24 03:01 147/59 H 12/08/24 03:00 37.2 C 78 17 97 12/08/24 02:42 37.2 C 73 23 97 12/08/24 02:33 37.3 C 75 21 96 12/08/24 02:30 105/56 L 12/08/24 02:30 105/56 L 12/08/24 02:30 105/56 L 12/08/24 02:00 119/65 12/08/24 01:30 37.5 C 76 30 H 97 12/08/24 01:21 37.5 C 71 22 96 12/08/24 01:15 37.5 C 71 23 97 12/08/24 00:51 37.6 C H 78 26 H 97 12/08/24 00:39 37.6 C H 75 19 97 12/08/24 00:30 100/49 L 12/08/24 00:30 100/49 L 12/08/24 00:30 100/49 L 12/08/24 00:18 37.7 C H 75 22 96 12/08/24 00:00 109/50 L 12/08/24 00:00 109/50 L 12/08/24 00:00 109/50 L 12/08/24 00:00 109/50 L 12/08/24 00:00 37.7 C H 77 24 96 Laboratory Results Labs reviewed. Diagnostic Findings Imaging reviewed.
[2024-12-08] MEDS: MIDODRINE HCL 10 MG TAB PO ONE (21:09)
[2024-12-09] MEDS: MIDAZOLAM HCL 5 MG/ML 2ML VIAL ONE (00:29)
[2024-12-09 04:54] LABS: BUN Creatinine Ratio 34.3 (10-20); Calcium 8.4 mg/dl (8.6-10.3); Creatinine Clr Calc Pharmacy 29.5 ml/min; Magnesium 2.1 mg/dl (1.7-2.4); Potassium 3.9 mmol/L (3.5-5.1)
[2024-12-09 05:07] LABS: Basophils # (auto) 0.02 K/uL (0.00-0.20); Basophils % (auto) 0.2 %; Eosinophils # (auto) 0.16 K/uL (0.00-0.50); Eosinophils % (auto) 1.7 %; Hematocrit (blood only) 26.7 % (37.0-47.0); Immature Granulocytes # (auto) 0.05 K/uL (0.01-0.20); Immature Granulocytes % (auto) 0.5 %; Lymphocytes # (auto) 0.65 K/uL (1.20-3.40); Mean Corpuscular Hemoglobin 29.9 pg (25.0-34.0); Mean Corpuscular Hgb Conc 33.7 g/dL (32.0-36.0); Mean Corpuscular Volume 88.7 fL (80.0-100.0); Monocytes # (auto) 1.52 K/uL (0.11-0.59); Monocytes % (auto) 16.4 %; Neutrophils # (auto) 6.87 K/uL (1.40-6.50); Neutrophils % (auto) 74.2 %; Nucleated RBC # (auto) 0.02 K/uL (0.00-0.12); Nucleated RBC % (auto) 0.2 %; Platelet Count 50 K/uL (130-400); RDW Coefficient of Variation 15.9 % (11.5-14.5); RDW Standard Deviation 51.3 fL (36.4-46.3); Red Blood Count 3.01 M/uL (4.20-5.40); White Blood Count 9.27 K/ul (4.8-10.8)
--- NOTE | 2024-12-09 08:17 | Infectious Disease Progress Nt ---
Date of Service December 09, 2024 Assessment & Plan (1) Septic shock: (2) Kidney stone on right side: (3) Right ureteral calculus: (4) PJ (acute kidney injury): Plan 89yo F with h/o CAD w/ prior RI, CKD III, chronic venous insufficiency, afib, s/p PPM, HTN, hypothyroidism who presented on 12/06 with increased generalized weakness. She was seen in the ED on 11/26 with RLE cellulitis and prescribed levofloxacin x 7 days. She was seen in ED again on 12/01 for abnormal renal fun ction on outpatient labs, abx adjusted and planned outpatient follow up. She called EMS on 12/06 due to a week of generalized weakness. En route in the ambulance, patient became unresponsive and went into respiratory arrest. In the ED, she was intubated, started on pressors and admitted to the ICU. She was found to have a right ureteral stone and some c/f perinephric stranding per urology. S/p emergent right cystoscopy with laser lithotripsy, stone extraction, stent placement on 12/06. She has been receiving cefepime. Extubated on 12/07. She has been afebrile (hypothermic on admission), currently on RA. Initial labs with WBC wnl, Cr 1.60, lactate 1.7. AST 57. Elevated troponin. PCT 0.14. UA 6-10 WBC. MRSA screen neg. Blood and urine cx are no growth. RPP negative. CT chest with mild interstitial thickening favoring mild pulmonary edema, lower lung densities and GGO which favor atelectasis. CTH neg. CTAP with right renal stones previously present in renal pelvis have moved into proximal right ureter a/w moderate hydronephrosis, haziness in peripancreatic fat cannot exclude acute pancreatitis; bibasilar opacities likely atelectasis. ID consulted 12/08. Clinically no complaints. Will keep on cefepime for presumed pyelonephritis. She doesnt c/o urinary symptoms or flank pain. No other localizing symptoms. Possible cultures are negative since she was on levofloxacin x 1 week prior to admission. Discussed with CCM, plan to get TTE. Will follow. # Shock on pressors # C/f right pyelonephritis (recent abx use) # Right ureteral calculus s/p lithotripsy and ureteral stent on 12/06 # Hypercapnic respiratory failure extubated 12/07 # PJ on CKD improved # Chronic venous insufficiency no acute erythema/purulence - continue on cefepime 1g IV q12h (renally dosed) - will f/u ECHO - likely plan for 10-14 dyas of abx for presumed pyelonephritis (start 12/06) Wiill continue to follow. If questions or concerns, contact via [employer] or Infectious Disease Call Center . Sarah Massey MD [facility], Division of Infectious Diseases Admission and Anticipated Discharge Date Admission Date: December 06, 2024 Subjective Subsequent visit was provided via telemedicine using two-way real-time interactive telecommunication between the patient and the telemedicine provider. For the duration of the visit, the provider was performing the assessment from a different facility than the patient. This includesuse of bluetooth stethoscope forauscultationperformed by the telepresenter that the telemedicine provider can hear if described in the physical exam. [employer] contact information: Please call ID Connect Call Center . (Phone Number For Physician Use Only) After establishing a telemedicine visit, patient was: Patient was verified with two unique identifiers, Patient/authorized rep acknowledged consent and understanding and Gave permission to continue telehealth session Time Spent with Patient: Subsequent => 55 min Patient reports that she is feeling well. She denies having any pain at the moment. Prior to admission, she denies having had any dysuria or urinary frequency, denies having any flank pain. No chest pain or shortness of breath. She has open wounds on her legs however denies having any pain in her legs, even on palpation. Physical Exam Physical Exam: General: Awake, alert, no acute distress HEENT: NC/AT, EOMI, mmm Neck: supple Lungs: respirations non-labored Abdomen: soft, NT/ND Back: ttp on left side Ext: chronic changes on both legs, open wounds, nontender, no purulence Results & Data Vital Signs (Past 12 Hours) Vital Signs Temp Pulse Resp BP Pulse Ox 12/09/24 08:00 100 H 12/09/24 06:30 36.4 C L 98 H 21 86 L 12/09/24 06:30 131/78 12/09/24 06:30 131/78 12/09/24 06:24 36.4 C L 107 H 18 95 02/20/25 06:03 36.4 C L 95 H 18 96 12/09/24 06:00 125/64 12/09/24 05:54 36.4 C L 102 H 18 92 12/09/24 05:51 36.4 C L 86 19 96 12/09/24 05:45 36.3 C L 99 H 18 95 12/09/24 05:33 36.3 C L 86 23 95 12/09/24 05:30 119/55 L 12/09/24 05:27 36.3 C L 111 H 22 96 12/09/24 05:21 36.3 C L 78 18 94 12/09/24 05:12 36.3 C L 94 H 26 H 95 12/09/24 05:03 36.3 C L 73 18 94 12/09/24 05:00 77/41 L 12/09/24 05:00 77/41 L 12/09/24 04:45 36.2 C L 81 20 95 12/09/24 04:33 36.2 C L 93 H 21 96 12/09/24 04:30 83/44 L 12/09/24 04:30 83/44 L 12/09/24 04:18 36.2 C L 90 20 95 12/09/24 04:03 36.1 C L 101 H 27 H 92 12/09/24 04:00 104/51 L 12/09/24 04:00 104/51 L 12/09/24 03:57 36.1 C L 86 24 94 12/09/24 03:42 36.1 C L 92 H 21 96 12/09/24 03:33 36.1 C L 104 H 21 97 12/09/24 03:30 122/69 12/09/24 03:30 122/69 12/09/24 03:30 122/69 12/09/24 03:30 122/69 12/09/24 02:57 36.1 C L 85 21 96 12/09/24 02:54 36.1 C L 93 H 18 94 12/09/24 02:42 36.1 C L 100 H 19 91 12/09/24 02:31 86/56 L 12/09/24 02:31 86/56 L 12/09/24 02:31 86/56 L 12/09/24 02:30 36.0 C L 99 H 24 93 12/09/24 02:27 36.0 C L 95 H 16 89 L 12/09/24 02:12 36.0 C L 82 18 96 12/09/24 02:03 36.0 C L 82 20 96 12/09/24 02:00 95/47 L 12/09/24 01:57 36.0 C L 88 22 95 12/09/24 01:54 36.0 C L 81 24 96 12/09/24 01:42 36.0 C L 80 19 98 12/09/24 01:30 97/56 L 12/09/24 01:27 35.9 C L 81 20 96 12/09/24 01:24 35.9 C L 76 17 96 12/09/24 01:03 35.9 C L 85 22 96 12/09/24 01:00 122/55 L 12/09/24 01:00 122/55 L 12/09/24 00:30 35.9 C L 73 19 98 12/09/24 00:30 128/66 12/09/24 00:21 35.9 C L 80 22 97 12/09/24 00:12 35.9 C L 83 15 98 12/09/24 00:06 35.9 C L 81 19 98 12/09/24 00:00 125/65 12/09/24 00:00 125/65 12/09/24 00:00 125/65 12/08/24 23:57 35.9 C L 80 19 98 12/08/24 23:51 35.9 C L 80 19 98 12/08/24 23:42 35.9 C L 80 20 98 12/08/24 23:30 35.9 C L 80 19 98 12/08/24 21:21 35.8 C L 78 22 95 12/08/24 21:15 35.8 C L 80 18 97 12/08/24 21:06 35.8 C L 80 19 96 12/08/24 21:01 84/53 L 12/08/24 21:01 84/53 L 12/08/24 20:54 35.8 C L 81 18 96 12/08/24 20:51 35.8 C L 81 19 97 12/08/24 20:30 35.8 C L 80 21 97 12/08/24 20:18 35.8 C L 79 21 96 Laboratory Results Labs reviewed. Diagnostic Findings Imaging reviewed.
--- NOTE | 2024-12-09 08:29 | Critical Care Progress Note ---
Date of Service December 09, 2024 Assessment & Plan (1) PJ (acute kidney injury): Plan: Reason Critically Ill: 81-year-old female with presumptive sepsis/pyelonephritis requiring vasoactive medication administration PLAN: Neuro: Acute encephalopathy: Suspect metabolic: Resolved Resp: Respiratory insufficiency: Hypercapnic respiratory failure: Resolved -Extubated 12/07 CV: Atrial fibrillation: Long-term anticoagulation on Eliquis Pacemaker dependence Hypotension -Wean vasoactive's as tolerated -Given 200 mg hydrocortisone x 1 on 12/08 - midodrine 10 mg 3 times daily -Echocardiogram and troponins Fluids/Renal: Acute kidney injury on chronic kidney disease stage III: Resolved (at presumptive baseline) Right-sided hydronephrosis, postop day 1From right ureteral stent Hyperchloremia: Improving ID: Sepsis: Resolved -Urology placed ureteral stent -History of pseudomonal wound infections and MRSA. Initial urine culture from [facility] contained 3 types of organism present no further data to follow, culture obtained with ureteral stent placement reports less than 1000 CFU -Reviewed infectious disease consultation: Discussed via [facility] -Cefepime 1 g every 12 hours, 10 to 14-day duration (day 4) -Suspect culture negativity because patient was on ciprofloxacin prior to arrival GI/Nutrition: advance diet as tolerated Heme: anemia: At baseline Thrombocytopenia: No obvious bleeding suspect related to underlying disease process Long-term systemic anticoagulation secondary to atrial fibrillation -apixaban DVT prophylaxis: SCDs, apixaban Endocrine: ICU hyperglycemia protocol Vascular access: Peripheral IV Code Status: DO NOT RESUSCITATE in event of cardiac arrest -Discussed with family at bedside and included patient in discussions would proceed with extubation and not reintubate in event of respiratory insufficiency. Family also reports that she had previously filled out a DO NOT RESUSCITATE order. At this point patient would not want to undergo procedures or treatments which would prohibit her from returning to living semiindependently (she lives with a developmentally delayed son who she provides significant care for) Disposition: ICU secondary to vasoactive medication requirement (2) Stage 3b chronic kidney disease: (3) CKD (chronic kidney disease) stage 4, GFR 15-29 ml/min: (4) Atrial fibrillation: (5) Encephalopathy acute: Admission and Anticipated Discharge Date Admission Date: December 06, 2024 Supervising Physician Co-Signing Physician Notes I have personally spent 40 minutes of critical care time in the direct management of this patient. This is a life/limb threatening event. This includes time spent evaluating patient, direct bedside care, chart review, placing orders, interpretation of diagnostic studies, discussion with consultants, patient, and/or family members regarding treatment decisions, as well as other required patient management activities. This time is exclusive of all separately billable procedures, and teaching time and separate from and in addition to any other critical care service time. Subjective Overnight patient required reinitiation of vasoactive medication. Physical Exam Physical Exam: General: Alert. nontoxic. Skin: Warm, dry, Head: Atraumatic Ears, nose, mouth and throat: airway patent Cardiovascular: Normal peripheral perfusion Respiratory: no respiratory distress Gastrointestinal: Non distended Musculoskeletal: No deformity Results & Data Results & Data Vital Signs (Past 12 Hours) Vital Signs Temp Pulse Resp BP Pulse Ox O2 Del Method 12/09/24 08:00 100 H 12/09/24 07:30 36.5 C 106 H 19 120/65 94 Room Air 12/09/24 07:00 36.5 C 112 H 19 110/61 94 Room Air 12/09/24 06:30 36.4 C L 98 H 21 86 L 12/09/24 06:30 131/78 12/09/24 06:30 131/78 12/09/24 06:24 36.4 C L 107 H 18 95 12/09/24 06:03 36.4 C L 95 H 18 96 12/09/24 06:00 125/64 12/09/24 05:54 36.4 C L 102 H 18 92 12/09/24 05:51 36.4 C L 86 19 96 12/09/24 05:45 36.3 C L 99 H 18 95 12/09/24 05:33 36.3 C L 86 23 95 12/09/24 05:30 119/55 L 12/09/24 05:27 36.3 C L 111 H 22 96 12/09/24 05:21 36.3 C L 78 18 94 12/09/24 05:12 36.3 C L 94 H 26 H 95 12/09/24 05:03 36.3 C L 73 18 94 12/09/24 05:00 77/41 L 12/09/24 05:00 77/41 L 12/09/24 04:45 36.2 C L 81 20 95 12/09/24 04:33 36.2 C L 93 H 21 96 12/09/24 04:30 83/44 L 12/09/24 04:30 83/44 L 12/09/24 04:18 36.2 C L 90 20 95 12/09/24 04:03 36.1 C L 101 H 27 H 92 12/09/24 04:00 104/51 L 12/09/24 04:00 104/51 L 12/09/24 03:57 36.1 C L 86 24 94 12/09/24 03:42 36.1 C L 92 H 21 96 12/09/24 03:33 36.1 C L 104 H 21 97 12/09/24 03:30 122/69 12/09/24 03:30 122/69 12/09/24 03:30 122/69 12/09/24 03:30 122/69 12/09/24 02:57 36.1 C L 85 21 96 12/09/24 02:54 36.1 C L 93 H 18 94 12/09/24 02:42 36.1 C L 100 H 19 91 12/09/24 02:31 86/56 L 12/09/24 02:31 86/56 L 12/09/24 02:31 86/56 L 12/09/24 02:30 36.0 C L 99 H 24 93 12/09/24 02:27 36.0 C L 95 H 16 89 L 12/09/24 02:12 36.0 C L 82 18 96 12/09/24 02:03 36.0 C L 82 20 96 12/09/24 02:00 95/47 L 12/09/24 01:57 36.0 C L 88 22 95 12/09/24 01:54 36.0 C L 81 24 96 12/09/24 01:42 36.0 C L 80 19 98 12/09/24 01:30 97/56 L 12/09/24 01:27 35.9 C L 81 20 96 12/09/24 01:24 35.9 C L 76 17 96 12/09/24 01:03 35.9 C L 85 22 96 12/09/24 01:00 122/55 L 12/09/24 01:00 122/55 L 12/09/24 00:30 35.9 C L 73 19 98 02/20/25 00:30 128/66 12/09/24 00:21 35.9 C L 80 22 97 12/09/24 00:12 35.9 C L 83 15 98 12/09/24 00:06 35.9 C L 81 19 98 12/09/24 00:00 125/65 12/09/24 00:00 125/65 12/09/24 00:00 125/65 12/08/24 23:57 35.9 C L 80 19 98 12/08/24 23:51 35.9 C L 80 19 98 12/08/24 23:42 35.9 C L 80 20 98 12/08/24 23:30 35.9 C L 80 19 98 12/08/24 21:21 35.8 C L 78 22 95 12/08/24 21:15 35.8 C L 80 18 97 12/08/24 21:06 35.8 C L 80 19 96 12/08/24 21:01 84/53 L 12/08/24 21:01 84/53 L 12/08/24 20:54 35.8 C L 81 18 96 12/08/24 20:51 35.8 C L 81 19 97 12/08/24 20:30 35.8 C L 80 21 97 Critical Care Results & Data Vital Signs (Past 12 Hours) Vital Signs Temp Pulse Resp BP Pulse Ox O2 Del Method 12/09/24 08:00 100 H 12/09/24 07:30 36.5 C 106 H 19 120/65 94 Room Air 12/09/24 07:00 36.5 C 112 H 19 110/61 94 Room Air 12/09/24 06:30 36.4 C L 98 H 21 86 L 12/09/24 06:30 131/78 12/09/24 06:30 131/78 12/09/24 06:24 36.4 C L 107 H 18 95 12/09/24 06:03 36.4 C L 95 H 18 96 12/09/24 06:00 125/64 12/09/24 05:54 36.4 C L 102 H 18 92 12/09/24 05:51 36.4 C L 86 19 96 12/09/24 05:45 36.3 C L 99 H 18 95 12/09/24 05:33 36.3 C L 86 23 95 12/09/24 05:30 119/55 L 12/09/24 05:27 36.3 C L 111 H 22 96 12/09/24 05:21 36.3 C L 78 18 94 12/09/24 05:12 36.3 C L 94 H 26 H 95 12/09/24 05:03 36.3 C L 73 18 94 12/09/24 05:00 77/41 L 12/09/24 05:00 77/41 L 12/09/24 04:45 36.2 C L 81 20 95 12/09/24 04:33 36.2 C L 93 H 21 96 12/09/24 04:30 83/44 L 12/09/24 04:30 83/44 L 12/09/24 04:18 36.2 C L 90 20 95 12/09/24 04:03 36.1 C L 101 H 27 H 92 12/09/24 04:00 104/51 L 12/09/24 04:00 104/51 L 12/09/24 03:57 36.1 C L 86 24 94 12/09/24 03:42 36.1 C L 92 H 21 96 12/09/24 03:33 36.1 C L 104 H 21 97 12/09/24 03:30 122/69 12/09/24 03:30 122/69 12/09/24 03:30 122/69 12/09/24 03:30 122/69 12/09/24 02:57 36.1 C L 85 21 96 12/09/24 02:54 36.1 C L 93 H 18 94 12/09/24 02:42 36.1 C L 100 H 19 91 12/09/24 02:31 86/56 L 12/09/24 02:31 86/56 L 12/09/24 02:31 86/56 L 12/09/24 02:30 36.0 C L 99 H 24 93 12/09/24 02:27 36.0 C L 95 H 16 89 L 12/09/24 02:12 36.0 C L 82 18 96 12/09/24 02:03 36.0 C L 82 20 96 12/09/24 02:00 95/47 L 12/09/24 01:57 36.0 C L 88 22 95 12/09/24 01:54 36.0 C L 81 24 96 12/09/24 01:42 36.0 C L 80 19 98 12/09/24 01:30 97/56 L 12/09/24 01:27 35.9 C L 81 20 96 12/09/24 01:24 35.9 C L 76 17 96 12/09/24 01:03 35.9 C L 85 22 96 12/09/24 01:00 122/55 L 12/09/24 01:00 122/55 L 12/09/24 00:30 35.9 C L 73 19 98 12/09/24 00:30 128/66 12/09/24 00:21 35.9 C L 80 22 97 12/09/24 00:12 35.9 C L 83 15 98 12/09/24 00:06 35.9 C L 81 19 98 12/09/24 00:00 125/65 12/09/24 00:00 125/65 12/09/24 00:00 125/65 12/08/24 23:57 35.9 C L 80 19 98 12/08/24 23:51 35.9 C L 80 19 98 12/08/24 23:42 35.9 C L 80 20 98 12/08/24 23:30 35.9 C L 80 19 98 12/08/24 21:21 35.8 C L 78 22 95 12/08/24 21:15 35.8 C L 80 18 97 12/08/24 21:06 35.8 C L 80 19 96 12/08/24 21:01 84/53 L 12/08/24 21:01 84/53 L 12/08/24 20:54 35.8 C L 81 18 96 12/08/24 20:51 35.8 C L 81 19 97 12/08/24 20:30 35.8 C L 80 21 97 Lab & Micro Results (Past 24 Hours) RBC 3.01 M/uL (4.20-5.40) L 12/09/24 WBC 9.27 K/ul (4.8-10.8) 12/09/24 Hgb 9.0 g/dl (12.0-16.0) L 12/09/24 Hct 26.7 % (37.0-47.0) L 12/09/24 MCV 88.7 fL (80.0-100.0) 12/09/24 MCH 29.9 pg (25.0-34.0) 12/09/24 MCHC 33.7 g/dL (32.0-36.0) 12/09/24 RDW Standard Deviation 51.3 fL (36.4-46.3) H 12/09/24 RDW Coefficient of Variation 15.9 % (11.5-14.5) H 12/09/24 Plt Count 50 K/uL (130-400) L 12/09/24 MPV 12.0 fL (9.4-12.4) 12/09/24 Nucleated Red Blood Cells % (auto) 0.2 % 12/09 Nucleated RBC Absolute Count (auto) 0.02 K/uL (0.00-0.12) 0 12/09/24 Neutrophils (%) (Auto) 74.2 % 12/09/24 Lymphocytes (%) (Auto) 7.0 % 12/09/24 Monocytes # (Auto) 1.52 K/uL (0.11-0.59) H 12/09/24 Eosinophils # (Auto) 0.16 K/uL (0.00-0.50) 12/09/24 Immature Granulocyte % (Auto) 0.5 % 12/09/24 Neutrophils # (Auto) 6.87 K/uL (1.40-6.50) H 12/09/24 Lymphocytes # (Auto) 0.65 K/uL (1.20-3.40) L 12/09/24 Monocytes # (Auto) 1.52 K/uL (0.11-0.59) H 12/09/24 Eosinophils # (Auto) 0.16 K/uL (0.00-0.50) 12/09/24 Basophils # (Auto) 0.02 K/uL (0.00-0.20) 12/09/24 Immature Granulocyte # (Auto) 0.05 K/uL (0.01-0.20) 5 Na 141 mmol/L (136-145) 12/09/24 K 3.9 mmol/L (3.5-5.1) 12/09/24 Cl 118 mmol/L (98-107) H 12/09/24 CO2 17 mmol/L (21-32) L 12/09/24 Anion Gap 6 (3-11) 12/09/24 BUN 48 mg/dl (6-23) H 12/09/24 Creatinine 1.40 mg/dl (0.6-1.2) H 12/09/24 BUN/Creatinine Ratio 34.3 (10-20) H 12/09/24 Glu 80 mg/dl (70-99(Fasting)) 12/09/24 Ca 8.4 mg/dl (8.6-10.3) L 12/09/24 Mg 2.1 mg/dl (1.7-2.4) 12/09/24 04:15 Calcium Level 8.4 mg/dl (8.6-10.3) L 12/09/24 04:15 Microbiology 12/06/24 12:01 Aerobic Blood Culture - Preliminary Blood No growth in Aerobic bottle after 48 hours. Anaerobic Blood Culture - Preliminary No growth in Anaerobic bottle after 48 hours. 12/06/24 11:50 Aerobic Blood Culture - Preliminary Blood No growth in Aerobic bottle after 48 hours. Anaerobic Blood Culture - Preliminary No growth in Anaerobic bottle after 48 hours. 12/06/24 14:47 Urine Culture - Final Urine,Kidney No growth - less than 1,000 colonies/mL. 12/06/24 11:59 Urine Culture - Final Urine,Indwelling Cath No growth - less than 1,000 colonies/mL. I & O Totals 24 Hours 12/08/24 12/09/24 12/10/24 06:59 06:59 06:59 Intake Total 813.703 / 813.703 486.260 / 486.260 .652 / 17.652 Output Total 1465 / 1465 1220 / 1220 Balance -651.297 / -651.297 -733.740 / -733.740 .652 / 17.652 Cumulative 12/06/24 09:55 thru 12/09/24 08:16 Intake Total 5762.926 Output Total 3375 Balance 2387.926 RT Ventilator Mngmt (Last Documented) Ventilator Ordered Settings Ventilator Support Mode CPAP 12/07/24 10:16 Respiratory Rate 19 12/09/24 07:30 Ventilator Tidal Volume 400 12/07/24 08:00 Setting Minute Ventilation 8 12/07/24 10:16 Ventilator Positive Pressure 10 12/07/24 10:16 Support Setting Positive End Expiratory 5 12/07/24 10:16 Pressure Fraction of Inspired Oxygen 25 12/07/24 10:16 Machine Comment Patient arrived from OR and was 12/06/24 15:24 placed on vent with settings as above Ventilator - PT Measurements Respiratory Rate 19 Exhaled Tidal Volume 332 Minute Ventilation 8 Peak Inspiratory Airway 17 Pressure Plateau Pressure 22 Respiratory Cycle Inspiratory: 1:2.5 Expiratory Ratio Inspiratory Phase Time 0.80 End-Tidal CO2 24 Static Lung Compliance 23.47 Dynamic Lung Compliance 27.67 Normal Static Lung Compliance 47.00 Patient Measurements Comment Back from CT scan at this time. Coding Level of Care Code 31124 CRITICAL CARE 1ST 30-74M Diagnoses PJ (acute kidney injury) N17.9 Stage 3b chronic kidney disease N18.32 CKD (chronic kidney disease) stage 4, GFR 15-29 ml/min N18.4 Atrial fibrillation, unspecified type I48.91 Atrial fibrillation type: unspecified Encephalopathy acute G93.40 (4) Atrial fibrillation Atrial fibrillation type: unspecified Qualified Code(s): I48.91 - Unspecified atrial fibrillation
[2024-12-09] MEDS: THIAMINE HCL 100 MG TAB PO SCH (08:38)
[2024-12-09 10:19] LABS: Albumin Level 2.6 gm/dl (3.4-5.0); Bilirubin Direct 0.2 mg/dl (0-0.2); Bilirubin,Total 1.2 mg/dl (0.2-1.0); Total Protein 5.7 gm/dl (6.0-8.3)
[2024-12-09 10:26] LABS: Troponin I High Sensitivity 30.5 pg/ml (0-14)
--- NOTE | 2024-12-09 13:05 | Hospitalist Progress Note ---
Date of Service December 09, 2024 Assessment & Plan (1) Respiratory failure: Plan: Acute hypoxemic respiratory failure present on admission. Now resolved. She was extubated on December 07 (2) Septic shock: Plan: Present on admission. She remains on low-dose pressor support at this time. Midodrine has been started by the critical care team. She will be moved out of the ICU once off pressor support (3) Hypothermia: Plan: Resolved. (4) Encephalopathy acute: Plan: Acute metabolic encephalopathy present on admission. Now resolved. Supportive care (5) Kidney stone on right side: Plan: Acute, resulting in moderate R-sided hydronephrosis. Urology consultation and recommendations appreciated. On December 06, she underwent cystoscopy with laser lithotripsy of the obstructing stone and placement of a right ureter stent. The patient denies any pain. [facility] catheter is in place with evidence of gross hematuria. This will eventually resolve (6) Thrombocytopenia: Plan: New onset. Appears to be due to sepsis. Serial labs (7) Atrial fibrillation: Plan: Chronic. PPM in place with paced cardiac rhythm currently. Telemetry Plan Will transfer out of ICU once she is off pressor support. OT and PT evaluations have been requested. Admission and Anticipated Discharge Date Admission Date: December 06, 2024 Subjective Alert and oriented. Pleasant. She remains on low-dose parenteral Levophed and nurses are working on getting her off this. Midodrine has been started. Creatinine improved to 1.4. Urine cultures and blood cultures remain negative although it is thought she had sepsis on admission. Cefepime day 4. She is on room air. OT and PT assessments ordered and pending Review of Systems 2 Review of Systems: Constitutionalno fever or chills ENTno blurred vision, no double vision, no epistaxis, no sore throat Respiratoryno cough, no wheezing, no shortness of breath Cardiacno palpitations, no chest pain, no syncope Charanjit nausea, vomiting, diarrhea, melena, hematochezia GUno urinary retention, no urinary incontinence, no dysuria, no hematuria Musculoskeletalno joint pain, no muscle tenderness Skinno bruising, no rashes, no pruritus Neurono isolated weakness, no paresthesia, no weakness Psychno depression, no anxiety Physical Exam 2 Physical Exam: General-alert and oriented x3, no fever, no chills HEENT-head atraumatic and normocephalic, pupils equal and reactive to light, extraocular muscles intact Neck-no lymphadenopathy or thyromegaly, trachea midline Chest-clear to auscultation. No rales, wheezing or rhonchi Cardiac-regular rate and rhythm, normal S1 and S2 Abdomen-normal bowel sounds, no hepatosplenomegaly Extremities-no cyanosis, clubbing, or edema Neuro-cranial nerves II through XII intact, motor and sensory function within normal limits, strength symmetrical, no focal deficits Psych-normal affect, normal mood Results & Data Results & Data Vital Signs (Past 12 Hours) Vital Signs Temp Pulse Resp BP Pulse Ox O2 Del Method 12/09/24 08:00 Room Air 12/09/24 08:00 100 H 12/09/24 07:30 36.5 C 106 H 19 120/65 94 Room Air 12/09/24 07:00 36.5 C 112 H 19 110/61 94 Room Air 12/09/24 06:30 36.4 C L 98 H 21 86 L 12/09/24 06:30 131/78 12/09/24 06:30 131/78 12/09/24 06:24 36.4 C L 107 H 18 95 12/09/24 06:03 36.4 C L 95 H 18 96 12/09/24 06:00 125/64 12/09/24 05:54 36.4 C L 102 H 18 92 12/09/24 05:51 36.4 C L 86 19 96 12/09/24 05:45 36.3 C L 99 H 18 95 12/09/24 05:33 36.3 C L 86 23 95 12/09/24 05:30 119/55 L 12/09/24 05:27 36.3 C L 111 H 22 96 12/09/24 05:21 36.3 C L 78 18 94 12/09/24 05:12 36.3 C L 94 H 26 H 95 12/09/24 05:03 36.3 C L 73 18 94 12/09/24 05:00 77/41 L 12/09/24 05:00 77/41 L 12/09/24 04:45 36.2 C L 81 20 95 12/09/24 04:33 36.2 C L 93 H 21 96 12/09/24 04:30 83/44 L 12/09/24 04:30 83/44 L 12/09/24 04:18 36.2 C L 90 20 95 12/09/24 04:03 36.1 C L 101 H 27 H 92 12/09/24 04:00 104/51 L 12/09/24 04:00 104/51 L 12/09/24 03:57 36.1 C L 86 24 94 12/09/24 03:42 36.1 C L 92 H 21 96 12/09/24 03:33 36.1 C L 104 H 21 97 12/09/24 03:30 122/69 12/09/24 03:30 122/69 12/09/24 03:30 122/69 12/09/24 03:30 122/69 12/09/24 02:57 36.1 C L 85 21 96 12/09/24 02:54 36.1 C L 93 H 18 94 12/09/24 02:42 36.1 C L 100 H 19 91 12/09/24 02:31 86/56 L 12/09/24 02:31 86/56 L 12/09/24 02:31 86/56 L 12/09/24 02:30 36.0 C L 99 H 24 93 12/09/24 02:27 36.0 C L 95 H 16 89 L 12/09/24 02:12 36.0 C L 82 18 96 12/09/24 02:03 36.0 C L 82 20 96 12/09/24 02:00 95/47 L 12/09/24 01:57 36.0 C L 88 22 95 12/09/24 01:54 36.0 C L 81 24 96 12/09/24 01:42 36.0 C L 80 19 98 12/09/24 01:30 97/56 L 12/09/24 01:27 35.9 C L 81 20 96 12/09/24 01:24 35.9 C L 76 17 96 Laboratory Results 12/09/24 04:15 12/09/24 04:15 PG Care Time/CCT Total # of Minutes Spent Total Time Spent with Patient: Total time spent is greater than 50% in coordination of care (as documented) at patient's floor/unit and/or counseling patient: Coding Level of Care Code 91653 SUB INP/OBS CARE 235MIN Diagnoses Respiratory failure J96.00 Chronicity: acute Respiratory failure complication: unspecified whether with hypoxia or hypercapnia Septic shock A41.9; R65.21 Hypothermia T68.XXXA Encephalopathy acute G93.40 Kidney stone on right side N20.0 Thrombocytopenia D69.6 Atrial fibrillation, unspecified type I48.91 Atrial fibrillation type: unspecified (1) Respiratory failure Chronicity: acute Respiratory failure complication: unspecified whether with hypoxia or hypercapnia Qualified Code(s): J96.00 - Acute respiratory failure, unspecified whether with hypoxia or hypercapnia (7) Atrial fibrillation Atrial fibrillation type: unspecified Qualified Code(s): I48.91 - Unspecified atrial fibrillation
[2024-12-10 05:17] LABS: Basophils # (auto) 0.01 K/uL (0.00-0.20); Basophils % (auto) 0.1 %; Eosinophils # (auto) 0.22 K/uL (0.00-0.50); Eosinophils % (auto) 3.1 %; Hematocrit (blood only) 26.8 % (37.0-47.0); Hemoglobin 8.8 g/dl (12.0-16.0); Immature Granulocytes # (auto) 0.03 K/uL (0.01-0.20); Immature Granulocytes % (auto) 0.4 %; Lymphocytes # (auto) 0.67 K/uL (1.20-3.40); Lymphocytes % (auto) 9.5 %; Mean Corpuscular Hemoglobin 29.4 pg (25.0-34.0); Mean Corpuscular Hgb Conc 32.8 g/dL (32.0-36.0); Mean Corpuscular Volume 89.6 fL (80.0-100.0); Mean Platelet Volume 12.5 fL (9.4-12.4); Monocytes % (auto) 14.1 %; Neutrophils # (auto) 5.15 K/uL (1.40-6.50); Neutrophils % (auto) 72.8 %; Nucleated RBC # (auto) 0.03 K/uL (0.00-0.12); Nucleated RBC % (auto) 0.4 %; Platelet Count 55 K/uL (130-400); RDW Coefficient of Variation 15.9 % (11.5-14.5); RDW Standard Deviation 51.8 fL (36.4-46.3); Red Blood Count 2.99 M/uL (4.20-5.40); White Blood Count 7.08 K/ul (4.8-10.8)
[2024-12-10 05:31] LABS: BUN Creatinine Ratio 32.6 (10-20); Calcium 8.6 mg/dl (8.6-10.3); Creatinine Clr Calc Pharmacy 32.5 ml/min; Phosphorus 2.7 mg/dl (2.5-4.9); Potassium 4.1 mmol/L (3.5-5.1)
[2024-12-10] MEDS ORDERED: SODIUM BICARB 8.4% INJ 50 MEQ/50 ML SYR IV ONE (07:51)
--- NOTE | 2024-12-10 09:05 | Critical Care Progress Note ---
Date of Service December 10, 2024 Assessment & Plan (1) PJ (acute kidney injury): Plan: Reason Critically Ill: 81-year-old female with ongoing vasoactive medication administration for hypotension PLAN: Neuro: Acute encephalopathy: Suspect metabolic: Resolved Vascular dementia with delirium versus delirium secondary to medical cause: Waxes and wanes, sleep hygiene attempt to normalize the best of our ability -Symptomatology most consistent with Resp: Respiratory insufficiency: Hypercapnic respiratory failure: Resolved -Extubated 12/07 CV: Atrial fibrillation: Long-term anticoagulation on Eliquis -Rapid ventricular response when on Levophed would transition to phenylephrine should patient require vasoactives discontinuing norepinephrine today Pacemaker dependence -Metoprolol on hold Hypotension overnight: Will base treatment on systolic blood pressures which have by enlarge remained adequate -Consider checking lactic acid when blood pressures may be marginal or MAP less than 60 to better evaluate for hypoperfusion -Wean vasoactive's as tolerated -Given 200 mg hydrocortisone x 1 on 12/08 - midodrine 10 mg 3 times daily -Echocardiogram and troponins Fluids/Renal: Acute kidney injury on chronic kidney disease stage III: Resolved (at presumptive baseline) Right-sided hydronephrosis, postop day 1From right ureteral stent Hyperchloremia: Suspect secondary to carrier fluids: Consider transition to D5 Ongoing hematuria -No significant drop in H&H, would continue with systemic anticoagulation ID: Sepsis: Resolved -Urology placed ureteral stent -History of pseudomonal wound infections and MRSA. Initial urine culture from [facility] contained 3 types of organism present no further data to follow, culture obtained with ureteral stent placement reports less than 1000 CFU -Reviewed infectious disease consultation -Cefepime 1 g every 12 hours, 10 to 14-day duration (day 5) -Suspect culture negativity because patient was on ciprofloxacin prior to arrival GI/Nutrition: Heart healthy diet Constipation - Docusate/senna starting today Heme: anemia: At baseline Thrombocytopenia: No obvious bleeding suspect related to underlying disease process Long-term systemic anticoagulation secondary to atrial fibrillation -apixaban DVT prophylaxis: SCDs, apixaban Endocrine: ICU hyperglycemia protocol Vascular access: Peripheral IV Code Status: DO NOT RESUSCITATE in event of cardiac arrest -Discussed with family at bedside and included patient in discussions would proceed with extubation and not reintubate in event of respiratory insufficiency. Family also reports that she had previously filled out a DO NOT RESUSCITATE order. At this point patient would not want to undergo procedures or treatments which would prohibit her from returning to living semiindependently (she lives with a developmentally delayed son who she provides significant care for) Disposition: ICU secondary to vasoactive medication requirement (2) Stage 3b chronic kidney disease: (3) CKD (chronic kidney disease) stage 4, GFR 15-29 ml/min: (4) Atrial fibrillation: (5) Encephalopathy acute: (6) Dementia, vascular with delirium: Admission and Anticipated Discharge Date Admission Date: December 06, 2024 Supervising Physician Co-Signing Physician Notes I have personally spent 35 minutes of critical care time in the direct management of this patient. This is a life/limb threatening event. This includes time spent evaluating patient, direct bedside care, chart review, placing orders, interpretation of diagnostic studies, discussion with consultants, patient, and/or family members regarding treatment decisions, as well as other required patient management activities. This time is exclusive of all separately billable procedures, and teaching time and separate from and in addition to any other critical care service time. Subjective For the second day in a row the patient's MAP decreased overnight to around 50s and Levophed was initiated. Patient continues to in the evening and is pleasantly disoriented in the morning; however she is redirectable. Physical Exam Physical Exam: General: Alert. nontoxic. Skin: Warm, dry, Head: Atraumatic Ears, nose, mouth and throat: airway patent Cardiovascular: Normal peripheral perfusion Respiratory: no respiratory distress Gastrointestinal: Non distended Musculoskeletal: No deformity Results & Data Results & Data Vital Signs (Past 12 Hours) Vital Signs Temp Pulse Resp BP BP Pulse Ox O2 Del Method 12/10/24 08:09 37.5 C 108 H 23 95 Room Air 12/10/24 08:00 108/89 12/10/24 08:00 37 C 12/10/24 08:00 109 H 12/10/24 07:36 37.4 C 120 H 22 93 12/10/24 07:31 105/73 12/10/24 07:05 37.3 C 119 H 22 95 12/10/24 07:02 37.3 C 112 H 39 H 95 12/10/24 07:00 106/61 12/10/24 06:59 37.3 C 100 H 18 95 12/10/24 06:47 37.3 C 113 H 20 94 12/10/24 06:32 37.3 C 114 H 17 97 12/10/24 06:30 96/60 L 12/10/24 06:29 37.3 C 125 H 19 96 12/10/24 06:02 37.3 C 109 H 20 96 12/10/24 06:00 104/50 L 12/10/24 06:00 104/50 L 12/10/24 06:00 104/50 L 12/10/24 05:59 37.3 C 118 H 20 94 12/10/24 05:38 37.4 C 112 H 23 95 12/10/24 05:30 96/62 L 12/10/24 05:11 37.4 C 128 H 19 97 12/10/24 05:00 108/64 12/10/24 04:38 37.4 C 120 H 19 96 12/10/24 04:35 37.4 C 116 H 21 95 12/10/24 04:30 104/64 12/10/24 04:26 37.4 C 118 H 18 99 12/10/24 04:03 37.3 C 115 H 24 93 12/10/24 04:00 119/85 12/10/24 03:57 37.3 C 110 H 19 94 12/10/24 03:30 37.3 C 102 H 22 97 12/10/24 03:30 108/77 12/10/24 03:15 37.2 C 90 21 95 12/10/24 03:00 99/65 L 12/10/24 02:30 104/50 L 12/10/24 02:29 37.1 C 88 19 95 12/10/24 01:33 37.0 C 98 H 21 95 12/10/24 01:30 99/54 L 12/10/24 01:30 99/54 L 12/10/24 01:30 99/54 L 12/10/24 01:18 36.9 C 87 18 96 12/10/24 01:00 36.9 C 85 19 95 12/10/24 01:00 108/56 L 12/10/24 01:00 108/56 L 12/10/24 00:39 36.9 C 86 23 96 12/10/24 00:00 36.8 C 87 20 95 12/10/24 00:00 91/54 L 12/10/24 00:00 91/54 L 12/09/24 23:30 36.7 C 96 H 20 96 12/09/24 23:30 114/60 12/09/24 23:00 103/57 L 12/09/24 22:33 36.6 C 78 18 95 12/09/24 22:30 103/52 L 12/09/24 22:27 36.6 C 80 17 96 12/09/24 22:00 93/52 L 12/09/24 21:00 100/60 12/09/24 20:57 36.8 C 80 21 96 Critical Care Results & Data Vital Signs (Past 12 Hours) Vital Signs Temp Pulse Resp BP BP Pulse Ox O2 Del Method 12/10/24 08:09 37.5 C 108 H 23 95 Room Air 12/10/24 08:00 108/89 12/10/24 08:00 37 C 12/10/24 08:00 109 H 12/10/24 07:36 37.4 C 120 H 22 93 12/10/24 07:31 105/73 12/10/24 07:05 37.3 C 119 H 22 95 12/10/24 07:02 37.3 C 112 H 39 H 95 12/10/24 07:00 106/61 12/10/24 06:59 37.3 C 100 H 18 95 12/10/24 06:47 37.3 C 113 H 20 94 12/10/24 06:32 37.3 C 114 H 17 97 12/10/24 06:30 96/60 L 12/10/24 06:29 37.3 C 125 H 19 96 12/10/24 06:02 37.3 C 109 H 20 96 12/10/24 06:00 104/50 L 12/10/24 06:00 104/50 L 12/10/24 06:00 104/50 L 12/10/24 05:59 37.3 C 118 H 20 94 12/10/24 05:38 37.4 C 112 H 23 95 12/10/24 05:30 96/62 L 12/10/24 05:11 37.4 C 128 H 19 97 12/10/24 05:00 108/64 12/10/24 04:38 37.4 C 120 H 19 96 12/10/24 04:35 37.4 C 116 H 21 95 12/10/24 04:30 104/64 12/10/24 04:26 37.4 C 118 H 18 99 12/10/24 04:03 37.3 C 115 H 24 93 12/10/24 04:00 119/85 12/10/24 03:57 37.3 C 110 H 19 94 12/10/24 03:30 37.3 C 102 H 22 97 12/10/24 03:30 108/77 12/10/24 03:15 37.2 C 90 21 95 12/10/24 03:00 99/65 L 12/10/24 02:30 104/50 L 12/10/24 02:29 37.1 C 88 19 95 12/10/24 01:33 37.0 C 98 H 21 95 12/10/24 01:30 99/54 L 12/10/24 01:30 99/54 L 12/10/24 01:30 99/54 L 12/10/24 01:18 36.9 C 87 18 96 12/10/24 01:00 36.9 C 85 19 95 12/10/24 01:00 108/56 L 12/10/24 01:00 108/56 L 12/10/24 00:39 36.9 C 86 23 96 12/10/24 00:00 36.8 C 87 20 95 12/10/24 00:00 91/54 L 12/10/24 00:00 91/54 L 12/09/24 23:30 36.7 C 96 H 20 96 12/09/24 23:30 114/60 12/09/24 23:00 103/57 L 12/09/24 22:33 36.6 C 78 18 95 12/09/24 22:30 103/52 L 12/09/24 22:27 36.6 C 80 17 96 12/09/24 22:00 93/52 L 12/09/24 21:00 100/60 12/09/24 20:57 36.8 C 80 21 96 Lab & Micro Results (Past 24 Hours) RBC 2.99 M/uL (4.20-5.40) L 12/10/24 WBC 7.08 K/ul (4.8-10.8) 12/10/24 Hgb 8.8 g/dl (12.0-16.0) L 12/10/24 Hct 26.8 % (37.0-47.0) L 12/10/24 MCV 89.6 fL (80.0-100.0) 12/10/24 MCH 29.4 pg (25.0-34.0) 12/10/24 MCHC 32.8 g/dL (32.0-36.0) 12/10/24 RDW Standard Deviation 51.8 fL (36.4-46.3) H 12/10/24 RDW Coefficient of Variation 15.9 % (11.5-14.5) H 12/10/24 Plt Count 55 K/uL (130-400) L 12/10/24 MPV 12.5 fL (9.4-12.4) H 12/10/24 Nucleated Red Blood Cells % (auto) 0.4 % 12/10 Nucleated RBC Absolute Count (auto) 0.03 K/uL (0.00-0.12) 0 12/10/24 Neutrophils (%) (Auto) 72.8 % 12/10/24 Lymphocytes (%) (Auto) 9.5 % 12/10/24 Monocytes # (Auto) 1.00 K/uL (0.11-0.59) H 12/10/24 Eosinophils # (Auto) 0.22 K/uL (0.00-0.50) 12/10/24 Immature Granulocyte % (Auto) 0.4 % 12/10/24 Neutrophils # (Auto) 5.15 K/uL (1.40-6.50) 12/10/24 Lymphocytes # (Auto) 0.67 K/uL (1.20-3.40) L 12/10/24 Monocytes # (Auto) 1.00 K/uL (0.11-0.59) H 12/10/24 Eosinophils # (Auto) 0.22 K/uL (0.00-0.50) 12/10/24 Basophils # (Auto) 0.01 K/uL (0.00-0.20) 12/10/24 Immature Granulocyte # (Auto) 0.03 K/uL (0.01-0.20) 5 Na 143 mmol/L (136-145) 12/10/24 K 4.1 mmol/L (3.5-5.1) 12/10/24 Cl 118 mmol/L (98-107) H 12/10/24 CO2 20 mmol/L (21-32) L 12/10/24 Anion Gap 5 (3-11) 12/10/24 BUN 43 mg/dl (6-23) H 12/10/24 Creatinine 1.32 mg/dl (0.6-1.2) H 12/10/24 BUN/Creatinine Ratio 32.6 (10-20) H 12/10/24 Glu 74 mg/dl (70-99(Fasting)) 12/10/24 Ca 8.6 mg/dl (8.6-10.3) 12/10/24 Phosphorus Level 2.7 mg/dl (2.5-4.9) 12/10/24 Total Bilirubin 1.2 mg/dl (0.2-1.0) H 12/09/24 Direct Bilirubin 0.2 mg/dl (0-0.2) 12/09/24 AST 17 U/L (13-39) 12/09/24 ALT 31 U/L (7-52) 12/09/24 Alkaline Phosphatase 111 U/L (34-104) H 12/09/24 TP 5.7 gm/dl (6.0-8.3) L 12/09/24 Albumin 2.6 gm/dl (3.4-5.0) L 12/09/24 Mg 2.0 mg/dl (1.7-2.4) 12/10/24 04:25 Calcium Level 8.6 mg/dl (8.6-10.3) 12/10/24 04:25 I & O Totals 24 Hours 12/09/24 12/10/24 12/11/24 06:59 06:59 06:59 Intake Total 486.260 / 486.260 80.153 / 80.153 48.183 / 48.183 Output Total 1220 / 1220 1000 / 1000 Balance -733.740 / -733.740 -919.847 / -919.847 48.183 / 48.183 Cumulative 12/06/24 09:55 thru 12/10/24 08:52 Intake Total 5873.610 Output Total 4375 Balance 1498.610 RT Ventilator Mngmt (Last Documented) Ventilator Ordered Settings Ventilator Support Mode CPAP 12/07/24 10:16 Respiratory Rate 23 12/10/24 08:09 Ventilator Tidal Volume 400 12/07/24 08:00 Setting Minute Ventilation 8 12/07/24 10:16 Ventilator Positive Pressure 10 12/07/24 10:16 Support Setting Positive End Expiratory 5 12/07/24 10:16 Pressure Fraction of Inspired Oxygen 25 12/07/24 10:16 Machine Comment Patient arrived from OR and was 12/06/24 15:24 placed on vent with settings as above Ventilator - PT Measurements Respiratory Rate 23 Exhaled Tidal Volume 332 Minute Ventilation 8 Peak Inspiratory Airway 17 Pressure Plateau Pressure 22 Respiratory Cycle Inspiratory: 1:2.5 Expiratory Ratio Inspiratory Phase Time 0.80 End-Tidal CO2 24 Static Lung Compliance 23.47 Dynamic Lung Compliance 27.67 Normal Static Lung Compliance 47.00 Patient Measurements Comment Back from CT scan at this time. Coding Level of Care Code 60152 CRITICAL CARE 1ST 30-74M Diagnoses PJ (acute kidney injury) N17.9 Stage 3b chronic kidney disease N18.32 CKD (chronic kidney disease) stage 4, GFR 15-29 ml/min N18.4 Atrial fibrillation, unspecified type I48.91 Atrial fibrillation type: unspecified Encephalopathy acute G93.40 Dementia, vascular with delirium F01.50; F05 (4) Atrial fibrillation Atrial fibrillation type: unspecified Qualified Code(s): I48.91 - Unspecified atrial fibrillation
[2024-12-10] MEDS: DOCUSATE SODIUM/SENNA 50/8.6MG TAB PO SCH (10:37)
--- NOTE | 2024-12-10 10:43 | Infectious Disease Progress Nt ---
Date of Service December 10, 2024 Assessment & Plan (1) Septic shock: (2) Kidney stone on right side: (3) Right ureteral calculus: (4) PJ (acute kidney injury): Plan 89yo F with h/o CAD w/ prior NV, CKD III, chronic venous insufficiency, afib, s/p PPM, HTN, hypothyroidism who presented on 12/06 with increased generalized weakness. She was seen in the ED on 11/26 with RLE cellulitis and prescribed levofloxacin x 7 days. She was seen in ED again on 12/01 for abnormal renal fu nction on outpatient labs, abx adjusted and planned outpatient follow up. She called EMS on 12/06 due to a week of generalized weakness. En route in the ambulance, patient became unresponsive and went into respiratory arrest. In the ED, she was intubated, started on pressors and admitted to the ICU. She was found to have a right ureteral stone and some c/f perinephric stranding per urology. S/p emergent right cystoscopy with laser lithotripsy, stone extraction, stent placement on 12/06. She has been receiving cefepime. Extubated on 12/07. She has been afebrile (hypothermic on admission), currently on RA. Initial labs with WBC wnl, Cr 1.60, lactate 1.7. AST 57. Elevated troponin. PCT 0.14. UA 6-10 WBC. MRSA screen neg. Blood and urine cx are no growth. RPP negative. CT chest with mild interstitial thickening favoring mild pulmonary edema, lower lung densities and GGO which favor atelectasis. CTH neg. CTAP with right renal stones previously present in renal pelvis have moved into proximal right ureter a/w moderate hydronephrosis, haziness in peripancreatic fat cannot exclude acute pancreatitis; bibasilar opacities likely atelectasis. ID consulted 12/08. TTE with LVEF 60-65%, mild AR and MR. Clinically no complaints. Will keep on cefepime for presumed pyelonephritis. She doesnt c/o urinary symptoms or flank pain. Shes been afebrile though hypothermic initially, no leukocytosis, but is currently on pressors. Its possible the cultures are negative because she was on levofloxacin x 1 week prior to admission. Per chart, it seems she would have been on levofloxacin until at least the 14 or 15th outpatient at a lower dose due to her renal function (patient doesnt know since she was at rehab and they provided the medications). Possible stone could have precipitated worsening with adequate abx coverage. However, unclear why she would continue to require pressors despite abx with otherwise negative cultures. She doesnt have any other complaints and prior w/u has been negative. Duration for a pyelonephritis in this setting would favor 10-14 days. Outpatient regimen would be difficult since we dont have cultures available. Since she was on levofloxacin before, we can continue the same as an outpatient (note QTC is 558 which needs to be rechecked prior to starting this). # Shock on pressors # C/f right pyelonephritis (recent abx use) # Right ureteral calculus s/p lithotripsy and ureteral stent on 12/06 # Hypercapnic respiratory failure extubated 12/07 # PJ on CKD improved # Chronic venous insufficiency no acute erythema/purulence - continue on cefepime 2g IV q12h (renally dosed) - plan for 10-14 dyas of abx for presumed pyelonephritis (start 12/06, 14d is on 12/19) - on discharge could use renally dosed levofloxacin however would repeat EKG to ensure she does not still have a prolonged QTC Will discontinue active follow up at this time. Please do not hesitate to reconsult the Infectious Diseases service as needed. Sarah Massey MD [facility], Division of Infectious Diseases [employer]: [phone] Admission and Anticipated Discharge Date Admission Date: December 06, 2024 Subjective Subsequent visit was provided via telemedicine using two-way real-time interactive telecommunication between the patient and the telemedicine provider. For the duration of the visit, the provider was performing the assessment from a different facility than the patient. This includesuse of bluetooth stethoscope forauscultationperformed by the telepresenter that the telemedicine provider can hear if described in the physical exam. Lead Military Analyst contact information: Please call [facility] Call Center . (Phone Number For Physician Use Only) After establishing a telemedicine visit, patient was: Patient was verified with two unique identifiers, Patient/authorized rep acknowledged consent and understanding and Gave permission to continue telehealth session Time Spent with Patient: Subsequent => 55 min Patient complaining of people constantly coming to her room. Otherwise denies any pain or shortness of breath. Physical Exam Physical Exam: General: Awake, alert, no acute distress HEENT: NC/AT, EOMI, mmm Neck: supple Lungs: respirations non-labored Abdomen: soft, NT/ND Back: ttp on left side Ext: chronic changes on both legs, open wounds, nontender, no purulence Results & Data Vital Signs (Past 12 Hours) Vital Signs Temp Pulse Resp BP Pulse Ox O2 Del Method 12/10/24 08:09 37.5 C 108 H 23 95 Room Air 12/10/24 08:00 108/89 12/10/24 08:00 37 C 12/10/24 08:00 109 H 12/10/24 07:36 37.4 C 120 H 22 93 12/10/24 07:31 105/73 12/10/24 07:05 37.3 C 119 H 22 95 12/10/24 07:02 37.3 C 112 H 39 H 95 12/10/24 07:00 106/61 12/10/24 06:59 37.3 C 100 H 18 95 12/10/24 06:47 37.3 C 113 H 20 94 12/10/24 06:32 37.3 C 114 H 17 97 12/10/24 06:30 96/60 L 12/10/24 06:29 37.3 C 125 H 19 96 12/10/24 06:02 37.3 C 109 H 20 96 12/10/24 06:00 104/50 L 12/10/24 06:00 104/50 L 12/10/24 06:00 104/50 L 12/10/24 05:59 37.3 C 118 H 20 94 12/10/24 05:38 37.4 C 112 H 23 95 12/10/24 05:30 96/62 L 12/10/24 05:11 37.4 C 128 H 19 97 12/10/24 05:00 108/64 12/10/24 04:38 37.4 C 120 H 19 96 12/10/24 04:35 37.4 C 116 H 21 95 12/10/24 04:30 104/64 12/10/24 04:26 37.4 C 118 H 18 99 12/10/24 04:03 37.3 C 115 H 24 93 12/10/24 04:00 119/85 12/10/24 03:57 37.3 C 110 H 19 94 12/10/24 03:30 37.3 C 102 H 22 97 12/10/24 03:30 108/77 12/10/24 03:15 37.2 C 90 21 95 12/10/24 03:00 99/65 L 12/10/24 02:30 104/50 L 12/10/24 02:29 37.1 C 88 19 95 12/10/24 01:33 37.0 C 98 H 21 95 12/10/24 01:30 99/54 L 12/10/24 01:30 99/54 L 12/10/24 01:30 99/54 L 12/10/24 01:18 36.9 C 87 18 96 12/10/24 01:00 36.9 C 85 19 95 12/10/24 01:00 108/56 L 12/10/24 01:00 108/56 L 12/10/24 00:39 36.9 C 86 23 96 12/10/24 00:00 36.8 C 87 20 95 12/10/24 00:00 91/54 L 12/10/24 00:00 91/54 L 12/09/24 23:30 36.7 C 96 H 20 96 12/09/24 23:30 114/60 12/09/24 23:00 103/57 L Laboratory Results Labs reviewed. Diagnostic Findings Imaging reviewed.
[2024-12-10] MEDS: CEFEPIME 2000MG 2,000 MG/20 ML SYR IV SCH (12:22)
[2024-12-10 12:56] LABS: Codeine Urine NEGATIVE ng/mL (<50); Fentanyl, Urine 14.2 ng/mL (<0.5); Hydrocodone Urine NEGATIVE ng/mL (<50); Hydromor Urine NEGATIVE ng/mL (<50); Morphine Urine NEGATIVE ng/mL (<50); Norfentanyl, Urine NEGATIVE ng/mL (<0.5); Norhydrocodone Conf Ur NEGATIVE ng/mL (<50); Noroxycodone Urine NEGATIVE ng/mL (<50); Oxycodone Urine NEGATIVE ng/mL (<50); Oxymorph Urine NEGATIVE ng/mL (<50); medMATCH Fentanyl, Urine DNR; medMATCH Norfentanyl, Urine DNR
[2024-12-10 18:26] LABS: Component 2 DNR; Source RIGHT URETERAL STONE
--- NOTE | 2024-12-10 23:42 | Hospitalist Progress Note ---
Date of Service December 10, 2024 Assessment & Plan (1) Respiratory failure: Plan: Acute hypoxemic respiratory failure present on admission. Now resolved. She was extubated on December 07 Remains on vasopressors discussed with summer law clerk during multi-disciplinary rounds (2) Septic shock: Plan: Present on admission. She remains on low-dose pressor support at this time. Midodrine has been started by the critical care team. She will be moved out of the ICU once off pressor support (3) Hypothermia: Plan: Resolved. (4) Encephalopathy acute: Plan: Acute metabolic encephalopathy present on admission. Now resolved. Supportive care (5) Kidney stone on right side: Plan: Acute, resulting in moderate R-sided hydronephrosis. Urology consultation and recommendations appreciated. On December 06, she underwent cystoscopy with laser lithotripsy of the obstructing stone and placement of a right ureter stent. The patient denies any pain. [facility] catheter is in place with evidence of gross hematuria. This will eventually resolve (6) Thrombocytopenia: Plan: New onset. Appears to be due to sepsis. Serial labs (7) Atrial fibrillation: Plan: Chronic. PPM in place with paced cardiac rhythm currently. Telemetry Plan Will transfer out of ICU once she is off pressor support. OT and PT evaluations have been requested. Admission and Anticipated Discharge Date Admission Date: December 06, 2024 Subjective No new complaints. Physical Exam Physical Exam: General-Patient resting comfortably. HEENT-head atraumatic and normocephalic Results & Data Results & Data Vital Signs (Past 12 Hours) Vital Signs Temp Pulse Resp BP Pulse Ox O2 Del Method 12/10/24 22:15 94/60 L 12/10/24 22:06 37.0 C 82 17 95 12/10/24 22:03 37.0 C 91 H 14 93 12/10/24 22:03 95/44 L 12/10/24 22:03 95/44 L 12/10/24 22:03 95/44 L 12/10/24 22:03 95/44 L 12/10/24 22:00 85/43 L 12/10/24 21:54 37.1 C 98 H 19 95 12/10/24 21:45 82/43 L 12/10/24 21:45 82/43 L 12/10/24 21:45 82/43 L 12/10/24 21:45 82/43 L 12/10/24 21:45 82/43 L 12/10/24 21:45 37.2 C 97 H 18 94 12/10/24 21:36 37.3 C 96 H 21 95 12/10/24 21:00 104/53 L 12/10/24 20:33 37.3 C 86 21 95 12/10/24 20:09 37.3 C 101 H 20 95 12/10/24 20:00 90/54 L 12/10/24 20:00 90/54 L 12/10/24 19:36 37.3 C 93 H 20 96 12/10/24 19:01 105/45 L 12/10/24 19:01 105/45 L 12/10/24 19:00 37.3 C 93 H 17 91 12/10/24 15:36 101 H 12/10/24 15:00 37.5 C 116 H 23 94 Room Air 12/10/24 15:00 80/43 L 12/10/24 14:13 88/53 L 12/10/24 14:03 37.4 C 99 H 18 12/10/24 14:00 89/54 L 12/10/24 13:51 37.4 C 109 H 21 12/10/24 13:03 37.3 C 132 H 22 12/10/24 13:01 122/71 12/10/24 12:57 37.4 C 114 H 25 H 12/10/24 12:09 37.3 C 101 H 21 12/10/24 12:00 107/76 12/10/24 11:54 37.3 C 107 H 23 PG Care Time/CCT Total # of Minutes Spent Total Time Spent with Patient: Total time spent is greater than 50% in coordination of care (as documented) at patient's floor/unit and/or counseling patient: Coding Level of Care Code 12528 SUB INP/OBS CARE 3/50MIN Diagnoses Respiratory failure J96.00 Chronicity: acute Respiratory failure complication: unspecified whether with hypoxia or hypercapnia Septic shock A41.9; R65.21 Hypothermia T68.XXXA Encephalopathy acute G93.40 Kidney stone on right side N20.0 Thrombocytopenia D69.6 Atrial fibrillation, unspecified type I48.91 Atrial fibrillation type: unspecified (1) Respiratory failure Chronicity: acute Respiratory failure complication: unspecified whether with hypoxia or hypercapnia Qualified Code(s): J96.00 - Acute respiratory failure, unspecified whether with hypoxia or hypercapnia (7) Atrial fibrillation Atrial fibrillation type: unspecified Qualified Code(s): I48.91 - Unspecified atrial fibrillation
[2024-12-11] MEDS: COUGH DROP (SUGAR FREE) LOZ 24 LOZ/1 BOX BUCCAL PRN (05:10)
[2024-12-11 05:53] LABS: BUN Creatinine Ratio 33.8 (10-20); Calcium 8.2 mg/dl (8.6-10.3); Creatinine Clr Calc Pharmacy 32.3 ml/min; Magnesium 1.9 mg/dl (1.7-2.4); Phosphorus 2.8 mg/dl (2.5-4.9); Potassium 4.4 mmol/L (3.5-5.1)
[2024-12-11 06:42] LABS: Hematocrit (blood only) 23.2 % (37.0-47.0); Hemoglobin 7.7 g/dl (12.0-16.0); Mean Corpuscular Hemoglobin 29.8 pg (25.0-34.0); Mean Corpuscular Hgb Conc 33.2 g/dL (32.0-36.0); Mean Corpuscular Volume 89.9 fL (80.0-100.0); Mean Platelet Volume 12.2 fL (9.4-12.4); Nucleated RBC # (auto) 0.02 K/uL (0.00-0.12); Nucleated RBC % (auto) 0.4 %; Platelet Count 54 K/uL (130-400); RDW Coefficient of Variation 15.5 % (11.5-14.5); RDW Standard Deviation 50.9 fL (36.4-46.3); Red Blood Count 2.58 M/uL (4.20-5.40); White Blood Count 4.99 K/ul (4.8-10.8)
[2024-12-11 06:47] LABS: Eosinophils # (auto) 0.22 K/uL (0.00-0.50); Eosinophils % (auto) 4.4 %; Immature Granulocytes # (auto) 0.03 K/uL (0.01-0.20); Immature Granulocytes % (auto) 0.6 %; Lymphocytes # (auto) 0.78 K/uL (1.20-3.40); Lymphocytes % (auto) 15.6 %; Monocytes # (auto) 0.85 K/uL (0.11-0.59); Neutrophils # (auto) 3.11 K/uL (1.40-6.50); Neutrophils % (auto) 62.4 %
[2024-12-11] MEDS: METOPROLOL SUCC 50MG EXT REL TAB PO SCH (11:22)
--- NOTE | 2024-12-11 11:46 | Critical Care Progress Note ---
Date of Service December 11, 2024 Assessment & Plan (1) PJ (acute kidney injury): Plan: Reason Critically Ill: 81-year-old female with ongoing vasoactive medication administration for hypotension PLAN: Neuro: Acute encephalopathy: Suspect metabolic: Resolved Vascular dementia with delirium versus delirium secondary to medical cause: Waxes and wanes, sleep hygiene attempt to normalize the best of our ability -Symptomatology most consistent with Resp: Respiratory insufficiency: Hypercapnic respiratory failure: Resolved -Extubated 12/07 CV: Atrial fibrillation: Long-term anticoagulation on Eliquis. Currently on hold due to thrombocytopenia and anemia. Pacemaker dependence -Metoprolol on hold Hemodynamics improving. Negative lactate. -Given 200 mg hydrocortisone x 1 on 12/08 - midodrine 10 mg 3 times daily -Echocardiogram noted with aortic valve sclerosis, mild aortic regurgitation and mild mitral regurgitation. EF 65%. Fluids/Renal: Acute kidney injury on chronic kidney disease stage III: Resolved (at presumptive baseline) Right-sided hydronephrosis, postop day 2 From right ureteral stent Hyperchloremia: Stable. Acidosis improving. Ongoing hematuria -Hemoglobin with a drop of about 1 g. Thrombocytopenia noted. Hold Eliquis. ID: Sepsis: Resolved -Urology placed ureteral stent -History of pseudomonal wound infections and MRSA. Initial urine culture from [facility] contained 3 types of organism present no further data to follow, culture obtained with ureteral stent placement reports less than 1000 CFU -Reviewed infectious disease consultation -Cefepime 1 g every 12 hours, 10 to 14-day duration -Suspect culture negativity because patient was on ciprofloxacin prior to arrival GI/Nutrition: Heart healthy diet Constipation - Docusate/senna starting today Heme: anemia: At baseline Thrombocytopenia: Ongoing hematuria. Long-term systemic anticoagulation secondary to atrial fibrillation -apixaban on hold. DVT prophylaxis: SCDs Endocrine: ICU hyperglycemia protocol Vascular access: Peripheral IV Code Status: DNR/DNI as per previous machine presser discussion with family. Disposition: Medical/surgery with telemetry (2) Stage 3b chronic kidney disease: (3) CKD (chronic kidney disease) stage 4, GFR 15-29 ml/min: (4) Atrial fibrillation: (5) Encephalopathy acute: (6) Dementia, vascular with delirium: (7) Septic shock: (8) Thrombocytopenia: (9) Hematuria: (10) Hypotension: Admission and Anticipated Discharge Date Admission Date: December 06, 2024 Subjective No significant events overnight. Hemodynamically stable. Patient denies any pain, shortness of breath, nausea or vomiting. Discussed on multidisciplinary rounds with nursing and pharmacy. Review of Systems Review of Systems: All systems reviewed & are unremarkable except as noted in HPI & below Physical Exam Physical Exam: General: Alert. nontoxic. Skin: Warm, dry, Head: Atraumatic Ears, nose, mouth and throat: airway patent Cardiovascular: Normal peripheral perfusion. Mild systolic flow murmur. Respiratory: no respiratory distress Gastrointestinal: Non distended Musculoskeletal: No deformity Results & Data Results & Data Vital Signs (Past 12 Hours) Vital Signs Temp Pulse Resp BP Pulse Ox O2 Del Method 12/11/24 11:00 110/59 L 12/11/24 10:57 37.3 C 85 13 93 12/11/24 10:03 37.3 C 90 15 96 12/11/24 10:00 118/63 12/11/24 09:42 37.3 C 83 18 94 12/11/24 09:00 110/64 12/11/24 09:00 110/64 12/11/24 09:00 37.2 C 91 H 22 94 Room Air 12/11/24 08:00 37.1 C 89 16 96 12/11/24 08:00 104/58 L 12/11/24 08:00 Room Air 12/11/24 08:00 36.8 C 12/11/24 07:54 37.1 C 89 18 95 12/11/24 07:30 37.0 C 102 H 20 96 12/11/24 07:12 37.0 C 92 H 19 95 12/11/24 07:00 37.0 C 100 H 13 95 12/11/24 06:30 118/53 L 12/11/24 06:30 118/53 L 12/11/24 06:18 37.0 C 98 H 19 92 12/11/24 06:15 37.0 C 101 H 16 92 12/11/24 06:00 112/60 12/11/24 06:00 112/60 12/11/24 05:51 37.1 C 97 H 18 94 12/11/24 05:36 37.1 C 86 18 94 12/11/24 05:00 103/58 L 12/11/24 04:30 115/55 L 12/11/24 04:30 115/55 L 12/11/24 04:30 115/55 L 12/11/24 04:30 37.1 C 90 19 94 12/11/24 04:03 37.1 C 91 H 18 95 12/11/24 04:00 113/51 L 12/11/24 03:51 37.1 C 100 H 17 96 12/11/24 03:36 37.0 C 99 H 20 95 12/11/24 03:30 114/62 12/11/24 03:30 114/62 12/11/24 03:21 37.0 C 91 H 19 94 12/11/24 03:15 120/62 12/11/24 03:09 36.9 C 99 H 19 93 12/11/24 03:00 110/62 12/11/24 03:00 36.9 C 91 H 20 93 12/11/24 02:39 36.9 C 91 H 19 93 12/11/24 02:30 112/61 12/11/24 02:15 36.8 C 89 22 94 12/11/24 02:15 107/61 12/11/24 02:15 107/61 12/11/24 02:00 107/54 L 12/11/24 02:00 107/54 L 12/11/24 02:00 36.8 C 94 H 17 92 12/11/24 01:45 119/52 L 12/11/24 01:45 36.8 C 88 19 93 12/11/24 01:30 114/55 L 12/11/24 01:30 114/55 L 12/11/24 01:30 114/55 L 12/11/24 01:30 114/55 L 12/11/24 01:30 114/55 L 12/11/24 01:30 36.9 C 92 H 18 94 12/11/24 01:15 112/61 12/11/24 01:15 112/61 12/11/24 01:15 112/61 12/11/24 01:06 36.9 C 96 H 17 94 12/11/24 01:00 116/63 12/11/24 01:00 36.8 C 95 H 20 95 12/11/24 00:54 36.8 C 77 22 95 12/11/24 00:45 109/55 L 12/11/24 00:45 109/55 L 12/11/24 00:45 109/55 L 12/11/24 00:21 36.8 C 88 21 96 12/11/24 00:15 108/67 12/11/24 00:12 36.8 C 92 H 22 95 12/11/24 00:03 36.8 C 82 21 95 12/11/24 00:00 94 H 12/11/24 00:00 115/65 12/11/24 00:00 115/65 12/11/24 00:00 115/65 12/11/24 00:00 115/65 12/10/24 23:57 36.8 C 80 17 96 12/10/24 23:45 114/66 12/10/24 23:45 114/66 Coding Level of Care Code 90882 SUB INP/OBS CARE MIN Diagnoses PJ (acute kidney injury) N17.9 Stage 3b chronic kidney disease N18.32 CKD (chronic kidney disease) stage 4, GFR 15-29 ml/min N18.4 Atrial fibrillation, unspecified type I48.91 Atrial fibrillation type: unspecified Encephalopathy acute G93.40 Dementia, vascular with delirium F01.50; F05 Septic shock A41.9; R65.21 Thrombocytopenia D69.6 Hematuria R31.9 Hypotension I95.9 Hypotension type: unspecified hypotension type (4) Atrial fibrillation Atrial fibrillation type: unspecified Qualified Code(s): I48.91 - Unspecified atrial fibrillation (10) Hypotension Hypotension type: unspecified hypotension type Qualified Code(s): I95.9 - Hypotension, unspecified
--- NOTE | 2024-12-11 14:59 | Hospitalist Progress Note ---
Date of Service December 11, 2024 Assessment & Plan (1) Respiratory failure: Plan: Acute hypoxemic respiratory failure present on admission. Now resolved. She was extubated on December 07 (2) Septic shock: Plan: Present on admission. Pressor support has been weaned off. Metoprolol has been restarted. Cultures remain negative. Cefepime has been discontinued. She is now on midodrine (3) Hypothermia: Plan: Resolved. (4) Encephalopathy acute: Plan: Acute metabolic encephalopathy present on admission. Now resolved. Supportive care (5) Kidney stone on right side: Plan: Acute, resulting in moderate R-sided hydronephrosis. Urology consultation and recommendations appreciated. On December 06, she underwent cystoscopy with laser lithotripsy of the obstructing stone and placement of a right ureter stent. The patient denies any pain. [facility] catheter is in place with evidence of gross hematuria. This should eventually resolve (6) Thrombocytopenia: Plan: New onset. Platelet count is low but stable. Appears to be due to sepsis. Serial labs (7) Atrial fibrillation: Plan: Chronic. PPM in place with paced cardiac rhythm currently. Telemetry. Metoprolol has been restarted Plan Transfer out of the ICU today, December 11. OT and PT assessments have been requested Admission and Anticipated Discharge Date Admission Date: December 06, 2024 Subjective Alert and oriented. No acute distress. She is off pressor support. Eliquis has been placed on hold due to persistent hematuria seen in the [facility] catheter. Hemoglobin is drifted down to 7.7 and will be followed. Platelet count 54,000 but stable. Cefepime has been discontinued. Review of Systems 2 Review of Systems: Constitutionalno fever or chills ENTno blurred vision, no double vision, no epistaxis, no sore throat Respiratoryno cough, no wheezing, no shortness of breath Cardiacno palpitations, no chest pain, no syncope Charanjit nausea, vomiting, diarrhea, melena, hematochezia GUgross hematuria noted in [facility] catheter Musculoskeletalno joint pain, no muscle tenderness Skinno bruising, no rashes, no pruritus Neurono isolated weakness, no paresthesia, no weakness Psychno depression, no anxiety Physical Exam 2 Physical Exam: General-alert and oriented x3, no fever, no chills HEENT-head atraumatic and normocephalic, pupils equal and reactive to light, extraocular muscles intact Neck-no lymphadenopathy or thyromegaly, trachea midline Chest-clear to auscultation. No rales, wheezing or rhonchi Cardiac-regular rate and rhythm, normal S1 and S2 Abdomen-normal bowel sounds, no hepatosplenomegaly Extremities-no cyanosis, clubbing, or edema Neuro-cranial nerves II through XII intact, motor and sensory function within normal limits, strength symmetrical, no focal deficits Psych-normal affect, normal mood Results & Data Results & Data Vital Signs (Past 12 Hours) Vital Signs Temp Pulse Resp BP Pulse Ox O2 Del Method 12/11/24 13:18 37.2 C 85 20 96 12/11/24 13:00 128/49 L 12/11/24 12:57 37.2 C 97 H 23 96 12/11/24 12:42 37.3 C 88 17 96 12/11/24 12:24 37.3 C 89 16 96 12/11/24 12:09 37.3 C 82 18 96 12/11/24 12:00 109/53 L 12/11/24 11:54 37.3 C 92 H 19 96 12/11/24 11:00 110/59 L 12/11/24 10:57 37.3 C 85 13 93 12/11/24 10:03 37.3 C 90 15 96 12/11/24 10:00 118/63 12/11/24 09:42 37.3 C 83 18 94 12/11/24 09:00 110/64 12/11/24 09:00 110/64 12/11/24 09:00 37.2 C 91 H 22 94 Room Air 12/11/24 08:00 37.1 C 89 16 96 12/11/24 08:00 104/58 L 12/11/24 08:00 Room Air 12/11/24 08:00 36.8 C 12/11/24 07:54 37.1 C 89 18 95 12/11/24 07:30 37.0 C 102 H 20 96 12/11/24 07:12 37.0 C 92 H 19 95 12/11/24 07:00 37.0 C 100 H 13 95 12/11/24 06:30 118/53 L 12/11/24 06:30 118/53 L 12/11/24 06:18 37.0 C 98 H 19 92 12/11/24 06:15 37.0 C 101 H 16 92 12/11/24 06:00 112/60 12/11/24 06:00 112/60 12/11/24 05:51 37.1 C 97 H 18 94 12/11/24 05:36 37.1 C 86 18 94 12/11/24 05:00 103/58 L 12/11/24 04:30 115/55 L 12/11/24 04:30 115/55 L 12/11/24 04:30 115/55 L 12/11/24 04:30 37.1 C 90 19 94 12/11/24 04:03 37.1 C 91 H 18 95 12/11/24 04:00 113/51 L 12/11/24 03:51 37.1 C 100 H 17 96 12/11/24 03:36 37.0 C 99 H 20 95 12/11/24 03:30 114/62 12/11/24 03:30 114/62 12/11/24 03:21 37.0 C 91 H 19 94 12/11/24 03:15 120/62 12/11/24 03:09 36.9 C 99 H 19 93 12/11/24 03:00 110/62 12/11/24 03:00 36.9 C 91 H 20 93 Laboratory Results 12/11/24 05:05 12/11/24 05:05 PG Care Time/CCT Total # of Minutes Spent Total Time Spent with Patient: Total time spent is greater than 50% in coordination of care (as documented) at patient's floor/unit and/or counseling patient: Coding Level of Care Code 36873 SUB INP/OBS CARE 3/50MIN Diagnoses Respiratory failure J96.00 Chronicity: acute Respiratory failure complication: unspecified whether with hypoxia or hypercapnia Septic shock A41.9; R65.21 Hypothermia T68.XXXA Encephalopathy acute G93.40 Kidney stone on right side N20.0 Thrombocytopenia D69.6 Atrial fibrillation, unspecified type I48.91 Atrial fibrillation type: unspecified (1) Respiratory failure Chronicity: acute Respiratory failure complication: unspecified whether with hypoxia or hypercapnia Qualified Code(s): J96.00 - Acute respiratory failure, unspecified whether with hypoxia or hypercapnia (7) Atrial fibrillation Atrial fibrillation type: unspecified Qualified Code(s): I48.91 - Unspecified atrial fibrillation
[2024-12-11] MEDS: CEFEPIME 2000MG 2,000 MG/20 ML SYR IV SCH (16:56)
[2024-12-11] MEDS ORDERED: CEFEPIME 2 GM VIAL IV SCH (21:00)
[2024-12-12 09:52] LABS: Calcium 8.5 mg/dl (8.6-10.3); Creatinine Clr Calc Pharmacy 37.8 ml/min
[2024-12-12 09:55] LABS: Basophils # (auto) 0.02 K/uL (0.00-0.20); Basophils % (auto) 0.3 %; Eosinophils # (auto) 0.28 K/uL (0.00-0.50); Eosinophils % (auto) 4.3 %; Hematocrit (blood only) 26.4 % (37.0-47.0); Hemoglobin 8.4 g/dl (12.0-16.0); Immature Granulocytes # (auto) 0.03 K/uL (0.01-0.20); Immature Granulocytes % (auto) 0.5 %; Lymphocytes # (auto) 0.91 K/uL (1.20-3.40); Lymphocytes % (auto) 13.9 %; Mean Corpuscular Hemoglobin 29.4 pg (25.0-34.0); Mean Corpuscular Hgb Conc 31.8 g/dL (32.0-36.0); Mean Corpuscular Volume 92.3 fL (80.0-100.0); Mean Platelet Volume 11.5 fL (9.4-12.4); Monocytes # (auto) 0.98 K/uL (0.11-0.59); Neutrophils # (auto) 4.33 K/uL (1.40-6.50); Nucleated RBC # (auto) 0.02 K/uL (0.00-0.12); Nucleated RBC % (auto) 0.3 %; Platelet Count 73 K/uL (130-400); RDW Coefficient of Variation 15.5 % (11.5-14.5); RDW Standard Deviation 51.7 fL (36.4-46.3); Red Blood Count 2.86 M/uL (4.20-5.40); White Blood Count 6.55 K/ul (4.8-10.8)
--- NOTE | 2024-12-12 11:38 | Urology Progress Note ---
Date of Service December 12, 2024 Assessment & Plan (1) Kidney stone on right side: (2) Right ureteral calculus: (3) Septic shock: (4) Dementia, vascular with delirium: (5) Stage 3b chronic kidney disease: (6) CKD (chronic kidney disease) stage 4, GFR 15-29 ml/min: (7) Traumatic open wound of left lower leg: (8) Traumatic open wound of right lower leg: Plan Patient with episode of severe sepsis altered mental status severe deconditioning acute respiratory failure severe hypotension requiring pressors. 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 Patient also has been dealing with chronic lower extremity wounds and osteomyelitis. Patient has been evaluated and closely monitored through the hospitalist and cri tical care teams. Has seen infectious disease as well who has been monitoring over time and managing antibiotics. Patient has been slowly improving. Had emergent stent placement approximately a week ago at time of admission while dealing with severe sepsis and respiratory failure and multi organ failure. Patient has been undergoing close supportive care and antibiotic management with hydration. Stent placement required treatment of bleeding stone in order to be able to pass wire. Urine from kidney have been assessed. Had numerous stones within the ureter requiring some extraction of stones in order to place stent. Patient had numerous stones in the kidney requiring further intervention. Did discuss with primary team today different options. Will further evaluate and coordinate with family for next Epson management. Did discuss different options including maintaining stent for long-term management of obstruction issues. Discussed possible treatment while patient still inpatient. Discussed potential outpatient treatment as well. With patient's considerable comorbidities and recent severe infection discussed different options and timing of possible intervention. Will plan to continue to evaluate patient. Will have patient be n.p.o. at midnight tonight with plans for possible intervention tomorrow if patient remains stable in order to facilitate treatment of stone to avoid further exacerbation or major change in issues from stone disease. Can also have then close monitoring after procedure. Will need general anesthesia for surgical treatment. Did discuss this extensively with patient. Can adjust or change plans depending on patient's clinical picture. Can reevaluate with plans to intervene what would be safest best for patient moving forward. Extensive conversation with patient family and hospitalist today who are all available in the room on evaluation. Reviewed risk and benefits. Reviewed extensively options moving forward. Multiple questions answered. Will plan to continue to monitor with plans for reevaluation in the morning and possible intervention tomorrow for clearing of stones. Discussed patient's ongoing issues with gross hematuria. Does appear to be dark purple within the bag and tubing may be old blood passing through. Discussed patient's blood thinner. Will plan to continue to monitor. Will continue with broad-spectrum antibiotic coverage and plan for possible intervention tomorrow with right ureteroscopy and stone treatment. Admission and Anticipated Discharge Date Admission Date: December 06, 2024 Subjective Postop from stent placement for obstruction issues. 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 Patient had presented with severe sepsis altered mental status delirium and acute respiratory failure with severe deconditioning. Patient also has chronic leg wounds has been dealing with chronic infection issues. Has been followed by critical care and hospitalist team. Also has been evaluated by infectious disease. Has been undergoing antibiotic management and supportive care. Had emergent stent placed on day of admission secondary to severe sepsis with severe obstruction. Patient has been tolerating stent. Has noticed some frequency and urgency. Has not had severe pain in the back and flank. Does have occasional burning and irritation. No severe episodes or major changes. No new nausea or vomiting. Had tolerated anesthesia without major problems Patient is stabilizing with vital signs stabilizing. Has been dealing with severe hypotension which has improved. Review of Systems Review of Systems: All systems reviewed & are unremarkable except as noted in HPI & below Physical Exam Physical Exam: General: Alert in no acute distress. HEENT: Normocephalic Atraumatic. Inspection normal. Cranial Nerves 2-12 Grossly intact. Normal inspection of face. Normal inspection of neck. Psychologic: Normal affect. Respiratory: Nonlabored. No use of accessory muscles. No tachypnea or dyspnea. Cardiovascular: No tachycardia Skin: [place] and Dry. No rashes or visible lesions. Extremities/Lymphatics: No edema Abdomen: Soft Non-distended. No rebound or guarding. Results & Data Vital Signs (Past 12 Hours) Vital Signs Temp Pulse Pulse Resp BP Pulse Ox O2 Del Method 12/12/24 08:01 36.6 C 82 16 106/60 95 Room Air 12/12/24 07:38 94 H 12/12/24 03:31 36.3 C L 83 18 121/69 97 Room Air PG Care Time/CCT Total # of Minutes Spent Total Time Spent with Patient: Total time spent is greater than 50% in coordination of care (as documented) at patient's floor/unit and/or counseling patient: Coding Level of Care Code 08887 SUB INP/OBS CARE 3/50MIN Diagnoses Kidney stone on right side N20.0 Right ureteral calculus N20.1 Septic shock A41.9; R65.21 Dementia, vascular with delirium F01.50; F05 Stage 3b chronic kidney disease N18.32 CKD (chronic kidney disease) stage 4, GFR 15-29 ml/min N18.4 Traumatic open wound of left lower leg S81.802A Traumatic open wound of right lower leg S81.801A
--- NOTE | 2024-12-12 14:44 | Hospitalist Progress Note ---
Date of Service December 12, 2024 Assessment & Plan (1) Respiratory failure: Plan: Acute hypoxemic respiratory failure present on admission. Now resolved. She was extubated on December 07. She is now on room air and stable (2) Septic shock: Plan: Present on admission. Pressor support has been weaned off. Metoprolol has been restarted. Cultures remain negative. Cefepime has been discontinued. She is now on midodrine (3) Hypothermia: Plan: Resolved. (4) Encephalopathy acute: Plan: Acute metabolic encephalopathy present on admission. Now resolved. Supportive care (5) Kidney stone on right side: Plan: Acute, resulting in moderate R-sided hydronephrosis. Urology consultation and recommendations appreciated. On December 06, she underwent cystoscopy with laser lithotripsy of the obstructing stone and placement of a right ureter stent. The patient denies any pain. [facility] catheter is in place with evidence of gross hematuria although the blood in the urine now looks old. She hopefully will undergo another procedure tomorrow, December 13, to complete stone extraction from the ureter. (6) Thrombocytopenia: Plan: New onset. Platelet count is low but improving. It could have been a consumptive etiology or possibly related to sepsis. Serial labs (7) Atrial fibrillation: Plan: Chronic. PPM in place with paced cardiac rhythm currently. Telemetry. Metoprolol has been restarted Plan Hopeful cystoscopy procedure tomorrow, December 13, if she remains stable to complete the stone extraction. Continue OT and PT while hospitalized. She probably will need temporary placement before she can return home. Admission and Anticipated Discharge Date Admission Date: December 06, 2024 Subjective Alert and oriented. No new problems. Creatinine has improved to 1.1. Hemoglobin 8.4 and stable despite continued hematuria but the blood looks old. Urine and blood cultures remain negative. Cefepime has been discontinued after 6 days of therapy. Platelet count has improved to 73,000. Urology, Dr. Chalino Cruz, is planning on removing the ureteral stones tomorrow, December 13. I agree with this approach since the patient appears to be stable and Eliquis has been on hold for several days. Renal function has improved and platelet count has improved to 73,000. Review of Systems 2 Review of Systems: Constitutionalno fever or chills ENTno blurred vision, no double vision, no epistaxis, no sore throat Respiratoryno cough, no wheezing, no shortness of breath Cardiacno palpitations, no chest pain, no syncope Charanjit nausea, vomiting, diarrhea, melena, hematochezia GUgross hematuria noted in [facility] catheter Musculoskeletalno joint pain, no muscle tenderness Skinno bruising, no rashes, no pruritus Neurono isolated weakness, no paresthesia, no weakness Psychno depression, no anxiety Physical Exam 2 Physical Exam: General-alert and oriented x3, no fever, no chills HEENT-head atraumatic and normocephalic, pupils equal and reactive to light, extraocular muscles intact Neck-no lymphadenopathy or thyromegaly, trachea midline Chest-clear to auscultation. No rales, wheezing or rhonchi Cardiac-regular rate and rhythm, normal S1 and S2 Abdomen-normal bowel sounds, no hepatosplenomegaly Extremities-no cyanosis, clubbing, or edema Neuro-cranial nerves II through XII intact, motor and sensory function within normal limits, strength symmetrical, no focal deficits Psych-normal affect, normal mood Results & Data Results & Data Vital Signs (Past 12 Hours) Vital Signs Temp Pulse Pulse Resp BP Pulse Ox O2 Del Method 12/12/24 14:15 89 12/12/24 12:10 36.6 C 62 16 109/68 95 Room Air 12/12/24 08:01 36.6 C 82 16 106/60 95 Room Air 12/12/24 07:38 94 H 12/12/24 03:31 36.3 C L 83 18 121/69 97 Room Air Laboratory Results 12/12/24 09:15 12/12/24 09:15 PG Care Time/CCT Total # of Minutes Spent Total Time Spent with Patient: Total time spent is greater than 50% in coordination of care (as documented) at patient's floor/unit and/or counseling patient: Coding Level of Care Code 89208 SUB INP/OBS CARE 3/50MIN Diagnoses Respiratory failure J96.00 Chronicity: acute Respiratory failure complication: unspecified whether with hypoxia or hypercapnia Septic shock A41.9; R65.21 Hypothermia T68.XXXA Encephalopathy acute G93.40 Kidney stone on right side N20.0 Thrombocytopenia D69.6 Atrial fibrillation, unspecified type I48.91 Atrial fibrillation type: unspecified (1) Respiratory failure Chronicity: acute Respiratory failure complication: unspecified whether with hypoxia or hypercapnia Qualified Code(s): J96.00 - Acute respiratory failure, unspecified whether with hypoxia or hypercapnia (7) Atrial fibrillation Atrial fibrillation type: unspecified Qualified Code(s): I48.91 - Unspecified atrial fibrillation
[2024-12-12] MEDS ORDERED: MICONAZOLE NITRATE POWDER 85 GM EXT PRN (16:24)
[2024-12-13 06:50] LABS: Hematocrit (blood only) 23.6 % (37.0-47.0); Hemoglobin 7.7 g/dl (12.0-16.0); Mean Corpuscular Hgb Conc 32.6 g/dL (32.0-36.0); Mean Corpuscular Volume 91.8 fL (80.0-100.0); Mean Platelet Volume 11.5 fL (9.4-12.4); Platelet Count 79 K/uL (130-400); RDW Coefficient of Variation 15.6 % (11.5-14.5); RDW Standard Deviation 51.8 fL (36.4-46.3); Red Blood Count 2.57 M/uL (4.20-5.40); White Blood Count 6.64 K/ul (4.8-10.8)
[2024-12-13 07:01] LABS: BUN Creatinine Ratio 32.4 (10-20); Calcium 8.3 mg/dl (8.6-10.3); Creatinine Clr Calc Pharmacy 37.8 ml/min; Potassium 4.3 mmol/L (3.5-5.1)
--- NOTE | 2024-12-13 07:20 | Hospitalist Progress Note ---
Date of Service December 13, 2024 Assessment & Plan (1) Hematuria: (2) Hypothermia: (3) Septic shock: (4) Right ureteral calculus: (5) Kidney stone on right side: (6) Respiratory failure: (7) Encephalopathy acute: (8) Venous stasis dermatitis: (9) PJ (acute kidney injury): (10) Stage 3b chronic kidney disease: (11) CKD (chronic kidney disease) stage 4, GFR 15-29 ml/min: (12) Atrial fibrillation: (13) Pacemaker: Plan 1) Respiratory failure: -Resolved -Acute hypoxemic respiratory failure present on admission. -Extubated on December 07. - She is now on room air and saturating well (2) Septic shock: -Present on admission. - Pressor support has been weaned off. -Metoprolol has been restarted. - Cultures remain negative. - Cefepime has been discontinued. - She is now on midodrine (3) Hypothermia: -Resolved. (4) Acute Metabolic Encephalopathy -Resolved (5) Kidney stone on right side: -Acute, resulting in moderate R-sided hydronephrosis. - Urology on board - On December 06, she underwent cystoscopy with laser lithotripsy of the obstructing stone and placement of a right ureter stent. The patient denies any pain. Capone catheter is in place with evidence of gross hematuria. - Cystoscopy with Rt Laser Lithotripsy was done. Numerous stone and fragments in rt renal pelvis. 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 Old stent was removed and new 6Fr Double J stent was placed. 18 Fr Silicon Catheter was used. Consider trial catheter remove in few days. Maintain stent approx for 2 to 3 weeks with removal in office. (6) Thrombocytopenia: - Improving. Today: 80 - Likely consumptive or because of sepsis (7) Atrial fibrillation: -Chronic. -Telemetry. -Metoprolol has been restarted VTE prophylaxis: Eliquis on hold due to hematuria and procedure Code: DNR/DNI Dispo: Med/Surg with Tele Admission and Anticipated Discharge Date Admission Date: December 06, 2024 Supervising Physician Co-Signing Physician Notes I personally examined the patient and verified all nino points of history and exam, discussed case, and agree with decision making with Dr Buchanan feeling well, not confused, no significant pain. for OR later today for stone management. answered all questions to the best of my ability and to pt/dtr's satisfaction. dtr also noted she would need a note for work given that she has been here to support her mom vitals noted nad heent nc at mmm breathing unlabored no accessory muscles good effort skin no rashes no pallor or icterus neuro no focal deficits ureterolithiasis/sepsis/presumed pyelonephritis - doing better, off abx, for cysto/lithotripsy today hopefully encompass kierra otherwise as above Hazel Garcia is a 89 Y O Female with PMH of Atrial Fibrillation Under Pacemaker, Stage 4 CKD. She presented to ER with altered mental status, unresponsive to stimuli and respiratory arrest. She was admitted for Respiratory Failure, Acute Metabolic Encephalopathy, Septic Shock and Hypothermia. Overnight events: Slept well. No any overnight events Ongoing Symptoms: On evaluation this morning, patient mentioned that she feels fine. She is well oriented to time, place and person. She is still having hematuria. Denies abdominal pain, headache, dizziness , chest pain. New concerns: No any Review of Systems Review of Systems: As per HPI Physical Exam Constitutional: WD/WN, vitals as above well developed; no acute distress Eyes: PERRL, conjunctivae normal, anicteric sclerae ENMT: external ear and nose normal, oropharynx normal Ears: no hearing impairment Neck: trachea midline, no thyromegaly trachea midline Respiratory: normal respiratory effort, lungs clear to auscultation normal respiratory effort and + respiratory distress; no labored breathing and no retractions Auscultation: lungs clear to auscultation bilaterally Cardiovascular: RRR, no murmur, no edema Rate/Rhythm: regular rate and regular rhythm Chest (Breasts): normal inspection/palpation of breasts Chest: normal inspection of chest Results & Data Results & Data Vital Signs (Past 12 Hours) Vital Signs Temp Pulse Pulse Resp BP Pulse Ox O2 Del Method 12/13/24 03:41 36.7 C 83 16 124/79 96 Room Air 12/12/24 23:40 36.5 C 78 18 117/75 97 Room Air 12/12/24 22:00 69 12/12/24 21:55 Room Air 12/12/24 20:13 36.7 C 78 18 116/67 96 Room Air (6) Respiratory failure Chronicity: acute Respiratory failure complication: unspecified whether with hypoxia or hypercapnia Qualified Code(s): J96.00 - Acute respiratory failure, unspecified whether with hypoxia or hypercapnia (12) Atrial fibrillation Atrial fibrillation type: unspecified Qualified Code(s): I48.91 - Unspecified atrial fibrillation
[2024-12-13 07:42] LABS: Basophils # (auto) 0.02 K/uL (0.00-0.20); Basophils % (auto) 0.3 %; Eosinophils # (auto) 0.27 K/uL (0.00-0.50); Eosinophils % (auto) 4.1 %; Hypersegmented Neutrophils 1+; Immature Granulocytes # (auto) 0.02 K/uL (0.01-0.20); Immature Granulocytes % (auto) 0.3 %; Lymphocytes # (auto) 0.96 K/uL (1.20-3.40); Lymphocytes % (auto) 14.5 %; Monocytes # (auto) 0.89 K/uL (0.11-0.59); Monocytes % (auto) 13.4 %; Neutrophils # (auto) 4.48 K/uL (1.40-6.50); Neutrophils % (auto) 67.4 %; Polychromasia 1+
--- NOTE | 2024-12-13 09:53 | Urology Progress Note ---
Date of Service December 13, 2024 Assessment & Plan (1) Right ureteral calculus: Plan: 89-year-old female admitted for septic shock secondary to obstructing right ureteral calculi. Patient with episode of severe sepsis, acute respiratory failure, and severe hyp otension requiring pressors She is status post right ureteral stent placement on 12/06/2024 Afebrile, hemodynamically stable Labs reviewedcreatinine 1.11, WBC 6.64, hemoglobin 7.7 Urine and blood cultures with no growth Patient received course of IV cefepime Discussed definitive stone treatment with cystoscopy, right ureteroscopy, laser lithotripsy and right stent exchange as previously discussed with Dr. Cruz Patient would like to proceed with surgical intervention today Daughter at bedside Discussed surgical intervention with attending hospitalist, Dr. Scott to proceed today from medical standpoint Risk and benefits of procedure to be reviewed with patient by Dr. Cruz We will cover with preoperative antibiotic Keep n.p.o. for procedure Continue supportive care, medical management per hospital medicine service Attending note: Patient independently assessed, examined, interviewed, and evaluated. Agree with note as above. Patient's vitals and labs were all reviewed. Pertinent values in the HPI and plan section. Imaging was reviewed interpreted by myself. Patient had severe obstruction secondary to bleeding stone with Steinstrasse type picture causing severe obstruction. Patient has been recovering and is on broad-spectrum antibiotics and being monitored closely by the hospitalist team. Agree with read. Vitals were reviewed. Discussed findings extensively with patient and family. Reviewed with nurse practitioner as well as consulting physicians/team. Patient's complicated medical and surgical history was reviewed and summarized above. Patient's surgical, medical, social, and family history were all reviewed with pertinent values as above. Discussed patient's current diagnosis as well as concerns and issues. Reviewed different options moving forward. Discussed potential risks and benefits as well as possible options and concerns. Reviewed potential surgical options and interventions. Discussed potential issues and concerns related to intervention. Risk and benefits were discussed extensively with patient and any available family. Discussed potential risks related to anesthesia. Discussed risks of bleeding infection and injury. Extensive conversation yesterday as well as this morning about different risk benefits expectations and recovery. Due to very large stone burden with severe obstruction will likely need intervention on stones at some point. Could consider chronic stents however due to him risk of infections and severe limitations with bleeding and other issues patient is extremely active. Reviewed extensively risks of under and going anesthesia. Discussed monitoring after procedure as patient is currently hospitalized would likely be a safe window to try to move forward with general anesthetic and stone treatment. Patient and family were agreeable. Extensive conversation of risk and benefits. Risks and benefits discussed at length for procedure. These include bleeding, infection, injury to surrounding tissues or organs, and risks associated with anesthesia. Patient states understanding and agrees to proceed. Will sign consent and schedule. Plan for cystoscopy with right ureteroscopy and stone treatment. Admission and Anticipated Discharge Date Admission Date: December 06, 2024 Subjective Patient seen and examined at bedside this morning. She is awake and sitting up in bed. No acute issues overnight. Denies flank or abdominal pain. Denies nausea, vomiting, fever or chills. Capone intact. Review of Systems Constitutional: as per Subjective / HPI Gastrointestinal: as per Subjective / HPI Genitourinary: as per Subjective / HPI Physical Exam Constitutional: well developed and well nourished; no acute distress Respiratory: normal respiratory effort; no respiratory distress and no labored breathing Gastrointestinal (Abdomen): Inspection/Auscultation: abdomen normal to inspection Musculoskeletal: Head/Neck/Chest: normocephalic Neurologic: moves all extremities and awake Psychiatric: Orientation: alert and oriented x 3 Genitourinary: Capone draining transparent dark steele urine, no clots Results & Data Vital Signs (Past 12 Hours) Vital Signs Temp Pulse Pulse Resp BP Pulse Ox O2 Del Method 12/13/24 07:50 36.3 C L 94 H 18 150/68 H 96 Room Air 12/13/24 07:14 99 H 12/13/24 03:41 36.7 C 83 16 124/79 96 Room Air 12/12/24 23:40 36.5 C 78 18 117/75 97 Room Air 12/12/24 22:00 69 12/12/24 21:55 Room Air PG Care Time/CCT Total # of Minutes Spent Total Time Spent with Patient: Total time spent is greater than 50% in coordination of care (as documented) at patient's floor/unit and/or counseling patient: Coding Level of Care Code 78682 SUB INP/OBS CARE 2/35MIN Diagnoses Right ureteral calculus N20.1
[2024-12-13] MEDS ORDERED: LIDOCAINE 2% 20 MG/ML 5 ML SYR IV ONE (11:49)
[2024-12-13] MEDS ORDERED: fentaNYL citrate PF 100 MCG/2 ML VIAL ONE (11:49)
[2024-12-13] MEDS ORDERED: PROPOFOL IV EMULSION 10 MG/ML 20 ML VIAL IV ONE (11:50)
[2024-12-13] MEDS: LACTATED RINGER'S 1,000 ML IV SCH (12:06)
[2024-12-13] MEDS ORDERED: ROCURONIUM BROMIDE 10 MG/ML 5 ML VIAL IV ONE (12:41)
[2024-12-13] MEDS: CEFEPIME 2000MG 2,000 MG/20 ML SYR IV STA (13:05)
--- NOTE | 2024-12-13 13:07 | Anesthesiology Consultation ---
Date of Service December 13, 2024 Assessment & Plan Chart Review Chart Review: Acceptable Risk for Surgery and Patient NOT seen in Pre Admission Testing Consults Requested none ASA ASA4 Proposed Anesthesia Anesthesia Type: General Risk / Benefits Reviewed With: PT / POA / Parent / Guardian, Accepts Plan and Informed Consent Obtained History Surgery Operation Date: 12/06/24 09:55 Proposed Procedures p Cystoscopy, Right Stent Placement - Chalino Cruz DO Operation Date: 12/13/24 07:00 Proposed Procedures p Cystoscopy Laser Lithotripsy Right Stent Placement - Chalino Cruz DO Height/Weight Height: 5 ft 6 in Weight: 82.1 kg Allergies Allergy/AdvReac Type Severity Reaction Status Date / Time latex Allergy Unknown Rash Verified 11/30/24 08:54 Penicillins Allergy Unknown Rash, Verified 11/30/24 08:54 heart palpitations Sulfa (Sulfonamide Allergy Unknown rash Verified 11/30/24 08:54 Antibiotics) cephalexin AdvReac Unknown Diarrhea Verified 11/30/24 08:54 Medications Home Medications Medication Instructions Recorded Confirmed Last Taken dronedarone 400 mg tablet (Multaq) 400 mg PO BID 06/19/18 12/06/24 01/28/24 11:00 multivitamin 1 tab PO QAM 06/19/18 12/06/24 01/27/24 nitroglycerin 0.4 mg sublingual 0.4 mg sublingual Q5M PRN Chest 06/19/18 12/06/24 06/23/20 tablet (Nitrostat) Pain biotin 10 mg tablet 10 mg PO QAM 04/05/19 12/06/24 01/27/24 acetaminophen 500 mg tablet 1,000 mg PO Q6H PRN Pain 08/31/22 12/06/24 01/27/24 (Tylenol Extra Strength) cholecalciferol (vitamin D3) 125 125 mcg PO QAM 08/31/22 12/06/24 01/27/24 mcg (5,000 unit) tablet (Vitamin D3) Lift Chair #1 ea 09/27/22 12/11/24 Unknown bromelains 500 mg tablet 500 mg PO DAILY 03/10/24 12/06/24 Unknown apixaban 2.5 mg tablet (Eliquis) 2.5 mg PO BID 06/01/24 12/06/24 Unknown lisinopril 5 mg tablet 5 mg PO DAILY #90 tabs 12/18/24 02/17/25 Unknown gentamicin 0.1 % topical ointment 1 applic topical UD 12/06/24 12/06/24 Unknown hydrochlorothiazide 12.5 mg tablet 12.5 mg PO UD 12/06/24 12/06/24 Unknown metoprolol succinate 50 mg 50 mg PO QAM 12/06/24 12/06/24 Unknown tablet,extended release 24 hr (Toprol XL) Active Medications Generic Name Dose Route Start Last Admin Trade Name Freq PRN Reason Stop Dose Admin Apixaban 2.5 mg 12/08/24 09:00 12/11/24 08:19 Apixaban 2.5 Mg Tab PO 01/07/25 08:59 Not Given BID SHAHEEN Lactated Ringer's 1,000 mls @ 15 mls/hr 12/13/24 12:15 12/13/24 13:02 Lr IV 12/14/24 12:14 Infused .Q24H SHAHEEN Infusion Menthol 1 edouard 12/11/24 04:13 12/11/24 05:10 Cough Drop (Sugar Free) Edouard 24 Edouard/1 Box BUCCAL 01/10/25 04:12 1 edouard NOW PRN Administration Sore Throat Metoprolol Succinate 50 mg 12/11/24 10:25 12/13/24 08:38 Metoprolol Succ 50mg Ext Rel Tab PO 01/10/25 10:24 50 mg QAM SHAHEEN Administration Midodrine 10 mg 12/08/24 12:00 12/13/24 08:38 Midodrine Hcl 10 Mg Tab PO 01/07/25 11:59 10 mg TID@0800,1200,1700 SHAHEEN Administration Senna/Docusate Sodium 1 tab 12/10/24 09:45 12/13/24 08:43 Docusate Sodium/Senna 50/8.6mg Tab PO 01/09/25 09:44 1 tab QAM SHAHEEN Administration Thiamine HCl 100 mg 12/09/24 09:00 12/13/24 08:38 Thiamine Hcl 100 Mg Tab PO 01/08/25 08:59 100 mg DAILY SHAHEEN Administration NPO Date Last Intake of Fluids: 12/12/24 Time Last Intake of Fluids: 21:30 Date Last Intake of Solids: 12/12/24 Time Last Intake of Solids: 17:00 Past Medical History Medical History History of blood transfusion 11/2023 Osteomyelitis of toe of right foot hx / sx intervention Gastric ulcer reason for upcoming procedure / follow up History of recent hospitalization 11/2023 kyrie garcia - stomach ulcer 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 dressing changes at wound clinich on Tuesdays and home nursing on Fridays History of basal cell carcinoma HTN (hypertension) Pacemaker placed 2006 - fib -- adicate timeadstronic -- last check 10/2022 - upcoming 01/16/24 History of myocardial infarction 1990s Slow to wake up after anesthesia denies trouble coming out of /pt reports "just no strong dosages, minimal always works" Osteoarthritis Osteopenia Multinodular goiter denies Hyperthyroidism hx Atrial fibrillation, chronic on warfarin. Follows with René Block PA-C. no hx cardioversion. Chronic venous insufficiency Exercise / Class Metabolic Activity III < 4 Walking/Shop/Light housework Past Family History Family History Mother Cardiac disorder Father Hypertension Denies family history of Ovarian cancer Prostate cancer Myocardial infarction Breast cancer Colorectal cancer Past Surgical History Surgical History History of endoscopy 11/2023 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 H/O excision of mass (01/29/23) Scalp Mass Excision(Right) - Red Farfan MD, FACS Status post ablation of incompetent vein using laser hx 2 ablations History of excision of lesion (01/23/11) Wide excision lesion left lower extremity with full thickness skin graft. Dr. Farfan S/P Mohs surgery for basal cell carcinoma History of tonsillectomy and adenoidectomy History of arthroscopy of knee History of cataract surgery Past Anesthesia History No Hx of Anesthesia Complications and No Family Hx of Anesthesia Complications History of PONV No Hx of PONV and No Hx of Motion Sickness Social History Smoking Status: Never smoker Hx Alcohol Use: No Hx Substance Use: No substance use type: does not use Review of Systems ROS Unobtainable: All systems reviewed & are unremarkable except as noted in HPI & below Physical Exam Vital Signs Last Vital Signs Temp 37.1 C 12/13/24 12:01 Pulse 83 12/13/24 12:01 Resp 20 12/13/24 12:01 BP 117/70 12/13/24 12:01 Pulse Ox 97 12/13/24 12:01 O2 Del Method Room Air 12/13/24 12:01 O2 Flow Rate 2 12/07/24 19:13 FiO2 25 12/07/24 10:16 ENMT Mouth: no TMJ abnormality Thyromental Distance: > or= 3.5 Finger Breadths Mallampati Class: II Neck normal visual inspection and trachea midline; neck extension not limited Respiratory normal respiratory effort Auscultation: lungs clear to auscultation bilaterally Cardiovascular Rate/Rhythm: regular rate and regular rhythm Heart Sounds: no murmur Musculoskeletal Spine: normal cervical ROM Extremities: full ROM of extremities Neurologic moves all extremities Psychiatric Orientation: alert and oriented x 3 Testing Laboratory Results 12/13/24 06:00 12/13/24 06:00 PT 11.4 Seconds (9.0-12.0) 12/07/24 09:59 INR 1.1 (0.9-1.1) 12/07/24 09:59 APTT 37 Seconds (21-31) H 12/07/24 09:59 Urine Color Yellow 12/06/24 11:59 Urine Appearance Cloudy (Clear) A 12/06/24 11:59 Urine pH 5.0 (4.5-7.5) 12/06/24 11:59 Ur Specific Martin 1.017 (1.000-1.030) 12/06/24 11:59 Urine Protein 2+ (Negative) H 12/06/24 11:59 Urine Glucose (UA) Negative (Negative) 12/06/24 11:59 Urine Ketones Negative (Negative) 12/06/24 11:59 Urine Nitrite Negative (Negative) 12/06/24 11:59 Ur Leukocyte Esterase Trace (Negative) H 12/06/24 11:59 Urine WBC (Auto) 6-10 /hpf (0-5) H 12/06/24 11:59 Urine RBC (Auto) 3-5 /hpf (0-2) H 12/06/24 11:59 U Hyaline Cast (Auto) >20 /lpf (0-2) H 12/06/24 11:59 U Epithel Cells (Auto) 6-10 /hpf (0-2) H 12/06/24 11:59 Urine Bacteria (Auto) 1+ (None Seen) H 12/06/24 11:59 12/06/24 11:50 Aerobic Blood Culture - Final Blood No growth in Aerobic bottle after 5 days. Anaerobic Blood Culture - Final No growth in Anaerobic bottle after 5 days. 12/06/24 12:01 Aerobic Blood Culture - Final Blood No growth in Aerobic bottle after 5 days. Anaerobic Blood Culture - Final No growth in Anaerobic bottle after 5 days. 12/06/24 14:47 Urine Culture - Final Urine,Kidney No growth - less than 1,000 colonies/mL. 12/06/24 11:59 Urine Culture - Final Urine,Indwelling Cath No growth - less than 1,000 colonies/mL. 12/13/24 11:51 POC Glucose 83 Electrocardiogram Date: 12/06/24 Ventricular-paced rhythm with occasional AV dual-paced complexes Abnormal ECG When compared with ECG of 01-Dec-2024 10:55, Electronic ventricular pacemaker has replaced Electronic atrial pacemaker Confirmed by Toño Gale ([id number]) on 12/06/2024 1:09:57 PM Echocardiogram Date: 12/09/24 EF: 65 LV Function: normal
[2024-12-13] MEDS ORDERED: ATROPINE SULFATE 0.1 MG/ML 10ML SYR IV PRN (13:08)
[2024-12-13] MEDS ORDERED: ePHEDrine sulfate 50 MG/ML AMP IV PRN (13:08)
[2024-12-13] MEDS ORDERED: fentaNYL citrate PF 100 MCG/2 ML VIAL IV PRN (13:08)
[2024-12-13] MEDS ORDERED: ONDANSETRON INJ 2 MG/ML 2 ML VIAL IV PRN (13:08)
[2024-12-13] MEDS ORDERED: PHENYLEPHRINE 100MCG/ML 5ML SYR ONE (13:30)
[2024-12-13] MEDS ORDERED: SUGAMMADEX SODIUM 200 MG/2 ML VIAL IV ONE (13:30)
[2024-12-13] MEDS ORDERED: DEXAMETHASONE SOD INJ 4 MG/ML VIAL ONE (13:30)
[2024-12-13] MEDS ORDERED: ONDANSETRON INJ 2 MG/ML 2 ML VIAL ONE (13:30)
[2024-12-13] MEDS ORDERED: KETOROLAC 30 MG/ML VIAL ONE (13:51)
[2024-12-13] MEDS: DIATRIZOATE MEGLUMINE 30% 100ML VIAL INSTIL PRN (13:54)
--- NOTE | 2024-12-13 14:03 | Operative Report ---
[facility] Post Operative Report Pre & Post Diagnosis Operation Date: 12/13/24 07:00 Pre-Op Diagnosis: Kidney stone on right side, Right ureteral calculus Post-Op Diagnosis: Kidney stone on right side, Right ureteral calculus I identified the patient and participated in the time-out.: Yes Procedure Operation Date: 12/13/24 07:00 Actual Procedures p Cystoscopy with Right Laser Lithotripsy, Right Stent Exchange/Placement, Retrograde Pyelogram, Stone basket extraction, Ureteral Dilation (Right) - Chalino Cruz DO Surgeon Chalino Cruz, II, DO Template Reproduction Technician None Estimated Blood Loss 1 Findings Consistent with Post-Op Diagnosis Numerous stones and fragments in the right renal pelvis. Stones destroyed to dust and small fragments and larger fragments removed. Stricture of the mid ureter. Specimens Stone Fragments - Right Renal Drains 6 Fr x 24 cm Right 18 Fr Silicone Catheter Anesthesia Type General Complications none Disposition Disposition: Recovery Room Indications Patient with bothersome stones. Risks and benefits discussed at length. Description of Procedure Patient was consented and brought back to the operating room. Patient was placed under anesthesia in the supine position and moved to the dorsal lithotomy position. Patient was prepped and draped in the regular sterile fashion. A time out was completed. A 30degree Cystoscope was placed into the bladder and the entire bladder was examined. The UO's were identified. The stent was grasped and partially removed. A wire was placed. The stent was then fully removed. The UO was cannulized with a catheter and a retrograde pyelogram was completed. A wire was then placed. The Rigid ureteroscope was taken into the ureter. Significant stricture was discovered in the mid ureter just proximal to the area where the stone had been impacted. This was dilated. Some small stones were discovered. A laser fiber was selected and the stones were pulverized to dust and small fragments. Larger fragments were grasped and removed and sent for analysis. A second wire was then placed and the rigid scope removed. The area of stricture was then dilated again. The flexible scope was then taken over the second wire and advanced to the proximal ureter and renal pelvis. The entire pelvis was examined and the stones were further treated with the laser and basketed for removal. Numerous small stones and fragments were discovered in the renal pelvis. Moderate amount of debris was discovered. The entire area was once again examined. No residual large fragments or areas of concern were noted. The scope was slowly removed with the wire left in place. Contrast was placed through the scope for a pyelogram to assist in stent p lacement. The entire ureter was examined as the scope was slowly removed. No obstructions or other areas of concern were noted. With the wire in place, a 6 Fr Double J stent was placed. It was confirmed with fluoroscopy. With the stent in place, the bladder was emptied. The scope was removed. An 18 Congolese catheter was then placed. A silicone catheter was used due to patient's allergy. The patient was cleaned, aroused from anesthesia, and transferred to the pacu in stable condition having tolerated the procedure well with no complications. I was present and participated in all aspects of the procedure. The patient will be monitored in the PACU until transferred. Can trial catheter removal in the next few days. Will plan to maintain stent for approximately 2 to 3 weeks with removal in office I attest to the content of the Intraoperative Record and any orders documented therein. Any exceptions are noted below.
--- NOTE | 2024-12-13 14:17 | Anesthesiology Progress Note ---
Date of Service December 13, 2024 Anesthesia Post Procedure Vital Signs Vital Signs: Temp Pulse Pulse Pulse Resp BP Pulse Ox 12/13/24 14:15 87 16 105/58 L 100 12/13/24 14:05 36.0 C L 81 14 110/58 L 99 12/13/24 12:01 37.1 C 83 20 117/70 97 12/13/24 10:33 36.3 C L 77 18 147/83 H 97 12/13/24 07:50 36.3 C L 94 H 18 150/68 H 96 12/13/24 07:14 99 H 12/13/24 03:41 36.7 C 83 16 124/79 96 12/12/24 23:40 36.5 C 78 18 117/75 97 12/12/24 22:00 69 12/12/24 21:55 12/12/24 20:13 36.7 C 78 18 116/67 96 12/12/24 18:17 36.9 C 84 16 118/63 95 12/12/24 15:01 O2 Del Method O2 Flow Rate 12/13/24 14:15 Oxymask 6 12/13/24 14:05 Oxymask 6 12/13/24 12:01 Room Air 12/13/24 10:33 Room Air 12/13/24 07:50 Room Air 12/13/24 07:14 12/13/24 03:41 Room Air 12/12/24 23:40 Room Air 12/12/24 22:00 12/12/24 21:55 Room Air 12/12/24 20:13 Room Air 12/12/24 18:17 Room Air 12/12/24 15:01 Room Air Transfer of Care Handoff Completed per policy Notes Mental Status: alert / awake / arousable Patient Amnestic to Procedure: Yes Nausea / Vomiting: adequately controlled Pain: adequately controlled Airway Patency, RR, SpO2: stable & adequate BP & HR: stable & adequate Hydration State: stable & adequate Anesthetic Complications: no major complications apparent
--- NOTE | 2024-12-13 15:16 | Fluoroscopy Report ---
FL retrograde includes kub CLINICAL HISTORY: ADD ON LASER STENT RIGHT SIDEright-sided cystourethrogram COMPARISON STUDY: 12/06/2024 FLUOROSCOPY TIME: 1 minute and 13.5 seconds FLUOROSCOPY IMAGES: 2 EXPOSURE DOSE: 16.754 mGy FINDINGS: A right-sided ureteral stent appears to be in satisfactory positioning. There is persistent right-sided hydronephrosis. IMPRESSION: Fluoroscopic assistance as above. ACT 112: Negative or not required by law. Electronically signed by: Yonatan Meza M.D. 12/13/2024 3:14 PM
--- NOTE | 2024-12-13 17:44 | Billing Data ---
Date of Service December 13, 2024 Coding Level of Care Code 65031 SUB INP/OBS CARE
--- NOTE | 2024-12-14 07:38 | Hospitalist Progress Note ---
Date of Service December 14, 2024 Assessment & Plan (1) Hematuria: (2) Hypothermia: (3) Septic shock: (4) Right ureteral calculus: (5) Kidney stone on right side: (6) Respiratory failure: (7) Encephalopathy acute: (8) Venous stasis dermatitis: (9) PJ (acute kidney injury): (10) Stage 3b chronic kidney disease: (11) CKD (chronic kidney disease) stage 4, GFR 15-29 ml/min: (12) Atrial fibrillation: (13) Pacemaker: Plan 1) Respiratory failure: -Resolved -Acute hypoxemic respiratory failure present on admission. -Extubated on December 07. - She is now on room air and saturating well (2) Septic shock: -Present on admission. - Pressor support has been weaned off. -Metoprolol has been restarted. - Cultures remain negative. - Cefepime has been discontinued. - She is now on midodrine (3) Hypothermia: -Resolved. (4) Acute Metabolic Encephalopathy -Resolved (5) Kidney stone on right side: -Acute, resulting in moderate R-sided hydronephrosis. - Urology on board - On December 06, she underwent cystoscopy with laser lithotripsy of the obstructing stone and placement of a right ureter stent. The patient denies any pain. Capone catheter is in place with evidence of gross hematuria. - Cystoscopy with Rt Laser Lithotripsy was done. Numerous stone and fragments in rt renal pelvis. 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 Old stent was removed and new 6Fr Double J stent was placed. 18 Fr Silicon Catheter was used. Consider trial catheter remove in few days. Maintain stent approx for 2 to 3 weeks with removal in office. Hopefully can go to [facility] tomorrow, if she gets bed. (6) Thrombocytopenia: - Improving. Today 120 - Likely consumptive or because of sepsis (7) Atrial fibrillation: -Chronic. -Telemetry. -Metoprolol has been restarted VTE prophylaxis: Eliquis on hold due to hematuria and procedure Code: DNR/DNI Dispo: Med/Surg with Tele Admission and Anticipated Discharge Date Admission Date: December 06, 2024 Supervising Physician Co-Signing Physician Notes I personally examined the patient and verified all nino points of history and exam, discussed case, and agree with decision making with Dr Buchanan no new complaints - notes that [facility] told her tomorrow for bed. vitals noted nad heent nc at mmm breathing unlabored no accessory muscles good effort skin no rashes no pallor or icterus neuro no focal deficits ureterolithiasis/sepsis/presumed pyelonephritis - doing better, off abx, s/p cysto/lithotripsy yesterday, doing well hopefully [facility] tomorrow otherwise as above Hazel Garcia is a 89 Y O Female with PMH of Atrial Fibrillation Under Pacemaker, Stage 4 CKD. She presented to ER with altered mental status, unresponsive to stimuli and respiratory arrest. She was admitted for Respiratory Failure, Acute Metabolic Encephalopathy, Septic Shock and Hypothermia. Overnight events: Slept well. No any overnight events Ongoing Symptoms: On evaluation this morning, patient mentioned she feels like she is not herself. Was bit confused probably due to residual anesthesia effect. However she was well oriented to time place and person. Denies abdominal pain, chest pain, shortness of breath and dizziness New concerns: No any Review of Systems Review of Systems: As per HPI Physical Exam Constitutional: WD/WN, vitals as above well developed; no acute distress Eyes: PERRL, conjunctivae normal, anicteric sclerae ENMT: external ear and nose normal, oropharynx normal Ears: no hearing impairment Neck: trachea midline, no thyromegaly trachea midline Respiratory: normal respiratory effort, lungs clear to auscultation normal respiratory effort and + respiratory distress; no labored breathing and no retractions Auscultation: lungs clear to auscultation bilaterally Cardiovascular: RRR, no murmur, no edema Rate/Rhythm: regular rate and regular rhythm Chest (Breasts): normal inspection/palpation of breasts Chest: normal inspection of chest Results & Data Results & Data Vital Signs (Past 12 Hours) Vital Signs Temp Pulse Pulse Resp BP BP Pulse Ox 12/14/24 07:00 87 12/14/24 03:26 36.4 C L 86 20 147/81 H 96 12/14/24 00:00 36.4 C L 77 20 118/55 L 97 12/13/24 22:07 74 12/13/24 21:00 12/13/24 19:55 36.3 C L 78 20 112/65 96 O2 Del Method 12/14/24 07:00 12/14/24 03:26 Room Air 12/14/24 00:00 Room Air 12/13/24 22:07 12/13/24 21:00 Room Air 12/13/24 19:55 Room Air (6) Respiratory failure Chronicity: acute Respiratory failure complication: unspecified whether with hypoxia or hypercapnia Qualified Code(s): J96.00 - Acute respiratory failure, unspecified whether with hypoxia or hypercapnia (12) Atrial fibrillation Atrial fibrillation type: unspecified Qualified Code(s): I48.91 - Unspecified atrial fibrillation
[2024-12-14 10:44] LABS: Basophils # (auto) 0.01 K/uL (0.00-0.20); Basophils % (auto) 0.1 %; Hematocrit (blood only) 25.5 % (37.0-47.0); Hemoglobin 8.2 g/dl (12.0-16.0); Immature Granulocytes # (auto) 0.04 K/uL (0.01-0.20); Immature Granulocytes % (auto) 0.5 %; Lymphocytes # (auto) 0.47 K/uL (1.20-3.40); Lymphocytes % (auto) 5.4 %; Mean Corpuscular Hemoglobin 29.8 pg (25.0-34.0); Mean Corpuscular Hgb Conc 32.2 g/dL (32.0-36.0); Mean Corpuscular Volume 92.7 fL (80.0-100.0); Mean Platelet Volume 11.4 fL (9.4-12.4); Monocytes # (auto) 0.49 K/uL (0.11-0.59); Monocytes % (auto) 5.6 %; Neutrophils # (auto) 7.74 K/uL (1.40-6.50); Neutrophils % (auto) 88.4 %; Nucleated RBC # (auto) 0.03 K/uL (0.00-0.12); Nucleated RBC % (auto) 0.3 %; Platelet Count 120 K/uL (130-400); RDW Coefficient of Variation 15.4 % (11.5-14.5); RDW Standard Deviation 50.7 fL (36.4-46.3); Red Blood Count 2.75 M/uL (4.20-5.40); White Blood Count 8.75 K/ul (4.8-10.8)
[2024-12-14 11:01] LABS: Bilirubin,Total 0.8 mg/dl (0.2-1.0); Calcium 8.7 mg/dl (8.6-10.3); Creatinine Clr Calc Pharmacy 30.1 ml/min; Globulin 3.1 gm/dl (2.5-4.0); Potassium 5.1 mmol/L (3.5-5.1); Total Protein 6.1 gm/dl (6.0-8.3)
--- NOTE | 2024-12-14 12:56 | Billing Data ---
Date of Service December 14, 2024 Coding Level of Care Code 88200 SUB INP/OBS CARE
--- NOTE | 2024-12-14 13:12 | Urology Progress Note ---
Date of Service December 14, 2024 Assessment & Plan (1) Right ureteral calculus: Plan - Pt POD#1 s/p cystoscopy, right ureteroscopy, laser lithotripsy and right ureteral stent exchange - Doing well, progressing as expected - Afebrile, stable vitals - Lab work reviewed - creatinine 1.4, WBC 8.75 - Tolerating right ureteral stent with minimal bother - Okay to d[facility]c from [facility] when medically stable - Capone with hematuria, expected with stent in place - Okay to hand irrigate catheter if it becomes obstructed - Recommend maintain Capone catheter until she is more ambulatory - Expected clinical course reviewed, all questions answered - Will arrange outpatient follow-up with our service for stent removal - will sign off, please contact our service with any additional questions or concerns Admission and Anticipated Discharge Date Admission Date: December 06, 2024 Subjective Patient seen and examined at bedside this afternoon. Daughter in room. Patient awake, alert and sitting up in bed. Denies pain. Capone intact and draining with hematuria. Denies fever, chills, nausea or vomiting. Review of Systems Constitutional: as per Subjective / HPI Genitourinary: as per Subjective / HPI Physical Exam Constitutional: no acute distress Respiratory: no respiratory distress and no labored breathing Gastrointestinal (Abdomen): Inspection/Auscultation: abdomen not distended Neurologic: moves all extremities and awake Psychiatric: Orientation: alert and oriented x 3 Genitourinary: Capone intact, draining maroon urine Results & Data Vital Signs (Past 12 Hours) Vital Signs Temp Pulse Pulse Resp BP BP Pulse Ox 12/14/24 11:00 36.4 C L 75 16 133/79 95 12/14/24 08:23 12/14/24 07:00 36.6 C 86 16 120/74 97 12/14/24 07:00 87 12/14/24 03:26 36.4 C L 86 20 147/81 H 96 O2 Del Method 12/14/24 11:00 Room Air 12/14/24 08:23 Room Air 12/14/24 07:00 Room Air 12/14/24 07:00 12/14/24 03:26 Room Air PG Care Time/CCT Total # of Minutes Spent Total Time Spent with Patient: Total time spent is greater than 50% in coordination of care (as documented) at patient's floor/unit and/or counseling patient: Coding Level of Care Code 79546 SUB INP/OBS CARE 11/13MIN Diagnoses Right ureteral calculus N20.1
[2024-12-14] MEDS: CIPROFLOXACIN 500 MG TAB PO SCH (20:26)
[2024-12-14] MEDS ORDERED: ACETAMINOPHEN 500 MG TAB PO PRN (22:14)
[2024-12-15 06:51] LABS: Basophils # (auto) 0.04 K/uL (0.00-0.20); Basophils % (auto) 0.5 %; Eosinophils # (auto) 0.24 K/uL (0.00-0.50); Eosinophils % (auto) 3.1 %; Hematocrit (blood only) 24.1 % (37.0-47.0); Hemoglobin 7.6 g/dl (12.0-16.0); Immature Granulocytes # (auto) 0.03 K/uL (0.01-0.20); Immature Granulocytes % (auto) 0.4 %; Lymphocytes # (auto) 1.21 K/uL (1.20-3.40); Lymphocytes % (auto) 15.7 %; Mean Corpuscular Hemoglobin 29.6 pg (25.0-34.0); Mean Corpuscular Hgb Conc 31.5 g/dL (32.0-36.0); Mean Corpuscular Volume 93.8 fL (80.0-100.0); Mean Platelet Volume 11.2 fL (9.4-12.4); Monocytes # (auto) 0.95 K/uL (0.11-0.59); Monocytes % (auto) 12.4 %; Neutrophils # (auto) 5.22 K/uL (1.40-6.50); Neutrophils % (auto) 67.9 %; Platelet Count 118 K/uL (130-400); RDW Coefficient of Variation 15.8 % (11.5-14.5); RDW Standard Deviation 51.4 fL (36.4-46.3); Red Blood Count 2.57 M/uL (4.20-5.40); White Blood Count 7.69 K/ul (4.8-10.8)
[2024-12-15 07:18] LABS: BUN Creatinine Ratio 38.5 (10-20); Creatinine Clr Calc Pharmacy 32.3 ml/min; Potassium 5.1 mmol/L (3.5-5.1)
--- NOTE | 2024-12-15 07:21 | Hospitalist Progress Note ---
Date of Service December 15, 2024 Assessment & Plan (1) Hematuria: (2) Hypothermia: (3) Septic shock: (4) Right ureteral calculus: (5) Kidney stone on right side: (6) Respiratory failure: (7) Encephalopathy acute: (8) Venous stasis dermatitis: (9) PJ (acute kidney injury): (10) Stage 3b chronic kidney disease: (11) CKD (chronic kidney disease) stage 4, GFR 15-29 ml/min: (12) Atrial fibrillation: (13) Pacemaker: Plan 1) Respiratory failure: -Resolved -Acute hypoxemic respiratory failure present on admission. -Extubated on December 07. - She is now on room air and saturating well (2) Septic shock: -Present on admission. - Pressor support has been weaned off. -Metoprolol has been restarted. - Cultures remain negative. - Cefepime has been discontinued. - She is now on midodrine (3) Hypothermia: -Resolved. (4) Acute Metabolic Encephalopathy -Resolved (5) Kidney stone on right side: -Acute, resulting in moderate R-sided hydronephrosis. - Urology on board - On December 06, she underwent cystoscopy with laser lithotripsy of the obstructing stone and placement of a right ureter stent. The patient denies any pain. Capone catheter is in place with evidence of gross hematuria. - Cystoscopy with Rt Laser Lithotripsy was done. Numerous stone and fragments in rt renal pelvis. 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 Old stent was removed and new 6Fr Double J stent was placed. 18 Fr Silicon Catheter was used. Consider trial catheter remove in few days. Maintain stent approx for 2 to 3 weeks with removal in office. Hopefully can go to [facility] tomorrow, if she gets bed. (6) Thrombocytopenia: - Improving. Today 120 - Likely consumptive or because of sepsis (7) Atrial fibrillation: -Chronic. -Telemetry. -Metoprolol has been restarted VTE prophylaxis: Eliquis on hold due to hematuria and procedure Code: DNR/DNI Dispo: Med/Surg with Tele Admission and Anticipated Discharge Date Admission Date: December 06, 2024 Supervising Physician Co-Signing Physician Notes I personally examined the patient and verified all nino points of history and exam, discussed case, and agree with decision making with Dr Buchanan doing well, for [facility] today vitals noted nad heent nc at mmm breathing unlabored no accessory muscles good effort skin no rashes no pallor or icterus neuro no focal deficits ureterolithiasis/sepsis/presumed pyelonephritis - doing better, off abx, s/p cysto/lithotripsy 12/13, doing well. for rehab today. otherwise as above Subjective Radha is a 89 Y O Female with PMH of Atrial Fibrillation Under Pacemaker, Stage 4 CKD. She presented to ER with altered mental status, unresponsive to stimuli and respiratory arrest. She was admitted for Respiratory Failure, Acute Metabolic Encephalopathy, Septic Shock and Hypothermia. Overnight events: Slept well. No any overnight events Ongoing Symptoms: On evaluation this morning, patient mentioned she feels better than yesterday. She is oriented to time, place and person. Denies abdominal pain, chest pain, shortness of breath and dizziness New concerns: No any Review of Systems Review of Systems: As per HPI Physical Exam Constitutional: WD/WN, vitals as above well developed; no acute distress Eyes: PERRL, conjunctivae normal, anicteric sclerae ENMT: external ear and nose normal, oropharynx normal Ears: no hearing impairment Neck: trachea midline, no thyromegaly trachea midline Respiratory: normal respiratory effort, lungs clear to auscultation normal respiratory effort and + respiratory distress; no labored breathing and no retractions Auscultation: lungs clear to auscultation bilaterally Cardiovascular: RRR, no murmur, no edema Rate/Rhythm: regular rate and regular rhythm Chest (Breasts): normal inspection/palpation of breasts Chest: normal inspection of chest Results & Data Results & Data Vital Signs (Past 12 Hours) Vital Signs Temp Pulse Pulse Resp BP Pulse Ox O2 Del Method 12/15/24 03:20 36.3 C L 68 18 110/70 93 Room Air 12/14/24 23:00 36.6 C 74 18 104/76 97 Room Air 12/14/24 21:44 75 12/14/24 20:30 Room Air 12/14/24 19:55 36.3 C L 76 16 121/68 98 Room Air (6) Respiratory failure Chronicity: acute Respiratory failure complication: unspecified whether with hypoxia or hypercapnia Qualified Code(s): J96.00 - Acute respiratory failure, unspecified whether with hypoxia or hypercapnia (12) Atrial fibrillation Atrial fibrillation type: unspecified Qualified Code(s): I48.91 - Unspecified atrial fibrillation
[2024-12-15 08:02] LABS: Polychromasia 2+; Target Cells 1+
--- NOTE | 2024-12-15 15:57 | Billing Data ---
Date of Service December 15, 2024 Coding Level of Care Code 68535 IN/OBS DISCH 30 MIN/LESS
[2024-12-16 00:27] VITALS: TEMP 98.6
[2024-12-16 03:53] VITALS: RESP 18
[2024-12-16 07:14] VITALS: BP 102/61; O2SAT 96
--- NOTE | 2024-12-16 07:34 | Billing Data ---
Date of Service December 15, 2024 Coding Level of Care Code 95637 SUB INP/OBS CARE
[2024-12-16] MEDS: POLYETHYLENE (MIRALAX) 17 GM PACK PO PRN (08:24)
[2024-12-16] MEDS: ONDANSETRON 4 MG OD TAB PO STA (08:29)
[2024-12-16 10:54] VITALS: PULSE 84
--- NOTE | 2024-12-16 13:30 | Discharge Summary ---
Date of Service December 16, 2024 Admission HPI Per Admitting Provider Radha is an 89 yo F with a pmhx of HTN, GI bleeding, afib, CAD w/ h/o NV, hyperthyroidism, CKD stage IIIa, chronic venous insufficiency who presents to the ER initially for increased generalized weakness since an ER visit last Friday. She summoned EMS services d/t complaints of generalized weakness, increased confusion (per family) and home health nurse had reported concerns due to hypotension as well. In route to the hospital in the ambulance, pt became unresponsive and went into respiratory arrest. She was bagged and the patient did resume spontaneous breathing on her own but was not able to follow commands or protect her airway. She was medicated with a dose of epinephrine prior to arrival due to hypotension. She was intubated in the ER upon arrival. CT head, chest and abdomen obtained, concerns for pulmonary edema noted on chest imaging and she was also found to have a right sided ureteral stone with subsequent moderate right hydronephrosis. A meza catheter has been placed. Her urine does appear infected, however, epithelial cells noted on UA and subsequently may represent contamination. She is afebrile w/o leukocytosis or shift, a normal PCT and lactate level. She was bolused with 2L of NSS in the ER and has been placed on a levophed gtt to stabilize BP. She received a dose of IV Cefepime 2g, she does have a h/o pseudomonal infection. Plan of care d/w Dr. Patel, advertising dispatch clerk, who has seen and evaluated the patient. She has also been seen by Dr. Cruz who plans to perform cystoscopy with right stent placement. Pt agreeable. Her creatinine came back at 1.60 which has trended down from last creatinine of 2.10 on 12/01. Her last ABG was obtained at time of intubation with a pH of 7.23, pCO2 34, and pO2 458 w/ sat of 100%. She is currently on assist control mode. She is hypothermic with a bear hugger in place. She also is noted to have an acute drop in her platelets at 46, was 75 on 12/01, 102 on 11/26 and last normal at 133 on 10/12/2024. Family is agreeable to proceed with attempt at treatment but do not want pt to be dependent on mechanical ventilation and are agreeable to palliative extubation if she fails to improve following stone treatment. Admission Exam Per Admitting Provider PHYSICAL EXAM: GENERAL: Unresponsive to painful or verbal stimuli some shallow breathing Head: normocephalic and atraumatic EYES: No injection, discharge or icterus. PERRL, EOMI. NECK: Trachea midline. Supple. ENT: Mucous membranes pink and moist. Loose upper dentures with a trace amount of blood on the tongue. LUNGS: Airway patent. No retractions. Breath sounds clear HEART: Regular rate and rhythm. No chest wall tenderness ABDOMEN: Soft and non-tender, without guarding or rebound. SKIN: Acyanotic, warm, dry, without rashes EXTREMITIES: Without swelling, tenderness or deformity NEUROLOGICAL: No response to painful stimuli. Slight cough. Some tongue movements but no opening the eyes to verbal or painful stimuli. Principal Diagnosis 1. Right Ureteral Calculus S/P cystoscopy with laser Lithotripsy 2. Kidney Stone on the right side 3. Respiratory Failure(Resolved) 4. Hematuria 5. Septic Shock(Resolved) Discharge Exam Constitutional: WD/WN, vitals as above well developed; no acute distress Eyes: PERRL, conjunctivae normal, anicteric sclerae ENMT: external ear and nose normal, oropharynx normal Ears: no hearing impairment Neck: trachea midline, no thyromegaly trachea midline Respiratory: normal respiratory effort, lungs clear to auscultation normal respiratory effort and + respiratory distress; no labored breathing and no retractions Auscultation: lungs clear to auscultation bilaterally Cardiovascular: RRR, no murmur, no edema Rate/Rhythm: regular rate and regular rhythm Chest (Breasts): normal inspection/palpation of breasts Chest: normal inspection of chest Discharge Data Allergies Allergy/AdvReac Type Severity Reaction Status Date / Time latex Allergy Unknown Rash Verified 11/30/24 08:54 Penicillins Allergy Unknown Rash, Verified 11/30/24 08:54 heart palpitations Sulfa (Sulfonamide Allergy Unknown rash Verified 11/30/24 08:54 Antibiotics) cephalexin AdvReac Unknown Diarrhea Verified 11/30/24 08:54 Consultations 12/06/24 12:19 Consult Ride Operator Routine ED Decision to Admit Stat 12/06/24 12:56 Consult Urology Routine 12/08/24 11:03 Consult Infectious Diseases Routine Procedures Performed Operation Date: 12/13/24 07:00 Actual Procedures p Cystoscopy, Laser Lithotripsy, Retrograde Pyelogram, Stone basket extraction(Right) - Chalino Cruz DO s Right Stent Placement,(Right) - Chalino Cruz DO Ordered Studies 12/06/24 [place] retrograde includes kub Routine 12/06/24 10:54 CT chest diagnostic wo con Stat CT head/brain wo con Stat 12/06/24 10:57 CT abd pelvis wo con Stat 12/13/24 FL retrograde includes kub Routine Hospital Course (1) Hematuria: (2) Dementia, vascular with delirium: (3) Hypothermia: (4) Septic shock: (5) Right ureteral calculus: (6) Kidney stone on right side: (7) Respiratory failure: (8) Stage 3b chronic kidney disease: (9) Pseudomonas aeruginosa infection: (10) Venous ulcer of right leg: (11) Acute kidney injury: (12) CKD (chronic kidney disease) stage 4, GFR 15-29 ml/min: (13) Hemorrhagic disorder due to extrinsic circulating anticoagulants: (14) Thrombocytopenia: (15) Chronic venous insufficiency: (16) Cellulitis of right lower extremity: (17) Pacemaker: Plan 1) Respiratory failure: -Resolved -Acute hypoxemic respiratory failure present on admission. -Extubated on December 07. - She is now on room air and saturating well (2) Septic shock: -Present on admission. - Hold Lisinopril and Hydrochlorthiazide -Metoprolol has been restarted. -Resume Dronedarone and Nitroglycerine - Cultures remain negative. - Cefepime has been discontinued. - She is now on midodrine . Continue Midodrine for now. Stop one the BP is controlled. Followup with PCP (3) Hypothermia: -Resolved. (4) Acute Metabolic Encephalopathy -Resolved (5) Kidney stone on right side: -Acute, resulting in moderate R-sided hydronephrosis. - Urology on board - On December 06, she underwent cystoscopy with laser lithotripsy of the obstructing stone and placement of a right ureter stent. The patient denies any pain. Meza catheter is in place with evidence of gross hematuria. - Cystoscopy with Rt Laser Lithotripsy was done. Numerous stone and fragments in rt renal pelvis. 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 Old stent was removed and new 6Fr Double J stent was placed. 18 Fr Silicon Catheter was used. Consider trial catheter remove in few days. Maintain stent approx for 2 to 3 weeks with removal in office. -Discharge to [facility] Today (6) Thrombocytopenia: - Improving. Today 120 (7) Atrial fibrillation: -Chronic. -Telemetry. -Metoprolol has been restarted - Eliquis on hold until hematuria is resolved Total Time Total Time Spent Total Time Spent (In Minutes): <30 Discharge Plan Discharge Items Patient Disposition: Transfer Inpatient Rehab Fac Reason For Visit: RESP ARREST, URETERAL STONE Discharge Diagnosis: 1. Right Ureteral Calculus S/P cystoscopy with laser Lithotripsy 2. Kidney Stone on the right side 3. Respiratory Failure(Resolved) 4. Hematuria 5. Septic Shock(Resolved) Activity: Per Instructions section Non-emergency contact: Primary Care Provider and Urologist Call non-emergency contact if: you have any medication questions, your symptoms worsen and your pain is not controlled Follow-up/Referrals: Kelvin Vee, [Primary Care Provider] - Diet: Regular Addtl Attending Provider Instructions: You presented to the ER with altered mental status ,being unresponsive and respiratory arrest. You were intubated on ER and everything went smoothly and you were successfully extubated. You also had Septic shock when you presented to hospital and your BP was too Low. So we stopped you antihypertensive medications and you were on pressor support to help raise and maintain your blood pressure. We stopped your pressure support and started you on Midodrine which is medicine that you take by mouth to raise your blood pressure. A discharge summary will be sent to your primary care physician to ensure continuity of care. Please bring this discharge summary with you to your next office appointment so that your provider can review it at that time. Follow-up appointments: Make a follow-up appointment with your PCP after you are discharged fro [facility] as soon as possible. It is very important that you follow up with them shortly after discharge from the hospital. Make followup appointment with your urologist after 2-3 weeks for stent removal Keep all your follow-up appointments as already scheduled. If you cannot make an appointment, notify your provider. Medications: Your medication list has been reviewed and reconciled upon discharge to ensure accuracy and continuity of care. An updated list of all your medications is included with your hospital discharge paperwork. Please review this list closely, and make note of any changes. The medication that you were taking called Subhaquis for Atrial Fibrillation is on hold now because of blood in urine. Will start once the bleeding stops.We have started new medication for Midodrine to maintain your blood pressure. But it is not expected to take it for forever. Please discuss with your PCP in your next visit. The medications that you were taking at home for Hypertension like Hydrochlorothiazide and Lisinopril are on hold as your blood pressure was low. Please discuss with your PCP in your next visit about this medication. Take your medications as instructed; do not skip a dose of your medicines. Make sure all of your doctors know every medicine you are taking (including buyo-cxv-ndqjeno medicines, vitamins, and supplements). Call your primary care provider before taking any new medicines (including overthe-counter medicines, vitamins, and supplements), because some of these may interact with your current medications, or may make your symptoms worse. Tell your primary care provider if you cannot afford your medications. CONTACT YOUR PRIMARY CARE PROVIDER if you experience any of the following: Dizziness Increased blood in urine or bleeding from any other sites Loss of consciousness and weakness Difficulty following your treatment plan, or difficulty taking medications CALL 911 OR GO TO THE EMERGENCY DEPARTMENT if you experience any of the following: Sudden, severe abdominal pain or nausea/vomiting Severe chest pain, or chest pain that radiates (moves) to your jaw or arm Sudden, severe shortness of breath or difficulty breathing Thank you for allowing us to participate in your care. . Pending Studies at Discharge: No Stand-Alone Forms: My [facility] Skilled Items Patient informed of condition?: Yes DNR: Yes Discharge Level of Care: Acute rehab Communicable Disease: No Discharge Prognosis: Stable Lines: None Urinary Catheter: Yes Medications and DC Order Prescriptions: New ciprofloxacin HCl 500 mg Tablet 500 mg PO BID Qty: 2 0RF midodrine 10 mg Tablet 10 mg PO TID@0800,1200,1700 Qty: 10 0RF Rx Instructions: wean as BP allows thiamine HCl (vitamin B1) 100 mg Tablet 100 mg PO DAILY Qty: 30 0RF Continued dronedarone [Multaq] 400 mg tablet 400 mg PO BID multivitamin tablet 1 tab PO QAM Rx Instructions: otc unable to verify nitroglycerin [Nitrostat] 0.4 mg tablet, sublingual 0.4 mg SL Q5M PRN (Reason: Chest Pain) Patient Comments: never had to use Rx Instructions: not on file with pharmacy. (DME) Lift Chair Misc See Rx Instructions .Route Qty: 1 0RF Rx Instructions: As directed biotin 10 mg tablet 10 mg PO QAM Rx Instructions: otc unable to verify bromelains 500 mg tablet 500 mg PO DAILY Rx Instructions: otc unable to verify administer after a meal acetaminophen [Tylenol Extra Strength] 500 mg Tablet 1,000 mg PO Q6H PRN (Reason: Pain) Rx Instructions: otc unable to verify cholecalciferol (vitamin D3) [Vitamin D3] 125 mcg (5,000 unit) Tablet 125 mcg PO QAM Rx Instructions: otc unable to verify metoprolol succinate [Toprol XL] 50 mg tablet extended release 24 hr 50 mg PO QAM Rx Instructions: 50 mg po qam per pharmacy gentamicin 0.1 % ointment 1 applic topical UD Rx Instructions: filled in back in oct 20 applic topically as directed -with dressing changes Held Eliquis 2.5 mg tablet 2.5 mg PO BID Hold Instructions: Resume on 12/30/24. resume date unclear - please resume when hematuria has cleared lisinopril 5 mg tablet 5 mg PO DAILY Qty: 90 3RF Hold Instructions: Resume on 12/30/24. resume date unclear - as midodrine is weaned please resume home BP meds hydrochlorothiazide 12.5 mg tablet 12.5 mg PO UD Hold Instructions: Resume on 12/30/24. resume date unclear - as midodrine is weaned please resume home HTN meds Rx Instructions: Friday Discharge Orders: Discharge Order (Routine); Ordered 12/16/24 Ordered By: Gordon Buchanan Admission Data Admit Date/Time: 12/06/24 13:56 Attending Provider: Anjel Ojeda Admit Provider: Misha Ford Primary Care Provider: Kelvin Vee [facility]; Misha Ford; Neil Patel; Chalino Cruz; IRB Approved Study,Ernestine Other Interventions: Discharge Summary Assessment (RN) Last Done: 12/16/24 10:44 Supervising Physician Co-Signing Physician Notes I personally examined the patient and verified all nino points of history and exam, discussed case, and agree with decision making with Dr Buchanan doing well, for [facility] today - bed wasn't available yesterday vitals noted nad heent nc at mmm breathing unlabored no accessory muscles good effort skin no rashes no pallor or icterus neuro no focal deficits ureterolithiasis/sepsis/presumed pyelonephritis - doing better, off abx, s/p cysto/lithotripsy 12/13, doing well. no bed yesterday - for rehab today otherwise as above
--- NOTE | 2024-12-16 17:48 | Billing Data ---
Date of Service December 16, 2024 Coding Level of Care Code 72831 IN/OBS DISCH 30 MIN/LESS
[2024-12-18 23:07] LABS: Component 2 DNR; Source KIDNEY STONE
== END 2024-12-16 11:15 | DRG 853 ==
LOC: ED 10:40 → SUATTDRO 13:56 → 1E 13:56 → 2N 12-11 22:07

== ENCOUNTER 2025-02-26 19:19 | Inpatient (IN) ==
--- NOTE | 2025-02-26 19:57 | Emergency Department Note ---
Impression & Plan Acute dyspnea, Acute exacerbation of CHF (congestive heart failure), Acute kidney injury superimposed on chronic kidney disease, Elevated brain natriuretic peptide (BNP) level ED Provider Note HISTORY OF PRESENT ILLNESS: Patient is an 89-year-old female presenting with shortness of breath. Patient presents from [facility]. Patient reportedly has been having shortness of breath for the last 2 weeks. However, the patient reports in the last week her shortness of breath has gotten significantly worse. She has had a significant weight gain and swelling of her lower extremities. She not on any diuretics. Denies any chest pain. She states that she has a pacemaker in place and reports that it is "nearing the end of its life." She denies any DVT or PE history. Denies any history of cardiac stents. She denies any recent fevers or cough. Denies any abdominal pain, nausea or vomiting. Reports shortness of breath is both at rest and with exertion. However, she states that her shortness of breath is worse when she is up and getting around. ROS: as above PHYSICAL EXAM: Constitutional: Patient appears in no acute distress. HENT: Head: Normocephalic and atraumatic. Eyes: EOMI, PERRL Mouth/Throat: Mucous membranes moist. Neck: Trachea midline. Neck supple. Cardiovascular: Paced rhythm. No murmurs, rubs or gallops. Intact distal pulses. Pulmonary/Chest: No respiratory distress. Conversationally dyspneic. Decreased breath sounds in bilateral lung bases. Patient is tachypneic. Abdominal: Abdomen soft, no tenderness, rebound or guarding. Musculoskeletal: No tenderness or deformity noted. +3 pitting edema extending to the mid femurs bilaterally. Skin: Warm and dry. No rash, erythema, pallor or cyanosis Psychiatric: Appropriate mood and affect for situation. Neurological: Alert and keenly responsive. CN II-XII grossly intact, moving all extremities equally and fully. MDM: - Vitals signs stable. - History obtained via patient. History as above. - Chronic conditions affecting care: Afib (on coumadin); HTN; hyperthyroidism; thrombocytopenia; CKD - Differential diagnoses include, but are not limited to: Congestive heart failure; acute coronary syndrome; COPD/asthma exacerbation; pulmonary edema; pulmonary embolism; pneumonia; pneumothorax; viral syndrome - Order placed for continuous cardiac monitoring. At this time, monitor showed rate of 80 bpm with paced rhythm, per my interpretation. - External medical records reviewed. Discharge summary dated 12/16/2024 was reviewed. Patient was admitted that time secondary to septic shock from a right ureteral calculus. - EKG image interpreted by myself showed paced rhythm. Rate 80 bpm. QT 446. No acute ischemic changes. - Laboratory workup interpreted by myself showed leukopenia (WBC 3.80); anemia (Hgb 10.7); thrombocytopenia (plt 90); elevated INR (1.2); stable electrolytes; PJ on CKD (Cr 1.74); elevated BNP (657); normal troponin - VBG shows slight acidosis (pH 7.33) - CXR image reviewed by myself showed bilateral pleural effusions and significant cardiomegaly, per my interpretation. - Givne 40 mg IV lasix in ER. - Discussion was had with case management rn about patient's case and need for admission - Hospitalist, Dr. Luu, consulted for admission - [facility] ASSESSMENT AND PLAN: Diagnosis: Acute dyspnea; acute CHF exacerbation; PJ on CKD; elevated BNP Plan: Admit Past Med/Surg History Problem List (Updated 02/26/25 @ 22:59 by Alicia Luu DO) Elevated brain natriuretic peptide (BNP) level (Acute) Acute kidney injury superimposed on chronic kidney disease (Acute) Acute exacerbation of CHF (congestive heart failure) (Acute) Acute dyspnea (Acute) Nephrolithiasis, uric acid Hematuria Hypothermia Septic shock Right ureteral calculus Kidney stone on right side (Acute) Respiratory failure (Acute) Unresponsive (Acute) Encephalopathy acute 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 Venous ulcer of right leg (Acute) Venous ulcer of left leg Acute kidney injury CKD (chronic kidney disease) stage 4, GFR 15-29 ml/min Encounter for pre-operative examination Fatigue Left arm swelling Open wound of ankle (Acute) Gastritis Gastric ulcer Hemorrhagic disorder due to extrinsic circulating anticoagulants Thrombocytopenia Hemorrhagic shock Acute blood loss anemia Hypotension (Acute) Acute GI bleeding (Acute) Anemia (Acute) Generalized weakness (Acute) Traumatic open wound of great toe with delayed healing Traumatic open wound of right lower leg (Acute) Traumatic open wound of left lower leg (Acute) Mass of scalp Pressure ulcer of dorsum of left foot, stage 3 (Acute) Pressure ulcer of toe of right foot, stage 3 (Acute) Pressure ulcer of right foot, stage 2 Pressure ulcer of left foot, stage 2 Degenerative arthritis of knee, bilateral Chronic renal failure, stage 3a Pressure sore on buttocks Cellulitis of left leg (Acute) Vitamin D deficiency (Acute) Hypertension (Acute) Atrial fibrillation (Acute) Arthritis (Acute) Non-pressure chronic ulcer of calf, 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) Edema of left lower extremity (Chronic) Chronic venous insufficiency (Chronic) Cellulitis of right lower extremity (Acute) Pacemaker (Acute) Medical History History of blood transfusion Osteomyelitis of toe of right foot Gastric ulcer History of recent hospitalization 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 Pneumonia due to COVID-19 virus COVID-19 Pressure ulcer of left foot, stage 3 Venous stasis ulcer History of basal cell carcinoma HTN (hypertension) Pacemaker History of myocardial infarction Slow to wake up after anesthesia Osteoarthritis Osteopenia Multinodular goiter Hyperthyroidism Atrial fibrillation, chronic Chronic venous insufficiency Surgical History History of endoscopy History of amputation of toe (~01/2019) H/O excision of mass (01/29/23) Status post ablation of incompetent vein using laser History of excision of lesion (01/23/11) S/P Mohs surgery for basal cell carcinoma History of tonsillectomy and adenoidectomy History of arthroscopy of knee History of cataract surgery Family History Mother Cardiac disorder Father Hypertension Denies family history of Ovarian cancer Prostate cancer Myocardial infarction Breast cancer Colorectal cancer Social History Smoking Status: Never smoker Second Hand Exposure: No; Hx Alcohol Use: No Hx Substance Use: No Preferred Language: Occitan Communication Ability: Effective Visual Impairment: No Limitations Hearing Ability: Normal Top Trimmer Required: No Beliefs That Will Affect Care: None marital status: / Current Living Situation: Alone current occupational status: employed current occupation: [employer] How many Children do You have: 3 Feels Safe at Home: Yes Childhood Exposure to Second-Hand Smoke: No Diet: regular Diet Comment: regular caffeine: No during the past year weight has: remained stable Dental Care, Regularly: Yes Physical Activity Frequency: Does not Exercise Seatbelt Use: always Sunscreen Use: Yes Assistive Devices: Walker Allergies Allergies Allergy/AdvReac Type Severity Reaction Status Date / Time latex Allergy Intermediate Rash Verified 02/26/25 20:50 Penicillins Allergy Intermediate Rash, Verified 02/26/25 20:50 heart palpitations Sulfa (Sulfonamide Allergy Intermediate rash Verified 02/26/25 20:50 Antibiotics) cephalexin AdvReac Intermediate Diarrhea Verified 02/26/25 20:50 Home Meds Home Medications Medication Instructions Recorded Confirmed dronedarone 400 mg tablet (Multaq) 400 mg PO BID 06/19/18 02/26/25 nitroglycerin 0.4 mg sublingual 0.4 mg sublingual Q5M PRN Chest 06/19/18 02/26/25 tablet (Nitrostat) Pain apixaban 2.5 mg tablet (Eliquis) 2.5 mg PO BID 06/01/24 02/26/25 loperamide 2 mg capsule (Imodium 2 mg PO Q4H PRN Diarrhea 02/09/25 02/26/25 A-D) albuterol sulfate 90 mcg/actuation 2 puff inhalation Q6H PRN 02/26/25 02/26/25 aerosol inhaler (Ventolin HFA) DYSPNEA/WHEEZING benzonatate 100 mg capsule 100 mg PO Q8H PRN Cough 02/26/25 02/26/25 meloxicam 7.5 mg tablet 7.5 mg PO DAILY 02/26/25 02/26/25 metoprolol succinate 25 mg 25 mg PO QAM 02/26/25 02/26/25 tablet,extended release 24 hr thiamine HCl (vitamin B1) 100 mg 100 mg PO DAILY 02/26/25 02/26/25 tablet (Vitamin B-1) Previous Rx's Medication Instructions Recorded Lift Chair #1 ea 09/27/22 nebulizers #1 ea 02/18/25 Results & Data (ED) Vital Signs Vital Signs - 24 hr 02/26/25 19:12 02/26/25 19:12 02/26/25 19:12 Temperature 36.7 C Temperature Source Oral Pulse Rate 72 Pulse Rate from SpO2 Sensor Pulse Rhythm Regular Pulse Strength Normal Respiratory Rate 22 Respiratory Effort / Characteristics Non-Labored Spontaneous Non-Labored Spontaneous Respiratory Depth Normal Normal Respiratory Pattern Regular Regular Blood Pressure 129/92 Blood Pressure Mean 104 Blood Pressure Position Lying Pulse Oximetry 96 99 Oxygen Delivery Method Room Air Room Air Room Air Oxygen Flow Rate 0 Sepsis Recent Fever Within 48 Hours No Sepsis New/Unexplained Change in Mental Status No Sepsis Action Taken by Nursing No Action Required 02/26/25 19:30 02/26/25 19:33 02/26/25 19:42 Temperature Temperature Source Pulse Rate 66 80 Pulse Rate from SpO2 Sensor Pulse Rhythm Pulse Strength Respiratory Rate 14 Respiratory Effort / Characteristics Respiratory Depth Respiratory Pattern Blood Pressure 129/94 Blood Pressure Mean 100 Blood Pressure Position Pulse Oximetry Oxygen Delivery Method Oxygen Flow Rate Sepsis Recent Fever Within 48 Hours Sepsis New/Unexplained Change in Mental Status Sepsis Action Taken by Nursing 02/26/25 19:42 02/26/25 19:54 02/26/25 20:00 Temperature Temperature Source Pulse Rate 80 57 L Pulse Rate from SpO2 Sensor 80 Pulse Rhythm Pulse Strength Respiratory Rate 21 20 Respiratory Effort / Characteristics Respiratory Depth Respiratory Pattern Blood Pressure 147/85 H Blood Pressure Mean 104 Blood Pressure Position Pulse Oximetry 99 98 Oxygen Delivery Method Room Air Oxygen Flow Rate Sepsis Recent Fever Within 48 Hours Sepsis New/Unexplained Change in Mental Status Sepsis Action Taken by Nursing 02/26/25 20:00 02/26/25 20:00 02/26/25 20:24 Temperature Temperature Source Pulse Rate 59 L Pulse Rate from SpO2 Sensor 62 Pulse Rhythm Pulse Strength Respiratory Rate 16 Respiratory Effort / Characteristics Respiratory Depth Respiratory Pattern Blood Pressure 147/85 H 147/85 H Blood Pressure Mean 104 104 Blood Pressure Position Pulse Oximetry 96 Oxygen Delivery Method Oxygen Flow Rate Sepsis Recent Fever Within 48 Hours Sepsis New/Unexplained Change in Mental Status Sepsis Action Taken by Nursing 02/26/25 20:30 02/26/25 20:30 02/26/25 20:30 Temperature Temperature Source Pulse Rate 57 L Pulse Rate from SpO2 Sensor 64 Pulse Rhythm Pulse Strength Respiratory Rate 26 H Respiratory Effort / Characteristics Respiratory Depth Respiratory Pattern Blood Pressure 109/83 109/83 Blood Pressure Mean 89 89 Blood Pressure Position Pulse Oximetry 97 Oxygen Delivery Method Oxygen Flow Rate Sepsis Recent Fever Within 48 Hours Sepsis New/Unexplained Change in Mental Status Sepsis Action Taken by Nursing 02/26/25 20:45 02/26/25 20:51 02/26/25 21:09 Temperature Temperature Source Pulse Rate 72 69 66 Pulse Rate from SpO2 Sensor 68 66 64 Pulse Rhythm Pulse Strength Respiratory Rate 20 24 20 Respiratory Effort / Characteristics Respiratory Depth Respiratory Pattern Blood Pressure Blood Pressure Mean Blood Pressure Position Pulse Oximetry 97 97 96 Oxygen Delivery Method Oxygen Flow Rate Sepsis Recent Fever Within 48 Hours Sepsis New/Unexplained Change in Mental Status Sepsis Action Taken by Nursing 02/26/25 21:15 02/26/25 21:24 02/26/25 21:54 Temperature Temperature Source Pulse Rate 59 L 71 66 Pulse Rate from SpO2 Sensor 79 80 67 Pulse Rhythm Pulse Strength Respiratory Rate 18 29 H 20 Respiratory Effort / Characteristics Respiratory Depth Respiratory Pattern Blood Pressure 113/82 Blood Pressure Mean 92 Blood Pressure Position Pulse Oximetry 97 97 96 Oxygen Delivery Method Oxygen Flow Rate Sepsis Recent Fever Within 48 Hours Sepsis New/Unexplained Change in Mental Status Sepsis Action Taken by Nursing 02/26/25 22:01 02/26/25 22:01 02/26/25 22:06 Temperature Temperature Source Pulse Rate 80 Pulse Rate from SpO2 Sensor 80 Pulse Rhythm Pulse Strength Respiratory Rate 24 Respiratory Effort / Characteristics Respiratory Depth Respiratory Pattern Blood Pressure 109/78 109/78 Blood Pressure Mean 86 86 Blood Pressure Position Pulse Oximetry 97 Oxygen Delivery Method Oxygen Flow Rate Sepsis Recent Fever Within 48 Hours Sepsis New/Unexplained Change in Mental Status Sepsis Action Taken by Nursing 02/26/25 22:12 02/26/25 22:21 02/26/25 22:27 Temperature Temperature Source Pulse Rate 56 L 62 68 Pulse Rate from SpO2 Sensor 80 65 80 Pulse Rhythm Pulse Strength Respiratory Rate 23 16 27 H Respiratory Effort / Characteristics Respiratory Depth Respiratory Pattern Blood Pressure 109/78 Blood Pressure Mean 88 Blood Pressure Position Pulse Oximetry 97 97 97 Oxygen Delivery Method Oxygen Flow Rate Sepsis Recent Fever Within 48 Hours Sepsis New/Unexplained Change in Mental Status Sepsis Action Taken by Nursing 02/26/25 22:30 02/26/25 22:45 Temperature Temperature Source Pulse Rate 62 Pulse Rate from SpO2 Sensor 70 Pulse Rhythm Pulse Strength Respiratory Rate 13 Respiratory Effort / Characteristics Respiratory Depth Respiratory Pattern Blood Pressure 113/78 Blood Pressure Mean 90 Blood Pressure Position Pulse Oximetry 98 Oxygen Delivery Method Oxygen Flow Rate Sepsis Recent Fever Within 48 Hours Sepsis New/Unexplained Change in Mental Status Sepsis Action Taken by Nursing Laboratory Data 02/26/25 19:32 02/26/25 19:32 Lab Results 02/26/25 02/26/25 Range/Units 19:32 21:39 WBC 3.80 L (4.8-10.8) K/ul RBC 3.76 L (4.20-5.40) M/uL Hgb 10.7 L (12.0-16.0) g/dl Hct 33.9 L (37.0-47.0) % MCV 90.2 (80.0-100.0) fL MCH 28.5 (25.0-34.0) pg MCHC 31.6 L (32.0-36.0) g/dL RDW Std Deviation 56.6 H (36.4-46.3) fL RDW Coeff of Caterina 17.3 H (11.5-14.5) % Plt Count 90 L (130-400) K/uL MPV 12.5 H (9.4-12.4) fL Immature Gran % (Auto) 0.5 % Neut % (Auto) 54.2 % Lymph % (Auto) 22.1 % [place] % (Auto) 19.5 % Eos % (Auto) 2.9 % Baso % (Auto) 0.8 % Neut # (Auto) 2.06 (1.40-6.50) K/uL Lymph # (Auto) 0.84 L (1.20-3.40) K/uL [place] # (Auto) 0.74 H (0.11-0.59) K/uL Eos # (Auto) 0.11 (0.00-0.50) K/uL Baso # (Auto) 0.03 (0.00-0.20) K/uL Immature Gran # (Auto) 0.02 (0.01-0.20) K/uL PT 12.6 H (9.0-12.0) Seconds INR 1.2 H (0.9-1.1) VBG pH 7.33 L (7.36-7.41) VBG pCO2 41 (38-50) mmHg VBG pO2 51 mmHg VBG HCO3 22 mmol/L VBG O2 Saturation 81.6 % VBG Base Excess -4.1 mEq/L Sodium 140 (136-145) mmol/L Potassium 4.6 (3.5-5.1) mmol/L Chloride 109 H (98-107) mmol/L Carbon Dioxide 23 (21-32) mmol/L Anion Gap 8 (3-11) BUN 45 H (6-23) mg/dl Creatinine 1.74 H (0.6-1.2) mg/dl Est Cr Clr Drug Dosing 25.8 ml/min eGFR 27.70 BUN/Creatinine Ratio 25.9 H (10-20) Glucose 116 H (70-99(Fasting)) mg/dl Calcium 8.4 L (8.6-10.3) mg/dl Magnesium 2.3 (1.7-2.4) mg/dl Total Bilirubin 0.9 (0.2-1.0) mg/dl AST 18 (13-39) U/L ALT 18 (7-52) U/L Alkaline Phosphatase 106 H (34-104) U/L Troponin I High Sens 11.9 (0-14) pg/ml B-Natriuretic Peptide 657 H (0-100) pg/ml Total Protein 6.8 (6.0-8.3) gm/dl Albumin 3.6 (3.4-5.0) gm/dl Globulin 3.2 (2.5-4.0) gm/dl Albumin/Globulin Ratio 1.1 (0.9-2) SARS-CoV-2 (PCR) NEGATIVE (Negative) Influenza Type A (PCR) Negative (Neg) Influenza Type B (PCR) Negative (Neg) RSV (RT-PCR) Negative (Neg) Administered Medications Discontinued Medications Furosemide (Furosemide 40 Mg/4 Ml Vial) 40 mg IV ONE ONE Stop: 02/26/25 21:53 Last Admin: 02/26/25 22:01 Dose: 40 mg Documented By: IGOR Imaging Data Radiologist's Impression: Chest X-Ray 02/26/25 19:54 EXAM: XR chest 1V portable CLINICAL HISTORY: Dyspnea. TECHNIQUE: An X-ray image of the chest is obtained in AP projection. Expiratory film with rotated patient. COMPARISON: Chest x-ray dated 12/06/2024 and 12/01/2023, and 10/02/2022. FINDINGS: Pulmonary Parenchyma: Lungs are clear bilaterally. No evidence of consolidation, collapse, or focal opacities. No pulmonary nodules are identified. Right minimal pleural effusion or pleural thickening. (possible masked left pleural recess with cardiomegaly and centralization of patient) No pneumothorax. Heart and Mediastinum: Heart size increases. No mediastinal widening or masses. No hilar or mediastinal lymphadenopathy. Intact dual-chamber implantable cardioverter defibrillator. Bony Thorax: Bony thorax appears intact without fractures or deformities. Shoulder bony hypertrophy. Soft Tissues: Soft tissues overlying the chest wall are unremarkable. IMPRESSION: Cardioemgaly with new right minimal pleural effusion (possible masked left pleural recess with cardiomegaly and rotated patient ) suggests clinical assessment. (new) Electronically signed by Chan Cervantes 02-26-2025 9:49 PM Discharge Plan Visit Data Chief Complaint: Shortness of Breath/Dyspnea Stated Complaint: SOB ED Provider: Lynette Perdomo Discharge Problem: Acute dyspnea, Acute exacerbation of CHF (congestive heart failure), Acute kidney injury superimposed on chronic kidney disease, Elevated brain natriuretic peptide (BNP) level Condition: Fair Forms Stand Alone Forms: [facility] Prescriptions Prescriptions: No Action dronedarone [Multaq] 400 mg tablet 400 mg PO BID nitroglycerin [Nitrostat] 0.4 mg tablet, sublingual 0.4 mg SL Q5M PRN (Reason: Chest Pain) Patient Comments: never had to use Eliquis 2.5 mg tablet 2.5 mg PO BID Hold Instructions: Resume on 12/30/24. resume date unclear - please resume when hematuria has cleared (DME) Lift Chair Misc See Rx Instructions .Route Qty: 1 0RF Rx Instructions: As directed (DME) nebulizers Misc See Rx Instructions .Route Qty: 1 0RF Rx Instructions: As directed loperamide [Imodium A-D] 2 mg capsule 2 mg PO Q4H PRN (Reason: Diarrhea) Rx Instructions: ENDS 03/06/25. administer after each loose stool until symptoms controlled; do not exceed 8 mg per 24 hrs thiamine HCl (vitamin B1) [Vitamin B-1] 100 mg Tablet 100 mg PO DAILY meloxicam 7.5 mg Tablet 7.5 mg PO DAILY benzonatate 100 mg Capsule 100 mg PO Q8H PRN (Reason: Cough) albuterol sulfate [Ventolin HFA] 90 mcg/actuation Hfa Aerosol Inhaler 2 puff INHALATION Q6H PRN (Reason: DYSPNEA/WHEEZING) metoprolol succinate 25 mg tablet extended release 24 hr 25 mg PO QAM Referrals Referrals: Kelvin Vee DO [Primary Care Provider] -
[2025-02-26 20:07] LABS: Basophils # (auto) 0.03 K/uL (0.00-0.20); Basophils % (auto) 0.8 %; Eosinophils # (auto) 0.11 K/uL (0.00-0.50); Eosinophils % (auto) 2.9 %; Hematocrit (blood only) 33.9 % (37.0-47.0); Hemoglobin 10.7 g/dl (12.0-16.0); Immature Granulocytes # (auto) 0.02 K/uL (0.01-0.20); Immature Granulocytes % (auto) 0.5 %; Lymphocytes # (auto) 0.84 K/uL (1.20-3.40); Lymphocytes % (auto) 22.1 %; Mean Corpuscular Hemoglobin 28.5 pg (25.0-34.0); Mean Corpuscular Hgb Conc 31.6 g/dL (32.0-36.0); Mean Corpuscular Volume 90.2 fL (80.0-100.0); Mean Platelet Volume 12.5 fL (9.4-12.4); Monocytes # (auto) 0.74 K/uL (0.11-0.59); Monocytes % (auto) 19.5 %; Neutrophils # (auto) 2.06 K/uL (1.40-6.50); Neutrophils % (auto) 54.2 %; Platelet Count 90 K/uL (130-400); RDW Coefficient of Variation 17.3 % (11.5-14.5); RDW Standard Deviation 56.6 fL (36.4-46.3); Red Blood Count 3.76 M/uL (4.20-5.40)
[2025-02-26 20:09] LABS: Base Excess VBG -4.1 mEq/L; HCO3 VBG 22 mmol/L; Oxygen Saturation VBG 81.6 %; PCO2 VBG 41 mmHg (38-50); PO2 VBG 51 mmHg; pH VBG 7.33 (7.36-7.41)
[2025-02-26 20:14] LABS: Albumin Globulin Ratio 1.1 (0.9-2); Albumin Level 3.6 gm/dl (3.4-5.0); BUN Creatinine Ratio 25.9 (10-20); Bilirubin,Total 0.9 mg/dl (0.2-1.0); Calcium 8.4 mg/dl (8.6-10.3); Creatinine Clr Calc Pharmacy 25.8 ml/min; Globulin 3.2 gm/dl (2.5-4.0); Magnesium 2.3 mg/dl (1.7-2.4); Potassium 4.6 mmol/L (3.5-5.1); Total Protein 6.8 gm/dl (6.0-8.3)
[2025-02-26 20:20] LABS: Troponin I High Sensitivity 11.9 pg/ml (0-14)
[2025-02-26 20:34] LABS: INR 1.2 (0.9-1.1); Prothrombin Time 12.6 Seconds (9.0-12.0)
--- NOTE | 2025-02-26 21:49 | XRay Report ---
EXAM: XR chest 1V portable CLINICAL HISTORY: Dyspnea. TECHNIQUE: An X-ray image of the chest is obtained in AP projection. Expiratory film with rotated patient. COMPARISON: Chest x-ray dated 12/06/2024 and 12/01/2023, and 10/02/2022. FINDINGS: Pulmonary Parenchyma: Lungs are clear bilaterally. No evidence of consolidation, collapse, or focal opacities. No pulmonary nodules are identified. Right minimal pleural effusion or pleural thickening. (possible masked left pleural recess with cardiomegaly and centralization of patient) No pneumothorax. Heart and Mediastinum: Heart size increases. No mediastinal widening or masses. No hilar or mediastinal lymphadenopathy. Intact dual-chamber implantable cardioverter defibrillator. Bony Thorax: Bony thorax appears intact without fractures or deformities. Shoulder bony hypertrophy. Soft Tissues: Soft tissues overlying the chest wall are unremarkable. IMPRESSION: Cardioemgaly with new right minimal pleural effusion (possible masked left pleural recess with cardiomegaly and rotated patient ) suggests clinical assessment. (new) Electronically signed by Chan Cervantes 02-26-2025 9:49 PM
[2025-02-26] MEDS: FUROSEMIDE 40 MG/4 ML VIAL IV ONE (22:01)
[2025-02-26 22:30] LABS: Influenza A virus by PCR Negative (Neg); Influenza B virus by PCR Negative (Neg); RSV by PCR Negative (Neg); SARS CoV2 RNA(COVID-19) Ceph NEGATIVE (Negative)
[2025-02-26] MEDS: DRONEDARONE HCL 400 MG TAB PO STA (23:42)
[2025-02-26] MEDS: APIXABAN 2.5 MG TAB PO STA (23:42)
--- NOTE | 2025-02-27 01:29 | History & Physical Report ---
Date of Service February 26, 2025 Assessment & Plan (1) Acute exacerbation of CHF (congestive heart failure): (2) Atrial fibrillation: (3) HTN (hypertension): Plan 89-year-old female with history of hypertension, atrial fibrillation with dual- chamber pacemaker in place presenting with several weeks of progressive shortness of breath, dyspnea exertion, decreased exercise intolerance and bilateral lower extremity edema. Suspect acute exacerbation of CHF. Patient with dual-chamber pacer in place. Thinks that it may be time for her to have a battery change. Was told by cardiology that when her pacer "started to go" she would have a marked decrease in energy which patient feels she is experiencing now #Acute exacerbation of CHFpatient had a 2D echo performed on December 09, 2024 which revealed a left ventricular ejection fraction of 60 to 65% with mild concentric LVH, left atrial mildly dilated. moderate aortic sclerosis without significant aortic valve stenosis. Mild aortic regurg. Mild mitral regurg Patient is not on any diuretic therapy Reports she has never had volume overload in the past Admit to PCU Check 2D echo Perform pacer interrogation Continue diuresis with Lasix 40 mg IV twice daily Will monitor BMP every 12 hours. Patient with CKD. Baseline creatinine presently 1.74 Monitor intake and output Monitor daily weights Cardiology consultation appreciated #Atrial fibrillationrate controlled, patient anticoagulated on apixaban Pacer interrogation Cardiology consultation appreciated Continue apixaban 2.5 mg p.o. twice daily Continue Multaq 400 mg p.o. twice daily Continue metoprolol 25 mg p.o. every morning #Hypertensionblood pressure is at goal presently Continue metoprolol Continue to monitor #Deconditioningpatient has had fairly prolonged medical course since an ICU admission for septic shock secondary to an infected right obstructing renal stone. [facility] She has received some physical therapy and Occupational Therapy and is very motivated to continue with her exercises. 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 PT/OT evaluation, hopefully can continue therapy while inpatient #Hoarsenesspatient reports her voice has been intermittently hoarse since being extubated in November. Possibly some vocal cord involvement? Daughter expresses desire for further evaluation of this issue after acute issues resolve Admission and Anticipated Discharge Date Admission Date: February 26, 2025 History of Present Illness Chief Complaint: Shortness of breath Primary Care Provider: Kelvin Vee DO Radha Floyd is a very pleasant 89-year-old female with history of atrial fibrillation on apixaban anticoagulation, s/p dual chamber pacemaker placement, hypertension, hypothyroidism presenting with feeling "blah". Patient endorses over the last 2 weeks having fairly persistent nausea as well as shortness of breath at rest and with very minimal exertion, decreased exercise tolerance and markedly worsening bilateral lower extremity and abdominal wall edema. The symptoms have acutely worsened over the last 2 days. Patient reports orthopnea as well as paroxysmal nocturnal dyspnea. She does not monitor her weight but does feel like she has gained quite a bit and fluid. No report of chest pain or cough. No vomiting or diarrhea. Patient has had a very prolonged medical course starting in November 2024 when she was admitted here to the intensive care unit for sepsis secondary to infected obstructing right renal stone. Patient was ultimately discharged to [facility] on December 16, 2024. She stayed there for approximately 18 days then was moved to [facility], and then moved to [facility] and is presently at [facility] on respite care. In the ER patient afebrile, hemodynamically stable and saturating well on room air. She is notably tachypneic with conversational dyspnea Allergies Allergy/AdvReac Type Severity Reaction Status Date / Time latex Allergy Intermediate Rash Verified 02/26/25 20:50 Penicillins Allergy Intermediate Rash, Verified 02/26/25 20:50 heart palpitations Sulfa (Sulfonamide Allergy Intermediate rash Verified 02/26/25 20:50 Antibiotics) cephalexin AdvReac Intermediate Diarrhea Verified 02/26/25 20:50 Home Medications Medication Instructions Recorded Confirmed Type dronedarone 400 mg tablet (Multaq) 400 mg PO BID 06/19/18 02/26/25 History nitroglycerin 0.4 mg sublingual 0.4 mg sublingual Q5M PRN Chest 06/19/18 02/26/25 History tablet (Nitrostat) Pain Lift Chair #1 ea 09/27/22 12/11/24 Rx apixaban 2.5 mg tablet (Eliquis) 2.5 mg PO BID 06/01/24 02/26/25 History loperamide 2 mg capsule (Imodium 2 mg PO Q4H PRN Diarrhea 02/09/25 02/26/25 History A-D) nebulizers #1 ea 02/18/25 Rx albuterol sulfate 90 mcg/actuation 2 puff inhalation Q6H PRN 02/26/25 02/26/25 History aerosol inhaler (Ventolin HFA) DYSPNEA/WHEEZING benzonatate 100 mg capsule 100 mg PO Q8H PRN Cough 02/26/25 02/26/25 History meloxicam 7.5 mg tablet 7.5 mg PO DAILY 02/26/25 02/26/25 History metoprolol succinate 25 mg 25 mg PO QAM 02/26/25 02/26/25 History tablet,extended release 24 hr thiamine HCl (vitamin B1) 100 mg 100 mg PO DAILY 02/26/25 02/26/25 History tablet (Vitamin B-1) Past Med/Surg History Problem List (Updated 02/26/25 @ 22:59 by Alicia Luu DO) Elevated brain natriuretic peptide (BNP) level (Acute) Acute kidney injury superimposed on chronic kidney disease (Acute) Acute exacerbation of CHF (congestive heart failure) (Acute) Acute dyspnea (Acute) Nephrolithiasis, uric acid Hematuria Hypothermia Septic shock Right ureteral calculus Kidney stone on right side (Acute) Respiratory failure (Acute) Unresponsive (Acute) Encephalopathy acute 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 Venous ulcer of right leg (Acute) Venous ulcer of left leg Acute kidney injury CKD (chronic kidney disease) stage 4, GFR 15-29 ml/min Encounter for pre-operative examination Fatigue Left arm swelling Open wound of ankle (Acute) Gastritis Gastric ulcer Hemorrhagic disorder due to extrinsic circulating anticoagulants Thrombocytopenia Hemorrhagic shock Acute blood loss anemia Hypotension (Acute) Acute GI bleeding (Acute) Anemia (Acute) Generalized weakness (Acute) Traumatic open wound of great toe with delayed healing Traumatic open wound of right lower leg (Acute) Traumatic open wound of left lower leg (Acute) Mass of scalp Pressure ulcer of dorsum of left foot, stage 3 (Acute) Pressure ulcer of toe of right foot, stage 3 (Acute) Pressure ulcer of right foot, stage 2 Pressure ulcer of left foot, stage 2 Degenerative arthritis of knee, bilateral Chronic renal failure, stage 3a Pressure sore on buttocks Cellulitis of left leg (Acute) Vitamin D deficiency (Acute) Hypertension (Acute) Atrial fibrillation (Acute) Arthritis (Acute) Non-pressure chronic ulcer of calf, 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) Edema of left lower extremity (Chronic) Chronic venous insufficiency (Chronic) Cellulitis of right lower extremity (Acute) Pacemaker (Acute) Medical History History of blood transfusion Osteomyelitis of toe of right foot Gastric ulcer History of recent hospitalization 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 Pneumonia due to COVID-19 virus COVID-19 Pressure ulcer of left foot, stage 3 Venous stasis ulcer History of basal cell carcinoma HTN (hypertension) Pacemaker History of myocardial infarction Slow to wake up after anesthesia Osteoarthritis Osteopenia Multinodular goiter Hyperthyroidism Atrial fibrillation, chronic Chronic venous insufficiency Surgical History History of endoscopy History of amputation of toe (~01/2019) H/O excision of mass (01/29/23) Status post ablation of incompetent vein using laser History of excision of lesion (01/23/11) S/P Mohs surgery for basal cell carcinoma History of tonsillectomy and adenoidectomy History of arthroscopy of knee History of cataract surgery Family History Mother Cardiac disorder Father Hypertension Denies family history of Ovarian cancer Prostate cancer Myocardial infarction Breast cancer Colorectal cancer Social History Smoking Status: Never smoker Second Hand Exposure: No; Hx Alcohol Use: No Hx Substance Use: No Preferred Language: Portuguese Communication Ability: Effective Visual Impairment: No Limitations Hearing Ability: Normal 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 Beliefs That Will Affect Care: None marital status: / Current Living Situation: Personal Care Facility Current Living Situation Comment: [facility] current occupational status: employed current occupation: [employer] How many Children do You have: 3 Other Information That Helps Us Care for You: No Feels Safe at Home: Yes Safety Concerns: Feels Safe At This Time Childhood Exposure to Second-Hand Smoke: No Diet: regular Diet Comment: regular caffeine: No during the past year weight has: remained stable Dental Care, Regularly: Yes Physical Activity Frequency: Does not Exercise Seatbelt Use: always Sunscreen Use: Yes Assistive Devices: Walker Review of Systems Review of Systems: All systems reviewed & are unremarkable except as noted in HPI & below Physical Exam Physical Exam: General: patient resting comfortably, NAD, non-toxic in appearance, AA&O x 4, +Conversational dyspnea, patient becomes quite SOB with sitting up and minimal movement in the bed Skin: warm, dry, intact, no rashes or lesions HEENT: NC/AT, PERRL, EOMI, anicteric sclera, conjunctiva without injection, external ear normal to inspection and nontender, nares patent, moist mucus membranes, dentition intact, no oropharyngeal lesions, neck supple, trachea midline, no LAD, no thyromegaly, no JVD Heart: +S1/S2, irregularly irregular, distant heart tones, no m/r/g Lungs: diminished breath sounds bilateral bases, no rhonchi or wheezes Abd: +BS, soft, NT/ND, no masses/organomegaly/ascites, +abdominal wall edema Ext: warm, 2+ pulses in UE/LE bilaterally, no clubbing/cyanosis, 3+ pitting edema of bilateral LE to thighs and abdominal wall Neuro: nonfocal, patient AA&O x 4, speech intact, no facial droop, moving all extremities on command with equal strength 5/5 Results & Data Results & Data Vital Signs (Past 12 Hours) Vital Signs Temp Pulse Pulse Resp BP BP Pulse Ox 02/27/25 00:54 80 18 115/85 98 02/26/25 23:39 74 02/26/25 23:00 68 25 H 121/75 98 02/26/25 22:45 62 13 98 02/26/25 22:30 113/78 02/26/25 22:27 68 27 H 97 02/26/25 22:21 62 16 97 02/26/25 22:12 56 L 23 109/78 97 02/26/25 22:06 80 24 97 02/26/25 22:01 109/78 02/26/25 22:01 109/78 02/26/25 21:54 66 20 96 02/26/25 21:24 71 29 H 113/82 97 02/26/25 21:15 59 L 18 97 02/26/25 21:09 66 20 96 02/26/25 20:51 69 24 97 02/26/25 20:45 72 20 97 02/26/25 20:30 109/83 02/26/25 20:30 109/83 02/26/25 20:30 57 L 26 H 97 02/26/25 20:24 59 L 16 96 02/26/25 20:00 147/85 H 02/26/25 20:00 147/85 H 02/26/25 20:00 147/85 H 02/26/25 19:54 57 L 20 98 02/26/25 19:42 80 21 99 02/26/25 19:42 80 02/26/25 19:33 66 14 02/26/25 19:30 129/94 02/26/25 19:12 99 02/26/25 19:12 36.7 C 72 22 129/92 96 02/26/25 19:12 O2 Del Method O2 Flow Rate 02/27/25 00:54 Room Air 02/26/25 23:39 02/26/25 23:00 Room Air 02/26/25 22:45 02/26/25 22:30 02/26/25 22:27 02/26/25 22:21 02/26/25 22:12 02/26/25 22:06 02/26/25 22:01 02/26/25 22:01 02/26/25 21:54 02/26/25 21:24 02/26/25 21:15 02/26/25 21:09 02/26/25 20:51 02/26/25 20:45 02/26/25 20:30 02/26/25 20:30 02/26/25 20:30 02/26/25 20:24 02/26/25 20:00 02/26/25 20:00 02/26/25 20:00 02/26/25 19:54 Room Air 02/26/25 19:42 02/26/25 19:42 02/26/25 19:33 02/26/25 19:30 02/26/25 19:12 Room Air 0 02/26/25 19:12 Room Air 02/26/25 19:12 Room Air Laboratory Results Laboratory Results WBC 3.80 K/ul (4.8-10.8) L 02/26/25 19:32 RBC 3.76 M/uL (4.20-5.40) L 02/26/25 19:32 Hgb 10.7 g/dl (12.0-16.0) L 02/26/25 19: Hct 33.9 % (37.0-47.0) L 02/26/25 19: MCV 90.2 fL (80.0-100.0) 02/26/25: MCH 28.5 pg (25.0-34.0) 02/26/25: MCHC 31.6 g/dL (32.0-36.0) L 02/26/25: RDW Std Deviation 56.6 fL (36.4-46.3) H 02/26/25: RDW Coeff of Caterina 17.3 % (11.5-14.5) H 02/26/25: Plt Count 90 K/uL (130-400) L 02/26/25: MPV 12.5 fL (9.4-12.4) H 02/26/25 19: Immature Gran % (Auto) 0.5 % 02/26/25: Neut % (Auto) 54.2 % 02/26/25:32 Lymph % (Auto) 22.1 % 02/26/25: [place] % (Auto) 19.5 % 02/26/25: Eos % (Auto) 2.9 % 02/26/25: Baso % (Auto) 0.8 % 02/26/25: Neut # (Auto) 2.06 K/uL (1.40-6.50) 02/26/25 19:32 Lymph # (Auto) 0.84 K/uL (1.20-3.40) L 02/26/25:32 [place] # (Auto) 0.74 K/uL (0.11-0.59) H 02/26/25 19: Eos # (Auto) 0.11 K/uL (0.00-0.50) 02/26/25: Baso # (Auto) 0.03 K/uL (0.00-0.20) 02/26/25: Immature Gran # (Auto) 0.02 K/uL (0.01-0.20) 02/26/25 19: PT 12.6 Seconds (9.0-12.0) H 02/26/25 19:32 INR 1.2 (0.9-1.1) H 02/26/25 19:32 VBG pH 7.33 (7.36-7.41) L 02/26/25 19:32 VBG pCO2 41 mmHg (38-50) 02/26/25 19:32 VBG pO2 51 mmHg 02/26/25 19:32 VBG HCO3 22 mmol/L 02/26/25 19:32 VBG O2 Saturation 81.6 % 02/26/25 19:32 VBG Base Excess -4.1 mEq/L 02/26/25 19:32 Sodium 140 mmol/L (136-145) 02/26/25 19:32 Potassium 4.6 mmol/L (3.5-5.1) 02/26/25 19:32 Chloride 109 mmol/L (98-107) H 02/26/25 19:32 Carbon Dioxide 23 mmol/L (21-32) 02/26/25 19:32 Anion Gap 8 (3-11) 02/26/25 19:32 BUN 45 mg/dl (6-23) H 02/26/25 19:32 Creatinine 1.74 mg/dl (0.6-1.2) H 02/26/25 19:32 Est Cr Clr Drug Dosing 25.8 ml/min 02/26/25 19:32 eGFR 27.70 02/26/25 19:32 BUN/Creatinine Ratio 25.9 (10-20) H 02/26/25 19:32 Glucose 116 mg/dl (70-99(Fasting)) H 02/26/25 19:32 Calcium 8.4 mg/dl (8.6-10.3) L 02/26/25 19:32 Magnesium 2.3 mg/dl (1.7-2.4) 02/26/25 19:32 Total Bilirubin 0.9 mg/dl (0.2-1.0) 02/26/25 19:32 AST 18 U/L (13-39) 02/26/25 19:32 ALT 18 U/L (7-52) 02/26/25 19:32 Alkaline Phosphatase 106 U/L (34-104) H 02/26/25 19:32 Troponin I High Sens 11.9 pg/ml (0-14) 02/26/25 19:32 B-Natriuretic Peptide 657 pg/ml (0-100) H 02/26/25 19:32 Total Protein 6.8 gm/dl (6.0-8.3) 02/26/25 19:32 Albumin 3.6 gm/dl (3.4-5.0) 02/26/25 19:32 Globulin 3.2 gm/dl (2.5-4.0) 02/26/25 19:32 Albumin/Globulin Ratio 1.1 (0.9-2) 02/26/25 19:32 TSH 1.222 uIu/ml (0.300-4.500) 02/26/25 19:32 Urine Color Yellow 02/27/25 02:15 Urine Appearance Clear (Clear) 02/27/25 02:15 Urine pH 5.0 (4.5-7.5) 02/27/25 02:15 Ur Specific [place] 1.007 (1.000-1.030) 02/27/25 02:15 Urine Protein Negative (Negative) 02/27/25 02:15 Urine Glucose (UA) Negative (Negative) 02/27/25 02:15 Urine Ketones Negative (Negative) 02/27/25 02:15 Urine Blood Negative (Negative) 02/27/25 02:15 Urine Nitrite Negative (Negative) 02/27/25 02:15 Urine Bilirubin Negative (Negative) 02/27/25 02:15 Urine Urobilinogen Negative (Negative) 02/27/25 02:15 Ur Leukocyte Esterase 1+ (Negative) H 02/27/25 02:15 Urine WBC (Auto) 0-5 /hpf (0-5) 02/27/25 02:15 Urine RBC (Auto) 0-2 /hpf (0-2) 02/27/25 02:15 U Hyaline Cast (Auto) 0-2 /lpf (0-2) 02/27/25 02:15 U Epithel Cells (Auto) 0-2 /hpf (0-2) 02/27/25 02:15 Urine Bacteria (Auto) None Seen (None Seen) 02/27/25 02:15 Nasal Screen MRSA (PCR) Negative (Negative) 02/26/25 23:11 SARS-CoV-2 (PCR) NEGATIVE (Negative) 02/26/25 21:39 Influenza Type A (PCR) Negative (Neg) 02/26/25 21:39 Influenza Type B (PCR) Negative (Neg) 02/26/25 21:39 RSV (RT-PCR) Negative (Neg) 02/26/25 21:39 Impressions Chest X-Ray 02/26/25 19:54 EXAM: XR chest 1V portable CLINICAL HISTORY: Dyspnea. TECHNIQUE: An X-ray image of the chest is obtained in AP projection. Expiratory film with rotated patient. COMPARISON: Chest x-ray dated 12/06/2024 and 12/01/2023, and 10/02/2022. FINDINGS: Pulmonary Parenchyma: Lungs are clear bilaterally. No evidence of consolidation, collapse, or focal opacities. No pulmonary nodules are identified. Right minimal pleural effusion or pleural thickening. (possible masked left pleural recess with cardiomegaly and centralization of patient) No pneumothorax. Heart and Mediastinum: Heart size increases. No mediastinal widening or masses. No hilar or mediastinal lymphadenopathy. Intact dual-chamber implantable cardioverter defibrillator. Bony Thorax: Bony thorax appears intact without fractures or deformities. Shoulder bony hypertrophy. Soft Tissues: Soft tissues overlying the chest wall are unremarkable. IMPRESSION: Cardioemgaly with new right minimal pleural effusion (possible masked left pleural recess with cardiomegaly and rotated patient ) suggests clinical assessment. (new) Electronically signed by Chan Cervantes 02-26-2025 9:49 PM PG Care Time/CCT Total # of Minutes Spent Total Time Spent with Patient: Total time spent is greater than 50% in coordination of care (as documented) at patient's floor/unit and/or counseling patient: Coding Level of Care Code 99939 INT INP/OBS CARE 3/75MIN Diagnoses Acute exacerbation of CHF (congestive heart failure) I50.9 Atrial fibrillation, unspecified type I48.91 Atrial fibrillation type: unspecified HTN (hypertension) I10 (2) Atrial fibrillation Atrial fibrillation type: unspecified Qualified Code(s): I48.91 - Unspecified atrial fibrillation
[2025-02-27 02:27] LABS: Thyroid Stimulating Hormone 1.222 uIu/ml (0.300-4.500)
[2025-02-27 02:54] LABS: Appearance Urine Clear (Clear); Bilirubin Urine Negative (Negative); Blood Urine Negative (Negative); Color Urine Yellow; Glucose Urine UA Negative (Negative); Ketones Urine Negative (Negative); Leukocyte Esterase Urine 1+ (Negative); Nitrite Urine Negative (Negative); Protein Urine Negative (Negative); Specific Gravity Urine 1.007 (1.000-1.030); Urobilinogen Urine Negative (Negative)
[2025-02-27 02:55] LABS: Bacteria Urine Automated None Seen (None Seen); Cast Urine Automated 0-2 /lpf (0-2); Epithelial Cell Urine Auto 0-2 /hpf (0-2); RBC Urine Automated 0-2 /hpf (0-2); WBC Urine Automated 0-5 /hpf (0-5)
[2025-02-27] MEDS: ACETAMINOPHEN 325 MG TAB PO PRN (05:42)
--- NOTE | 2025-02-27 06:42 | Hospitalist Progress Note ---
Date of Service February 27, 2025 Assessment & Plan (1) Acute exacerbation of CHF (congestive heart failure): (2) Atrial fibrillation: (3) HTN (hypertension): Plan Radha is a 89F w/ PMH of HTN, AFib w/ pacemaker, nephrolithiasis, CKD, Vitamin D deficiency, arthritis, and chronic venous insufficiency who presented 02/26 for evaluation of increasing fatigue, edema, and dyspnea on exertion. Patient hs chronic dual chamber pacer that has been present for 10 years (placed in 2014) for which she is concerned has . CHF Exacerbation - Hemodynamically stable on room air - CXR w/ cardiomegaly and pleural effusion - BNP elevated, PJ on CKD noted - Repeat Echocardiogram ordered, showing EF 55-60% - Started on IV Lasix 40 BID on admission, continue Not on diuretic at baseline No prior CHF exacerbations Potential provocation by recent severe sepsis/deconditioning - Strict monitoring of intake, output, and weight - Cardiology consulted Multaq discontinued Ongoing Metoprolol 25 mg daily Q AM, will hold dose increase until BP stabilized Ongoing diuresis advised, will hold at this time d/t hypotension (1500) Atrial fibrillation Rate controlled, anticoagulated on apixaban Continue Eliquis, and Metoprolol Cardiology consultation, anticipating outpatient pacer exchange Hypertension BP low 02/27 PM Diuresis held Dronedarone discontinued Continue other home medications Deconditioning - Recent prolonged admission and recovery a/w sepsis/shock - S/p rehab at [facility], currently at [facility] w/ HH Nursing - Goal is to return to working at the [employer], she enjoys this PT/OT evaluation, hopefully can continue therapy while inpatient Hoarse Voice - Intermittent hoarseness since extubation after ICU admission in November - Potential for vocal cord injury - Daughter requesting further evaluation pending resolution of acute conditions - Potential to benefit from outpatient Otolaryngology Code: Full Diet: Heart Healthy Dispo: Diuresis, Pacer Interrogation, PT Admission and Anticipated Discharge Date Admission Date: February 26, 2025 Supervising Physician Co-Signing Physician Notes I personally examined the patient and verified all nino points of history and exam, discussed case, and agree with decision making with Dr Fall feeling better. Breathing better. No new complaints. Discussed with patient and then daughter. In revisiting her HPI, she was making very good progresshad gone from the hospital to rehab, from rehab to skilled, from skilled personal- care, and now she was doing everything independent but simply needing the assistive device of the walker, and was even starting to look at living fully independently again potentially. Sometime may be a few days to a week prior to admission she was nauseated for nonspecific reasons, and since then she was eating much more soup than she normally does. Vitals noted, in general she is awake and alert pleasant no distress. HEENT normocephalic atraumatic mucous membranes moist. Breathing unlabored no accessory muscle use good effort. Skin with no rashes pallor or icterus. Neuro without focal deficits. Acute HFpEF/acute diastolic CHFI doubt she will really have chronic CHF, discussed with patient and daughter certainly this could end up being the casebut given that she has not had a prior track record of being a CHF patient, and given the acuity of illness she was just throughI suspect she is probably more prone to diastolic CHF/acute HFpEF right now than she was before or will be after she recovers further. It sounds like the salt load of eating soup several times in the last week was what led to sodium retention. Discussed less than 500 mg at any given meal less than 2000 mg in a dayemphasized with the patient multiple times that most sodium is not in the saltshaker. Continue to diurese. PJ is likely from poor forward flow from CHFanticipate this improving, if it does not work up further. Disporeturn to personal-care once she has improved further. PT/OT eval and treat. Subjective Patient notes this morning that she has felt off since her admission for sepsis, but that she did feel she regained strength with physical therapy/rehab. She has returned to living independently with home health nursing aid at [facility]. She notes that over the last week she has felt more bloated and edematous, then over the last 2 days she developed profound fatigue. She notes that in hindsight she has felt more short of breath with PT over the last few weeks as well. She believes that her pacer is failing her as she was told that when it expires she will feel very fatigued. She notes she was scheduled for a pacer interrogation this week that was rescheduled. She does note mild improvement in her swelling/bloating since admission. She is not experiencing chest pain or dyspnea at rest. She denies fevers, chills, lightheadedness, or dizziness. Patient has noted increased urination since presentation 2/ diuretic. Radha expressed a desire to maintain her mobility as much as possible and asked to ambulate around her room with a walker. Physical Exam Physical Exam: Gen: NAD, alert, interactive, pleasant, no conversational dyspnea HEENT: Supple, no LAD, no thyromegaly Resp:Non-labored, lung sounds diminished at bases bilaterally, otherwise CTAB CV:irregularly irregular, normal S1/S2, no M/R/G Abd: Soft, non-distended, no TTP, normoactive bowels, no masses Extr: 2+ dp bilaterally, 1+ pitting edema, chronic venous stasis dermatitis Skin: No acute rashes lesions or erythema Results & Data Results & Data Vital Signs (Past 12 Hours) Vital Signs Temp Pulse Pulse Resp BP BP Pulse Ox 02/27/25 06:38 36.4 C L 02/27/25 04:30 36.2 C L 02/27/25 03:19 36.2 C L 02/27/25 02:00 34.9 C L 02/27/25 01:54 02/27/25 01:54 34.9 C L 65 22 129/76 93 02/27/25 01:19 80 02/27/25 00:54 80 18 115/85 98 02/26/25 23:39 74 02/26/25 23:00 68 25 H 121/75 98 02/26/25 22:45 62 13 98 02/26/25 22:30 113/78 02/26/25 22:27 68 27 H 97 02/26/25 22:21 62 16 97 02/26/25 22:12 56 L 23 109/78 97 02/26/25 22:06 80 24 97 02/26/25 22:01 109/78 02/26/25 22:01 109/78 02/26/25 21:54 66 20 96 02/26/25 21:24 71 29 H 113/82 97 02/26/25 21:15 59 L 18 97 02/26/25 21:09 66 20 96 02/26/25 20:51 69 24 97 02/26/25 20:45 72 20 97 02/26/25 20:30 109/83 02/26/25 20:30 109/83 02/26/25 20:30 57 L 26 H 97 02/26/25 20:24 59 L 16 96 02/26/25 20:00 147/85 H 02/26/25 20:00 147/85 H 02/26/25 20:00 147/85 H 02/26/25 19:54 57 L 20 98 02/26/25 19:42 80 21 99 02/26/25 19:42 80 02/26/25 19:33 66 14 02/26/25 19:30 129/94 02/26/25 19:12 99 02/26/25 19:12 36.7 C 72 22 129/92 96 02/26/25 19:12 O2 Del Method O2 Flow Rate 02/27/25 06:38 02/27/25 04:30 02/27/25 03:19 02/27/25 02:00 02/27/25 01:54 Room Air 02/27/25 01:54 Room Air 02/27/25 01:19 02/27/25 00:54 Room Air 02/26/25 23:39 02/26/25 23:00 Room Air 02/26/25 22:45 02/26/25 22:30 02/26/25 22:27 02/26/25 22:21 02/26/25 22:12 02/26/25 22:06 02/26/25 22:01 02/26/25 22:01 02/26/25 21:54 02/26/25 21:24 02/26/25 21:15 02/26/25 21:09 02/26/25 20:51 02/26/25 20:45 02/26/25 20:30 02/26/25 20:30 02/26/25 20:30 02/26/25 20:24 02/26/25 20:00 02/26/25 20:00 02/26/25 20:00 02/26/25 19:54 Room Air 02/26/25 19:42 02/26/25 19:42 02/26/25 19:33 02/26/25 19:30 02/26/25 19:12 Room Air 0 02/26/25 19:12 Room Air 02/26/25 19:12 Room Air Resident Activity Tracking Resident Involvement: Resident Care Provided Care Provided: Adult Hospital Medicine (2) Atrial fibrillation Atrial fibrillation type: unspecified Qualified Code(s): I48.91 - Unspecified atrial fibrillation
--- NOTE | 2025-02-27 07:12 | Electrocardiogram Report ---
Test Reason : Blood Pressure : */* mmHG Vent. Rate : 80 BPM Atrial Rate : 80 BPM P-R Int : 228 ms QRS Dur : 166 ms QT Int : 446 ms P-R-T Axes : * -68 88 degrees QTcB Int : 514 ms AV dual-paced rhythm with prolonged AV conduction Abnormal ECG When compared with ECG of 06-Dec-2024 10:46, Vent. rate has increased by 2 bpm Confirmed by Toño Gale ([id number]) on 02/27/2025 7:12:27 AM Referred By: REFERRED SELF Confirmed By: Toño Gale
[2025-02-27 07:44] LABS: Hematocrit (blood only) 28.7 % (37.0-47.0); Hemoglobin 9.5 g/dl (12.0-16.0); Mean Corpuscular Hemoglobin 29.4 pg (25.0-34.0); Mean Corpuscular Hgb Conc 33.1 g/dL (32.0-36.0); Mean Corpuscular Volume 88.9 fL (80.0-100.0); Mean Platelet Volume 11.3 fL (9.4-12.4); Platelet Count 67 K/uL (130-400); RDW Coefficient of Variation 17.2 % (11.5-14.5); RDW Standard Deviation 55.7 fL (36.4-46.3); Red Blood Count 3.23 M/uL (4.20-5.40); White Blood Count 2.95 K/ul (4.8-10.8)
[2025-02-27 08:04] LABS: BUN Creatinine Ratio 25.3 (10-20); Calcium 8.3 mg/dl (8.6-10.3); Creatinine Clr Calc Pharmacy 24.9 ml/min; Potassium 4.1 mmol/L (3.5-5.1)
[2025-02-27] MEDS: FUROSEMIDE 40 MG/4 ML VIAL IV SCH (08:33)
[2025-02-27] MEDS: METOPROLOL SUCC 25MG EXT REL TAB PO SCH (08:33)
[2025-02-27] MEDS: THIAMINE HCL 100 MG TAB PO SCH (08:33)
[2025-02-27] MEDS: DRONEDARONE HCL 400 MG TAB PO SCH (08:33)
[2025-02-27] MEDS: APIXABAN 2.5 MG TAB PO SCH (08:33)
--- NOTE | 2025-02-27 10:18 | Cardiology Consultation ---
Date of Consultation February 27, 2025 Assessment & Plan (1) Acute kidney injury superimposed on chronic kidney disease: (2) Acute exacerbation of CHF (congestive heart failure): (3) Acute dyspnea: (4) PAF (paroxysmal atrial fibrillation): (5) Atrial fibrillation with rapid ventricular response: Plan Acute decompensated diastolic congestive heart failure. Resting echocardiography on February 27, 2025 reveals preserved LV systolic function, EF 55 to 60%. Right ventricle mildly dilated, with normal function. Only mild mitral, tricuspid, and aortic insufficiency observed. Pulmonary artery systolic pressure 42 mmHg (mildly elevated). - Continue IV furosemide of 40 mg twice per day. - Daily metabolic panels Paroxysmal atrial fibrillation with a rapid ventricular response. Likely contributing to the above. Prior use of sotalol resulted in unacceptable QT prolongation. Amiodarone previously discontinued due to hyperthyroidism. Patient failing Multaq; since December 06, 2024 patient has had a 36.4% AT/AF burden. Average ventricular rates elevated when in atrial fibrillation. - Discontinue Multaq. - Increase metoprolol succinate to 50 mg twice a day - Add digoxin if unable to tolerate titration of beta-nicole - Avoid calcium channel blockers. 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 Pacemaker interrogation on February 27, 2025 demonstrates undersensing on the atrial lead. Presenting rhythm is atrial fibrillation with ventricular pacing at 80 bpm. Estimated remaining longevity is 5 months. - No current indication for generator exchange - Future outpatient generator exchange discussed. Hypertension. Controlled. CKD. Outpatient Delivery Merchandiser is Dr. Tucker. Creatinine at baseline. Follow via daily metabolic panels. Supervising Physician Co-Signing Physician Notes Attending attestation: Case reviewed with the advanced practitioner. I have personally performed a history and physical examination on the patient. I have reviewed the advanced practitioner's documentation on the date of service referenced in note, and I agree with, and take responsibility for the plan of care. At time of generator change, future considerations include upgrade to include left bundle lead, plan ahead for potential need of AV shirley ablation if patient reverts to chronic atrial fibrillation. Bobby Kaufman DO History of Present Illness Reason for Consultation: Congestive heart failure Requesting Physician: Dr. Alicia Luu DO Attending Physician: Dr. Anjel R Lynette, DO History of Present Illness Radha Floyd is a very pleasant 89-year-old female who is being seen at the request of Dr. Luu. Reason for consultation is CHF. "I think it is the pacemaker but I am not sure. I have had myself through the ringer." Patient hospitalized at [facility], presenting via EMS due to confusion and weakness on December 06, 2024, admitted with acute hypoxic respiratory failure requiring intubation, secondary to septic shock - Pseudomonas UTI, right ureteral stone with hydronephrosis and pyelonephritis, undergoing right ureteral stent placement and later lithotripsy on 12/13/2024. Patient treated with IV cefepime then oral Cipro. Lisinopril, HCTZ, and reduced dose Eliquis anticoagulation transiently held. Discharged December 16, 2024 to [facility]. Eliquis dosing resumed at [facility]. Midodrine 10 mg 3 times per day prescribed while at [facility], discontinued at [facility]. Ureteral stent removed on 01/04/25. Notes developing bronchitis while at [facility]. Multaq inadvertently held at [facility]. She was treated for yeast UTI with fluconazole at [facility]. After [facility], January 06, 2025, patient was transferred to [facility] and now [facility]. [facility] patient remained off of lisinopril and HCTZ. Over the past 1 to 2 weeks patient has experienced worsening shortness of breath, increased lower extremity peripheral edema, weight gain, orthopnea, PND, decreased energy, and decreased appetite. Chest x-ray on presentation is limited, suggesting small right pleural effusion, cardiomegaly. IV furosemide at 40 mg twice per day prescribed with improvement. Patient denies chest pain. No overt palpitations. No dizziness or syncope. No current fevers or chills. No melena or hematochezia Resting echocardiography on February 27, 2025 reveals preserved LV systolic function, EF 55 to 60%. Right ventricle mildly dilated, with normal function. Only mild mitral, tricuspid, and aortic insufficiency observed. Pulmonary artery systolic pressure 42 mmHg (mildly elevated). Pacemaker interrogation earlier this morning demonstrates undersensing on atrial lead. Presenting rhythm is atrial fibrillation with ventricular pacing at 80 bpm. Estimated remaining longevity is 5 months. Since December 06, 2024 patient has had a 36.4% AT/A-fib burden. Average ventricular rates elevated when in atrial fibrillation Problem List: 1. Paroxysmal atrial fibrillation 2. 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 3. Chart history of chronic ischemic heart disease (denied) 4. Hyperthyroidism and osteoporosis - followed by Endocrinology in [place]. 5. Hypertension 6. Skin cancer followed by Dermatology. 7. 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 Further evaluation encouraged by Dr. Farfan but denied by the patient. 8. Peripheral artery disease and chronic venous insufficiency status post intervention, previously followed by Dr. Garibay, [facility] 9. Chronic lower extremity wounds, followed by the [facility] 10. Iron deficiency anemia 11. Thrombocytopenia 12. Hospitalization in November 2023 with GI bleeding secondary to gastritis, gastric ulcer. Prescribed pantoprazole. Required transfusion of 3 units packed red blood cells, 3 IV iron infusions. Anticoagulation temporarily held. Follow-up EGD on January 28, 2024 revealed normal esophagus, normal stomach, normal examined duodenum. Allergies Allergy/AdvReac Type Severity Reaction Status Date / Time latex Allergy Intermediate Rash Verified 02/26/25 20:50 Penicillins Allergy Intermediate Rash, Verified 02/26/25 20:50 heart palpitations Sulfa (Sulfonamide Allergy Intermediate rash Verified 02/26/25 20:50 Antibiotics) cephalexin AdvReac Intermediate Diarrhea Verified 02/26/25 20:50 Home Medications Medication Instructions Recorded Confirmed Type dronedarone 400 mg tablet (Multaq) 400 mg PO BID 06/19/18 02/26/25 History nitroglycerin 0.4 mg sublingual 0.4 mg sublingual Q5M PRN Chest 06/19/18 02/26/25 History tablet (Nitrostat) Pain Lift Chair #1 ea 09/27/22 12/11/24 Rx apixaban 2.5 mg tablet (Eliquis) 2.5 mg PO BID 06/01/24 02/26/25 History loperamide 2 mg capsule (Imodium 2 mg PO Q4H PRN Diarrhea 02/09/25 02/26/25 History A-D) nebulizers #1 ea 02/18/25 Rx albuterol sulfate 90 mcg/actuation 2 puff inhalation Q6H PRN 02/26/25 02/26/25 History aerosol inhaler (Ventolin HFA) DYSPNEA/WHEEZING benzonatate 100 mg capsule 100 mg PO Q8H PRN Cough 02/26/25 02/26/25 History meloxicam 7.5 mg tablet 7.5 mg PO DAILY 02/26/25 02/26/25 History metoprolol succinate 25 mg 25 mg PO QAM 02/26/25 02/26/25 History tablet,extended release 24 hr thiamine HCl (vitamin B1) 100 mg 100 mg PO DAILY 02/26/25 02/26/25 History tablet (Vitamin B-1) Patient History Medical History History of blood transfusion 11/2023 Osteomyelitis of toe of right foot hx / sx intervention Gastric ulcer reason for upcoming procedure / follow up History of recent hospitalization 11/2023 kyrie garcia - stomach ulcer 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 dressing changes at wound clinic on Tuesdays and home nursing on Fridays History of basal cell carcinoma HTN (hypertension) Pacemaker placed 2006 - shauna -- [employer] -- last check 10/2022 - upcoming 01/16/24 History of myocardial infarction 1990s Slow to wake up after anesthesia denies trouble coming out of /pt reports "just no strong dosages, minimal always works" Osteoarthritis Osteopenia Multinodular goiter denies Hyperthyroidism hx Atrial fibrillation, chronic on warfarin. Follows with René Block PA-C. no hx cardioversion. Chronic venous insufficiency Surgical History History of endoscopy 11/2023 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 H/O excision of mass (01/29/23) Scalp Mass Excision(Right) - Red Farfan MD, FACS Status post ablation of incompetent vein using laser hx 2 ablations History of excision of lesion (01/23/11) Wide excision lesion left lower extremity with full thickness skin graft. Dr. Farfan S/P Mohs surgery for basal cell carcinoma History of tonsillectomy and adenoidectomy History of arthroscopy of knee History of cataract surgery Family History Mother Cardiac disorder Father Hypertension Denies family history of Ovarian cancer Prostate cancer Myocardial infarction Breast cancer Colorectal cancer Social History Smoking Status: Never smoker Second Hand Exposure: No; Hx Alcohol Use: No Hx Substance Use: No Preferred Language: Sammarinese Communication Ability: Effective Visual Impairment: No Limitations Hearing Ability: Normal [place] Required: No Beliefs That Will Affect Care: None marital status: / Current Living Situation: Personal Care Facility Current Living Situation Comment: [facility] current occupational status: employed current occupation: [employer]FF How many Children do You have: 3 Other Information That Helps Us Care for You: No Feels Safe at Home: Yes Safety Concerns: Feels Safe At This Time Childhood Exposure to Second-Hand Smoke: No Diet: regular Diet Comment: regular caffeine: No during the past year weight has: remained stable Dental Care, Regularly: Yes Physical Activity Frequency: Does not Exercise Seatbelt Use: always Sunscreen Use: Yes Assistive Devices: Walker and Wheelchair Review of Systems Review of Systems: Complete Review of Systems is as stated above, negative, or noncontributory Physical Exam Physical Exam: General: Alert. No distress. Comfortable. Cooperative Eyes: PER. Conjunctiva pink, sclera clear. HENT: Normocephalic. Atraumatic. Neck: No carotid bruits. No overt JVD. Heart: Irregularly irregular at 90 bpm. Soft systolic ejection murmur. No diasto lic murmur. Lungs: Diminished however lungs clear to auscultation Abdomen: +BS. Soft. Nontender. No masses. No organomegaly. Extremities: 1+ edema. Marked stasis changes, venous insufficiency, healed ulcerations. Limited neurological examination: No focal deficit Results & Data Vital Signs (Past 12 Hours) Vital Signs Temp Pulse Pulse Resp BP BP Pulse Ox 02/27/25 08:21 02/27/25 07:38 36.7 C 78 18 113/73 95 02/27/25 06:38 36.4 C L 02/27/25 04:30 36.2 C L 02/27/25 03:19 36.2 C L 02/27/25 02:00 34.9 C L 02/27/25 01:54 02/27/25 01:54 34.9 C L 65 22 129/76 93 02/27/25 01:19 80 02/27/25 00:54 80 18 115/85 98 02/26/25 23:39 74 02/26/25 23:00 68 25 H 121/75 98 02/26/25 22:45 62 13 98 02/26/25 22:30 113/78 02/26/25 22:27 68 27 H 97 02/26/25 22:21 62 16 97 O2 Del Method 02/27/25 08:21 Room Air 02/27/25 07:38 Room Air 02/27/25 06:38 02/27/25 04:30 02/27/25 03:19 02/27/25 02:00 02/27/25 01:54 Room Air 02/27/25 01:54 Room Air 02/27/25 01:19 02/27/25 00:54 Room Air 02/26/25 23:39 02/26/25 23:00 Room Air 02/26/25 22:45 02/26/25 22:30 02/26/25 22:27 02/26/25 22:21 Laboratory Results Cardiac Enzymes 02/26/25 Range/Units 19:32 AST 18 (13-39) U/L Troponin I High Sens 11.9 (0-14) pg/ml B-Natriuretic Peptide 657 H (0-100) pg/ml Coagulation 02/26/25 Range/Units 19:32 PT 12.6 H (9.0-12.0) Seconds B-Natriuretic Peptide 657 H (0-100) pg/ml CBC 02/26/25 02/27/25 Range/Units 19:32 07:23 WBC 3.80 L 2.95 L (4.8-10.8) K/ul RBC 3.76 L 3.23 L (4.20-5.40) M/uL Hgb 10.7 L 9.5 L (12.0-16.0) g/dl Hct 33.9 L 28.7 L (37.0-47.0) % Plt Count 90 L 67 L (130-400) K/uL Neut # (Auto) 2.06 (1.40-6.50) K/uL Lymph # (Auto) 0.84 L (1.20-3.40) K/uL [place] # (Auto) 0.74 H (0.11-0.59) K/uL Eos # (Auto) 0.11 (0.00-0.50) K/uL Baso # (Auto) 0.03 (0.00-0.20) K/uL Comprehensive Metabolic Panel 02/26/25 02/27/25 Range/Units 19:32 07:23 Sodium 140 141 (136-145) mmol/L Potassium 4.6 4.1 (3.5-5.1) mmol/L Chloride 109 H 111 H (98-107) mmol/L Carbon Dioxide 23 25 (21-32) mmol/L BUN 45 H 44 H (6-23) mg/dl Creatinine 1.74 H 1.74 H (0.6-1.2) mg/dl Glucose 116 H 79 (70-99(Fasting)) mg/dl Calcium 8.4 L 8.3 L (8.6-10.3) mg/dl AST 18 (13-39) U/L ALT 18 (7-52) U/L Alkaline Phosphatase 106 H (34-104) U/L Total Protein 6.8 (6.0-8.3) gm/dl Albumin 3.6 (3.4-5.0) gm/dl Intake and Output 02/26/25 02/27/25 02/27/25 22:59 06:59 14:59 Intake Total 200 / 200 Output Total 250 / 250 Balance -50 / -50 Intake: Oral 200 / 200 Output: Urine Amount (Catheter) 250 / 250 External 250 / 250 Other: Weight 93.9 kg 91.1 kg Weight Measurement Method Built in [facility] Built in [facility] Diagnostic Findings February 27, 2025 TTE ([facility], Dr. Kaufman): There is mild concentric LVH. Left ventricular systolic function is normal. Left ventricular ejection fraction 55 to 60%. Left ventricular wall motion is normal. The right ventricle is mildly dilated. The right ventricular systolic function is normal. Mild aortic regurgitation. Mild mitral and tricuspid regurgitation. Pulmonary artery systolic pressure 42 mmHg (mildly elevated). Moderate aortic valve sclerosis without significant stenosis. Compared to the images obtained at the time of the previous study from December 09, 2024, the right ventricle is better visualized on the present study. Telemetry: Atrial fibrillation, intermittent pacing
[2025-02-27] MEDS: ONDANSETRON INJ 2 MG/ML 2 ML VIAL IV PRN (13:55)
--- NOTE | 2025-02-27 16:42 | Billing Data ---
Date of Service February 27, 2025 Coding Level of Care Code 54097 SUB INP/OBS CARE MIN
[2025-02-28 06:44] LABS: BUN Creatinine Ratio 24.7 (10-20); Calcium 8.3 mg/dl (8.6-10.3); Creatinine Clr Calc Pharmacy 22.7 ml/min
--- NOTE | 2025-02-28 11:13 | Cardiology Progress Note ---
Date of Service February 28, 2025 Assessment & Plan (1) Acute kidney injury superimposed on chronic kidney disease: (2) Acute exacerbation of CHF (congestive heart failure): (3) Acute dyspnea: (4) PAF (paroxysmal atrial fibrillation): (5) Atrial fibrillation with rapid ventricular response: Plan 02/28/25 Acute decompensated diastolic congestive heart failure. Resting echocardiography on February 27, 2025 reveals preserved LV systolic function, EF 55 to 60%. Right ventricle mildly dilated, with normal function. Only mild mitral, tricuspid, and aortic insufficiency observed. Pulmonary artery systolic pressure 42 mmHg (mildly elevated). - Continue IV furosemide of 40 mg twice per day. - Daily metabolic panels Paroxysmal atrial fibrillation with a rapid ventricular response. Likely contributing to the above. Prior use of sotalol resulted in unacceptable QT prolongation. Amiodarone previously discontinued due to hyperthyroidism. Patient failing Multaq; since December 06, 2024 patient has had a 36.4% AT/AF burden. Average ventricular rates elevated when in atrial fibrillation. - Discontinue Multaq. - Increase metoprolol succinate to 50 mg twice a day - Add digoxin if unable to tolerate titration of beta-nicole - Avoid calcium channel blockers. 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 Pacemaker interrogation on February 27, 2025 demonstrates undersensing on the atrial lead. Presenting rhythm is atrial fibrillation with ventricular pacing at 80 bpm. Estimated remaining longevity is 5 months. - No current indication for generator exchange - Future outpatient generator exchange discussed. Hypertension. Controlled. CKD. Outpatient Training Personnel Supervisor is Dr. Tucker. Creatinine at baseline. Follow via daily metabolic panels. 03/01/25: Acute on chronic HFpEF -echocardiography on February 27, 2025 reveals preserved LV systolic function, EF 55 to 60%. Right ventricle mildly dilated, with normal function. Only mild mitral, tricuspid, and aortic insufficiency observed. Pulmonary artery systolic pressure 42 mmHg (mildly elevated). -patient diuresed since admission -I+O's not measured initially. Output of 1500 ml since yesterday -weight down 3 kg since admission -creatinine increasing to 1.9 this morning -interval improvement in volume status on exam -hold additional diuretics today -monitor renal function/electrolytes -mild hypotension overnight noted as well -patient may need low dose diuretic on discharge. Monior renal function PAF -Afib burden increasing on recent device interrogations -Persistent afib since admission with intermittent pacing -Stop Multaq due to lack of effectiveness -Previously failed sotalol (prolonged QT) and amiodarone (hyperthyroidism) -Increase metoprolol 25 mg BID. it appears patient was to be taking metoprolol 50 mg of metoprolol, but she reports only taking 25. -continue Eliquis 2.5 mg BDI (low dose for age/renal dysfunction) Case discussed with Dr. Keane. I spent a total of 40 minutes on the date of service in preparation, delivery, and documentation of the care provided to this patient, excluding any time spent in the performance of separately billed services. Dinah Baldwin PA-C Department of Cardiology, [facility] This chart was completed in part utilizing Speech Voice Recognition Software. Grammatical errors, random word insertions, pronoun errors, and incomplete sentences are an occasional consequence of this system due to software limitations, ambient noise, and hardware issues. Any formal questions or concerns about the content, text, or information contained within the body of this dictation should be directly addressed to the provider for clarification. Admission and Anticipated Discharge Date Admission Date: February 26, 2025 Supervising Physician Co-Signing Physician Notes I have personally performed a history and physical examination on the patient. I have reviewed the advance practitioner's documentation, and I agree with, and take responsibility for the plan of care. 89-year-old female seen and examined at the bedside. Telemetry reveals rate controlled atrial fibrillation with ventricular pacing. Multaq discontinued in favor of a rate control strategy. Agree with titration of metoprolol to 25 mg twice daily. Continue low-dose Eliquis (adjusted due to renal dysfunction and advanced age). Hold additional diuretic therapy today with elevated creatinine. Repeat basic metabolic panel in AM. Continue to monitor daily weight, GFR, and electrolytes. Deconditioning noted. Patient will require physical therapy evaluation prior to discharge. I spent a total of 35 minutes on the date of service in preparation, delivery, and documentation of the care provided to this patient, excluding any time spent in the performance of separately billed services. Roque Keane DO, FAC Subjective Patient resting in bed. Reports feeling better. SOB improved. Edema improved. HR's controlled. Remains in afib. Metoprolol was held this morning due to mild hypotension, but BP now improved. Creatinine tara slightly to 1.9. No chest p ain. No dizziness. Review of Systems Review of Systems: All systems reviewed & are unremarkable except as noted in HPI & below Physical Exam Physical Exam: General: Alert. No distress. Comfortable. Cooperative Eyes: PER. Conjunctiva pink, sclera clear. HEENT: Normocephalic. Atraumatic. Neck: No carotid bruits. No overt JVD. Heart: Irregularly irregular at 90 bpm. Soft systolic ejection murmur. No diastolic murmur. Lungs: Diminished however lungs clear to auscultation Abdomen: +BS. Soft. Nontender. No masses. No organomegaly. Extremities: Trace edema. Marked stasis changes, venous insufficiency, healed ulcerations. Limited neurological examination: No focal deficit Results & Data Vital Signs (Past 12 Hours) Vital Signs Temp Pulse Pulse Resp BP Pulse Ox O2 Del Method 02/28/25 08:07 36.4 C L 82 18 117/68 94 Room Air 02/28/25 07:14 80 02/28/25 02:41 36.3 C L 76 18 91/61 L 93 Room Air Laboratory Results Comprehensive Metabolic Panel 02/28/25 Range/Units 05:44 Sodium 141 (136-145) mmol/L Potassium 5.0 D (3.5-5.1) mmol/L Chloride 109 H (98-107) mmol/L Carbon Dioxide 28 (21-32) mmol/L BUN 47 H (6-23) mg/dl Creatinine 1.90 H (0.6-1.2) mg/dl Glucose 74 (70-99(Fasting)) mg/dl Calcium 8.3 L (8.6-10.3) mg/dl Intake and Output 02/27/25 02/28/25 02/28/25 22:59 06:59 14:59 Intake Total 240 / 580 100 / 580 Output Total 400 / 1300 200 / 1300 Balance -160 / -720 -100 / -720 Intake: Oral 240 / 580 100 / 580 Output: Urine Amount (Catheter) 400 / 1300 200 / 1300 External 400 / 1300 200 / 1300 Other: Weight 90 kg Weight Measurement Method Built in [facility] Diagnostic Findings Telemetry reviewed: Persistent afib with intermittent ventricular pacing Medications Administered Current Inpatient Medications Acetaminophen (Acetaminophen 325 Mg Tab) 650 mg PO Q4H PRN PRN Reason: Pain or Fever Stop: 03/29/25 01:50 Last Admin: 02/27/25 05:42 Dose: 650 mg Apixaban (Apixaban 2.5 Mg Tab) 2.5 mg PO BID [facility] Stop: 03/29/25 08:59 Last Admin: 02/28/25 08:36 Dose: 2.5 mg Benzonatate (Benzonatate 100 Mg Capsule) 100 mg PO Q8H PRN PRN Reason: Cough Stop: 03/29/25 01:50 Furosemide (Furosemide 40 Mg/4 Ml Vial) 40 mg IV BID17 [facility] Stop: 03/29/25 08:59 Last Admin: 02/27/25 08:33 Dose: 40 mg Metoprolol Succinate (Metoprolol Succ 25mg Ext Rel Tab) 25 mg PO BID [facility] Stop: 03/30/25 11:14 Ondansetron HCl (Ondansetron Inj 2 Mg/Ml 2 Ml Vial) 4 mg IV Q6H PRN PRN Reason: Nausea And Vomiting Stop: 03/29/25 01:50 Last Admin: 02/27/25 13:55 Dose: 4 mg Thiamine HCl (Thiamine Hcl 100 Mg Tab) 100 mg PO DAILY [facility] Stop: 03/29/25 08:59 Last Admin: 02/28/25 08:36 Dose: 100 mg
[2025-02-28] MEDS: METOPROLOL SUCC 25MG EXT REL TAB PO SCH (11:30)
--- NOTE | 2025-02-28 19:31 | Hospitalist Progress Note ---
Date of Service February 28, 2025 Assessment & Plan (1) Acute exacerbation of CHF (congestive heart failure): (2) Atrial fibrillation: (3) HTN (hypertension): (4) Right ureteral calculus: (5) Pancytopenia: (6) Pacemaker: (7) Hyperthyroidism: Miki Garcia is a 89F w/ PMH of HTN, AFib w/ pacemaker, nephrolithiasis, CKD, Vitamin D deficiency, arthritis, and chronic venous insufficiency who presented 02/26 for evaluation of increasing fatigue, edema, and dyspnea on exertion. #acute HFpEF - - Repeat Echocardiogram EF 55-60%, normal RV function, mild valvular disease, mild pulm HTN - Started on IV Lasix 40 BID on admission but creatinine has risen to 1.9 this am thus diuretics placed on hold Not on diuretic at baseline No prior CHF exacerbations Potential provocation by recent severe sepsis/deconditioning, high salt loading with foods (soup, etc) - [facility] Cardiology consult appreciate Multaq discontinued Cardiology increased metoprolol succ to 25mg BID Symptomatically she feels better although still with small amount of NICHOLAS #pacemaker status - - interrogation shows that she is undersensing on the atrial lead - presenting rhythm is atrial fibrillation with ventricular pacing at 80 bpm - estimated remaining longevity is 5 months - will need generator exchange in the next few months #Atrial fibrillation - Rates controlled; rate control strategy being followed rather than rhythm control strategy thus Multaq has been d/c Continue Eliquis 2.5mg BID along with Metoprolol succ; dose increased to BID dosing today [facility] Cardiology consult appreciated; patient will need outpatient pacemaker generator exchange #Hypertension - BPs were low on 02/27 PM thus further diuresis stopped; lasix placed on hold; creatinine has risen overnight c/w intravascular volume depletion BPs fortunately are stable today and thus Cardiology increased meto succ to BID dosing #Deconditioning - - Recent prolonged admission in November 2024 here at [facility] due to septic shock from obstructing kidney stone - S/p rehab at [facility], then was at [facility], then [facility], and then ultimately at [facility] with home PT/OT there PT/OT evaluations appreciated; pt hopes to return to [facility] at discharge #PJ - -baseline Cr is about 1 -Cr today 1.9 -PJ 2nd to diuresis -hold additional IV lasix -BMP am #Hoarse Voice - - Intermittent hoarseness since extubation after ICU admission in November 2024 - Potential for vocal cord injury - Daughter requesting further evaluation pending resolution of acute conditions - Would sent to Otolaryngology post-discharge for laryngoscopy #Pancytopenia - - had mildly low WBCs in November, wbc count improved, now since January has been 4 or less - chronic anemia - low platelets since November 2024 - peripheral smear today with antoine noted - previous SPEP years ago did show an M-spike - B12/folate today wnl; to be complete check copper level - all worrisome for primary bone marrow disease - send SPEP/UPEP; serum immunofixation, light chains, etc. 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 - this is where she hurts the most no N/V no stool since admission just finished working with PT - although not ideal, patient wishes to return to [facility] rather than going to rehab Review of Systems Review of Systems: gen - no fevers or chills cv - no chest pain, no LE edema pulm - no dyspnea GI - no abdominal symptoms Physical Exam Physical Exam: gen - sitting in chair, NAD, pleasant neck - no JVD sitting upright in chair mouth - MMM heart - irregularly irregular, s1 s2, 1/6 BRIAN LLSB lungs - mildly decreased BS bases, otherwise no wheezes or rales abd - soft NT ND BS+ ext - wearing compression stockings on legs, pulses b/l feet 2+ musculo - severe OA changes of knees b/l psych - a/o x 3 Results & Data Results & Data Vital Signs (Past 12 Hours) Vital Signs Temp Pulse Pulse Resp BP Pulse Ox O2 Del Method 02/28/25 15:01 36.3 C L 84 20 113/65 94 Room Air 02/28/25 14:48 78 05/12/25 11:24 36.2 C L 85 18 117/73 96 Room Air 02/28/25 10:05 Room Air 02/28/25 08:07 36.4 C L 82 18 117/68 94 Room Air Laboratory Results Laboratory Results - last 24 hr 02/28/25 05:44 Sodium 141 Potassium 5.0 D Chloride 109 H Carbon Dioxide 28 Anion Gap 4 BUN 47 H Creatinine 1.90 H Est Cr Clr Drug Dosing 22.7 eGFR 24.93 BUN/Creatinine Ratio 24.7 H Glucose 74 Calcium 8.3 L Vitamin B12 675 Folate 13.00 PG Care Time/CCT Total # of Minutes Spent Total Time Spent with Patient: Total time spent is greater than 50% in coordination of care (as documented) at patient's floor/unit and/or counseling patient: Coding Level of Care Code 73373 SUB INP/OBS CARE 3/50MIN Diagnoses Acute exacerbation of CHF (congestive heart failure) I50.9 Atrial fibrillation, unspecified type I48.91 Atrial fibrillation type: unspecified HTN (hypertension) I10 Right ureteral calculus N20.1 Pancytopenia D61.818 Pacemaker Z95.0 Hyperthyroidism E05.90 (2) Atrial fibrillation Atrial fibrillation type: unspecified Qualified Code(s): I48.91 - Unspecified atrial fibrillation
[2025-03-01 06:31] LABS: Basophils # (auto) 0.02 K/uL (0.00-0.20); Basophils % (auto) 0.6 %; Eosinophils # (auto) 0.15 K/uL (0.00-0.50); Eosinophils % (auto) 4.5 %; Hematocrit (blood only) 30.6 % (37.0-47.0); Hemoglobin 9.8 g/dl (12.0-16.0); Immature Granulocytes # (auto) 0.01 K/uL (0.01-0.20); Immature Granulocytes % (auto) 0.3 %; Lymphocytes # (auto) 0.68 K/uL (1.20-3.40); Lymphocytes % (auto) 20.4 %; Mean Corpuscular Hemoglobin 28.8 pg (25.0-34.0); Mean Platelet Volume 10.4 fL (9.4-12.4); Monocytes # (auto) 0.66 K/uL (0.11-0.59); Monocytes % (auto) 19.8 %; Neutrophils # (auto) 1.81 K/uL (1.40-6.50); Neutrophils % (auto) 54.4 %; Platelet Count 76 K/uL (130-400); RDW Coefficient of Variation 17.1 % (11.5-14.5); RDW Standard Deviation 55.6 fL (36.4-46.3); White Blood Count 3.33 K/ul (4.8-10.8)
[2025-03-01 06:48] LABS: BUN Creatinine Ratio 28.7 (10-20); Calcium 8.4 mg/dl (8.6-10.3); Creatinine Clr Calc Pharmacy 25.1 ml/min; Potassium 5.2 mmol/L (3.5-5.1)
--- NOTE | 2025-03-01 08:01 | Hospitalist Progress Note ---
Date of Service March 01, 2025 Assessment & Plan (1) Acute exacerbation of CHF (congestive heart failure): (2) Atrial fibrillation: (3) HTN (hypertension): (4) Right ureteral calculus: (5) Pancytopenia: (6) Pacemaker: (7) Hyperthyroidism: Miki Garcia is a 89F w/ PMH of HTN, AFib w/ pacemaker, nephrolithiasis, CKD, Vitamin D deficiency, arthritis, and chronic venous insufficiency who presented 02/26 for evaluation of increasing fatigue, edema, and dyspnea on exertion. #Acute HFpEF, afib w/ RVR - not on diuretics at baseline, no prior CHF exacerbations. -Potential provocation by recent severe sepsis/deconditioning, high salt loading with foods (soup, etc), ?? 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 New rx at dc Patient reported feeling better with small amt NICHOLAS on 02/28 but increased NICHOLAS today. CXR w/ stable cardiomegaly with mild pulmonary vascular congestion -Lasix 40mg IV x 1 for today (03/01) -Hold further and defer ongoing dosing to cards in f/u exam. ?40mg PO daily vs BID dosing. Note elevated K 5.2 (appears was on rx lisionopril in the past, would defer at this time w/ PJ, also rx meloxicam 7.5mg on 02/19 and should NOT be on NSAIDs w/ her eliquis use). BMP in AM, fecal occult. No upper abd pain on exam Monitor weights, I&Os, labs in AM PT/OT consulted #Atrial fibrillation - attempting rate control rather than rhythm per cards, multaq has now been discontinued and rates stable/improved on increased metoprolol *Note rx meloxicam from Dr Blum, will need follow up discussion as should NOT be on NSAIDs w/ AC use to prevent bleeding - remains on eliquis 2.5mg BID, increased metoprolol 25mg PO BID Appreciate recs from cards and will need f/u for generator exchange as above in next few months #pacemaker status - interrogation shows that she is undersensing on the atrial lead, presenting rhythm afib w/ ventricular pacing at 80bpm, estimated longevity ~5 months. -Metoprolol adj as above. Note <5mo battery life and will need battery exchange in next couple months #PJ - Baseline Cr is about 1 , rise to 1.9 and held lasix and improved to 1.74. Lasix IV x 1, hold further. Avoid lisinopril for now. Renal dose meds/avoid nephrotoxins and monitor BMP in AM #Hypertension - Stable/some lows. Metoprolol increased for rates/rhythm and lasix 40mg IV x 1 for today. Note prior rx lisionpril, will need to discuss and hold off for now to prevent further drop to BP #Pancytopenia - had mildly low WBCs in November, wbc count improved, now since January has been 4 or less with chronic anemia. B12/folate wnl, copper pending Low plts since Nov 2024 and peripheral smear obtained w/ antoine noted, previous SPEP years ago did show an M-spike - all worrisome for primary bone marrow disease - send SPEP/UPEP; serum immunofixation, light chains, etc. --PENDING - once these return, if worrisome for multiple myeloma or similar, will need bone marrow bx then #Hoarse Voice - intermittent hoarseness since extubation after ICU admission in November 2024, ?potential for vocal cord injury. Daughter req further eval pending resolution in acute conditions Tolerating diet without issue at present. --> Rec f/u otolaryngology post-dc for laryngoscopy #Deconditioning - suspected 2nd to recent prolonged admission in November 2024 here at [facility] due to septic shock from obstructing kidney stone S/p rehab at [facility], then was at [facility], then [facility], and then ultimately at [facility] with home PT/OT there PT/OT evaluations appreciated; pt hopes to return to [facility] at discharge Dispo: continued inpatient stay, therapy evals rec retrun [place] [facility] [place] Timing TBD pending response to diuretics/cardiology recs. WILL NEED GENERATOR EXCHANGE IN NEXT FEW MONTHS (make sure cards f/u arranged) Admission and Anticipated Discharge Date Admission Date: February 26, 2025 Supervising Physician Co-Signing Physician Notes The patient was not seen by me. The chart was reviewed. Case discussed with JEROMY Thurston. Agree with assessment and plan Subjective Eval this afternoon, having lunch. Seen by cards. Reported breathing little worse today, did order lasix 40mg IV x 1. Discussed w/ Dr Keane and will avoid further scheduled today and will eval in AM to determine dosing. HR better on increased BB, interestingly patient reports thinking she was on maybe 50mg in the past? Rx 50mg 02/10 from tati villegas but [address] Blum beginning of the month Good appetite, no nausea/vomiting. 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, nad but reports increased NICHOLSA today, on room air HEENT: head atraumatic, normocephalic, mmm, trachea midline Resp: diminished in the bases but no wheezing/rales, on ROOM AIR CV: irregularly irregular, rates 60-80s (paced/afib on telemetry), +systolic murmur, linda hose in place, trace pedal edema, pulses present GI: +BS, soft/NT no meza MSK/Neuro: b/l OA knees but otherwise nonfocal, not confused, answering questions appropriately Psych: AOx3, cooperative with exam Results & Data Results & Data Vital Signs (Past 12 Hours) Vital Signs Temp Pulse Pulse Pulse Resp BP Pulse Ox 03/01/25 07:52 03/01/25 07:43 36.3 C L 90 18 105/69 93 03/01/25 07:18 85 03/01/25 02:36 36.4 C L 82 18 108/67 96 02/28/25 22:28 36.3 C L 82 18 105/60 95 02/28/25 21:36 79 02/28/25 21:15 02/28/25 20:15 36.3 C L 82 18 114/74 95 O2 Del Method 03/01/25 07:52 Room Air 03/01/25 07:43 Room Air 03/01/25 07:18 03/01/25 02:36 Room Air 02/28/25 22:28 Room Air 02/28/25 21:36 02/28/25 21:15 Room Air 02/28/25 20:15 Room Air Laboratory Results 03/01/25 03/01/25 03/01/25 Range/Units Unknown 06:08 06:03 WBC 3.33 L (4.8-10.8) K/ul RBC 3.40 L (4.20-5.40) M/uL Hgb 9.8 L (12.0-16.0) g/dl Hct 30.6 L (37.0-47.0) % MCV 90.0 (80.0-100.0) fL MCH 28.8 (25.0-34.0) pg MCHC 32.0 (32.0-36.0) g/dL RDW Std Deviation 55.6 H (36.4-46.3) fL RDW Coeff of Caterina 17.1 H (11.5-14.5) % Plt Count 76 L (130-400) K/uL MPV 10.4 (9.4-12.4) fL Immature Gran % (Auto) 0.3 % Neut % (Auto) 54.4 % Lymph % (Auto) 20.4 % Will % (Auto) 19.8 % Eos % (Auto) 4.5 % Baso % (Auto) 0.6 % Neut # (Auto) 1.81 (1.40-6.50) K/uL Lymph # (Auto) 0.68 L (1.20-3.40) K/uL Will # (Auto) 0.66 H (0.11-0.59) K/uL Eos # (Auto) 0.15 (0.00-0.50) K/uL Baso # (Auto) 0.02 (0.00-0.20) K/uL Immature Gran # (Auto) 0.01 (0.01-0.20) K/uL Sodium 140 (136-145) mmol/L Potassium 5.2 H (3.5-5.1) mmol/L Chloride 109 H (98-107) mmol/L Carbon Dioxide 29 (21-32) mmol/L Anion Gap 2 L (3-11) BUN 50 H (6-23) mg/dl Creatinine 1.74 H (0.6-1.2) mg/dl Est Cr Clr Drug Dosing 25.1 ml/min eGFR 27.70 BUN/Creatinine Ratio 28.7 H (10-20) Glucose 80 (70-99(Fasting)) mg/dl Calcium 8.4 L (8.6-10.3) mg/dl Total Protein (PEP) Pending Albumin (PEP) Pending [id number] Pending Mrhzh-[id number] Pending Rchc-[id number] Pending Oqul-3-Thzpewtg Pending Gamma Globulins Pending Monoclonal Peak 3 Pending Ser Monoclonl Protein Pending Ser Monoclonal Prot 2 Pending PEP Interpretation Pending Stool Occult Bld Scrn Pending Serum Copper Pending Serum Immunofixation Pending Free Moodys LC, Quant Pending Free Lambda LC, Quant Pending Free Moodys/Lambda Ratio Pending Babesia microti DNA PCR Pending Diagnostic Findings Chest X-Ray 03/01/25 12:27 XR chest 1V portable CLINICAL HISTORY: f/u cxr COMPARISON STUDY: 02/26/2025 FINDINGS: Stable pacemaker. Stable prominent cardiomegaly with mild pulmonary vascular congestion. Stable small bilateral pleural effusions and associated lung base consolidation. No pneumothorax. IMPRESSION: Stable exam. ACT 112: Negative or not required by law. Electronically signed by: Javier Carvajal M.D. 03/01/2025 12:45 PM PG Care Time/CCT Total # of Minutes Spent Total Time Spent with Patient: Total time spent is greater than 50% in coordination of care (as documented) at patient's floor/unit and/or counseling patient: Coding Level of Care Code 65694 SUB INP/OBS CARE 3/50MIN Diagnoses Acute exacerbation of CHF (congestive heart failure) I50.9 Atrial fibrillation, unspecified type I48.91 Atrial fibrillation type: unspecified HTN (hypertension) I10 Right ureteral calculus N20.1 Pancytopenia D61.818 Pacemaker Z95.0 Hyperthyroidism E05.90 (2) Atrial fibrillation Atrial fibrillation type: unspecified Qualified Code(s): I48.91 - Unspecified atrial fibrillation
--- NOTE | 2025-03-01 08:41 | Cardiology Progress Note ---
Date of Service March 01, 2025 Assessment & Plan (1) Acute kidney injury superimposed on chronic kidney disease: (2) Acute exacerbation of CHF (congestive heart failure): (3) Acute dyspnea: (4) PAF (paroxysmal atrial fibrillation): (5) Atrial fibrillation with rapid ventricular response: Plan 02/27/25 per JEROMY Block Acute decompensated diastolic congestive heart failure. Resting echocardiography on February 27, 2025 reveals preserved LV systolic function, EF 55 to 60%. Right ventricle mildly dilated, with normal function. Only mild mitral, tricuspid, and aortic insufficiency observed. Pulmonary artery systolic pressure 42 mmHg (mildly elevated). - Continue IV furosemide of 40 mg twice per day. - Daily metabolic panels Paroxysmal atrial fibrillation with a rapid ventricular response. Likely contributing to the above. Prior use of sotalol resulted in unacceptable QT prolongation. Amiodarone previously discontinued due to hyperthyroidism. Patient failing Multaq; since December 06, 2024 patient has had a 36.4% AT/AF burden. Average ventricular rates elevated when in atrial fibrillation. - Discontinue Multaq. - Increase metoprolol succinate to 50 mg twice a day - Add digoxin if unable to tolerate titration of beta-nicole - Avoid calcium channel blockers. 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 Pacemaker interrogation on February 27, 2025 demonstrates undersensing on the atrial lead. Presenting rhythm is atrial fibrillation with ventricular pacing at 80 bpm. Estimated remaining longevity is 5 months. - No current indication for generator exchange - Future outpatient generator exchange discussed. Hypertension. Controlled. CKD. Outpatient Mining Support Worker is Dr. Tucker. Creatinine at baseline. Follow via daily metabolic panels. 02/28/25: Per JEROMY Baldwin Acute on chronic HFpEF -echocardiography on February 27, 2025 reveals preserved LV systolic function, EF 55 to 60%. Right ventricle mildly dilated, with normal function. Only mild mitral, tricuspid, and aortic insufficiency observed. Pulmonary artery systolic pressure 42 mmHg (mildly elevated). -patient diuresed since admission -I+O's not measured initially. Output of 1500 ml since yesterday -weight down 3 kg since admission -creatinine increasing to 1.9 this morning -interval improvement in volume status on exam -hold additional diuretics today -monitor renal function/electrolytes -mild hypotension overnight noted as well -patient may need low dose diuretic on discharge. Monior renal function PAF -Afib burden increasing on recent device interrogations -Persistent afib since admission with intermittent pacing -Stop Multaq due to lack of effectiveness -Previously failed sotalol (prolonged QT) and amiodarone (hyperthyroidism) -Increase metoprolol 25 mg BID. it appears patient was to be taking metoprolol 50 mg of metoprolol, but she reports only taking 25. -continue Eliquis 2.5 mg BDI (low dose for age/renal dysfunction) 03/01/25 Acute on chronic HFpEF -Echo 02/27/25 reveals EF 55/60%. ventricle mildly dilated. Mild Tricuspid and aortic insufficiency. -Diuresed well with Lasix, yesterdays dose held due to creatinine elevation -Today creatinine improved from 1.90 to 1.74 today -Weight up today to 92.4kg from 90kg 02/28/25 -I/O inaccurate as she is incontinent/immobile and using a purwick device. -Bp stable overnight with this mornings 105/69 -Continue monitoring renal function and electrolytes -Consider low home dose of Lasix daily on D/C PAF -A-fib controlled on monitor at 80 bpm. -Continue Metoprolol 25mg BID -Continue Eliquis 2.5mg BID -Pacemaker shows A-fib burden increasing -A/V ablation being considered -Device estimated at 5 months life. -Aware of replacement in coming months Ambulatory Deconditioning -Patient reports worsening mobility and deconditioning since November admission and subsequent movements from different facilities with lack of PT consistency -Pt currently 1-2 person assist with walker. Patient states she was fully functional with walker before her hospitalization in November. -Physical therapy recommended skilled PT while inpatient then discharged home with Home PT services. -OT following patient and recommends continued OT while admitted and OT at home on D/C. Case discussed with Dr. Keane I spent a total of 60 minutes on the date of service in preparation, delivery, and documentation of the care provided to this patient, excluding any time spent in the performance of separately billed services. Toño ROTHMAN Department of Cardiology, [facility] This chart was completed in part utilizing Speech Voice Recognition Software. Grammatical errors, random word insertions, pronoun errors, and incomplete sentences are an occasional consequence of this system due to software limitations, ambient noise, and hardware issues. Any formal questions or concerns about the content, text, or information contained within the body of this dictation should be directly addressed to the provider for clarification. Admission and Anticipated Discharge Date Admission Date: February 26, 2025 Supervising Physician Co-Signing Physician Notes I have personally performed a history and physical examination on the patient. I have reviewed the advance practitioner's documentation, and I agree with, and take responsibility for the plan of care. 89-year-old female with atrial fibrillation and controlled ventricular response. Volume status improved, however, creatinine trending upward yesterday. improved today. Agree with additional dose of 40 mg IV furosemide today. Likely transition to oral furosemide 20 mg on Friday, Friday, and Friday as outpatient. Repeat basic metabolic panel 1-2 weeks postdischarge. Metoprolol increased from 25mg daily to 25 mg twice daily during hospitalization. Multaq discontinued. Continue rate control strategy and reduced dose Eliquis. NSAIDs should be avoided with use of anticoagulation. I spent a total of 35 minutes on the date of service in preparation, delivery, and documentation of the care provided to this patient, excluding any time spent in the performance of separately billed services. Roque Keane DO, [facility] Subjective Pt resting in bed comfortably. A/Ox4. Pleasant and cooperative. Denies lightheadedness, dizziness or pain. States she is back to baseline other than he r ambulation in which she states has deconditioned since November. States she now requires 1-2 person assist for ambulation with walker and that she is concerned her knee issues will worsen with "laying in bed all day". Denies SOB, OR NICHOLAS at this time on room air. States she is at her baseline respiratory gaviria. Denies any cp, palpitations. Currently stable in A-fib at 80bpm.Bp stable at 105/69. Denies any issues with urinating or her bowel movements. Creatinine at 1.74 this am improved from 1.9 with Lasix held. Trace edema noted in lower extremities BL. Review of Systems Review of Systems: All systems reviewed and are unremarkable except for what is noted in HPI. Physical Exam Physical Exam: General: Alert. No distress. Comfortable. Cooperative Eyes: PER. Conjunctiva pink, sclera clear. HEENT: Normocephalic. Atraumatic. Neck: No carotid bruits. No overt JVD. Heart: Irregularly irregular at 80 bpm. Soft systolic ejection murmur. No diastolic murmur. Lungs: Diminished however lungs clear to auscultation on room air Abdomen: +BS. Soft. Nontender. No masses. No organomegaly. Extremities: Trace edema. Marked stasis changes, venous insufficiency, healed ulcerations. Limited neurological examination: No focal deficit Results & Data Vital Signs (Past 12 Hours) Vital Signs Temp Pulse Pulse Pulse Resp BP Pulse Ox 03/01/25 07:52 03/01/25 07:43 36.3 C L 90 18 105/69 93 03/01/25 07:18 85 03/01/25 02:36 36.4 C L 82 18 108/67 96 02/28/25 22:28 36.3 C L 82 18 105/60 95 02/28/25 21:36 79 02/28/25 21:15 O2 Del Method 03/01/25 07:52 Room Air 03/01/25 07:43 Room Air 03/01/25 07:18 03/01/25 02:36 Room Air 02/28/25 22:28 Room Air 02/28/25 21:36 02/28/25 21:15 Room Air Laboratory Results CBC 03/01/25 Range/Units 06:08 WBC 3.33 L (4.8-10.8) K/ul RBC 3.40 L (4.20-5.40) M/uL Hgb 9.8 L (12.0-16.0) g/dl Hct 30.6 L (37.0-47.0) % Plt Count 76 L (130-400) K/uL Neut # (Auto) 1.81 (1.40-6.50) K/uL Lymph # (Auto) 0.68 L (1.20-3.40) K/uL Churchill # (Auto) 0.66 H (0.11-0.59) K/uL Eos # (Auto) 0.15 (0.00-0.50) K/uL Baso # (Auto) 0.02 (0.00-0.20) K/uL Comprehensive Metabolic Panel 03/01/25 Range/Units 06:08 Sodium 140 (136-145) mmol/L Potassium 5.2 H (3.5-5.1) mmol/L Chloride 109 H (98-107) mmol/L Carbon Dioxide 29 (21-32) mmol/L BUN 50 H (6-23) mg/dl Creatinine 1.74 H (0.6-1.2) mg/dl Glucose 80 (70-99(Fasting)) mg/dl Calcium 8.4 L (8.6-10.3) mg/dl Intake and Output 02/28/25 03/01/25 03/01/25 22:59 06:59 14:59 Intake Total 120 / 470 Output Total 200 / 226 Balance 119 / 244 -200 / 244 Intake: Oral 120 / 470 Output: Urine Amount (Catheter) 200 / 200 External 200 / 200 # Bowel Movements Other: Other Intake Source npo # Unmeasured Voids 1 Weight 92.4 kg Weight Measurement Method Built in [facility] Medications Administered Current Inpatient Medications Acetaminophen (Acetaminophen 325 Mg Tab) 650 mg PO Q4H PRN PRN Reason: Pain or Fever Stop: 03/29/25 01:50 Last Admin: 02/28/25 11:31 Dose: 650 mg Apixaban (Apixaban 2.5 Mg Tab) 2.5 mg PO BID [facility] Stop: 03/29/25 08:59 Last Admin: 03/01/25 08:02 Dose: 2.5 mg Benzonatate (Benzonatate 100 Mg Capsule) 100 mg PO Q8H PRN PRN Reason: Cough Stop: 03/29/25 01:50 Furosemide (Furosemide 40 Mg/4 Ml Vial) 40 mg IV BID17 [facility] Stop: 03/29/25 08:59 Last Admin: 02/27/25 08:33 Dose: 40 mg Metoprolol Succinate (Metoprolol Succ 25mg Ext Rel Tab) 25 mg PO BID [facility] Stop: 03/30/25 11:14 Last Admin: 03/01/25 08:02 Dose: 25 mg Ondansetron HCl (Ondansetron Inj 2 Mg/Ml 2 Ml Vial) 4 mg IV Q6H PRN PRN Reason: Nausea And Vomiting Stop: 03/29/25 01:50 Last Admin: 02/27/25 13:55 Dose: 4 mg Thiamine HCl (Thiamine Hcl 100 Mg Tab) 100 mg PO DAILY [facility] Stop: 03/29/25 08:59 Last Admin: 03/01/25 08:02 Dose: 100 mg
--- NOTE | 2025-03-01 12:46 | XRay Report ---
XR chest 1V portable CLINICAL HISTORY: f/u cxr COMPARISON STUDY: 02/26/2025 FINDINGS: Stable pacemaker. Stable prominent cardiomegaly with mild pulmonary vascular congestion. St able small bilateral pleural effusions and associated lung base consolidation. No pneumothorax. IMPRESSION: Stable exam. ACT 112: Negative or not required by law. Electronically signed by: Javier Carvajal M.D. 03/01/2025 12:45 PM
[2025-03-01] MEDS: FUROSEMIDE 40 MG/4 ML VIAL IV ONE (14:37)
[2025-03-01] MEDS: PANTOprazole 40 MG TAB PO SCH (17:05)
[2025-03-01] MEDS: ACETAMINOPHEN 500 MG TAB PO SCH (20:16)
[2025-03-02 06:39] LABS: Basophils # (auto) 0.02 K/uL (0.00-0.20); Basophils % (auto) 0.6 %; Eosinophils # (auto) 0.12 K/uL (0.00-0.50); Eosinophils % (auto) 3.8 %; Hematocrit (blood only) 26.3 % (37.0-47.0); Hemoglobin 8.5 g/dl (12.0-16.0); Immature Granulocytes # (auto) 0.01 K/uL (0.01-0.20); Immature Granulocytes % (auto) 0.3 %; Lymphocytes # (auto) 0.89 K/uL (1.20-3.40); Lymphocytes % (auto) 27.8 %; Mean Corpuscular Hemoglobin 28.6 pg (25.0-34.0); Mean Corpuscular Hgb Conc 32.3 g/dL (32.0-36.0); Mean Corpuscular Volume 88.6 fL (80.0-100.0); Monocytes # (auto) 0.65 K/uL (0.11-0.59); Monocytes % (auto) 20.3 %; Neutrophils # (auto) 1.51 K/uL (1.40-6.50); Neutrophils % (auto) 47.2 %; Platelet Count 84 K/uL (130-400); RDW Coefficient of Variation 16.8 % (11.5-14.5); RDW Standard Deviation 53.8 fL (36.4-46.3); Red Blood Count 2.97 M/uL (4.20-5.40)
[2025-03-02 06:58] LABS: BUN Creatinine Ratio 39.1 (10-20); Calcium 8.3 mg/dl (8.6-10.3); Creatinine Clr Calc Pharmacy 27.1 ml/min; Potassium 4.9 mmol/L (3.5-5.1)
--- NOTE | 2025-03-02 07:44 | Hospitalist Progress Note ---
Date of Service March 02, 2025 Assessment & Plan (1) Acute exacerbation of CHF (congestive heart failure): (2) Atrial fibrillation: (3) HTN (hypertension): (4) Right ureteral calculus: (5) Pancytopenia: (6) Pacemaker: (7) Hyperthyroidism: (8) Heme positive stool: (9) Hematuria: Plan Radha is a 89F w/ PMH of HTN, AFib w/ pacemaker, nephrolithiasis, CKD, Vitamin D deficiency, arthritis, and chronic venous insufficiency who presented 02/26 for evaluation of increasing fatigue, edema, and dyspnea on exertion. #Acute HFpEF, afib w/ RVR - not on diuretics at baseline and has not had CHF exacerbation in the past. ?2nd to recent severe sepsis/deconditioning/high salt loading foods with soup/?elevated HR w/ her afib ECHO w/ EF 55-60%, normal RV function, mild valvular disease, mild pulm HTN Cards consulted, [place]- appreciate assistance/recs Lasix IV BID ordered but HELD after AM dose 02/27 for Cr 1.9 Metoprolol increased to 25mg BID. Multaq has been discontinued. Tele w/ stable HR control Cr improved to 1.7 on 02/19 and provided 40mg IV x 1 given increased SOB --> Improvement in breathing today and Cr improved to 1.56 and defer ongoing diuretics to cards. Lisinopril (prior rx) not ordered at this time Eliquis placed on HOLD for bleeding as outlined below, remains on telemetry. AVOID NSAIDs (recent rx meloxicam) Monitor weights, volume status #ANEMIA - suspect MULTIFACTORIAL. (reports baseline anemia but also has hx GI bleed in 2023 requiring transfusion (was on coumadin but now on eliquis for her afib, educed dose,) recent admit for sepsis 2nd to urine source w/ hematuria/stone and need for urological intervention for stone. Also notable w/ w/ pancytopenia (see prior notes) concerning for underlying bone marrow process and send out testing pending but may need ref to oncology pending SPEP/EPEP and ALSO recent MELOXICAM 7.5mg daily w/ AC No overt abdominal pain, Cr improved but ?related to underlying slow bleed. Initially unclear GI vs --> mixed urine and stool w/ + fecal occult testing GI consulted-PPI added given drop in hgb but increased to BID - appreciate GI consult/assistance Recent HEMATURIA w/ urology and sepsis - initial UA w/o blood but reported blood/clots in urine and Urology consulted/repeat UA ordered --> f/u UA, consider abx if appears infected given hx. No abdominal pain but can consider CTAP as well ELIQUIS ON HOLD, continue PPI BID, monitor CBC. Will add iron studies for completeness #Atrial fibrillation - attempting rate control rather than rhythm per cards Multaq has now been discontinued and rates stable/improved on increased metoprolol 25mg PO BID and HR controlled/on telemetry. Eliquis now on HOLD, AVOID NSAIDs (recent meloxicam) and monitor blood counts. Remains on tele and keep mag/K replete #pacemaker status - interrogation shows that she is undersensing on the atrial lead, presenting rhythm afib w/ ventricular pacing at 80bpm, estimated longevity ~5 months. Metoprolol as above and WILL NEED BATTERY EXCHANGE #PJ - baseline Cr is about 1 , rise to 1.9 and held lasix and improved to 1.74 however worsened breathing and CXR unchanged and ordered Lasix 40mg IV x 1 on 03/01 Improvement in Cr but holding further. Lisinopril remains on hold (was on in past month). Renal dose meds/avoid toxins and monitor BMP in AM #Hypertension - stable/low at times but tolerating metoprolol as above. No IGOR w/ hyperkalemia day prior and low normal BPs and defer to cards to resume for above but EF was not reduced and now w/ concerns hematuria #Pancytopenia - had mildly low WBCs in November, wbc count improved, now since January has been 4 or less with chronic anemia. B12/folate wnl. Copper pending low plt since Nov w/ peripheral smear noting rouloux noted, previous SPEP years ago did show an M-spike --> all worrisome for primary bone marrow disease SPEP/UPEP; serum immunofixation, light chains, etc. PENDING and as discussed w/ patient and daughter will need f/u once returned if worrisome for MM or similar would need ref oncology and bone marrow bx #Hoarse Voice - intermittent hoarseness since extubation after ICU admission in November 2024, ?potential for vocal cord injury. Daughter req further eval pending resolution in acute conditions. Tolerating diet and rec f/u otolaryngology post-dc for laryngoscopy . PPI for above, does appear improved today? #Deconditioning - suspected 2nd to recent prolonged admission in November 2024 here at [facility] due to septic shock from obstructing kidney stone S/p rehab at [facility], then was at [facility], then [facility], and then ultimately at [facility] with home PT/OT there and ordered PT/OT and plans for return to [facility] at ok Dispo: continued inpatint stay, concerns for bleeding from (but also possible GI w/ recent NSAID use and baseline eliquis) and GI/Urology consulted and monitoring for need for intervention but placed on PPI BID and holding AC. Cardiology assistance appreciated and diuretics per them, deferred for today *WILL NEED GENERATOR EXCHANGE IN NEXT FEW MONTHS (make sure cards f/u arranged) Admission and Anticipated Discharge Date Admission Date: February 26, 2025 Supervising Physician Co-Signing Physician Notes The patient was not seen by me. The chart was reviewed. Case discussed with JEROMY Thurston. Agree with assessment and plan Subjective Eval this morning before lunch, sitting up in chair. Reports improvement in NICHOLAS despite drop in hgb. No abdominal pain. Less diarrhea today. Reports had some clots in her urine after working with therapy, hx hematuria w/ infection earlier this year and repeat UA ordered but clearer in cannister on wall. Also discussed concerns for possible GI source but consult done and reports wanting to monitor. Daughter reports hx GI bleed last Spring and was on coumadin but difficulty w/ INR after transfusions and was switched to eliquis which is currently on HOLD. Also reviewed chronic anemia but also send out tests pending for possible bone marrow issue and consideration for oncology ref in f/u PCP pending results of sent out testing. Continued inpatient stay, monitoring and urology consult discussed w/ patient and daughter. VSS at this time and deferring ongoing diuretics for now. Afib controlled on monitor. Questions/concerns addressed at this time. Physical Exam 2 Physical Exam: General: 89yo female sitting up in recliner chair, NAD, appears improved, reports improvement in NICHOLAS, 96% on RA HEENT: head atraumatic, normocephalic, mmm, trachea midline Resp: diminished in the bases but no wheezing/rales, on ROOM AIR CV: irregularly irregular, rates 60-80s (paced/afib on telemetry), +systolic murmur, linda hose in place, trace pedal edema, pulses present GI: +BS, soft/NT no meza, purewick on wall w/ concentrated yellow urine but no further blood/darkened appearance as was last evening MSK/Neuro: b/l OA knees but otherwise nonfocal, not confused, answering questions appropriately Psych: AOx3, cooperative with exam Results & Data Results & Data Vital Signs (Past 12 Hours) Vital Signs Temp Pulse Pulse Resp BP BP Pulse Ox 03/02/25 02:39 36.3 C L 85 16 99/62 L 95 03/01/25 23:40 81 03/01/25 22:04 36.4 C L 81 18 97/60 L 97 03/01/25 21:09 O2 Del Method 03/02/25 02:39 Room Air 03/01/25 23:40 03/01/25 22:04 Room Air 03/01/25 21:09 Room Air Laboratory Results 03/02/25 05:56 03/02/25 05:56 Mag 2.0 PG Care Time/CCT Total # of Minutes Spent Total Time Spent with Patient: Total time spent is greater than 50% in coordination of care (as documented) at patient's floor/unit and/or counseling patient: Coding Level of Care Code 53106 SUB INP/OBS CARE 3/50MIN Diagnoses Acute exacerbation of CHF (congestive heart failure) I50.9 Atrial fibrillation, unspecified type I48.91 Atrial fibrillation type: unspecified HTN (hypertension) I10 Right ureteral calculus N20.1 Pancytopenia D61.818 Pacemaker Z95.0 Hyperthyroidism E05.90 Heme positive stool R19.5 Hematuria R31.9 (2) Atrial fibrillation Atrial fibrillation type: unspecified Qualified Code(s): I48.91 - Unspecified atrial fibrillation
--- NOTE | 2025-03-02 08:22 | Cardiology Progress Note ---
Date of Service March 02, 2025 Assessment & Plan (1) Acute kidney injury superimposed on chronic kidney disease: (2) Acute exacerbation of CHF (congestive heart failure): (3) Acute dyspnea: (4) PAF (paroxysmal atrial fibrillation): (5) Atrial fibrillation with rapid ventricular response: Plan 02/27/25 per JEROMY Block Acute decompensated diastolic congestive heart failure. Resting echocardiography on February 27, 2025 reveals preserved LV systolic function, EF 55 to 60%. Right ventricle mildly dilated, with normal function. Only mild mitral, tricuspid, and aortic insufficiency observed. Pulmonary artery systolic pressure 42 mmHg (mildly elevated). - Continue IV furosemide of 40 mg twice per day. - Daily metabolic panels Paroxysmal atrial fibrillation with a rapid ventricular response. Likely contributing to the above. Prior use of sotalol resulted in unacceptable QT prolongation. Amiodarone previously discontinued due to hyperthyroidism. Patient failing Multaq; since December 06, 2024 patient has had a 36.4% AT/AF burden. Average ventricular rates elevated when in atrial fibrillation. - Discontinue Multaq. - Increase metoprolol succinate to 50 mg twice a day - Add digoxin if unable to tolerate titration of beta-nicole - Avoid calcium channel blockers. 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 Pacemaker interrogation on February 27, 2025 demonstrates undersensing on the atrial lead. Presenting rhythm is atrial fibrillation with ventricular pacing at 80 bpm. Estimated remaining longevity is 5 months. - No current indication for generator exchange - Future outpatient generator exchange discussed. Hypertension. Controlled. CKD. Outpatient Bakery Technician is Dr. Tucker. Creatinine at baseline. Follow via daily metabolic panels. 02/28/25: Per JEROMY Baldwin Acute on chronic HFpEF -echocardiography on February 27, 2025 reveals preserved LV systolic function, EF 55 to 60%. Right ventricle mildly dilated, with normal function. Only mild mitral, tricuspid, and aortic insufficiency observed. Pulmonary artery systolic pressure 42 mmHg (mildly elevated). -patient diuresed since admission -I+O's not measured initially. Output of 1500 ml since yesterday -weight down 3 kg since admission -creatinine increasing to 1.9 this morning -interval improvement in volume status on exam -hold additional diuretics today -monitor renal function/electrolytes -mild hypotension overnight noted as well -patient may need low dose diuretic on discharge. Monior renal function PAF -Afib burden increasing on recent device interrogations -Persistent afib since admission with intermittent pacing -Stop Multaq due to lack of effectiveness -Previously failed sotalol (prolonged QT) and amiodarone (hyperthyroidism) -Increase metoprolol 25 mg BID. it appears patient was to be taking metoprolo l 50 mg of metoprolol, but she reports only taking 25. -continue Eliquis 2.5 mg BDI (low dose for age/renal dysfunction) 03/01/25 Acute on chronic HFpEF -Echo 02/27/25 reveals EF 55/60%. ventricle mildly dilated. Mild Tricuspid and aortic insufficiency. -Diuresed well with Lasix, yesterdays dose held due to creatinine elevation -Today creatinine improved from 1.90 to 1.74 today -Weight up today to 92.4kg from 90kg 02/28/25 -I/O inaccurate as she is incontinent/immobile and using a purwick device. -Bp stable overnight with this mornings 105/69 -Continue monitoring renal function and electrolytes -Consider low home dose of Lasix daily on D/C PAF -A-fib controlled on monitor at 80 bpm. -Continue Metoprolol 25mg BID -Continue Eliquis 2.5mg BID -Pacemaker shows A-fib burden increasing -A/V ablation being considered -Device estimated at 5 months life. -Aware of replacement in coming months Ambulatory Deconditioning -Patient reports worsening mobility and deconditioning since November admission and subsequent movements from different facilities with lack of PT consistency -Pt currently 1-2 person assist with walker. Patient states she was fully functional with walker before her hospitalization in November. -Physical therapy recommended skilled PT while inpatient then discharged home with Home PT services. -OT following patient and recommends continued OT while admitted and OT at home on D/C. Case discussed with Dr. Keane I spent a total of 60 minutes on the date of service in preparation, delivery, and documentation of the care provided to this patient, excluding any time spent in the performance of separately billed services. Toño ROTHMAN Department of Cardiology, [facility] This chart was completed in part utilizing Speech Voice Recognition Software. Grammatical errors, random word insertions, pronoun errors, and incomplete sentences are an occasional consequence of this system due to software limitations, ambient noise, and hardware issues. Any formal questions or concerns about the content, text, or information contained within the body of this dictation should be directly addressed to the provider for clarification. 03/02/25 Acute on chronic HFpEF -Weight down today at 86.6 -Creatinine improved to 1.56 from 1.74 -Transition to 20mg Lasix M,W,F -bmp repeat 1-2 weeks on D/C PAF -Tolerating Metoprolol well continue 25mg BID -BP 103/69 HR 98 -A-fib rate controlled on TELE -Eliquis on hold as + stool occult result -Hemoglobin 8.5 down from 9.8 on 03/01. Case discussed with Dr. Keane I spent a total of 60 minutes on the date of service in preparation, delivery, and documentation of the care provided to this patient, excluding any time spent in the performance of separately billed services. Toño ROTHMAN Department of Cardiology, [facility] This chart was completed in part utilizing Speech Voice Recognition Software. Grammatical errors, random word insertions, pronoun errors, and incomplete sentences are an occasional consequence of this system due to software limitations, ambient noise, and hardware issues. Any formal questions or concerns about the content, text, or information contained within the body of this dictation should be directly addressed to the provider for clarification. Admission and Anticipated Discharge Date Admission Date: February 26, 2025 Supervising Physician Co-Signing Physician Notes I have personally performed a history and physical examination on the patient. I have reviewed the advance practitioner's documentation, and I agree with, and take responsibility for the plan of care. 89-year-old female seen examined at the bedside. Feeling better today, however, hemoglobin trending downward. Reports hematuria with clots this AM. Heme positive stools noted. Hgb down to 8.5g/dL. Thrombocytopenia and leukopenia unchanged. Eliquis currently on hold. Continue metoprolol 25 mg twice daily. Multaq discontinued in favor of rate control strategy. Transition to oral Lasix on Friday, Friday, and Friday. Urology and gastroenterology consults pending at this time. I spent a total of 25 minutes on the date of service in preparation, delivery, and documentation of the care provided to this patient, excluding any time spent in the performance of separately billed services. Roque Keane DO, [facility] Subjective Pt A/O X4. States she is having multiple loose bm's and some abdominal cramping. Denies lightheadedness, dizziness, or pain. States her breathing is much improved today. Denies sob or branch. Lungs wer diminished to auscultation, but clear on room air. Denied any palpitations, cp. Currently rate at 90 and A-fib on monitor. Bp stable at 103/69. Creatinine 1.56 down from 1.74. Trace LE edema. Is concerned about D/C as she feels she is not ready and weaker today. Review of Systems Review of Systems: All systems reviewed and are unremarkable except for what is noted in HPI. Physical Exam Physical Exam: General: Alert. No distress. Comfortable. Cooperative Eyes: PER. Conjunctiva pink, sclera clear. HEENT: Normocephalic. Atraumatic. Neck: No carotid bruits. No overt JVD. Heart: Irregular at 80 bpm. Soft systolic ejection murmur. No diastolic murmur. Lungs: Diminished however lungs clear to auscultation on room air Abdomen: +BS. Soft. Nontender. No masses. No organomegaly. Extremities: Trace edema. Marked stasis changes, venous insufficiency, healed ulcerations. Limited neurological examination: No focal deficit Results & Data Vital Signs (Past 12 Hours) Vital Signs Temp Pulse Pulse Resp BP BP Pulse Ox 03/02/25 07:57 03/02/25 07:43 36.3 C L 98 H 18 103/69 95 03/02/25 02:39 36.3 C L 85 16 99/62 L 95 03/01/25 23:40 81 03/01/25 22:04 36.4 C L 81 18 97/60 L 97 03/01/25 21:09 O2 Del Method 03/02/25 07:57 Room Air 03/02/25 07:43 Room Air 03/02/25 02:39 Room Air 03/01/25 23:40 03/01/25 22:04 Room Air 03/01/25 21:09 Room Air Laboratory Results Cardiac Enzymes 03/02/25 Range/Units 05:56 B-Natriuretic Peptide 582 H (0-100) pg/ml Coagulation 03/02/25 Range/Units 05:56 B-Natriuretic Peptide 582 H (0-100) pg/ml CBC 03/02/25 Range/Units 05:56 WBC 3.20 L (4.8-10.8) K/ul RBC 2.97 L (4.20-5.40) M/uL Hgb 8.5 L (12.0-16.0) g/dl Hct 26.3 L (37.0-47.0) % Plt Count 84 L (130-400) K/uL Neut # (Auto) 1.51 (1.40-6.50) K/uL Lymph # (Auto) 0.89 L (1.20-3.40) K/uL [place] # (Auto) 0.65 H (0.11-0.59) K/uL Eos # (Auto) 0.12 (0.00-0.50) K/uL Baso # (Auto) 0.02 (0.00-0.20) K/uL Comprehensive Metabolic Panel 03/02/25 Range/Units 05:56 Sodium 141 (136-145) mmol/L Potassium 4.9 (3.5-5.1) mmol/L Chloride 108 H (98-107) mmol/L Carbon Dioxide 30 (21-32) mmol/L BUN 61 H (6-23) mg/dl Creatinine 1.56 H (0.6-1.2) mg/dl Glucose 73 (70-99(Fasting)) mg/dl Calcium 8.3 L (8.6-10.3) mg/dl Intake and Output 03/01/25 03/02/25 03/02/25 22:59 06:59 14:59 Intake Total 380 / 1200 100 / 1200 Output Total 1777 / 2182 402 / 2182 Balance -1397 / -982 -302 / -982 Intake: Oral 380 / 1200 100 / 1200 Output: Urine Amount (Catheter) 1775 / 2175 400 / 2175 External 1775 / 2175 400 / 2175 # Bowel Movements Other: Weight 86.6 kg Medications Administered Current Inpatient Medications Acetaminophen (Acetaminophen 325 Mg Tab) 650 mg PO Q4H PRN PRN Reason: Pain or Fever Stop: 03/29/25 01:50 Last Admin: 03/02/25 08:11 Dose: 650 mg Acetaminophen (Acetaminophen 500 Mg Tab) 1,000 mg PO BID SHAHEEN Stop: 03/31/25 20:59 Last Admin: 03/01/25 20:16 Dose: 1,000 mg Apixaban (Apixaban 2.5 Mg Tab) 2.5 mg PO BID [facility] Stop: 03/29/25 08:59 Last Admin: 03/01/25 20:16 Dose: 2.5 mg Benzonatate (Benzonatate 100 Mg Capsule) 100 mg PO Q8H PRN PRN Reason: Cough Stop: 03/29/25 01:50 Furosemide (Furosemide 40 Mg/4 Ml Vial) 40 mg IV BID17 SHAHEEN Stop: 03/29/25 08:59 Last Admin: 02/27/25 08:33 Dose: 40 mg Pantoprazole Sodium (Protonix) 40 mg in 10 mls @ 5 mls/min IV BID [facility] Stop: 04/01/25 08:59 Metoprolol Succinate (Metoprolol Succ 25mg Ext Rel Tab) 25 mg PO BID [facility] Stop: 03/30/25 11:14 Last Admin: 03/02/25 08:04 Dose: 25 mg Ondansetron HCl (Ondansetron Inj 2 Mg/Ml 2 Ml Vial) 4 mg IV Q6H PRN PRN Reason: Nausea And Vomiting Stop: 03/29/25 01:50 Last Admin: 02/27/25 13:55 Dose: 4 mg Thiamine HCl (Thiamine Hcl 100 Mg Tab) 100 mg PO DAILY [facility] Stop: 03/29/25 08:59 Last Admin: 03/02/25 08:04 Dose: 100 mg
[2025-03-02] MEDS: PANTOprazole 40 MG/10 ML SYR IV SCH (11:21)
--- NOTE | 2025-03-02 11:49 | Gastrointestinal Consultation ---
Date of Consultation March 02, 2025 Assessment & Plan (1) Heme positive stool: Plan 89 year old female currently admitted for CHF exacerbation, with GI consult placed for heme positive stools. Patient has been reporting blood clots in her urine which she tells me was mixed in the stool they heme checked. She had diarrhea yesterday but none since. she prefers to take a more conservative approach given age and comorbidities. - will await stool studies, though diarrhea seems to have resolved. - continue with protonix 40mg bid. - continue to follow hgb/hct. transfuse as needed. - will continue to monitor. Supervising Physician Co-Signing Physician Notes 89-year-old female came in with shortness of breath and congestive heart failure. She was also noted to have some blood in the stool. Heme positive. There was question whether this was urinary in source. Patient also has a history of peptic ulcer disease. She had endoscopy back in November 2023 and had an ulcer in the cardia at that time. She was having black melanotic stools by her report at that time. She states she was not having black stools until yesterday when she Plast a dark stool very similar to the ones that she reported a year ago. I do note a fairly high BUN to creatinine ratio with a BUN of 61 and a creatinine 1.56. Her hemoglobin is also dropped from 10 down to 8.5. This is concerning for potential gastrointestinal bleeding Patient had been taken meloxicam though she states for less than a week. Patient is not on a chronic PPI. I think going forward should be on chronic PPI such as Protonix 40 mg/day indefinitely. In this patient on Eliquis history of peptic ulcer disease with melena and following H&H I think an EGD is warranted. Reviewed with the patient she wishes to proceed stating I want to know what is going on. Potential endoscopic intervention could be undertaken including cauterization and/or clipping. Proceed with EGD tomorrow History of Present Illness Reason for Consultation: Yanet Phelps PAC Requesting Physician: fecal occult positive, hgb lower, history of GIB Attending Physician: Vinay Penny MD History of Present Illness Patient is an 89 year old female with past medical history of HTN, A Fib w/ pacemaker - on eliquis, nephrolithiasis, CKD, Vitamin D deficiency, arthritis, and chronic venous insufficiency who presented 02/26/25 for evaluation of inc reasing fatigue, edema, and dyspnea on exertion. GI consult placed as her stools tested heme positive. Patient denies any black stools or brbpr in the stools that she can tell. Per nursing and patient, no bowel movement today, though yesterday had some diarrhea. stool studies ordered but not collected yet. Patient tells me that she has been seeing blood in her urine and notes that the stool they checked for hemoccults was mixed with urine. she does have a history of ulcers, but last EGD with [facility] 01/28/24 was unremarkable. Last eliquis dose was 03/01 at 9 PM. rest of GI ros are unremarkable per patient. 03/02/25 hgb 8.5, hct 26.3, wbc 3.2, RBC 2.97, MCV 88.6, platelets 84. Allergies Allergy/AdvReac Type Severity Reaction Status Date / Time latex Allergy Intermediate Rash Verified 02/26/25 20:50 Penicillins Allergy Intermediate Rash, Verified 02/26/25 20:50 heart palpitations Sulfa (Sulfonamide Allergy Intermediate rash Verified 02/26/25 20:50 Antibiotics) cephalexin AdvReac Intermediate Diarrhea Verified 02/26/25 20:50 Home Medications Medication Instructions Recorded Confirmed Type dronedarone 400 mg tablet (Multaq) 400 mg PO BID 06/19/18 02/26/25 History nitroglycerin 0.4 mg sublingual 0.4 mg sublingual Q5M PRN Chest 06/19/18 02/26/25 History tablet (Nitrostat) Pain Lift Chair #1 ea 09/27/22 12/11/24 Rx apixaban 2.5 mg tablet (Eliquis) 2.5 mg PO BID 06/01/24 02/26/25 History loperamide 2 mg capsule (Imodium 2 mg PO Q4H PRN Diarrhea 02/09/25 02/26/25 History A-D) nebulizers #1 ea 02/18/25 Rx albuterol sulfate 90 mcg/actuation 2 puff inhalation Q6H PRN 02/26/25 02/26/25 History aerosol inhaler (Ventolin HFA) DYSPNEA/WHEEZING benzonatate 100 mg capsule 100 mg PO Q8H PRN Cough 02/26/25 02/26/25 History meloxicam 7.5 mg tablet 7.5 mg PO DAILY 02/26/25 02/26/25 History metoprolol succinate 25 mg 25 mg PO QAM 02/26/25 02/26/25 History tablet,extended release 24 hr thiamine HCl (vitamin B1) 100 mg 100 mg PO DAILY 02/26/25 02/26/25 History tablet (Vitamin B-1) Patient History Medical History History of blood transfusion 11/2023 Osteomyelitis of toe of right foot hx / sx intervention Gastric ulcer reason for upcoming procedure / follow up History of recent hospitalization 11/2023 kyrie garcia - stomach ulcer 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 dressing changes at wound clinic on Tuesdays and home nursing on Fridays History of basal cell carcinoma HTN (hypertension) Pacemaker placed 2006 - fabi[employer] -- [employer] -- last check 10/2022 - upcoming 01/16/24 History of myocardial infarction 1990s Slow to wake up after anesthesia denies trouble coming out of /pt reports "just no strong dosages, minimal always works" Osteoarthritis Osteopenia Multinodular goiter denies Hyperthyroidism hx Atrial fibrillation, chronic on warfarin. Follows with René Block PA-C. no hx cardioversion. Chronic venous insufficiency Surgical History History of endoscopy 11/2023 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 H/O excision of mass (01/29/23) Scalp Mass Excision(Right) - Red Farfan MD, FACS Status post ablation of incompetent vein using laser hx 2 ablations History of excision of lesion (01/23/11) Wide excision lesion left lower extremity with full thickness skin graft. Dr. 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: No Beliefs That Will Affect Care: None marital status: / Current Living Situation: Personal Care Facility Current Living Situation Comment: [facility] current occupational status: employed current occupation: [employer] How many Children do You have: 3 Other Information That Helps Us Care for You: No Feels Safe at Home: Yes Safety Concerns: Feels Safe At This Time Childhood Exposure to Second-Hand Smoke: No Diet: regular Diet Comment: regular caffeine: No during the past year weight has: remained stable Dental Care, Regularly: Yes Physical Activity Frequency: Does not Exercise Seatbelt Use: always Sunscreen Use: Yes Assistive Devices: Walker and Wheelchair Review of Systems Review of Systems: All systems reviewed & are unremarkable except as noted in HPI & below Physical Exam Constitutional: WD/WN, vitals as above Respiratory: normal respiratory effort, lungs clear to auscultation Cardiovascular: Rate/Rhythm: regular rate and regular rhythm Gastrointestinal (Abdomen): normal bowel sounds, soft, nontender, no hepatosplenomegaly Psychiatric: Orientation: alert and oriented x 3 Affect: euthymic affect Results & Data Vital Signs (Past 12 Hours) Vital Signs Temp Pulse Pulse Resp BP BP Pulse Ox 03/02/25 11:16 97.3 F L 72 18 100/65 96 03/02/25 10:25 85 03/02/25 07:57 03/02/25 07:43 97.3 F L 98 H 18 103/69 95 03/02/25 02:39 97.3 F L 85 16 99/62 L 95 O2 Del Method 03/02/25 11:16 Room Air 03/02/25 10:25 03/02/25 07:57 Room Air 03/02/25 07:43 Room Air 03/02/25 02:39 Room Air Coding Level of Care Code 22143 INT INP/OBS CARE 2/55MIN Diagnoses Heme positive stool R19.5
--- NOTE | 2025-03-02 14:26 | Urology Consultation ---
Date of Consultation March 02, 2025 Assessment & Plan (1) Hematuria: Plan 89yo female admitted with CHF exacerbation - Urology consulted for hematuria Pt reports one episode of hematuria w/clots today She is voiding without issue and has an external cath in place - Urine is clear yellow in canister She did also have blood in her stool and GI was consulted - scheduled for EGD tomorrow UA on admission was negative for blood and signs of infection Denies any pain or discomfort She is afebrile with stable vitals at present Labs show WBCs 3.20, hemoglobin 8.5, creatinine 1.56 Repeat UA ordered, will await results Would recommend checking a urine culture to r/o infection Can consider CTAP pending UA results or with any new pain, fever Anticoagulation on hold per primary Urology will follow History of Present Illness Attending Physician: Vinay Penny MD History of Present Illness 89 year old female with a PMHx of HTN, AFib w/ pacemaker on eliquis, nephrolithiasis, CKD, Vitamin D deficiency, arthritis, and chronic venous insufficiency who presented 02/26/25 for evaluation of increasing fatigue, edema, and dyspnea on exertion and admitted for CHF exacerbation Urology was consulted for hematuria Pt reported hematuria w/clots in her urine after working with therapy today. Urinalysis 02/27/2025 was negative for blood or signs of infection. Repeat UA ordered. No new abdominal imaging for review. Of note, patient was admitted in November 2024 for sepsis and obstructing stone. She underwent stone treatment and stent removal with Dr. Cruz. Patient was seen at bedside today. She is awake and resting in bed on arrival. No acute distress. She reports seeing blood in her urine with some clots earlier today. Has external catheter in place. Urine is clear yellow in canister. She denies abdominal, flank, bladder pain. Denies dysuria. Denies difficulty with urination or feelings of incomplete emptying. Denies fever, ch ills, nausea, vomiting. Allergies Allergy/AdvReac Type Severity Reaction Status Date / Time latex Allergy Intermediate Rash Verified 02/26/25 20:50 Penicillins Allergy Intermediate Rash, Verified 02/26/25 20:50 heart palpitations Sulfa (Sulfonamide Allergy Intermediate rash Verified 02/26/25 20:50 Antibiotics) cephalexin AdvReac Intermediate Diarrhea Verified 02/26/25 20:50 Home Medications Medication Instructions Recorded Confirmed Type dronedarone 400 mg tablet (Multaq) 400 mg PO BID 06/19/18 02/26/25 History nitroglycerin 0.4 mg sublingual 0.4 mg sublingual Q5M PRN Chest 06/19/18 02/26/25 History tablet (Nitrostat) Pain Lift Chair #1 ea 09/27/22 12/11/24 Rx apixaban 2.5 mg tablet (Eliquis) 2.5 mg PO BID 06/01/24 02/26/25 History loperamide 2 mg capsule (Imodium 2 mg PO Q4H PRN Diarrhea 02/09/25 02/26/25 History A-D) nebulizers #1 ea 02/18/25 Rx albuterol sulfate 90 mcg/actuation 2 puff inhalation Q6H PRN 02/26/25 02/26/25 History aerosol inhaler (Ventolin HFA) DYSPNEA/WHEEZING benzonatate 100 mg capsule 100 mg PO Q8H PRN Cough 02/26/25 02/26/25 History meloxicam 7.5 mg tablet 7.5 mg PO DAILY 02/26/25 02/26/25 History metoprolol succinate 25 mg 25 mg PO QAM 02/26/25 02/26/25 History tablet,extended release 24 hr thiamine HCl (vitamin B1) 100 mg 100 mg PO DAILY 02/26/25 02/26/25 History tablet (Vitamin B-1) Patient History Medical History History of blood transfusion 11/2023 Osteomyelitis of toe of right foot hx / sx intervention Gastric ulcer reason for upcoming procedure / follow up History of recent [facility] 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 dressing changes at wound clinich on Tuesdays and home nursing on Fridays History of basal cell carcinoma HTN (hypertension) Pacemaker placed 2006 - .fib -- [employer] -- last check 10/2022 - upcoming 01/16/24 History of myocardial infarction 1990s Slow to wake up after anesthesia denies trouble coming out of /pt reports "just no strong dosages, minimal always works" Osteoarthritis Osteopenia Multinodular goiter denies Hyperthyroidism hx Atrial fibrillation, chronic on warfarin. Follows with René Block PA-C. no hx cardioversion. Chronic venous insufficiency Surgical History History of endoscopy 11/2023 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 H/O excision of mass (01/29/23) Scalp Mass Excision(Right) - Red Farfan MD, FACS Status post ablation of incompetent vein using laser hx 2 ablations History of excision of lesion (01/23/11) Wide excision lesion left lower extremity with full thickness skin graft. Dr. Farfan S/P Mohs surgery for basal cell carcinoma History of tonsillectomy and adenoidectomy History of arthroscopy of knee History of cataract surgery Family History Mother Cardiac disorder Father Hypertension Denies family history of Ovarian cancer Prostate cancer Myocardial infarction Breast cancer Colorectal cancer Social History Smoking Status: Never smoker Second Hand Exposure: No; Hx Alcohol Use: No Hx Substance Use: No Preferred Language: Ukrainian Communication Ability: Effective Visual Impairment: No Limitations Hearing Ability: Normal Rag Boiler Required: No Beliefs That Will Affect Care: None marital status: / Current Living Situation: Personal Care Facility Current Living Situation Comment: [facility] current occupational status: employed current occupation: [employer] How many Children do You have: 3 Other Information That Helps Us Care for You: No Feels Safe at Home: Yes Safety Concerns: Feels Safe At This Time Childhood Exposure to Second-Hand Smoke: No Diet: regular Diet Comment: regular caffeine: No during the past year weight has: remained stable Dental Care, Regularly: Yes Physical Activity Frequency: Does not Exercise Seatbelt Use: always Sunscreen Use: Yes Assistive Devices: Walker and Wheelchair Review of Systems Review of Systems: All systems reviewed & are unremarkable except as noted in HPI & below Physical Exam Constitutional: no acute distress Respiratory: no respiratory distress and no labored breathing Musculoskeletal: Head/Neck/Chest: normocephalic Skin: No visible rashes or lesions to exposed skin areas Neurologic: awake Psychiatric: A+Ox3, euthymic affect Genitourinary: Clear yellow urine in canister Results & Data Vital Signs (Past 12 Hours) Vital Signs Temp Pulse Pulse Resp BP BP Pulse Ox 03/02/25 11:16 36.3 C L 72 18 100/65 96 03/02/25 10:25 85 03/02/25 07:57 03/02/25 07:43 36.3 C L 98 H 18 103/69 95 03/02/25 02:39 36.3 C L 85 16 99/62 L 95 O2 Del Method 03/02/25 11:16 Room Air 03/02/25 10:25 03/02/25 07:57 Room Air 03/02/25 07:43 Room Air 03/02/25 02:39 Room Air PG Care Time/CCT Total # of Minutes Spent Total Time Spent with Patient: Total time spent is greater than 50% in coordination of care (as documented) at patient's floor/unit and/or counseling patient: Coding Level of Care Code 63988 INT INP/OBS CARE 2/55MIN Diagnoses Hematuria R31.9
[2025-03-02 15:47] LABS: Ferritin 84.4 ng/ml (8-388)
[2025-03-02 17:24] LABS: Appearance Urine Cloudy (Clear); Bacteria Urine Automated 1+ (None Seen); Bilirubin Urine Negative (Negative); Blood Urine 3+ (Negative); Cast Urine Automated 0-2 /lpf (0-2); Color Urine Yellow; Epithelial Cell Urine Auto 0-2 /hpf (0-2); Glucose Urine UA Negative (Negative); Hyaline Casts Urine Present /lpf (None Presnt); Ketones Urine Negative (Negative); Leukocyte Esterase Urine 3+ (Negative); Nitrite Urine Negative (Negative); Protein Urine Negative (Negative); Urobilinogen Urine Negative (Negative); WBC Urine Automated >50 /hpf (0-5); pH Urine 5.5 (4.5-7.5)
[2025-03-02] MEDS: IRON SUCROSE 200 MG in SODIUM CHLORIDE 0.9% 100 ML IV ONE (17:55)
[2025-03-02 17:59] LABS: Adenovirus F 40/41 PCR Not Detected (NotDetected); Astrovirus PCR Not Detected (NotDetected); Campylobacter PCR Not Detected (NotDetected); Cryptosporidium PCR Not Detected (NotDetected); Cyclospora cayetanensis PCR Not Detected (NotDetected); Entamoeba histolytica PCR Not Detected (NotDetected); Enteroaggregative E.coli(EAEC) Not Detected (NotDetected); Enteropathogenic E.coli (EPEC) Not Detected (NotDetected); Enterotoxigenic E.coli (ETEC) Not Detected (NotDetected); Giardia lamblia PCR Not Detected (NotDetected); Norovirus GI/GII PCR Not Detected (NotDetected); Plesiomonas shigelloides PCR Not Detected (NotDetected); Rotavirus A PCR Not Detected (NotDetected); Salmonella PCR Not Detected (NotDetected); Sapovirus PCR Not Detected (NotDetected); Shiga-like Toxin E.coli (STEC) Not Detected (NotDetected); Shigella/Enteroinvasive E.coli Not Detected (NotDetected); Vibrio cholerae PCR Not Detected (NotDetected); Vibrio species PCR Not Detected (NotDetected); Yersinia enterocolitica PCR Not Detected (NotDetected)
[2025-03-03 07:19] LABS: Hematocrit (blood only) 24.5 % (37.0-47.0); Hemoglobin 8.1 g/dl (12.0-16.0); Mean Corpuscular Hemoglobin 28.8 pg (25.0-34.0); Mean Corpuscular Hgb Conc 33.1 g/dL (32.0-36.0); Mean Corpuscular Volume 87.2 fL (80.0-100.0); Platelet Count 84 K/uL (130-400); RDW Coefficient of Variation 16.8 % (11.5-14.5); RDW Standard Deviation 53.1 fL (36.4-46.3); Red Blood Count 2.81 M/uL (4.20-5.40); White Blood Count 2.93 K/ul (4.8-10.8)
[2025-03-03 07:39] LABS: Albumin Globulin Ratio 1.1 (0.9-2); Albumin Level 2.9 gm/dl (3.4-5.0); BUN Creatinine Ratio 34.9 (10-20); Bilirubin,Total 0.7 mg/dl (0.2-1.0); Calcium 8.7 mg/dl (8.6-10.3); Creatinine Clr Calc Pharmacy 28.5 ml/min; Globulin 2.7 gm/dl (2.5-4.0); Potassium 5.3 mmol/L (3.5-5.1); Total Protein 5.6 gm/dl (6.0-8.3)
[2025-03-03] MEDS ORDERED: SODIUM CHLORIDE 0.9% 100 ML IV PRN (08:05)
--- NOTE | 2025-03-03 08:06 | Hospitalist Progress Note ---
Date of Service March 03, 2025 Assessment & Plan (1) Acute exacerbation of CHF (congestive heart failure): (2) Atrial fibrillation: (3) HTN (hypertension): (4) Right ureteral calculus: (5) Pancytopenia: (6) Pacemaker: (7) Hyperthyroidism: (8) Heme positive stool: (9) Hematuria: Miki Garcia is a 89F w/ PMH of HTN, AFib w/ pacemaker, nephrolithiasis, CKD, Vitamin D deficiency, arthritis, and chronic venous insufficiency who presented 02/26 for evaluation of increasing fatigue, edema, and dyspnea on exertion. Tx CHF however then developing blood in urine and stool noting recent meloxicam use on Eliquis for afib w/ hx GI bleed 2023 requiring continued inpatient stay/evaluation. #ANEMIA - suspect MULTIFACTORIAL, but do have concerns for possible GI vs bleeding in patient w/ hx GI bleed/ulcer in 2023 on coumadin at that time and presently on eliquis for afib w/ recent MELOXICAM use for joint pain w/ drop in hgb however no abdominal pain. Also does have +UA for hematuria which also appears w/ infection w/ recent infection w/ sepsis 2nd to urinary source. 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 No large clot burden in urine and does appear clearer in cannister and denied cloting today but AC has been on hold and UA does appear possibly infected compared to admission UA --> Ceftriaxone IV started, urine cx pending and will f/u Continue PPI IV BID NPO this morning for EGD with Dr Frost, NS x 500cc ordered while NPO. 99% on RA but does appear w/ pulm congestion however 99% on RA and w/ bleeding concerns have deferred Hgb 8.1 on AM labs, iron studies added and did give Venofer 200mg 03/02 and can repeat but have type/cross 1 unit available if needed and do suspect if having bleeding could have put into afib/RVR which could have caused the CHF below in patient w/o prior hx CHF> Cards on consult and rec 20mg lasix M/W/F and will monitor to provide in AM F/u EGD results, AVOID NSAIDs. Likely ongoing discussion regarding anticoagulation use in 89yo w/ bleeding hx. Plt stable Monitor CBC #Pancytopenia As above, with worsening anemia concerning for acute blood loss anemia from GI vs source. Had mildly low WBCs in November, wbc count improved, now since January has been 4 or less with chronic anemia. B12/folate wnl. Copper pending low plt since Nov w/ peripheral smear noting antoine noted, previous SPEP years ago did show an M-spike --> all worrisome for primary bone marrow disease. SPEP/UPEP; serum immunofixation, light chains, etc --> studies PENDING and will need f/u as discussed w/ daughter/patient --> once returned if worrisome for MM/similar will need oncology/bone marrow bx #Acute HFpEF #Afib w/ RVR - not on diuretics at baseline and has not had CHF exacerbation in the past. ?2nd to recent severe sepsis/deconditioning/high salt loading foods with soup/?elevated HR w/ her afib, ?recent reduction in dosing but ?if related to Afib w/ RVR , bleeding/anemia related ECHO w/ EF 55-60%, normal RV function, mild valvular disease (mild AR, MR, TR), mild pulm HTN Cards consulted, Josseline- appreciate assistance/recs Lasix 40mg IV AM 02/27, Cr bump to 1.9 and held further. Metoprolol increased to 25mg BID, multaq has been discontinued and working on rate rather than rhythm control Lasix 40mg IV x 1 on 03/01 given Cr improved to 1.7 and increased SOB/congestion w/ improvement and Cr improved to 1.56--> 1.49 at present without further and cards rec 20mg lasix M/W/F Gentle IVF x 500cc while npo for EGD above but likely will need additional 40mg PO tomorrow pending EGD results and then can back to 20mg 3x/wk and will need cards f/u Lisinopril remains on HOLD (prior rx, likely will dc) Eliquis on HOLD, HR stable on metoprolol 25mg BID but will monitor for further increase as BP/HR allow following EGD above #PJ - baseline Cr is about 1 , rise to 1.9 and held lasix and improved to 1.74 however worsened breathing and CXR unchanged and ordered Lasix 40mg IV x 1 on 03/01 w/ continue improvement Cr to 1.49 but ?2nd to anemia from acute blood loss in patient w/ chronic anemia from GI vs source vs other. Avoid resumption of lisinopril given elevated K/PJ, likely would avoid [place] Urology consulted, CTAP as above and did obtain UA given hx infection--> appeared + and Ceftriaxone IV started and will monitor urine cx Also note MANISHA --> Iron studies w/ low iron (27), trans % sat 9 and ferritin 84 --> Venofer IV 200mg provided and will monitor for repeat dosing 03/04 vs PRBC pending repeat hgb and EGD results Renal dose meds/avoid toxins #pacemaker status - interrogation shows that she is undersensing on the atrial lead, presenting rhythm afib w/ ventricular pacing at 80bpm, estimated longevity ~5 months. Metoprolol as above and WILL NEED BATTERY EXCHANGE #Hypertension - stable/low at times but tolerating metoprolol as above and elevated today. Prior on lisinopril but avoiding as above Metoprolol increased for HR as above, lasix dosing TBD #Hoarse Voice - intermittent hoarseness since extubation after ICU admission in November 2024, ?potential for vocal cord injury. Daughter req further eval pending resolution in acute conditions. Tolerating diet and rec f/u otolaryngology post-dc for laryngoscopy . PPI for above and appeared improved on repeat. ?if needing continued PPI baseline but would continue w/ concerns above #Deconditioning - suspected 2nd to recent prolonged admission in November 2024 here at [facility] due to septic shock from obstructing kidney stone S/p rehab at [facility], then was at [facility], then [facility], and then ultimately at [facility] with home PT/OT there and ordered PT/OT and plans for return to [facility] at fl Dispo: continued inpatient for eval anemia, EGD w/ GI and abx started for suspected UTI and monitoring cultures. Anticoagulation remains on hold and will need continued discussions, appreicate cards consult/assistance. *Will need generator exchange in next few months Lasix dosing TBD pending course but cards rec 20mg M/W/ Call/voicemail to daughter this morning to discuss plan and updated at bedside 03/01 and by phone w/ patient in room 03/02 and will call in AM/sooner as needed Admission and Anticipated Discharge Date Admission Date: February 26, 2025 Supervising Physician Co-Signing Physician Notes The patient was not seen by me. The chart was reviewed. Case discussed with JEROMY Thurston. Agree with assessment and plan Subjective Eval this morning, sitting up in chair, just got working with therapy. Breathing stable, on room air. Diminished but holding off diuretics as for EGD today given hgb drop. Continues on PPI IV BID, discussed UA positive. Less bleeding but started abx and will monitor. No CP, nausea, abdominal pain or dizziness. Will call daughter w/ update. Questions/concerns addressed at this time. Physical Exam Physical Exam: General: 89yo female sitting up in recliner chair, NAD, reports feeling alright, breathing stable and remains on RA, just got done working with therapy HEENT: head atraumatic, normocephalic, mmm, trachea midline, +JVD Resp: diminished in the bases, no wheezing/rales, on room air CV: irregularly irregular, rates 80-100s, up to 120s at times w/ therapy (paced/afib on monitor), +systolic murmur, no pitting edema, chronic venous stasis changes, calves nontender (b/l OA knees) GI: +BS, slight distension but soft/nontender no meza, purewick in place w/ cannister on wall with YELLOW URINE, no clots/hematuria noted MSK/Neuro: b/l OA knees but otherwise nonfocal, not confused, answering questions appropriately Psych: AOx3, cooperative with exam Results & Data Results & Data Vital Signs (Past 12 Hours) Vital Signs Temp Pulse Pulse Resp BP BP Pulse Ox 03/03/25 02:30 36.5 C 96 H 20 100/58 L 94 03/03/25 00:53 36.4 C L 82 20 99/52 L 93 03/02/25 22:37 87 03/02/25 21:40 03/02/25 20:11 36.3 C L 88 20 112/61 97 O2 Del Method 03/03/25 02:30 Room Air 03/03/25 00:53 Room Air 03/02/25 22:37 03/02/25 21:40 Room Air 03/02/25 20:11 Room Air Laboratory Results 03/03/25 03/03/25 03/02/25 Range/Units 08:13 06:29 Unknown WBC 2.93 L (4.8-10.8) K/ul RBC 2.81 L (4.20-5.40) M/uL Hgb 8.1 L (12.0-16.0) g/dl Hct 24.5 L (37.0-47.0) % MCV 87.2 (80.0-100.0) fL MCH 28.8 (25.0-34.0) pg MCHC 33.1 (32.0-36.0) g/dL RDW Std Deviation 53.1 H (36.4-46.3) fL RDW Coeff of Caterina 16.8 H (11.5-14.5) % Plt Count 84 L (130-400) K/uL MPV 11.0 (9.4-12.4) fL Sodium 141 (136-145) mmol/L Potassium 5.3 H (3.5-5.1) mmol/L Chloride 109 H (98-107) mmol/L Carbon Dioxide 29 (21-32) mmol/L Anion Gap 3 (3-11) BUN 52 H (6-23) mg/dl Creatinine 1.49 H (0.6-1.2) mg/dl Est Cr Clr Drug Dosing 28.5 ml/min eGFR 33.37 BUN/Creatinine Ratio 34.9 H (10-20) Glucose 74 (70-99(Fasting)) mg/dl Calcium 8.7 (8.6-10.3) mg/dl Ionized Calcium 1.23 (1.12-1.32) mmol/L Magnesium 2.0 (1.7-2.4) mg/dl Ferritin (8-388) ng/ml Total Bilirubin 0.7 (0.2-1.0) mg/dl AST 13 (13-39) U/L ALT 11 (7-52) U/L Alkaline Phosphatase 73 (34-104) U/L Total Protein 5.6 L (6.0-8.3) gm/dl Albumin 2.9 L (3.4-5.0) gm/dl Globulin 2.7 (2.5-4.0) gm/dl Albumin/Globulin Ratio 1.1 (0.9-2) Urine Color Yellow Urine Appearance Cloudy A (Clear) Urine pH 5.5 (4.5-7.5) Ur Specific [place] 1.010 (1.000-1.030) Urine Protein Negative (Negative) Urine Glucose (UA) Negative (Negative) Urine Ketones Negative (Negative) Urine Blood 3+ H (Negative) Urine Nitrite Negative (Negative) Urine Bilirubin Negative (Negative) Urine Urobilinogen Negative (Negative) Ur Leukocyte Esterase 3+ H (Negative) Urine WBC (Auto) >50 H (0-5) /hpf Urine RBC (Auto) 11-20 H (0-2) /hpf U Hyaline Cast (Auto) 0-2 (0-2) /lpf U Epithel Cells (Auto) 0-2 (0-2) /hpf Urine Bacteria (Auto) 1+ H (None Seen) Hyaline Casts Present A (None Presnt) /lpf U Random Total Protein Ur Creatinine mg/dL Protein/Creatinin Ratio Urine Albumin (%) U Ctywv-1-Wipccxtx (%) U Svwkz-3-Jazzqgmn (%) U Beta Globulin (%) U Gamma Globulin (%) U Abnormal Prot Band 1 U Abnormal Prot Band 2 U Abnormal Prot Band 3 Urine PEP Interpret Urine Comment Stl C. cayetanensis PCR Not Detected (NotDetected) Stool Rotavirus A PCR Not Detected (NotDetected) Stl Adenov F 40/41 PCR Not Detected (NotDetected) Stool Astrovirus (PCR) Not Detected (NotDetected) Stool Campylobacter PCR Not Detected (NotDetected) Stl C. diff Tox B Gene Negative Cdiff Gene (Neg) Stool Cryptosporidium PCR Not Detected (NotDetected) Stl E.coli Shiga Tox PCR Not Detected (NotDetected) Stl Enterotoxigenic E PCR Not Detected (NotDetected) Stool EPEC (PCR) Not Detected (NotDetected) Stool EAEC (PCR) Not Detected (NotDetected) Stl E. histolytica PCR Not Detected (NotDetected) Stool Giardia Lamblia PCR Not Detected (NotDetected) Stool Salmonella PCR Not Detected (NotDetected) Stool Sapovirus (PCR) Not Detected (NotDetected) Stl P. shigelloides PCR Not Detected (NotDetected) Stl Shigella/EIEC PCR Not Detected (NotDetected) St Y.enterocolitica PCR Not Detected (NotDetected) Stool Vibrio (PCR) Not Detected (NotDetected) Stl Vibrio cholerae PCR Not Detected (NotDetected) Stl Norovirus GI/GII PCR Not Detected (NotDetected) Blood Type O Positive Antibody Screen NEGATIVE Crossmatch See Detail 03/02/25 03/02/25 Range/Units 16:57 05:56 WBC (4.8-10.8) K/ul RBC (4.20-5.40) M/uL Hgb (12.0-16.0) g/dl Hct (37.0-47.0) % MCV (80.0-100.0) fL MCH (25.0-34.0) pg MCHC (32.0-36.0) g/dL RDW Std Deviation (36.4-46.3) fL RDW Coeff of Caterina (11.5-14.5) % Plt Count (130-400) K/uL MPV (9.4-12.4) fL Sodium (136-145) mmol/L Potassium (3.5-5.1) mmol/L Chloride (98-107) mmol/L Carbon Dioxide (21-32) mmol/L Anion Gap (3-11) BUN (6-23) mg/dl Creatinine (0.6-1.2) mg/dl Est Cr Clr Drug Dosing ml/min eGFR BUN/Creatinine Ratio (10-20) Glucose (70-99(Fasting)) mg/dl Calcium (8.6-10.3) mg/dl Ionized Calcium (1.12-1.32) mmol/L Magnesium (1.7-2.4) mg/dl Ferritin 84.4 (8-388) ng/ml Total Bilirubin (0.2-1.0) mg/dl AST (13-39) U/L ALT (7-52) U/L Alkaline Phosphatase (34-104) U/L Total Protein (6.0-8.3) gm/dl Albumin (3.4-5.0) gm/dl Globulin (2.5-4.0) gm/dl Albumin/Globulin Ratio (0.9-2) Urine Color Urine Appearance (Clear) Urine pH (4.5-7.5) Ur Specific [place] (1.000-1.030) Urine Protein (Negative) Urine Glucose (UA) (Negative) Urine Ketones (Negative) Urine Blood (Negative) Urine Nitrite (Negative) Urine Bilirubin (Negative) Urine Urobilinogen (Negative) Ur Leukocyte Esterase (Negative) Urine WBC (Auto) (0-5) /hpf Urine RBC (Auto) (0-2) /hpf U Hyaline Cast (Auto) (0-2) /lpf U Epithel Cells (Auto) (0-2) /hpf Urine Bacteria (Auto) (None Seen) Hyaline Casts (None Presnt) /lpf U Random Total Protein Pending Ur Creatinine mg/dL Pending Protein/Creatinin Ratio Pending Urine Albumin (%) Pending U Tokft-3-Pqpnkpzt (%) Pending U Nwucd-0-Wrpfhzoc (%) Pending U Beta Globulin (%) Pending U Gamma Globulin (%) Pending U Abnormal Prot Band 1 Pending U Abnormal Prot Band 2 Pending U Abnormal Prot Band 3 Pending Urine PEP Interpret Pending Urine Comment Stl C. cayetanensis PCR (NotDetected) Stool Rotavirus A PCR (NotDetected) Stl Adenov F 40/41 PCR (NotDetected) Stool Astrovirus (PCR) (NotDetected) Stool Campylobacter PCR (NotDetected) Stl C. diff Tox B Gene (Neg) Stool Cryptosporidium PCR (NotDetected) Stl E.coli Shiga Tox PCR (NotDetected) Stl Enterotoxigenic E PCR (NotDetected) Stool EPEC (PCR) (NotDetected) Stool EAEC (PCR) (NotDetected) Stl E. histolytica PCR (NotDetected) Stool Giardia Lamblia PCR (NotDetected) Stool Salmonella PCR (NotDetected) Stool Sapovirus (PCR) (NotDetected) Stl P. shigelloides PCR (NotDetected) Stl Shigella/EIEC PCR (NotDetected) St Y.enterocolitica PCR (NotDetected) Stool Vibrio (PCR) (NotDetected) Stl Vibrio cholerae PCR (NotDetected) Stl Norovirus GI/GII PCR (NotDetected) Blood Type Antibody Screen Crossmatch Diagnostic Findings Abdomen/Pelvis CT 03/03/25 06:[address] WITHOUT CONTRAST CT DOSE: 1316.96 mGy.cm HISTORY: Stones, PJ TECHNIQUE: Multiaxial CT images of the abdomen and pelvis were performed without contrast. Sagittal and coronal reconstructions were done. A dose lowering technique was utilized adhering to the principles of ALARA. COMPARISON STUDY: 12/06/2024 FINDINGS: Since the prior study the patient had developed anasarca with maddox bcutaneous edema as well as edema in the mesenteric tissues. There are moderate- sized bilateral pleural effusions with bibasilar compressive atelectasis of the lung bases. The heart is grossly enlarged. There is no pericardial effusion. The right sided hydronephrosis has resolved. As the stones previously located in the proximal right ureter are no longer visualized. Minimal residual distention of the right renal pelvis and calyces is present and because of the tortuosity of the distal right ureter and the presence of vascular calcifications, I cannot exclude a tiny distal right ureteral stone. The remaining solid organs are unremarkable on this noncontrast study. There is no bowel obstruction or free air. There is no ascites. There are a few small dependent stones within the gallbladder. There is no gallbladder wall thickening. There is no aortic aneurysm or periaortic adenopathy. There is no evidence of colitis or diverticulitis. In the pelvis, there is no fluid in the cul-de-sac. The uterus is midline and not enlarged. There are no bladder lesions depicted. There is no significant bladder wall thickening. The appendix is not identified. There is a small fat- containing umbilical hernia. Skeletal structures are once again demonstrated bilateral osteoarthritis of the hips and severe multilevel degenerative change in the scoliotic lumbar spine. IMPRESSION: Minimal residual right pelvocaliectasis but significant improvement since the prior study. The numerous proximal right ureteral stones are no longer visualized. Cannot exclude a tiny distal right ureteral stone. Anasarca has developed with moderate size bilateral pleural effusions with adjacent compressive atelectasis. Cholelithiasis. Please refer to the body the report for additional chronic findings. ACT 112: Negative or not required by law. The above report was generated using voice recognition software. It may contain grammatical, syntax or spelling errors. Electronically signed by: Jana Schumacher M.D. 03/03/2025 9:00 AM PG Care Time/CCT Total # of Minutes Spent Total Time Spent with Patient: Total time spent is greater than 50% in coordination of care (as documented) at patient's floor/unit and/or counseling patient: Coding Level of Care Code 89301 SUB INP/OBS CARE 3/50MIN Diagnoses Acute exacerbation of CHF (congestive heart failure) I50.9 Atrial fibrillation, unspecified type I48.91 Atrial fibrillation type: unspecified HTN (hypertension) I10 Right ureteral calculus N20.1 Pancytopenia D61.818 Pacemaker Z95.0 Hyperthyroidism E05.90 Heme positive stool R19.5 Hematuria R31.9 (2) Atrial fibrillation Atrial fibrillation type: unspecified Qualified Code(s): I48.91 - Unspecified atrial fibrillation
[2025-03-03] MEDS: SODIUM CHLORIDE 0.9% 500 ML IV SCH ×2 (08:39→14:14)
[2025-03-03] MEDS: cefTRIAXone SODIUM 2,000 MG/50 ML BAG IV SCH (08:39)
--- NOTE | 2025-03-03 09:01 | CT Scan Report ---
ABDOMEN AND PELVIS CT WITHOUT CONTRAST CT DOSE: 1316.96 mGy.cm HISTORY: Stones, PJ TECHNIQUE: Multiaxial CT images of the abdomen and pelvis were performed without contrast. Sagittal a nd coronal reconstructions were done. A dose lowering technique was utilized adhering to the principl es of JESSIE. COMPARISON STUDY: 12/06/2024 FINDINGS: Since the prior study the patient had developed anasarca with subcutaneous edema as well as edema in the mesenteric tissues. There are moderate-sized bilateral pleural effusions with bibasilar compressive atelectasis of the lung bases. The heart is grossly enlarged. There is no pericardial ef fusion. The right sided hydronephrosis has resolved. As the stones previously located in the proximal right u reter are no longer visualized. Minimal residual distention of the right renal pelvis and calyces is present and because of the tortuosity of the distal right ureter and the presence of vascular calcifi cations, I cannot exclude a tiny distal right ureteral stone. The remaining solid organs are unremark able on this noncontrast study. There is no bowel obstruction or free air. There is no ascites. There are a few small dependent stones within the gallbladder. There is no gallbladder wall thickening. There is no aortic aneurysm or periaortic adenopathy. There is no evidence of colitis or diverticulitis. In the pelvis, there is no fluid in the cul-de-sac. The uterus is midline and not enlarged. There are no bladder lesions depicted. There is no significant bladder wall thickening. The appendix is not id entified. There is a small fat-containing umbilical hernia. Skeletal structures are once again demonstrated bilateral osteoarthritis of the hips and severe multi level degenerative change in the scoliotic lumbar spine. IMPRESSION: Minimal residual right pelvocaliectasis but significant improvement since the prior study . The numerous proximal right ureteral stones are no longer visualized. Cannot exclude a tiny distal right ureteral stone. Anasarca has developed with moderate size bilateral pleural effusions with adjacent compressive atele ctasis. Cholelithiasis. Please refer to the body the report for additional chronic findings. ACT 112: Negative or not required by law. The above report was generated using voice recognition software. It may contain grammatical, syntax o r spelling errors. Electronically signed by: Jana Schumacher M.D. 03/03/2025 9:00 AM
--- NOTE | 2025-03-03 09:51 | History & Physical Bridge Note ---
Date of Service March 03, 2025 History & Physical Bridge Note I have examined the patient, reviewed the History & Physical and in the interval since the performance of the History & Physical I have noted the following changes of clinical significance: no changes noted. no sob, chest pain, abdominal pain. she has been NPO. she tells me that she did have one dark stool overnight. hgb dropped from 8.5 to 8.1. - proceed with EGD today for further evaluation later today. Supervising Physician Co-Signing Physician Notes Dark stools falling H&H EGD today.
--- NOTE | 2025-03-03 11:33 | Cardiology Progress Note ---
Date of Service March 03, 2025 Assessment & Plan (1) Acute kidney injury superimposed on chronic kidney disease: Plan: Current Inpatient Medications Acetaminophen (Acetaminophen 325 Mg Tab) 650 mg PO Q4H PRN PRN Reason: Pain or Fever Stop: 03/29/25 01:50 Last Admin: 03/02/25 08:11 Dose: 650 mg Acetaminophen (Acetaminophen 500 Mg Tab) 1,000 mg PO BID [facility] Stop: 03/31/25 20:59 Last Admin: 03/03/25 08:49 Dose: 1,000 mg Apixaban (Apixaban 2.5 Mg Tab) 2.5 mg PO BID [facility] Stop: 03/29/25 08:59 Last Admin: 03/01/25 20:16 Dose: 2.5 mg Benzonatate (Benzonatate 100 Mg Capsule) 100 mg PO Q8H PRN PRN Reason: Cough Stop: 03/29/25 01:50 Pantoprazole Sodium (Protonix) 40 mg in 10 mls @ 5 mls/min IV BID [facility] Stop: 04/01/25 08:59 Last Admin: 03/03/25 08:41 Dose: 5 mls/min Ceftriaxone Sodium (Rocephin) 2,000 mg in 50 mls @ 100 mls/hr IV Q24H [facility] Stop: 03/13/25 07:59 Last Infusion: 03/03/25 09:34 Dose: Infused Sodium Chloride (Nss) 100 mls @ 15 mls/hr IV .Q6H40M PRN PRN Reason: For Transfusion Duration Stop: 03/03/25 16:05 Metoprolol Succinate (Metoprolol Succ 25mg Ext Rel Tab) 25 mg PO BID [facility] Stop: 03/30/25 11:14 Last Admin: 03/03/25 08:46 Dose: 25 mg Ondansetron HCl (Ondansetron Inj 2 Mg/Ml 2 Ml Vial) 4 mg IV Q6H PRN PRN Reason: Nausea And Vomiting Stop: 03/29/25 01:50 Last Admin: 02/27/25 13:55 Dose: 4 mg Thiamine HCl (Thiamine Hcl 100 Mg Tab) 100 mg PO DAILY [facility] Stop: 03/29/25 08:59 Last Admin: 03/03/25 08:47 Dose: 100 mg (2) Acute exacerbation of CHF (congestive heart failure): (3) Acute dyspnea: (4) PAF (paroxysmal atrial fibrillation): (5) Atrial fibrillation with rapid ventricular response: Plan 02/27/25 per JEROMY Block Acute decompensated diastolic congestive heart failure. Resting echocardiography on February 27, 2025 reveals preserved LV systolic function, EF 55 to 60%. Right ventricle mildly dilated, with normal function. Only mild mitral, tricuspid, and aortic insufficiency observed. Pulmonary artery systolic pressure 42 mmHg (mildly elevated). - Continue IV furosemide of 40 mg twice per day. - Daily metabolic panels Paroxysmal atrial fibrillation with a rapid ventricular response. Likely contributing to the above. Prior use of sotalol resulted in unacceptable QT prolongation. Amiodarone previously discontinued due to hyperthyroidism. Patient failing Multaq; since December 06, 2024 patient has had a 36.4% AT/AF burden. Average ventricular rates elevated when in atrial fibrillation. - Discontinue Multaq. - Increase metoprolol succinate to 50 mg twice a day - Add digoxin if unable to tolerate titration of beta-nicole - Avoid calcium channel blockers. 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 Pacemaker interrogation on February 27, 2025 demonstrates undersensing on the atrial lead. Presenting rhythm is atrial fibrillation with ventricular pacing at 80 bpm. Estimated remaining longevity is 5 months. - No current indication for generator exchange - Future outpatient generator exchange discussed. Hypertension. Controlled. CKD. Outpatient Gaming Floor Supervisor is Dr. Tucker. Creatinine at baseline. Follow via daily metabolic panels. 02/28/25: Per JEROMY Baldwin Acute on chronic HFpEF -echocardiography on February 27, 2025 reveals preserved LV systolic function, EF 55 to 60%. Right ventricle mildly dilated, with normal function. Only mild mitral, tricuspid, and aortic insufficiency observed. Pulmonary artery systolic pressure 42 mmHg (mildly elevated). -patient diuresed since admission -I+O's not measured initially. Output of 1500 ml since yesterday -weight down 3 kg since admission -creatinine increasing to 1.9 this morning -interval improvement in volume status on exam -hold additional diuretics today -monitor renal function/electrolytes -mild hypotension overnight noted as well -patient may need low dose diuretic on discharge. Monior renal function PAF -Afib burden increasing on recent device interrogations -Persistent afib since admission with intermittent pacing -Stop Multaq due to lack of effectiveness -Previously failed sotalol (prolonged QT) and amiodarone (hyperthyroidism) -Increase metoprolol 25 mg BID. it appears patient was to be taking metoprolol 50 mg of metoprolol, but she reports only taking 25. -continue Eliquis 2.5 mg BDI (low dose for age/renal dysfunction) 03/01/25 Acute on chronic HFpEF -Echo 02/27/25 reveals EF 55/60%. ventricle mildly dilated. Mild Tricuspid and aortic insufficiency. -Diuresed well with Lasix, yesterdays dose held due to creatinine elevation -Today creatinine improved from 1.90 to 1.74 today -Weight up today to 92.4kg from 90kg 02/28/25 -I/O inaccurate as she is incontinent/immobile and using a purwick device. -Bp stable overnight with this mornings 105/69 -Continue monitoring renal function and electrolytes -Consider low home dose of Lasix daily on D/C PAF -A-fib controlled on monitor at 80 bpm. -Continue Metoprolol 25mg BID -Continue Eliquis 2.5mg BID -Pacemaker shows A-fib burden increasing -A/V ablation being considered -Device estimated at 5 months life. -Aware of replacement in coming months Ambulatory Deconditioning -Patient reports worsening mobility and deconditioning since November admission and subsequent movements from different facilities with lack of PT consistency -Pt currently 1-2 person assist with walker. Patient states she was fully functional with walker before her hospitalization in November. -Physical therapy recommended skilled PT while inpatient then discharged home with Home PT services. -OT following patient and recommends continued OT while admitted and OT at home on D/C. Case discussed with Dr. Keane I spent a total of 60 minutes on the date of service in preparation, delivery, and documentation of the care provided to this patient, excluding any time spent in the performance of separately billed services. Toño ROTHMAN Department of Cardiology, [facility] This chart was completed in part utilizing Speech Voice Recognition Software. Grammatical errors, random word insertions, pronoun errors, and incomplete sentences are an occasional consequence of this system due to software limitations, ambient noise, and hardware issues. Any formal questions or concerns about the content, text, or information contained within the body of this dictation should be directly addressed to the provider for clarification. 03/02/25 Acute on chronic HFpEF -Weight down today at 86.6 -Creatinine improved to 1.56 from 1.74 -Transition to 20mg Lasix M,W,F -bmp repeat 1-2 weeks on D/C PAF -Tolerating Metoprolol well continue 25mg BID -BP 103/69 HR 98 -A-fib rate controlled on TELE -Eliquis on hold as + stool occult result -Hemoglobin 8.5 down from 9.8 on 03/01. Case discussed with Dr. Lakhwinder Kirby spent a total of 60 minutes on the date of service in preparation, delivery, and documentation of the care provided to this patient, excluding any time spent in the performance of separately billed services. Toño ROTHMAN Department of Cardiology, [facility] This chart was completed in part utilizing Speech Voice Recognition Software. Grammatical errors, random word insertions, pronoun errors, and incomplete sentences are an occasional consequence of this system due to software limitations, ambient noise, and hardware issues. Any formal questions or concerns about the content, text, or information contained within the body of this dictation should be directly addressed to the provider for clarification. 03/03/25 Acute on chronic HFpEF -Weight 87.1 today -Creatinine improved to 1.49 -Transition to 20mg Lasix M,W,F -bmp repeat 1-2 weeks on D/C PAF -Tolerating Metoprolol well continue 25mg BID -BP 121/77 HR 98 -A-fib rate controlled on TELE -Eliquis on hold as + stool occult result -Hemoglobin 8.1 EGD today Case discussed with Dr. Lakhwinder Kirby spent a total of 60 minutes on the date of service in preparation, delivery, and documentation of the care provided to this patient, excluding any time spent in the performance of separately billed services. Toño ROTHMAN Department of Cardiology, [facility] This chart was completed in part utilizing Speech Voice Recognition Software. Grammatical errors, random word insertions, pronoun errors, and incomplete sentences are an occasional consequence of this system due to software limitations, ambient noise, and hardware issues. Any formal questions or concerns about the content, text, or information contained within the body of this dictation should be directly addressed to the provider for clarification. Admission and Anticipated Discharge Date Admission Date: February 26, 2025 Supervising Physician Co-Signing Physician Notes I have personally performed a history and physical examination on the patient. I have reviewed the advance practitioner's documentation, and I agree with, and take responsibility for the plan of care. 89-year-old female seen examined at the bedside. Feeling better today, however, hemoglobin trending downward to 8.1 today. Denies recurrent hematuria. Heme positive stools noted. Thrombocytopenia and leukopenia unchanged. Eliquis currently on hold. Continue metoprolol 25 mg twice daily. Multaq discontinued in favor of rate control strategy. Oral Lasix on Friday, Friday, and Friday. Patient may proceed with endoscopic procedure. I spent a total of 25 minutes on the date of service in preparation, delivery, and documentation of the care provided to this patient, excluding any time spent in the performance of separately billed services. Roque Keane DO, [facility] Subjective Patient alert and oriented sitting in chair comfortably with daughter at bedside. Denies any cp palpitations chest pain shortness of breath lightheadedness dizziness. Atrial fibrillation on monitor controlled in the 80s to 100 blood pressure 121/77 at this time and have been within normal limits. Awaiting EGD today. Review of Systems Review of Systems: All systems reviewed and are unremarkable except for what is noted in HPI. Physical Exam Physical Exam: General: Alert. No distress. Comfortable. Cooperative Eyes: PER. Conjunctiva pink, sclera clear. HEENT: Normocephalic. Atraumatic. Neck: No carotid bruits. No overt JVD. Heart: Irregular at 80 bpm. Soft systolic ejection murmur. No diastolic murmur. Lungs: Diminished however lungs clear to auscultation on room air Abdomen: +BS. Soft. Nontender. No masses. No organomegaly. Extremities: No edema. Marked stasis changes, venous insufficiency, healed ulcerations. Limited neurological examination: No focal deficit Musculoskeletal: Left arm appears to have IV infiltration present. Warm compress applied. RN to remove IV. Results & Data Vital Signs (Past 12 Hours) Vital Signs Temp Pulse Resp BP BP Pulse Ox O2 Del Method 03/03/25 08:31 36.2 C L 94 H 20 117/67 91 Room Air 03/03/25 02:30 36.5 C 96 H 20 100/58 L 94 Room Air 03/03/25 00:53 36.4 C L 82 20 99/52 L 93 Room Air Laboratory Results Cardiac Enzymes 03/03/25 Range/Units 06:29 AST 13 (13-39) U/L CBC 03/03/25 Range/Units 06:29 WBC 2.93 L (4.8-10.8) K/ul RBC 2.81 L (4.20-5.40) M/uL Hgb 8.1 L (12.0-16.0) g/dl Hct 24.5 L (37.0-47.0) % Plt Count 84 L (130-400) K/uL Comprehensive Metabolic Panel 03/03/25 Range/Units 06:29 Sodium 141 (136-145) mmol/L Potassium 5.3 H (3.5-5.1) mmol/L Chloride 109 H (98-107) mmol/L Carbon Dioxide 29 (21-32) mmol/L BUN 52 H (6-23) mg/dl Creatinine 1.49 H (0.6-1.2) mg/dl Glucose 74 (70-99(Fasting)) mg/dl Calcium 8.7 (8.6-10.3) mg/dl AST 13 (13-39) U/L ALT 11 (7-52) U/L Alkaline Phosphatase 73 (34-104) U/L Total Protein 5.6 L (6.0-8.3) gm/dl Albumin 2.9 L (3.4-5.0) gm/dl Intake and Output 03/02/25 03/03/25 03/03/25 22:59 06:59 14:59 Intake Total 310 / 310 550 / 550 Output Total 200 / 401 201 / 401 Balance 110 / -91 -201 / -91 550 / 550 Intake: IV 110 / 110 550 / 550 Iron Sucrose 200 mg In Sodium 110 / 110 Chloride 0.9% 100 ml @ 220 mls/ hr IV TODAY ONE Rx#:[id number] Sodium Chloride 0.9% 500 ml @ 500 / 500 70 mls/hr IV .Q7H9M [facility] Rx#: [id number] cefTRIAXone SODIUM 2,000 mg In 50 / 50 50 ml @ 100 mls/hr IV Q24H [facility] Rx#:[id number] Oral 200 / 200 Output: Urine Amount (Catheter) 200 / 400 200 / 400 External 200 / 400 200 / 400 # Bowel Movements Other: # Unmeasured Voids 1 Weight 87.1 kg Weight Measurement Method Built in [facility]
--- NOTE | 2025-03-03 13:25 | Anesthesiology Consultation ---
Date of Service March 03, 2025 Assessment & Plan (1) Encounter for pre-operative examination: Chart Review Chart Review: Acceptable Risk for Surgery and Patient NOT seen in Pre Admission Testing Consults Requested none History Surgery Operation Date: 03/03/25 16:30 Proposed Procedures p Esophagogastroduodenoscopy Dr. Santosh Frost MD Height/Weight Height: 5 ft 6 in Weight: 87.1 kg Allergies Allergy/AdvReac Type Severity Reaction Status Date / Time latex Allergy Intermediate Rash Verified 02/26/25 20:50 Penicillins Allergy Intermediate Rash, Verified 02/26/25 20:50 heart palpitations Sulfa (Sulfonamide Allergy Intermediate rash Verified 02/26/25 20:50 Antibiotics) cephalexin AdvReac Intermediate Diarrhea Verified 02/26/25 20:50 Medications Home Medications Medication Instructions Recorded Confirmed Last Taken dronedarone 400 mg tablet (Multaq) 400 mg PO BID 06/19/18 02/26/25 02/26/25 08:00 nitroglycerin 0.4 mg sublingual 0.4 mg sublingual Q5M PRN Chest 06/19/18 02/26/25 06/23/20 tablet (Nitrostat) Pain Lift Chair #1 ea 09/27/22 12/11/24 Unknown apixaban 2.5 mg tablet (Eliquis) 2.5 mg PO BID 06/01/24 02/26/25 02/26/25 08:00 loperamide 2 mg capsule (Imodium 2 mg PO Q4H PRN Diarrhea 02/09/25 02/26/25 Unknown A-D) nebulizers #1 ea 02/18/25 Unknown albuterol sulfate 90 mcg/actuation 2 puff inhalation Q6H PRN 02/26/25 02/26/25 Unknown aerosol inhaler (Ventolin HFA) DYSPNEA/WHEEZING benzonatate 100 mg capsule 100 mg PO Q8H PRN Cough 02/26/25 02/26/25 Unknown meloxicam 7.5 mg tablet 7.5 mg PO DAILY 02/26/25 02/26/25 02/26/25 metoprolol succinate 25 mg 25 mg PO QAM 02/26/25 02/26/25 02/26/25 tablet,extended release 24 hr thiamine HCl (vitamin B1) 100 mg 100 mg PO DAILY 02/26/25 02/26/25 02/26/25 tablet (Vitamin B-1) Active Medications Generic Name Dose Route Start Last Admin Trade Name Freq PRN Reason Stop Dose Admin Acetaminophen 650 mg 02/27/25 01:51 03/02/25 08:11 Acetaminophen 325 Mg Tab PO 03/29/25 01:50 650 mg Q4H PRN Administration Pain or Fever Acetaminophen 1,000 mg 03/01/25 21:00 03/03/25 08:49 Acetaminophen 500 Mg Tab PO 03/31/25 20:59 1,000 mg BID SHAHEEN Administration Apixaban 2.5 mg 02/27/25 09:00 03/01/25 20:16 Apixaban 2.5 Mg Tab PO 03/29/25 08:59 2.5 mg BID SHAHEEN Administration Pantoprazole Sodium 40 mg in 10 mls @ 5 mls/min 03/02/25 09:00 03/03/25 08:41 Protonix IV 04/01/25 08:59 5 mls/min BID SHAHEEN Administration Ceftriaxone Sodium 2,000 mg in 50 mls @ 100 mls/hr 03/03/25 08:00 03/03/25 09:34 Rocephin IV 03/13/25 07:59 Infused Q24H SHAHEEN Infusion Metoprolol Succinate 25 mg 02/28/25 11:15 03/03/25 08:46 Metoprolol Succ 25mg Ext Rel Tab PO 03/30/25 11:14 25 mg BID SHAHEEN Administration Ondansetron HCl 4 mg 02/27/25 01:51 02/27/25 13:55 Ondansetron Inj 2 Mg/Ml 2 Ml Vial IV 03/29/25 01:50 4 mg Q6H PRN Administration Nausea And Vomiting Thiamine HCl 100 mg 02/27/25 09:00 03/03/25 08:47 Thiamine Hcl 100 Mg Tab PO 03/29/25 08:59 100 mg DAILY SHAHEEN Administration Past Medical History Medical History History of blood transfusion 11/2023 Osteomyelitis of toe of right foot hx / sx intervention Gastric ulcer reason for upcoming procedure / follow up History of recent hospitalization 11/[facility] - stomach ulcer 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 dressing changes at wound clinich on Tuesdays and home nursing on Fridays History of basal cell carcinoma HTN (hypertension) Pacemaker placed 2006 - .fib -- [employer] -- last check 10/2022 - upcoming 01/16/24 History of myocardial infarction 1990s Slow to wake up after anesthesia denies trouble coming out of /pt reports "just no strong dosages, minimal always works" Osteoarthritis Osteopenia Multinodular goiter denies Hyperthyroidism hx Atrial fibrillation, chronic on warfarin. Follows with René Block PA-C. no hx cardioversion. Chronic venous insufficiency Cardiology note 03/03/25: 03/02/25 Acute on chronic HFpEF -Weight down today at 86.6 -Creatinine improved to 1.56 from 1.74 -Transition to 20mg Lasix M,W,F -bmp repeat 1-2 weeks on D/C PAF -Tolerating Metoprolol well continue 25mg BID -BP 103/69 HR 98 -A-fib rate controlled on TELE -Eliquis on hold as + stool occult result -Hemoglobin 8.5 down from 9.8 on 03/01 Past Family History Family History Mother Cardiac disorder Father Hypertension Denies family history of Ovarian cancer Prostate cancer Myocardial infarction Breast cancer Colorectal cancer Past Surgical History Surgical History History of endoscopy 11/2023 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 H/O excision of mass (01/29/23) Scalp Mass Excision(Right) - Red Farfan MD, FACS Status post ablation of incompetent vein using laser hx 2 ablations History of excision of lesion (01/23/11) Wide excision lesion left lower extremity with full thickness skin graft. Dr. Farfan S/P Mohs surgery for basal cell carcinoma History of tonsillectomy and adenoidectomy History of arthroscopy of knee History of cataract surgery Social History Smoking Status: Never smoker Hx Alcohol Use: No Hx Substance Use: No substance use type: does not use Physical Exam Vital Signs Last Vital Signs Temp 36.5 C 03/03/25 11:52 Pulse 103 H 03/03/25 11:52 Resp 20 03/03/25 11:52 BP 121/77 03/03/25 11:52 Pulse Ox 97 03/03/25 11:52 O2 Del Method Room Air 03/03/25 11:52 O2 Flow Rate 0 02/27/25 15:22 Testing Laboratory Results 03/03/25 06:29 03/03/25 06:29 PT 12.6 Seconds (9.0-12.0) H 02/26/25 19:32 INR 1.2 (0.9-1.1) H 02/26/25 19:32 Urine Color Yellow 03/02/25 Unknown Urine Appearance Cloudy (Clear) A 03/02/25 Unknown Urine pH 5.5 (4.5-7.5) 03/02/25 Unknown Ur Specific [place] 1.010 (1.000-1.030) 03/02/25 Unknown Urine Protein Negative (Negative) 03/02/25 Unknown Urine Glucose (UA) Negative (Negative) 03/02/25 Unknown Urine Ketones Negative (Negative) 03/02/25 Unknown Urine Nitrite Negative (Negative) 03/02/25 Unknown Ur Leukocyte Esterase 3+ (Negative) H 03/02/25 Unknown Urine WBC (Auto) >50 /hpf (0-5) H 03/02/25 Unknown Urine RBC (Auto) 11-20 /hpf (0-2) H 03/02/25 Unknown U Hyaline Cast (Auto) 0-2 /lpf (0-2) 03/02/25 Unknown U Epithel Cells (Auto) 0-2 /hpf (0-2) 03/02/25 Unknown Urine Bacteria (Auto) 1+ (None Seen) H 03/02/25 Unknown Blood Type O Positive 03/03/25 08:13 Antibody Screen NEGATIVE 03/03/25 08:13 03/02/25 Unknown Urine Culture - Final Urine,Clean Catch Three types of organisms present, all high counts. Repeat collection recommended. No further identifications or sensitivities to follow. Electrocardiogram Date: 02/26/25 DICTATED BY: Toño Gale MD Test Reason : Blood Pressure : */* mmHG Vent. Rate : 80 BPM Atrial Rate : 80 BPM P-R Int : 228 ms QRS Dur : 166 ms QT Int : 446 ms P-R-T Axes : * -68 88 degrees QTcB Int : 514 ms AV dual-paced rhythm with prolonged AV conduction Abnormal ECG When compared with ECG of 06-Dec-2024 10:46, Vent. rate has increased by 2 bpm Confirmed by Toño Gale ([id number]) on 02/27/2025 7:12:27 AM Echocardiogram Date: 02/27/25 Mild LVH LV systolic function is normal. EF 55-60% LV wall motion is normal RV is mildly dilated RV systolic function is normal. Mild AR Mild MR Mild TR
--- NOTE | 2025-03-03 15:37 | Communication Note ---
Date of Service: March 03, 2025 EGD Large cratered ulcer involving the pylorus and first part of the duodenum. Benign appearance multiple biopsies however performed including biopsy for H. pylori. Ulcer base black pigmented spot potentially source of bleeding. These do not require endoscopic intervention. Management twice daily PPI therapy x 4 weeks then PPI daily for life. Patient should try to avoid all aspirin and NSAIDs.
--- NOTE | 2025-03-03 15:41 | GI REPORT ---
[facility] Patient: JOSE RAFAEL MEJIA : 1935 Sex at : Female Age: 89 Years Procedure: Upper GI endoscopy Date: 03/03/2025 Attending Physician: Teofilo Frost MD Referring MD: Referred Self Indications: - Suspected upper gastrointestinal bleeding - Melena Medications: - Monitored Anesthesia Care Complications: - No immediate complications. Estimated Blood Loss: - Estimated blood loss was minimal. Procedure: - The egd scope was introduced through the mouth and advanced to the second part of the duodenum. - The upper GI endoscopy was accomplished without difficulty. - The patient tolerated the procedure well. Findings: - The examined esophagus was normal. - One non-bleeding cratered gastric ulcer with pigmented material was found at the pylorus. The lesion was 30 mm by 30 mm in largest dimension. Biopsies were taken with a cold forceps for histology. Estimated blood loss was minimal. - The examined duodenum was normal. Impression: - Normal esophagus. - Non-bleeding gastric ulcer with pigmented material. Biopsied. - Normal examined duodenum. Recommendation: - Await pathology results. - Twice daily PPI therapy for 1 month. Then Protonix 40 mg/day for life. This is her second ulcer with bleeding. Patient should avoid all NSAIDs and aspirin if possible. Procedure Code(s): - 07206, Esophagogastroduodenoscopy, flexible, transoral; with biopsy, single or multiple Diagnosis Code(s): - K92.1, Melena (includes Hematochezia) - K25.9, Gastric ulcer, unspecified as acute or chronic, without hemorrhage or perforation CPT(R) - 2023 copyright [employer]. All Rights Reserved. The CPT codes, CCI edits and ICD codes generated are intended as suggestions and were generated based on input data. These codes are preliminary and upon order detailer review may be revised to meet current compliance and payer requirements. The provider is responsible for the final determination of appropriate codes, and modifiers. Teofilo Frost MD This document has been electronically signed. Note Initiated:03/03/2025 Note Completed:03/03/2025 3:40 PM [id number]
--- NOTE | 2025-03-03 16:09 | Anesthesiology Progress Note ---
Date of Service March 03, 2025 Anesthesia Post Procedure Vital Signs Vital Signs: Temp Pulse Pulse Resp BP BP Pulse Ox 03/03/25 16:06 73 16 132/73 97 03/03/25 15:55 80 16 117/70 97 03/03/25 15:40 74 18 106/61 98 03/03/25 14:00 36.3 C L 105 H 18 136/90 99 03/03/25 11:52 36.5 C 103 H 20 121/77 97 03/03/25 08:31 36.2 C L 94 H 20 117/67 91 03/03/25 02:30 36.5 C 96 H 20 100/58 L 94 03/03/25 00:53 36.4 C L 82 20 99/52 L 93 03/02/25 22:37 87 03/02/25 21:40 03/02/25 20:11 36.3 C L 88 20 112/61 97 O2 Del Method 03/03/25 16:06 Room Air 03/03/25 15:55 Room Air 03/03/25 15:40 Room Air 03/03/25 14:00 Room Air 03/03/25 11:52 Room Air 03/03/25 08:31 Room Air 03/03/25 02:30 Room Air 03/03/25 00:53 Room Air 03/02/25 22:37 03/02/25 21:40 Room Air 03/02/25 20:11 Room Air Transfer of Care Handoff Completed per policy Notes Mental Status: alert / awake / arousable Patient Amnestic to Procedure: Yes Nausea / Vomiting: adequately controlled Pain: adequately controlled Airway Patency, RR, SpO2: stable & adequate BP & HR: stable & adequate Hydration State: stable & adequate Anesthetic Complications: no major complications apparent
--- NOTE | 2025-03-03 17:24 | Urology Progress Note ---
Date of Service March 03, 2025 Assessment & Plan (1) Hematuria: Plan Follow-up for hematuria She is afebrile with stable vitals at present Labs show WBCs 2.93, hemoglobin 8.1, creatinine 1.49 UA does appear possibly infected compared to admission UA Urine culture pending She is on empiric ceftriaxone CTAP reviewed - Minimal residual right pelvocaliectasis otherwise no significant findings She is voiding spontaneously and denies hematuria today. Can continue to monito r. Continue antibiotics and follow culture. Will arrange outpatient follow-up with our service. Urology will sign off, can recall as needed Admission and Anticipated Discharge Date Admission Date: February 26, 2025 Subjective Patient seen at bedside today Awake and sitting in bedside chair on arrival No acute distress Reports she had an EGD today and found to have bleeding ulcer Denies any pain or discomfort Denies fever, chills, nausea, vomiting Denies gross hematuria and dysuria Review of Systems Constitutional: as per Subjective / HPI Genitourinary: as per Subjective / HPI Physical Exam Constitutional: no acute distress Respiratory: no respiratory distress and no labored breathing Musculoskeletal: Head/Neck/Chest: normocephalic Neurologic: awake Psychiatric: A+Ox3, euthymic affect Genitourinary: Clear yellow urine in canister Results & Data Vital Signs (Past 12 Hours) Vital Signs Temp Pulse Resp BP Pulse Ox O2 Del Method 03/03/25 16:06 73 16 132/73 97 Room Air 03/03/25 15:55 80 16 117/70 97 Room Air 03/03/25 15:40 74 18 106/61 98 Room Air 03/03/25 14:00 36.3 C L 105 H 18 136/90 99 Room Air 03/03/25 11:52 36.5 C 103 H 20 121/77 97 Room Air 03/03/25 08:31 36.2 C L 94 H 20 117/67 91 Room Air PG Care Time/CCT Total # of Minutes Spent Total Time Spent with Patient: Total time spent is greater than 50% in coordination of care (as documented) at patient's floor/unit and/or counseling patient: Coding Level of Care Code 12316 SUB INP/OBS CARE 11/13MIN Diagnoses Hematuria R31.9
[2025-03-04 01:21] LABS: Alpha 1 Globulin 0.4 g/dL (0.2-0.3); Alpha 2 Globulin 0.6 g/dL (0.5-0.9); Beta-1-Globulin 0.4 g/dL (0.4-0.6); Beta-2-Globulin 0.3 g/dL (0.2-0.5); Copper, Serum 96 mcg/dL (70-175); Free Kappa 59.9 mg/L (3.3-19.4); Free Kappa/Lambda Ratio 1.45 (0.26-1.65); Free Lambda 41.2 mg/L (5.7-26.3); Monoclonal Protein Band 1 DNR g/dL (NONE DETECTED); Monoclonal Protein Band 2 DNR g/dL (NONE DETECTED); Monoclonal Protein Band 3 DNR g/dL (NONE DETECTED); Total Protein 5.7 g/dL (6.1-8.1)
[2025-03-04 06:08] LABS: Babesia microti DNA Not Detected (Not Detected)
[2025-03-04 06:16] LABS: Hematocrit (blood only) 24.1 % (37.0-47.0); Hemoglobin 7.7 g/dl (12.0-16.0); Mean Corpuscular Hemoglobin 28.4 pg (25.0-34.0); Mean Corpuscular Volume 88.9 fL (80.0-100.0); Mean Platelet Volume 11.2 fL (9.4-12.4); Platelet Count 81 K/uL (130-400); RDW Coefficient of Variation 16.9 % (11.5-14.5); RDW Standard Deviation 54.4 fL (36.4-46.3); Red Blood Count 2.71 M/uL (4.20-5.40); White Blood Count 3.12 K/ul (4.8-10.8)
[2025-03-04 06:40] LABS: BUN Creatinine Ratio 29.7 (10-20); C Reactive Protein 2.69 mg/dl (0-0.5); Calcium 8.9 mg/dl (8.6-10.3); Creatinine Clr Calc Pharmacy 30.9 ml/min; Magnesium 1.9 mg/dl (1.7-2.4)
[2025-03-04 07:09] LABS: Basophils # (auto) 0.03 K/uL (0.00-0.20); Eosinophils # (auto) 0.14 K/uL (0.00-0.50); Eosinophils % (auto) 4.5 %; Lymphocytes # (auto) 0.84 K/uL (1.20-3.40); Lymphocytes % (auto) 26.9 %; Monocytes # (auto) 0.72 K/uL (0.11-0.59); Monocytes % (auto) 23.1 %; Neutrophils # (auto) 1.39 K/uL (1.40-6.50); Neutrophils % (auto) 44.5 %; RBC Morphology Unremarkable
--- NOTE | 2025-03-04 08:05 | Hospitalist Progress Note ---
Date of Service March 04, 2025 Assessment & Plan (1) Acute exacerbation of CHF (congestive heart failure): (2) Atrial fibrillation: (3) HTN (hypertension): (4) Right ureteral calculus: (5) Pancytopenia: (6) Pacemaker: (7) Hyperthyroidism: (8) Heme positive stool: (9) Hematuria: Miki Garcia is a 89F w/ PMH of HTN, AFib w/ pacemaker, nephrolithiasis, CKD, Vitamin D deficiency, arthritis, and chronic venous insufficiency who presented 02/26 for evaluation of increasing fatigue, edema, and dyspnea on exertion. Tx CHF however then developing blood in urine and stool noting recent meloxicam use on Eliquis for afib w/ hx GI bleed 2023 requiring continued inpatient stay/evaluation. #ANEMIA - suspect MULTIFACTORIAL but concerns for acute GI bleeding in patient w/ prior ulcer in 2023 on coumadin and presently was on eliquis for afib but also MELOXICAM for joint pain w drop in hgb and PJ w/ dark stools concerning for GI bleed, +fecal occult blood and eliquis placed on HOLD/no NSAIDs have been provided while inpatient. CTAP obtained given hgb drop, eval urinary source w/ clots given prior admission and does have some dilatation R pelvocaliectasis but improvement from prior. No large clot burden in urine and does appear clearer in cannister and denied cloting today but AC has been on hold and UA does appear possibly infected compared to admission UA. No significant GI source bleeding noted/esophagitis/etc. Also note +rouleoux formation on prior peripheral smear and cannot r/o underlying bone marrow process as well and SPEP/UPEP/studies pending as below and may need oncology f/u, possible bone marrow biopsy in the future GI consulted s/p EGD with Dr Frost on 03/03-->EGD w/ LARGE cratered ulcer involving pylorus and first part of the duodenum. Noted ulcer base black pigmented spot potentially source of bleeding -- did NOT need intervention. Benign appearance but biopsies taken/Hpylori testing. GI rec PPI BID x 4 wks, then lifelong. NO ASA/NSAIDs Continue PPI BID, can convert to PO as tolerating diet Eliquis remains on hold- Discussed w/ GI and rec hold eliquis at least 7 days. BROWN BM reported overnight but hgb 7.7 today but do note was on IVF and could have some aspect of dilution Iron studies low and did get venofer 200mg x 1 --> discussed w/ supervising provider as cardiology w/o strong recs for PRBC and supervising provider ok w/ Venofer 300mg and monitoring repeat blood counts but can consider PRBC if needed Start Lasix 20mg PO q2d for now, recs M/W/F by cardiology Monitor blood counts/exam in AM #Acute HFpEF #Afib w/ RVR - not on diuretics at baseline and has not had CHF exacerbation in the past. ?2nd to recent severe sepsis/deconditioning/high salt loading foods with soup/?elevated HR w/ her afib, ?recent reduction in dosing but ?if related to Afib w/ RVR but also could be related to bleeding above w/ recent NSAID/AC use ECHO w/ EF 55-60%, normal RV function, mild valvular disease (mild AR, MR, TR), mild pulm HTN Cards consulted, Josseline- appreciate assistance/recs STOPPED Multaq Metoprolol increased to 25mg BID (patient did report was on this dose in past, was also on from dc summary earlier this year but was reduced to 25mg outpatient recently) Lasix 40mg IV on 02/27, repeat 03/01 but cautious w/ Cr but again ?related to ABLA from GI source (also w/ clots/possible UTI) Cr down to 1.38 and cards rec 20mg M/W/ and have started today w/ Venofer Weights stable/on RA and reports improvement in breathing off such but will start/monitor response for now #UTI, Hematuria - suspected/possible w/ hematuria/clots but ?related to low plts w/ recent NSAID/AC use. Urology consulted/CTAP prior w/o significant clot burden and eliquis has been on hold and no further bleeding reported since holding and started Ceftriaxone for possible +UA, urine cx pending. Will need f/u urology outpt #PJ, hyperkalemia - baseline ~1, rise to 1.9 but was 1.7 on admit and ?related to recent meloxicam use w/ lisinopril and have not been continued on either but ?also could have been worsened w/ acute bleeding Urology consulted for above, abx continued/urine cx pending Eliquis on hold, PPI continued for GI bleeding above. Iron studies checked for completeness and LOW iron (27), trans % sat 9 and ferritin 84 --> Venofer 200mg IV prior and held off diuretics w/ concerns acute bleeding Cr to 1.38 today and trial 20mg lasix w/ Venofer 300mg IV Renal dose meds/avoid toxins. Remains OFF lisinopril, likely will dc at dc as no recs for such from cardiology given hyperkalemia/PJ Will need nephrology f/u at dc given +M spike and does report joint pains given most recent note has patient w/ denying arthralgias/joint pains but does report chronic Monitor BMP in AM. #Pancytopenia As above, with worsening anemia concerning for acute blood loss anemia from GI vs source. Had mildly low WBCs in November, wbc count improved, now since January has been 4 or less with chronic anemia. B12/folate wnl. Copper pending low plt since Nov w/ peripheral smear noting rouloux noted, previous SPEP years ago did show an M-spike --> all worrisome for primary bone marrow disease. SPEP/UPEP; serum immunofixation, light chains, etc --> studies PENDING and will need f/u as discussed w/ daughter/patient --> once returned if worrisome for MM/similar will need oncology/bone marrow bx. Note does have elevated ESR/CRP which could be in setting of anemia/bleeding but w/ pancytopenia and below should have eval for underlying MM in f/u Will need f/u nephrology as well as reported no joint pains/arthralgias w/ prior findings but patient endorses chronic joint pains (worse in kness) in addition to possibly heme/onc #pacemaker status - interrogation shows that she is undersensing on the atrial lead, presenting rhythm afib w/ ventricular pacing at 80bpm, estimated longevity ~5 months. Metoprolol as above and WILL NEED BATTERY EXCHANGE #Hypertension - stable/low at times but tolerating metoprolol for HR control. Remains OFF lisinopril as above. Lasix as outlined and will monitor #Hoarse Voice - intermittent hoarseness since extubation after ICU admission in November 2024, ?potential for vocal cord injury. Daughter req further eval pending resolution in acute conditions. Tolerating diet and rec f/u otolaryngology post-dc for laryngoscopy . PPI for above and appeared improved on repeat. ?if needing continued PPI baseline but would continue w/ concerns above #Deconditioning - suspected 2nd to recent prolonged admission in November 2024 here at [facility] due to septic shock from obstructing kidney stone. S/p rehab at [facility], then was at [facility], then [facility], and then ultimately at [facility] with home PT/OT there PT/OT and plans for return to [facility] [place] Dispo: continued inpatient stay and Venofer IV/monitoring blood counts and remains on PPI. Lasix started and will order PRBC if needed. Eliquis to remain on HOLD until eval by cards outpatient. [facility] vs Friday pending course/repeat blood counts Voicemail left for daughter AM 03/04. Cell for Isabela is [phone] Admission and Anticipated Discharge Date Admission Date: February 26, 2025 Supervising Physician Co-Signing Physician Notes The patient was not seen by me. The chart was reviewed. Case discussed with JEROMY Thurston. Agree with assessment and plan Subjective Eval this morning, sitting up in bed. Feeling better. Reports breathing stable, on room air. Getting Venofer, lasix PO. No CP/abdominal pain, nausea/vomiting. Reports went to bathroom last evening, more brown in color. Discussed EGD results, eliquis on hold x 1 month and can consider resuming but also should discuss possible watchman w/ cardiology. Presently getting Venofer, will monitor labs this afternoon. If further drop, is agreeable to unit of PRBC> Questions/concerns addressed at this time. Physical Exam 2 Physical Exam: General: 89yo female sitting up in recliner chair eating breakfast, reports feeling better, no SOB, some NICHOLAS but improved, no abdominal pain and improved appetite HEENT: head atraumatic, normocephalic, mmm, trachea midline, +JVD Resp: diminished in the bases, no wheezing/rales, on room air 94% CV: irregularly irregular, rates 80-90s, +systolic murmur, NO PITTING EDEMA, chronic venous changes, OA of kness but calves nontender and pulses present GI: +BS, soft/NT no meza, purewick in place w/ cannister on wall with YELLOW URINE, no clots/hematuria noted MSK/Neuro: b/l OA knees but otherwise nonfocal, not confused, answering questions appropriately Psych: AOx3, cooperative with exam Results & Data Results & Data Vital Signs (Past 12 Hours) Vital Signs Temp Pulse Resp BP Pulse Ox O2 Del Method 03/04/25 03:02 36.3 C L 91 H 16 105/65 95 Room Air 03/03/25 22:36 36.4 C L 93 H 16 104/63 99 Room Air 03/03/25 20:05 36.3 C L 115 H 16 138/73 98 Room Air Laboratory Results 03/04/25 05:41 03/04/25 05:41 PG Care Time/CCT Total # of Minutes Spent Total Time Spent with Patient: Total time spent is greater than 50% in coordination of care (as documented) at patient's floor/unit and/or counseling patient: Coding Level of Care Code 47536 SUB INP/OBS CARE 3/50MIN Diagnoses Acute exacerbation of CHF (congestive heart failure) I50.9 Atrial fibrillation, unspecified type I48.91 Atrial fibrillation type: unspecified HTN (hypertension) I10 Right ureteral calculus N20.1 Pancytopenia D61.818 Pacemaker Z95.0 Hyperthyroidism E05.90 Heme positive stool R19.5 Hematuria R31.9 (2) Atrial fibrillation Atrial fibrillation type: unspecified Qualified Code(s): I48.91 - Unspecified atrial fibrillation
[2025-03-04] MEDS: FUROSEMIDE 20 MG TAB PO SCH (09:00)
--- NOTE | 2025-03-04 09:51 | Cardiology Progress Note ---
Date of Service March 04, 2025 Assessment & Plan (1) Acute kidney injury superimposed on chronic kidney disease: Plan: Current Inpatient Medications Acetaminophen (Acetaminophen 325 Mg Tab) 650 mg PO Q4H PRN PRN Reason: Pain or Fever Stop: 03/29/25 01:50 Last Admin: 03/02/25 08:11 Dose: 650 mg Acetaminophen (Acetaminophen 500 Mg Tab) 1,000 mg PO BID [facility] Stop: 03/31/25 20:59 Last Admin: 03/03/25 08:49 Dose: 1,000 mg Apixaban (Apixaban 2.5 Mg Tab) 2.5 mg PO BID [facility] Stop: 03/29/25 08:59 Last Admin: 03/01/25 20:16 Dose: 2.5 mg Benzonatate (Benzonatate 100 Mg Capsule) 100 mg PO Q8H PRN PRN Reason: Cough Stop: 03/29/25 01:50 Pantoprazole Sodium (Protonix) 40 mg in 10 mls @ 5 mls/min IV BID [facility] Stop: 04/01/25 08:59 Last Admin: 03/03/25 08:41 Dose: 5 mls/min Ceftriaxone Sodium (Rocephin) 2,000 mg in 50 mls @ 100 mls/hr IV Q24H [facility] Stop: 03/13/25 07:59 Last Infusion: 03/03/25 09:34 Dose: Infused Sodium Chloride (Nss) 100 mls @ 15 mls/hr IV .Q6H40M PRN PRN Reason: For Transfusion Duration Stop: 03/03/25 16:05 Metoprolol Succinate (Metoprolol Succ 25mg Ext Rel Tab) 25 mg PO BID [facility] Stop: 03/30/25 11:14 Last Admin: 03/03/25 08:46 Dose: 25 mg Ondansetron HCl (Ondansetron Inj 2 Mg/Ml 2 Ml Vial) 4 mg IV Q6H PRN PRN Reason: Nausea And Vomiting Stop: 03/29/25 01:50 Last Admin: 02/27/25 13:55 Dose: 4 mg Thiamine HCl (Thiamine Hcl 100 Mg Tab) 100 mg PO DAILY [facility] Stop: 03/29/25 08:59 Last Admin: 03/03/25 08:47 Dose: 100 mg (2) Acute exacerbation of CHF (congestive heart failure): (3) Acute dyspnea: (4) PAF (paroxysmal atrial fibrillation): (5) Atrial fibrillation with rapid ventricular response: Plan 02/27/25 per JEROMY Block Acute decompensated diastolic congestive heart failure. Resting echocardiography on February 27, 2025 reveals preserved LV systolic function, EF 55 to 60%. Right ventricle mildly dilated, with normal function. Only mild mitral, tricuspid, and aortic insufficiency observed. Pulmonary artery systolic pressure 42 mmHg (mildly elevated). - Continue IV furosemide of 40 mg twice per day. - Daily metabolic panels Paroxysmal atrial fibrillation with a rapid ventricular response. Likely contributing to the above. Prior use of sotalol resulted in unacceptable QT prolongation. Amiodarone previously discontinued due to hyperthyroidism. Patient failing Multaq; since December 06, 2024 patient has had a 36.4% AT/AF burden. Average ventricular rates elevated when in atrial fibrillation. - Discontinue Multaq. - Increase metoprolol succinate to 50 mg twice a day - Add digoxin if unable to tolerate titration of beta-nicole - Avoid calcium channel blockers. 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 Pacemaker interrogation on February 27, 2025 demonstrates undersensing on the atrial lead. Presenting rhythm is atrial fibrillation with ventricular pacing at 80 bpm. Estimated remaining longevity is 5 months. - No current indication for generator exchange - Future outpatient generator exchange discussed. Hypertension. Controlled. CKD. Outpatient Plant Maintenance Worker is Dr. Tucker. Creatinine at baseline. Follow via daily metabolic panels. 02/28/25: Per JEROMY Baldwin Acute on chronic HFpEF -echocardiography on February 27, 2025 reveals preserved LV systolic function, EF 55 to 60%. Right ventricle mildly dilated, with normal function. Only mild mitral, tricuspid, and aortic insufficiency observed. Pulmonary artery systolic pressure 42 mmHg (mildly elevated). -patient diuresed since admission -I+O's not measured initially. Output of 1500 ml since yesterday -weight down 3 kg since admission -creatinine increasing to 1.9 this morning -interval improvement in volume status on exam -hold additional diuretics today -monitor renal function/electrolytes -mild hypotension overnight noted as well -patient may need low dose diuretic on discharge. Monior renal function PAF -Afib burden increasing on recent device interrogations -Persistent afib since admission with intermittent pacing -Stop Multaq due to lack of effectiveness -Previously failed sotalol (prolonged QT) and amiodarone (hyperthyroidism) -Increase metoprolol 25 mg BID. it appears patient was to be taking metoprolol 50 mg of metoprolol, but she reports only taking 25. -continue Eliquis 2.5 mg BDI (low dose for age/renal dysfunction) 03/01/25 Acute on chronic HFpEF -Echo 02/27/25 reveals EF 55/60%. ventricle mildly dilated. Mild Tricuspid and aortic insufficiency. -Diuresed well with Lasix, yesterdays dose held due to creatinine elevation -Today creatinine improved from 1.90 to 1.74 today -Weight up today to 92.4kg from 90kg 02/28/25 -I/O inaccurate as she is incontinent/immobile and using a purwick device. -Bp stable overnight with this mornings 105/69 -Continue monitoring renal function and electrolytes -Consider low home dose of Lasix daily on D/C PAF -A-fib controlled on monitor at 80 bpm. -Continue Metoprolol 25mg BID -Continue Eliquis 2.5mg BID -Pacemaker shows A-fib burden increasing -A/V ablation being considered -Device estimated at 5 months life. -Aware of replacement in coming months Ambulatory Deconditioning -Patient reports worsening mobility and deconditioning since November admission and subsequent movements from different facilities with lack of PT consistency -Pt currently 1-2 person assist with walker. Patient states she was fully functional with walker before her hospitalization in November. -Physical therapy recommended skilled PT while inpatient then discharged home with Home PT services. -OT following patient and recommends continued OT while admitted and OT at home on D/C. Case discussed with Dr. Keane I spent a total of 60 minutes on the date of service in preparation, delivery, and documentation of the care provided to this patient, excluding any time spent in the performance of separately billed services. Toño ROTHMAN Department of Cardiology, [facility] This chart was completed in part utilizing Speech Voice Recognition Software. Grammatical errors, random word insertions, pronoun errors, and incomplete sentences are an occasional consequence of this system due to software limitations, ambient noise, and hardware issues. Any formal questions or concerns about the content, text, or information contained within the body of this dictation should be directly addressed to the provider for clarification. 03/02/25 Acute on chronic HFpEF -Weight down today at 86.6 -Creatinine improved to 1.56 from 1.74 -Transition to 20mg Lasix M,W,F -bmp repeat 1-2 weeks on D/C PAF -Tolerating Metoprolol well continue 25mg BID -BP 103/69 HR 98 -A-fib rate controlled on TELE -Eliquis on hold as + stool occult result -Hemoglobin 8.5 down from 9.8 on 03/01. Case discussed with Dr. Lakhwinder Kirby spent a total of 60 minutes on the date of service in preparation, delivery, and documentation of the care provided to this patient, excluding any time spent in the performance of separately billed services. Toño ROTHMAN Department of Cardiology, [facility] This chart was completed in part utilizing Speech Voice Recognition Software. Grammatical errors, random word insertions, pronoun errors, and incomplete sentences are an occasional consequence of this system due to software limitations, ambient noise, and hardware issues. Any formal questions or concerns about the content, text, or information contained within the body of this dictation should be directly addressed to the provider for clarification. 03/03/25 Acute on chronic HFpEF -Weight 87.1 today -Creatinine improved to 1.49 -Transition to 20mg Lasix M,W,F -bmp repeat 1-2 weeks on D/C PAF -Tolerating Metoprolol well continue 25mg BID -BP 121/77 HR 98 -A-fib rate controlled on TELE -Eliquis on hold as + stool occult result -Hemoglobin 8.1 EGD today Case discussed with Dr. Lakhwinder Kirby spent a total of 60 minutes on the date of service in preparation, delivery, and documentation of the care provided to this patient, excluding any time spent in the performance of separately billed services. Toño ROTHMAN Department of Cardiology, [facility] This chart was completed in part utilizing Speech Voice Recognition Software. Grammatical errors, random word insertions, pronoun errors, and incomplete sentences are an occasional consequence of this system due to software limitations, ambient noise, and hardware issues. Any formal questions or concerns about the content, text, or information contained within the body of this dictation should be directly addressed to the provider for clarification. 03/04/25 Acute on chronic HFpEF -Weight today 87.9 -Am dose 20mg Lasix administered per recommendation -Creatinine 1.38 -Will need BMP 1-2 weeks post D/C PAF -A-fib rate controlled on monitor -BP 137/86 -Continue Metoprolol 25mg BID -Eliquis on hold, awaiting GI recommendations for reinitiation of Eliquis -Hemoglobin 7.7 today Hospitalist aware and managing. Case discussed with Dr. Keane I spent a total of 60 minutes on the date of service in preparation, delivery, and documentation of the care provided to this patient, excluding any time spent in the performance of separately billed services. Toño ROTHMAN Department of Cardiology, [facility] This chart was completed in part utilizing Speech Voice Recognition Software. Grammatical errors, random word insertions, pronoun errors, and incomplete sentences are an occasional consequence of this system due to software limitations, ambient noise, and hardware issues. Any formal questions or concerns about the content, text, or information contained within the body of this dictation should be directly addressed to the provider for clarification. Admission and Anticipated Discharge Date Admission Date: February 26, 2025 Supervising Physician Co-Signing Physician Notes I have personally performed a history and physical examination on the patient. I have reviewed the advance practitioner's documentation, and I agree with, and take responsibility for the plan of care. 89-year-old female seen examined at the bedside. Feeling better, however, hemoglobin trending downward to 7.7 g/dl today. Nonbleeding gastric ulcer visualized on endoscopy 03/03/2025. Gastroenterology recommending proton pump inhibitor twice daily for 1 month then once daily lifelong. Denies recurrent hematuria. Heme positive stools noted. Thrombocytopenia and leukopenia unchanged. Continue to hold Eliquis for minimum of 2 weeks as recommended by gastroenterology. Reevaluation in the outpatient cardiology clinic to discuss referral for Watchman device implantation. Continue metoprolol 25 mg twice daily. Multaq discontinued in favor of rate control strategy. Oral Lasix on Friday, Friday, and Friday. No further inpatient cardiac testing or intervention recommended at this time. Cardiology will sign off. Please call with additional concerns/questions. I spent a total of 25 minutes on the date of service in preparation, delivery, and documentation of the care provided to this patient, excluding any time spent in the performance of separately billed services. Roque Keane DO, FACC Subjective Pt comfortable with no complaints today. States her only issue is she's worried about her knees and ambulation issues. Harley any lightheadedness, dizziness, cp, sob, palpitations. A-fib controlled on monitor with BP's stable. Does have +1 Ankle edema, but did receive recommended am dose of Lasix 20mg. Hemoglobin 7.7 this am Hospitalist managing. EGD completed yesterday awaiting GI recommendation for reinitiation of Eliquis. Will discuss possibilities of alternative therapies when seen out patient. Review of Systems Review of Systems: All systems reviewed and are unremarkable except for what is noted in HPI. Physical Exam Physical Exam: General: Alert. No distress. Comfortable. Cooperative Eyes: PER. Conjunctiva pink, sclera clear. HEENT: Normocephalic. Atraumatic. Neck: No carotid bruits. No overt JVD. Heart: Irregular at 90 bpm. Soft systolic ejection murmur. No diastolic murmur. Lungs: Diminished however lungs clear to auscultation on room air Abdomen: +BS. Soft. Nontender. No masses. No organomegaly. Extremities: +1Pitting ankle edema. Marked stasis changes, venous insufficiency, healed ulcerations. Limited neurological examination: No focal deficit Results & Data Vital Signs (Past 12 Hours) Vital Signs Temp Pulse Pulse Resp BP Pulse Ox O2 Del Method 03/04/25 08:19 84 03/04/25 08:05 36.4 C L 96 H 20 137/86 95 Room Air 03/04/25 03:02 36.3 C L 91 H 16 105/65 95 Room Air 03/03/25 22:36 36.4 C L 93 H 16 104/63 99 Room Air Laboratory Results CBC 03/04/25 Range/Units 05:41 WBC 3.12 L (4.8-10.8) K/ul RBC 2.71 L (4.20-5.40) M/uL Hgb 7.7 L (12.0-16.0) g/dl Hct 24.1 L (37.0-47.0) % Plt Count 81 L (130-400) K/uL Neut # (Auto) 1.39 L (1.40-6.50) K/uL Lymph # (Auto) 0.84 L (1.20-3.40) K/uL [place] # (Auto) 0.72 H (0.11-0.59) K/uL Eos # (Auto) 0.14 (0.00-0.50) K/uL Baso # (Auto) 0.03 (0.00-0.20) K/uL Comprehensive Metabolic Panel 03/04/25 Range/Units 05:41 Sodium 141 (136-145) mmol/L Potassium 5.0 (3.5-5.1) mmol/L Chloride 109 H (98-107) mmol/L Carbon Dioxide 27 (21-32) mmol/L BUN 41 H (6-23) mg/dl Creatinine 1.38 H (0.6-1.2) mg/dl Glucose 76 (70-99(Fasting)) mg/dl Calcium 8.9 (8.6-10.3) mg/dl Intake and Output 03/03/25 03/04/25 03/04/25 22:59 06:59 14:59 Intake Total 250 / 900 100 / 900 Output Total 200 / 400 Balance 250 / 500 -100 / 500 Intake: IV 0 / 550 Sodium Chloride 0.9% 500 ml @ 0 / 0 15 mls/hr IV .Q24H [facility] Rx#: [id number] Oral 250 / 350 100 / 350 Output: Urine Amount (Catheter) 200 / 200 External 200 / 200 Other: Weight 87.9 kg Medications Administered Current Inpatient Medications Acetaminophen (Acetaminophen 325 Mg Tab) 650 mg PO Q4H PRN PRN Reason: Pain or Fever Stop: 03/29/25 01:50 Last Admin: 03/02/25 08:11 Dose: 650 mg Acetaminophen (Acetaminophen 500 Mg Tab) 1,000 mg PO BID [facility] Stop: 03/31/25 20:59 Last Admin: 03/04/25 08:54 Dose: 1,000 mg Apixaban (Apixaban 2.5 Mg Tab) 2.5 mg PO BID [facility] Stop: 03/29/25 08:59 Last Admin: 03/01/25 20:16 Dose: 2.5 mg Benzonatate (Benzonatate 100 Mg Capsule) 100 mg PO Q8H PRN PRN Reason: Cough Stop: 03/29/25 01:50 Furosemide (Furosemide 20 Mg Tab) 20 mg PO Q2D [facility] Stop: 04/03/25 07:59 Pantoprazole Sodium (Protonix) 40 mg in 10 mls @ 5 mls/min IV BID [facility] Stop: 04/01/25 08:59 Last Admin: 03/04/25 08:45 Dose: 5 mls/min Ceftriaxone Sodium (Rocephin) 2,000 mg in 50 mls @ 100 mls/hr IV Q24H [facility] Stop: 03/13/25 07:59 Last Admin: 03/04/25 08:45 Dose: 100 mls/hr Iron Sucrose 300 mg/ Sodium (Chloride) 265 mls @ 176.667 mls/hr IV TODAY ONE Stop: 03/04/25 09:59 Metoprolol Succinate (Metoprolol Succ 25mg Ext Rel Tab) 25 mg PO BID [facility] Stop: 03/30/25 11:14 Last Admin: 03/04/25 08:46 Dose: 25 mg Ondansetron HCl (Ondansetron Inj 2 Mg/Ml 2 Ml Vial) 4 mg IV Q6H PRN PRN Reason: Nausea And Vomiting Stop: 03/29/25 01:50 Last Admin: 02/27/25 13:55 Dose: 4 mg Thiamine HCl (Thiamine Hcl 100 Mg Tab) 100 mg PO DAILY [facility] Stop: 03/29/25 08:59 Last Admin: 03/04/25 08:46 Dose: 100 mg
[2025-03-04] MEDS: IRON SUCROSE 300 MG in SODIUM CHLORIDE 0.9% 250 ML IV ONE (12:00)
--- NOTE | 2025-03-04 14:17 | Gastroenterology Progress Note ---
Date of Service March 04, 2025 Assessment & Plan (1) Heme positive stool: Plan: patient feeling well - continue to follow hgb/hct. transfuse as needed. - Continue with protonix 40mg bid x 4 weeks then 40mg daily for life. - Patient should try to avoid all aspirin and NSAIDs. Admission and Anticipated Discharge Date Admission Date: February 26, 2025 Supervising Physician Co-Signing Physician Notes No signs of bleeding. Pyloric channel duodenal ulcer. Biopsies pending though appeared benign. No anticoagulation for 7 to 10 days. Baby aspirin could be taken if felt to be helpful or required. Long-term PPI suggested. GI signs off reconsult as needed Subjective patient feels well. tolerating diet. no nausea, vomiting, abdominal pain. hgb 7.7 (was 8.1). EGD 03/04/25 Large ulcer involving the pylorus and first part of the duodenum. Ulcer base black pigmented spot potentially source of bleeding. Review of Systems Review of Systems: All systems reviewed & are unremarkable except as noted in HPI & below Physical Exam Constitutional: WD/WN, vitals as above Respiratory: normal respiratory effort, lungs clear to auscultation Cardiovascular: Rate/Rhythm: regular rate and regular rhythm Gastrointestinal (Abdomen): normal bowel sounds, soft, nontender, no hepatosplenomegaly Psychiatric: Orientation: alert and oriented x 3 Affect: euthymic affect Results & Data Results & Data Vital Signs (Past 12 Hours) Vital Signs Temp Pulse Pulse Resp BP Pulse Ox O2 Del Method 03/04/25 10:19 97.3 F L 85 18 107/68 94 Room Air 03/04/25 08:19 84 03/04/25 08:05 97.5 F L 96 H 20 137/86 95 Room Air 03/04/25 03:02 97.3 F L 91 H 16 105/65 95 Room Air Coding Level of Care Code 17896 SUB INP/OBS CARE 11/13MIN Diagnoses Heme positive stool R19.5
[2025-03-04 17:11] LABS: Hematocrit (blood only) 25.6 % (37.0-47.0); Hemoglobin 8.1 g/dl (12.0-16.0)
[2025-03-05 06:51] LABS: Hematocrit (blood only) 23.6 % (37.0-47.0); Hemoglobin 7.6 g/dl (12.0-16.0); Mean Corpuscular Hemoglobin 28.5 pg (25.0-34.0); Mean Corpuscular Hgb Conc 32.2 g/dL (32.0-36.0); Mean Corpuscular Volume 88.4 fL (80.0-100.0); Mean Platelet Volume 10.9 fL (9.4-12.4); Nucleated RBC # (auto) 0.02 K/uL (0.00-0.12); Nucleated RBC % (auto) 0.6 %; Platelet Count 86 K/uL (130-400); RDW Coefficient of Variation 16.9 % (11.5-14.5); RDW Standard Deviation 54.1 fL (36.4-46.3); Red Blood Count 2.67 M/uL (4.20-5.40); White Blood Count 3.58 K/ul (4.8-10.8)
[2025-03-05 07:12] LABS: Basophils # (auto) 0.02 K/uL (0.00-0.20); Basophils % (auto) 0.6 %; Eosinophils # (auto) 0.12 K/uL (0.00-0.50); Eosinophils % (auto) 3.4 %; Immature Granulocytes # (auto) 0.01 K/uL (0.01-0.20); Immature Granulocytes % (auto) 0.3 %; Lymphocytes # (auto) 0.71 K/uL (1.20-3.40); Lymphocytes % (auto) 19.8 %; Monocytes # (auto) 0.87 K/uL (0.11-0.59); Monocytes % (auto) 24.3 %; Neutrophils # (auto) 1.85 K/uL (1.40-6.50); Neutrophils % (auto) 51.6 %; RBC Morphology Unremarkable
[2025-03-05 07:20] LABS: Calcium 8.7 mg/dl (8.6-10.3); Creatinine Clr Calc Pharmacy 34.7 ml/min; Potassium 4.5 mmol/L (3.5-5.1)
--- NOTE | 2025-03-05 08:10 | Hospitalist Progress Note ---
Date of Service March 05, 2025 Assessment & Plan (1) Acute exacerbation of CHF (congestive heart failure): (2) Atrial fibrillation: (3) HTN (hypertension): (4) Right ureteral calculus: (5) Pancytopenia: (6) Pacemaker: (7) Hyperthyroidism: (8) Heme positive stool: (9) Hematuria: Miki Garcia is a 89F w/ PMH of HTN, AFib w/ pacemaker, nephrolithiasis, CKD, Vitamin D deficiency, arthritis, and chronic venous insufficiency who presented 02/26 for evaluation of increasing fatigue, edema, and dyspnea on exertion. Tx CHF however then developing blood in urine and stool noting recent meloxicam use on Eliquis for afib w/ hx GI bleed 2023 requiring continued inpatient stay/evaluation. #ANEMIA, #suspected UGIB, #ABLA- suspect MULTIFACTORIAL but concerns for acute GI bleeding in patient w/ prior ulcer in 2023 on coumadin and presently was on eliquis for afib but also MELOXICAM for joint pain w drop in hgb and PJ w/ dark stools concerning for GI bleed, +fecal occult blood and eliquis placed on HOLD/no NSAIDs have been provided while inpatient. CTAP obtained given hgb drop, eval urinary source w/ clots given prior admission and does have some dilatation R pelvocaliectasis but improvement from prior. No large clot burden in urine and does appear clearer in cannister and denied cloting today but AC has been on hold and UA does appear possibly infected compared to admission UA. No significant GI source bleeding noted/esophagitis/etc. Also note +rouleoux formation on prior peripheral smear and cannot r/o underlying bone marrow process as well and SPEP/UPEP/studies pending as below and may need oncology f/u, possible bone marrow biopsy in the future GI consulted, s/p EGD with Dr Frost on 03/03 -->EGD w/ LARGE cratered ulcer involving pylorus and first part of the duodenum. Noted ulcer base black pigmented spot potentially source of bleeding -- did NOT need intervention. Benign appearance but biopsies taken/Hpylori testing. GI rec PPI BID x 4 wks, then lifelong. NO ASA/NSAIDs, rec holding eliquis at least 7 days. Per discussion w/ Dr Keane, will plan for 14 days and they will resume as outpatient in follow up when deemed appropriate PPI BID, will convert to PO BID Eliquis on hold as discussed, brown/yellow BM reported Hgb to 7.6 today, did get Venofer 200mg + 300mg and hgb was >8 and no further bleeding reported and ?if 2nd to clearing out. --> Obtained consent for PRBC transfusion this morning and will transfuse 1u PRBC and monitor repeat counts. Lasix 20mg IV w/ PRBC given Cr improved/down to 1.23 w/ new CHF below Monitor CBC in AM #Acute HFpEF, #Afib w/ RVR - not on diuretics at baseline and has not had CHF exacerbation in the past. ?2nd to recent severe sepsis/deconditioning/high salt loading foods with soup/?elevated HR w/ her afib, ?recent reduction in dosing but ?if related to Afib w/ RVR but also could be related to bleeding above w/ recent NSAID/AC use ECHO w/ EF 55-60%, normal RV function, mild valvular disease (mild AR, MR, TR), mild pulm HTN Cards consulted, Multaq discontinued. Metoprolol increased to BID and telemetry w/ afib/paced, 80-90s and stable. Recs for lasix 20mg M/W/F and did get dose 03/04. Prior 40mg IV BID ordered on admit but stopped w/ PJ below Lasix w/ PRBC above given stable renal function at this time Will continue to monitor #UTI, Hematuria- suspected/possible w/ hematuria/clots but ?related to low plts w/ recent NSAID/AC use. Urology consulted/CTAP prior w/o significant clot burden and eliquis has been on hold and no further bleeding reported since holding. UA appeared + and CTX IV started. Urine cx rec repeat collection and has been ordered but on CTX and today is day 3 (03/05). Monitor f/u urine cx #PJ, hyperkalemia - baseline ~1, w/ 1.7 on admit. ?2nd to NSAID use +/- GI bleeding as above +/- CHF from afib w/ RVR and recent lisinopril use Lasix ordered on admission and then held but have given 20mg yesterday (03/04) and Cr to 1.23 but giving dose Lasix 20mg IV w/ PRBC to prevent overload Iron studies low and has received 200mg + 300mg + 300mg however due to hgb <8 and EGD decision for PRBC today. K stable and lasix as outlined and remains OFF IGOR and likely should not be on such Will need continued f/u nephrology at dc #Pancytopenia As above, with worsening anemia concerning for acute blood loss anemia from GI vs source. Had mildly low WBCs in November, wbc count improved, now since January has been 4 or less with chronic anemia. B12/folate wnl. Copper pending low plt since Nov w/ peripheral smear noting rouloux noted, previous SPEP years ago did show an M-spike --> all worrisome for primary bone marrow disease. SPEP/UPEP; serum immunofixation, light chains, etc --> studies PENDING and will need f/u as discussed w/ daughter/patient --> once returned if worrisome for MM/similar will need oncology/bone marrow bx. Note does have elevated ESR/CRP which could be in setting of anemia/bleeding but w/ pancytopenia and below should have eval for underlying MM in f/u Will need f/u nephrology as well as reported no joint pains/arthralgias w/ prior findings but patient endorses chronic joint pains (worse in kness) in addition to possibly heme/onc #pacemaker status - interrogation shows that she is undersensing on the atrial lead, presenting rhythm afib w/ ventricular pacing at 80bpm, estimated longevity ~5 months. Metoprolol as above and WILL NEED BATTERY EXCHANGE, cards to arrange #Hypertension - stable/low at times but tolerating metoprolol for HR control. Remains OFF lisinopril as above. Lasix as outlined and will monitor and appears stable #Hoarse Voice - intermittent hoarseness since extubation after ICU admission in November 2024, ?potential for vocal cord injury. Daughter req further eval pending resolution in acute conditions. Tolerating diet and rec f/u otolaryngology post-dc for laryngoscopy . PPI for above and appeared improved on repeat. ?if needing continued PPI baseline but would continue w/ concerns above #Deconditioning - suspected 2nd to recent prolonged admission in November 2024 here at [facility] due to septic shock from obstructing kidney stone. S/p rehab at [facility], then was at [facility], then [facility], and then ultimately at [facility] with home PT/OT there PT/OT and plans for return to [facility] at [facility] Dispo: continued inpatient stay, PRBC as outlined and monitoring repeat blood counts w/ IV lasix to prevent overload. Remains on telemetry and off eliquis. If hgb stable/renal function and HF standpoint, likely dc to [facility] on Friday. Voicemail for daughter 03/04 (Isabela [phone]) and will update as able/requested but otherwise ensure touching base tomorrow to confirm plan for Friday Will need close f/u cardiology at [facility], also PCP/oncology pending testing for pancytopenia Admission and Anticipated Discharge Date Admission Date: February 26, 2025 Supervising Physician Co-Signing Physician Notes The patient was not seen by me. The chart was reviewed. Case discussed with JEROMY Thurston. Agree with assessment and plan Subjective Eval this morning, sitting up in bed. No further blood in urine or stool but hgb dropped <8 and decision to transfuse. Consent obtained and discussed to alert of any issues during transfusion. Lasix to be given with transfusion. Breathing stable, no increased SOB. Legs without significant edema. No abdominal pain Discussed monitoring blood counts. Physical Exam 2 Physical Exam: General: 89yo female sitting up in recliner chair eating breakfast, reports feeling better, no SOB, some NICHOLAS but improved, no abdominal pain and improved appetite, no bleeding reported HEENT: head atraumatic, normocephalic, mmm, trachea midline, no significant JVD Resp: diminished in the bases, no wheezing/rales, on room air 94% CV: irregularly irregular, rates 80-90s, +systolic murmur, NO PITTING EDEMA, chronic venous changes, OA of knees but calves nontender and pulses present GI: +BS, soft/NT no meza, purewick in place w/ cannister on wall with YELLOW URINE, no clots/hematuria noted MSK/Neuro: b/l OA knees but otherwise nonfocal, not confused, answering questions appropriately Psych: AOx3, cooperative with exam Results & Data Results & Data Vital Signs (Past 12 Hours) Vital Signs Temp Pulse Pulse Resp BP BP Pulse Ox 03/05/25 07:44 36.5 C 71 20 115/73 94 03/05/25 07:41 91 H 03/05/25 03:42 36.4 C L 103 H 18 114/75 93 03/04/25 23:40 36.3 C L 82 16 97/66 L 93/69 L 95 03/04/25 23:00 98 H O2 Del Method 03/05/25 07:44 Room Air 03/05/25 07:41 03/05/25 03:42 Room Air 03/04/25 23:40 Room Air 03/04/25 23:00 Laboratory Results 03/05/25 06:28 03/05/25 06:28 PG Care Time/CCT Total # of Minutes Spent Total Time Spent with Patient: Total time spent is greater than 50% in coordination of care (as documented) at patient's floor/unit and/or counseling patient: Coding Level of Care Code 68690 SUB INP/OBS CARE 3/50MIN Diagnoses Acute exacerbation of CHF (congestive heart failure) I50.9 Atrial fibrillation, unspecified type I48.91 Atrial fibrillation type: unspecified HTN (hypertension) I10 Right ureteral calculus N20.1 Pancytopenia D61.818 Pacemaker Z95.0 Hyperthyroidism E05.90 Heme positive stool R19.5 Hematuria R31.9 (2) Atrial fibrillation Atrial fibrillation type: unspecified Qualified Code(s): I48.91 - Unspecified atrial fibrillation
[2025-03-05] MEDS ORDERED: FUROSEMIDE INJ 20 MG/2 ML VIAL IV ONE (08:27)
[2025-03-05] MEDS ORDERED: SODIUM CHLORIDE 0.9% 100 ML IV PRN (08:27)
[2025-03-05] MEDS: IRON SUCROSE 300 MG in SODIUM CHLORIDE 0.9% 250 ML IV ONE (09:24)
[2025-03-05] MEDS: PANTOprazole 40 MG TAB PO STA (11:10)
[2025-03-05] MEDS ORDERED: Nursing to Pharmacy Communication SCH (11:30)
[2025-03-05] MEDS: FUROSEMIDE INJ 20 MG/2 ML VIAL IV ONE (16:16)
[2025-03-05 17:06] LABS: Hematocrit (blood only) 28.7 % (37.0-47.0); Hemoglobin 9.3 g/dl (12.0-16.0)
[2025-03-05] MEDS: PANTOprazole 40 MG TAB PO SCH (20:10)
[2025-03-06 06:51] LABS: Basophils # (auto) 0.03 K/uL (0.00-0.20); Basophils % (auto) 0.8 %; Eosinophils # (auto) 0.14 K/uL (0.00-0.50); Eosinophils % (auto) 3.7 %; Hematocrit (blood only) 26.9 % (37.0-47.0); Hemoglobin 8.8 g/dl (12.0-16.0); Immature Granulocytes # (auto) 0.01 K/uL (0.01-0.20); Immature Granulocytes % (auto) 0.3 %; Lymphocytes # (auto) 0.91 K/uL (1.20-3.40); Lymphocytes % (auto) 24.1 %; Mean Corpuscular Hemoglobin 29.1 pg (25.0-34.0); Mean Corpuscular Hgb Conc 32.7 g/dL (32.0-36.0); Mean Corpuscular Volume 89.1 fL (80.0-100.0); Mean Platelet Volume 10.8 fL (9.4-12.4); Monocytes # (auto) 0.95 K/uL (0.11-0.59); Monocytes % (auto) 25.1 %; Neutrophils # (auto) 1.74 K/uL (1.40-6.50); Platelet Count 92 K/uL (130-400); RDW Coefficient of Variation 16.7 % (11.5-14.5); RDW Standard Deviation 53.2 fL (36.4-46.3); Red Blood Count 3.02 M/uL (4.20-5.40); White Blood Count 3.78 K/ul (4.8-10.8)
--- NOTE | 2025-03-06 08:00 | Hospitalist Progress Note ---
Date of Service March 06, 2025 Assessment & Plan (1) Acute exacerbation of CHF (congestive heart failure): (2) Atrial fibrillation: (3) HTN (hypertension): (4) Right ureteral calculus: (5) Pancytopenia: (6) Pacemaker: (7) Hyperthyroidism: (8) Heme positive stool: (9) Hematuria: Plan Radha is a 89F w/ PMH of HTN, AFib w/ pacemaker, nephrolithiasis, CKD, Vitamin D deficiency, arthritis, and chronic venous insufficiency who presented 02/26 for evaluation of increasing fatigue, edema, and dyspnea on exertion. Tx CHF however then developing blood in urine and stool noting recent meloxicam use on Eliquis for afib w/ hx GI bleed 2023 requiring continued inpatient stay/evaluation. #ANEMIA, #suspected UGIB, #ABLA - suspect MULTIFACTORIAL (see prior days note) but current admission w/ concerns for UGIB w/ +fecal occult in patient w/ hx GI bleeding on eliquis w/ recent rx Meloxicam ~2wks for joint pain and drop in hgb w/ PJ GI consulted, s/p EGD with Dr Frost on 03/03 -->EGD w/ LARGE cratered ulcer involving pylorus and first part of the duodenum. Noted ulcer base black pigmented spot potentially source of bleeding -- did NOT need intervention. Benign appearance but biopsies taken/Hpylori testing. GI rec PPI BID x 4 wks, then daily thereafter. Avoid NSAID/ASA. Rec holding AC at least 7 days (confirmed w/ Dr Keane ok to hold until seen in f/u) PPI converted to PO BID and will need continued x 1 month then once daily life long s/p 1u PRBC for hgb 7.6 on 03/06 --> rise to 8.8, appropriate. -Was also given Venofer 200+300mg and could consider repeat dosing Repeat fecal occult 03/05 negative Monitor blood counts/any further bleeding #Acute HFpEF, #Afib w/ RVR - no prior diuretics at baseline (however was on HCTZ in the past). Initially suspected 2nd to increased salt intake from soups at home but further discussion w/ daughter patient had poor PO intake and was given soups due to not feeling hungry and ?if related to NSAID use w/ bleeding/PJ on admission as above and possible recent reduction in metoprolol from 25mg twice daily to 25mg once daily w/ recent rehab/[facility] facility moves per fill hx. TSH wnl ECHO w/ EF 55-60%, normal RV function, mild valvular disease (mild AR, MR, TR), mild pulm HTN Cards consulted, multaq discontinued and focus on rate control Metoprolol increased back to prior 25mg BID Eliquis on HOLD due to GI bleeding above -- rec f/u cards about consider WATCHMAN procedure in f/u given prior/current concerns underlying GIB (notable was not on baseline PPI therapy since 2023 bleeding?) IGOR on hold (would not resume w/ PJ/hyperkalemia prior) Recs for lasix M/W/F. Did give 20mg PO on 03/04, 20mg IV on 03/05 w/ PRBC and given additional 20mg PO for today and will monitor for additional dose in AM. Mag replacement ordered and remains on telemetry to see if ?needing increased BB w/ activity pending repeat exams #UTI, Hematuria- suspected/possible w/ hematuria/clots but ?related to low plts w/ recent NSAID/AC use. See prior day note/repeat CTAP w/o clot burden but UA appeared + and CTX IV started - No further hematuria since on abx and contnues on such, f/u repeat urine cx w/ pin point growth this morning but likely able to stop after today unless growth w/ resistance #PJ, hyperkalemia - baseline ~1, w/ 1.7 on admit. ?2nd to NSAID use +/- GI bleeding as above +/- CHF from afib w/ RVR and recent lisinopril use Venofer/PRBC as above and has been provided lasix as outlined w/ continued improvement in renal function and Cr currently 1.23, K stable 4.4 Avoid NSAIDs as above, renal dose meds/avoid toxins BMP in AM, F/u Dr Mesa outpatient #pacemaker status - interrogation shows that she is undersensing on the atrial lead, presenting rhythm afib w/ ventricular pacing at 80bpm, estimated longevity ~5 months --> WILL NEED BATTERY EXCHANGE, cards f/u #Hypertension - stable/low at times but tolerating metoprolol for HR control and now much improved/stable. Remains OFF lisinopril as above and monitoring to increase metoprolol pending continued telemetry/rates #Hoarse Voice - intermittent hoarseness since extubation after ICU admission in November 2024, ?potential for vocal cord injury. Daughter req further eval pending resolution in acute conditions. Tolerating diet and rec f/u otolaryngology post-dc for laryngoscopy. PPI continued above and appears improved on repeat exams #Deconditioning - suspected 2nd to recent prolonged admission in November 2024 here at [facility] due to septic shock from obstructing kidney stone. S/p rehab at [facility], then was at [facility], then [facility], and then ultimately at [facility] with home PT/OT there PT/OT and plans for return to [facility] at [place] #Pancytopenia As above, with worsening anemia concerning for acute blood loss anemia from GI vs source. Had mildly low WBCs in November, wbc count improved, now since January has been 4 or less with chronic anemia. B12/folate wnl. Copper wnl. 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 SPEP/UPEP; serum immunofixation, light chains, etc --> Serum immunofixation w/ faint indistict bands highlighted by one or more immunofixation reagents. Usually reactive/inflammatory conditions w/ immune complexes or oligoclonalimmunoglobulins HOWEVER clonal B-cell or plasma cell cannot be completely excluded. Slight elevation free kappa LC, ESR/CRP elevation (?2nd anemia) Rec f/u heme/onc at [facility] for ongoing eval/consideration bone marrow biopsy as desired -- did discuss with daughter day prior re outpt f/u eval (also note has received multiple blood transfusions over past year) Can touch base in AM if needed but otherwise rec f/u outpatient when recovered from above Dispo: continued inpatient stay, [facility]. Daughter Isabela updated at bedside 03/05, 03/06 (cell [phone]) Will need close f/u PCP, cardiology at [facility] (CHF/afib/battery exchange/consideration watchman), heme/onc for discussion bone marrow bx as desired Rx metoprolol, lasix at [facility], PPI BID. Continue to hold eliquis until cards f/u per [facility] Admission and Anticipated Discharge Date Admission Date: February 26, 2025 Supervising Physician Co-Signing Physician Notes The patient was not seen by me. The chart was reviewed. Case discussed with JEROMY Thurston. Agree with assessment and plan Subjective Patient evaluated this morning, daughter in room. Reports feeling well, breathing stable, on RA. HR stable but some elevations at times but tolerating metoprolol dose but discussed increase if needed pending continued monitoring. Hgb stable, fecal occult neg on repeat. No further bleeding reported. Increased appetite, wanting cheeseburger for lunch but not allowed due to diet. Will call kitchen/accommodate. Hopeful [facility] in AM pending course. Questions/concerns addressed at this time. Physical Exam 2 Physical Exam: General: 89yo female sitting up in chair, daughter in room, breathing stable/improved HEENT: head atraumatic, normocephalic, mmm, trachea midline, no significant JVD Resp: diminished in the bases (improved today), no wheezing/rales, on room air 96% CV: irregularly irregular, rates 90s, occ up to 130s w/ activity, +systolic murmur, no pitting edema, chronic venous changes, OA of knees but calves nontender and pulses present GI: +BS, slightly distended but no overt tenderness/guarding/rebound no meza, purewick in place w/ canister on wall with YELLOW URINE, no clots/hematuria noted MSK/Neuro: b/l OA knees but otherwise nonfocal, not confused, answering questions appropriately Psych: AOx3, cooperative with exam Results & Data Results & Data Vital Signs (Past 12 Hours) Vital Signs Temp Pulse Pulse Resp BP Pulse Ox O2 Del Method 03/06/25 07:58 36.4 C L 84 20 146/76 H 95 Room Air 03/06/25 03:30 36.6 C 70 18 122/78 95 Room Air 03/05/25 23:26 36.6 C 83 18 139/75 95 Room Air 03/05/25 22:01 109 H Laboratory Results 03/06/25 06:01 03/06/25 06:01 Mag 1.8 BNP 688 Stool occult NEGATIVE PG Care Time/CCT Total # of Minutes Spent Total Time Spent with Patient: Total time spent is greater than 50% in coordination of care (as documented) at patient's floor/unit and/or counseling patient: Coding Level of Care Code 33177 SUB INP/OBS CARE 350MIN Diagnoses Acute exacerbation of CHF (congestive heart failure) I50.9 Atrial fibrillation, unspecified type I48.91 Atrial fibrillation type: unspecified HTN (hypertension) I10 Right ureteral calculus N20.1 Pancytopenia D61.818 Pacemaker Z95.0 Hyperthyroidism E05.90 Heme positive stool R19.5 Hematuria R31.9 (2) Atrial fibrillation Atrial fibrillation type: unspecified Qualified Code(s): I48.91 - Unspecified atrial fibrillation
[2025-03-06 08:03] LABS: BUN Creatinine Ratio 22.8 (10-20); Calcium 8.8 mg/dl (8.6-10.3); Creatinine Clr Calc Pharmacy 33.4 ml/min; Magnesium 1.8 mg/dl (1.7-2.4); Potassium 4.4 mmol/L (3.5-5.1)
[2025-03-06] MEDS: FUROSEMIDE 20 MG TAB PO ONE (11:13)
[2025-03-06] MEDS: MAGNESIUM SULFATE / D5W 1 GM/100 ML BAG IV ONE (11:13)
[2025-03-06] MEDS: COUGH DROP (SUGAR FREE) LOZ 24 LOZ/1 BOX BUCCAL PRN (20:23)
[2025-03-07 07:07] LABS: Creatinine Ur 32 mg/dL (20-275); Protein, Urine Random 15 mg/dL (5-24); Ur Albumin % 49 %; Ur Alpha-1-globulin % 4 %; Ur Alpha-2-globulin % 13 %; Ur Beta Globulin % 18 %; Ur Gamma Globulin % 16 %; Ur Protein/Creat Ratio mg/g 469 mg/g creat (24-184); Urine Abnormal Protein Band 1 DNR mg/dL (NONE DETECTED); Urine Abnormal Protein Band 2 DNR mg/dL (NONE DETECTED); Urine Protein/Creatinine Ratio 0.469 (0.024-0.184)
[2025-03-07 08:02] LABS: Hematocrit (blood only) 27.6 % (37.0-47.0); Hemoglobin 8.8 g/dl (12.0-16.0); Mean Corpuscular Hemoglobin 28.5 pg (25.0-34.0); Mean Corpuscular Hgb Conc 31.9 g/dL (32.0-36.0); Mean Corpuscular Volume 89.3 fL (80.0-100.0); Mean Platelet Volume 10.7 fL (9.4-12.4); Platelet Count 96 K/uL (130-400); RDW Coefficient of Variation 16.9 % (11.5-14.5); RDW Standard Deviation 53.4 fL (36.4-46.3); Red Blood Count 3.09 M/uL (4.20-5.40); White Blood Count 3.99 K/ul (4.8-10.8)
--- NOTE | 2025-03-07 08:18 | XRay Report ---
EXAM: XR chest 1V portable CLINICAL HISTORY: f/u TECHNIQUE: Radiograph of chest was acquired. COMPARISON: 03/01/2025 11:34:57 TREAD CUTTER FINDINGS: Mild rotation of the patient. Cardiac pacemaker is noted on left side. Cardiomegaly noted Blunted left costophrenic angle / costophrenic angle overlapped by left cardiac border Right costophrenic angle appears normal. Rest of both lungs appears clear. No acute osseous abnormality. IMPRESSION: 1. Mild rotation of the patient. 2. Cardiac pacemaker is noted on left side -stable. 3. Cardiomegaly noted-stable. 4. Blunted left costophrenic angle / costophrenic angle overlapped by left cardiac border-stable. 5. The right pleural effusion is resolved in present study. Electronically signed by Kelvin Brito 03-07-2025 08:17 AM
[2025-03-07 08:26] LABS: Calcium 8.9 mg/dl (8.6-10.3); Creatinine Clr Calc Pharmacy 35.3 ml/min; Magnesium 1.9 mg/dl (1.7-2.4); Potassium 4.2 mmol/L (3.5-5.1)
[2025-03-07] MEDS: BENZONATATE 100 MG CAPSULE PO PRN (08:42)
--- NOTE | 2025-03-07 09:12 | Hospitalist Progress Note ---
Date of Service March 07, 2025 Assessment & Plan (1) Heme positive stool: Plan: s/p EGD with Dr Frost on 03/03 EGD w/ LARGE cratered ulcer involving pylorus and first part of the duodenum. Noted ulcer base black pigmented spot potentially source of bleeding -- did NOT need intervention. Con't PPI BID for 1 month hold eliquis for 7 days (2) Acute exacerbation of CHF (congestive heart failure): Plan: -metoprolol -given lasix dose (3) Atrial fibrillation: Plan: -eliquis on hold for 7 days 2nd to GI bleed (4) HTN (hypertension): Plan: -metoprolol increased to 25mg BID -lisinopril on hold (5) Right ureteral calculus: (6) Pancytopenia: (7) Pacemaker: Plan: pacemaker status - interrogation shows that she is undersensing on the atrial lead, presenting rhythm afib w/ ventricular pacing at 80bpm, estimated longevity ~5 months --> WILL NEED BATTERY EXCHANGE, ca (8) Hyperthyroidism: (9) Hematuria: Plan: suspected/possible w/ hematuria/clots but ?related to low plts w/ recent NSAID/AC use. See prior day note/repeat CTAP w/o clot burden but UA appeared + and CTX IV started - No further hematuria since on abx and contnues on such, f/u repeat urine cx w/ pin point growth this morning but likely able to stop after today -abx d/c'd today Plan Radha is a 89F w/ PMH of HTN, AFib w/ pacemaker, nephrolithiasis, CKD, Vitamin D deficiency, arthritis, and chronic venous insufficiency who presented 02/26 for evaluation of increasing fatigue, edema, and dyspnea on exertion. Tx CHF however then developing blood in urine and stool noting recent meloxicam use on Eliquis for afib w/ hx GI bleed 2023 requiring continued inpatient stay/evaluation. Dispo: Pt awaiting discharged to [facility] Will need close f/u PCP, cardiology at dc (CHF/afib/battery exchange/consideration watchman), heme/onc for discussion bone marrow bx as desired Rx metoprolol, lasix at dc, PPI BID. Continue to hold eliquis until cards f/u per [facility] Admission and Anticipated Discharge Date Admission Date: February 26, 2025 Subjective No events overnight. Pt resting comfortably in bed. Review of Systems Review of Systems: CONST: Negative for fever, body aches and chills. HENT: Negative for neck pain/stiffness, headache, congestion, sore throat, swelling. EYES: Negative for discharge/pain or vision changes. RESP: Negative for cough/hemoptysis and shortness of breath. CV: Negative chest pain, difficulty breathing, palpitations. ABD: Negative pain, nausea, vomiting. : Negative increase frequency, dysuria, blood in urine or stool. MUSC: Negative for muscle aches, edema. SKIN: Negative rash, lesions/sores. NEURO: Negative headache, dizziness, weakness. Physical Exam Physical Exam: GENERAL APPEARANCE NAD, activity normal for age, well developed/ well nourished, no cyanosis, pallor, or diaphoresis. EYES lids/conjunctiva normal. EARS/NOSE/THROAT Mucous membranes moist, nares normal, lips/teeth normal uvula midline without oral pharyngeal erythema, exudate or swelling TMs normal bilaterally. No lymphangitis/lymphedema. HEAD/NECK normocephalic atraumatic, no facial trauma, neck is supple. RESPIRATORY respiratory effort normal, speaks in full sentences, no tripod position, no accessory muscle use. Lungs clear to auscultation without rhonchi, wheezes, rales CARDIAC Regular rate and rhythm, no edema. ABDOMINAL Soft, ND/NT. No evidence of fluid wave. No pulsatile masses on exam, rebound tenderness, Wheeler sign or pain over Mcburney's point. MUSCLES/EXTREMITIES No abnormal range of motion, no swelling. SKIN Warm, pink and dry. No rashes, dermatoses, petechiae or lesions. NEUROLOGICAL Speech is clear and appropriate. Normal level of consciousness. Gait and coordination are normal. 5/5 strength in all extremities. PSYCH Normal mood and affect. Judgement/competence is appropriate Results & Data Results & Data Vital Signs (Past 12 Hours) Vital Signs Temp Pulse Pulse Resp BP BP Pulse Ox 03/07/25 07:55 36.3 C L 95 H 17 156/82 H 95 03/07/25 07:51 03/07/25 05:40 80 03/07/25 03:40 36.5 C 90 18 120/65 96 03/06/25 23:23 36.4 C L 78 20 148/72 H 94 03/06/25 21:41 86 O2 Del Method 03/07/25 07:55 Room Air 03/07/25 07:51 Room Air 03/07/25 05:40 03/07/25 03:40 Room Air 03/06/25 23:23 Room Air 03/06/25 21:41 PG Care Time/CCT Total # of Minutes Spent Total Time Spent with Patient: Total time spent is greater than 50% in coordination of care (as documented) at patient's floor/unit and/or counseling patient: Coding Level of Care Code 91804 SUB INP/OBS CARE 2/35MIN Diagnoses Heme positive stool R19.5 Acute exacerbation of CHF (congestive heart failure) I50.9 Atrial fibrillation, unspecified type I48.91 Atrial fibrillation type: unspecified HTN (hypertension) I10 Right ureteral calculus N20.1 Pancytopenia D61.818 Pacemaker Z95.0 Hyperthyroidism E05.90 Hematuria R31.9 (3) Atrial fibrillation Atrial fibrillation type: unspecified Qualified Code(s): I48.91 - Unspecified atrial fibrillation
[2025-03-07 19:53] VITALS: RESP 18
[2025-03-08 03:34] VITALS: TEMP 97.5
[2025-03-08 07:48] VITALS: PULSE 98; O2SAT 96
[2025-03-08 07:59] LABS: Hematocrit (blood only) 27.4 % (37.0-47.0); Hemoglobin 8.8 g/dl (12.0-16.0); Mean Corpuscular Hemoglobin 28.9 pg (25.0-34.0); Mean Corpuscular Hgb Conc 32.1 g/dL (32.0-36.0); Mean Corpuscular Volume 89.8 fL (80.0-100.0); Mean Platelet Volume 10.3 fL (9.4-12.4); Platelet Count 96 K/uL (130-400); RDW Coefficient of Variation 16.9 % (11.5-14.5); RDW Standard Deviation 53.6 fL (36.4-46.3); Red Blood Count 3.05 M/uL (4.20-5.40); White Blood Count 3.64 K/ul (4.8-10.8)
--- NOTE | 2025-03-08 08:26 | Communication Note ---
Date of Service: March 08, 2025 Path and gastric ulcer No H. pylori no cancer. For clarification pathologist notes no ulcer, do not biopsy ulcer base typically. Multiple biopsies of the rolling edge of the ulcer were performed. Benign biopsies, consistent with this. Likely related from NSAID use. Long-term PPI recommended
--- NOTE | 2025-03-08 09:14 | Discharge Summary ---
Discharge Summary Date of Service March 08, 2025 Principal Dx & Hospital Course #1 = Principal Diagnosis (1) Heme positive stool: s/p EGD with Dr Frost on 03/03 EGD w/ LARGE cratered ulcer involving pylorus and first part of the duodenum. Noted ulcer base black pigmented spot potentially source of bleeding -- did NOT need intervention. Con't PPI BID for 1 month hold eliquis for 7 days (2) Acute exacerbation of CHF (congestive heart failure): -metoprolol -given lasix dose (3) Atrial fibrillation: -eliquis on hold for 7 days 2nd to GI bleed (4) HTN (hypertension): -metoprolol increased to 25mg BID -lisinopril on hold (5) Right ureteral calculus: (6) Pancytopenia: (7) Pacemaker: pacemaker status - interrogation shows that she is undersensing on the atrial lead, presenting rhythm afib w/ ventricular pacing at 80bpm, estimated longevity ~5 months --> WILL NEED BATTERY EXCHANGE, ca (8) Hyperthyroidism: (9) Hematuria: suspected/possible w/ hematuria/clots but ?related to low plts w/ recent NSAID/AC use. See prior day note/repeat CTAP w/o clot burden but UA appeared + and CTX IV started - No further hematuria since on abx and contnues on such, f/u repeat urine cx w/ pin point growth this morning but likely able to stop after today -abx d/c'd today Plan Radha is a 89F w/ PMH of HTN, AFib w/ pacemaker, nephrolithiasis, CKD, Vitamin D deficiency, arthritis, and chronic venous insufficiency who presented 02/26 for evaluation of increasing fatigue, edema, and dyspnea on exertion. Tx CHF however then developing blood in urine and stool noting recent meloxicam use on Eliquis for afib w/ hx GI bleed 2023 requiring continued inpatient stay/evaluation. Dispo: Pt awaiting discharged to [facility] Will need close f/u PCP, cardiology at de (CHF/afib/battery exchange/consideration watchman), heme/onc for discussion bone marrow bx as desired Rx metoprolol, lasix at dc, PPI BID. Continue to hold eliquis until cards f/u per [facility] Admission HPI Per Admitting Provider Radha Floyd is a very pleasant 89-year-old female with history of atrial fibrillation on apixaban anticoagulation, s/p dual chamber pacemaker placement, hypertension, hypothyroidism presenting with feeling "blah". Patient endorses over the last 2 weeks having fairly persistent nausea as well as shortness of breath at rest and with very minimal exertion, decreased exercise tolerance and markedly worsening bilateral lower extremity and abdominal wall edema. The symptoms have acutely worsened over the last 2 days. Patient reports orthopnea as well as paroxysmal nocturnal dyspnea. She does not monitor her weight but does feel like she has gained quite a bit and fluid. No report of chest pain or cough. No vomiting or diarrhea. Patient has had a very prolonged medical course starting in November 2024 when she was admitted here to the intensive care unit for sepsis secondary to infected obstructing right renal stone. Patient was ultimately discharged to [facility] on December 16, 2024. She stayed there for approximately 18 days then was moved to [facility], and then moved to [facility] and is presently at [facility] on respite care. In the ER patient afebrile, hemodynamically stable and saturating well on room a ir. She is notably tachypneic with conversational dyspnea Discharge Exam GENERAL APPEARANCE NAD, activity normal for age, well developed/ well nourished, no cyanosis, pallor, or diaphoresis. EYES lids/conjunctiva normal. EARS/NOSE/THROAT Mucous membranes moist, nares normal, lips/teeth normal uvula midline without oral pharyngeal erythema, e xudate or swelling TMs normal bilaterally. No lymphangitis/lymphedema. HEAD/NECK normocephalic atraumatic, no facial trauma, neck is supple. RESPIRATORY respiratory effort normal, speaks in full sentences, no tripod position, no accessory muscle use. Lungs clear to auscultation without rhonchi, wheezes, rales CARDIAC Regular rate and rhythm, no edema. ABDOMINAL Soft, ND/NT. No evidence of fluid wave. No pulsatile masses on exam, rebound tenderness, Wheeler sign or pain over Mcburney's point. MUSCLES/EXTREMITIES No abnormal range of motion, no swelling. SKIN Warm, pink and dry. No rashes, dermatoses, petechiae or lesions. NEUROLOGICAL Speech is clear and appropriate. Normal level of consciousness. Gait and coordination are normal. 5/5 strength in all extremities. PSYCH Normal mood and affect. Judgement/competence is appropriate Discharge Plan Discharge Items Patient Disposition: Transfer [facility] Reason For Visit: ACUTE CHF EXACERBATION Discharge Diagnosis: UGIB, CHF Condition on Discharge: Fair Activity: Resume your previous activity Non-emergency contact: Primary Care Provider Call non-emergency contact if: you have any medication questions Follow-up/Referrals: Razia Mesa MD [Physician] - Kelvin Vee DO [Primary Care Provider] - Roque Keane DO [Assistant Director Of Nursing] - Yolanda Ricahrds MD [Physician] - Diet: Regular Addtl Attending Provider Instructions: Admitted for HEART FAILURE -- thought to be MULTIFACTORIAL -- possible reduced metoprolol recently but also possible related to recent NSAID use with meloxicam and concerns for bleeding from GI source with your history but also urine with recent infection earlier this year. EGD w large cratered ulcer, likely from eliquis + MELOXICAM use Continue protonix TWICE daily x 4 weeks, then protonix once daily life long. Should AVOID ALL NSAIDs (meloxicam, mobic, naproxen, ibuprofen, aleve, motrin, etc). Can use TYLENOL 1000mg up to three times daily. MAX 3000mg/24hour period of time We did send out lab testing to evaluate for possible bone marrow process as cause for anemia. Will need follow up and consider referral to oncology/hematology to consider bone marrow biopsy/further discussion in follow up. Pacemaker battery is LOW and you will need generator exchange in the next 5 months. Cardiology has increased metoprolol to 25mg twice daily for now and STOPPED the multaq. Please follow up with primary care, cardiology and urology at discharge. GI as needed. Return with any fever/chills, chest pain, worsening shortness of breath, bleeding, abdominal pain or for any other symptoms concerning for you. Follow up with cardiology to restart eliquis Pending Studies at Discharge: Yes (SPEP, EPEP) Stand-Alone Forms: My [facility] Skilled Items Patient informed of condition?: No DNR: No Discharge Level of Care: Acute rehab Communicable Disease: No Discharge Prognosis: Stable Lines: None Urinary Catheter: No Medications and DC Order Prescriptions: New metoprolol succinate 25 mg Tablet Extended Release 24 Hr 25 mg PO BID Qty: 60 0RF furosemide 20 mg tablet See Rx Instructions .ROUTE .COMPLEX Qty: 12 0RF Rx Instructions: 20mg by mouth friday, friday, friday pantoprazole 40 mg Tablet,Delayed Release (Dr/Ec) 40 mg PO BID Qty: 60 0RF furosemide 20 mg Tablet 20 mg PO Q2D Qty: 30 0RF Continued nitroglycerin [Nitrostat] 0.4 mg tablet, sublingual 0.4 mg SL Q5M PRN (Reason: Chest Pain) Patient Comments: never had to use loperamide [Imodium A-D] 2 mg capsule 2 mg PO Q4H PRN (Reason: Diarrhea) Rx Instructions: ENDS 03/06/25. administer after each loose stool until symptoms controlled; do not exceed 8 mg per 24 hrs thiamine HCl (vitamin B1) [Vitamin B-1] 100 mg Tablet 100 mg PO DAILY benzonatate 100 mg Capsule 100 mg PO Q8H PRN (Reason: Cough) albuterol sulfate [Ventolin HFA] 90 mcg/actuation Hfa Aerosol Inhaler 2 puff INHALATION Q6H PRN (Reason: DYSPNEA/WHEEZING) Held Eliquis 2.5 mg tablet 2.5 mg PO BID Discontinued dronedarone [Multaq] 400 mg tablet 400 mg PO BID (DME) Lift Chair Misc See Rx Instructions .Route Qty: 1 0RF Rx Instructions: As directed (DME) nebulizers Misc See Rx Instructions .Route Qty: 1 0RF Rx Instructions: As directed meloxicam 7.5 mg Tablet 7.5 mg PO DAILY metoprolol succinate 25 mg tablet extended release 24 hr 25 mg PO QAM Discharge Orders: Discharge Order (Routine); Ordered 03/08/25 Ordered By: Vivek Singer Admission Data Admit Date/Time: 02/26/25 22:57 Attending Provider: Vivek Singer Admit Provider: Alicia Luu Primary Care Provider: Kelvin Vee. Other Providers: Alicia Luu; Teofilo Frost; Chalino Cruz Hospital Stay Data Consultations 02/26/25 22:16 ED Decision to Admit Stat 02/26/25 22:57 Consult Cardiology Routine 03/02/25 07:47 Consult Gastroenterology Routine 03/02/25 11:55 Consult Urology Routine Procedures Performed Operation Date: 03/03/25 16:30 Actual Procedures p EGD Biopsy Cytology - Teofilo Frost MD Diagnostic Imagining Performed 03/03/25 06:56 CT Abd and Pelvis [CT abd pelvis wo con] Urgent Pending Results Patient Have Any Pending Studies at Discharge: Yes (SPEP, EPEP) Discharge Instructions Given to Patient (Per Discharging Provider) Admitted for HEART FAILURE -- thought to be MULTIFACTORIAL -- possible reduced metoprolol recently but also possible related to recent NSAID use with meloxicam and concerns for bleeding from GI source with your history but also urine with recent infection earlier this year. EGD w large cratered ulcer, likely from eliquis + MELOXICAM use Continue protonix TWICE daily x 4 weeks, then protonix once daily life long. Should AVOID ALL NSAIDs (meloxicam, mobic, naproxen, ibuprofen, aleve, motrin, etc). Can use TYLENOL 1000mg up to three times daily. MAX 3000mg/24hour period of time We did send out lab testing to evaluate for possible bone marrow process as cause for anemia. Will need follow up and consider referral to oncology/hematology to consider bone marrow biopsy/further discussion in follow up. Pacemaker battery is LOW and you will need generator exchange in the next 5 months. Cardiology has increased metoprolol to 25mg twice daily for now and STOPPED the multaq. Please follow up with primary care, cardiology and urology at discharge. GI as needed. Return with any fever/chills, chest pain, worsening shortness of breath, bleeding, abdominal pain or for any other symptoms concerning for you. Follow up with cardiology to restart eliquis Total Time Total Time Spent Total Time Spent (In Minutes): 50 Coding Level of Care Code 71604 INP/OBS DISCH >30 MIN Diagnoses Heme positive stool R19.5 Acute exacerbation of CHF (congestive heart failure) I50.9 Atrial fibrillation, unspecified type I48.91 Atrial fibrillation type: unspecified HTN (hypertension) I10 Right ureteral calculus N20.1 Pancytopenia D61.818 Pacemaker Z95.0 Hyperthyroidism E05.90 Hematuria R31.9
[2025-03-08 09:23] VITALS: BP 122/71
== END 2025-03-08 10:33 | disposition home or self-care (01) | DRG 291 ==
LOC: ED 19:19 → SUATTDRO 22:57 → 2N 22:57